=== PATIENT | male | born 1970 | race African-American/Black ===

== ENCOUNTER 2017-04-09 08:48 | Inpatient (IN) | payer OTHER ==
[2017-04-09] MEDS ORDERED: MORPHINE SULFATE 10 MG/ML SYRINGE IVP STA (09:18)
--- NOTE | 2017-04-09 09:21 | ED ---
General Adult HPI - General Chief complaint: Back Pain/Injury Stated complaint: TRICIA, COLD, LOWER BACK, RT SHOULDER PAIN Time Seen by Provider: 04/09/17 09:02 Source: patient, RN notes reviewed Mode of arrival: wheelchair Limitations: no limitations - History of Present Illness Initial comments: Patient is a 46-year-old male presents emergency room for multiple complaints. Patient states he has a history of chronic back pain. Patient states back pain has been getting worse today. Patient states he takes [place] at home. Patient states [place] was not relieving his symptoms. Patient also states he's having right shoulder pain. Patient states his right shoulder pain has been chronic for the past few months. Patient also states that he is feeling short of breath. Patient has been feeling short of breath for the past 3 days and has worsened this morning when he woke up. Patient states he feels like he can't get in a full breath. Patient states has history of pneumonia. Patient denies smoking. Patient denies chest pain. Patient states when he takes a deep breath he's having pain in his mid back area between his shoulder blades. Patient states he's had a wet cough for the past few days. Patient states he's been having on and off chills. Patient states he's feeling dizzy. Patient denies headache. Patient nausea or vomiting. Patient denies abdominal pain. Patient states he is on insulin for type 2 diabetes and blood pressure medications. - Related Data Home Medications Medication Instructions Recorded Confirmed HYDROcodone/APAP 7.5-325MG [[place] 1 tab PO TID PRN 07/19/14 04/09/17 7.5-325] Insulin Glargine [Lantus] 60 unit SQ QAM 07/22/14 04/09/17 Insulin Glulisine [Apidra] 5 units SQ [id number] 04/29/15 04/09/17 Insulin Glulisine [Apidra] 10 units SQ BID 04/29/15 04/09/17 Carvedilol [Coreg] 12.5 mg PO BID 04/09/17 04/09/17 Ergocalciferol [Vitamin D2] 50,000 unit PO MCCARTHY 04/09/17 04/09/17 Lisinopril [Zestril] 10 mg PO DAILY 04/09/17 04/09/17 prednisoLONE ACETATE 1% OPHTH 1 drops RIGHT EYE BID 04/09/17 04/09/17 [Pred Forte 1%] Previous Rx's Medication Instructions Recorded amLODIPine [Norvasc] 10 mg PO DAILY #30 tab 05/01/15 Allergies Allergy/AdvReac Type Severity Reaction Status Date / Time peanut Allergy Anaphylaxis Verified 04/09/17 09:24 Review of Systems ROS Statement: Those systems with pertinent positive or pertinent negative responses have been documented in the HPI. ROS Other: All systems not noted in ROS Statement are negative. Past Medical History Past Medical History: Diabetes Mellitus, Fibromyalgia, Hypertension, Pneumonia, Renal Disease, Sleep Apnea/CPAP/BIPAP Additional Past Medical History / Comment(s): Obesity, chronic renal failure secondary to DM, Lower back pain, carpal tunnel, herniated lumbar disk, fibromylagia, glaucoma History of Any Multi-Drug Resistant Organisms: MRSA Date of last positivie culture/infection: 2012 MDRO Source:: lower back Past Surgical History: No Surgical Hx Reported, Back Surgery Additional Past Surgical History / Comment(s): Incision and drainage r/t abcess removed, eye surgery Past Anesthesia/Blood Transfusion Reactions: Postoperative Nausea & Vomiting ( PONV) Past Psychological History: No Psychological Hx Reported Smoking Status: Never smoker Past Alcohol Use History: None Reported Past Drug Use History: None Reported - Past Family History Father Family Medical History: Diabetes Mellitus, Hypertension Additional Family Medical History / Comment(s): Bladder cancer in father, brother had colon cancer, mother had DIRECTOR PERIOPERATIVE aneurysm. Mother Additional Family Medical History / Comment(s): Mother of brain aneurysm General Exam - General Exam Comments Initial Comments: Sitting in exam room, mild distress Limitations: no limitations General appearance: alert Head exam: Present: atraumatic, normocephalic, normal inspection Eye exam: Present: normal appearance ENT exam: Present: normal exam Neck exam: Present: normal inspection Respiratory exam: Present: decreased breath sounds. Absent: respiratory distress Cardiovascular Exam: Present: regular rate, normal rhythm, normal heart sounds Extremities exam: Present: normal inspection Back exam: Present: normal inspection Neurological exam: Present: alert, oriented X3, CN II-XII intact Psychiatric exam: Present: normal affect, normal mood Skin exam: Present: warm, dry, intact, normal color. Absent: rash Course Vital Signs 04/09/17 04/09/17 04/09/17 08:52 09:03 10:27 Temperature 98.1 F Pulse Rate 98 89 Respiratory 20 24 24 Rate Blood Pressure 186/87 186/86 O2 Sat by Pulse 95 95 Oximetry 04/09/17 04/09/17 04/09/17 10:29 11:23 11:28 Temperature Pulse Rate 93 89 91 Respiratory 22 22 Rate Blood Pressure 186/86 169/79 O2 Sat by Pulse 94 L 95 Oximetry 04/09/17 04/09/17 04/09/17 11:31 12:46 14:06 Temperature 98.6 F 97.3 F L Pulse Rate 90 89 85 Respiratory 24 20 Rate Blood Pressure 210/88 151/77 O2 Sat by Pulse 99 98 Oximetry 04/09/17 14:07 Temperature 97.3 F L Pulse Rate 85 Respiratory 20 Rate Blood Pressure 151/77 O2 Sat by Pulse 98 Oximetry EKG Findings - EKG Comments: EKG Findings:: Normal sinus rhythm, ventricular rate 97 bpm, NH interval 170 ms , QRS duration 80 ms, QT/QTC 360/457 ms Medical Decision Making - Medical Decision Making Patient is a 46-year-old male presents emergency room for evaluation of back pain, shoulder pain and shortness of breath. Patient noted to have an elevated d-dimer. Due to BUN/creatinine patient was sent for a VQ scan. VQ scan negative for PE. Chest x-ray significant for atypical pneumonia. Patient be started on IV antibiotics and admitted. Case discussed with Dr. Kimble who discussed case Dr. Adler who agreed to admit patient. - Lab Data Result diagrams: 04/09/17 09:36 04/09/17 09:36 Lab Results 04/09/17 04/09/17 04/09/17 Range/Units 09:36 09:36 09:36 WBC 10.2 (3.8-10.6) k/uL RBC 4.68 (4.30-5.90) m/uL Hgb 14.0 (13.0-17.5) gm/dL Hct 42.1 (39.0-53.0) % MCV 89.9 (80.0-100.0) fL MCH 29.9 (25.0-35.0) pg MCHC 33.2 (31.0-37.0) g/dL RDW 12.8 (11.5-15.5) % Plt Count 189 (150-450) k/uL Neutrophils % 78 % Lymphocytes % 16 % Monocytes % 4 % Eosinophils % 2 % Basophils % 0 % Neutrophils # 7.9 H (1.3-7.7) k/uL Lymphocytes # 1.6 (1.0-4.8) k/uL Monocytes # 0.4 (0-1.0) k/uL Eosinophils # 0.2 (0-0.7) k/uL Basophils # 0.0 (0-0.2) k/uL PT (9.0-12.0) sec INR (<1.1) APTT (22.0-30.0) sec D-Dimer (<0.60) mg/L FEU Sodium 143 (137-145) mmol/L Potassium 4.4 (3.5-5.1) mmol/L Chloride 110 H (98-107) mmol/L Carbon Dioxide 24 (22-30) mmol/L Anion Gap 9 mmol/L BUN 46 H (9-20) mg/dL Creatinine 4.83 H (0.66-1.25) mg/dL Est GFR (MDRD) Af Amer 16 (>60 ml/min/1.73 sqM) Est GFR (MDRD) Non-Af 13 (>60 ml/min/1.73 sqM) Glucose 92 (74-99) mg/dL Calcium 8.5 (8.4-10.2) mg/dL Magnesium 1.9 (1.6-2.3) mg/dL Total Bilirubin 0.6 (0.2-1.3) mg/dL AST 18 (17-59) U/L ALT 27 (21-72) U/L Alkaline Phosphatase 73 (38-126) U/L Total Creatine Kinase 575 H (55-170) U/L CK-MB (CK-2) 4.2 H* (0.0-2.4) ng/mL CK-MB (CK-2) Rel Index 0.7 Troponin I 0.024 (0.000-0.034) ng/mL NT-Pro-B Natriuret Pep pg/mL Total Protein 6.3 (6.3-8.2) g/dL Albumin 3.4 L (3.5-5.0) g/dL 04/09/17 04/09/17 Range/Units 09:36 09:36 WBC (3.8-10.6) k/uL RBC (4.30-5.90) m/uL Hgb (13.0-17.5) gm/dL Hct (39.0-53.0) % MCV (80.0-100.0) fL MCH (25.0-35.0) pg MCHC (31.0-37.0) g/dL RDW (11.5-15.5) % Plt Count (150-450) k/uL Neutrophils % % Lymphocytes % % Monocytes % % Eosinophils % % Basophils % % Neutrophils # (1.3-7.7) k/uL Lymphocytes # (1.0-4.8) k/uL Monocytes # (0-1.0) k/uL Eosinophils # (0-0.7) k/uL Basophils # (0-0.2) k/uL PT 10.7 (9.0-12.0) sec INR 1.1 (<1.1) APTT 25.6 (22.0-30.0) sec D-Dimer 1.71 H (<0.60) mg/L FEU Sodium (137-145) mmol/L Potassium (3.5-5.1) mmol/L Chloride (98-107) mmol/L Carbon Dioxide (22-30) mmol/L Anion Gap mmol/L BUN (9-20) mg/dL Creatinine (0.66-1.25) mg/dL Est GFR (MDRD) Af Amer (>60 ml/min/1.73 sqM) Est GFR (MDRD) Non-Af (>60 ml/min/1.73 sqM) Glucose (74-99) mg/dL Calcium (8.4-10.2) mg/dL Magnesium (1.6-2.3) mg/dL Total Bilirubin (0.2-1.3) mg/dL AST (17-59) U/L ALT (21-72) U/L Alkaline Phosphatase (38-126) U/L Total Creatine Kinase (55-170) U/L CK-MB (CK-2) (0.0-2.4) ng/mL CK-MB (CK-2) Rel Index Troponin I (0.000-0.034) ng/mL NT-Pro-B Natriuret Pep 429 pg/mL Total Protein (6.3-8.2) g/dL Albumin (3.5-5.0) g/dL - Radiology Data Radiology results: report reviewed, image reviewed Disposition Clinical Impression: Pneumonia, Chronic renal failure Disposition: ADMITTED IP TO THIS [facility] Condition: Stable Referrals: Shailesh Vazquez MD [Primary Care Provider] - 1-2 days Decision Date: 04/09/17
--- NOTE | 2017-04-09 10:00 | XR ---
EXAMINATION TYPE: XR chest 2V DATE OF EXAM: 04/09/2017 9:54 AM COMPARISON: NONE TECHNIQUE: PA and lateral views submitted. HISTORY: Chest pain FINDINGS: The lungs are clear and there is no pneumothorax, pleural effusion, or focal pneumonia. Diffuse int erstitial pattern. IMPRESSION: 1. Perihilar interstitial pattern can be seen with interstitial pneumonitis or atypical pneumonia. No pleural fluid for venous congestion felt less likely. Correlate clinically. Opportunistic infection in the differential diagnosis.
[2017-04-09 10:06] LABS: Basophils % (A) 0 %; CHCM 32.4; Eosinophils # (A) 0.2 k/uL (0-0.7); Eosinophils % (A) 2 %; HCT 42.1 % (39.0-53.0); HDW 2.73; Luc # (Auto) 0.11; Luc % (Auto) 1; Lymphocytes # (A) 1.6 k/uL (1.0-4.8); Lymphocytes % (A) 16 %; MCH 29.9 pg (25.0-35.0); MCHC 33.2 g/dL (31.0-37.0); MCV 89.9 fL (80.0-100.0); Mean Platelet Volume 8.3; Monocytes # (A) 0.4 k/uL (0-1.0); Monocytes % (A) 4 %; Neutrophils # (A) 7.9 k/uL (1.3-7.7); Neutrophils % (A) 78 %; RBC 4.68 m/uL (4.30-5.90); RDW 12.8 % (11.5-15.5); WBC 10.2 k/uL (3.8-10.6); WBC (Perox) 9.62
[2017-04-09 10:17] LABS: INR 1.1 (<1.1); Partial Thromboplastin Time 25.6 sec (22.0-30.0); Prothrombin Time 10.7 sec (9.0-12.0)
[2017-04-09 10:22] LABS: Calcium 8.5 mg/dL (8.4-10.2); Magnesium 1.9 mg/dL (1.6-2.3); Potassium 4.4 mmol/L (3.5-5.1); Total Bilirubin 0.6 mg/dL (0.2-1.3); Total Protein 6.3 g/dL (6.3-8.2)
[2017-04-09 10:50] LABS: Troponin I 0.024 ng/mL (0.000-0.034)
[2017-04-09 10:51] LABS: Creatine Kinase MB 4.2 ng/mL (0.0-2.4)
[2017-04-09] MEDS ORDERED: IPRATROPIUM-ALBUTEROL 3 ML NEB INHALATION STA (11:11)
[2017-04-09] MEDS ORDERED: SODIUM CHLORIDE 0.9% 1,000 ML IV ONE (11:16)
[2017-04-09] MEDS ORDERED: HYDROmorphone 1 MG/ML 1 ML SYRINGE IVP STA (12:33)
--- NOTE | 2017-04-09 13:09 | NM ---
EXAMINATION TYPE: NM pul perfusion DATE OF EXAM: 04/09/2017 12:37 PM COMPARISON: 12/25/2015 HISTORY: elevated d-dimer, SOB, CKD Following administration of 5.5 mCi Tc 99m MAA. Images obtained post injection. FINDINGS: Perfusion images demonstrate homogeneous distribution of radiotracer throughout both lung bryant. No filling defects seen. IMPRESSION: Normal study
[2017-04-09] MEDS ORDERED: ACETAMINOPHEN TAB 325 MG TAB PO PRN (13:35)
[2017-04-09] MEDS ORDERED: NALOXONE 0.4 MG/ML 1 ML VIAL IV PRN (13:35)
[2017-04-09] MEDS ORDERED: LEVOFLOXACIN 750MG-D5W PMX 750 MG in DEXTROSE/WATER 1 150ML.BAG IVPB STA (13:37)
[2017-04-09] MEDS: SODIUM CHLORIDE 0.9% 1,000 ML IV SCH ×2 (14:02→21:54)
[2017-04-09] MEDS ORDERED: ONDANSETRON 4 MG/2 ML VIAL IVP STA (15:07)
[2017-04-09 15:34] LABS: Hemoglobin A1C 5.7 % (4.2-6.1)
[2017-04-09] MEDS: IPRATROPIUM-ALBUTEROL 3 ML NEB INHALATION SCH ×2 (15:51→20:18)
[2017-04-09] MEDS: HYDROmorphone 1 MG/ML 1 ML SYRINGE IV PRN (17:08)
[2017-04-09] MEDS: CARVEDILOL 12.5 MG TAB PO SCH (17:08)
[2017-04-09 17:24] LABS: Glucose,Whole Blood 92 mg/dL (75-99)
[2017-04-09] MEDS: INSULIN LISPRO (humaLOG) 300 UNIT/3 ML VIAL SQ SCH ×2 (17:35→21:53)
[2017-04-09] MEDS ORDERED: IPRATROPIUM-ALBUTEROL 3 ML NEB INHALATION PRN (20:41)
[2017-04-09 21:42] LABS: Glucose,Whole Blood 116 mg/dL (75-99)
[2017-04-10] MEDS ORDERED: HYDROcodone/APAP 7.5-325MG 1 EACH TAB PO PRN (00:24)
[2017-04-10] MEDS ORDERED: ALPRAZolam 0.25 MG TAB PO PRN (00:25)
[2017-04-10] MEDS ORDERED: TEMAZEPAM 15 MG CAP PO PRN (00:25)
[2017-04-10] MEDS ORDERED: HYDROmorphone 1 MG/ML 1 ML SYRINGE IVP PRN (00:25)
[2017-04-10] MEDS: methylPREDNISolone SOD SUCCI 125 MG/2 ML VIAL IV SCH ×2 (01:00→06:10)
[2017-04-10 07:19] LABS: Glucose,Whole Blood 150 mg/dL (75-99)
[2017-04-10] MEDS: HYDROmorphone 1 MG/ML 1 ML SYRINGE IV PRN (07:52)
[2017-04-10] MEDS: CARVEDILOL 12.5 MG TAB PO SCH ×2 (07:53→17:39)
[2017-04-10] MEDS: PANTOPRAZOLE 40 MG TABLET PO SCH (07:53)
[2017-04-10] MEDS: INSULIN LISPRO (humaLOG) 300 UNIT/3 ML VIAL SQ SCH ×6 (07:53→17:41)
[2017-04-10] MEDS: INSULIN GLARGINE 100 UNIT/ML 10 ML VIAL SQ SCH (07:54)
[2017-04-10] MEDS: amLODIPine 10 MG TAB PO SCH (07:54)
[2017-04-10] MEDS: IPRATROPIUM-ALBUTEROL 3 ML NEB INHALATION SCH ×3 (08:07→19:00)
[2017-04-10] MEDS ORDERED: LEVOFLOXACIN 750MG-D5W PMX 750 MG in DEXTROSE/WATER 1 150ML.BAG IVPB SCH (09:00)
[2017-04-10] MEDS ORDERED: LISINOPRIL 10 MG TAB PO SCH (09:00)
[2017-04-10] MEDS: prednisoLONE ACETATE 1% OPHTH DROPS 1 ML BTL RIGHT EYE SCH (09:22)
[2017-04-10] MEDS: SODIUM CHLORIDE 0.9% 1,000 ML IV SCH ×2 (09:31→15:25)
[2017-04-10 09:43] LABS: Basophils % (A) 0 %; CH 28.6; CHCM 30.8; Eosinophils % (A) 0 %; HCT 42.2 % (39.0-53.0); HDW 2.64; Hypochromasia Moderate; Luc # (Auto) 0.03; Luc % (Auto) 0; Lymphocytes # (A) 0.8 k/uL (1.0-4.8); Lymphocytes % (A) 8 %; MCH 28.8 pg (25.0-35.0); MCHC 30.9 g/dL (31.0-37.0); MCV 93.3 fL (80.0-100.0); Mean Platelet Volume 8.1; Monocytes # (A) 0.1 k/uL (0-1.0); Monocytes % (A) 1 %; Neutrophils # (A) 9.4 k/uL (1.3-7.7); Neutrophils % (A) 91 %; RBC 4.53 m/uL (4.30-5.90); WBC 10.3 k/uL (3.8-10.6); WBC (Perox) 10.76
[2017-04-10 09:58] LABS: Calcium 8.4 mg/dL (8.4-10.2); Potassium 5.7 mmol/L (3.5-5.1); Total Bilirubin 0.6 mg/dL (0.2-1.3); Total Protein 6.3 g/dL (6.3-8.2)
--- NOTE | 2017-04-10 10:53 | XR ---
EXAMINATION TYPE: XR chest 2V DATE OF EXAM: 04/10/2017 10:41 AM COMPARISON: 04/09/2017 HISTORY: Chest pain TECHNIQUE: Frontal and lateral views of the chest are obtained. FINDINGS: Perihilar interstitial pattern persists. No evidence for pneumothorax. No pleural effusion. The cardiac silhouette size is within normal limits. The osseous structures are grossly intact. IMPRESSION: 1. Perihilar interstitial pattern persists. Linear atelectasis right lung base. Correlate for latera l pneumonia or mycoplasma pneumonia
[2017-04-10 12:07] LABS: Glucose,Whole Blood 271 mg/dL (75-99)
--- NOTE | 2017-04-10 15:33 | HP ---
DATE OF ADMISSION: DATE OF SERVICE: 04/09/2017 The chief complaints are shoulder pain, shortness of breath and feeling cold. HISTORY OF PRESENT ILLNESS: This is a 46-year-old gentleman with a past medical history of multiple medical problems including diabetes, history of fibromyalgia, hypertension, history of renal disease, history of sleep apnea, diabetes mellitus, DKA, neuropathy bilateral feet being followed by Dr. Vazquez in the outpatient setting, was not feeling well over the past few days. The patient apparently was feeling cold, was having cough and patient was complaining of some back pain also. The patient also had some trouble about 2 days ago while brushing the teeth with toothpaste and patient had aspirated some according to him. The patient also had sleep apnea, using a CPAP at 13. There is no history or any rigors or chills. No history of headache, loss of consciousness or seizures at this time. The patient came to the emergency room at [facility] and was found to have a normal WBC and creatinine was elevated up to 4.83, the baseline was around 2.9 and the V/Q scan is negative, but; however, the chest x-ray showed perihilar interstitial pattern, atypical pneumonia is also suspected. Patient admitted for further evaluation and treatment. There is no history of any chest pain or palpitation at this time. PAST MEDICAL HISTORY: History of diabetes mellitus, history of fibromyalgia, hypertension, history of chronic kidney disease, history of diabetic ketoacidosis. Medications prior to admission include: 1. [place] 7.5 t.i.d. p.r.n. 2. Vitamin D2 fifty thousand daily. 3. Prednisone. 4. Norvasc 10 mg daily. 5. Zestril 10 mg daily. 6. Apidra 10 units subQ b.i.d. and 5 units a.c. breakfast. 7. Lantus 60 units subQ q.a.m. 8. Coreg 12.5 mg b.i.d. Allergies are PEANUTS. FAMILY HISTORY: History of diabetes, hypertension, bladder cancer in the family. SOCIAL HISTORY: No history of smoking, no history of alcohol intake. REVIEW OF SYSTEMS: ENT: No diminished hearing or diminished vision. CARDIOVASCULAR: No angina or palpitation. RESPIRATION: As mentioned earlier. GI: No nausea. : No dysuria. NERVOUS SYSTEM: As mentioned earlier. ALLERGY/IMMUNOLOGY: No asthma or hayfever. MUSCULOSKELETAL: As mentioned earlier. HEMATOLOGY/ONCOLOGY: No history of anemia. ENDOCRINE: As mentioned earlier. CONSTITUTIONAL: As mentioned earlier. DERMATOLOGY: Negative. RHEUMATOLOGY: Negative. PSYCHIATRY: As mentioned earlier. PHYSICAL EXAM: Patient is alert and oriented x3. Pulse 82, blood pressure 125/95, respirations 20, temperature is 97.1, pulse ox 98% on 3 L. HEENT: Conjunctivae normal. NECK: No jugular venous distension. CARDIOVASCULAR: S1, S2, muffled. RESPIRATORY: Breath sounds diminished at the bases, a few scattered rhonchi, expiratory wheezing and crackles also. Abdomen is soft, obese, nontender, no mass palpable. LEGS: Minimal bilateral leg edema. NERVOUS SYSTEM: Higher functions as mentioned, moves all 4 limbs, no focal deficits. LYMPHATICS: No lymph node enlargement in the neck, axillae or groin. SKIN: No ulcer, rash or bleeding. Labs are CBC within normal limits. D-dimer is 1.71 and creatinine is 4.83. Creatinine kinase is 575. Albumin is 3.4. ASSESSMENT: 1. Chronic obstructive pulmonary disease acute exacerbation with acute purulent tracheobronchitis with possible bronchopneumonia or aspiration pneumonia. 2. Acute renal failure, possibly with prerenal factors. 3. Chronic kidney disease stage IV. 4. Elevated creatinine kinase, possible acute rhabdomyolysis. 5. Elevated D-dimer with no evidence of pulmonary embolism. 6. Diabetes mellitus type 2. 7. History of fibromyalgia. 8. History of hypertension, essential. 9. History of pneumonia. 10. History of sleep apnea. 11. History of bilateral peripheral neuropathy. 12. History of glaucoma. 13. Diabetic nephropathy. 14. History of sleep apnea, on CPAP 13. 15. History of methicillin-resistant Staphylococcus aureus. 16. History of back surgery and degenerative joint disease. 17. Obesity with body mass index of 43.8. 18. FULL CODE. RECOMMENDATION: In this 46-year-old gentleman who presented with multiple complex medical issues, will monitor the patient closely, continue with the symptomatic treatment. I will initiate bronchodilators and continue with broad-spectrum IV antibiotics with anaerobic and gram-negative coverage as well. Otherwise, I would also recommend Nephrology consultation with Dr. Werner and as well as a Pulmonology consultation with Dr. Hall. Otherwise, resume the home medications. Prognosis guarded because of multiple complex medical issues. Further recommendations to follow. A copy of this will be forwarded to Dr. Vazquez who is the primary physician. Will repeated the CK also. The exact etiology of rhabdomyolysis unknown at this time. I would hold Zestril for now and continue with the Coreg and continue to monitor.
--- NOTE | 2017-04-10 15:38 | CONS ---
DATE OF CONSULTATION: April 10, 2017. REASON FOR CONSULTATION: Renal failure. HISTORY OF PRESENT ILLNESS: Patient is a 46-year-old male who was admitted to the hospital with complaints of cough not feeling well. He also had back pain. Patient was more short of breath. He denied any significant chest pain. The chest x-ray showed perihilar interstitial pattern with possible atypical pneumonia interstitial pneumonitis. Nuclear scan was also done, which showed no evidence to suggest PE. Patient denies any significant swelling in the lower extremities. He is maintained on IV fluids at about 100 mL an hour. Patient does have CKD secondary to diabetic kidney disease with baseline creatinine about 2.5 mg/dL. PAST MEDICAL HISTORY: Type 2 diabetes, hypertension, CKD stage IIIB more recently stage IV with baseline GFR at about 23 to 25 mL/min with serum creatinine recently at about 3 to 3.3 mg/dL. Past medical history is also significant for fibromyalgia, obstructive sleep apnea, osteoarthritis, glaucoma. PAST SURGICAL HISTORY: Back surgery, I&D of an abscess on the foot. SOCIAL HISTORY: Negative for smoking, drug abuse or alcohol abuse. Medications at home included: Insulin, Coreg, Zestril, vitamin D 2, Norvasc, [place]. ALLERGIES INCLUDE PEANUTS. Review of systems as per HPI. Other systems negative. On examination, the patient is comfortable, awake. She is not in any acute distress. Blood pressure is 142/73, heart rate 78 per minute. He is afebrile. Examination of the heart: S1 and S2. Examination of the lungs: Bilateral breath sounds are heard. Abdomen is soft, nontender. Examination of lower extremities shows no significant edema. Labs show sodium 138, potassium 5.7, BUN 45, serum creatinine 4.8. Hemoglobin 13.0 g/dL, calcium 8.4. ASSESSMENT: 1. Acute kidney injury on top of chronic kidney disease, possibly acute tubular necrosis, currently nonoliguric. Continue off of ERNIE inhibitors given the hyperkalemia and acute kidney injury. Currently patient is maintained on IV fluids, which I will decrease to about 50 mL an hour. 2. Possible pneumonia, atypical. Maintained on antibiotics. Chest x-ray showing interstitial pattern. 3. Chronic kidney disease, stage IV, secondary to diabetic nephropathy with baseline creatinine more recently at about 3 to 3.3 mg/dL. 4. Type 2 diabetes. PLAN: Decrease IV fluids. Continue with empiric antibiotics, maintain off of ERNIE inhibitors, maintain patient on low potassium diet and repeat labs in a.m. Check urinalysis. Thank you for this consultation. Will continue to follow the patient with you during his hospitalization.
[2017-04-10 16:40] LABS: Glucose,Whole Blood 303 mg/dL (75-99)
--- NOTE | 2017-04-10 17:11 | CONS ---
DATE OF CONSULTATION: This is a 46-year-old black male who apparently presented to the emergency room with a number of different complaints. He tells me that he actually came in with back pain. It is mostly right-sided. It had been getting worse. The patient states he took [place] at home, but it was not really relieving his pain. Also, right shoulder pain. That has been going on for quite some time. In addition, he was doing a bit short of breath. He does mention about 3 days ago that he apparently aspirated some water. He states that since that time his breathing has gotten a little worse. The patient denies any fever or chills. No nausea, vomiting, or diarrhea. No chest pain. Not producing any phlegm. He states it is just hard for him to take a deep breath. It sounds to me like he maybe has some pleurisy and/or other issues related to the shoulder into to the back area, which causes him difficulty in taking a deep breath. He looks pretty comfortable here in the room. His primary doctor is Dr. Vazquez. He apparently has seen my partner in the past maybe on a previous admission. He did have a chest x-ray which showed perihilar interstitial pattern which could be typical of interstitial pneumonitis or atypical pneumonia. No pleural fluid. No venous congestion. Again, he is not acting particularly ill or sick. His home medications include [place], insulin, Coreg, vitamin D2, lisinopril and eye drops. He has also been on amlodipine in the past. ALLERGIES: PEANUTS. Medical history includes diabetes, fibromyalgia, hypertension, pneumonia, renal disease and sleep apnea syndrome, for which he uses CPAP nightly. He also has a history of diabetic nephropathy, carpal tunnel syndrome and also has a history of herniated lumbar disc with glaucoma. Other medical problems are noted in emergency room H&P. Surgical history includes back surgery and incision and drainage of an abscess. He also has had some eye procedures. Social history is negative for tobacco use. He denies any alcohol use. Denies any illicit drug use. Family history is positive for hypertension and diabetes. There is also a family history of bladder cancer and also history of colon cancer. Aneurysm also runs in his family. The rest of his history is not too remarkable. REVIEW OF SYSTEMS: CONSTITUTIONAL: Negative. NEUROLOGICAL: Negative. HEENT: Negative. CARDIOVASCULAR: Negative. PULMONARY: Difficulty in taking a deep breath, no cough. No phlegm. GI/: Negative. RHEUMATOLOGICAL/IMMUNOLOGIC: Negative. ENDOCRINOLOGIC: Negative. DERMATOLOGIC: Negative. Again his major complaints in the history portion of the evaluation was primarily shoulder and right back pain. Current vital signs show temperature which is 97.7, heart rate 78, respiratory rate 20, blood pressure 156/94, 2 liters saturation 98%, on room air saturation 92%. Appears in no acute distress. Again does not appear to be ill in any sort of way. HEENT examination is grossly unremarkable. Mucous membranes are moist. No oral lesions. Neck is supple. Full range of motion. No adenopathy or thyromegaly. Cardiovascular examination reveals regular rhythm rate. Lungs are relatively clear no wheezes or rhonchi. No crackles. ABDOMEN: Soft but obese. EXTREMITIES: Intact. No cyanosis, clubbing or edema. Skin is without rash. NEUROLOGICAL: Nonfocal. Labs are reviewed. White count 10.3, hemoglobin 13, hematocrit 42.2, platelet count 190,000. PT, INR, PTT normal. D-dimer 1.71. Sodium and potassium normal. Chloride is 110, CO2 of 24, BUN and creatinine were 46 and 4.83. His CK was 575, CK-MB was 4.2. N-terminal proBNP 429, albumin 3.4. He had a VQ scan which was normal. His chest x-ray, which I cannot view or pull up on the PACS system, apparently shows perihilar interstitial pattern. Medications are reviewed. From the pulmonary standpoint, he is on Solu-Medrol which I am going to discontinue, Levaquin, updrafts and his usual medications. ASSESSMENT: 1. Doubt significant pneumonia as the patient does really does not have any pneumonic symptoms other than shortness of breath. I could not see the x-ray, but the x-ray could be consistent with fluid overload as well. 2. History of diabetes mellitus with diabetic and organ involvement including diabetic nephropathy. 3. Chronic kidney disease. 4. Fibromyalgia. 5. Hypertension. 6. History of sleep apnea. 7. Obesity. PLAN: I am going to discontinue the steroids. He can continue with the antibiotics and the updrafts. Will continue to follow. I do not suspect that this is a significant pneumonic process. It may just relate to fluid overload. Unfortunately, though I cannot bring up is x-ray on the PACS system to look at it myself. Again, he is not having any fever or chills. No cough. No phlegm production. Nothing to suggest an active infection at this time.
[2017-04-10 17:39] LABS: Appearance,Urine Clear (Clear); Bacteria,Urine Rare /hpf; Bilirubin,Urine Negative (Negative); Glucose,Urine (UA) 3+ (Negative); Ketones,Urine Negative (Negative); Leukocyte Esterase,Urine Negative (Negative); Mucus,Urine Rare /hpf; Nitrite,Urine Negative (Negative); Particle Count 4716; Protein,Urine 3+ (Negative); RBC,Urine 3 /hpf (0-5); Specific Gravity,Urine 1.009 (1.001-1.035); Squamous Epithelial Cell,Urine <1 /hpf (0-4); UA Billing (MACRO vs. MICRO) MICRO; Urobilinogen,Urine <2.0 mg/dL (<2.0); WBC,Urine 2 /hpf (0-5)
[2017-04-10 23:06] LABS: Glucose,Whole Blood 291 mg/dL (75-99)
[2017-04-11] MEDS ORDERED: methylPREDNISolone SOD SUCCI 125 MG/2 ML VIAL ONE
[2017-04-11] MEDS ORDERED: ERGOCALCIFEROL 50,000 UNIT CAP PO SCH (00:24)
[2017-04-11] MEDS: HYDROmorphone 1 MG/ML 1 ML SYRINGE IV PRN (03:28)
[2017-04-11 07:20] LABS: Glucose,Whole Blood 279 mg/dL (75-99)
[2017-04-11] MEDS: INSULIN LISPRO (humaLOG) 300 UNIT/3 ML VIAL SQ SCH ×8 (07:34→22:38)
[2017-04-11] MEDS: SODIUM CHLORIDE 0.9% 1,000 ML IV SCH ×4 (07:34→17:20)
[2017-04-11] MEDS: prednisoLONE ACETATE 1% OPHTH DROPS 1 ML BTL RIGHT EYE SCH ×3 (07:35→22:36)
[2017-04-11] MEDS: INSULIN GLARGINE 100 UNIT/ML 10 ML VIAL SQ SCH (07:56)
[2017-04-11] MEDS: amLODIPine 10 MG TAB PO SCH (07:56)
[2017-04-11] MEDS: PANTOPRAZOLE 40 MG TABLET PO SCH (07:56)
[2017-04-11] MEDS: CARVEDILOL 12.5 MG TAB PO SCH ×2 (07:56→17:21)
[2017-04-11] MEDS: IPRATROPIUM-ALBUTEROL 3 ML NEB INHALATION SCH ×3 (08:08→19:22)
[2017-04-11 11:47] LABS: Calcium 8.5 mg/dL (8.4-10.2); Potassium 5.9 mmol/L (3.5-5.1)
[2017-04-11 11:53] LABS: Glucose,Whole Blood 342 mg/dL (75-99)
--- NOTE | 2017-04-11 11:59 | PN ---
DATE OF SERVICE: 04/10/2017 This 46-year-old gentleman who was admitted with COPD exacerbation, also positive for pneumonia, renal failure, also. The creatinine is worse, up to 4.8. Currently the patient on broad-spectrum IV antibiotics. The patient is being closely monitored. PAST MEDICAL HISTORY: Reviewed. REVIEW OF SYSTEMS: CARDIOVASCULAR: No angina or palpitations. RESPIRATORY: As mentioned earlier. GI: As mentioned earlier. : No dysuria. NERVOUS: No numbness or weakness. Current medications are reviewed and include: 1. Tylenol 650 every 6 hours. 2. [place] 7.5. 3. DuoNeb q.i.d. and p.r.n. 4. Xanax 0.5 t.i.d. 5. Norvasc 10 mg daily. 6. Coreg 12.5 mg b.i.d. 7. Vitamin B2, 3000 Wednesday. 8. Dilaudid 1 mg q.3 p.r.n. and 4.5 mg every 6 hours as needed. 9. Lantus 16 units q.a.m. 10. Humalog. 11. Levaquin 750 every 48 hours and 12. Protonix 40 mg daily. 13. Restoril 15 mg p.o. daily. On physical exam, the patient is alert and oriented x3. Pulse 100, blood pressure 140/70, respirations 18, temperature is 97 degrees, pulse ox is 97% on 3L. HEENT: Conjunctivae normal. NECK: No jugular venous distension. CARDIOVASCULAR: S1 and S2 muffled. RESPIRATORY: Breath sounds diminished in the bases. Bilateral scattered rhonchi and crackles. ABDOMEN: Soft, obese, nontender. LEGS: No edema. NERVOUS SYSTEM: No focal deficits. Labs are creatinine 4.8 and creatine kinase 575. ASSESSMENT: 1. Chronic obstructive pulmonary disease acute exacerbation, acute purulent tracheobronchitis with possible bronchopneumonia or aspiration pneumonia. 2. Acute renal failure, possibly prerenal factors. 3. Chronic renal failure stage 4. 4. Elevated creatine kinase, possible rhabdomyolysis. 5. Elevated D-dimer with no evidence of pulmonary embolus. 6. Diabetes mellitus type 2. 7. History of fibromyalgia. 8. Hypertension, essential. 9. History of pneumonia. 10. Sleep apnea. 11. Bilateral peripheral neuropathy. 12. History of glaucoma. 13. History of diabetic nephropathy. 14. History of sleep apnea on continuous positive airway pressure. 15. History of methicillin-resistant Staphylococcus aureus. 16. History of back surgery, degenerative joint disease. 17. Obesity with body mass index of 42.9. 18. FULL CODE. RECOMMENDATIONS AND DISCUSSION: Continue with current medications. Continue with bronchodilators. Continue symptomatic treatment. Otherwise at this time, monitor renal function closely. I would also recommend continue with empiric antibiotics. Repeat labs in the morning. Increase ambulation, bronchodilators. Guarded prognosis. I have discussed the patient and family, who understand. Further recommendations to follow.
[2017-04-11 12:06] LABS: Basophils % (A) 0 %; CH 28.8; CHCM 31.3; Eosinophils % (A) 0 %; HDW 2.55; HGB 12.3 gm/dL (13.0-17.5); Hypochromasia Slight; Luc # (Auto) 0.02; Luc % (Auto) 0; Lymphocytes # (A) 0.9 k/uL (1.0-4.8); Lymphocytes % (A) 7 %; MCH 29.2 pg (25.0-35.0); MCHC 31.6 g/dL (31.0-37.0); MCV 92.6 fL (80.0-100.0); Mean Platelet Volume 8.7; Monocytes # (A) 0.2 k/uL (0-1.0); Monocytes % (A) 2 %; Neutrophils # (A) 11.3 k/uL (1.3-7.7); Neutrophils % (A) 91 %; RBC 4.21 m/uL (4.30-5.90); RDW 12.9 % (11.5-15.5); WBC 12.4 k/uL (3.8-10.6); WBC (Perox) 13.37
[2017-04-11 17:01] LABS: Glucose,Whole Blood 192 mg/dL (75-99)
[2017-04-11] MEDS ORDERED: SODIUM POLYSTYRENE SULFONATE 15 GM/60 ML BOTTLE PO STA (18:17)
--- NOTE | 2017-04-11 18:32 | PN ---
Patient is seen for followup for acute kidney injury on top of chronic kidney disease. He was admitted to the hospital with complaints of shortness of breath and he also had chest pain. Chest x-ray shows interstitial pattern. Currently, patient is maintained on IV fluids at about 50 mL an hour. He has been voiding. His creatinine was at 4.8 mg/dL on admission and today it is up to 5.2. Patient has been talked to regarding renal replacement therapy as outpatient and he has refused going for classes for dialysis or getting transplant evaluation. On examination, today blood pressure is 166/92, heart rate 86 per minute. He is afebrile. HEART: S1 and S2. LUNGS: Bilateral breath sounds are heard. No crackles are heard at this time. ABDOMEN: Soft, obese, nontender. Lower extremities show edema. No significant edema. 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 Labs show sodium 137, potassium 5.9, BUN 59, serum creatinine 5.2 mg/dL. ASSESSMENT: 1. Chronic kidney disease secondary to diabetic nephropathy, [employer] stage 4 with worsening renal failure. Serum creatinine up to 5.2 mg/dL. The labs were not available this morning when I saw the patient. Given his progressive renal failure, we need to readdress regarding renal replacement therapy he does not need emergency dialysis; however, I will discuss with him tomorrow regarding his options. I will also discontinue the IV fluids. 2. Bilateral interstitial infiltrates secondary to pneumonia versus fluid. Patient is maintained on antibiotics. I will discontinue the IV fluids. Patient is not significantly symptomatic today. I will repeat the chest x-ray tomorrow and start him on diuretics based on the x-ray finding tomorrow.
[2017-04-11 21:51] LABS: Glucose,Whole Blood 219 mg/dL (75-99)
--- NOTE | 2017-04-11 23:19 | PN ---
DATE OF SERVICE: 04/11/2017 This is a 46-year-old male who I saw for respiratory complaints. He had a very confusing clinical picture. I could not tell whether or not he has some mild fluid overload with interstitial edema versus atypical pneumonia. He is really not having much in the way of pneumonic symptoms. I did discontinue the steroids. I continued the updrafts and antibiotics. The patient had a borderline elevated N-terminal proBNP. He has a history of diabetes with diabetic end organ involvement, diabetic nephropathy, chronic kidney disease, fibromyalgia, hypertension, sleep apnea, and obesity. Today he was doing relatively well. No complaints of shortness of breath. No cough. No phlegm production. No wheezing. No fever, no chills. No nausea, vomiting, or diarrhea. Current vital signs are stable and include temperature 97, heart rate 81, respiratory rate 18, blood pressure 141/87, mean 105, room air saturation 94 to 95%. He appears in no acute distress. HEENT examination is grossly unremarkable. Mucous membranes are moist. No oral lesions. Neck is supple. Full range of motion. No adenopathy or thyromegaly. Cardiovascular examination reveals regular rhythm and rate. S1, S2 normal. No S3, S4, murmur. Lungs reveal mostly clear breath sounds. No wheezes or rhonchi. No crackles. Breath sounds are slightly diminished. Abdomen is soft. Bowel sounds are heard. Extremities are intact. No cyanosis, clubbing or edema. Skin is without rash. White count 12.4, hemoglobin 12.3, hematocrit 39, platelet count normal. Sodium 137, potassium 5.9, chloride 107, CO2 of 20. BUN and creatinine were 59 and 5.20, BUN and creatinine have gone up, at which time they were 45 and 4.80 respectively. Chest x-ray is reviewed. ASSESSMENT: 1. Shortness of breath, with confusing clinical picture, which may represent interstitial edema and fluid overload versus atypical pneumonia. 2. History of diabetes mellitus with diabetic and organ involvement including diabetic nephropathy. 3. Chronic kidney disease. 4. Fibromyalgia. 5. Hypertension. 6. Sleep apnea. 7. Obesity. PLAN: The patient's clinical picture has improved. Laboratory data is reviewed. It appears to me that he has potential fluid overload more than anything else. Microbiology is either pending or negative. Labs are reviewed. Medications are reviewed. I did discontinue the steroids. We did keep him on the antibiotics and breathing treatments. Will continue to follow. Clinically he is feeling better today.
[2017-04-12 06:48] LABS: Glucose,Whole Blood 121 mg/dL (75-99)
--- NOTE | 2017-04-12 08:06 | XR ---
EXAMINATION TYPE: XR chest 2V DATE OF EXAM: 04/12/2017 8:01 AM COMPARISON: 04/10/2017 TECHNIQUE: PA and lateral views submitted. HISTORY: CHF FINDINGS: The lungs are clear and there is no pneumothorax, pleural effusion, or focal pneumonia. Interstitia l pattern appears improved. IMPRESSION: 1. Improving interstitial pattern may represent resolving venous congestion or interstitial pneumonit is.
[2017-04-12] MEDS: PANTOPRAZOLE 40 MG TABLET PO SCH (08:11)
[2017-04-12] MEDS: amLODIPine 10 MG TAB PO SCH (08:11)
[2017-04-12] MEDS: INSULIN LISPRO (humaLOG) 300 UNIT/3 ML VIAL SQ SCH ×6 (08:11→21:41)
[2017-04-12] MEDS: CARVEDILOL 12.5 MG TAB PO SCH ×2 (08:11→17:28)
[2017-04-12] MEDS: prednisoLONE ACETATE 1% OPHTH DROPS 1 ML BTL RIGHT EYE SCH ×2 (08:12→21:40)
[2017-04-12] MEDS: INSULIN GLARGINE 100 UNIT/ML 10 ML VIAL SQ SCH (08:18)
[2017-04-12] MEDS ORDERED: LEVOFLOXACIN 750 MG TAB PO SCH (09:00)
[2017-04-12 09:28] LABS: Basophils % (A) 0 %; CH 28.7; CHCM 31.3; Eosinophils % (A) 0 %; HCT 38.5 % (39.0-53.0); HDW 2.55; HGB 11.9 gm/dL (13.0-17.5); Hypochromasia Slight; Luc # (Auto) 0.08; Luc % (Auto) 1; Lymphocytes # (A) 1.9 k/uL (1.0-4.8); Lymphocytes % (A) 18 %; MCH 28.6 pg (25.0-35.0); MCV 92.3 fL (80.0-100.0); Mean Platelet Volume 8.7; Monocytes # (A) 0.3 k/uL (0-1.0); Monocytes % (A) 3 %; Neutrophils % (A) 78 %; RBC 4.17 m/uL (4.30-5.90); WBC 10.3 k/uL (3.8-10.6); WBC (Perox) 11.13
[2017-04-12 10:04] LABS: Calcium 8.4 mg/dL (8.4-10.2); Potassium 4.5 mmol/L (3.5-5.1)
[2017-04-12] MEDS: IPRATROPIUM-ALBUTEROL 3 ML NEB INHALATION SCH ×3 (10:43→19:29)
[2017-04-12] MEDS: FUROSEMIDE 10 MG/ML 4 ML VIAL IV SCH ×2 (11:09→21:40)
[2017-04-12 11:56] LABS: Glucose,Whole Blood 70 mg/dL (75-99)
--- NOTE | 2017-04-12 12:15 | PN ---
DATE OF SERVICE: 04/11/2017 This 46-year-old gentleman was admitted with COPD acute exacerbation, also had possible pneumonia. The patient also had worsening renal failure. Nephrology is following the patient closely. The patient is on empiric antibiotics. The most recent chest x-ray is reviewed. IV fluids are being continued. On exam, alert and oriented x3. Pulse 88, blood pressure 160/92, respiratory rate 16, temperature 97 degrees, pulse 90% on otto air. HEENT: Conjunctivae normal. NECK: No jugular venous distention. CARDIOVASCULAR: S1 and S2, muffled. RESPIRATORY: Breath sounds diminished at the bases. A few scattered rhonchi and crackles. ABDOMEN: Soft, nontender. No mass palpable. LEGS: No edema, no swelling. NERVOUS SYSTEM: No focal deficits. LABS: At this time show WBC is 12.3, hemoglobin 12.3. Sodium 137, potassium 5.9, creatinine 5.2, Accu-Cheks 342. ASSESSMENT: 1. Chronic obstructive pulmonary disease exacerbation with acute purulent tracheobronchitis with possible bronchopneumonia or aspiration pneumonia. 2. Acute renal failure, acute with prerenal factors with acute on chronic kidney disease. 3. Chronic kidney disease, stage IV. 4. Elevated creatine kinase possible rhabdomyolysis. 5. Elevated d-dimer with no evidence of pulmonary embolism. 6. Diabetes mellitus type 2. 7. History of fibromyalgia. 8. History of essential hypertension. 9. History of degenerative joint disease. 10. History pneumonia. 11. History of sleep apnea. 12. Bilateral peripheral neuropathy. 13. History of glaucoma. 14. History of diabetic nephropathy. 15. History of sleep apnea on CPAP. 16. History of methicillin-resistant Staphylococcus aureus. 17. History of back surgery and degenerative joint disease. 18. Obesity with body mass index of 42.9. 19. FULL CODE. RECOMMENDATIONS AND DISCUSSION: In this 46-year-old gentleman with past medical history of multiple medical problems, admitted with COPD acute exacerbation. At this point, I recommend to continue the current medications and symptomatic treatment. Continue with bronchodilators and other medications. Otherwise, I would also recommend follow-up closely with nephrology because of the worsening creatinine. Renal replacement therapy may have to be readdressed. Further recommendations to follow.
--- NOTE | 2017-04-12 14:48 | PN ---
The patient is seen for follow-up for chronic kidney disease with progressive renal failure. Patient has been talked to regarding renal replacement therapy as outpatient and he has not been too keen; however, I had a discussion with him today and advised him that he will likely need to start in the next few weeks. He is ready to go for the education classes. I have advised him that he may not have much time and we need to get his vascular access in place as soon as possible. This morning, the patient denies any shortness of breath. No significant chest pain. He was admitted to the hospital with worsening shortness of breath. Chest x-ray shows pulmonary infiltrates bilaterally suggestive of congestive heart failure versus atypical pneumonia. Patient is maintained on antibiotics. He was on IV fluids initially which were discontinued yesterday and I will start him on Lasix today. Overall, he states that his respiratory status has improved since admission. On examination, blood pressure is 158/77, heart rate 80 per minute. He is afebrile. Examination of the heart: S1 and S2. Examination of the lungs: Decreased breath sounds in the bases. No crackles are heard. Abdomen is soft, nontender, obese. Examination of lower extremities shows edema 1+ bilaterally. 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 Patient is moving all 4 extremities. Labs show sodium 141, potassium 4.5. Hemoglobin 11.9, serum creatinine 5.28. ASSESSMENT: 1. Progressive renal failure secondary to diabetic nephropathy and nephrosclerosis. No indication for dialysis. Currently; however, patient is advised that he will most likely need to start in the next few weeks and that we need to get placement of an AV fistula as soon as possible. He is also willing to go for education classes as outpatient. 2. Volume overload, start diuresis. 3. Hypertension, partly volume sensitive. 4. Type 2 diabetes. PLAN: Start Lasix. Repeat labs in a.m. patient will need close follow-up and he will need to be set for education classes as outpatient and he will need to see Vascular Surgery for AV fistula placement.
--- NOTE | 2017-04-12 16:45 | P.PN ---
Subjective Date of service 04/12/2017. Progress note being dictated for Dr. Adler. Interval history: This a 46-year-old gentleman admitted with acute exacerbation of COPD with purulent tracheobronchitis, possible bronchopneumonia, possible aspiration pneumonia, acute renal failure, chronic kidney disease and multiple other medical issues. Maintained on empiric antibiotics and IV fluids. Renal function continues to worsen. IV fluids discontinued this morning and Lasix initiated as per nephrology. Chest x-ray reporting improvement. Dr. Medeiros discussed Hemodialysis with patient, initially refused and declined education class. Currently willing to go to education class, OP. Objective - Vital Signs Vital signs: Vital Signs Temp 98.4 F 04/12/17 15:00 Pulse 83 04/12/17 15:00 Resp 24 04/12/17 15:00 BP 140/83 04/12/17 15:00 Pulse Ox 96 04/12/17 15:00 Intake & Output 04/11/17 04/12/17 04/12/17 18:59 06:59 18:59 Intake Total 1040 Balance 1040 Intake: Oral 1040 Other: Voiding Method Toilet # Voids 3 2 - Exam PHYSICAL EXAM: VITAL SIGNS: As above GENERAL: [Sitting up at side of bed, no acute distress] HEENT: [Pupils equal conjunctiva normal. No conjunctival pallor] NECK: [Supple, no JVD] RESPIRATORY EFFORT:[ Normal] LUNGS: []Bilateral bases diminished, occasional fine scattered rhonchi. CARDIOVASCULAR[ regular S1 and S2, no murmurs rubs or gallop] GI: [Abdomen soft, nontender, obese, positive bowel sounds.] PSYCH: [Alert and oriented -3, mood and affect normal.] NEURO: [No focal deficits, moves all 4 extremities, strength and sensation grossly intact.] - Labs CBC & Chem 7: 04/12/17 09:05 04/12/17 09:05 Labs: Abnormal Lab Results - Last 24 Hours (Table) 04/11/17 04/11/17 04/12/17 Range/Units 16:59 21:30 06:47 RBC (4.30-5.90) m/uL Hgb (13.0-17.5) gm/dL Hct (39.0-53.0) % Neutrophils # (1.3-7.7) k/uL BUN (9-20) mg/dL Creatinine (0.66-1.25) mg/dL Glucose (74-99) mg/dL POC Glucose (mg/dL) 192 H 219 H 121 H (75-99) mg/dL 04/12/17 04/12/17 04/12/17 Range/Units 09:05 09:05 11:54 RBC 4.17 L (4.30-5.90) m/uL Hgb 11.9 L (13.0-17.5) gm/dL Hct 38.5 L (39.0-53.0) % Neutrophils # 8.0 H (1.3-7.7) k/uL BUN 63 H (9-20) mg/dL Creatinine 5.28 H* (0.66-1.25) mg/dL Glucose 138 H (74-99) mg/dL POC Glucose (mg/dL) 70 L (75-99) mg/dL Assessment and Plan Plan: 1. [ Acute exacerbation of COPD with purulent Tracheobronchitis, possible bronchopneumonia or aspiration pneumonia]. 2. [ Acute on chronic kidney disease, stage IV]. 3. [ Elevated CK, possible rhabdomyolysis]. 4. [ Elevated d-dimer with no evidence of PE]. 5. [ Diabetes mellitus type 2]. 6. [ Fibromyalgia]. 7. [ Essential hypertension]. 8. Degenerative joint disease 9. Sleep apnea, on CPAP 10. Diabetic neuropathy 11. Glaucoma, history of 12. History of MRSA 13. Obesity, BMI 43.8 Plan: Continue on current medication regime ,monitoring and symptomatic treatment. Diuretics as per nephrology. Per discussion with nephrology, patient currently will be worked up for dialysis outpatient as he is now willing to attend education classes. Maintain/document strict urine output, discussed with RN. Discharge planning in progress potentially tomorrow. Further recommendations to follow. The impression and plan of care has been dictated as directed. : I performed a H&P examination of this patient and discussed the same with the dictator. I agree with the dictator's note. Any additional findings/opinions/ etc. will be noted.
--- NOTE | 2017-04-12 16:58 | P.PN ---
Subjective This patient is resting comfortably in bed. The patient has no significant respiratory distress. He was hospitalized for an acute COPD exacerbation with secondary bronchitis and questionable aspiration pneumonia. However, the patient has multiple other medical positive comorbidities most significant of which is chronic renal failure and the patient declined dialysis in the past, he is diabetic and has hypertension and has obstructive sleep apnea with CPAP therapy and has diabetic neuropathy and he is obese. I'm seeing this patient in follow-up. He has no specific complaints. I reviewed the chest x-ray there is some mild interstitial prominence without any other acute abnormalities. He is free of any chest pain. Objective - Vital Signs Vital signs: Vital Signs Temp 98.4 F 04/12/17 15:00 Pulse 83 04/12/17 15:00 Resp 24 04/12/17 15:00 BP 140/83 04/12/17 15:00 Pulse Ox 96 04/12/17 15:00 Intake & Output 04/11/17 04/12/17 04/12/17 18:59 06:59 18:59 Intake Total 1040 Balance 1040 Intake: Oral 1040 Other: Voiding Method Toilet # Voids 3 2 - Exam The patient appeared well nourished and normally developed. Vital signs as documented. Head exam is unremarkable. No scleral icterus or corneal arcus noted. Neck is without jugular venous distension, thyromegaly, or carotid bruits. Carotid upstrokes are brisk bilaterally. Lungs are clear to auscultation and percussion. Cardiac exam reveals the PMI to be normally sized and situated. Rhythm is regular. First and second heart sounds normal. No murmurs, rubs or gallops. Abdominal exam reveals normal bowel sounds, no masses , no organomegaly and no aortic enlargement. Extremities are nonedematous and both femoral and pedal pulses are normal. - Labs CBC & Chem 7: 04/12/17 09:05 04/12/17 09:05 Labs: Abnormal Lab Results - Last 24 Hours (Table) 04/11/17 04/11/17 04/12/17 Range/Units 16:59 21:30 06:47 RBC (4.30-5.90) m/uL Hgb (13.0-17.5) gm/dL Hct (39.0-53.0) % Neutrophils # (1.3-7.7) k/uL BUN (9-20) mg/dL Creatinine (0.66-1.25) mg/dL Glucose (74-99) mg/dL POC Glucose (mg/dL) 192 H 219 H 121 H (75-99) mg/dL 04/12/17 04/12/17 04/12/17 Range/Units 09:05 09:05 11:54 RBC 4.17 L (4.30-5.90) m/uL Hgb 11.9 L (13.0-17.5) gm/dL Hct 38.5 L (39.0-53.0) % Neutrophils # 8.0 H (1.3-7.7) k/uL BUN 63 H (9-20) mg/dL Creatinine 5.28 H* (0.66-1.25) mg/dL Glucose 138 H (74-99) mg/dL POC Glucose (mg/dL) 70 L (75-99) mg/dL Assessment and Plan Plan: Assessment 1 shortness of breath, multifactorial. I think the patient has also a component of fluid overload with interstitial edema. Atypical pneumonia is felt to be less likely. COPD exacerbation is felt to be less likely. He is currently resting comfortably in bed 2 obesity 3 diabetes mellitus 4 diabetic peripheral neuropathy 5 diabetic nephropathy and the patient has advanced renal failure, declined dialysis 6 hypertension 7 obstructive sleep apnea. 8 fibromyalgia 9 obesity Plan Continue DuoNeb nebulized treatments around the clock, continue IV Lasix, continue oral Levaquin, aggressive the medication was reviewed. The patient's condition is stable. We'll continue to follow.
[2017-04-12 17:28] LABS: Glucose,Whole Blood 126 mg/dL (75-99)
[2017-04-12 20:48] LABS: Glucose,Whole Blood 131 mg/dL (75-99)
[2017-04-13 05:58] LABS: Glucose,Whole Blood 43 mg/dL (75-99)
[2017-04-13 06:17] LABS: Glucose,Whole Blood 52 mg/dL (75-99)
[2017-04-13 06:34] LABS: Glucose,Whole Blood 89 mg/dL (75-99)
[2017-04-13 07:44] VITALS: BP 137/74; RESP 20; TEMP 98.4
--- NOTE | 2017-04-13 07:59 | PN ---
DATE OF SERVICE: 04/12/2017 This is a 46-year-old gentleman who was admitted with multiple medical problems, also had renal failure also. The creatinine has worsened up to 5.28. Seen and evaluated the patient with the nurse practitioner. Please see the nurse practitioner's notes and impression document as ascribed for further information. Dr. Medeiors has seen the patient and also Kaden and recommended possible hemodialysis to be started in the next few weeks after appropriate education as well as monitoring and creation of an IV graft. Prognosis guarded. Further recommendations to follow.
[2017-04-13] MEDS: IPRATROPIUM-ALBUTEROL 3 ML NEB INHALATION SCH ×2 (08:01→13:07)
[2017-04-13] MEDS: prednisoLONE ACETATE 1% OPHTH DROPS 1 ML BTL RIGHT EYE SCH (08:16)
[2017-04-13] MEDS: INSULIN LISPRO (humaLOG) 300 UNIT/3 ML VIAL SQ SCH ×3 (08:17→13:27)
[2017-04-13] MEDS: PANTOPRAZOLE 40 MG TABLET PO SCH (08:17)
[2017-04-13] MEDS: FUROSEMIDE 10 MG/ML 4 ML VIAL IV SCH (08:17)
[2017-04-13] MEDS: amLODIPine 10 MG TAB PO SCH (08:17)
[2017-04-13] MEDS: CARVEDILOL 12.5 MG TAB PO SCH (08:17)
[2017-04-13] MEDS ORDERED: INSULIN GLARGINE 100 UNIT/ML 10 ML VIAL SQ ONE ×2 (09:51→10:31)
[2017-04-13] MEDS: INSULIN GLARGINE 100 UNIT/ML 10 ML VIAL SQ SCH (10:11)
[2017-04-13] MEDS: HYDROmorphone 1 MG/ML 1 ML SYRINGE IV PRN (10:13)
[2017-04-13 10:45] LABS: Basophils % (A) 0 %; CH 28.6; CHCM 31.7; Eosinophils # (A) 0.1 k/uL (0-0.7); Eosinophils % (A) 1 %; HCT 39.8 % (39.0-53.0); HDW 2.57; HGB 12.8 gm/dL (13.0-17.5); Luc # (Auto) 0.07; Luc % (Auto) 1; Lymphocytes # (A) 2.2 k/uL (1.0-4.8); Lymphocytes % (A) 31 %; MCH 29.2 pg (25.0-35.0); MCHC 32.2 g/dL (31.0-37.0); MCV 90.7 fL (80.0-100.0); Mean Platelet Volume 8.2; Monocytes # (A) 0.3 k/uL (0-1.0); Monocytes % (A) 4 %; Neutrophils # (A) 4.4 k/uL (1.3-7.7); Neutrophils % (A) 63 %; RBC 4.38 m/uL (4.30-5.90); RDW 12.8 % (11.5-15.5); WBC (Perox) 7.01
[2017-04-13 11:10] LABS: Calcium 8.3 mg/dL (8.4-10.2); Potassium 3.9 mmol/L (3.5-5.1)
--- NOTE | 2017-04-13 11:21 | P.PN ---
Subjective Patient is seen in follow-up for chronic kidney disease stage V. Etiology is diabetic kidney disease and nephrosclerosis. His dyspnea is improved. Denies chest pain. He admits to good urine output. Denies vomiting or diarrhea. Hemodynamically stable. Vital signs are stable. General: The patient appeared well nourished and normally developed. HEENT: Head exam is unremarkable. Neck is without jugular venous distension. LUNGS: Lungs are clear to auscultation and percussion. Breath sounds decreased. HEART: Rate and Rhythm are regular. First and second heart sounds normal. No murmurs, rubs or gallops. ABDOMEN: Abdominal exam reveals normal bowel sounds. Non-tender and non- distended. No evidence of peritonitis. EXTREMITITES: 1+ edema. Objective - Vital Signs Vital signs: Vital Signs Temp 98.4 F 04/13/17 07:00 Pulse 80 04/13/17 08:14 Resp 20 04/13/17 07:00 BP 137/74 04/13/17 07:00 Pulse Ox 99 04/13/17 07:00 Intake & Output 04/12/17 04/13/17 04/13/17 18:59 06:59 18:59 Intake Total 1250 Output Total 250 3850 300 Balance -250 -2600 -300 Intake: Oral 1250 Output: Urine 250 3850 300 Other: Voiding Method Toilet Urinal # Voids 5 - Labs CBC & Chem 7: 04/13/17 10:23 04/12/17 09:05 Labs: Abnormal Lab Results - Last 24 Hours (Table) 04/12/17 04/12/17 04/12/17 Range/Units 11:54 17:26 20:46 Hgb (13.0-17.5) gm/dL POC Glucose (mg/dL) 70 L 126 H 131 H (75-99) mg/dL 04/13/17 04/13/17 04/13/17 Range/Units 05:56 06:16 10:23 Hgb 12.8 L (13.0-17.5) gm/dL POC Glucose (mg/dL) 43 L 52 L (75-99) mg/dL Assessment and Plan Plan: Assessment: #1. Chronic kidney disease stage V secondary to diabetic kidney disease and nephrosclerosis. #2. Volume overload. Improving. #3. Insulin-dependent diabetes mellitus. #4. Hypertension with chronic kidney disease. Controlled. Plan: Continue Lasix 40 mg IV twice daily. Check phosphorus level. Patient was strongly advised that he will need to get educated about dialysis as an outpatient and follow-up with vascular surgery for long-term dialysis access as soon as possible upon discharge. No urgent need for hemodialysis at this time.
[2017-04-13 11:43] LABS: Glucose,Whole Blood 50 mg/dL (75-99)
[2017-04-13 12:11] LABS: Glucose,Whole Blood 75 mg/dL (75-99)
--- NOTE | 2017-04-13 12:45 | P.PN ---
Subjective Principal diagnosis: COPD exacerbation This patient is resting comfortably in bed. The patient has no significant respiratory distress. He was hospitalized for an acute COPD exacerbation with secondary bronchitis and questionable aspiration pneumonia. However, the patient has multiple other medical positive comorbidities most significant of which is chronic renal failure and the patient declined dialysis in the past, he is diabetic and has hypertension and has obstructive sleep apnea with CPAP therapy and has diabetic neuropathy and he is obese. I'm seeing this patient in follow-up. He has no specific complaints. I reviewed the chest x-ray there is some mild interstitial prominence without any other acute abnormalities. He is free of any chest pain. The patient is seen again today 04/13/2017 in follow-up on the regular medical floor. He is awake and alert in no acute distress. He denies any worsening shortness of breath, cough or congestion. He is maintaining good O2 saturations in the 90s on room air. His renal function continues to worsen current creatinine 5.53. He remains on Lasix 40 mg IV twice a day. Nephrology is recommending outpatient follow-up in the vascular surgery for long-term dialysis access. Objective - Vital Signs Vital signs: Vital Signs Temp 98.4 F 04/13/17 07:00 Pulse 80 04/13/17 08:14 Resp 20 04/13/17 07:00 BP 137/74 04/13/17 07:00 Pulse Ox 99 04/13/17 07:00 Intake & Output 04/12/17 04/13/17 04/13/17 18:59 06:59 18:59 Intake Total 1250 Output Total 250 3850 300 Balance -250 -2600 -300 Intake: Oral 1250 Output: Urine 250 3850 300 Other: Voiding Method Toilet Urinal # Voids 5 - Exam The patient appeared well nourished and normally developed. Vital signs as documented. Head exam is unremarkable. No scleral icterus or corneal arcus noted. Neck is without jugular venous distension, thyromegaly, or carotid bruits. Carotid upstrokes are brisk bilaterally. Lungs are clear to auscultation and percussion. Cardiac exam reveals the PMI to be normally sized and situated. Rhythm is regular. First and second heart sounds normal. No murmurs, rubs or gallops. Abdominal exam reveals normal bowel sounds, no masses , no organomegaly and no aortic enlargement. Extremities are nonedematous and both femoral and pedal pulses are normal. - Labs CBC & Chem 7: 04/13/17 10:23 04/13/17 10:23 Labs: Abnormal Lab Results - Last 24 Hours (Table) 04/12/17 04/12/17 04/13/17 Range/Units 17:26 20:46 05:56 Hgb (13.0-17.5) gm/dL BUN (9-20) mg/dL Creatinine (0.66-1.25) mg/dL Glucose (74-99) mg/dL POC Glucose (mg/dL) 126 H 131 H 43 L (75-99) mg/dL Calcium (8.4-10.2) mg/dL Phosphorus (2.5-4.5) mg/dL 04/13/17 04/13/17 04/13/17 Range/Units 06:16 10:23 10:23 Hgb 12.8 L (13.0-17.5) gm/dL BUN 63 H (9-20) mg/dL Creatinine 5.53 H* (0.66-1.25) mg/dL Glucose 100 H (74-99) mg/dL POC Glucose (mg/dL) 52 L (75-99) mg/dL Calcium 8.3 L (8.4-10.2) mg/dL Phosphorus (2.5-4.5) mg/dL 04/13/17 04/13/17 Range/Units 10:23 11:42 Hgb (13.0-17.5) gm/dL BUN (9-20) mg/dL Creatinine (0.66-1.25) mg/dL Glucose (74-99) mg/dL POC Glucose (mg/dL) 50 L (75-99) mg/dL Calcium (8.4-10.2) mg/dL Phosphorus 5.3 H (2.5-4.5) mg/dL Assessment and Plan Plan: Assessment 1 shortness of breath, multifactorial. I think the patient has also a component of fluid overload with interstitial edema. Atypical pneumonia is felt to be less likely. COPD exacerbation is felt to be less likely. He is currently resting comfortably in bed 2 obesity 3 diabetes mellitus 4 diabetic peripheral neuropathy 5 diabetic nephropathy and the patient has advanced renal failure, declined dialysis 6 hypertension 7 obstructive sleep apnea. 8 fibromyalgia 9 obesity Plan: The patient was seen and evaluated by Dr. Cortez. We'll continue with his current medications. Continue to diurese the patient. He has no pulmonary complaints. We'll see the patient on as-needed basis.
[2017-04-13 13:23] VITALS: PULSE 80
[2017-04-14] MEDS ORDERED: INSULIN GLARGINE 100 UNIT/ML 10 ML VIAL SQ SCH (09:00)
--- NOTE | 2017-04-14 12:16 | DS ---
DATE OF ADMISSION: 04/09/2017 DATE OF DISCHARGE: 04/13/2017 FINAL DIAGNOSES: 1. Chronic obstructive pulmonary disease acute exacerbation with acute purulent tracheobronchitis possible bronchopneumonia or aspiration pneumonia. 2. Acute on chronic kidney disease stage IV. 3. Elevated CK possible acute rhabdomyolysis. 4. Elevated d-dimer with no evidence of pulmonary embolus. 5. Diabetes mellitus type 2. 6. Fibromyalgia. 7. History of hypertension. 8. History of degenerative joint disease. 9. History of sleep apnea on CPAP. 10. Diabetic neuropathy. 11. Glaucoma history. 12. History of Methicillin-resistant Staphylococcus aureus. 13. Obesity with body mass index of 43.8. DISCHARGE DISPOSITION: The patient will be discharged in stable condition with guarded prognosis. Total time taken 35 minutes. HISTORY OF PRESENT ILLNESS: This 46-year-old gentleman with a past medical history of multiple medical problems was admitted with acute on chronic renal failure and chronic obstructive pulmonary disease, acute exacerbation. The patient was treated in conjunction with Dr. Cortez. The patient was given antibiotics, bronchodilators, and improved significantly. The creatinine stabilized around 5.53 at this time. On exam, vitals are stable. CARDIOVASCULAR: S1, S2 normal. RESPIRATORY few rhonchi, copd. DISCHARGE ADVICE: 1. Diet cardiac. 2. Activity limited until follow-up. 3. Follow-up with Dr. Vazquez in 2 to [address] Medeiros continued follow-up. Medications will be: 1. ProAir HFA 2 puffs q.i.d. p.r.n. 2. Norvasc 10 mg p.o. daily. 3. Coreg 12.5 mg p.o. b.i.d. 4. Vitamin D2 50,000 p.o. Wednesday. 5. Lasix 40 mg p.o. b.i.d. 6. Jenners 7.5 t.i.d. p.r.n. 7. Lantus 40 units subcu q.a.m. 8. Apidra 5 units subcu b.i.d. 9. Apidra 10 units a.c., hold if less than 120. 10. Levaquin 750 p.o. every 48 hours for 5 more doses. 11. Prednisone acetate eyedrops. 12. Accu-Cheks before meals and at bedtime. MTDD
== END 2017-04-13 15:32 | disposition home or self-care (01) | DRG 190 ==
LOC: EC 08:48 → OBSVTOIN 14:11 → 4MS4W 14:11
PROVIDERS: ADMIT Hospitalist; ATTEND Hospitalist
DX: J44.0 Chronic obstructive pulmonary disease with (acute) lower respiratory infection (principal); N17.0 Acute kidney failure with tubular necrosis; J69.0 Pneumonitis due to inhalation of food and vomit; J18.0 Bronchopneumonia, unspecified organism; M62.82 Rhabdomyolysis; N18.5 Chronic kidney disease, stage 5; N18.4 Chronic kidney disease, stage 4 (severe); E11.22 Type 2 diabetes mellitus with diabetic chronic kidney disease; E11.42 Type 2 diabetes mellitus with diabetic polyneuropathy; E66.9 Obesity, unspecified; E87.5 Hyperkalemia; E87.70 Fluid overload, unspecified; G47.33 Obstructive sleep apnea (adult) (pediatric); H40.9 Unspecified glaucoma; J44.1 Chronic obstructive pulmonary disease with (acute) exacerbation; M79.7 Fibromyalgia; G89.29 Other chronic pain; M51.26 Other intervertebral disc displacement, lumbar region; M54.5 Low back pain; M25.511 Pain in right shoulder; G47.30 Sleep apnea, unspecified; G56.00 Carpal tunnel syndrome, unspecified upper limb; I12.9 Hypertensive chronic kidney disease with stage 1 through stage 4 chronic kidney disease, or unspecified chronic kidney disease; Z68.41 Body mass index [BMI] 40.0-44.9, adult; Z79.4 Long term (current) use of insulin; Z79.899 Other long term (current) drug therapy; Z86.14 Personal history of Methicillin resistant Staphylococcus aureus infection; Z87.01 Personal history of pneumonia (recurrent); Z82.49 Family history of ischemic heart disease and other diseases of the circulatory system
CPT/HCPCS: 36415; 71020; 78580; 80048; 80053; 81001; 82550; 82553; 83036; 83735; 83880; 84100; 84484; 85025; 85379; 85610; 85730; 93005; 94640

== ENCOUNTER 2017-06-16 03:54 | Observation (INO) | payer OTHER ==
[2017-06-16 04:53] LABS: Basophils % (A) 0 %; CH 28.6; CHCM 32.6; Eosinophils # (A) 0.1 k/uL (0-0.7); Eosinophils % (A) 2 %; HCT 39.1 % (39.0-53.0); HDW 2.88; HGB 13.1 gm/dL (13.0-17.5); Luc # (Auto) 0.11; Luc % (Auto) 1; Lymphocytes # (A) 1.7 k/uL (1.0-4.8); Lymphocytes % (A) 19 %; MCH 29.4 pg (25.0-35.0); MCHC 33.4 g/dL (31.0-37.0); Mean Platelet Volume 7.9; Monocytes # (A) 0.4 k/uL (0-1.0); Monocytes % (A) 4 %; Neutrophils # (A) 6.6 k/uL (1.3-7.7); Neutrophils % (A) 74 %; RBC 4.44 m/uL (4.30-5.90); RDW 13.2 % (11.5-15.5); WBC 8.9 k/uL (3.8-10.6); WBC (Perox) 8.77
[2017-06-16 05:00] LABS: Calcium 8.1 mg/dL (8.4-10.2); Potassium 4.1 mmol/L (3.5-5.1); Total Bilirubin 0.5 mg/dL (0.2-1.3); Total Protein 5.9 g/dL (6.3-8.2)
[2017-06-16 05:01] LABS: INR 1.1 (<1.2)
[2017-06-16 05:02] LABS: Prothrombin Time 11.1 sec (9.0-12.0)
[2017-06-16 05:28] LABS: Creatine Kinase MB 4.3 ng/mL (0.0-2.4); Troponin I 0.053 ng/mL (0.000-0.034)
[2017-06-16 05:39] LABS: Appearance,Urine Clear (Clear); Bacteria,Urine Rare /hpf; Bilirubin,Urine Negative (Negative); Glucose,Urine (UA) Negative (Negative); Ketones,Urine Negative (Negative); Leukocyte Esterase,Urine Negative (Negative); Mucus,Urine Rare /hpf; Nitrite,Urine Negative (Negative); PH, Urine 6.5 (5.0-8.0); Particle Count 482; Protein,Urine 3+ (Negative); RBC,Urine 5 /hpf (0-5); Specific Gravity,Urine 1.006 (1.001-1.035); Squamous Epithelial Cell,Urine <1 /hpf (0-4); UA Billing (MACRO vs. MICRO) MICRO; Urobilinogen,Urine <2.0 mg/dL (<2.0); WBC,Urine 2 /hpf (0-5)
--- NOTE | 2017-06-16 05:49 | XR ---
EXAM: XR Chest, 1 View CLINICAL HISTORY: Reason: dyspnea TECHNIQUE: Frontal view of the chest. COMPARISON: 04/12/2017 FINDINGS: Lungs: Right basilar atelectasis and/or infiltrates are noted. Pleural space: Unremarkable. No pneumothorax. Heart: Unremarkable. No cardiomegaly. Mediastinum: Unremarkable. Bones/joints: Unremarkable. Vasculature: Worsening interstitial pattern is seen, which may represent pulmonary venous congestion/edema versus interstitial pneumonitis. IMPRESSION: Worsening interstitial pattern, which may represent pulmonary venous congestion/edema versus interstitial pneumonitis. Right basilar atelectasis and/or infiltrates, more conspicuous on this study than the prior, which be secondary to the above-mentioned findings.
[2017-06-16] MEDS ORDERED: NITROGLYCERIN OINT 1 INCH/GM PACKET TOPICAL STA (06:08)
--- NOTE | 2017-06-16 06:47 | ED ---
SOB HPI - General Chief Complaint: Shortness of Breath Stated Complaint: dizziness Time Seen by Provider: 06/16/17 04:05 Source: patient Mode of arrival: ambulatory Limitations: no limitations - History of Present Illness Initial Comments: 's patient is a 46-year-old man with history of some underlying COPD who presents with complaint that he is feeling more short of breath than usual. Patient states that this came on probably about 2 hours ago. Patient states he was in bed at the time. He has not been able to go to sleep because his breathing feels worse than usual. Patient denies fever or chills, productive cough, chest pain, leg pain or swelling. Patient states she is also feeling somewhat lightheaded like she may pass out. MD Complaint: shortness of breath -: hour(s) Consistency: constant Improves With: upright position Worsens With: lying flat Known History Of: COPD Associated Symptoms: denies other symptoms Treatments Prior to Arrival: none - Related Data Home Medications Medication Instructions Recorded Confirmed HYDROcodone/APAP 7.5-325MG [Bruce 1 tab PO TID PRN 07/19/14 04/09/17 7.5-325] Carvedilol [Coreg*] 12.5 mg PO BID 04/09/17 04/09/17 Ergocalciferol [Vitamin D2 50,000 unit PO MCCARTHY 04/09/17 04/09/17 (DRISDOL)] prednisoLONE ACETATE 1% OPHTH 1 drops RIGHT EYE BID 04/09/17 04/09/17 [Pred Forte 1%] Previous Rx's Medication Instructions Recorded amLODIPine [Norvasc] 10 mg PO DAILY #30 tab 05/01/15 Albuterol Sulfate [Proair Hfa] 2 puff INHALATION QID #1 inhaler 04/13/17 Furosemide [Lasix] 40 mg PO BID #20 tablet 04/13/17 Insulin Glargine [Lantus] 40 unit SQ QAM #0 04/13/17 Insulin Glulisine [Apidra] 5 units SQ AC-BRKFST #0 04/13/17 Insulin Glulisine [Apidra] 10 units SQ BID #0 04/13/17 Levofloxacin [Levaquin] 750 mg PO Q48H #5 tab 04/13/17 Allergies Allergy/AdvReac Type Severity Reaction Status Date / Time peanut Allergy Anaphylaxis Verified 06/16/17 04:06 Review of Systems ROS Statement: Those systems with pertinent positive or pertinent negative responses have been documented in the HPI. ROS Other: All systems not noted in ROS Statement are negative. Constitutional: Denies: fever, chills Respiratory: Reports: dyspnea. Denies: cough, wheezes, hemoptysis Cardiovascular: Reports: orthopnea. Denies: chest pain, palpitations, edema, syncope Gastrointestinal: Denies: abdominal pain, vomiting, diarrhea, melena, hematochezia Genitourinary: Denies: dysuria, hematuria Musculoskeletal: Denies: back pain Skin: Denies: rash Neurological: Denies: headache, weakness, numbness Psychiatric: Reports: anxiety Past Medical History Past Medical History: Diabetes Mellitus, Eye Disorder, Fibromyalgia, Hypertension, Pneumonia, Renal Disease, Sleep Apnea/CPAP/BIPAP Additional Past Medical History / Comment(s): IDDM type II, DKA, neuropathy bilateral feet, obesity, chronic renal failure stage IV secondary to DM, normocytic anemia, lower back pain, herniated lumbar disk, fibromylagia, glaucoma R eye, carpal tunnel syndrome bilaterally, bronchitis, PAULA with CPAP, folliculitis chest, abscesses to back and R groin with I&Ds. History of Any Multi-Drug Resistant Organisms: MRSA Date of last positivie culture/infection: 2012 MDRO Source:: lower back Past Surgical History: No Surgical Hx Reported, Back Surgery Additional Past Surgical History / Comment(s): Incision and drainage back and R groin r/t abcesses removed, bilateral eye surgery for retinal repair. Past Anesthesia/Blood Transfusion Reactions: Postoperative Nausea & Vomiting ( PONV) Past Psychological History: No Psychological Hx Reported Smoking Status: Never smoker Past Alcohol Use History: None Reported Past Drug Use History: None Reported - Past Family History Father Family Medical History: Diabetes Mellitus, Hypertension Additional Family Medical History / Comment(s): Bladder cancer in father. Father at the age of 78 from bladder cancer complications. Mother Additional Family Medical History / Comment(s): Mother of brain aneurysm General Exam Limitations: no limitations General appearance: alert, obese Head exam: Present: atraumatic, normocephalic Eye exam: Present: normal appearance. Absent: scleral icterus, conjunctival injection Neck exam: Present: normal inspection Respiratory exam: Present: normal lung sounds bilaterally. Absent: respiratory distress, wheezes, rales, rhonchi, stridor Cardiovascular Exam: Present: regular rate, normal rhythm, normal heart sounds. Absent: systolic murmur, diastolic murmur, rubs, gallop GI/Abdominal exam: Present: soft. Absent: distended, tenderness, guarding, rebound, mass Extremities exam: Present: normal inspection, normal capillary refill. Absent: pedal edema, calf tenderness Back exam: Present: normal inspection. Absent: CVA tenderness (R), CVA tenderness (L) Neurological exam: Present: alert Skin exam: Present: warm, dry, intact, normal color. Absent: rash Course Vital Signs 06/16/17 06/16/17 06/16/17 03:56 04:20 05:48 Temperature 100.3 F H 98.9 F 98.2 F Pulse Rate 99 83 92 Respiratory 24 20 22 Rate Blood Pressure 194/107 171/80 173/79 O2 Sat by Pulse 66 L 91 L 97 Oximetry 06/16/17 06:41 Temperature 98.8 F Pulse Rate 88 Respiratory 22 Rate Blood Pressure 161/73 O2 Sat by Pulse 96 Oximetry Medical Decision Making - Lab Data Result diagrams: 06/16/17 04:15 06/16/17 04:15 Lab Results 06/16/17 06/16/17 06/16/17 Range/Units 04:15 04:15 04:15 WBC 8.9 (3.8-10.6) k/uL RBC 4.44 (4.30-5.90) m/uL Hgb 13.1 (13.0-17.5) gm/dL Hct 39.1 (39.0-53.0) % MCV 88.0 (80.0-100.0) fL MCH 29.4 (25.0-35.0) pg MCHC 33.4 (31.0-37.0) g/dL RDW 13.2 (11.5-15.5) % Plt Count 186 (150-450) k/uL Neutrophils % 74 % Lymphocytes % 19 % Monocytes % 4 % Eosinophils % 2 % Basophils % 0 % Neutrophils # 6.6 (1.3-7.7) k/uL Lymphocytes # 1.7 (1.0-4.8) k/uL Monocytes # 0.4 (0-1.0) k/uL Eosinophils # 0.1 (0-0.7) k/uL Basophils # 0.0 (0-0.2) k/uL PT (9.0-12.0) sec INR (<1.2) APTT (22.0-30.0) sec D-Dimer (<0.60) mg/L FEU Sodium 144 (137-145) mmol/L Potassium 4.1 (3.5-5.1) mmol/L Chloride 107 (98-107) mmol/L Carbon Dioxide 28 (22-30) mmol/L Anion Gap 9 mmol/L BUN 49 H (9-20) mg/dL Creatinine 5.59 H* (0.66-1.25) mg/dL Est GFR (MDRD) Af Amer 13 (>60 ml/min/1.73 sqM) Est GFR (MDRD) Non-Af 11 (>60 ml/min/1.73 sqM) Glucose 85 (74-99) mg/dL Calcium 8.1 L (8.4-10.2) mg/dL Total Bilirubin 0.5 (0.2-1.3) mg/dL AST 20 (17-59) U/L ALT 27 (21-72) U/L Alkaline Phosphatase 93 (38-126) U/L Total Creatine Kinase 713 H (55-170) U/L CK-MB (CK-2) 4.3 H* (0.0-2.4) ng/mL CK-MB (CK-2) Rel Index 0.6 Troponin I 0.053 H* (0.000-0.034) ng/mL NT-Pro-B Natriuret Pep pg/mL Total Protein 5.9 L (6.3-8.2) g/dL Albumin 3.4 L (3.5-5.0) g/dL Urine Color Urine Appearance (Clear) Urine pH (5.0-8.0) Ur Specific Elk (1.001-1.035) Urine Protein (Negative) Urine Glucose (UA) (Negative) Urine Ketones (Negative) Urine Blood (Negative) Urine Nitrite (Negative) Urine Bilirubin (Negative) Urine Urobilinogen (<2.0) mg/dL Ur Leukocyte Esterase (Negative) Urine RBC (0-5) /hpf Urine WBC (0-5) /hpf Ur Squamous Epith Cells (0-4) /hpf Urine Bacteria (None) /hpf Urine Mucus (None) /hpf Urine Opiates Screen (NotDetected) Ur Oxycodone Screen (NotDetected) Urine Methadone Screen (NotDetected) Ur Propoxyphene Screen (NotDetected) Ur Barbiturates Screen (NotDetected) U Tricyclic Antidepress (NotDetected) Ur Phencyclidine Scrn (NotDetected) Ur Amphetamines Screen (NotDetected) U Methamphetamines Scrn (NotDetected) U Benzodiazepines Scrn (NotDetected) Urine Cocaine Screen (NotDetected) U Marijuana (THC) Screen (NotDetected) 06/16/17 06/16/17 06/16/17 Range/Units 04:15 04:15 05:17 WBC (3.8-10.6) k/uL RBC (4.30-5.90) m/uL Hgb (13.0-17.5) gm/dL Hct (39.0-53.0) % MCV (80.0-100.0) fL MCH (25.0-35.0) pg MCHC (31.0-37.0) g/dL RDW (11.5-15.5) % Plt Count (150-450) k/uL Neutrophils % % Lymphocytes % % Monocytes % % Eosinophils % % Basophils % % Neutrophils # (1.3-7.7) k/uL Lymphocytes # (1.0-4.8) k/uL Monocytes # (0-1.0) k/uL Eosinophils # (0-0.7) k/uL Basophils # (0-0.2) k/uL PT 11.1 (9.0-12.0) sec INR 1.1 (<1.2) APTT 27.0 (22.0-30.0) sec D-Dimer 3.47 H (<0.60) mg/L FEU Sodium (137-145) mmol/L Potassium (3.5-5.1) mmol/L Chloride (98-107) mmol/L Carbon Dioxide (22-30) mmol/L Anion Gap mmol/L BUN (9-20) mg/dL Creatinine (0.66-1.25) mg/dL Est GFR (MDRD) Af Amer (>60 ml/min/1.73 sqM) Est GFR (MDRD) Non-Af (>60 ml/min/1.73 sqM) Glucose (74-99) mg/dL Calcium (8.4-10.2) mg/dL Total Bilirubin (0.2-1.3) mg/dL AST (17-59) U/L ALT (21-72) U/L Alkaline Phosphatase (38-126) U/L Total Creatine Kinase (55-170) U/L CK-MB (CK-2) (0.0-2.4) ng/mL CK-MB (CK-2) Rel Index Troponin I (0.000-0.034) ng/mL NT-Pro-B Natriuret Pep 621 pg/mL Total Protein (6.3-8.2) g/dL Albumin (3.5-5.0) g/dL Urine Color Urine Appearance (Clear) Urine pH (5.0-8.0) Ur Specific Elk (1.001-1.035) Urine Protein (Negative) Urine Glucose (UA) (Negative) Urine Ketones (Negative) Urine Blood (Negative) Urine Nitrite (Negative) Urine Bilirubin (Negative) Urine Urobilinogen (<2.0) mg/dL Ur Leukocyte Esterase (Negative) Urine RBC (0-5) /hpf Urine WBC (0-5) /hpf Ur Squamous Epith Cells (0-4) /hpf Urine Bacteria (None) /hpf Urine Mucus (None) /hpf Urine Opiates Screen Not Detected (NotDetected) Ur Oxycodone Screen Not Detected (NotDetected) Urine Methadone Screen Not Detected (NotDetected) Ur Propoxyphene Screen Not Detected (NotDetected) Ur Barbiturates Screen Not Detected (NotDetected) U Tricyclic Antidepress Not Detected (NotDetected) Ur Phencyclidine Scrn Not Detected (NotDetected) Ur Amphetamines Screen Not Detected (NotDetected) U Methamphetamines Scrn Not Detected (NotDetected) U Benzodiazepines Scrn Not Detected (NotDetected) Urine Cocaine Screen Not Detected (NotDetected) U Marijuana (THC) Screen Not Detected (NotDetected) 06/16/17 Range/Units 05:17 WBC (3.8-10.6) k/uL RBC (4.30-5.90) m/uL Hgb (13.0-17.5) gm/dL Hct (39.0-53.0) % MCV (80.0-100.0) fL MCH (25.0-35.0) pg MCHC (31.0-37.0) g/dL RDW (11.5-15.5) % Plt Count (150-450) k/uL Neutrophils % % Lymphocytes % % Monocytes % % Eosinophils % % Basophils % % Neutrophils # (1.3-7.7) k/uL Lymphocytes # (1.0-4.8) k/uL Monocytes # (0-1.0) k/uL Eosinophils # (0-0.7) k/uL Basophils # (0-0.2) k/uL PT (9.0-12.0) sec INR (<1.2) APTT (22.0-30.0) sec D-Dimer (<0.60) mg/L FEU Sodium (137-145) mmol/L Potassium (3.5-5.1) mmol/L Chloride (98-107) mmol/L Carbon Dioxide (22-30) mmol/L Anion Gap mmol/L BUN (9-20) mg/dL Creatinine (0.66-1.25) mg/dL Est GFR (MDRD) Af Amer (>60 ml/min/1.73 sqM) Est GFR (MDRD) Non-Af (>60 ml/min/1.73 sqM) Glucose (74-99) mg/dL Calcium (8.4-10.2) mg/dL Total Bilirubin (0.2-1.3) mg/dL AST (17-59) U/L ALT (21-72) U/L Alkaline Phosphatase (38-126) U/L Total Creatine Kinase (55-170) U/L CK-MB (CK-2) (0.0-2.4) ng/mL CK-MB (CK-2) Rel Index Troponin I (0.000-0.034) ng/mL NT-Pro-B Natriuret Pep pg/mL Total Protein (6.3-8.2) g/dL Albumin (3.5-5.0) g/dL Urine Color Light Yellow Urine Appearance Clear (Clear) Urine pH 6.5 (5.0-8.0) Ur Specific Elk 1.006 (1.001-1.035) Urine Protein 3+ H (Negative) Urine Glucose (UA) Negative (Negative) Urine Ketones Negative (Negative) Urine Blood Moderate H (Negative) Urine Nitrite Negative (Negative) Urine Bilirubin Negative (Negative) Urine Urobilinogen <2.0 (<2.0) mg/dL Ur Leukocyte Esterase Negative (Negative) Urine RBC 5 (0-5) /hpf Urine WBC 2 (0-5) /hpf Ur Squamous Epith Cells <1 (0-4) /hpf Urine Bacteria Rare H (None) /hpf Urine Mucus Rare H (None) /hpf Urine Opiates Screen (NotDetected) Ur Oxycodone Screen (NotDetected) Urine Methadone Screen (NotDetected) Ur Propoxyphene Screen (NotDetected) Ur Barbiturates Screen (NotDetected) U Tricyclic Antidepress (NotDetected) Ur Phencyclidine Scrn (NotDetected) Ur Amphetamines Screen (NotDetected) U Methamphetamines Scrn (NotDetected) U Benzodiazepines Scrn (NotDetected) Urine Cocaine Screen (NotDetected) U Marijuana (THC) Screen (NotDetected) - EKG Data -: EKG Interpreted by Id EKG shows normal: sinus rhythm (Rate 89 bpm), axis (Normal), intervals (Normal) , QRS complexes (Normal), ST-T waves (T inversions in lateral leads 1 and aVL, as well as 6, concerning for lateral ischemia.) Rate: normal Interpretation: other (EKG similar to comparison from 04/09/17) Disposition Clinical Impression: Congestive heart failure, Elevated d-dimer, Chronic renal failure, Dyspnea Disposition: ADMITTED IP TO THIS [facility] Condition: Poor Referrals: Shailesh Vazquez MD [Primary Care Provider] - 1-2 days
[2017-06-16] MEDS ORDERED: ENOXAPARIN 150 MG/ML SYRINGE SQ STA (06:57)
[2017-06-16] MEDS ORDERED: FUROSEMIDE 10 MG/ML 4 ML VIAL IV SCH (07:00)
[2017-06-16] MEDS ORDERED: INSULIN GLARGINE 100 UNIT/ML 10 ML VIAL SQ SCH (09:00)
[2017-06-16] MEDS: ALBUTEROL NEBULIZED 2.5 MG/3 ML INHALATION SCH ×4 (09:03→20:27)
[2017-06-16] MEDS: HYDROcodone/APAP 7.5-325MG 1 EACH TAB PO PRN ×3 (09:07→22:25)
--- NOTE | 2017-06-16 09:08 | NM ---
EXAMINATION TYPE: NM pul vent and perfuse DATE OF EXAM: 06/16/2017 COMPARISON: Chest x-ray earlier today HISTORY: Dyspnea. TECHNIQUE: Utilizing inhalation of 71.2 mCi Tc 99m DTPA aerosol and intravenous injection of 5.5 mCi of Tc 99m MAA, ventilation and perfusion images are acquired post injection in multiple projections. FINDINGS: There are no VQ mismatches. IMPRESSION: This examination is low probability for pulmonary embolus.
--- NOTE | 2017-06-16 09:41 | P.NPCON ---
History of Present Illness - Reason for Consult acute renal failure, chronic renal failure - History of Present Illness Reason for consultation: Chronic kidney disease History of present illness: Patient is a 46-year-old male seen in renal consultation for chronic kidney disease. Patient has chronic kidney disease stage V. His creatinine January 2016 was near 3 and was elevated at 4.8 in March of this year. It has been persistently elevated and is 5.59 today. Last and the patient was admitted I did discuss the importance of following up as an outpatient and to prepare for hemodialysis. However he has not been seen as an outpatient. Patient is currently refusing renal replacement therapy and feels his kidneys are working fine as he has no problem urinating. Patient presented to the hospital with dyspnea that began suddenly last night while he was sitting. Patient felt he was having a panic attack. His chest x-ray was suggestive of fluid overload. He is currently maintained on IV Lasix 40 mg every 12 hours. He admits to good urine output. No hematuria or dysuria. He does have long-standing history of insulin-dependent diabetes mellitus. Denies use of NSAIDs. Denies chest pain. Vital signs are stable. General: The patient appeared well nourished and normally developed. HEENT: Head exam is unremarkable. Neck is without jugular venous distension. LUNGS: Lungs are clear to auscultation and percussion. Breath sounds decreased. HEART: Rate and Rhythm are regular. First and second heart sounds normal. No murmurs, rubs or gallops. ABDOMEN: Abdominal exam reveals normal bowel sounds. Non-tender and non- distended. No evidence of peritonitis. EXTREMITITES: 1+ edema. Past Medical History Past Medical History: Diabetes Mellitus, Eye Disorder, Fibromyalgia, Hypertension, Pneumonia, Renal Disease, Sleep Apnea/CPAP/BIPAP Additional Past Medical History / Comment(s): IDDM type II, DKA, neuropathy bilateral feet, obesity, chronic renal failure stage IV secondary to DM, normocytic anemia, lower back pain, herniated lumbar disk, fibromylagia, glaucoma R eye, carpal tunnel syndrome bilaterally, bronchitis, PAULA with CPAP, folliculitis chest, abscesses to back and R groin with I&Ds. History of Any Multi-Drug Resistant Organisms: MRSA Date of last positivie culture/infection: 2012 MDRO Source:: lower back Past Surgical History: No Surgical Hx Reported, Back Surgery Additional Past Surgical History / Comment(s): Incision and drainage back and R groin r/t abcesses removed, bilateral eye surgery for retinal repair. Past Anesthesia/Blood Transfusion Reactions: Postoperative Nausea & Vomiting ( PONV) Past Psychological History: No Psychological Hx Reported Smoking Status: Never smoker Past Alcohol Use History: None Reported Past Drug Use History: None Reported - Past Family History Father Family Medical History: Diabetes Mellitus, Hypertension Additional Family Medical History / Comment(s): Bladder cancer in father. Father at the age of 78 from bladder cancer complications. Mother Additional Family Medical History / Comment(s): Mother of brain aneurysm Medications and Allergies Home Medications Medication Instructions Recorded Confirmed Type HYDROcodone/APAP 7.5-325MG [[place] 1 tab PO TID PRN 07/19/14 06/16/17 History 7.5-325] Carvedilol [Coreg*] 12.5 mg PO BID 04/09/17 06/16/17 History Ergocalciferol [Vitamin D2 50,000 unit PO TUFR 04/09/17 06/16/17 History (DRISDOL)] Albuterol Inhaler [Ventolin Hfa 1 - 2 puff INHALATION RT-Q6H PRN 06/16/17 History Inhaler] Furosemide [Lasix] 40 mg PO DAILY 06/16/17 06/16/17 History Insulin Glargine [Lantus] 50 unit SQ DAILY 06/16/17 06/16/17 History Allergies Allergy/AdvReac Type Severity Reaction Status Date / Time peanut Allergy Anaphylaxis Verified 06/16/17 07:34 Physical Exam Vitals: Vital Signs Temp Pulse Resp BP Pulse Ox 06/16/17 09:10 98.2 F 89 18 171/89 100 06/16/17 07:10 84 18 162/78 92 L 06/16/17 06:41 98.8 F 88 22 161/73 96 06/16/17 05:48 98.2 F 92 22 173/79 97 06/16/17 04:20 98.9 F 83 20 171/80 91 L 06/16/17 03:56 100.3 F H 99 24 194/107 66 L Intake and Output 06/15/17 06/16/17 06/16/17 22:59 06:59 14:59 Other: Weight 141.521 kg Results - Lab Results Most recent lab results Calcium 8.1 mg/dL (8.4-10.2) L 06/16/17 04:15 06/16/17 04:15 06/16/17 04:15 Assessment and Plan Plan: Assessment: #1. Chronic kidney disease stage V secondary to diabetic kidney disease. Last admission it was stressed the importance of following up as an outpatient but he never did. #2. Volume overload. #3. Insulin-dependent diabetes mellitus. #4. Hypertension with chronic kidney disease. Uncontrolled. Partially volume sensitive. Plan: I will increase Lasix to 80 mg IV every 12 hours. I will put him on a 1500 mL fluid restriction. Follow-up echocardiogram results. Home antihypertensives have been resumed. I again discussed with him the need to start renal placement therapy. He is still not ready and needs time to think about it. Thank you for the consultation. I will continue to follow the patient with you during his hospital stay.
[2017-06-16] MEDS: amLODIPine 10 MG TAB PO SCH (10:02)
[2017-06-16] MEDS: CARVEDILOL 12.5 MG TAB PO SCH ×2 (10:02→18:30)
[2017-06-16] MEDS: FUROSEMIDE 10 MG/ML 4 ML VIAL IV SCH ×2 (10:02→20:39)
[2017-06-16] MEDS: INSULIN LISPRO (humaLOG) 300 UNIT/3 ML VIAL SQ SCH ×2 (10:08→17:34)
[2017-06-16 10:41] VITALS: BMI 40.0
--- NOTE | 2017-06-16 10:52 | ECHOF ---
Referral Reason:Heart Failure MEASUREMENTS -------- HEIGHT: 182.9 cm WEIGHT: 141.5 kg BP: RVIDd: 3.0 cm (< 3.3) IVSd: 1.5 cm (0.6 - 1.1) LVIDd: 4.2 cm (3.9 - 5.3) LVPWd: 1.3 cm (0.6 - 1.1) IVSs: 1.6 cm LVIDs: 3.9 cm LVPWs: 1.7 cm LAESV Index (A-L): 22.80 ml/m Ao Diam: 4.1 cm (2.0 - 3.7) AV Cusp: 1.6 cm (1.5 - 2.6) LA Diam: 4.0 cm (2.7 - 3.8) MV EXCURSION: 20.304 mm (> 18.000) MV EF SLOPE: 77 mm/s (70 - 150) EPSS: 0.3 cm MV E Umair: 0.77 m/s MV DecT: 200 ms MV A Umair: 0.78 m/s MV E/A Ratio: 0.98 RAP: 5.00 mmHg RVSP: 10.32 mmHg FINDINGS -------- Sinus rhythm. This was a technically adequate study. Morbid Obesity The left ventricular size is normal. There is moderate concentric left ventricular hypertrophy. Overall left ventricular systolic function is normal with, an EF between 55 - 60 %. The right ventricle is normal in size. Normal LA size by volume 22+/-6 ml/m2. The right atrial size is normal. The aortic valve is trileaflet, and appears structurally normal. No aortic stenosis or regurgitation. The mitral valve is normal. Mild mitral regurgitation is present. Mild tricuspid regurgitation present. There is no evidence of pulmonary hypertension. The right ventricular systolic pressure, as measured by Doppler, is 10.32mmHg. The pulmonic valve was not well visualized. There is no pulmonic regurgitation present. The aortic root size is normal. There is no pericardial effusion. CONCLUSIONS -------- 1. This was a technically adequate study. 2. There is no pulmonic regurgitation present. 3. The aortic root size is normal. 4. There is no pericardial effusion. 5. There is moderate concentric left ventricular hypertrophy. 6. Overall left ventricular systolic function is normal with, an EF between 55 - 60 %. 7. Normal LA size by volume 22+/-6 ml/m2. 8. The aortic valve is trileaflet, and appears structurally normal. No aortic stenosis or regurgitation. 9. Mild mitral regurgitation is present. 10. Mild tricuspid regurgitation present. 11. There is no evidence of pulmonary hypertension. 12. The pulmonic valve was not well visualized. [employer] ELECT[employer]ICAL ENGINEER: Tammi Pineda RDCS
[2017-06-16 11:33] LABS: Glucose,Whole Blood 61 mg/dL (75-99)
[2017-06-16 12:01] LABS: Glucose,Whole Blood 63 mg/dL (75-99)
[2017-06-16 12:19] LABS: Glucose,Whole Blood 92 mg/dL (75-99)
[2017-06-16] MEDS ORDERED: INSULIN LISPRO (humaLOG) 300 UNIT/3 ML VIAL SQ SCH (12:30)
[2017-06-16] MEDS: prednisoLONE ACETATE 1% OPHTH DROPS 1 ML BTL RIGHT EYE SCH ×2 (12:48→20:38)
[2017-06-16 15:21] LABS: Troponin I 0.044 ng/mL (0.000-0.034)
--- NOTE | 2017-06-16 16:24 | P.HPIM ---
History of Present Illness 6-year-old pleasant gentleman came in with complaints of shadows were restarted yesterday along with some orthopnea, denied any prior proximal nocturnal dyspnea. Patient is found to have pulmonary edema on the chest x-ray patient was subsequently admitted. Patient denied any fever, chills, nausea, vomiting patient does not have any pneumonia. Patient has chronic kidney disease patient 's BNP is not much elevated but patient is morbidly obese. Patient may have sleep apnea. Patient has normal ejection fraction. Patient is found to have highly elevated creatinine patient does have chronic kidney disease secondary to diabetic nephropathy. Patient now has stage V chronic kidney disease his creatinine has gone up from 4.8-5.59. Because of which nephrology is evaluating for possible hemodialysis. Patient still urinates well and patient urinated S since yesterday. With improvement in his pulmonary edema. Patient may have pulmonary edema secondary to kidney dysfunction on chronic diastolic dysfunction. Review of Systems REVIEW OF SYSTEMS: CONSTITUTIONAL: No fever, no malaise, no fatigue. HEENT: No recent visual problems or hearing problems. Denied any sore throat. CARDIOVASCULAR: No chest pain, PND, no palpitations, no syncope. PULMONARY: As mentioned in HPI GASTROINTESTINAL: No diarrhea, no nausea, no vomiting, no abdominal pain. Normoactive bowel sounds. NEUROLOGICAL: No headaches, no weakness, no numbness. HEMATOLOGICAL: Denies any bleeding or petechiae. GENITOURINARY: Denies any burning micturition, frequency, or urgency. MUSCULOSKELETAL/RHEUMATOLOGICAL: Denies any joint pain, swelling, or any muscle pain. ENDOCRINE: Denies any polyuria or polydipsia. The rest of the 14-point review of systems is negative. Past Medical History Past Medical History: Diabetes Mellitus, Eye Disorder, Fibromyalgia, Hypertension, Pneumonia, Renal Disease, Sleep Apnea/CPAP/BIPAP Additional Past Medical History / Comment(s): IDDM type II, DKA, neuropathy bilateral feet, obesity, chronic renal failure stage IV secondary to DM, normocytic anemia, chronic lower back and shoulders pain, herniated lumbar disk , glaucoma R eye, carpal tunnel syndrome bilaterally, bronchitis, PAULA with CPAP , folliculitis chest, abscesses to back and R groin with I&Ds. History of Any Multi-Drug Resistant Organisms: MRSA Date of last positivie culture/infection: 2012 MDRO Source:: lower back Past Surgical History: No Surgical Hx Reported Additional Past Surgical History / Comment(s): Incision and drainage back and R groin r/t abcesses removed, bilateral eye surgery for retinal repair, R eye surgery for glaucoma-has a drain in place. Past Anesthesia/Blood Transfusion Reactions: Postoperative Nausea & Vomiting ( PONV) Smoking Status: Never smoker - Past Family History Father Family Medical History: Diabetes Mellitus, Hypertension Additional Family Medical History / Comment(s): Bladder cancer in father. Father at the age of 78 from bladder cancer complications. Mother Additional Family Medical History / Comment(s): Mother of brain aneurysm Medications and Allergies Home Medications Medication Instructions Recorded Confirmed Type HYDROcodone/APAP 7.5-325MG [[place] 1 tab PO TID PRN 07/19/14 06/16/17 History 7.5-325] Carvedilol [Coreg*] 12.5 mg PO BID 04/09/17 06/16/17 History Ergocalciferol [Vitamin D2 50,000 unit PO TUFR 04/09/17 06/16/17 History (DRISDOL)] Albuterol Inhaler [Ventolin Hfa 1 - 2 puff INHALATION RT-Q6H PRN 06/16/17 History Inhaler] Furosemide [Lasix] 40 mg PO DAILY 06/16/17 06/16/17 History Insulin Glargine [Lantus] 50 unit SQ DAILY 06/16/17 06/16/17 History Allergies Allergy/AdvReac Type Severity Reaction Status Date / Time peanut Allergy Anaphylaxis Verified 06/16/17 07:34 Physical Exam Vitals: Vital Signs Temp Pulse Pulse Resp BP BP Pulse Ox 06/16/17 16:00 97.1 F L 81 16 169/78 96 06/16/17 12:01 68 06/16/17 12:00 98.4 F 82 16 148/70 94 L 06/16/17 11:47 70 93 L 06/16/17 09:46 98.4 F 88 22 200/96 100 06/16/17 09:10 98.2 F 89 18 171/89 100 06/16/17 07:10 84 18 162/78 92 L 06/16/17 06:41 98.8 F 88 22 161/73 96 06/16/17 05:48 98.2 F 92 22 173/79 97 06/16/17 04:20 98.9 F 83 20 171/80 91 L 06/16/17 03:56 100.3 F H 99 24 194/107 66 L Intake and Output 06/16/17 06/16/17 06/16/17 06:59 14:59 22:59 Other: Voiding Method Toilet Weight 141.521 kg 141.521 kg Patient Weight 06/17/17 06:59 Weight 141.521 kg PHYSICAL EXAMINATION: GENERAL: The patient is alert and oriented x3, not in any acute distress. Well developed, well nourished. He is obese HEENT: Pupils are round and equally reacting to light. EOMI. No scleral icterus. No conjunctival pallor. Normocephalic, atraumatic. No pharyngeal erythema. No thyromegaly. CARDIOVASCULAR: S1 and S2 present. No murmurs, rubs, or gallops. PULMONARY: Chest is clear to auscultation, no wheezing or crackles. ABDOMEN: Soft, nontender, nondistended, normoactive bowel sounds. No palpable organomegaly. MUSCULOSKELETAL: No joint swelling or deformity. EXTREMITIES: No cyanosis, clubbing, mild pedal edema NEUROLOGICAL: Gross neurological examination did not reveal any focal deficits. SKIN: No rashes. Results CBC & Chem 7: 06/16/17 04:15 06/16/17 04:15 Labs: Abnormal Lab Results - Last 24 Hours (Table) 06/16/17 06/16/17 06/16/17 Range/Units 04:15 04:15 04:15 D-Dimer 3.47 H (<0.60) mg/L FEU BUN 49 H (9-20) mg/dL Creatinine 5.59 H* (0.66-1.25) mg/dL POC Glucose (mg/dL) (75-99) mg/dL Calcium 8.1 L (8.4-10.2) mg/dL Total Creatine Kinase 713 H (55-170) U/L CK-MB (CK-2) 4.3 H* (0.0-2.4) ng/mL Troponin I 0.053 H* (0.000-0.034) ng/mL Total Protein 5.9 L (6.3-8.2) g/dL Albumin 3.4 L (3.5-5.0) g/dL Urine Protein (Negative) Urine Blood (Negative) Urine Bacteria (None) /hpf Urine Mucus (None) /hpf 06/16/17 06/16/17 06/16/17 Range/Units 05:17 11:32 11:48 D-Dimer (<0.60) mg/L FEU BUN (9-20) mg/dL Creatinine (0.66-1.25) mg/dL POC Glucose (mg/dL) 61 L 63 L (75-99) mg/dL Calcium (8.4-10.2) mg/dL Total Creatine Kinase (55-170) U/L CK-MB (CK-2) (0.0-2.4) ng/mL Troponin I (0.000-0.034) ng/mL Total Protein (6.3-8.2) g/dL Albumin (3.5-5.0) g/dL Urine Protein 3+ H (Negative) Urine Blood Moderate H (Negative) Urine Bacteria Rare H (None) /hpf Urine Mucus Rare H (None) /hpf 06/16/17 Range/Units 14:00 D-Dimer (<0.60) mg/L FEU BUN (9-20) mg/dL Creatinine (0.66-1.25) mg/dL POC Glucose (mg/dL) (75-99) mg/dL Calcium (8.4-10.2) mg/dL Total Creatine Kinase (55-170) U/L CK-MB (CK-2) 3.0 H* (0.0-2.4) ng/mL Troponin I 0.044 H* (0.000-0.034) ng/mL Total Protein (6.3-8.2) g/dL Albumin (3.5-5.0) g/dL Urine Protein (Negative) Urine Blood (Negative) Urine Bacteria (None) /hpf Urine Mucus (None) /hpf Thrombosis Risk Factor Assmnt - Choose All That Apply Any of the Below Risk Factors Present?: Yes Each Factor Represents 1 point: Abnormal pulmonary function (COPD), Age 41-60 years, Heart failure (<1month), Obesity (BMI >25) Other Risk Factors: No Other congenital or acquired thrombophilia - If yes, enter type in comment: No Thrombosis Risk Factor Assessment Total Risk Factor Score: 4 Thrombosis Risk Factor Assessment Level: Moderate Risk Assessment and Plan Plan: #1 shortness of breath: Secondary to pulmonary edema probably related to chronic diastolic dysfunction with acute exacerbation R chronic kidney disease. Patient has significant symptomatic improvement. 2 chronic kidney disease stage V secondary to diabetic nephropathy: Nephrology is evaluating for possibility of hemodialysis. We'll repeat electrolytes tomorrow possibility of discharge tomorrow depending on nephrology's decision. #3 type 2 diabetes mellitus: His blood sugars are low because of which am down titrating pre-meal insulin as well as Lantus. #4 fibromyalgia #5 sleep apnea: Uses CPAP machine. 6 hypertension.
[2017-06-16 17:06] LABS: Glucose,Whole Blood 96 mg/dL (75-99)
[2017-06-16 17:38] LABS: Creatine Kinase MB 2.7 ng/mL (0.0-2.4); Troponin I 0.044 ng/mL (0.000-0.034)
[2017-06-16] MEDS: ENOXAPARIN 150 MG/ML SYRINGE SQ SCH (18:32)
--- NOTE | 2017-06-16 19:41 | CONS ---
This is a 46-year-old morbidly obese patient with chronic renal failure who comes into the hospital with shortness of breath and has an equivocal troponin elevation. I was asked to see him in this regard. This patient has chronic renal failure and has been seen by Nephrology and also had an elevated D-dimer upon his arrival. He did have a lung perfusion study which suggested low probability for a pulmonary embolism. He is resting comfortably. He indicated to me that he thought his episode of shortness of breath with which he came in was more like a panic attack. He also had an echocardiogram performed today which revealed normal LV size and systolic function with ejection fraction in the range of 55% with concentric LVH of a moderate degree without significant pulmonary hypertension or any valvular regurgitation of significance. His main presentation on arrival in the emergency room was that of shortness and breath and some acute anxiety, which seems to have resolved. He has underling COPD, chronic renal failure; no documented evidence of CAD, CVA or myocardial infarction in the past. PAST MEDICAL HISTORY: 1. Type 2 diabetes mellitus. 2. Hypertension. 3. Hyperlipidemia. 4. Obstructive sleep apnea; uses CPAP. 5. Chronic renal failure. Medications at home include: 1. Amlodipine. 2. Lasix. 3. Insulin. 4. Levofloxacin. 5. Prednisolone. 6. Ophthalmic drops. 7. He also takes Coreg 12.5 mg b.i.d. 8. Hydrocodone for pain. ALLERGIES: NO KNOWN DRUG ALLERGIES. On examination, blood pressure is 148/80. Pulse rate is 70 per minute, regular. HEENT: Unremarkable. Fundus was not examined by me. Neck is supple. There is JVD of 1 to 2 cm. No carotid bruit. Heart exam reveals S1, S2 with somewhat distant heart sounds, short systolic murmur at the base, preserved second heart sound. Lungs reveal diminished air entry. Abdomen is soft, non-tender. Lower extremities reveal diminished pulses, trace edema. CENTRAL NERVOUS SYSTEM: Grossly no focal deficits. EKG revealed sinus mechanism, non-specific ST-T changes; possibility of LVH with repolarization changes should be considered. No acute findings. Laboratory data suggest that his initial troponin is 0.053 and creatinine is elevated at 5.59. ProBNP is not suggestive of any volume overload picture. IMPRESSION: 1. Acute onset of shortness of breath of unclear etiology. Pulmonary embolism has been ruled out. 2. Chronic renal failure. 3. Hypertension. 4. Type 2 diabetes mellitus. 5. Elevate troponin in the current setting does not suggest myocardial injury. Serial troponins have been ordered. RECOMMENDATIONS: I am recommending that he continue current medications. We will switch him from Lovenox to subcutaneous heparin, perform serial troponins. Patient can be discharged tomorrow if he remains stable. His blood pressure seems to be reasonably well controlled. 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 No intervention from a cardiac standpoint at this time. Thank you very much for the consult. NOEMI
[2017-06-16 21:15] LABS: Glucose,Whole Blood 122 mg/dL (75-99)
[2017-06-17 07:16] LABS: Glucose,Whole Blood 99 mg/dL (75-99)
[2017-06-17 07:30] VITALS: TEMP 98.7
[2017-06-17] MEDS: ALBUTEROL NEBULIZED 2.5 MG/3 ML INHALATION SCH ×2 (07:47→12:02)
[2017-06-17] MEDS ORDERED: HEPARIN SODIUM,PORCINE 5,000 UNIT/ML 1 ML VIAL SQ SCH ×2 (08:00)
[2017-06-17] MEDS: CARVEDILOL 12.5 MG TAB PO SCH (08:17)
[2017-06-17] MEDS: amLODIPine 10 MG TAB PO SCH (08:17)
[2017-06-17] MEDS: HYDROcodone/APAP 7.5-325MG 1 EACH TAB PO PRN (08:17)
[2017-06-17 08:18] LABS: Calcium 8.3 mg/dL (8.4-10.2); Potassium 3.9 mmol/L (3.5-5.1)
[2017-06-17] MEDS: INSULIN LISPRO (humaLOG) 300 UNIT/3 ML VIAL SQ SCH ×2 (08:18→13:42)
[2017-06-17] MEDS: prednisoLONE ACETATE 1% OPHTH DROPS 1 ML BTL RIGHT EYE SCH (08:21)
[2017-06-17] MEDS ORDERED: INSULIN GLARGINE 100 UNIT/ML 10 ML VIAL SQ SCH (09:00)
[2017-06-17] MEDS ORDERED: FUROSEMIDE 10 MG/ML 10 ML VIAL IV SCH (09:00)
[2017-06-17] MEDS ORDERED: ASPIRIN 325 MG TAB PO SCH (09:00)
[2017-06-17 09:53] VITALS: BP 157/73
[2017-06-17] MEDS: ENOXAPARIN 150 MG/ML SYRINGE SQ SCH (10:02)
[2017-06-17 10:33] VITALS: RESP 18
--- NOTE | 2017-06-17 10:36 | P.PN ---
Subjective Patient is seen in follow-up for chronic kidney disease stage V. Creatinines at 6.04 today. His dyspnea has resolved. He denies any nausea or vomiting. Denies chest pain. Admits to good urine output. Hemodynamically stable. Patient's known to have chronic kidney disease stage V secondary to diabetic kidney disease. Vital signs are stable. General: The patient appeared well nourished and normally developed. HEENT: Head exam is unremarkable. Neck is without jugular venous distension. LUNGS: Lungs are clear to auscultation and percussion. Breath sounds decreased. HEART: Rate and Rhythm are regular. First and second heart sounds normal. No murmurs, rubs or gallops. ABDOMEN: Abdominal exam reveals normal bowel sounds. Non-tender and non- distended. No evidence of peritonitis. EXTREMITITES: No clubbing, cyanosis, or edema. Objective - Vital Signs Vital signs: Vital Signs Temp 98.7 F 06/17/17 07:00 Pulse 76 06/17/17 07:57 Resp 20 06/17/17 07:00 BP 157/73 06/17/17 09:53 Pulse Ox 95 06/17/17 07:47 Intake & Output 06/16/17 06/17/17 06/17/17 18:59 06:59 18:59 Weight 141.521 kg Other: Voiding Method Toilet Toilet # Voids 1 # Bowel Movements 0 - Labs CBC & Chem 7: 06/16/17 04:15 06/17/17 07:31 Labs: Abnormal Lab Results - Last 24 Hours (Table) 06/16/17 06/16/17 06/16/17 Range/Units 11:32 11:48 14:00 BUN (9-20) mg/dL Creatinine (0.66-1.25) mg/dL POC Glucose (mg/dL) 61 L 63 L (75-99) mg/dL Calcium (8.4-10.2) mg/dL CK-MB (CK-2) 3.0 H* (0.0-2.4) ng/mL Troponin I 0.044 H* (0.000-0.034) ng/mL 06/16/17 06/16/17 06/17/17 Range/Units 16:20 21:02 07:31 BUN 50 H (9-20) mg/dL Creatinine 6.04 H* (0.66-1.25) mg/dL POC Glucose (mg/dL) 122 H (75-99) mg/dL Calcium 8.3 L (8.4-10.2) mg/dL CK-MB (CK-2) 2.7 H* (0.0-2.4) ng/mL Troponin I 0.044 H* (0.000-0.034) ng/mL Assessment and Plan Plan: Assessment: #1. Chronic kidney disease stage V secondary to diabetic kidney disease. Last admission it was stressed the importance of following up as an outpatient but he never did. #2. Volume overload. Improved. #3. Insulin-dependent diabetes mellitus. #4. Hypertension with chronic kidney disease. Uncontrolled. Partially volume sensitive. Plan: I will change Lasix to 80 mg orally twice daily. Add hydralazine 50 mg 3 times daily. Maintain 1500 mL fluid restriction. I again discussed with him the need to start renal placement therapy. He is still not ready and wishes follow-up as an outpatient and to discuss more then. His electrolytes are stable and there are no signs of uremia at this time. He will need to follow-up as an outpatient in the next 1 week.
[2017-06-17] MEDS ORDERED: hydrALAZINE HCL 50 MG TAB PO SCH (10:45)
[2017-06-17 12:10] VITALS: PULSE 80
[2017-06-17 12:30] LABS: Glucose,Whole Blood 169 mg/dL (75-99)
[2017-06-17] MEDS ORDERED: FUROSEMIDE 80 MG TAB PO SCH (16:00)
--- NOTE | 2017-06-18 17:23 | P.DS ---
Providers Date of admission: 06/16/17 07:03 Expected date of discharge: 06/17/17 Attending physician: Devan Mercado Final Diagnoses: #1 shortness of breath: Secondary to pulmonary edema probably related to chronic diastolic dysfunction with acute exacerbation R chronic kidney disease. Patient has significant symptomatic improvement. 2 chronic kidney disease stage V secondary to diabetic nephropathy: Nephrology is evaluating for possibility of hemodialysis. #3 type 2 diabetes mellitus: His blood sugars are low #4 fibromyalgia #5 sleep apnea: Uses CPAP machine. 6 hypertension. Hospital course:This is 46-year-old pleasant gentleman some orthopnea, denied any prior proximal nocturnal dyspnea. Patient is found to have pulmonary edema on the chest x-ray, without pneumonia. BNP is not much elevated, normal ejection fraction.Patient has chronic kidney disease secondary to diabetic nephropathy- creatinine has gone up from 4.8-6.04.Nephrology is evaluating for possible hemodialysis. Urine output. Diuresed well with Lasix IV push, pulmonary edema improved. Significant Clinical improvement. Patient may have pulmonary edema secondary to kidney dysfunction on chronic diastolic dysfunction. Patient has been cleared for discharge by nephrology. Patient is being discharged home in a stable condition with guarded prognosis. The impression and plan of care has been dictated as directed. : I performed a H&P examination of this patient and discussed the same with the dictator. I agree with the dictator's note. Any additional findings/opinions/ etc. will be noted. Consults: 06/16/17 07:00 Consult Physician Routine Consulting Provider: Alex Argueta Consult Reason/Comments: CHF Do you want consulting provider notified?: Yes Consult Physician Routine Consulting Provider: Michelle Medeiros Consult Reason/Comments: Chronic renal failure Do you want consulting provider notified?: Yes Primary care physician: George Cash Patient Condition at Discharge: Stable Plan - Discharge Summary New Discharge Prescriptions: New Furosemide [Lasix] 80 mg PO BID@0900,1600 #60 tab hydrALAZINE HCL [Apresoline] 50 mg PO TID #90 tab Continue HYDROcodone/APAP 7.5-325MG [[place] 7.5-325] 1 tab PO TID PRN PRN Reason: Pain amLODIPine [Norvasc] 10 mg PO DAILY #30 tab Ergocalciferol [Vitamin D2 (DRISDOL)] 50,000 unit PO TUFR Carvedilol [Coreg*] 12.5 mg PO BID Insulin Glulisine [Apidra] 5 units SQ AC-BRKFST #0 Albuterol Inhaler [Ventolin Hfa Inhaler] 1 - 2 puff INHALATION RT-Q6H PRN PRN Reason: Shortness Of Breath Changed Insulin Glargine [Lantus] 30 unit SQ DAILY #0 Insulin Glulisine [Apidra] 5 units SQ BID #0 Discontinued Furosemide [Lasix] 40 mg PO DAILY Discharge Medication List HYDROcodone/APAP 7.5-325MG [[place] 7.5-325] 1 tab PO TID PRN 07/19/14 [History] amLODIPine [Norvasc] 10 mg PO DAILY #30 tab 05/01/15 [Rx] Carvedilol [Coreg*] 12.5 mg PO BID 04/09/17 [History] Ergocalciferol [Vitamin D2 (DRISDOL)] 50,000 unit PO TUFR 04/09/17 [History] Insulin Glulisine [Apidra] 5 units SQ AC-BRKFST #0 04/13/17 [Rx] Albuterol Inhaler [Ventolin Hfa Inhaler] 1 - 2 puff INHALATION RT-Q6H PRN [History] Furosemide [Lasix] 80 mg PO BID@0900,1600 #60 tab 06/17/17 [Rx] Insulin Glargine [Lantus] 30 unit SQ DAILY #0 06/17/17 [Rx] Insulin Glulisine [Apidra] 5 units SQ BID #0 06/17/17 [Rx] hydrALAZINE HCL [Apresoline] 50 mg PO TID #90 tab 06/17/17 [Rx] Follow up Appointment(s)/Referral(s): Michelle Medeiros MD [STAFF PHYSICIAN] - 1 Week (Office will call you with appointment time.) Shailesh Vazquez MD [Primary Care Provider] - 3 Days (Pt wishes to make own appointment. ) Pérez Jackson MD [STAFF PHYSICIAN] - 1 Week (Pt wishes to make own appointment. ) Ambulatory/Diagnostic Orders: Basic Metabolic Panel [LAB.AMB] Time Frame: 3 Days, Location: Determined By Patient Patient Instructions/Handouts: Heart Failure (DC), Chronic Kidney Disease (DC) Activity/Diet/Wound Care/Special Instructions: Diet: Renal, consistent carb Accu-Cheks before meals and at bedtime, maintain log and take to follow-up with PCP for further recommendations Activity: Limited until follow up Discharge Disposition: HOME SELF-CARE
[2017-06-20] MEDS ORDERED: ERGOCALCIFEROL 50,000 UNIT CAP PO SCH (12:00)
== END 2017-06-17 14:08 | disposition home or self-care (01) ==
LOC: EC 03:54 → 6SEL 07:03 → INTOOBSV 07:03 → 6SEL 08:24 → 4MS4W 15:44
PROVIDERS: ADMIT Hospitalist; ATTEND Hospitalist
DX: I13.2 Hypertensive heart and chronic kidney disease with heart failure and with stage 5 chronic kidney disease, or end stage renal disease (principal); I50.33 Acute on chronic diastolic (congestive) heart failure; N18.5 Chronic kidney disease, stage 5; E11.22 Type 2 diabetes mellitus with diabetic chronic kidney disease; E11.40 Type 2 diabetes mellitus with diabetic neuropathy, unspecified; E66.01 Morbid (severe) obesity due to excess calories; E78.5 Hyperlipidemia, unspecified; H40.9 Unspecified glaucoma; J44.9 Chronic obstructive pulmonary disease, unspecified; M79.7 Fibromyalgia; G47.33 Obstructive sleep apnea (adult) (pediatric); G56.03 Carpal tunnel syndrome, bilateral upper limbs; M51.26 Other intervertebral disc displacement, lumbar region; E11.649 Type 2 diabetes mellitus with hypoglycemia without coma; F41.9 Anxiety disorder, unspecified; Z79.4 Long term (current) use of insulin; Z79.899 Other long term (current) drug therapy; Z86.14 Personal history of Methicillin resistant Staphylococcus aureus infection; Z82.49 Family history of ischemic heart disease and other diseases of the circulatory system; Z91.010 Allergy to peanuts; Z68.41 Body mass index [BMI] 40.0-44.9, adult
CPT/HCPCS: 96376 ×2; 96372 ×3; 96374; 99285; 36415; 94640 ×4; 94760 ×2; 93005; 93306; 85379; 83880; 80053; 80048; 82550; 82553; 84484; 85025; 85610; 85730; 81001; 80306; 71010; 78582; G0378 ×2; A9540; A9567; J1644; J1940 ×2; J1650

== ENCOUNTER 2017-06-21 15:37 | Emergency (ER) | payer OTHER ==
[2017-06-21 15:45] VITALS: BP 188/93; PULSE 97; RESP 24; TEMP 98.4
[2017-06-21] MEDS ORDERED: HYDROmorphone 1 MG/ML 1 ML SYRINGE IM STA (16:09)
[2017-06-21] MEDS ORDERED: ONDANSETRON 4 MG/2 ML VIAL IM STA (16:26)
--- NOTE | 2017-06-21 16:35 | ED ---
Eye Problem HPI - General Chief complaint: Eye Problems Stated complaint: eye pressure Time Seen by Provider: 06/21/17 15:51 Source: patient, RN notes reviewed Mode of arrival: ambulatory Limitations: no limitations - History of Present Illness Initial comments: 46-year-old male presents emergency Department chief complaint of right eye pain. Patient has history of glaucoma and states that he went to Dr. Mio cabrera hands office today in which somebody area evaluated him and told his pressure of his right eye was 52. Patient states that his pain started on Wednesday and he contacted his surgeon at that time who told him to follow-up with him. Patient states that today he was seen by local sketch maker given some eyedrops and states that the pain was worsening and he was advised to follow-up with his surgeon again. Patient states she's had no vision of his right eye and this has not changed since his implant that was placed on 01/20/2017. Patient states that he does have a history of diabetes. Patient denies any trauma to his eye. - Related Data Home Medications Medication Instructions Recorded Confirmed HYDROcodone/APAP 7.5-325MG [[place] 1 tab PO TID PRN 07/19/14 06/16/17 7.5-325] Carvedilol [Coreg*] 12.5 mg PO BID 04/09/17 06/16/17 Ergocalciferol [Vitamin D2 50,000 unit PO TUFR 04/09/17 06/16/17 (DRISDOL)] Albuterol Inhaler [Ventolin Hfa 1 - 2 puff INHALATION RT-Q6H PRN 06/16/17 Inhaler] Previous Rx's Medication Instructions Recorded amLODIPine [Norvasc] 10 mg PO DAILY #30 tab 05/01/15 Insulin Glulisine [Apidra] 5 units SQ AC-BRKFST #0 04/13/17 Furosemide [Lasix] 80 mg PO BID@0900,1600 #60 tab 06/17/17 Insulin Glargine [Lantus] 30 unit SQ DAILY #0 06/17/17 Insulin Glulisine [Apidra] 5 units SQ BID #0 06/17/17 hydrALAZINE HCL [Apresoline] 50 mg PO TID #90 tab 06/17/17 Allergies Allergy/AdvReac Type Severity Reaction Status Date / Time peanut Allergy Anaphylaxis Verified 06/21/17 15:45 Review of Systems ROS Statement: Those systems with pertinent positive or pertinent negative responses have been documented in the HPI. ROS Other: All systems not noted in ROS Statement are negative. Past Medical History Past Medical History: Diabetes Mellitus, Eye Disorder, Fibromyalgia, Hypertension, Pneumonia, Renal Disease, Sleep Apnea/CPAP/BIPAP Additional Past Medical History / Comment(s): IDDM type II, DKA, neuropathy bilateral feet, obesity, chronic renal failure stage IV secondary to DM, normocytic anemia, chronic lower back and shoulders pain, herniated lumbar disk , glaucoma R eye, carpal tunnel syndrome bilaterally, bronchitis, PAULA with CPAP , folliculitis chest, abscesses to back and R groin with I&Ds. History of Any Multi-Drug Resistant Organisms: MRSA Date of last positivie culture/infection: 2012 MDRO Source:: lower back Past Surgical History: No Surgical Hx Reported Additional Past Surgical History / Comment(s): Incision and drainage back and R groin r/t abcesses removed, bilateral eye surgery for retinal repair, R eye surgery for glaucoma-has a drain in place. Past Anesthesia/Blood Transfusion Reactions: Postoperative Nausea & Vomiting ( PONV) Past Psychological History: No Psychological Hx Reported Smoking Status: Never smoker - Past Family History Father Family Medical History: Diabetes Mellitus, Hypertension Additional Family Medical History / Comment(s): Bladder cancer in father. Father at the age of 78 from bladder cancer complications. Mother Additional Family Medical History / Comment(s): Mother of brain aneurysm General Exam Limitations: no limitations General appearance: alert, in no apparent distress Head exam: Present: atraumatic, normocephalic, normal inspection Eye exam: Present: PERRL, EOMI, conjunctival injection (Right). Absent: normal appearance, scleral icterus, periorbital swelling Expanded Eyelids: Normal Inspection: Bilateral Pupils: Regular, Round: Left, Mydriasis: Right (mid) Sclera/Conjunctival: Injection: Right Anterior chamber: Normal Inspection: Bilateral Visual acuity (R) = 20/: 200 (no vision) Visual acuity (L) = 20/: 40 IOP (R) in mmH IOP measured with: Tonopen ENT exam: Present: normal exam, normal oropharynx, mucous membranes moist, TM's normal bilaterally Neck exam: Present: normal inspection, full ROM. Absent: tenderness, meningismus, lymphadenopathy Respiratory exam: Present: normal lung sounds bilaterally. Absent: respiratory distress, wheezes, rales, rhonchi, stridor Cardiovascular Exam: Present: regular rate, normal rhythm, normal heart sounds. Absent: systolic murmur, diastolic murmur, rubs, gallop, clicks Neurological exam: Present: alert, oriented X3, CN II-XII intact Course Vital Signs 06/21/17 15:43 Temperature 98.4 F Pulse Rate 97 Respiratory 24 Rate Blood Pressure 188/93 O2 Sat by Pulse 97 Oximetry Medical Decision Making - Medical Decision Making I discussed the case with Dr. Cesar patient's sketch maker and surgeon in [place]. Patient is case was discussed in detail and he recommends patient to come down to [facility] for evaluation. I did inform the patient that he needs to be transferred down to [facility] and he refuses at this time. Patient states that he will call to his appointment tomorrow. Patient was given pain relief in the emergency department. Patient does have drops for treatment of glaucoma. Patient was informed that he needs to go down to the emergency department for evaluation. Patient has no vision currently in this is normal for him. He was informed that worsening of his condition and may have permanent damage if he does not put out for evaluation. Patient understands. Disposition Clinical Impression: Acute glaucoma of right eye Disposition: HOME SELF-CARE Condition: Stable Additional Instructions: Go to [facility] for evaluation with your surgeon. Please return to the Emergency Department if symptoms worsen or any other concerns. Referrals: Shailesh Vazquez MD [Primary Care Provider] - 1-2 days Time of Disposition: 16:34
== END 2017-06-21 16:51 | disposition home or self-care (01) ==
LOC: EC 15:37
DX: H40.9 Unspecified glaucoma (principal); H11.431 Conjunctival hyperemia, right eye; H57.04 Mydriasis; I10 Essential (primary) hypertension; Z79.899 Other long term (current) drug therapy; Z91.010 Allergy to peanuts; Z98.890 Other specified postprocedural states
CPT/HCPCS: 99283; 96372 ×2; J2405; J1170

== ENCOUNTER 2017-07-23 14:20 | Emergency (ER) | payer OTHER ==
[2017-07-23 14:48] VITALS: BP 174/84; PULSE 90; RESP 18; TEMP 99
[2017-07-23] MEDS ORDERED: PROPARACAINE 0.5% OPHTH DROPS 15 ML BTL RIGHT EYE STA (17:11)
[2017-07-23] MEDS ORDERED: PROPARACAINE 0.5% OPHTH DROPS 15 ML BTL ONE (17:12)
[2017-07-23] MEDS ORDERED: HYDROcodone/APAP 10-325MG 1 EACH TAB PO ONE (17:34)
--- NOTE | 2017-07-23 17:55 | ED ---
Eye Problem HPI - General Chief complaint: Eye Problems Stated complaint: cannot see out of one eye/head pain Time Seen by Provider: 07/23/17 17:07 Source: patient, RN notes reviewed Mode of arrival: wheelchair Limitations: no limitations, physical limitation - History of Present Illness Initial comments: 46-year-old male presents to the emergency Department chief complaint right eye pain. Patient states his pain started around 6 AM this morning. Patient states that he has a history of glaucoma and states he has no vision of his right eye. Patient states that he had an implant put in by Dr. Cesar at [place]. Patient states that he called him today who advised him come down to [place] to be evaluated. Patient states that he did not go down there and came here. Patient states he has been using his drops as directed. Patient was seen approximately one month ago for similar symptoms in which she states that they discontinue mom drops. Patient is requesting something for pain at this time. Patient denies any nausea vomiting no fevers no chills no trauma to his eye. - Related Data Home Medications Medication Instructions Recorded Confirmed Carvedilol [Coreg*] 12.5 mg PO BID 04/09/17 07/23/17 Ergocalciferol [Vitamin D2 50,000 unit PO TUFR 04/09/17 07/23/17 (DRISDOL)] Albuterol Inhaler [Ventolin Hfa 1 - 2 puff INHALATION RT-Q6H PRN 06/16/17 Inhaler] Insulin Glargine [Lantus] 60 unit SQ QAM 06/21/17 07/23/17 Insulin Glulisine [Apidra] 5 units SQ AC-BRKFST 06/21/17 07/23/17 Brimonidine Tartrate/Timolol 1 drop BOTH EYES TID 07/23/17 07/23/17 [Combigan 0.2%-0.5% Eye Drops] Insulin Glulisine [Apidra] 10 unit SQ BID@1200,1700 07/23/17 07/23/17 cycloSPORINE 0.05% OPHTH SOLN 1 applicator RIGHT EYE Q12H 07/23/17 07/23/17 [Restasis] prednisoLONE ACETATE 1% OPHTH 1 drops RIGHT EYE QID 07/23/17 07/23/17 [Pred Forte 1%] Previous Rx's Medication Instructions Recorded amLODIPine [Norvasc] 10 mg PO DAILY #30 tab 05/01/15 Furosemide [Lasix] 80 mg PO BID@0900,1600 #60 tab 06/17/17 hydrALAZINE HCL [Apresoline] 50 mg PO TID #90 tab 06/17/17 Allergies Allergy/AdvReac Type Severity Reaction Status Date / Time peanut Allergy Anaphylaxis Verified 07/23/17 14:48 Review of Systems ROS Statement: Those systems with pertinent positive or pertinent negative responses have been documented in the HPI. ROS Other: All systems not noted in ROS Statement are negative. Past Medical History Past Medical History: Diabetes Mellitus, Eye Disorder, Fibromyalgia, Hypertension, Pneumonia, Renal Disease, Sleep Apnea/CPAP/BIPAP Additional Past Medical History / Comment(s): IDDM type II, DKA, neuropathy bilateral feet, obesity, chronic renal failure stage IV secondary to DM, normocytic anemia, chronic lower back and shoulders pain, herniated lumbar disk , glaucoma R eye, carpal tunnel syndrome bilaterally, bronchitis, PAULA with CPAP , folliculitis chest, abscesses to back and R groin with I&Ds. History of Any Multi-Drug Resistant Organisms: MRSA Date of last positivie culture/infection: 2012 MDRO Source:: lower back Past Surgical History: No Surgical Hx Reported Additional Past Surgical History / Comment(s): Incision and drainage back and R groin r/t abcesses removed, bilateral eye surgery for retinal repair, R eye surgery for glaucoma-has a drain in place. Past Anesthesia/Blood Transfusion Reactions: Postoperative Nausea & Vomiting ( PONV) Past Psychological History: No Psychological Hx Reported Smoking Status: Never smoker Past Alcohol Use History: None Reported Past Drug Use History: None Reported - Past Family History Father Family Medical History: Diabetes Mellitus, Hypertension Additional Family Medical History / Comment(s): Bladder cancer in father. Father at the age of 78 from bladder cancer complications. Mother Additional Family Medical History / Comment(s): Mother of brain aneurysm General Exam Limitations: no limitations, physical limitation General appearance: alert, in no apparent distress Head exam: Present: atraumatic, normocephalic, normal inspection Eye exam: Present: EOMI, conjunctival injection (Right with chemosis), periorbital tenderness (Mild right). Absent: normal appearance, PERRL (Mild dilated right with nonreactive), scleral icterus, periorbital swelling Expanded Pupils: Regular, Round: Left, Reactive: Left Sclera/Conjunctival: Injection: Right IOP (R) in mmH IOP (L) in mmH IOP measured with: Tonopen ENT exam: Present: normal exam, normal oropharynx, mucous membranes moist, TM's normal bilaterally, normal external ear exam Respiratory exam: Present: normal lung sounds bilaterally. Absent: respiratory distress, wheezes, rales, rhonchi, stridor Cardiovascular Exam: Present: regular rate, normal rhythm, normal heart sounds. Absent: systolic murmur, diastolic murmur, rubs, gallop, clicks Course Vital Signs 07/23/17 14:45 Temperature 99 F Pulse Rate 90 Respiratory 18 Rate Blood Pressure 174/84 O2 Sat by Pulse 100 Oximetry Medical Decision Making - Medical Decision Making 46-year-old male present emergency department for right eye pain. Patient has ongoing chronic issue his right eye. Patient had increased pain today. Patient did call his clinical data assistant to recommends him to come down to see him at his office today. Patient does not report on this morning. Discuss with his clinical data assistant that he can go down and they will evaluate him down at [place]. I did recommend the patient to go down there for evaluation he states he does understand and will without for evaluation. Patient will be given pain medication now and discharge. Patient's pressure is 20. Patient does not have vision though this is chronic. Patient does have all the drops for acute angle glaucoma currently and is using them. Disposition Clinical Impression: Pain, eye, right, Hx of glaucoma Disposition: HOME SELF-CARE Condition: Stable Instructions: Eye Pain (ED) Additional Instructions: Go to your clinical data assistant as directed. Please return to the Emergency Department if symptoms worsen or any other concerns. Referrals: Shailesh Vazquez MD [Primary Care Provider] - 1-2 days Time of Disposition: 17:57
== END 2017-07-23 18:37 | disposition home or self-care (01) ==
LOC: EC 14:20
DX: H40.9 Unspecified glaucoma (principal); H11.421 Conjunctival edema, right eye; I10 Essential (primary) hypertension; E11.9 Type 2 diabetes mellitus without complications; Z79.4 Long term (current) use of insulin; Z79.52 Long term (current) use of systemic steroids; Z79.899 Other long term (current) drug therapy; Z91.010 Allergy to peanuts; Z98.890 Other specified postprocedural states; Z96.89 Presence of other specified functional implants
CPT/HCPCS: 99283

== ENCOUNTER → 2017-07-30 | Outpatient (CLI) | payer OTHER | END | disposition home or self-care (01) | LOC: LABWHC1 10:01 | PROVIDERS: ATTEND Urology | DX: E29.1 Testicular hypofunction (principal) | CPT/HCPCS: 36415; 84403 ==

== ENCOUNTER 2017-08-31 21:16 | Inpatient (IN) | payer MEDICARE, OTHER ==
[2017-08-31] MEDS ORDERED: SODIUM CHLORIDE 0.9% 500 ML IV STA (21:31)
[2017-08-31] MEDS ORDERED: NITROGLYCERIN OINT 1 INCH/GM PACKET TOPICAL STA (21:31)
[2017-08-31] MEDS ORDERED: SODIUM CHLORIDE 0.9% 1,000 ML IV STA (21:31)
[2017-08-31] MEDS ORDERED: LORazepam 2 MG/ML INJ IV STA (21:32)
[2017-08-31] MEDS ORDERED: PROMETHAZINE INJ 12.5 MG in SODIUM CHLORIDE 0.9% 50 ML IVPB STA (21:35)
[2017-08-31 21:47] LABS: Basophils % (A) 0 %; CH 29.5; CHCM 33.5; Eosinophils # (A) 0.2 k/uL (0-0.7); Eosinophils % (A) 1 %; Luc # (Auto) 0.09; Luc % (Auto) 1; Lymphocytes # (A) 1.7 k/uL (1.0-4.8); Lymphocytes % (A) 15 %; MCH 28.3 pg (25.0-35.0); MCV 88.5 fL (80.0-100.0); Monocytes # (A) 0.3 k/uL (0-1.0); Monocytes % (A) 3 %; Neutrophils # (A) 8.7 k/uL (1.3-7.7); Neutrophils % (A) 80 %; RBC 5.31 m/uL (4.30-5.90); RDW 13.8 % (11.5-15.5); WBC (Perox) 10.77
[2017-08-31 21:56] LABS: INR 1.1 (<1.2); Partial Thromboplastin Time 25.8 sec (22.0-30.0); Prothrombin Time 10.9 sec (9.0-12.0)
[2017-08-31 22:00] LABS: Calcium 9.6 mg/dL (8.4-10.2); Magnesium 2.1 mg/dL (1.6-2.3); Potassium 4.7 mmol/L (3.5-5.1); Total Bilirubin 0.6 mg/dL (0.2-1.3); Total Protein 8.3 g/dL (6.3-8.2)
--- NOTE | 2017-08-31 22:06 | ED ---
Chest Pain HPI - General Chief Complaint: Chest Pain Stated Complaint: Chest Pain/Low Sugar Time Seen by Provider: 08/31/17 21:25 Source: patient Mode of arrival: wheelchair Limitations: no limitations - History of Present Illness Initial Comments: This 47-year-old -British male presents with a complaint of some chest pain. He states that it was midsternal pressure which started several hours ago. He states that it is improved at this time. He is complaining of some nausea and vomiting as well. He states that the pain radiated posteriorly. He denies any other complaints or modifying factors but is difficult to get much history from him. He keeps stating that he needs to stand up and walk it off. He seems very anxious. He does tell the nurse that he was having some abdominal pain earlier. He later tells me that he was having pain throughout his entire body. No other identifiable complaints or modifying factors. - Related Data Home Medications Medication Instructions Recorded Confirmed Carvedilol [Coreg*] 12.5 mg PO BID 04/09/17 07/23/17 Ergocalciferol [Vitamin D2 50,000 unit PO TUFR 04/09/17 07/23/17 (DRISDOL)] Albuterol Inhaler [Ventolin Hfa 1 - 2 puff INHALATION RT-Q6H PRN 06/16/17 Inhaler] Insulin Glargine [Lantus] 60 unit SQ QAM 06/21/17 07/23/17 Insulin Glulisine [Apidra] 5 units SQ AC-BRKFST 06/21/17 07/23/17 Brimonidine Tartrate/Timolol 1 drop BOTH EYES TID 07/23/17 07/23/17 [Combigan 0.2%-0.5% Eye Drops] Insulin Glulisine [Apidra] 10 unit SQ BID@1200,1700 07/23/17 07/23/17 cycloSPORINE 0.05% OPHTH SOLN 1 applicator RIGHT EYE Q12H 07/23/17 07/23/17 [Restasis] prednisoLONE ACETATE 1% OPHTH 1 drops RIGHT EYE QID 07/23/17 07/23/17 [Pred Forte 1%] Previous Rx's Medication Instructions Recorded amLODIPine [Norvasc] 10 mg PO DAILY #30 tab 05/01/15 Furosemide [Lasix] 80 mg PO BID@0900,1600 #60 tab 06/17/17 hydrALAZINE HCL [Apresoline] 50 mg PO TID #90 tab 06/17/17 Allergies Allergy/AdvReac Type Severity Reaction Status Date / Time peanut Allergy Anaphylaxis Verified 08/31/17 22:31 Review of Systems ROS Statement: Those systems with pertinent positive or pertinent negative responses have been documented in the HPI. ROS Other: All systems not noted in ROS Statement are negative. Past Medical History Past Medical History: Diabetes Mellitus, Eye Disorder, Fibromyalgia, Hypertension, Pneumonia, Renal Disease, Sleep Apnea/CPAP/BIPAP Additional Past Medical History / Comment(s): IDDM type II, DKA, neuropathy bilateral feet, obesity, chronic renal failure stage IV secondary to DM, normocytic anemia, chronic lower back and shoulders pain, herniated lumbar disk , glaucoma R eye, carpal tunnel syndrome bilaterally, bronchitis, PAULA with CPAP , folliculitis chest, abscesses to back and R groin with I&Ds. History of Any Multi-Drug Resistant Organisms: MRSA Date of last positivie culture/infection: 2012 MDRO Source:: lower back Past Surgical History: No Surgical Hx Reported Additional Past Surgical History / Comment(s): Incision and drainage back and R groin r/t abcesses removed, bilateral eye surgery for retinal repair, R eye surgery for glaucoma-has a drain in place. Past Anesthesia/Blood Transfusion Reactions: Postoperative Nausea & Vomiting ( PONV) Past Psychological History: No Psychological Hx Reported Smoking Status: Never smoker Past Alcohol Use History: None Reported Past Drug Use History: None Reported - Past Family History Father Family Medical History: Diabetes Mellitus, Hypertension Additional Family Medical History / Comment(s): Bladder cancer in father. Father at the age of 78 from bladder cancer complications. Mother Additional Family Medical History / Comment(s): Mother of brain aneurysm General Exam - General Exam Comments Initial Comments: GENERAL: The patient is well nourished and well hydrated. VITAL SIGNS: Heart rate, blood pressure, respiratory rate reviewed as recorded in nurse's notes. EYES: Pupils are round and reactive. Extraocular movements are intact. No conjunctival / lid redness or swelling. ENT: No external evidence of injury, swelling, or ecchymosis. Airway is patent. Throat is clear. NECK: Nontender. No swelling or evidence of injury. No subcutaneous emphysema. Trachea is midline. No thyroid mass. HEART: Regular rate and rhythm. Good peripheral pulses. LUNGS/CHEST: Breath sounds clear and equal bilaterally. No rales, rhonchi, or wheezes. No ecchymosis, subcutaneous emphysema, or tenderness. ABDOMEN: Abdomen soft without tenderness. No palpable masses or organomegaly. No peritoneal signs. No abdominal wall swelling or ecchymosis. EXTREMITIES: No extremity tenderness. Normal muscle tone and function. No thoracolumbar tenderness. NEUROLOGIC: Sensation is grossly intact. Cranial nerve exam reveals face is symmetrical, tongue is midline, speech is clear. SKIN: No abrasions or ecchymosis is noted. No induration or masses noted. PSYCHIATRIC: Alert and oriented. Appears very anxious, poor historian. Limitations: no limitations Course Vital Signs 08/31/17 08/31/17 08/31/17 21:27 21:50 22:38 Temperature 98.6 F Pulse Rate 83 72 60 Respiratory 24 24 18 Rate Blood Pressure 200/88 178/83 134/78 O2 Sat by Pulse 100 100 95 Oximetry 08/31/17 23:06 Temperature Pulse Rate 79 Respiratory 18 Rate Blood Pressure 134/78 O2 Sat by Pulse 95 Oximetry Chest Pain MDM - MDM The patient was seen and inversions in the lateral leads which appears to be chronic as compared to old EKG. The KS interval is 162, the QRS duration is 80 , and the QTc interval is 462. An IV is started. He receives some Phenergan for his nausea as well as some Ativan for his anxiety. The laboratory is reviewed and does show severely elevated creatinine. This is slightly higher than previous. Old records indicate that he likely will need dialysis in the near future and he has a diabetic nephropathy. There is slight elevation of the CK-MB but the troponin is negative. Chest x-ray does not show any acute process. It is felt as though he would require admission to the hospital to rule out the possibility of acute coronary syndrome. He also will benefit from further evaluation with nephrology to determine if dialysis is necessary. The case is discussed with internal medicine and they're agreeable to admission. Disposition Clinical Impression: Chest pain, Hypertension, Anxiety, Chronic renal failure, Nausea and vomiting, Diabetes Disposition: ADMITTED IP TO THIS HOSP Condition: Fair Time of Disposition: 23:36 Decision Date: 08/31/17 Decision Time: 23:36
--- NOTE | 2017-08-31 22:12 | XR ---
EXAMINATION TYPE: XR chest 2V DATE OF EXAM: 08/31/2017 COMPARISON: 06/16/2017 HISTORY: Chest pain TECHNIQUE: Frontal and lateral views of the chest are obtained. FINDINGS: There is no heart failure nor confluent pneumonic infiltrate. There are chest leads. Costo phrenic angles are clear. Bony thorax is intact. IMPRESSION: No active cardiopulmonary disease. No change.
[2017-08-31 22:25] LABS: Troponin I 0.024 ng/mL (0.000-0.034)
[2017-08-31 22:31] LABS: Creatine Kinase MB 4.1 ng/mL (0.0-2.4)
[2017-08-31] MEDS ORDERED: NITROGLYCERIN SL TABS 0.4 MG TAB SUBLINGUAL PRN (23:54)
[2017-08-31] MEDS ORDERED: ALBUTEROL NEBULIZED 2.5 MG/3 ML INHALATION PRN (23:58)
[2017-09-01 01:27] VITALS: BMI 41.0
[2017-09-01] MEDS ORDERED: HYDROcodone/APAP 5-325MG 1 EACH TAB PO STA (01:44)
[2017-09-01 03:59] LABS: Cholesterol 95 mg/dL (<200); HDL Cholesterol 50 mg/dL (40-60)
[2017-09-01 04:27] LABS: Troponin I 0.026 ng/mL (0.000-0.034)
[2017-09-01 04:32] LABS: Creatine Kinase MB 2.8 ng/mL (0.0-2.4)
[2017-09-01] MEDS: cycloSPORINE 0.05% OPHTH 0.4 ML DROPERETTE RIGHT EYE SCH ×3 (05:42→21:47)
[2017-09-01] MEDS ORDERED: NITROGLYCERIN OINT 1 INCH/GM PACKET TOPICAL SCH (06:00)
[2017-09-01 06:02] LABS: Glucose,Whole Blood 58 mg/dL (75-99)
[2017-09-01 06:39] LABS: Glucose,Whole Blood 98 mg/dL (75-99)
--- NOTE | 2017-09-01 08:50 | P.CRDCN ---
History of Present Illness Consult date: 09/01/17 Requesting physician: Chapis Howard Reason for Consult (text): chest pain Chief complaint: nausea, vomiting, chest pain History of present illness: This is a 47-year-old -Malag[place] gentleman who presented to the emergency department with complaints of chest discomfort, nausea and vomiting. He has a known history of diabetes, hypertension and chronic renal failure has been recommended dialysis in the past and has declined. According to the patient he also has chronic pain due to fibromyalgia. Yesterday around 3 PM he became nauseous and vomited and following that developed some chest discomfort he describes as pinching, this was going on for several hours prior to presenting to the emergency department. EKG on admission shows sinus rhythm with T-wave inversions in the inferolateral leads, similar to previous EKGs. Patient did have an echocardiogram during previous admission in May of this year that showed an ejection fraction of 55-60% with moderate LVH, mild MR and mild TR. Labs on admission show a BUN of 78 and a creatinine of 7.67, most recent creatinine from June 17 was at 6.04. It is unclear whether or not the patient follows with nephrology as an outpatient. Components were checked and came in to be negative 2 at 0.024 and 0.026. Upon examination, patient is laying in bed, he is somewhat lethargic. His main complaint is of a headache and nausea. Past Medical History Past Medical History: Diabetes Mellitus, Eye Disorder, Fibromyalgia, Hypertension, Pneumonia, Renal Disease, Sleep Apnea/CPAP/BIPAP Additional Past Medical History / Comment(s): IDDM type II, DKA, neuropathy bilateral feet, obesity, chronic renal failure stage IV secondary to DM, normocytic anemia, chronic lower back and shoulders pain, herniated lumbar disk , glaucoma R eye, carpal tunnel syndrome bilaterally, bronchitis, PAULA with CPAP , folliculitis chest, abscesses to back and R groin with I&Ds. History of Any Multi-Drug Resistant Organisms: MRSA Date of last positivie culture/infection: 2012 MDRO Source:: lower back Past Surgical History: No Surgical Hx Reported Additional Past Surgical History / Comment(s): Incision and drainage back and R groin r/t abcesses removed, bilateral eye surgery for retinal repair, R eye surgery for glaucoma-has a drain in place. Past Anesthesia/Blood Transfusion Reactions: Postoperative Nausea & Vomiting ( PONV) Past Psychological History: No Psychological Hx Reported Additional Psychological History / Comment(s): Pt resides with another adult. He uses a cane at times. He drives. Smoking Status: Never smoker Past Alcohol Use History: None Reported Past Drug Use History: None Reported - Past Family History Father Family Medical History: Diabetes Mellitus, Hypertension Additional Family Medical History / Comment(s): Bladder cancer in father. Father at the age of 78 from bladder cancer complications. Mother Additional Family Medical History / Comment(s): Mother of brain aneurysm Medications and Allergies Home Medications Medication Instructions Recorded Confirmed Type amLODIPine [Norvasc] 10 mg PO DAILY #30 tab 05/01/15 09/01/17 Rx Carvedilol [Coreg*] 12.5 mg PO BID 04/09/17 09/01/17 History Ergocalciferol [Vitamin D2 50,000 unit PO TUFR 04/09/17 09/01/17 History (DRISDOL)] Albuterol Inhaler [Ventolin Hfa 1 - 2 puff INHALATION RT-Q6H PRN 06/16/17 History Inhaler] Furosemide [Lasix] 80 mg PO BID@0900,1600 #60 tab 06/17/17 09/01/17 Rx hydrALAZINE HCL [Apresoline] 50 mg PO TID #90 tab 06/17/17 09/01/17 Rx Insulin Glargine [Lantus] 50 unit SQ QAM 06/21/17 09/01/17 History Insulin Glulisine [Apidra] 10 unit SQ AC-TID 07/23/17 09/01/17 History cycloSPORINE 0.05% OPHTH SOLN 1 applicator RIGHT EYE Q12H 07/23/17 09/01/17 History [Restasis] prednisoLONE ACETATE 1% OPHTH 1 drops RIGHT EYE QID 07/23/17 09/01/17 History [Pred Forte 1%] Allergies Allergy/AdvReac Type Severity Reaction Status Date / Time peanut Allergy Anaphylaxis Verified 08/31/17 22:31 Physical Exam Vitals: Vital Signs Temp Pulse Pulse Resp BP BP Pulse Ox 09/01/17 04:00 97.1 F L 74 18 169/84 97 09/01/17 00:28 97.0 F L 68 18 185/86 99 09/01/17 00:22 98.4 F 60 18 120/61 97 08/31/17 23:06 79 18 134/78 95 08/31/17 22:38 60 18 134/78 95 08/31/17 21:50 72 24 178/83 100 08/31/17 21:27 98.6 F 83 24 200/88 100 Intake and Output 08/31/17 09/01/17 09/01/17 22:59 06:59 14:59 Intake Total 1500 Output Total 800 Balance 700 Intake: Amount of Fluid Infused ( 700 ml) Intake, IV Titration 800 Amount Sodium Chloride 0.9% 1, 800 000 ml @ 100 mls/hr IV . Q10H STA Rx#:[id number] Output: Urine 800 Other: Voiding Method Urinal Weight 145.15 kg 158 kg PHYSICAL EXAMINATION: HEENT: Head is atraumatic, normocephalic. Neck is supple. There is no elevated jugular venous pressure. HEART EXAMINATION: Heart sounds regular, S1 and S2 normal. No murmur or gallop heard. CHEST EXAMINATION: Lungs are clear to auscultation and precussion. No chest wall tenderness is noted on palpation or with deep breathing. ABDOMEN: Soft, obese, nontender. Bowel sounds are heard. No organomegaly noted. EXTREMITIES: Diminished peripheral pulses with evidence of trace peripheral edema and no calf tenderness noted. NEUROLOGIC patient is awake, lethargic and oriented x2. . Results 08/31/17 21:30 08/31/17 21:30 Cardiac Enzymes 08/31/17 08/31/17 09/01/17 Range/Units 21:30 21:30 03:21 AST 20 (17-59) U/L CK-MB (CK-2) 4.1 H* 2.8 H* (0.0-2.4) ng/mL Troponin I 0.024 0.026 (0.000-0.034) ng/mL Coagulation 08/31/17 Range/Units 21:30 PT 10.9 (9.0-12.0) sec APTT 25.8 (22.0-30.0) sec Lipids 09/01/17 Range/Units 03:21 Triglycerides 76 (<150) mg/dL Cholesterol 95 (<200) mg/dL HDL Cholesterol 50 (40-60) mg/dL CBC 08/31/17 Range/Units 21:30 WBC 11.0 H (3.8-10.6) k/uL RBC 5.31 (4.30-5.90) m/uL Hgb 15.0 (13.0-17.5) gm/dL Hct 47.0 (39.0-53.0) % Plt Count 207 (150-450) k/uL Comprehensive Metabolic Panel 08/31/17 Range/Units 21:30 Sodium 146 H (137-145) mmol/L Potassium 4.7 (3.5-5.1) mmol/L Chloride 101 (98-107) mmol/L Carbon Dioxide 29 (22-30) mmol/L BUN 78 H (9-20) mg/dL Creatinine 7.67 H* (0.66-1.25) mg/dL Glucose 115 H (74-99) mg/dL Calcium 9.6 (8.4-10.2) mg/dL AST 20 (17-59) U/L ALT 28 (21-72) U/L Alkaline Phosphatase 82 (38-126) U/L Total Protein 8.3 H (6.3-8.2) g/dL Albumin 4.9 (3.5-5.0) g/dL Current Medications Generic Name Dose Route Start Last Admin Trade Name Freq PRN Reason Stop Dose Admin Albuterol Sulfate 2.5 mg 08/31/17 23:58 Ventolin Nebulized INHALATION RT-Q6H PRN Shortness Of Breath Amlodipine Besylate 10 mg 09/01/17 09:00 Norvasc PO DAILY [facility] Aspirin 325 mg 09/01/17 09:00 Aspirin PO DAILY [facility] Brimonidine Tartrate 1 drops 09/01/17 09:00 Alphagan P 0.2% Ophth Soln BOTH EYES TID [facility] Carvedilol 12.5 mg 09/01/17 07:30 Coreg PO AC-BID [facility] Cyclosporine 1 drops 08/31/17 23:45 09/01/17 05:42 Restasis 0.05% Ophth Soln RIGHT EYE Not Given Q12H [facility] Enoxaparin Sodium 40 mg 09/01/17 09:00 Lovenox SQ DAILY [facility] Ergocalciferol 50,000 unit 09/03/17 09:00 Vitamin D2 PO TuFr@0900 [facility] Furosemide 80 mg 09/01/17 09:00 Lasix PO BID@0900,1600 [facility] Hydralazine HCl 50 mg 09/01/17 09:00 Apresoline PO TID LORI Insulin Glargine 60 unit 09/01/17 09:00 Lantus SQ QAM LORI Lorazepam 0.5 mg 09/01/17 00:01 Ativan IV Q6H PRN Anxiety Nitroglycerin 1 inch 09/01/17 06:00 09/01/17 05:56 Nitro-Bid Oint TOPICAL 1 inch Q6HR LORI Administration Nitroglycerin 0.4 mg 08/31/17 23:54 Nitrostat SUBLINGUAL Q5M PRN Chest Pain Ondansetron HCl 8 mg 09/01/17 00:00 Zofran IVP Q8H PRN Nausea Prednisolone Acetate 1 drops 09/01/17 09:00 Pred Forte 1% RIGHT EYE QID LORI Timolol Maleate 1 drops 09/01/17 09:00 Timoptic BOTH EYES TID LORI Intake and Output 08/31/17 09/01/17 09/01/17 22:59 06:59 14:59 Intake Total 1500 Output Total 800 Balance 700 Intake: Amount of Fluid Infused ( 700 ml) Intake, IV Titration 800 Amount Sodium Chloride 0.9% 1, 800 000 ml @ 100 mls/hr IV . Q10H STA Rx#:[id number] Output: Urine 800 Other: Voiding Method Urinal Weight 145.15 kg 158 kg 08/31/17 21:30 08/31/17 21:30 EKG Interpretations (text) Sinus rhythm with inverted T waves in the inferior lateral leads, similar to previous Assessment and Plan Plan: Assessment and plan #1 atypical chest pain #2 chronic renal failure #3 hypertension #4 diabetes mellitus From Cardiology's perspective, patient's renal failure is a more imminent problem. We will await nephrology's input. We will pursue further cardiac workup if appropriate at a later time. We'll continue to follow the patient and provide further recommendations accordingly. BLADE SHARPENER note has been reviewed, I agree with a documented findings and plan of care. Patient was seen and examined.
[2017-09-01] MEDS ORDERED: ENOXAPARIN 40 MG/0.4 ML SYRINGE SQ SCH (09:00)
[2017-09-01] MEDS ORDERED: FUROSEMIDE 80 MG TAB PO SCH (09:00)
[2017-09-01] MEDS: LORazepam 2 MG/ML INJ IV PRN (09:07)
[2017-09-01] MEDS: ONDANSETRON 4 MG/2 ML VIAL IVP PRN (09:07)
[2017-09-01] MEDS: ASPIRIN 325 MG TAB PO SCH (09:08)
[2017-09-01] MEDS: hydrALAZINE HCL 50 MG TAB PO SCH ×3 (09:08→21:47)
[2017-09-01] MEDS: amLODIPine 10 MG TAB PO SCH (09:09)
[2017-09-01] MEDS: BRIMONIDINE TARTRATE 0.2% DROPS 5 ML BTL BOTH EYES SCH ×3 (09:09→21:46)
[2017-09-01] MEDS: TIMOLOL 0.5% OPHTH DROPS 5 ML BTL BOTH EYES SCH ×3 (09:09→21:46)
[2017-09-01] MEDS: CARVEDILOL 12.5 MG TAB PO SCH ×2 (09:09→17:32)
[2017-09-01] MEDS: prednisoLONE ACETATE 1% OPHTH DROPS 5 ML BTL RIGHT EYE SCH ×4 (09:10→21:46)
--- NOTE | 2017-09-01 09:10 | P.PN ---
Progress Note - Text This is an addendum to the dictated cardiology consultation. The patient has advanced chronic kidney disease, stage V, long-standing history of hypertension and diabetes mellitus who presents with symptoms of chest discomfort, persistent and not related to physical activity. He has symptoms of nausea and vomiting yesterday and appears to be drowsy this morning. His cardiac enzymes revealed no evidence of acute changes and there is no EKG changes either. His left ventricle systolic function by echocardiography was normal during his most recent admission. His symptoms of chest discomfort appears to be atypical for ischemic heart disease. The patient is showing signs of advanced uremia and most likely would require dialysis. Reviewing the old records it appears that he has declined that option in the past. From the cardiac standpoint no further workup will be needed at this time. Depending on his progress further recommendations will be made. Thank you for this consult we will follow with you.
[2017-09-01 10:44] LABS: Troponin I 0.026 ng/mL (0.000-0.034)
[2017-09-01 12:06] LABS: Glucose,Whole Blood 114 mg/dL (75-99)
[2017-09-01] MEDS: INSULIN GLARGINE 100 UNIT/ML 10 ML VIAL SQ SCH (13:44)
[2017-09-01] MEDS ORDERED: METOCLOPRAMIDE 5 MG/ML 2 ML VIAL IVP PRN (15:24)
[2017-09-01 16:51] LABS: Glucose,Whole Blood 243 mg/dL (75-99)
--- NOTE | 2017-09-01 17:07 | HP ---
HISTORY AND PHYSICAL DATE OF SERVICE: 09/01/2017 CHIEF COMPLAINT: Chest pain and vomiting as well as headache. HISTORY OF PRESENT ILLNESS: This 47-year-old gentleman with a past medical history of multiple medical problems, including renal failure, history of diabetes mellitus, hypertension, hyperlipidemia, being followed by Dr. Vazquez in the outpatient setting, apparently was being worked up for hemodialysis. The patient apparently is noncompliant with instructions and yesterday the patient had abdominal pain. Subsequently the patient had vomiting. Patient was complaining of chest pain subsequently which was felt in the anterior part of the chest, radiating posteriorly. The patient came to [facility] and was admitted for further evaluation and treatment. The troponin was 0.026, indeterminate. CK was elevated. Creatinine was elevated at 7.67. There is no history of fever or rigors. No history of headache, loss of consciousness, seizures. PAST MEDICAL HISTORY: 1. History of renal failure, chronic. 2. History of hypertension. 3. Pneumonia. 4. Sleep apnea. 5. Diabetes mellitus, type 2. HOME MEDICATIONS: 1. Pred Forte 1% one drop b.i.d. 2. Apresoline 50 mg t.i.d. 3. Restasis 1 application b.i.d. 4. Norvasc 10 mg p.o. daily. 5. Apidra 10 units before meals t.i.d. 6. Lantus 15 units subcutaneously each morning. 7. Lasix 80 mg p.o. b.i.d. 8. Vitamin D2 (Drisdol) 50,000 Wednesday and Wednesday. 9. Coreg 12.5 mg p.o. b.i.d. 10.Ventolin HFA 1 to 2 puffs q.6 p.r.n. ALLERGIES: PEANUTS. FAMILY HISTORY: History of diabetes, hypertension and bladder cancer in the family. SOCIAL HISTORY: No history of smoking. No history of alcohol intake. REVIEW OF SYSTEMS: ENT: No diminished hearing. No diminished vision. CARDIOVASCULAR SYSTEM: As mentioned earlier. RESPIRATORY SYSTEM: As mentioned earlier. GI: As mentioned earlier. : As mentioned earlier. NERVOUS SYSTEM: No numbness, weakness. ALLERGY/IMMUNOLOGY: No asthma, hayfever. MUSCULOSKELETAL: As mentioned earlier. HEMATOLOGY/ONCOLOGY: No history of anemia. ENDOCRINE: As mentioned earlier. CONSTITUTIONAL: As mentioned earlier. DERMATOLOGY: Negative. RHEUMATOLOGY: Negative. PSYCHIATRY: As mentioned earlier. PHYSICAL EXAMINATION: Patient is alert oriented x3. Pulse is 62, blood pressure 175/80, respiration 19, temperature 98 degrees, pulse ox 97% on room air. HEENT: Conjunctivae normal. Oral mucosa moist. Facial puffiness present. NECK: No jugular venous distention. No carotid bruit. No lymph node enlargement. CARDIOVASCULAR: S1, S2 muffled. No S3. No S4. RESPIRATORY: Breath sounds diminished at the bases. A few scattered rhonchi. No crackles. ABDOMEN: Soft, obese, nontender. No mass palpable. LEGS: No edema. No swelling. NERVOUS SYSTEM: Higher functions as mentioned earlier. Moves all 4 limbs. No focal motor or sensory deficit. LYMPHATICS: No lymph node palpable in neck, axillae or groin. SKIN: No ulcer, rash, bleeding. LABS: WBC 11, hemoglobin 15. Sodium 146, creatinine 1.60. Troponin is noted. The EKG shows diffuse ST-T changes. ASSESSMENT: 1. Chest pain, possible unstable angina. Rule out coronary disease. 2. Renal failure, acute on chronic, symptomatic, secondary to uremia, worsening. 3. Vomiting; possible acute gastritis. 4. Diabetes mellitus, type 2. 5. Hypertension. 6. History of fibromyalgia. 7. History of diabetic ketoacidosis. 8. History of peripheral neuropathy secondary to diabetes. 9. History of degenerative joint disease. 10.Sleep apnea. 11.Obesity with body mass index of 44.7. RECOMMENDATIONS AND DISCUSSION: In this 47-year-old gentleman who presented with multiple complex medical issues, we will monitor the patient closely, continue the current medications, continue with symptomatic treatment. Otherwise, I recommend symptomatic treatment with Protonix. Cardiology consultation. Avoid nephrotoxic medications. Nephrology evaluation. The patient might need emergent hemodialysis because of the worsening symptoms of uremia at this time. Discussed with the patient. The patient understands and agrees. I discussed with staff as well. Further recommendations to follow. See orders for further details. Use Tylenol for pain medication currently because of the concerns of renal failure. MMODL / IJN: [id number] /
[2017-09-01 18:53] LABS: Appearance,Urine Clear (Clear); Bacteria,Urine Rare /hpf; Bilirubin,Urine Negative (Negative); Glucose,Urine (UA) Trace (Negative); Ketones,Urine Negative (Negative); Leukocyte Esterase,Urine Negative (Negative); Mucus,Urine Rare /hpf; Nitrite,Urine Negative (Negative); Particle Count 523; Protein,Urine 2+ (Negative); RBC,Urine 2 /hpf (0-5); Specific Gravity,Urine 1.008 (1.001-1.035); Squamous Epithelial Cell,Urine <1 /hpf (0-4); UA Billing (MACRO vs. MICRO) MICRO; Urobilinogen,Urine <2.0 mg/dL (<2.0); WBC,Urine <1 /hpf (0-5)
[2017-09-01 20:05] LABS: Glucose,Whole Blood 295 mg/dL (75-99)
--- NOTE | 2017-09-01 20:34 | CONS ---
CONSULTATION REASON FOR CONSULT: Renal failure DATE OF SERVICE: 09/01/2017. HISTORY OF PRESENT ILLNESS: The patient is a 47-year-old male with history of chronic kidney disease NKF stage 4-5 secondary to diabetic nephropathy. The patient has been noncompliant with followup as outpatient. He was advised to follow up as outpatient after his hospitalization in March of this year. At that time serum creatinine was at 5.2 mg/dL. The patient was last seen at our office in October of last year. He was supposed to receive education and start dialysis as an outpatient. He is admitted this time with complaints of weakness. He also had chest pain at the time of admission. He states he has been having nausea and vomiting. He denies diarrhea. He is not able to eat much. PAST MEDICAL HISTORY: Type 2 diabetes, hypertension, pneumonia, CKD stage 5, obstructive sleep apnea, neuropathy, anemia of chronic disease, chronic back pain. Obstructive sleep apnea. PAST SURGICAL HISTORY: I and D of previous abscess, eye surgery, retinal surgery. SOCIAL HISTORY: Negative for smoking, drug abuse or alcohol abuse. MEDICATIONS: Medications at home prior to admission included: 1. Vitamin D. 2. Coreg. 3. Insulin. 4. Timolol eye drops. 5. The patient previously had been on Norvasc, Lasix, and hydralazine. ALLERGIES: INCLUDE PEANUTS. REVIEW OF SYSTEMS: As per HPI. Other systems negative. EXAMINATION: Patient is comfortable, awake. He is not in any acute distress. He is uncomfortable and feels nauseated. Examination shows blood pressure 175/80 earlier, then it went down to 140/77, heart rate 63 per minute patient is afebrile. Examination of the heart S1, S2. Examination lungs bilateral breath sounds are heard. Decreased breath sounds at bases. No crackles or wheezing is heard. ABDOMEN: Soft, obese. Examination of the lower extremities shows chronic skin changes. Trace edema noted bilaterally. CAISSON WORKER exam shows patient is moving all 4 extremities. No motor deficits are noted. LAB: Show sodium 146, potassium 4.7 from yesterday, serum creatinine 7.67, BUN of 78, hemoglobin 15.0. Amylase, lipase were not elevated. Total CK was at 450. ASSESSMENT: 1. Chronic kidney disease stage V secondary to diabetic nephropathy. The patient has had been noncompliant as outpatient. He did not show up for follow up. He was supposed to start renal replacement therapy. He has been referred for transplant evaluation as well which he has not gone to. I have advised him that we will need to start dialysis this admission. He states that he prefers hemodialysis over peritoneal dialysis. He may not be a good candidate for PD as well. I have advised him that if his an renal function is not significantly improved by tomorrow, we will need to start dialysis and he is agreeable. 2. Anemia of chronic disease. 3. Chronic kidney disease bone mineral disorder. Check phosphorus levels. 4. Type 2 diabetes, maintained on insulin. 5. History of congestive heart failure and previous admission for fluid overload. Echocardiogram shows ejection fraction 55% to 60% with moderate concentric LVH. Normal left atrial size. PLAN: Repeat labs in a.m. Start dialysis this admission if no significant improvement in labs. The patient is not on any nephrotoxic medications at this time. I will check a phosphorus level. I will also hold off on the Lasix as his chest x-ray was completely clear. MMODL / IJN: [id number] /
[2017-09-01 20:56] LABS: Glucose,Whole Blood 276 mg/dL (75-99)
[2017-09-01] MEDS: ACETAMINOPHEN TAB 500 MG TAB PO PRN (21:42)
[2017-09-01] MEDS: INSULIN LISPRO (humaLOG) 300 UNIT/3 ML VIAL SQ SCH (21:44)
[2017-09-02 05:51] LABS: Glucose,Whole Blood 112 mg/dL (75-99)
[2017-09-02] MEDS: INSULIN LISPRO (humaLOG) 300 UNIT/3 ML VIAL SQ SCH ×4 (06:29→22:51)
[2017-09-02] MEDS: ACETAMINOPHEN TAB 500 MG TAB PO PRN (06:37)
[2017-09-02] MEDS: CARVEDILOL 12.5 MG TAB PO SCH ×2 (06:37→17:14)
[2017-09-02 06:44] LABS: Basophils % (A) 0 %; CHCM 30.7; Eosinophils # (A) 0.2 k/uL (0-0.7); Eosinophils % (A) 2 %; HCT 40.1 % (39.0-53.0); HDW 2.62; HGB 12.4 gm/dL (13.0-17.5); Hypochromasia Moderate; Luc # (Auto) 0.15; Luc % (Auto) 2; Lymphocytes % (A) 29 %; MCH 28.4 pg (25.0-35.0); MCV 91.7 fL (80.0-100.0); Mean Platelet Volume 8.9; Monocytes # (A) 0.3 k/uL (0-1.0); Monocytes % (A) 5 %; Neutrophils # (A) 4.2 k/uL (1.3-7.7); Neutrophils % (A) 62 %; RBC 4.38 m/uL (4.30-5.90); RDW 12.6 % (11.5-15.5); WBC 6.9 k/uL (3.8-10.6)
[2017-09-02 06:57] LABS: Calcium 8.2 mg/dL (8.4-10.2); Phosphorus 5.9 mg/dL (2.5-4.5)
[2017-09-02] MEDS ORDERED: INSULIN LISPRO (humaLOG) 300 UNIT/3 ML VIAL SQ SCH (07:30)
[2017-09-02] MEDS: BRIMONIDINE TARTRATE 0.2% DROPS 5 ML BTL BOTH EYES SCH ×3 (09:31→22:50)
[2017-09-02] MEDS: hydrALAZINE HCL 50 MG TAB PO SCH ×3 (09:31→22:51)
[2017-09-02] MEDS: prednisoLONE ACETATE 1% OPHTH DROPS 5 ML BTL RIGHT EYE SCH ×4 (09:31→22:50)
[2017-09-02] MEDS: TIMOLOL 0.5% OPHTH DROPS 5 ML BTL BOTH EYES SCH ×3 (09:31→22:50)
[2017-09-02] MEDS: amLODIPine 10 MG TAB PO SCH (09:32)
[2017-09-02] MEDS: PANTOPRAZOLE 40 MG/10 ML VIAL IVP SCH (09:34)
[2017-09-02 10:17] LABS: Glucose,Whole Blood 140 mg/dL (75-99)
[2017-09-02 12:02] LABS: Glucose,Whole Blood 160 mg/dL (75-99)
[2017-09-02] MEDS: INSULIN GLARGINE 100 UNIT/ML 10 ML VIAL SQ SCH (12:54)
[2017-09-02] MEDS: cycloSPORINE 0.05% OPHTH 0.4 ML DROPERETTE RIGHT EYE SCH ×2 (12:56→22:51)
[2017-09-02] MEDS: ONDANSETRON 4 MG/2 ML VIAL IVP PRN (14:40)
--- NOTE | 2017-09-02 14:47 | P.PN ---
Subjective Progress Note Date: 09/02/17 Principal diagnosis: Chronic Renal Failure This is a 47-year-old -[place]ym[place] gentleman who presented to the emergency department with complaints of chest discomfort, nausea and vomiting. He has a known history of diabetes, hypertension and chronic renal failure has been recommended dialysis in the past and has declined. According to the patient he also has chronic pain due to fibromyalgia. Yesterday around 3 PM he became nauseous and vomited and following that developed some chest discomfort he describes as pinching, this was going on for several hours prior to presenting to the emergency department. EKG on admission shows sinus rhythm with T-wave inversions in the inferolateral leads, similar to previous EKGs. Patient did have an echocardiogram during previous admission in May of this year that showed an ejection fraction of 55-60% with moderate LVH, mild MR and mild TR. Labs on admission show a BUN of 78 and a creatinine of 7.67, most recent creatinine from June 17 was at 6.04. The patient has been noncompliant with nephrology follow-up as an outpatient . Troponins were checked and came in to be negative 3. Repeat labs this morning show BUN of 72 and creatinine of 7.4. He is scheduled to have Perma-cath placed today and hemodialysis. Upon examination, patient is laying in bed, he is less lethargic. He has no further c /o chest discomfort. Does c/o fatigue, dizziness and intermittent nausea. Objective - Vital Signs Vital signs: Vital Signs Temp 97.1 F L 09/01/17 20:00 Pulse 62 09/02/17 12:00 Resp 18 09/02/17 12:00 BP 139/73 09/02/17 12:00 Pulse Ox 97 09/02/17 12:00 Intake & Output 09/01/17 09/02/17 09/02/17 18:59 06:59 18:59 Intake Total 600 490 Output Total 250 900 200 Balance 350 -410 -200 Weight 158 kg Intake: Intake, IV Titration 10 Amount Sodium Chloride 0.9% 1, 10 000 ml @ 100 mls/hr IV . Q10H STA Rx#:[id number] Oral 600 480 Output: Urine 250 900 200 Other: Voiding Method Urinal # Voids 1 1 - Exam PHYSICAL EXAMINATION: HEENT: Head is atraumatic, normocephalic. Neck is supple. There is no elevated jugular venous pressure. HEART EXAMINATION: Heart sounds regular, S1 and S2 normal. No murmur or gallop heard. CHEST EXAMINATION: Lungs are clear to auscultation and precussion. No chest wall tenderness is noted on palpation or with deep breathing. ABDOMEN: Soft, obese, nontender. Bowel sounds are heard. No organomegaly noted. EXTREMITIES: Diminished peripheral pulses with evidence of trace peripheral edema and no calf tenderness noted. NEUROLOGIC patient is awake, alert, less lethargic today and oriented x3. - Labs CBC & Chem 7: 09/02/17 05:43 09/02/17 05:43 Labs: Abnormal Lab Results - Last 24 Hours (Table) 09/01/17 09/01/17 09/01/17 Range/Units 16:31 18:30 20:01 Hgb (13.0-17.5) gm/dL BUN (9-20) mg/dL Creatinine (0.66-1.25) mg/dL Glucose (74-99) mg/dL POC Glucose (mg/dL) 243 H 295 H (75-99) mg/dL Calcium (8.4-10.2) mg/dL Phosphorus (2.5-4.5) mg/dL Urine Protein 2+ H (Negative) Urine Glucose (UA) Trace H (Negative) Urine Blood Trace H (Negative) Urine Bacteria Rare H (None) /hpf Urine Mucus Rare H (None) /hpf 09/01/17 09/02/17 09/02/17 Range/Units 20:55 05:43 05:43 Hgb 12.4 L (13.0-17.5) gm/dL BUN 72 H (9-20) mg/dL Creatinine 7.40 H* (0.66-1.25) mg/dL Glucose 116 H (74-99) mg/dL POC Glucose (mg/dL) 276 H (75-99) mg/dL Calcium 8.2 L (8.4-10.2) mg/dL Phosphorus 5.9 H (2.5-4.5) mg/dL Urine Protein (Negative) Urine Glucose (UA) (Negative) Urine Blood (Negative) Urine Bacteria (None) /hpf Urine Mucus (None) /hpf 09/02/17 09/02/17 09/02/17 Range/Units 05:49 10:05 11:58 Hgb (13.0-17.5) gm/dL BUN (9-20) mg/dL Creatinine (0.66-1.25) mg/dL Glucose (74-99) mg/dL POC Glucose (mg/dL) 112 H 140 H 160 H (75-99) mg/dL Calcium (8.4-10.2) mg/dL Phosphorus (2.5-4.5) mg/dL Urine Protein (Negative) Urine Glucose (UA) (Negative) Urine Blood (Negative) Urine Bacteria (None) /hpf Urine Mucus (None) /hpf Assessment and Plan Plan: Assessment and plan #1 atypical chest pain #2 chronic renal failure #3 hypertension #4 diabetes mellitus #5 noncompliance From Cardiology's perspective, patient's renal failure is a more imminent problem. We will pursue further cardiac workup if appropriate at a later time. We'll continue to follow the patient and provide further recommendations accordingly. OIL ANALYST note has been reviewed, I agree with a documented findings and plan of care. Patient was seen and examined.
[2017-09-02] MEDS ORDERED: SODIUM CHLORIDE 0.9% 250 ML IV ONE (15:15)
[2017-09-02] MEDS: fentaNYL (PF) 50 MCG/ML 2 ML AMP IV ONE ×2 (15:26→15:45)
[2017-09-02] MEDS ORDERED: LIDOCAINE 2% INJ 20 MG/ML SQ ONE ×2 (15:28→15:41)
[2017-09-02] MEDS: MIDAZOLAM 2 MG/2 ML VIAL IV ONE ×2 (15:29→15:54)
--- NOTE | 2017-09-02 15:29 | PN ---
PROGRESS NOTE DATE OF SERVICE: 09/02/2017 This is a 47-year-old gentleman admitted with nausea, vomiting, headache and chest pain. Also had significant renal failure indicating acute on chronic renal failure. Patient apparently was evaluated in the outpatient setting at multiple times. The patient was recommended hemodialysis and even possible renal transplant evaluation also but; however, the patient did not turn up for those evaluations or followup according to Dr. Medeiros's notes. Currently the patient is slightly drowsy. Cardio is also following the patient as well as Nephrology, Dr. Tellez has been consulted for an emergent hemodialysis insertion and catheter insertion and possibly emergent hemodialysis also. PAST MEDICAL HISTORY: Reviewed. REVIEW OF SYSTEMS: Could not be taken. The patient is mildly confused. CURRENT MEDICATIONS ARE REVIEWED, INCLUDE: 1. Tylenol p.r.n. 2. Norvasc 10 mg daily. 3. Aspirin and Alphagan Coreg 3 status Lovenox some temp is on Ativan Reglan Protonix the Timoptic. PHYSICAL EXAM: Patient is pulse is 64, blood pressure 159/70, respiration 18, temperature is normal. Pulse ox 99% on 2 L. HEENT: Conjunctivae normal. Oral mucosa moist. Neck is no jugular venous distention. No carotid bruit, no lymph node enlargement. Obese, CARDIOVASCULAR SYSTEM: S1, S2, muffled. LUNGS: Breath sounds diminished at the bases, a few scattered rhonchi. No crackles. ABDOMEN: Soft, obese, nontender. LEGS: Bilateral leg edema. NERVOUS SYSTEM: Diffusely weak. LABS: WBC is 6.1, hemoglobin is 12.4, creatinine 7.4. ASSESSMENT: 1. Chest pain, possible unstable angina. 2. Myocardial infarction ruled out. 3. Renal failure, acute on chronic, symptomatic secondary to uremia worsening. 4. Vomiting, possible acute gastritis and also secondary to uremia. 5. Diabetes mellitus type 2. 6. Hypertension. 7. History of fibromyalgia. 8. History of diabetic ketoacidosis. 9. History of peripheral neuropathy second to diabetes mellitus, type 2. 10.History of degenerative joint disease. 11.Sleep apnea. 12.Obesity with body mass index of 44.7. RECOMMENDATIONS: Recommend to continue with the current management and symptomatic treatment. Otherwise, will monitor closely. Dialysis, catheter insertion and urgent hemodialysis per Nephrology. Guarded prognosis because of multiple complex medical issues and further recommendations to follow. MMODL / IJN: [id number] /
[2017-09-02] MEDS ORDERED: MIDAZOLAM 2 MG/2 ML VIAL IV ONE (16:05)
--- NOTE | 2017-09-02 16:43 | XR ---
EXAMINATION TYPE: XR chest 1V portable DATE OF EXAM: 09/02/2017 COMPARISON: 08/31/2017 HISTORY: Dialysis catheter placement TECHNIQUE: Single frontal view of the chest is obtained. FINDINGS: There is a new large bore central venous catheter placed from an internal jugular approach terminating in the distal superior vena cava just proximal to the superior vena cava/right atrial ju nction. This appears appropriately placed. There is no focal air space opacity, pleural effusion, or pneumothorax seen. The cardiac silhouette size is stable. The osseous structures are intact. IMPRESSION: Appropriately placed right hemodialysis catheter with no postprocedural pneumothorax jamison ntified. No acute cardiopulmonary process.
[2017-09-02 17:11] LABS: Glucose,Whole Blood 118 mg/dL (75-99)
[2017-09-02] MEDS: ENOXAPARIN 30 MG/0.3 ML SYRINGE SQ SCH (17:14)
[2017-09-02] MEDS: ASPIRIN 325 MG TAB PO SCH (17:14)
[2017-09-02] MEDS: LORazepam 2 MG/ML INJ IV PRN ×2 (17:15→22:58)
[2017-09-02 20:44] LABS: Glucose,Whole Blood 200 mg/dL (75-99)
--- NOTE | 2017-09-02 20:44 | PCN ---
PROCEDURE NOTE PREOPERATIVE DIAGNOSIS: Acute on chronic renal failure. PROCEDURE: Placement of a dialysis catheter, 28-cm ultrasound-guided right internal jugular approach. The patient was brought to the slab off mill tender. Right neck and chest were prepped and draped in the usual sterile manner and 1% lidocaine for the neck and chest area with IV sedation. Ultrasound-guided dialysis needle was introduced in the right internal jugular vein. Micropuncture guidewire was passed. After that, 4-Luxembourgish dilator advanced on top of the guidewire, checked under fluoroscopy. Catheter was in the inferior vena cava. This was exchanged for a regular guidewire and then incision was made on the anterior wall of the chest. A tunnel was created. Through the tunnel, we brought the 28-cm dialysis catheter. Then dilator was advanced on the top of the guidewire and then a sheath was advanced. Through the sheath we introduced the dialysis catheter. Tip of the catheter was in the superior vena cava it was flushed with heparin saline and hep-locked, secured with Vicryl and nylon. Patient tolerated the procedure well. MMODL / IJN: [id number] /
[2017-09-02] MEDS: HYDROcodone/APAP 5-325MG 1 EACH TAB PO PRN (20:55)
[2017-09-02] MEDS ORDERED: HEPARIN SODIUM,PORCINE 5,000 UNIT/ML 1 ML VIAL ONE (22:00)
--- NOTE | 2017-09-02 22:01 | PN ---
PROGRESS NOTE Patient is seen for followup for CKD, stage V. He has agreed to dialysis and he is scheduled for PermCath placement this afternoon. PHYSICAL EXAMINATION: Blood pressure 157/70, heart rate 64 per minute. Patient is afebrile. EXAMINATION OF THE HEART: S1, S2. EXAMINATION OF LUNGS: Bilateral breath sounds are heard. ABDOMEN: Soft, obese. Examination of lower extremities shows no significant edema. LABS: Sodium 141, potassium 4.0, hemoglobin 12.4 g/dL, phosphorus 5.9. ASSESSMENT: 1. Chronic kidney disease, stage V, secondary to diabetic nephropathy. The patient will be dialyzed today and he will have a second treatment of hemodialysis again tomorrow. He needs to be set up as outpatient for placement for dialysis. 2. 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 3. Anemia of chronic disease. 4. Type 2 diabetes. 5. History of congestive heart failure with ejection fraction of 55% to 60% previously with moderate concentric left ventricular hypertrophy and normal left atrial size. PLAN: Hemodialysis today as well as in a.m. Patient will need placement for outpatient hemodialysis. MMODL / IJN: [id number] /
[2017-09-03 00:59] LABS: Hepatitis B Surface Antibody Non-Reactive (Non-Reactive)
[2017-09-03] MEDS: HYDROcodone/APAP 5-325MG 1 EACH TAB PO PRN ×2 (03:37→09:59)
[2017-09-03] MEDS: ONDANSETRON 4 MG/2 ML VIAL IVP PRN (05:25)
[2017-09-03 05:55] LABS: Glucose,Whole Blood 187 mg/dL (75-99)
[2017-09-03 06:32] LABS: Basophils % (A) 0 %; CH 29.4; CHCM 31.9; Eosinophils # (A) 0.1 k/uL (0-0.7); Eosinophils % (A) 2 %; HCT 42.7 % (39.0-53.0); HDW 2.63; HGB 13.1 gm/dL (13.0-17.5); Luc # (Auto) 0.07; Luc % (Auto) 1; Lymphocytes # (A) 1.4 k/uL (1.0-4.8); Lymphocytes % (A) 21 %; MCH 28.4 pg (25.0-35.0); MCHC 30.7 g/dL (31.0-37.0); MCV 92.5 fL (80.0-100.0); Mean Platelet Volume 10.2; Monocytes # (A) 0.3 k/uL (0-1.0); Monocytes % (A) 5 %; Neutrophils # (A) 4.8 k/uL (1.3-7.7); Neutrophils % (A) 71 %; RBC 4.62 m/uL (4.30-5.90); RDW 13.7 % (11.5-15.5); WBC 6.7 k/uL (3.8-10.6); WBC (Perox) 6.36
[2017-09-03 06:46] LABS: Calcium 8.4 mg/dL (8.4-10.2); Potassium 4.4 mmol/L (3.5-5.1)
[2017-09-03] MEDS: INSULIN GLARGINE 100 UNIT/ML 10 ML VIAL SQ SCH (07:57)
[2017-09-03] MEDS: ASPIRIN 325 MG TAB PO SCH (07:58)
[2017-09-03] MEDS: INSULIN LISPRO (humaLOG) 300 UNIT/3 ML VIAL SQ SCH ×4 (07:58→22:17)
[2017-09-03] MEDS: ERGOCALCIFEROL 50,000 UNIT CAP PO SCH (07:58)
[2017-09-03] MEDS: CARVEDILOL 12.5 MG TAB PO SCH ×2 (07:58→18:28)
[2017-09-03] MEDS: amLODIPine 10 MG TAB PO SCH (07:58)
[2017-09-03] MEDS: hydrALAZINE HCL 50 MG TAB PO SCH ×3 (07:58→22:18)
[2017-09-03] MEDS: BRIMONIDINE TARTRATE 0.2% DROPS 5 ML BTL BOTH EYES SCH ×3 (07:59→22:19)
[2017-09-03] MEDS: PANTOPRAZOLE 40 MG/10 ML VIAL IVP SCH (08:00)
[2017-09-03] MEDS: ENOXAPARIN 30 MG/0.3 ML SYRINGE SQ SCH (08:00)
[2017-09-03] MEDS: prednisoLONE ACETATE 1% OPHTH DROPS 5 ML BTL RIGHT EYE SCH ×4 (08:00→22:18)
[2017-09-03] MEDS: TIMOLOL 0.5% OPHTH DROPS 5 ML BTL BOTH EYES SCH ×3 (08:00→22:18)
--- NOTE | 2017-09-03 11:08 | P.PN ---
Subjective Progress Note Date: 09/03/17 Principal diagnosis: Chronic Renal Failure This is a 47-year-old -[place] gentleman who presented to the emergency department with complaints of chest discomfort, nausea and vomiting. He has a known history of diabetes, hypertension and chronic renal failure has been recommended dialysis in the past and has declined. According to the patient he also has chronic pain due to fibromyalgia. On the day of admission, around 3pm he became nauseous and vomited and following that developed some chest discomfort he describes as pinching, this was going on for several hours prior to presenting to the emergency department. EKG on admission shows sinus rhythm with T-wave inversions in the inferolateral leads, similar to previous EKGs. Patient did have an echocardiogram during previous admission in May of this year that showed an ejection fraction of 55-60% with moderate LVH, mild MR and mild TR. Labs on admission show a BUN of 78 and a creatinine of 7.67, most recent creatinine from June 17 was at 6.04. The patient has been noncompliant with nephrology follow-up as an outpatient . Troponins were checked and came in to be negative 3. Repeat labs this morning show BUN of 72 and creatinine of 7.4. He underwent Perma-cath placement and hemodialysis yesterday. Labs this morning show BUN 55 and Creatinine 6.5. He will be undergoing hemodialysis again today. Upon examination, patient is laying in bed, he is less lethargic. He has no further c/o chest discomfort. He is feeling a bit better today. He continues to c/o intermittent nausea and generalized pain. He had one asymptomatic episode of NSVT this morning. His potassium is normal at 4.4. Objective - Vital Signs Vital signs: Vital Signs Temp 97.4 F L 09/03/17 07:58 Pulse 75 09/03/17 07:58 Resp 16 09/03/17 07:58 BP 176/84 09/03/17 07:58 Pulse Ox 98 09/03/17 07:58 Intake & Output 09/02/17 09/03/17 09/03/17 18:59 06:59 18:59 Intake Total 750 500 Output Total 200 1300 Balance 550 -800 Weight 159 kg 158.757 kg Intake: IV 150 Intake, IV Titration 20 Amount Sodium Chloride 0.9% 250 20 ml As IV .[employer] ONE Rx# :[id number] Oral 600 480 Output: Urine 200 1300 Other: Voiding Method Urinal Urinal # Voids 1 - Exam PHYSICAL EXAMINATION: HEENT: Head is atraumatic, normocephalic. Neck is supple. There is no elevated jugular venous pressure. HEART EXAMINATION: Heart sounds regular, S1 and S2 normal. No murmur or gallop heard. CHEST EXAMINATION: Lungs are clear to auscultation and precussion. No chest wall tenderness is noted on palpation or with deep breathing. ABDOMEN: Soft, obese, nontender. Bowel sounds are heard. No organomegaly noted. EXTREMITIES: Diminished peripheral pulses with evidence of trace peripheral edema and no calf tenderness noted. NEUROLOGIC patient is awake, alert, less lethargic today and oriented x3. - Labs CBC & Chem 7: 09/03/17 06:13 09/03/17 06:10 Labs: Abnormal Lab Results - Last 24 Hours (Table) 09/02/17 09/02/17 09/02/17 Range/Units 11:58 17:08 20:43 MCHC (31.0-37.0) g/dL BUN (9-20) mg/dL Creatinine (0.66-1.25) mg/dL Glucose (74-99) mg/dL POC Glucose (mg/dL) 160 H 118 H 200 H (75-99) mg/dL 09/03/17 09/03/17 09/03/17 Range/Units 05:53 06:10 06:13 MCHC 30.7 L (31.0-37.0) g/dL BUN 55 H (9-20) mg/dL Creatinine 6.50 H* (0.66-1.25) mg/dL Glucose 237 H (74-99) mg/dL POC Glucose (mg/dL) 187 H (75-99) mg/dL Assessment and Plan Plan: Assessment and plan #1 atypical chest pain #2 chronic renal failure #3 hypertension #4 diabetes mellitus #5 noncompliance #6 NSVT, asymptomatic From Cardiology's perspective, patient's NSVT was asymptomatic, potassium is normal. We will follow magnesium. We will continue to follow the patient and provide further recommendations accordingly. INDUSTRIAL RELATIONS SPECIALIST note has been reviewed, I agree with a documented findings and plan of care. Patient was seen and examined.
[2017-09-03 11:39] LABS: Glucose,Whole Blood 256 mg/dL (75-99)
--- NOTE | 2017-09-03 12:16 | IR ---
EXAMINATION TYPE: IR cvc insert central tunneled DATE OF EXAM: 09/02/2017 COMPARISON: NONE HISTORY: Dialysis catheter. Fluoroscopy was provided to the referring clinician. See dictated report from vascular surgery.
[2017-09-03] MEDS: cycloSPORINE 0.05% OPHTH 0.4 ML DROPERETTE RIGHT EYE SCH ×2 (12:28→22:19)
--- NOTE | 2017-09-03 12:30 | CONS ---
CONSULTATION This patient has been admitted with acute, chronic renal failure. I was consulted for placement of dialysis catheter. MEDICAL HISTORY: 1. History of renal failure. 2. History of hypertension. 3. Pneumonia. 4. Sleep apnea. 5. Diabetes mellitus. PERSONAL HISTORY: Allergy to PEANUTS. SOCIAL HISTORY: No history of smoking. No history of alcohol intake. PHYSICAL EXAMINATION: On examination, the patient's neck is supple. No bruit appreciated. Chest is clear to auscultation. ABDOMEN: Soft, nontender. Brachial, radial, and femoral pulses are present. PLAN: Placement of the dialysis catheter. Risks and complication of bleeding, infection, thrombosis has been discussed. MMODL / IJN: [id number] /
--- NOTE | 2017-09-03 16:00 | PN ---
PROGRESS NOTE DATE OF SERVICE: 09/03/2017 INTERVAL HISTORY: This is a 47-year-old gentleman who was admitted with chest pain also had acute renal failure. The patient has acute on chronic renal failure. Patient had dialysis hemodialysis catheter inserted on the right chest. The patient is still confused. The patient is much more alert compared to yesterday. The patient was closely monitored. Cardiology has recommended outpatient followup. PAST MEDICAL HISTORY: Reviewed. REVIEW OF SYSTEMS: Cardiovascular: No angina or palpitations. Respiratory: As mentioned earlier. GI: As mentioned earlier. : As mentioned earlier. CURRENT MEDICATIONS: 1. Tylenol 500 q.6h p.r.n. 2. [place] 5 mg q6h p.r.n. 3. Ventolin 2.5 q.6 hours p.r.n. 4. Norvasc 10 mg daily. 5. Aspirin 81 mg. 6. Alphagan 0.2% both eyes b.i.d. 7. Coreg 12.5 mg p.o. b.i.d. 8. Restasis 0.05% right eye b.i.d. 9. Vitamin D2 50,000 daily. 10.Apresoline 50 mg p.o. t.i.d. 11.Lantus 60 units subcu q.a.m. 12.Humalog AC and q.h.s. 13.Ativan 0.5 mg q.6h. 14.Reglan. 15.Mycostatin. 16.Protonix. 17.Timoptic. PHYSICAL EXAM: Patient is alert, oriented times three. Pulse 67. Blood pressure 157/70. Respiration 18, temperature 97 degrees, pulse ox 94% on room air. HEENT: Conjunctivae normal. Neck is no jugular venous distention. Cardiovascular: S1, S2 muffled. Respiration: Breath sounds diminished in the bases. No rhonchi, no crackles. ABDOMEN: Soft. Obese. Nontender. No mass palpable. Legs bilateral leg edema. Nervous system: No focal deficits. LABS: CBC within normal limits. Creatinine 6.5, glucose is 237. ASSESSMENT: 1. Renal failure. Acute on chronic, symptomatic secondary to uremia worsening. 2. Chest pain, possible unstable angina. 3. Myocardial infarction, ruled out. 4. Vomiting possible acute gastritis secondary to uremia. 5. Diabetes type 2. 6. Hypertension. 7. History of fibromyalgia. 8. History of diabetic ketoacidosis. 9. History of peripheral neuropathy diabetic secondary to diabetes type 2. 10.History of degenerative joint disease. 11.History of sleep apnea. 12.Obesity with body mass index of 44.7. RECOMMENDATIONS AND DISCUSSION: Continue current medications. Continue to monitor. Symptomatic treatment. Otherwise at this time I recommend continue with current medication, continue with symptomatic treatment. Other than that, I would recommend continue the hemodialysis. Repeat labs. Increase ambulation. Otherwise closely follow with multiple consultants. Prognosis guarded because of multiple complex medical issues and further recommendations to follow. MMODL / IJN: [id number] /
[2017-09-03 16:37] LABS: Glucose,Whole Blood 252 mg/dL (75-99)
--- NOTE | 2017-09-03 17:21 | PN ---
PROGRESS NOTE Patient is seen for followup for end-stage renal disease. He started dialysis yesterday. The patient tolerated his treatment very well. We will dialyze him today and he has an outpatient chair time at the [place] unit on a Wednesday, , Wednesday schedule. The patient states he feels slightly better. He is not complaining of abdominal pain at this time. PHYSICAL EXAMINATION: Blood pressure 147/79, heart rate 69 per minute. He is afebrile. EXAMINATION OF THE HEART: S1, S2. EXAMINATION OF LUNGS: Bilateral breath sounds are heard. Decreased breath sounds at bases. ABDOMEN: Soft, morbidly obese. Examination of lower extremities shows no significant edema. LABS: Sodium 138, potassium 4.4, hemoglobin 13.1 g/dL. ASSESSMENT: 1. End-stage renal disease, started on hemodialysis this admission. Patient had his first treatment yesterday. We will dialyze him again today and tomorrow as well. He is scheduled on a TTS schedule as outpatient. It would be okay to start on as outpatient if patient is discharged on Wednesday. He has his appointment for vein mapping to be done as outpatient on Wednesday afternoon. 2. Atypical chest pain. No further intervention from cardiology standpoint. 3. Type 2 diabetes. 4. Hypertension. PLAN: Hemodialysis today and then again in a.m.. MMEZEKIELL / JUSTINN: [id number] /
[2017-09-03] MEDS ORDERED: HEPARIN SODIUM,PORCINE 5,000 UNIT/ML 1 ML VIAL ONE (17:30)
[2017-09-03 18:32] LABS: Glucose,Whole Blood 230 mg/dL (75-99)
[2017-09-03 20:43] LABS: Glucose,Whole Blood 251 mg/dL (75-99)
[2017-09-04] MEDS: HYDROcodone/APAP 5-325MG 1 EACH TAB PO PRN (04:35)
[2017-09-04 06:19] LABS: Glucose,Whole Blood 239 mg/dL (75-99)
[2017-09-04 06:39] LABS: Basophils % (A) 0 %; CHCM 31.8; Eosinophils # (A) 0.1 k/uL (0-0.7); Eosinophils % (A) 2 %; HCT 42.9 % (39.0-53.0); HDW 2.62; HGB 13.4 gm/dL (13.0-17.5); Luc % (Auto) 2; Lymphocytes # (A) 1.8 k/uL (1.0-4.8); Lymphocytes % (A) 28 %; MCH 28.7 pg (25.0-35.0); MCHC 31.2 g/dL (31.0-37.0); MCV 91.8 fL (80.0-100.0); Mean Platelet Volume 9.5; Monocytes # (A) 0.4 k/uL (0-1.0); Monocytes % (A) 6 %; Neutrophils # (A) 4.2 k/uL (1.3-7.7); Neutrophils % (A) 63 %; RBC 4.67 m/uL (4.30-5.90); RDW 13.3 % (11.5-15.5); WBC 6.7 k/uL (3.8-10.6); WBC (Perox) 6.16
[2017-09-04] MEDS: CARVEDILOL 12.5 MG TAB PO SCH ×2 (06:59→17:07)
[2017-09-04] MEDS: INSULIN LISPRO (humaLOG) 300 UNIT/3 ML VIAL SQ SCH ×4 (06:59→20:50)
[2017-09-04 07:06] LABS: Calcium 8.5 mg/dL (8.4-10.2); Potassium 4.5 mmol/L (3.5-5.1)
[2017-09-04] MEDS: BRIMONIDINE TARTRATE 0.2% DROPS 5 ML BTL BOTH EYES SCH ×3 (07:50→20:49)
[2017-09-04] MEDS: prednisoLONE ACETATE 1% OPHTH DROPS 5 ML BTL RIGHT EYE SCH ×4 (07:50→20:49)
[2017-09-04] MEDS: INSULIN GLARGINE 100 UNIT/ML 10 ML VIAL SQ SCH (07:50)
[2017-09-04] MEDS: amLODIPine 10 MG TAB PO SCH (07:50)
[2017-09-04] MEDS: TIMOLOL 0.5% OPHTH DROPS 5 ML BTL BOTH EYES SCH ×3 (07:50→20:50)
[2017-09-04] MEDS: hydrALAZINE HCL 50 MG TAB PO SCH ×3 (07:50→20:50)
[2017-09-04] MEDS: ASPIRIN 325 MG TAB PO SCH (07:50)
[2017-09-04] MEDS: ENOXAPARIN 30 MG/0.3 ML SYRINGE SQ SCH (07:50)
[2017-09-04] MEDS: PANTOPRAZOLE 40 MG/10 ML VIAL IVP SCH (07:51)
--- NOTE | 2017-09-04 10:17 | P.PN ---
Subjective Progress Note Date: 09/04/17 (Nephrology) Principal diagnosis: End-stage renal disease Newly started dialysis on . Tolerating treatment well. Denies any chest pain shortness of breath or palpitations. Objective - Vital Signs Vital signs: Vital Signs Temp 97 F L 09/04/17 07:50 Pulse 68 09/04/17 07:50 Resp 18 09/04/17 07:50 BP 165/76 09/04/17 07:50 Pulse Ox 93 L 09/04/17 07:50 Intake & Output 09/03/17 09/04/17 09/04/17 18:59 06:59 18:59 Intake Total 780 Output Total 500 1000 Balance 280 -1000 Weight 158.757 kg 147.4 kg Intake: Oral 780 Output: Urine 500 1000 Other: Voiding Method Urinal Urinal Urinal # Voids 1 - Exam Lying in bed no acute distress HEENT no pallor cyanosis jaundice Right jugular permacath Cardiovascular S1-S2 heard Lungs bilateral air entry Trace edema - Labs CBC & Chem 7: 09/04/17 06:00 09/04/17 06:00 Labs: Abnormal Lab Results - Last 24 Hours (Table) 09/03/17 09/03/17 09/03/17 Range/Units 11:35 16:32 18:29 BUN (9-20) mg/dL Creatinine (0.66-1.25) mg/dL Glucose (74-99) mg/dL POC Glucose (mg/dL) 256 H 252 H 230 H (75-99) mg/dL 09/03/17 09/04/17 09/04/17 Range/Units 20:40 06:00 06:16 BUN 45 H (9-20) mg/dL Creatinine 6.10 H* (0.66-1.25) mg/dL Glucose 295 H (74-99) mg/dL POC Glucose (mg/dL) 251 H 239 H (75-99) mg/dL Assessment and Plan (1) End stage renal disease Status: Acute (2) Diabetes Status: Acute (3) Benign hypertension with ESRD (end-stage renal disease) Status: Acute Plan: 1. Hemodialysis third treatment today. TTS scheduled as outpatient. 2. Add Renvela for hyperphosphatemia. 3. wash worker on case for outpatient permanent dialysis placement. 4. Scheduled for vein mapping as outpatient on Wednesday. Stable from nephrology point of view to be discharged once dialysis outpatient schedule has been made, to be followed up at dialysis unit.
[2017-09-04 11:34] LABS: Glucose,Whole Blood 192 mg/dL (75-99)
[2017-09-04] MEDS: cycloSPORINE 0.05% OPHTH 0.4 ML DROPERETTE RIGHT EYE SCH ×2 (12:19→20:51)
[2017-09-04] MEDS: SEVELAMER 800 MG TAB PO SCH ×2 (12:24→17:07)
--- NOTE | 2017-09-04 13:22 | PN ---
PROGRESS NOTE Mr. Louis is a 47-year-old male with history of hypertension, history of diabetes and end-stage renal disease, who presented with symptoms of chest pain and not feeling well. He has received dialysis, feeling much better at this point, more awake and alert. He denies any symptoms of chest pain. He still has some achiness although not as bad. He denies any dizziness or palpitation. He continues to be at this time on amlodipine 10 mg daily, aspirin once a day. Coreg 12.5 mg twice a day. Hydralazine 50 mg 3 times a day. PHYSICAL EXAMINATION: Blood pressure 132/80 with a heart rate in the 60s. LUNGS: Clear. HEART: Regular rhythm S1, S2. No S3. No rub. ABDOMEN: Soft, nontender. EXTREMITIES: No edema. LAB DATA: BUN and creatinine 45 and 6.1. IMPRESSION: 1. End-stage renal disease, on hemodialysis. 2. Hypertension, controlled. 3. Episode of nonsustained ventricular tachycardia, resolved. 4. History of diabetes. RECOMMENDATION: From the cardiac standpoint the patient is stable. We will continue aspirin therapy. We will see him on as needed basis. Please feel free to call us for any questions. MMODL / IJN: [id number] /
[2017-09-04] MEDS ORDERED: HEPARIN SODIUM,PORCINE 5,000 UNIT/ML 1 ML VIAL ONE (16:00)
[2017-09-04 16:54] LABS: Glucose,Whole Blood 138 mg/dL (75-99)
--- NOTE | 2017-09-04 19:27 | PN ---
PROGRESS NOTE DATE OF SERVICE: 09/04/2017 INTERVAL HISTORY: This 47-year-old gentleman who was admitted with renal failure was started on hemodialysis. Symptomatically, the patient is slightly better. No chest pain or palpitations. No fever. EXAM: Alert and oriented x3. Pulse 66, blood pressure 130/80, respirations 16, temperature 97.4, pulse ox 100% on room air. HEENT: Conjunctivae normal. Oral mucosa moist. NECK: No jugular venous distention. No carotid bruits. No lymph node enlargement. CARDIOVASCULAR SYSTEM: S1, S2 muffled. No S3. No S4. RESPIRATORY: Breath sounds diminished in the bases. A few scattered rhonchi and crackles. ABDOMEN: Soft, nontender. LEGS: No edema. No swelling. NERVOUS SYSTEM: No focal deficits. LABS: At this time show CBC within normal limits. Creatinine is 6.10. ASSESSMENT: 1. Renal failure, acute on chronic, symptomatic secondary to uremia, status post hemodialysis, newly started through right PermCath. 2. Chest pain, possible unstable angina, improved. 3. Myocardial infarction ruled out. 4. Vomiting, possible acute gastritis secondary to uremia. 5. Diabetes mellitus type 2. 6. Hypertension. 7. History of fibromyalgia. 8. History of diabetic ketosis. 9. History of peripheral neuropathy secondary to diabetes type 2. 10.History of degenerative joint disease. 11.Sleep apnea. 12.Obesity with body mass index of 44.7. RECOMMENDATIONS AND DISCUSSION: Recommend to continue with current management, continue with symptomatic treatment. Otherwise at this time, hemodialysis has been initiated. We will continue to monitor. Repeat labs. Follow closely with multiple consultants. Guarded prognosis. Further recommendations to follow. MMODL / IJN: [id number] /
[2017-09-04 20:56] LABS: Glucose,Whole Blood 223 mg/dL (75-99)
[2017-09-05] MEDS: HYDROcodone/APAP 5-325MG 1 EACH TAB PO PRN (00:11)
[2017-09-05 06:11] LABS: Glucose,Whole Blood 259 mg/dL (75-99)
[2017-09-05 06:21] LABS: Basophils % (A) 1 %; CH 28.2; CHCM 30.5; Calcium 8.6 mg/dL (8.4-10.2); Eosinophils # (A) 0.1 k/uL (0-0.7); Eosinophils % (A) 2 %; HCT 41.8 % (39.0-53.0); HDW 2.56; HGB 12.8 gm/dL (13.0-17.5); Hypochromasia Moderate; Luc # (Auto) 0.14; Luc % (Auto) 2; Lymphocytes % (A) 33 %; MCH 28.4 pg (25.0-35.0); MCHC 30.6 g/dL (31.0-37.0); Mean Platelet Volume 9.2; Monocytes # (A) 0.4 k/uL (0-1.0); Monocytes % (A) 6 %; Neutrophils # (A) 3.5 k/uL (1.3-7.7); Neutrophils % (A) 56 %; Potassium 4.5 mmol/L (3.5-5.1); RDW 12.6 % (11.5-15.5); WBC 6.2 k/uL (3.8-10.6); WBC (Perox) 5.88
[2017-09-05] MEDS: CARVEDILOL 12.5 MG TAB PO SCH ×2 (06:37→17:01)
[2017-09-05] MEDS: SEVELAMER 800 MG TAB PO SCH ×3 (06:37→17:02)
[2017-09-05] MEDS: INSULIN LISPRO (humaLOG) 300 UNIT/3 ML VIAL SQ SCH ×5 (06:38→22:11)
[2017-09-05] MEDS: FOLIC ACID-VIT B COMPLEX-VIT C 1 CAP PO SCH (08:11)
[2017-09-05] MEDS: ASPIRIN 325 MG TAB PO SCH (08:11)
[2017-09-05] MEDS: hydrALAZINE HCL 50 MG TAB PO SCH ×3 (08:11→22:12)
[2017-09-05] MEDS: PANTOPRAZOLE 40 MG/10 ML VIAL IVP SCH (08:11)
[2017-09-05] MEDS: amLODIPine 10 MG TAB PO SCH (08:11)
[2017-09-05] MEDS: ENOXAPARIN 30 MG/0.3 ML SYRINGE SQ SCH (08:12)
[2017-09-05] MEDS: TIMOLOL 0.5% OPHTH DROPS 5 ML BTL BOTH EYES SCH ×3 (08:12→22:13)
[2017-09-05] MEDS: BRIMONIDINE TARTRATE 0.2% DROPS 5 ML BTL BOTH EYES SCH ×3 (08:12→22:12)
[2017-09-05] MEDS: prednisoLONE ACETATE 1% OPHTH DROPS 5 ML BTL RIGHT EYE SCH ×4 (08:12→22:13)
[2017-09-05] MEDS: INSULIN GLARGINE 100 UNIT/ML 10 ML VIAL SQ SCH (08:17)
--- NOTE | 2017-09-05 09:31 | P.PN ---
Subjective Progress Note Date: 09/05/17 Principal diagnosis: End-stage renal disease Sleeping this morning using a BiPAP. Tolerated dialysis well yesterday. No new acute issues Objective - Vital Signs Vital signs: Vital Signs Temp 97.3 F L 09/05/17 08:12 Pulse 76 09/05/17 08:12 Resp 18 09/05/17 08:12 BP 137/66 09/05/17 08:12 Pulse Ox 97 09/05/17 08:12 Intake & Output 09/04/17 09/05/17 09/05/17 18:59 06:59 18:59 Intake Total 480 600 Output Total 1000 Balance 480 -400 Weight 146.8 kg Intake: Oral 480 600 Output: Urine 1000 Other: Voiding Method Urinal Urinal Urinal # Voids 1 - Exam No acute distress S1 and S2 heard Right jugular PermCath Trace edema - Labs CBC & Chem 7: 09/05/17 05:37 09/05/17 05:37 Labs: Abnormal Lab Results - Last 24 Hours (Table) 09/04/17 09/04/17 09/04/17 Range/Units 11:33 16:53 20:55 Hgb (13.0-17.5) gm/dL MCHC (31.0-37.0) g/dL Plt Count (150-450) k/uL BUN (9-20) mg/dL Creatinine (0.66-1.25) mg/dL Glucose (74-99) mg/dL POC Glucose (mg/dL) 192 H 138 H 223 H (75-99) mg/dL 09/05/17 09/05/17 09/05/17 Range/Units 05:37 05:37 06:09 Hgb 12.8 L (13.0-17.5) gm/dL MCHC 30.6 L (31.0-37.0) g/dL Plt Count 144 L (150-450) k/uL BUN 48 H (9-20) mg/dL Creatinine 5.80 H* (0.66-1.25) mg/dL Glucose 288 H (74-99) mg/dL POC Glucose (mg/dL) 259 H (75-99) mg/dL Assessment and Plan Plan: Impression: #1 new start hemodialysis secondary to diabetic nephropathy and progressive CKD. Last dialysis treatment was yesterday. #2 complicated diabetes #3 hypertension with ESRD. #4 anemia with Ckd #5 metabolic bone disease #6 morbid obesity with obstructive sleep apnea on CPAP Recommendations: #1 plan hemodialysis next week, Wednesday. #2 social worker palliative care on the case for outpatient dialysis placement #3 on Renvela for hyperphosphatemia. #4 check intact PTH in the morning Once outpatient dialysis chair is available, stable from nephrology point of view to be discharged.
[2017-09-05 11:32] LABS: Glucose,Whole Blood 210 mg/dL (75-99)
[2017-09-05] MEDS: cycloSPORINE 0.05% OPHTH 0.4 ML DROPERETTE RIGHT EYE SCH ×2 (12:03→22:12)
--- NOTE | 2017-09-05 16:26 | PN ---
PROGRESS NOTE DATE OF SERVICE: 09/05/2017 This 47-year-old gentleman who was admitted with acute on chronic renal failure and chest pain, also had nonsustained tachycardia. Hemodialysis initiate. No chest pain. No palpitations. No fever. PHYSICAL EXAM: Alert and oriented x3. Pulse 66, blood pressure 172/79, respiration 18, temperature 97.4, pulse ox 97% room air. HEENT: Conjunctivae normal. NECK: No jugular venous distention. CARDIOVASCULAR: S1, S2. RESPIRATORY: Breath sounds diminished in the bases. A few scattered rhonchi. No crackles. ABDOMEN: Soft, obese, nontender. No mass palpable. LEGS: No edema, no swelling. NERVOUS SYSTEM: No focal deficits. LABS: At this time WBC 6.2, hemoglobin is 12.8, creatinine is 5.8, magnesium 2.1. ASSESSMENT: 1. Renal failure acute on chronic, symptomatic secondary to uremia status post hemodialysis newly started per right PermCath. 2. Chest pain possible unstable angina, improved, myocardial infarction ruled out. 3. Nonsustained ventricular tachycardia. 4. Vomiting, possible acute gastritis secondary to uremia. 5. Diabetes mellitus type 2. 6. Hypertension. 7. History of fibromyalgia. 8. History of diabetic ketoacidosis. 9. History of peripheral neuropathy secondary diabetes mellitus, type 2. RECOMMENDATIONS AND DISCUSSION: I recommend to continue current medications, continue to monitor, symptomatic treatment. Otherwise at this time I would recommend increase the dose of Coreg. Closely follow with Cardiology. Monitor lytes. Continue with hemodialysis. Prognosis guarded because of multiple complex medical issues. Further recommendations to follow. MMODL / IJN: [id number] /
[2017-09-05] MEDS ORDERED: DOCUSATE 100 MG CAP PO PRN (16:35)
[2017-09-05 16:54] LABS: Glucose,Whole Blood 131 mg/dL (75-99)
[2017-09-05 21:01] LABS: Glucose,Whole Blood 71 mg/dL (75-99)
[2017-09-06 05:54] LABS: Glucose,Whole Blood 93 mg/dL (75-99)
[2017-09-06] MEDS: INSULIN LISPRO (humaLOG) 300 UNIT/3 ML VIAL SQ SCH ×7 (05:57→21:04)
[2017-09-06 06:27] LABS: Basophils % (A) 0 %; CH 28.4; CHCM 31.1; Eosinophils # (A) 0.2 k/uL (0-0.7); Eosinophils % (A) 2 %; HCT 41.5 % (39.0-53.0); HDW 2.55; HGB 12.9 gm/dL (13.0-17.5); Hypochromasia Slight; Luc # (Auto) 0.15; Luc % (Auto) 2; Lymphocytes # (A) 2.2 k/uL (1.0-4.8); Lymphocytes % (A) 34 %; MCH 28.6 pg (25.0-35.0); MCHC 31.2 g/dL (31.0-37.0); MCV 91.8 fL (80.0-100.0); Mean Platelet Volume 9.1; Monocytes # (A) 0.3 k/uL (0-1.0); Monocytes % (A) 5 %; Neutrophils # (A) 3.7 k/uL (1.3-7.7); Neutrophils % (A) 56 %; RBC 4.52 m/uL (4.30-5.90); RDW 12.7 % (11.5-15.5); WBC 6.5 k/uL (3.8-10.6); WBC (Perox) 6.52
[2017-09-06 06:35] LABS: Potassium 4.1 mmol/L (3.5-5.1)
[2017-09-06] MEDS: HYDROcodone/APAP 5-325MG 1 EACH TAB PO PRN (06:40)
[2017-09-06] MEDS: CARVEDILOL 12.5 MG TAB PO SCH ×2 (06:40→17:25)
[2017-09-06] MEDS: SEVELAMER 800 MG TAB PO SCH ×3 (06:40→17:25)
[2017-09-06] MEDS: amLODIPine 10 MG TAB PO SCH (09:21)
[2017-09-06] MEDS: ENOXAPARIN 30 MG/0.3 ML SYRINGE SQ SCH (09:21)
[2017-09-06] MEDS: BRIMONIDINE TARTRATE 0.2% DROPS 5 ML BTL BOTH EYES SCH ×3 (09:21→22:26)
[2017-09-06] MEDS: ASPIRIN 325 MG TAB PO SCH (09:21)
[2017-09-06] MEDS: prednisoLONE ACETATE 1% OPHTH DROPS 5 ML BTL RIGHT EYE SCH ×4 (09:22→22:26)
[2017-09-06] MEDS: PANTOPRAZOLE 40 MG/10 ML VIAL IVP SCH (09:22)
[2017-09-06] MEDS: hydrALAZINE HCL 50 MG TAB PO SCH ×3 (09:22→22:26)
[2017-09-06] MEDS: TIMOLOL 0.5% OPHTH DROPS 5 ML BTL BOTH EYES SCH ×3 (09:22→22:26)
[2017-09-06] MEDS: INSULIN GLARGINE 100 UNIT/ML 10 ML VIAL SQ SCH (09:22)
[2017-09-06] MEDS: FOLIC ACID-VIT B COMPLEX-VIT C 1 CAP PO SCH (09:22)
[2017-09-06 09:30] VITALS: RESP 16
[2017-09-06 12:12] LABS: Glucose,Whole Blood 167 mg/dL (75-99)
[2017-09-06] MEDS: cycloSPORINE 0.05% OPHTH 0.4 ML DROPERETTE RIGHT EYE SCH ×2 (12:24→22:27)
--- NOTE | 2017-09-06 14:24 | P.PN ---
Subjective Progress Note Date: 09/06/17 Principal diagnosis: Progress note being dictated for Dr. Adler. Interval history: This is a 47-year-old gentleman admitted with acute on chronic renal failure, chest pain, nonsustained V. tach. Hemodialysis initiated this visit. Scheduled for another session of hemodialysis in a.m., vein mapping on Wednesday. Telemetry sinus rhythm., No chest pain, no palpitations. Afebrile. Objective - Vital Signs Vital signs: Vital Signs Temp 97.3 F L 09/06/17 09:20 Pulse 80 09/06/17 09:20 Resp 16 09/06/17 09:20 BP 136/76 09/06/17 09:20 Pulse Ox 97 09/06/17 09:20 Intake & Output 09/05/17 09/06/17 09/06/17 18:59 06:59 18:59 Intake Total 558 10 Balance 558 10 Intake: IV 10 .9 10 Oral 558 Other: Voiding Method Urinal Urinal Urinal # Voids 2 2 - Exam PHYSICAL EXAM: VITAL SIGNS: As above GENERAL: Sitting up in bed, no acute distress HEENT: Conjunctivae normal. eyes normal. NECK: No JVD. No thyroid enlargement. No LNs CARDIOVASCULAR: S1, S2 muffled. No murmur RESPIRATION: Breath sounds diminished in the bases. Occasional scattered rhonchi, no crackles. No bronchial breathing. ABDOMEN: Soft, nontender . No guarding. no masses palpable. No ascites, No hepatosplenomegaly.Bowel sounds heard. LEGS: No edema. no swelling PSYCHIATRY: Alert and oriented -3, mood and affect normal. NERVOUS SYSTEM: Cranial N 2-12 grossly normal. Moves all 4 limbs. No focal deficits. No sensory deficit. Skin: no ulcer no rash Joints: No active swelling. No inflammation. Lymphatic system. No LN neck axilla or groin. - Labs CBC & Chem 7: 09/06/17 05:32 09/06/17 05:32 Labs: Abnormal Lab Results - Last 24 Hours (Table) 09/05/17 09/05/17 09/06/17 Range/Units 16:50 20:48 05:32 Hgb 12.9 L (13.0-17.5) gm/dL BUN (9-20) mg/dL Creatinine (0.66-1.25) mg/dL POC Glucose (mg/dL) 131 H 71 L (75-99) mg/dL 09/06/17 09/06/17 Range/Units 05:32 11:55 Hgb (13.0-17.5) gm/dL BUN 54 H (9-20) mg/dL Creatinine 5.90 H* (0.66-1.25) mg/dL POC Glucose (mg/dL) 167 H (75-99) mg/dL Assessment and Plan Plan: 1. [ Acute on chronic renal failure, symptomatic secondary to uremia]. Status post PermCath placement with initiation of hemodialysis 2. [ Chest pain, possible unstable angina, improved]. VT ruled out 3. [ Nonsustained ventricular tachycardia]. 4. [ Acute gastritis secondary to uremia, resolved]. 5. [ Diabetes mellitus type 2]. 6. [ Hypertension]. 7. [ Peripheral neuropathy secondary to diabetes mellitus type 2]. 8. Fibromyalgia Plan: Continue on current medication regime , Coreg, monitoring and symptomatic treatment. Hemodialysis scheduled for a.m. tomorrow as per nephrology. Discharge planning in progress for tomorrow after dialysis. Case management confirming vein mapping for Wednesday and outpatient dialysis. Further recommendations to follow. The impression and plan of care has been dictated as directed as a scribe. : I performed a H&P examination of this patient and discussed the same with the dictator. I agree with the dictator's note. Any additional findings/opinions/ etc. will be noted.
--- NOTE | 2017-09-06 15:15 | PN ---
PROGRESS NOTE Patient is seen for followup for end-stage renal disease. He was started on dialysis this admission. We are awaiting discharge planning. He will be dialyzed tomorrow as inpatient. He has a chair time for Wednesday, , Wednesday schedule. PHYSICAL EXAMINATION: Blood pressure is 136/76, heart rate 80 per minute. He is afebrile. Examination of the heart S1, S2. Examination lungs, bilateral breath sounds are heard. Abdomen is morbidly obese, soft, nontender. Examination of the lower extremity shows chronic skin changes. No edema is noted. LABS: Sodium 139, potassium 4.1, hemoglobin 12.9 g/dL. ASSESSMENT: 1. End-stage renal disease, on hemodialysis, newly started this admission. Patient will be dialyzed tomorrow, etiology is diabetic kidney disease. 2. Uremia, seems to have improved. 3. Nausea and vomiting, most likely associated with uremia. 4. Hypertension, controlled. 5. Chest pain on initial admission, now resolved. PLAN: Hemodialysis in a.m. MMODL / IJN: [id number] /
[2017-09-06 15:55] LABS: Glucose,Whole Blood 64 mg/dL (75-99)
[2017-09-06 16:18] LABS: Glucose,Whole Blood 68 mg/dL (75-99)
[2017-09-06 16:37] LABS: Glucose,Whole Blood 74 mg/dL (75-99)
[2017-09-06 21:00] LABS: Glucose,Whole Blood 153 mg/dL (75-99)
[2017-09-07] MEDS: HYDROcodone/APAP 5-325MG 1 EACH TAB PO PRN ×2 (01:55→11:29)
[2017-09-07 06:59] LABS: Glucose,Whole Blood 78 mg/dL (75-99)
[2017-09-07 07:30] VITALS: BP 164/72; PULSE 60; TEMP 96.8
[2017-09-07] MEDS: INSULIN LISPRO (humaLOG) 300 UNIT/3 ML VIAL SQ SCH ×4 (07:52→12:41)
[2017-09-07] MEDS: CARVEDILOL 12.5 MG TAB PO SCH (09:16)
[2017-09-07] MEDS: INSULIN GLARGINE 100 UNIT/ML 10 ML VIAL SQ SCH (09:16)
[2017-09-07] MEDS: ENOXAPARIN 30 MG/0.3 ML SYRINGE SQ SCH ×2 (09:16→09:23)
[2017-09-07] MEDS: FOLIC ACID-VIT B COMPLEX-VIT C 1 CAP PO SCH (09:17)
[2017-09-07] MEDS: hydrALAZINE HCL 50 MG TAB PO SCH (09:17)
[2017-09-07] MEDS: ERGOCALCIFEROL 50,000 UNIT CAP PO SCH (09:17)
[2017-09-07] MEDS: SEVELAMER 800 MG TAB PO SCH ×2 (09:17→12:46)
[2017-09-07] MEDS: prednisoLONE ACETATE 1% OPHTH DROPS 5 ML BTL RIGHT EYE SCH ×2 (09:18→12:46)
[2017-09-07] MEDS: amLODIPine 10 MG TAB PO SCH (09:18)
[2017-09-07] MEDS: TIMOLOL 0.5% OPHTH DROPS 5 ML BTL BOTH EYES SCH (09:18)
[2017-09-07] MEDS: ASPIRIN 325 MG TAB PO SCH (09:18)
[2017-09-07] MEDS: cycloSPORINE 0.05% OPHTH 0.4 ML DROPERETTE RIGHT EYE SCH (09:19)
[2017-09-07] MEDS: PANTOPRAZOLE 40 MG/10 ML VIAL IVP SCH (09:19)
[2017-09-07] MEDS: BRIMONIDINE TARTRATE 0.2% DROPS 5 ML BTL BOTH EYES SCH (09:19)
[2017-09-07 12:42] LABS: Glucose,Whole Blood 73 mg/dL (75-99)
--- NOTE | 2017-09-07 17:37 | P.DS ---
Providers Date of admission: 09/01/17 00:01 Expected date of discharge: 09/07/17 Attending physician: Chapis Howard Consults: 08/31/17 23:54 Consult Physician Urgent Consulting Provider: Michelle Medeiros Consult Reason/Comments: renal failure Do you want consulting provider notified?: Yes 09/01/17 15:40 Consult Physician Urgent Consulting Provider: Ramy Tellez Consult Reason/Comments: dialysis permacath placement Do you want consulting provider notified?: Yes Primary care physician: George Cash Hospital Course: Final Diagnoses: 1. [ Acute on chronic renal failure, symptomatic secondary to uremia]. Status post PermCath placement with initiation of hemodialysis 2. [ Chest pain, possible unstable angina, improved]. NE ruled out as per cardiology. 3. [ Nonsustained ventricular tachycardia]. 4. [ Acute gastritis secondary to uremia, resolved]. 5. [ Diabetes mellitus type 2]. 6. [ Hypertension]. 7. [ Peripheral neuropathy secondary to diabetes mellitus type 2]. 8. Fibromyalgia Hospital course:This is a 47-year-old gentleman admitted with acute on chronic renal failure, chest pain, nonsustained V. tach. Evaluated by cardiology, nephrology and vascular surgery. PermCath placed. Hemodialysis initiated this visit. Cleared by all consults for discharge. Scheduled for vein mapping tomorrow and outpatient dialysis on . Patient is being discharged home in a stable condition with guarded prognosis. The impression and plan of care has been dictated as directed. : I performed a history and examination of this patient, discussed the same with the dictator. I agree with the dictator's note ,documented as a scribe. Any additional findings or plans will be noted. Patient Condition at Discharge: Stable Plan - Discharge Summary New Discharge Prescriptions: No Action amLODIPine [Norvasc] 10 mg PO DAILY #30 tab Ergocalciferol [Vitamin D2 (DRISDOL)] 50,000 unit PO TUFR Carvedilol [Coreg*] 12.5 mg PO BID Albuterol Inhaler [Ventolin Hfa Inhaler] 1 - 2 puff INHALATION RT-Q6H PRN PRN Reason: Shortness Of Breath Furosemide [Lasix] 80 mg PO BID@0900,1600 #60 tab hydrALAZINE HCL [Apresoline] 50 mg PO TID #90 tab Insulin Glargine [Lantus] 50 unit SQ QAM Insulin Glulisine [Apidra] 10 unit SQ AC-TID prednisoLONE ACETATE 1% OPHTH [Pred Forte 1%] 1 drops RIGHT EYE QID cycloSPORINE 0.05% OPHTH SOLN [Restasis] 1 applicator RIGHT EYE Q12H Discharge Medication List amLODIPine [Norvasc] 10 mg PO DAILY #30 tab 05/01/15 [Rx] Carvedilol [Coreg*] 12.5 mg PO BID 04/09/17 [History] Ergocalciferol [Vitamin D2 (DRISDOL)] 50,000 unit PO TUFR 04/09/17 [History] Albuterol Inhaler [Ventolin Hfa Inhaler] 1 - 2 puff INHALATION RT-Q6H PRN [History] Furosemide [Lasix] 80 mg PO BID@0900,1600 #60 tab 06/17/17 [Rx] hydrALAZINE HCL [Apresoline] 50 mg PO TID #90 tab 06/17/17 [Rx] Insulin Glargine [Lantus] 50 unit SQ QAM 06/21/17 [History] Insulin Glulisine [Apidra] 10 unit SQ AC-TID 07/23/17 [History] cycloSPORINE 0.05% OPHTH SOLN [Restasis] 1 applicator RIGHT EYE Q12H 07/23/17 [ History] prednisoLONE ACETATE 1% OPHTH [Pred Forte 1%] 1 drops RIGHT EYE QID 07/23/17 [ History] Follow up Appointment(s)/Referral(s): Michelle Medeiros MD [STAFF PHYSICIAN] - 1 Week (dialysis wednesday, and wednesday Pt. wants to make own appointment) Shailesh Vazquez MD [Primary Care Provider] - 3 Days (pt. wants to call and make own appointment) Ramy Tellez MD [STAFF PHYSICIAN] - 1 Week (must go prior to dialysis) Ambulatory/Diagnostic Orders: Complete Blood Count w/diff [LAB.AMB] Time Frame: 3 Days, Location: Determined By Patient Patient Instructions/Handouts: Chronic Kidney Disease (DC), Dialysis Diet (DC) , Perma-cath Placement (DC), Hemodialysis (DC) Activity/Diet/Wound Care/Special Instructions: Dr. Tellez's office [address], [facility] [phone] for Vein Mapping - scheduled for WednesdaySeptember 08 at 11:45 a.m. Patient must go to this appointment prior to starting dialysis Hemodialysis at [facility] starting , Sep 09 @6 a.m. ( arrive 30 minutes early /bring insurance information) [facility] , [address] [facility], [place] #[phone] Keep right upper chest permacath clean and dry, do not get wet Discharge Disposition: HOME SELF-CARE
== END 2017-09-07 14:20 | disposition home or self-care (01) | DRG 683 ==
LOC: EC 21:16 → 6SEL 09-01 00:01 → 4MS4W 09-06 22:12
PROVIDERS: ADMIT Internal Medicine; ATTEND Internal Medicine
PROC: 5A1D70Z Performance of Urinary Filtration, Intermittent, Less than 6 Hours Per Day (ICD-10-PCS; principal; 2017-09-02 15:15)
PROC: 05HM33Z Insertion of Infusion Device into Right Internal Jugular Vein, Percutaneous Approach (ICD-10-PCS; 2017-09-02 15:15)
DX: N17.9 Acute kidney failure, unspecified (principal); I13.2 Hypertensive heart and chronic kidney disease with heart failure and with stage 5 chronic kidney disease, or end stage renal disease; I47.2 Ventricular tachycardia; I20.0 Unstable angina; E88.89 Other specified metabolic disorders; E11.42 Type 2 diabetes mellitus with diabetic polyneuropathy; E11.22 Type 2 diabetes mellitus with diabetic chronic kidney disease; Z68.41 Body mass index [BMI] 40.0-44.9, adult; D63.1 Anemia in chronic kidney disease; N18.6 End stage renal disease; E66.01 Morbid (severe) obesity due to excess calories; E78.5 Hyperlipidemia, unspecified; E83.39 Other disorders of phosphorus metabolism; F41.9 Anxiety disorder, unspecified; G47.33 Obstructive sleep apnea (adult) (pediatric); G89.29 Other chronic pain; H40.9 Unspecified glaucoma; I50.9 Heart failure, unspecified; K29.00 Acute gastritis without bleeding; M79.7 Fibromyalgia; G56.03 Carpal tunnel syndrome, bilateral upper limbs; M51.26 Other intervertebral disc displacement, lumbar region; Z79.4 Long term (current) use of insulin; Z79.899 Other long term (current) drug therapy; Z91.19 Patient's noncompliance with other medical treatment and regimen; Z91.010 Allergy to peanuts; Z82.49 Family history of ischemic heart disease and other diseases of the circulatory system
CPT/HCPCS: 36415; 36558; 71010; 71020; 76937; 77001; 80048; 80053; 80061; 80074; 81001; 82150; 82550; 82553; 83690; 83735; 83970; 84100; 84484; 85025; 85610; 85730; 86705; 86706; 87340; 90935; 93005; 96365; 96375; 99285

== ENCOUNTER 2017-09-07 23:34 | Emergency (ER) | payer MEDICARE, OTHER ==
[2017-09-07 23:39] VITALS: BP 189/97; RESP 20; TEMP 98
[2017-09-07 23:43] VITALS: PULSE 89
--- NOTE | 2017-09-08 00:38 | ED ---
Recheck HPI - General Chief Complaint: Recheck/Abnormal Lab/Rx Stated Complaint: Post Surg Complications Time Seen by Provider: 09/07/17 23:50 Source: patient Mode of arrival: ambulatory Limitations: no limitations - History of Present Illness Initial Comments: Pt presents with mild amount of bleeding from permacath site. Pt states he was discharged from hospital earlier in the day. States 30 min ago he noticed spot of blood on his shirt. Appear to leak out of dressing. Pt states bleeding appears to have stopped since arrival to hospital. Pt denies lightheadedness, syncope, chest pain, SOB. Asymptomatic at this time. Denies blood thinner use. MD Complaint: wound re-check - Related Data Home Medications Medication Instructions Recorded Confirmed Carvedilol [Coreg*] 12.5 mg PO BID 04/09/17 09/01/17 Ergocalciferol [Vitamin D2 50,000 unit PO TUFR 04/09/17 09/01/17 (DRISDOL)] Albuterol Inhaler [Ventolin Hfa 1 - 2 puff INHALATION RT-Q6H PRN 06/16/17 Inhaler] Insulin Glargine [Lantus] 50 unit SQ QAM 06/21/17 09/01/17 Insulin Glulisine [Apidra] 10 unit SQ AC-TID 07/23/17 09/01/17 cycloSPORINE 0.05% OPHTH SOLN 1 applicator RIGHT EYE Q12H 07/23/17 09/01/17 [Restasis] prednisoLONE ACETATE 1% OPHTH 1 drops RIGHT EYE QID 07/23/17 09/01/17 [Pred Forte 1%] Previous Rx's Medication Instructions Recorded amLODIPine [Norvasc] 10 mg PO DAILY #30 tab 05/01/15 Furosemide [Lasix] 80 mg PO BID@0900,1600 #60 tab 06/17/17 hydrALAZINE HCL [Apresoline] 50 mg PO TID #90 tab 06/17/17 Allergies Allergy/AdvReac Type Severity Reaction Status Date / Time peanut Allergy Anaphylaxis Verified 09/07/17 23:38 Review of Systems ROS Statement: Those systems with pertinent positive or pertinent negative responses have been documented in the HPI. Constitutional: Denies: fever, chills, weakness Eyes: Denies: vision change ENT: Denies: epistaxis Respiratory: Denies: dyspnea Cardiovascular: Denies: chest pain, palpitations, syncope Endocrine: Denies: fatigue Gastrointestinal: Denies: abdominal pain, nausea, vomiting Genitourinary: Denies: hematuria Musculoskeletal: Denies: back pain Skin: Denies: rash Neurological: Denies: headache, weakness Hematological/Lymphatic: Denies: easy bleeding Past Medical History Past Medical History: Diabetes Mellitus, Eye Disorder, Fibromyalgia, Hypertension, Pneumonia, Renal Disease, Sleep Apnea/CPAP/BIPAP Additional Past Medical History / Comment(s): IDDM type II, DKA, neuropathy bilateral feet, obesity, chronic renal failure stage IV secondary to DM, normocytic anemia, chronic lower back and shoulders pain, herniated lumbar disk , glaucoma R eye, carpal tunnel syndrome bilaterally, bronchitis, PAULA with CPAP , folliculitis chest, abscesses to back and R groin with I&Ds. History of Any Multi-Drug Resistant Organisms: MRSA Date of last positivie culture/infection: 2012 MDRO Source:: lower back Past Surgical History: No Surgical Hx Reported Additional Past Surgical History / Comment(s): Incision and drainage back and R groin r/t abcesses removed, bilateral eye surgery for retinal repair, R eye surgery for glaucoma-has a drain in place. Past Anesthesia/Blood Transfusion Reactions: Postoperative Nausea & Vomiting ( PONV) Past Psychological History: No Psychological Hx Reported Smoking Status: Never smoker Past Alcohol Use History: None Reported Past Drug Use History: None Reported - Past Family History Father Family Medical History: Diabetes Mellitus, Hypertension Additional Family Medical History / Comment(s): Bladder cancer in father. Father at the age of 78 from bladder cancer complications. Mother Additional Family Medical History / Comment(s): Mother of brain aneurysm General Exam - General Exam Comments Initial Comments: Sitting up on side of bed, no acute distress, conversing normally. Calm, pleasant. Limitations: no limitations General appearance: alert, in no apparent distress Head exam: Present: atraumatic, normocephalic Eye exam: Present: EOMI. Absent: scleral icterus ENT exam: Present: mucous membranes moist Neck exam: Present: normal inspection, full ROM. Absent: tenderness Respiratory exam: Present: normal lung sounds bilaterally. Absent: respiratory distress, wheezes, rales Cardiovascular Exam: Present: regular rate, normal rhythm GI/Abdominal exam: Present: soft. Absent: distended, tenderness, guarding, rebound Neurological exam: Present: alert, oriented X3. Absent: altered Psychiatric exam: Present: normal affect, normal mood (Small amt dried blood on shirt & below dressing. Permacath R upper chest. Dressing removed, no active bleeding, small amt dried blood clots wiped away. Suture intact. No overlying skin changes. no hematoma. ) Course Vital Signs 09/07/17 23:37 Temperature 98.0 F Pulse Rate 89 Respiratory 20 Rate Blood Pressure 189/97 O2 Sat by Pulse 96 Oximetry Medical Decision Making - Medical Decision Making Bleeding resolved on exam. Pt agrees. No signs of significant blood loss. Pt states he has appointment with his vasc surgeon at 11am. He feels comfortable being discharged home. Thinks his seatbelt may have bumped cath causing bleeding. Instruct to avoid trauma to area. Old dressing removed under steril precautions, new steril dressing applied. Bleeding resolved. Return to ED if new or worse symptoms, including bleeding, lightheadedness, syncope, SOB, CP. Pt understands and agrees. Disposition Clinical Impression: Dialysis complication Disposition: HOME SELF-CARE Condition: Good Additional Instructions: Follow-up at your vascular surgery appointment at 11 AM this morning. Return to the ER if new or worsening symptoms including increased bleeding, lightheadedness, syncope, shortness of breath, chest pains. Referrals: Shailesh Vazquez MD [Primary Care Provider] - 1-2 days
== END 2017-09-08 00:46 | disposition home or self-care (01) ==
LOC: EC 23:34
DX: T82.49XA Other complication of vascular dialysis catheter, initial encounter (principal); E11.40 Type 2 diabetes mellitus with diabetic neuropathy, unspecified; M79.7 Fibromyalgia; E11.22 Type 2 diabetes mellitus with diabetic chronic kidney disease; I12.9 Hypertensive chronic kidney disease with stage 1 through stage 4 chronic kidney disease, or unspecified chronic kidney disease; N18.4 Chronic kidney disease, stage 4 (severe); Z99.2 Dependence on renal dialysis; Z86.14 Personal history of Methicillin resistant Staphylococcus aureus infection; Z79.4 Long term (current) use of insulin; Z79.899 Other long term (current) drug therapy; Z91.010 Allergy to peanuts; Z98.890 Other specified postprocedural states
CPT/HCPCS: 99283

== ENCOUNTER 2018-03-02 12:53 | Observation (INO) | payer MEDICARE, OTHER ==
[2018-03-02 13:14] LABS: Glucose,Whole Blood 203 mg/dL (75-99)
[2018-03-02] MEDS ORDERED: SODIUM CHLORIDE 0.9% 1,000 ML IV STA (13:29)
[2018-03-02 13:55] LABS: Basophils % (A) 1 %; Eosinophils # (A) 0.1 k/uL (0-0.7); Eosinophils % (A) 2 %; HCT 36.1 % (39.0-53.0); HGB 11.8 gm/dL (13.0-17.5); Lymphocytes # (A) 2.6 k/uL (1.0-4.8); Lymphocytes % (A) 42 %; MCH 28.5 pg (25.0-35.0); MCHC 32.6 g/dL (31.0-37.0); MCV 87.5 fL (80.0-100.0); Mean Platelet Volume 7.3; Monocytes # (A) 0.2 k/uL (0-1.0); Monocytes % (A) 4 %; Neutrophils # (A) 3.1 k/uL (1.3-7.7); Neutrophils % (A) 50 %; Platelet Count 245 k/uL (150-450); RBC 4.13 m/uL (4.30-5.90); RDW 14.7 % (11.5-15.5); WBC 6.2 k/uL (3.8-10.6)
[2018-03-02 13:56] LABS: INR 1.3 (<1.2)
[2018-03-02 14:05] LABS: Albumin 3.9 g/dL (3.5-5.0); Calcium 10.2 mg/dL (8.4-10.2); Potassium 4.6 mmol/L (3.5-5.1); Total Bilirubin 0.5 mg/dL (0.2-1.3); Total Protein 7.3 g/dL (6.3-8.2)
--- NOTE | 2018-03-02 14:20 | CT ---
EXAMINATION TYPE: CT brain wo con DATE OF EXAM: 03/02/2018 COMPARISON: 07/22/2014 HISTORY: 47-year-old male dizzy and pain TECHNIQUE: Examination was done in axial plane without intravenous contrast. Coronal and sagittal r econstructions performed. CT DLP: 1153 mGycm Automated exposure control for dose reduction was used. FINDINGS: There is no evidence of acute intracranial hemorrhage, acute ischemic changes, mass, mass-effect, or extra-axial fluid collection. There is no effacement of cerebral sulci or basal subarachnoid cister ns. There is no hydrocephalus. There is no midline shift. Urrutia-white matter distinction is preserv ed. Paranasal sinuses and mastoid air cells well pneumatized. The right globe is smaller in the interval with some type of shield along the superolateral aspect of the globe. IMPRESSION: 1. No acute intracranial abnormality seen. 2. Interval postsurgical changes to the right globe.
--- NOTE | 2018-03-02 14:31 | XR ---
EXAMINATION TYPE: XR chest 1V portable DATE OF EXAM: 03/02/2018 COMPARISON: 09/02/2017 HISTORY: Shortness of breath TECHNIQUE: Single frontal view of the chest is obtained. FINDINGS: Exam limited by technique and motion. Dialysis catheter stable. Heart size stable. No obvi ous pneumothorax or pleural effusion no definite consolidation. IMPRESSION: No definite acute process.
[2018-03-02] MEDS ORDERED: cefTRIAXone 2,000 MG in SODIUM CHLORIDE 0.9% 100 ML IVPB STA (15:12)
[2018-03-02] MEDS ORDERED: cefTRIAXone IN SWFI 2,000 MG/20 ML SYRINGE IVP STA (15:15)
[2018-03-02] MEDS ORDERED: NALOXONE 0.4 MG/ML 1 ML VIAL IV PRN (15:23)
[2018-03-02] MEDS ORDERED: ACETAMINOPHEN TAB 325 MG TAB PO PRN (15:23)
--- NOTE | 2018-03-02 15:23 | ED ---
Dizziness HPI - General Chief Complaint: Dizziness Stated Complaint: Dizzy Time Seen by Provider: 03/02/18 13:16 Source: patient Mode of arrival: wheelchair Limitations: no limitations - History of Present Illness Initial Comments: 7 years old male with history of acute renal failure presents with the dizziness shortness of breath and generalized weakness he said he was told dizzy to walk he was also very short-winded he said he was walking in the parking lot made him short winded and he stated that he felt he was confused as well as a history of diabetes sleep apnea hypertension. Denies any headaches no chest pain is short-winded when he walks no abdominal pain no frequency urgency dysuria he does have a injury to the left knee but he denies any new trauma to the left knee - Related Data Home Medications Medication Instructions Recorded Confirmed Ergocalciferol [Vitamin D2 50,000 unit PO TUFR 04/09/17 03/02/18 (DRISDOL)] Insulin Glargine [Lantus] 50 unit SQ QAM 06/21/17 03/02/18 Insulin Glulisine [Apidra] 10 unit SQ AC-TID 07/23/17 03/02/18 prednisoLONE ACETATE 1% OPHTH 1 drops RIGHT EYE QID 07/23/17 03/02/18 [Pred Forte 1%] Carvedilol [Coreg] 25 mg PO BID 03/02/18 03/02/18 HYDROcodone/APAP 10-325MG [[place] 1 tab PO Q6H PRN 03/02/18 03/02/18 10-325] Sevelamer [Renvela] 800 mg PO AC-TID 03/02/18 03/02/18 Zolpidem [Ambien] 10 mg PO HS PRN 03/02/18 03/02/18 Previous Rx's Medication Instructions Recorded amLODIPine [Norvasc] 10 mg PO DAILY #30 tab 05/01/15 hydrALAZINE HCL [Apresoline] 50 mg PO TID #90 tab 06/17/17 Allergies Allergy/AdvReac Type Severity Reaction Status Date / Time peanut Allergy Anaphylaxis Verified 03/02/18 13:57 Review of Systems ROS Statement: Those systems with pertinent positive or pertinent negative responses have been documented in the HPI. ROS Other: All systems not noted in ROS Statement are negative. Past Medical History Past Medical History: Diabetes Mellitus, Eye Disorder, Fibromyalgia, Hypertension, Pneumonia, Pulmonary Embolus (PE), Renal Disease, Sleep Apnea/CPAP /BIPAP Additional Past Medical History / Comment(s): IDDM type II, DKA, neuropathy bilateral feet, obesity, chronic renal failure stage IV secondary to DM, normocytic anemia, chronic lower back and shoulders pain, herniated lumbar disk , glaucoma R eye, carpal tunnel syndrome bilaterally, bronchitis, PAULA with CPAP , folliculitis chest, abscesses to back and R groin with I&Ds. History of Any Multi-Drug Resistant Organisms: MRSA Date of last positivie culture/infection: 2012 MDRO Source:: lower back Past Surgical History: No Surgical Hx Reported, Orthopedic Surgery Additional Past Surgical History / Comment(s): Incision and drainage back and R groin r/t abcesses removed, bilateral eye surgery for retinal repair, R eye surgery for glaucoma-has a drain in place. Past Anesthesia/Blood Transfusion Reactions: Postoperative Nausea & Vomiting ( PONV) Past Psychological History: No Psychological Hx Reported Smoking Status: Never smoker Past Alcohol Use History: None Reported Past Drug Use History: None Reported - Past Family History Father Family Medical History: Diabetes Mellitus, Hypertension Additional Family Medical History / Comment(s): Bladder cancer in father. Father at the age of 78 from bladder cancer complications. Mother Additional Family Medical History / Comment(s): Mother of brain aneurysm General Exam - General Exam Comments Initial Comments: General: The patient is awake but he falls asleep while talking to you his heart time keeping his eyes open, answers questions appropriately GCS is 15 Skin: Skin is warm and dry and no rashes or lesions are noted. Eye: Pupils are equal, round and reactive to light and the left side Ears, nose, mouth and throat: There are moist mucous membranes and no oral lesions. Neck: The neck is supple, there is no tenderness , no signs of meningitis Cardiovascular: There is a regular rate and rhythm. No murmur, rub or gallop is appreciated. Respiratory: To auscultation bilateral, no wheezing no rhonchi no distress respiratory murillo noticed Gastrointestinal: Soft, non-distended, non-tender abdomen without masses or organomegaly noted. There is no rebound or guarding present. Bowel sounds are unremarkable. Back: There is no tenderness to palpation in the midline. There is no obvious deformity. Musculoskeletal: Normal ROM, no tenderness, R leg is in a brace, no neurovascular compromise noticed Neurological: CN II-XII intact, Cranial nerves III through XII are intact. There are no obvious motor or sensory deficits. Coordination appears grossly intact. Speech is normal. Psychiatric: Cooperative, appropriate mood & affect, normal judgment. 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 Centering him being very dizzy the head CT is normal his blood pressure isn't very low side and considering him dizzy and hypotension but these can aggravate his fall chances and he also has recent injury to his left knee considering that and will put him and has a UNDER Dr. Adler service I have cultured urine and blood from some empiric antibiotics considering he is a renal failure we'll DC antibiotics his cultures come back because initially his temp was 99.9 when he came in and he be admitted to Dr. Adler service EKG Findings - EKG Comments: EKG Findings:: EKG is normal sinus rhythm ventricular rate is 81 MI interval is 170 QRS duration is 86 QT/QTc is 400/473 review of this EKG does not reveal any ST elevation or ST depression there is a slight hint of ST elevation in V2 and V3, there was compared with the old EKG and it's very similar Medical Decision Making - Lab Data Result diagrams: 03/02/18 13:20 03/02/18 13:20 Lab Results 03/02/18 03/02/1803/02/18 Range/Units 13:10 13:20 13:20 WBC 6.2 (3.8-10.6) k/uL RBC 4.13 L (4.30-5.90) m/uL Hgb 11.8 L (13.0-17.5) gm/dL Hct 36.1 L (39.0-53.0) % MCV 87.5 (80.0-100.0) fL MCH 28.5 (25.0-35.0) pg MCHC 32.6 (31.0-37.0) g/dL RDW 14.7 (11.5-15.5) % Plt Count 245 (150-450) k/uL Neutrophils % 50 % Lymphocytes % 42 % Monocytes % 4 % Eosinophils % 2 % Basophils % 1 % Neutrophils # 3.1 (1.3-7.7) k/uL Lymphocytes # 2.6 (1.0-4.8) k/uL Monocytes # 0.2 (0-1.0) k/uL Eosinophils # 0.1 (0-0.7) k/uL Basophils # 0.0 (0-0.2) k/uL PT (9.0-12.0) sec INR (<1.2) Sodium 142 (137-145) mmol/L Potassium 4.6 (3.5-5.1) mmol/L Chloride 99 (98-107) mmol/L Carbon Dioxide 27 (22-30) mmol/L Anion Gap 16 mmol/L BUN 28 H (9-20) mg/dL Creatinine 5.70 H* (0.66-1.25) mg/dL Est GFR (CKD-EPI)AfAm 13 (>60 ml/min/1.73 sqM) Est GFR (CKD-EPI)NonAf 11 (>60 ml/min/1.73 sqM) Glucose 212 H (74-99) mg/dL POC Glucose (mg/dL) 203 H (75-99) mg/dL POC Glu Crm Campaign Manager ID Darlene Wells Plasma Lactic Acid Saman (0.7-2.0) mmol/L Calcium 10.2 (8.4-10.2) mg/dL Total Bilirubin 0.5 (0.2-1.3) mg/dL AST 20 (17-59) U/L ALT 21 (21-72) U/L Alkaline Phosphatase 81 (38-126) U/L Troponin I (0.000-0.034) ng/mL Total Protein 7.3 (6.3-8.2) g/dL Albumin 3.9 (3.5-5.0) g/dL 03/02/18 03/02/18 03/02/18 Range/Units 13:20 13:20 13:20 WBC (3.8-10.6) k/uL RBC (4.30-5.90) m/uL Hgb (13.0-17.5) gm/dL Hct (39.0-53.0) % MCV (80.0-100.0) fL MCH (25.0-35.0) pg MCHC (31.0-37.0) g/dL RDW (11.5-15.5) % Plt Count (150-450) k/uL Neutrophils % % Lymphocytes % % Monocytes % % Eosinophils % % Basophils % % Neutrophils # (1.3-7.7) k/uL Lymphocytes # (1.0-4.8) k/uL Monocytes # (0-1.0) k/uL Eosinophils # (0-0.7) k/uL Basophils # (0-0.2) k/uL PT 12.0 (9.0-12.0) sec INR 1.3 H (<1.2) Sodium (137-145) mmol/L Potassium (3.5-5.1) mmol/L Chloride (98-107) mmol/L Carbon Dioxide (22-30) mmol/L Anion Gap mmol/L BUN (9-20) mg/dL Creatinine (0.66-1.25) mg/dL Est GFR (CKD-EPI)AfAm (>60 ml/min/1.73 sqM) Est GFR (CKD-EPI)NonAf (>60 ml/min/1.73 sqM) Glucose (74-99) mg/dL POC Glucose (mg/dL) (75-99) mg/dL POC Glu Crm Campaign Manager ID Plasma Lactic Acid Saman 1.5 (0.7-2.0) mmol/L Calcium (8.4-10.2) mg/dL Total Bilirubin (0.2-1.3) mg/dL AST (17-59) U/L ALT (21-72) U/L Alkaline Phosphatase (38-126) U/L Troponin I <0.012 (0.000-0.034) ng/mL Total Protein (6.3-8.2) g/dL Albumin (3.5-5.0) g/dL Disposition Clinical Impression: Dizziness, SOB (shortness of breath), Hypotension Disposition: ADMITTED IP TO THIS [facility] Condition: Good Referrals: Shailesh Vazquez MD [Primary Care Provider] - 1-2 days
[2018-03-02] MEDS ORDERED: ONDANSETRON 4 MG/2 ML VIAL IVP PRN (15:30)
[2018-03-02] MEDS ORDERED: ZOLPIDEM 10 MG TAB PO PRN (15:31)
[2018-03-02] MEDS ORDERED: HYDROcodone/APAP 10-325MG 1 EACH TAB PO PRN (15:31)
[2018-03-02 15:36] LABS: Amphetamine Screen,Urine Not Detected (NotDetected); Barbiturate Screen,Urine Not Detected (NotDetected); Benzodiazepines Screen,Urine Not Detected (NotDetected); Cocaine Screen,Urine Not Detected (NotDetected); Methadone Screen, Urine Not Detected (NotDetected); Opiate Screen,Urine Detected (NotDetected); Oxycodone Screen, Urine Not Detected (NotDetected); Phencyclidine Screen,Urine Not Detected (NotDetected); Tricyclic Antidepressant,Urine Not Detected (NotDetected); Urn Cannabinoid Scrn Not Detected (NotDetected)
[2018-03-02] MEDS ORDERED: hydrALAZINE HCL 50 MG TAB PO SCH (16:00)
[2018-03-02] MEDS ORDERED: HYDROcodone/APAP 7.5-325MG 1 EACH TAB PO PRN (16:42)
--- NOTE | 2018-03-02 16:57 | P.HPIM ---
History of Present Illness 47-year-old the male came in with the complaints of dizziness generalized weakness has not been eating well lately patient was recently diagnosed with bilateral pulmonary embolism although not on any anti-correlation anti- correlation apparently was discontinued when he was discharged from subacute rehabitation patient was discharged from subacute intimidation recently patient denied any fever chills patient is complaining of pain in the left leg where he has a cast and postoperative now and is requesting Dr. Callejas to see him. Patient denied any dysuria any cough and no chest x-ray did not show any significant abnormality. Review of Systems REVIEW OF SYSTEMS: CONSTITUTIONAL: As mentioned in HPI HEENT: No recent visual problems or hearing problems. Denied any sore throat. CARDIOVASCULAR: No chest pain, orthopnea, PND, no palpitations, no syncope. PULMONARY: No shortness of breath, no cough, no hemoptysis. GASTROINTESTINAL: No diarrhea, no nausea, no vomiting, no abdominal pain. Normoactive bowel sounds. NEUROLOGICAL: No headaches, no weakness, no numbness. HEMATOLOGICAL: Denies any bleeding or petechiae. GENITOURINARY: Denies any burning micturition, frequency, or urgency. MUSCULOSKELETAL/RHEUMATOLOGICAL: Denies any joint pain, swelling, or any muscle pain. ENDOCRINE: Denies any polyuria or polydipsia. The rest of the 14-point review of systems is negative. Past Medical History Past Medical History: Diabetes Mellitus, Eye Disorder, Fibromyalgia, Hypertension, Pneumonia, Pulmonary Embolus (PE), Renal Disease, Sleep Apnea/CPAP /BIPAP Additional Past Medical History / Comment(s): IDDM type II, DKA, neuropathy bilateral feet, obesity, chronic renal failure stage IV secondary to DM, normocytic anemia, chronic lower back and shoulders pain, herniated lumbar disk , glaucoma R eye, carpal tunnel syndrome bilaterally, bronchitis, PAULA with CPAP , folliculitis chest, abscesses to back and R groin with I&Ds. History of Any Multi-Drug Resistant Organisms: MRSA Date of last positivie culture/infection: 2012 MDRO Source:: lower back Past Surgical History: No Surgical Hx Reported, Orthopedic Surgery Additional Past Surgical History / Comment(s): Incision and drainage back and R groin r/t abcesses removed, bilateral eye surgery for retinal repair, R eye surgery for glaucoma-has a drain in place. Past Anesthesia/Blood Transfusion Reactions: Postoperative Nausea & Vomiting ( PONV) Past Psychological History: No Psychological Hx Reported Smoking Status: Never smoker Past Alcohol Use History: None Reported Past Drug Use History: None Reported - Past Family History Father Family Medical History: Diabetes Mellitus, Hypertension Additional Family Medical History / Comment(s): Bladder cancer in father. Father at the age of 78 from bladder cancer complications. Mother Additional Family Medical History / Comment(s): Mother of brain aneurysm Medications and Allergies Home Medications Medication Instructions Recorded Confirmed Type amLODIPine [Norvasc] 10 mg PO DAILY #30 tab 05/01/15 03/02/18 Rx Ergocalciferol [Vitamin D2 50,000 unit PO TUFR 04/09/17 03/02/18 History (DRISDOL)] hydrALAZINE HCL [Apresoline] 50 mg PO TID #90 tab 06/17/17 03/02/18 Rx Insulin Glargine [Lantus] 50 unit SQ QAM 06/21/17 03/02/18 History Insulin Glulisine [Apidra] 10 unit SQ AC-TID 07/23/17 03/02/18 History prednisoLONE ACETATE 1% OPHTH 1 drops RIGHT EYE QID 07/23/17 03/02/18 History [Pred Forte 1%] Carvedilol [Coreg] 25 mg PO BID 03/02/18 03/02/18 History HYDROcodone/APAP 10-325MG [[place] 1 tab PO Q6H PRN 03/02/18 03/02/18 History 10-325] Sevelamer [Renvela] 800 mg PO AC-TID 03/02/18 03/02/18 History Zolpidem [Ambien] 10 mg PO HS PRN 03/02/18 03/02/18 History Allergies Allergy/AdvReac Type Severity Reaction Status Date / Time peanut Allergy Anaphylaxis Verified 03/02/18 13:57 Physical Exam Vitals: Vital Signs Temp Pulse Pulse Resp BP BP Pulse Ox 03/02/18 15:14 98.1 F 03/02/18 14:58 92 115/59 03/02/18 14:57 64 103/59 03/02/18 14:30 87 20 113/64 99 03/02/18 13:25 78 20 120/60 100 03/02/18 12:58 99.6 F 20 129/64 100 Intake and Output 03/02/18 03/02/18 03/02/18 06:59 14:59 22:59 Other: Weight 132.903 kg PHYSICAL EXAMINATION: GENERAL: The patient is alert and oriented x3, not in any acute distress. Well developed, well nourished. Morbidly obese HEENT: Pupils are round and equally reacting to light. EOMI. No scleral icterus. No conjunctival pallor. Normocephalic, atraumatic. No pharyngeal erythema. No thyromegaly. CARDIOVASCULAR: S1 and S2 present. No murmurs, rubs, or gallops. PULMONARY: Chest is clear to auscultation, no wheezing or crackles. ABDOMEN: Soft, nontender, nondistended, normoactive bowel sounds. No palpable organomegaly. MUSCULOSKELETAL: No joint swelling or deformity. EXTREMITIES: No cyanosis, clubbing, or pedal edema. She does have a cast to the left leg NEUROLOGICAL: Gross neurological examination did not reveal any focal deficits. SKIN: No rashes. Results CBC & Chem 7: 03/02/18 13:20 03/02/18 13:20 Labs: Abnormal Lab Results - Last 24 Hours (Table) 03/02/18 03/02/18 03/02/18 Range/Units 13:10 13:20 13:20 RBC 4.13 L (4.30-5.90) m/uL Hgb 11.8 L (13.0-17.5) gm/dL Hct 36.1 L (39.0-53.0) % INR (<1.2) BUN 28 H (9-20) mg/dL Creatinine 5.70 H* (0.66-1.25) mg/dL Glucose 212 H (74-99) mg/dL POC Glucose (mg/dL) 203 H (75-99) mg/dL Urine Opiates Screen (NotDetected) 03/02/18 03/02/18 Range/Units 13:20 14:09 RBC (4.30-5.90) m/uL Hgb (13.0-17.5) gm/dL Hct (39.0-53.0) % INR 1.3 H (<1.2) BUN (9-20) mg/dL Creatinine (0.66-1.25) mg/dL Glucose (74-99) mg/dL POC Glucose (mg/dL) (75-99) mg/dL Urine Opiates Screen Detected H (NotDetected) Assessment and Plan Plan: -Dizziness and lightheadedness: Probably due to intravascular depletion due to peripheral intake patient is hypotensive and he came in hydralazine will be discontinued amlodipine will be discontinued patient is receiving gentle hydration due to his end-stage lung disease. -End-stage renal disease: hemodialysis dependent and patient's scheduled hemodialysis is tomorrow -Diabetes nephropathy Type 2 diabetes mellitus: Patient will be resumed on his insulin regimen will titrate insulin according to his blood sugars here. Metabolic bone disease: Continue with sevelamer -Patient has recent the pulmonary embolism patient is off anti-coagulation will check from [facility] if there is a reason for discontinue additional for anticoagulation. -Sleep apnea: Continue with CPAP machine
[2018-03-02 17:07] LABS: Glucose,Whole Blood 157 mg/dL (75-99)
[2018-03-02] MEDS ORDERED: CARVEDILOL 12.5 MG TAB PO SCH (17:30)
[2018-03-02] MEDS: INSULIN ASPART 100 UNIT/ML 1 ML 10 ML VIAL SQ SCH ×3 (17:39→20:38)
[2018-03-02] MEDS: SEVELAMER 800 MG TAB PO SCH (17:47)
[2018-03-02] MEDS: prednisoLONE ACETATE 1% OPHTH DROPS 5 ML BTL RIGHT EYE SCH ×2 (17:48→20:39)
[2018-03-02] MEDS: CARVEDILOL 12.5 MG TAB PO SCH (19:25)
[2018-03-02 20:35] LABS: Glucose,Whole Blood 210 mg/dL (75-99)
[2018-03-03 03:19] LABS: Hemoglobin A1C 5.6 % (4.0-6.0)
[2018-03-03 07:13] LABS: Glucose,Whole Blood 196 mg/dL (75-99)
[2018-03-03 07:31] VITALS: RESP 18; TEMP 98.5
[2018-03-03] MEDS: INSULIN ASPART 100 UNIT/ML 1 ML 10 ML VIAL SQ SCH ×6 (09:32→17:59)
[2018-03-03] MEDS: SEVELAMER 800 MG TAB PO SCH ×3 (09:33→18:01)
[2018-03-03] MEDS: prednisoLONE ACETATE 1% OPHTH DROPS 5 ML BTL RIGHT EYE SCH ×3 (09:34→18:01)
[2018-03-03] MEDS: CARVEDILOL 12.5 MG TAB PO SCH (09:34)
--- NOTE | 2018-03-03 09:54 | P.NPCON ---
History of Present Illness - Reason for Consult end stage renal disease - History of Present Illness Reason for consultation: End-stage renal disease History of present illness: Patient is a 47-year-old male seen in consultation for end-stage renal disease. He is maintained on hemodialysis on a Wednesday schedule via right chest permacath. He has a maturing left upper extremity AV fistula. Patient presented to the hospital with dizziness and lightheadedness that he experienced at a physician's office. His CT of the brain was noted to be benign. Chest x-ray was also benign. Patient was admitted at [facility] last month and was noted to have bilateral pulmonary embolus and was receiving anticoagulation. According to the patient the anticoagulation was discontinued when he left [facility] last Wednesday. His blood pressure was noted to be a little bit on the lower side at 103/59 on admission and is up to 130s now. He denies any further lightheadedness or dizziness. Denies chest pain or shortness of breath. No vomiting or diarrhea. Appetite is fair. Vital signs are stable. General: The patient appeared well nourished and normally developed. HEENT: Head exam is unremarkable. Neck is without jugular venous distension. LUNGS: Lungs are clear to auscultation and percussion. Breath sounds decreased. HEART: Rate and Rhythm are regular. First and second heart sounds normal. No murmurs, rubs or gallops. ABDOMEN: Abdominal exam reveals normal bowel sounds. Non-tender and non- distended. No evidence of peritonitis. EXTREMITITES: No clubbing, cyanosis, or edema. Past Medical History Past Medical History: Diabetes Mellitus, Eye Disorder, Fibromyalgia, Hypertension, Pneumonia, Pulmonary Embolus (PE), Renal Disease, Sleep Apnea/CPAP /BIPAP Additional Past Medical History / Comment(s): IDDM type II, DKA, neuropathy bilateral feet, obesity, chronic renal failure stage IV secondary to DM, normocytic anemia, chronic lower back and shoulders pain, herniated lumbar disk , glaucoma R eye, carpal tunnel syndrome bilaterally, bronchitis, PAULA with CPAP , folliculitis chest, abscesses to back and R groin with I&Ds. History of Any Multi-Drug Resistant Organisms: MRSA Date of last positivie culture/infection: 2012 MDRO Source:: lower back Past Surgical History: No Surgical Hx Reported, Orthopedic Surgery Additional Past Surgical History / Comment(s): Incision and drainage back and R groin r/t abcesses removed, bilateral eye surgery for retinal repair, R eye surgery for glaucoma-has a drain in place. Past Anesthesia/Blood Transfusion Reactions: Postoperative Nausea & Vomiting ( PONV) Additional Past Anesthesia/Blood Transfusion Reaction / Comment(s): pt stated has recieved blood transfusions-no known reaction. Smoking Status: Never smoker - Past Family History Father Family Medical History: Diabetes Mellitus, Hypertension Additional Family Medical History / Comment(s): Bladder cancer in father. Father at the age of 78 from bladder cancer complications. Mother Additional Family Medical History / Comment(s): Mother of brain aneurysm Medications and Allergies Home Medications Medication Instructions Recorded Confirmed Type RX: amLODIPine [Norvasc] 10 mg PO DAILY #30 tab 05/01/15 03/02/18 Rx RX: Ergocalciferol [Vitamin D2 50,000 unit PO TUFR 04/09/17 03/02/18 History (DRISDOL)] RX: hydrALAZINE HCL [Apresoline] 50 mg PO TID #90 tab 06/17/17 03/02/18 Rx RX: Insulin Glargine [Lantus] 50 unit SQ QAM 06/21/17 03/02/18 History Insulin Glulisine [Apidra] 10 unit SQ AC-TID 07/23/17 03/02/18 History prednisoLONE ACETATE 1% OPHTH 1 drops RIGHT EYE QID 07/23/17 03/02/18 History [Pred Forte 1%] Carvedilol [Coreg] 25 mg PO BID 03/02/18 03/02/18 History HYDROcodone/APAP 10-325MG [[place] 1 tab PO Q6H PRN 03/02/18 03/02/18 History 10-325] Sevelamer [Renvela] 800 mg PO AC-TID 03/02/18 03/02/18 History Zolpidem [Ambien] 10 mg PO HS PRN 03/02/18 03/02/18 History Allergies Allergy/AdvReac Type Severity Reaction Status Date / Time peanut Allergy Anaphylaxis Verified 03/02/18 13:57 Physical Exam Vitals: Vital Signs Temp Pulse Pulse Pulse Resp BP BP 03/03/18 09:30 81 141/69 03/03/18 08:23 03/03/18 07:00 98.5 F 72 18 133/63 03/02/18 23:00 98.4 F 77 16 135/73 03/02/18 19:20 79 135/64 03/02/18 17:17 98.2 F 79 16 130/75 03/02/18 15:14 98.1 F 03/02/18 14:58 92 115/59 03/02/18 14:57 64 103/59 03/02/18 14:30 87 20 113/64 03/02/18 13:25 78 20 120/60 03/02/18 12:58 99.6 F 20 129/64 Pulse Ox 03/03/18 09:30 03/03/18 08:23 96 03/03/18 07:00 96 03/02/18 23:00 99 03/02/18 19:20 03/02/18 17:17 97 03/02/18 15:14 03/02/18 14:58 03/02/18 14:57 03/02/18 14:30 99 03/02/18 13:25 100 03/02/18 12:58 100 Intake and Output 03/02/18 03/03/18 03/03/18 22:59 06:59 14:59 Intake Total 225 600 Balance 225 600 Intake: Intake, IV Titration 225 600 Amount Sodium Chloride 0.9% 1, 225 600 000 ml @ 75 mls/hr IV . [id number] STA Rx#:[id number] Other: Voiding Method Toilet # Voids 1 2 Results - Lab Results Most recent lab results Calcium 10.2 mg/dL (8.4-10.2) 03/02/18 13:20 03/02/18 13:20 03/02/18 13:20 Assessment and Plan Plan: Assessment: #1. End-stage renal disease maintained on hemodialysis on a Wednesday schedule via right chest permacath. He has a maturing left upper extremity AV fistula. #2. Dizziness and lightheadedness possibly related to hypotension. Improved. #3. History of pulmonary embolus. According to the patient the anticoagulation was discontinued this last Wednesday when he left the extended care facility. #4. Chronic kidney disease mineral bone disease maintained on Renvela. #5. Hypertension with chronic kidney disease. Controlled. #6. Insulin-dependent diabetes mellitus. Plan: Hemodialysis today with goal 1 L ultrafiltration. Check phosphorus level. Continue to hold hydralazine for systolic blood pressure less than 120. Thank you for the consultation. I will continue to follow the patient with you during his hospital stay.
[2018-03-03 09:58] LABS: Basophils % (A) 0 %; Eosinophils # (A) 0.1 k/uL (0-0.7); Eosinophils % (A) 2 %; HCT 34.2 % (39.0-53.0); HGB 10.7 gm/dL (13.0-17.5); Hypochromasia Slight; Lymphocytes # (A) 2.4 k/uL (1.0-4.8); Lymphocytes % (A) 47 %; MCHC 31.4 g/dL (31.0-37.0); MCV 89.1 fL (80.0-100.0); Mean Platelet Volume 7.1; Monocytes # (A) 0.2 k/uL (0-1.0); Monocytes % (A) 4 %; Neutrophils # (A) 2.2 k/uL (1.3-7.7); Neutrophils % (A) 44 %; Platelet Count 219 k/uL (150-450); RBC 3.84 m/uL (4.30-5.90); RDW 14.6 % (11.5-15.5)
[2018-03-03 10:17] LABS: Albumin 3.3 g/dL (3.5-5.0); Calcium 9.5 mg/dL (8.4-10.2); Phosphorus 4.4 mg/dL (2.5-4.5); Potassium 4.3 mmol/L (3.5-5.1); Total Bilirubin 0.2 mg/dL (0.2-1.3); Total Protein 6.2 g/dL (6.3-8.2)
[2018-03-03 11:16] LABS: Glucose,Whole Blood 155 mg/dL (75-99)
[2018-03-03 16:53] VITALS: BP 170/88; PULSE 78
[2018-03-03 17:14] LABS: Glucose,Whole Blood 89 mg/dL (75-99)
[2018-03-03] MEDS ORDERED: APIXABAN 5 MG TAB PO SCH (18:00)
--- NOTE | 2018-03-03 18:04 | P.DS ---
Providers Date of admission: 03/02/18 15:23 Expected date of discharge: 03/03/18 Attending physician: Devan Baumann Consults: 03/02/18 16:50 Consult Physician Routine Consulting Provider: Michelle Medeiros Consult Reason/Comments: ESRD Do you want consulting provider notified?: Yes 03/02/18 17:14 Consult Physician Routine Consulting Provider: Greg Callejas Consult Reason/Comments: LLE pain, recent surgery Do you want consulting provider notified?: Yes Primary care physician: George Cash [facility] Course: Final Diagnoses: -Dizziness and lightheadedness: Probably due to intravascular depletion due to peripheral intake patient is hypotensive and he came in hydralazine will be discontinued amlodipine will be discontinued patient is receiving gentle hydration due to his end-stage lung disease. -End-stage renal disease: hemodialysis dependent -Diabetes nephropathy Type 2 diabetes mellitus. Metabolic bone disease: Continue with sevelamer -Patient has recent pulmonary embolism patient is off anti-coagulation; anticoagulation resumed. -Sleep apnea: Continue with CPAP machine Hospital course:47-year-old the male came in with the complaints of dizziness generalized weakness has not been eating well lately patient was recently diagnosed with bilateral pulmonary embolism although not on any anticoagulation. Anticoagulation apparently was discontinued when he was discharged from subacute rehabitation recently. patient denied any fever chills patient is complaining of pain in the left leg where he has a cast and postoperative now. Evaluated by nephrology, received hemodialysis. Significant clinical improvement. Patient has been cleared by nephrology for discharge. Patient needs to follow-up with his orthopedic surgeon Shireen Guerrier as he is now experiencing footdrop of the surgical extremity.evaluated by physical therapy and cleared for discharge home. Patient is being discharged home in a stable condition with guarded prognosis. Eliquis resumed. GENERAL: The patient is alert and oriented x3, not in any acute distress. Well developed, well nourished. Morbidly obese HEENT: Pupils are round and equally reacting to light. EOMI. No scleral icterus. No conjunctival pallor. Normocephalic, atraumatic. No pharyngeal erythema. No thyromegaly. CARDIOVASCULAR: S1 and S2 present. No murmurs, rubs, or gallops. PULMONARY: Chest is clear to auscultation, no wheezing or crackles. ABDOMEN: Soft, nontender, nondistended, normoactive bowel sounds. No palpable organomegaly. MUSCULOSKELETAL: No joint swelling or deformity. EXTREMITIES: No cyanosis, clubbing, or pedal edema. She does have a cast to the left leg NEUROLOGICAL: Gross neurological examination did not reveal any focal deficits. Patient reports footdrop of surgical extremity. The impression and plan of care has been dictated as directed. : I performed a history and examination of this patient, discussed the same with the dictator. I agree with the dictator's note ,documented as a scribe. Any additional findings or plans will be noted. Time taken: 35 minutes Patient Condition at Discharge: Stable Plan - Discharge Summary Discharge Rx Participant: Yes New Discharge Prescriptions: New Apixaban [Eliquis] 5 mg PO BID #60 tab Continue Ergocalciferol [Vitamin D2 (DRISDOL)] 50,000 unit PO TUFR Insulin Glargine [Lantus] 50 unit SQ QAM Insulin Glulisine [Apidra] 10 unit SQ AC-TID prednisoLONE ACETATE 1% OPHTH [Pred Forte 1%] 1 drops RIGHT EYE QID Zolpidem [Ambien] 10 mg PO HS PRN PRN Reason: Insomnia Sevelamer [Renvela] 800 mg PO AC-TID HYDROcodone/APAP 10-325MG [[place] 10-325] 1 tab PO Q6H PRN PRN Reason: Pain Carvedilol [Coreg] 25 mg PO BID Discontinued amLODIPine [Norvasc] 10 mg PO DAILY #30 tab hydrALAZINE HCL [Apresoline] 50 mg PO TID #90 tab Discharge Medication List Ergocalciferol [Vitamin D2 (DRISDOL)] 50,000 unit PO TUFR 04/09/17 [History] Insulin Glargine [Lantus] 50 unit SQ QAM 06/21/17 [History] Insulin Glulisine [Apidra] 10 unit SQ AC-TID 07/23/17 [History] prednisoLONE ACETATE 1% OPHTH [Pred Forte 1%] 1 drops RIGHT EYE QID 07/23/17 [ History] Carvedilol [Coreg] 25 mg PO BID 03/02/18 [History] HYDROcodone/APAP 10-325MG [[place] 10-325] 1 tab PO Q6H PRN 03/02/18 [History] Sevelamer [Renvela] 800 mg PO AC-TID 03/02/18 [History] Zolpidem [Ambien] 10 mg PO HS PRN 03/02/18 [History] Apixaban [Eliquis] 5 mg PO BID #60 tab 03/03/18 [Rx] Follow up Appointment(s)/Referral(s): Justino Godoy MD [REFERRING] - 1 Week Shailesh Vazquez MD [Primary Care Provider] - 3 Days Lewis Werner DO [STAFF PHYSICIAN] - 1 Week Activity/Diet/Wound Care/Special Instructions: Hemodialysis as per nephrology Diet: Renal, consistent carb Accu-Cheks before meals and at bedtime Activity: Limited until follow up
[2018-03-04] MEDS ORDERED: ERGOCALCIFEROL 50,000 UNIT CAP PO SCH (09:00)
== END 2018-03-03 18:35 | disposition home or self-care (01) ==
LOC: EC 12:53 → 5MS5E 15:23 → INTOOBSV 15:23
PROVIDERS: ADMIT Hospitalist; ATTEND Hospitalist
DX: R42 Dizziness and giddiness (principal); I95.9 Hypotension, unspecified; N18.6 End stage renal disease; E11.22 Type 2 diabetes mellitus with diabetic chronic kidney disease; E11.21 Type 2 diabetes mellitus with diabetic nephropathy; E11.40 Type 2 diabetes mellitus with diabetic neuropathy, unspecified; I26.99 Other pulmonary embolism without acute cor pulmonale; M79.7 Fibromyalgia; G47.33 Obstructive sleep apnea (adult) (pediatric); I12.0 Hypertensive chronic kidney disease with stage 5 chronic kidney disease or end stage renal disease; N17.9 Acute kidney failure, unspecified; D64.9 Anemia, unspecified; G89.29 Other chronic pain; M25.512 Pain in left shoulder; M25.511 Pain in right shoulder; M79.605 Pain in left leg; M21.379 Foot drop, unspecified foot; E88.89 Other specified metabolic disorders; M51.26 Other intervertebral disc displacement, lumbar region; H40.9 Unspecified glaucoma; G56.03 Carpal tunnel syndrome, bilateral upper limbs; E66.01 Morbid (severe) obesity due to excess calories; Z68.38 Body mass index [BMI] 38.0-38.9, adult; Z99.2 Dependence on renal dialysis; Z99.89 Dependence on other enabling machines and devices; Z95.828 Presence of other vascular implants and grafts; Z87.01 Personal history of pneumonia (recurrent); Z86.14 Personal history of Methicillin resistant Staphylococcus aureus infection; Z87.09 Personal history of other diseases of the respiratory system; Z79.899 Other long term (current) drug therapy; Z79.4 Long term (current) use of insulin; Z91.010 Allergy to peanuts; Z80.52 Family history of malignant neoplasm of bladder; Z82.49 Family history of ischemic heart disease and other diseases of the circulatory system
CPT/HCPCS: 96374 ×2; 96375 ×2; 99285 ×2; 96361 ×5; 36415; 94760; 93005; 97535; 97165; 80053 ×2; 83605; 84100; 84484; 85025 ×2; 85610; 87340; 87040; 80306; 87086; 83036; 71045; 70450; G0378 ×3; J1644; J2405; J0696; 90935

== ENCOUNTER 2018-07-19 11:11 | Emergency (ER) | payer MEDICARE, OTHER ==
[2018-07-19 11:49] VITALS: RESP 18
--- NOTE | 2018-07-19 12:39 | ED ---
Back Pain [facility] - General Chief Complaint: Back Pain/Injury Stated Complaint: back pain Time Seen by Provider: 07/19/18 12:13 Source: patient Limitations: no limitations - History of Present Illness Initial Comments: 47-year-old male past medical history of renal disease and chronic low back pain 3 years presents today for chief complaint of worsening low back pain 2 weeks. Patient states that he is a chronic low back for the past 3 years . However for the past 2 weeks and has been increasing in the same spot localized lumbar spine as his chronic however it has been worse than normal. Patient denies any trauma, repetitive exercises or movements, fever, chills, IV drug use , recent weight loss, loss of bowel or bladder control, muscle weakness, loss sensation of lower extremities or any other symptoms. Patient denies any radiation to the lower legs. Patient is scheduled to see a pain specialist in August, he says that that was early sputum that they were able to get him. He has previously seen Dr. Steward and Dr. Conte for his low back pain. With a previous MRI in January. Patient denies any recent shortness of breath, chest pain , back pain, abdominal pain, nausea or vomiting, numbness or tingling, dysuria or hematuria, constipation or diarrhea, headaches or visual changes, or any other complaints. - Related Data Home Medications Medication Instructions Recorded Confirmed Ergocalciferol [Vitamin D2 50,000 unit PO TUFR 04/09/17 03/02/18 (DRISDOL)] Insulin Glargine [Lantus] 50 unit SQ QAM 06/21/17 03/02/18 Insulin Glulisine [Apidra] 10 unit SQ AC-TID 07/23/17 03/02/18 prednisoLONE ACETATE 1% OPHTH 1 drops RIGHT EYE QID 07/23/17 03/02/18 [Pred Forte 1%] Carvedilol [Coreg] 25 mg PO BID 03/02/18 03/02/18 HYDROcodone/APAP 10-325MG [[place] 1 tab PO Q6H PRN 03/02/18 03/02/18 10-325] Sevelamer [Renvela] 800 mg PO AC-TID 03/02/18 03/02/18 Zolpidem [Ambien] 10 mg PO HS PRN 03/02/18 03/02/18 Previous Rx's Medication Instructions Recorded Apixaban [Eliquis] 5 mg PO BID #60 tab 03/03/18 Allergies Allergy/AdvReac Type Severity Reaction Status Date / Time peanut Allergy Anaphylaxis Verified 07/19/18 11:48 Review of Systems ROS Statement: Those systems with pertinent positive or pertinent negative responses have been documented in the HPI. ROS Other: All systems not noted in ROS Statement are negative. Constitutional: Denies: fever, chills, weight change, night sweats ENT: Denies: hearing loss Respiratory: Denies: cough, dyspnea Cardiovascular: Denies: chest pain, palpitations Gastrointestinal: Denies: abdominal pain, nausea, vomiting Genitourinary: Denies: urgency, dysuria, frequency, hematuria Musculoskeletal: Reports: as per HPI, back pain Skin: Denies: rash, lesions Neurological: Denies: headache, weakness, numbness, paresthesias, confusion, abnormal gait, vertigo Past Medical History Past Medical History: Diabetes Mellitus, Eye Disorder, Fibromyalgia, Hypertension, Pneumonia, Pulmonary Embolus (PE), Renal Disease, Sleep Apnea/CPAP /BIPAP Additional Past Medical History / Comment(s): IDDM type II, DKA, neuropathy bilateral feet, obesity, chronic renal failure stage IV secondary to DM, normocytic anemia, chronic lower back and shoulders pain, herniated lumbar disk , glaucoma R eye, carpal tunnel syndrome bilaterally, bronchitis, PAULA with CPAP , folliculitis chest, abscesses to back and R groin with I&Ds. History of Any Multi-Drug Resistant Organisms: MRSA Date of last positivie culture/infection: 2012 MDRO Source:: lower back Past Surgical History: No Surgical Hx Reported, Orthopedic Surgery Additional Past Surgical History / Comment(s): Incision and drainage back and R groin r/t abcesses removed, bilateral eye surgery for retinal repair, R eye surgery for glaucoma-has a drain in place. Past Anesthesia/Blood Transfusion Reactions: Postoperative Nausea & Vomiting ( PONV) Additional Past Anesthesia/Blood Transfusion Reaction / Comment(s): pt stated has recieved blood transfusions-no known reaction. Past Psychological History: No Psychological Hx Reported Smoking Status: Never smoker Past Alcohol Use History: None Reported Past Drug Use History: None Reported - Past Family History Father Family Medical History: Diabetes Mellitus, Hypertension Additional Family Medical History / Comment(s): Bladder cancer in father. Father at the age of 78 from bladder cancer complications. Mother Additional Family Medical History / Comment(s): Mother of brain aneurysm General Exam - General Exam Comments Initial Comments: General: The patient is awake and alert, in no distress, and does not appear acutely ill. Eye: Pupils are equal, round and reactive to light, extra-ocular movements are intact. No nystagmus. There is normal conjunctiva bilaterally. No signs of icterus. Ears, nose, mouth and throat: There are moist mucous membranes and no oral lesions. Neck: The neck is supple, there is no tenderness or JVD. Cardiovascular: There is a regular rate and rhythm. No murmur, rub or gallop is appreciated. Respiratory: Lungs are clear to auscultation, respirations are non-labored, breath sounds are equal. No wheezes, stridor, rales, or rhonchi. Gastrointestinal: Soft, non-distended, non-tender abdomen without masses or organomegaly noted. There is no rebound or guarding present. No CVA tenderness. Musculoskeletal: Pt has decreased forward flexion and hyperextension of the lumbar spine secondary to pain, there is midline and paravertebral tenderness to the lumbar spine bilaterally. Patient has a residual left-sided lower extremity footdrop. However the upper left lower extremity, right lower extremity had full strength 5 out of 5. Sensation intact of the lower extremities b/l. DP and radial pulses equal bilaterally 2+. +2/5 deep tendon reflexes of the patellar and Achilles of the right LE. Straight leg raise bilaterally. Neurological: A&O x 3. CN II-XII intact, There are no obvious motor or sensory deficits. Coordination appears grossly intact. Speech is normal. Skin: Skin is warm and dry and no rashes or lesions are noted. Psychiatric: Cooperative, appropriate mood & affect, normal judgment. Limitations: no limitations Course Vital Signs 07/19/18 07/19/18 11:46 13:26 Temperature 98.3 F 98 F Pulse Rate 83 82 Respiratory 18 18 Rate Blood Pressure 128/72 117/69 O2 Sat by Pulse 100 99 Oximetry Medical Decision Making - Medical Decision Making She brought his own MRI however it was unable to be loaded into our system. Given patient's history of renal disease patient was given [place] for pain management. Physical examination was remarkable for midline paravertebral tenderness in the lumbar spine. Positive straight leg raise bilaterally. Neurological examination was unremarkable, no signs of cauda equina including saddle paresthesias/anesthesia, muscle weakness of the lower extremities or loss of sensation. X-rays lumbar spine were taken revealing degenerative disc disease L5 through S1 and L2-L3 with faucet arthropathy involving the lumbar spine. A spondylolysis at L5 is not excluded. MRI was recommended, patient shows no signs of symptoms of cauda equina or acute neurovascular compromise. Case is discussed with Dr. Kimble, at this time feel patient will benefit from outpatient orthopedic surgery follow-up for further evaluation and treatment including possible MRI. Patient agreed plan as discharge in stable condition. Prior to discharge was educated on signs of cauda equina or neurovascular compromise as told to return if the symptoms arise. Pt agreed. Disposition Clinical Impression: Chronic low back pain, Acute low back pain Disposition: HOME SELF-CARE Condition: Good Instructions: Acute Low Back Pain (ED) Additional Instructions: Please follow-up with orthopedic surgery in 1-2 days for further evaluation and treatment. Please return to emergency room if the symptoms increase or worsen or for any other concerns as discussed. Is patient prescribed a controlled substance at d/c from ED?: No Referrals: Shailesh Vazquez MD [Primary Care Provider] - 1-2 days Mikey Barajas DO [Doctor of Osteopathic Medicine] - 1-2 days Time of Disposition: 13:16
[2018-07-19] MEDS ORDERED: HYDROcodone/APAP 5-325MG 1 EACH TAB PO STA (12:51)
--- NOTE | 2018-07-19 13:11 | XR ---
EXAM TYPE: LUMBAR SPINE X RAY SERIES COMPARISON: NONE HISTORY: Pain TECHNIQUE: 4 views are submitted. FINDINGS: Alignment is anatomic. The pedicles are intact. The transverse processes are intact. There is no s pondylolisthesis. Hypertrophic spurring and degenerative disc disease L2-L3. There is facet arthropa thy at L4-5 and L5-S1. Question a spondylolysis which could be confirmed with oblique views, CT or MR I. Degenerative disc disease at L5-S1 also noted. IMPRESSION: 1. Degenerative disc disease L5-S1 and L2-L3 with facet arthropathy involving the lower lumbar spine. A spondylolysis at L5 is not excluded. Follow-up MRI recommended.
[2018-07-19 13:27] VITALS: BP 117/69; PULSE 82; TEMP 98
== END 2018-07-19 13:27 | disposition home or self-care (01) ==
LOC: EC 11:11
DX: M54.5 Low back pain (principal); G89.29 Other chronic pain; M51.37 Other intervertebral disc degeneration, lumbosacral region; M79.7 Fibromyalgia; G47.33 Obstructive sleep apnea (adult) (pediatric); Z99.89 Dependence on other enabling machines and devices; E11.40 Type 2 diabetes mellitus with diabetic neuropathy, unspecified; E11.22 Type 2 diabetes mellitus with diabetic chronic kidney disease; I12.9 Hypertensive chronic kidney disease with stage 1 through stage 4 chronic kidney disease, or unspecified chronic kidney disease; N18.4 Chronic kidney disease, stage 4 (severe); E66.9 Obesity, unspecified; Z68.38 Body mass index [BMI] 38.0-38.9, adult; H40.9 Unspecified glaucoma; Z79.4 Long term (current) use of insulin; Z86.711 Personal history of pulmonary embolism; Z79.899 Other long term (current) drug therapy; Z91.010 Allergy to peanuts
CPT/HCPCS: 72100; 99283

== ENCOUNTER → 2018-09-05 | Outpatient (CLI) | payer MEDICARE | LOC: RADMRIMAIN 09:39 | PROVIDERS: ATTEND Physical Medicine & Rehabilitation | DX: Z53.9 Procedure and treatment not carried out, unspecified reason (principal) ==

== ENCOUNTER 2018-11-13 04:21 | Inpatient (IN) | payer MEDICARE ==
[2018-11-13] MEDS ORDERED: PIPERACILLIN-TAZOBACTAM 3.375 GM in SODIUM CHLORIDE 0.9% 100 ML IVPB STA (05:21)
[2018-11-13] MEDS ORDERED: ACETAMINOPHEN TAB 500 MG TAB PO STA (05:21)
[2018-11-13] MEDS ORDERED: VANCOMYCIN IV PER PHARMACY 1 EACH MISC MISCELLANE PRN (05:21)
[2018-11-13] MEDS ORDERED: MORPHINE SULFATE 4 MG/ML SYRINGE IVP STA (05:27)
[2018-11-13] MEDS: SODIUM CHLORIDE 0.9% 500 ML 500 ML IV SCH ×3 (05:39→13:17)
[2018-11-13 05:40] LABS: Basophils % (A) 0 %; Eosinophils # (A) 0.1 k/uL (0-0.7); Eosinophils % (A) 1 %; HCT 36.6 % (39.0-53.0); HGB 12.1 gm/dL (13.0-17.5); Lymphocytes # (A) 1.5 k/uL (1.0-4.8); Lymphocytes % (A) 10 %; MCH 30.5 pg (25.0-35.0); MCHC 33.1 g/dL (31.0-37.0); MCV 92.1 fL (80.0-100.0); Mean Platelet Volume 9.3; Monocytes # (A) 0.4 k/uL (0-1.0); Monocytes % (A) 3 %; Neutrophils # (A) 12.6 k/uL (1.3-7.7); Neutrophils % (A) 85 %; Platelet Count 152 k/uL (150-450); RBC 3.97 m/uL (4.30-5.90); RDW 13.2 % (11.5-15.5); WBC 14.8 k/uL (3.8-10.6)
[2018-11-13 05:50] LABS: INR 0.9 (<1.2); Partial Thromboplastin Time 23.8 sec (22.0-30.0); Prothrombin Time 10.2 sec (9.0-12.0)
[2018-11-13 05:53] LABS: Albumin 4.2 g/dL (3.5-5.0); Calcium 8.6 mg/dL (8.4-10.2); Potassium 5.1 mmol/L (3.5-5.1); Total Bilirubin 1.2 mg/dL (0.2-1.3); Total Protein 7.3 g/dL (6.3-8.2)
[2018-11-13] MEDS ORDERED: VANCOMYCIN 2,000 MG in SODIUM CHLORIDE 0.9% 500 ML 500 ML IVPB ONE (06:00)
--- NOTE | 2018-11-13 06:01 | XR ---
EXAMINATION TYPE: XR chest 2V DATE OF EXAM: 11/13/2018 HISTORY: Fever. REFERENCE: Previous study dated 03/02/2018. FINDINGS: There is a large-bore, double-lumen catheter in place via a right internal jugular approach . Its tip is at the cavoatrial junction. The lungs remain clear. Pleural space are clear. The heart is not enlarged. IMPRESSION: NO ACUTE INTRATHORACIC ABNORMALITY.
[2018-11-13 06:21] LABS: Creatine Kinase MB 1.5 ng/mL (0.0-2.4); Troponin I 0.015 ng/mL (0.000-0.034)
[2018-11-13] MEDS ORDERED: NALOXONE 0.4 MG/ML 1 ML VIAL IV PRN (06:28)
--- NOTE | 2018-11-13 06:38 | ED ---
General Adult HPI - General Chief complaint: Abdominal Pain Stated complaint: body aches,dizziness Time Seen by Provider: 11/13/18 05:21 Source: patient Mode of arrival: wheelchair Limitations: no limitations - History of Present Illness Initial comments: Gomez is a 48-year-old -Spanish male with past medical history significant for end-stage renal disease on hemodialysis, currently his dialysis graft is clotted and he has a port in place. Patient also has a history of hypertension. Patient reports he has had bilateral flank pain since yesterday, he reports generalized malaise and feeling unwell. She reports subjective fever , chills he denies any nausea, vomiting, change in bowel or bladder habits, he still does make urine but has not noticed any dysuria or hematuria. Denies any headache, visual changes or URI symptoms. Denies any chest pain or but reports his heart is racing. - Related Data Home Medications Medication Instructions Recorded Confirmed Ergocalciferol [Vitamin D2 50,000 unit PO TUFR 04/09/17 11/13/18 (DRISDOL)] Insulin Glargine [Lantus] 50 unit SQ QAM 06/21/17 11/13/18 Insulin Glulisine [Apidra] 10 unit SQ AC-TID 07/23/17 11/13/18 Carvedilol [Coreg] 25 mg PO BID 03/02/18 11/13/18 Sevelamer [Renvela] 800 mg PO AC-TID 03/02/18 11/13/18 Cinacalcet [Sensipar] 30 mg PO DAILY 11/13/18 11/13/18 Previous Rx's Medication Instructions Recorded Apixaban [Eliquis] 5 mg PO BID #60 tab 03/03/18 Allergies Allergy/AdvReac Type Severity Reaction Status Date / Time peanut Allergy Anaphylaxis Verified 07/19/18 11:48 Review of Systems ROS Statement: Those systems with pertinent positive or pertinent negative responses have been documented in the HPI. ROS Other: All systems not noted in ROS Statement are negative. Past Medical History Past Medical History: Diabetes Mellitus, Eye Disorder, Fibromyalgia, Hypertension, Pneumonia, Pulmonary Embolus (PE), Renal Disease, Sleep Apnea/CPAP /BIPAP Additional Past Medical History / Comment(s): IDDM type II, DKA, neuropathy bilateral feet, obesity, chronic renal failure stage IV secondary to DM, normocytic anemia, chronic lower back and shoulders pain, herniated lumbar disk , glaucoma R eye, carpal tunnel syndrome bilaterally, bronchitis, PAULA with CPAP , folliculitis chest, abscesses to back and R groin with I&Ds. Left drop foot History of Any Multi-Drug Resistant Organisms: MRSA Date of last positivie culture/infection: 2012 MDRO Source:: lower back Past Surgical History: No Surgical Hx Reported, Orthopedic Surgery Additional Past Surgical History / Comment(s): Incision and drainage back and R groin r/t abcesses removed, bilateral eye surgery for retinal repair, R eye surgery for glaucoma-has a drain in place. Past Anesthesia/Blood Transfusion Reactions: Postoperative Nausea & Vomiting ( PONV) Additional Past Anesthesia/Blood Transfusion Reaction / Comment(s): pt stated has recieved blood transfusions-no known reaction. Past Psychological History: No Psychological Hx Reported Smoking Status: Never smoker Past Alcohol Use History: None Reported Past Drug Use History: None Reported - Past Family History Father Family Medical History: Diabetes Mellitus, Hypertension Additional Family Medical History / Comment(s): Bladder cancer in father. Father at the age of 78 from bladder cancer complications. Mother Additional Family Medical History / Comment(s): Mother of brain aneurysm General Exam - General Exam Comments Initial Comments: Physical Exam GENERAL: Likely ill-appearing, appears older stated age, appears uncomfortable HENT: Normocephalic, Atraumatic. EYES: PERRL, EOMI PULMONARY: Unlabored respirations. No audible rales rhonchi or wheezing was noted. CARDIOVASCULAR: Tachycardic, regular ABDOMEN: Soft and nontender with normal bowel sounds. SKIN: Skin is clear with no lesions or rashes and otherwise unremarkable. The cath in place and right upper chest : Deferred NEUROLOGIC: Patient is alert and oriented x3. Moving all extremities spontaneously MUSCULOSKELETAL: Normal extremities with adequate strength and full range of motion. No lower extremity swelling or edema. No calf tenderness. PSYCHIATRIC: Normal psychiatric evaluation. Limitations: no limitations Limitations: no limitations Course Vital Signs 11/13/18 11/13/18 04:34 06:47 Temperature 100.1 F H Pulse Rate 110 H 116 H Respiratory 24 21 Rate Blood Pressure 130/82 117/58 O2 Sat by Pulse 98 99 Oximetry EKG Findings - EKG Comments: EKG Findings:: EKG obtained at 5:05 AM, rate is 113, rhythm is sinus tachycardia , normal axis, normal intervals no acute ST elevations or depressions no significant T-wave abnormalities indicative of hyperkalemia. No evidence of acute ischemia or infarction Medical Decision Making - Medical Decision Making Patient was seen and evaluated, nursing notes reviewed, vital signs reviewed Patient febrile, tachycardic, patient has a permacath in place Sepsis workup and influenza swab were ordered Labs with leukocytosis, chronic anemia, consistent with chronic any disease, no hyperkalemia Given the patient has a permacath in place and is febrile tachycardic appears to be septic Will treat with broad-spectrum antibiotics and admit for further evaluation. Patient care was discussed with the admitting team they recommend consult to nephrology to manage dialysis as well as infectious disease. Admission orders were placed, patient was updated. - Lab Data Result diagrams: 11/13/18 05:04 11/13/18 05:04 Lab Results 11/13/18 11/13/18 11/13/18 Range/Units 05:04 05:04 05:04 WBC 14.8 H (3.8-10.6) k/uL RBC 3.97 L (4.30-5.90) m/uL Hgb 12.1 L (13.0-17.5) gm/dL Hct 36.6 L (39.0-53.0) % MCV 92.1 (80.0-100.0) fL MCH 30.5 (25.0-35.0) pg MCHC 33.1 (31.0-37.0) g/dL RDW 13.2 (11.5-15.5) % Plt Count 152 (150-450) k/uL Neutrophils % 85 % Lymphocytes % 10 % Monocytes % 3 % Eosinophils % 1 % Basophils % 0 % Neutrophils # 12.6 H (1.3-7.7) k/uL Lymphocytes # 1.5 (1.0-4.8) k/uL Monocytes # 0.4 (0-1.0) k/uL Eosinophils # 0.1 (0-0.7) k/uL Basophils # 0.0 (0-0.2) k/uL PT (9.0-12.0) sec INR (<1.2) APTT (22.0-30.0) sec Sodium 136 L (137-145) mmol/L Potassium 5.1 (3.5-5.1) mmol/L Chloride 95 L (98-107) mmol/L Carbon Dioxide 28 (22-30) mmol/L Anion Gap 13 mmol/L BUN 57 H (9-20) mg/dL Creatinine 6.84 H (0.66-1.25) mg/dL Est GFR (CKD-EPI)AfAm 10 (>60 ml/min/1.73 sqM) Est GFR (CKD-EPI)NonAf 9 (>60 ml/min/1.73 sqM) Glucose 371 H (74-99) mg/dL Plasma Lactic Acid Saman 1.2 (0.7-2.0) mmol/L Calcium 8.6 (8.4-10.2) mg/dL Total Bilirubin 1.2 (0.2-1.3) mg/dL AST 20 (17-59) U/L ALT 20 L (21-72) U/L Alkaline Phosphatase 182 H (38-126) U/L Total Creatine Kinase (55-170) U/L CK-MB (CK-2) (0.0-2.4) ng/mL CK-MB (CK-2) Rel Index Troponin I (0.000-0.034) ng/mL Total Protein 7.3 (6.3-8.2) g/dL Albumin 4.2 (3.5-5.0) g/dL Influenza Type A RNA (Not Detectd) Influenza Type B (PCR) (Not Detectd) 11/13/18 11/13/18 11/13/18 Range/Units 05:04 05:04 06:06 WBC (3.8-10.6) k/uL RBC (4.30-5.90) m/uL Hgb (13.0-17.5) gm/dL Hct (39.0-53.0) % MCV (80.0-100.0) fL MCH (25.0-35.0) pg MCHC (31.0-37.0) g/dL RDW (11.5-15.5) % Plt Count (150-450) k/uL Neutrophils % % Lymphocytes % % Monocytes % % Eosinophils % % Basophils % % Neutrophils # (1.3-7.7) k/uL Lymphocytes # (1.0-4.8) k/uL Monocytes # (0-1.0) k/uL Eosinophils # (0-0.7) k/uL Basophils # (0-0.2) k/uL PT 10.2 (9.0-12.0) sec INR 0.9 (<1.2) APTT 23.8 (22.0-30.0) sec Sodium (137-145) mmol/L Potassium (3.5-5.1) mmol/L Chloride (98-107) mmol/L Carbon Dioxide (22-30) mmol/L Anion Gap mmol/L BUN (9-20) mg/dL Creatinine (0.66-1.25) mg/dL Est GFR (CKD-EPI)AfAm (>60 ml/min/1.73 sqM) Est GFR (CKD-EPI)NonAf (>60 ml/min/1.73 sqM) Glucose (74-99) mg/dL Plasma Lactic Acid Saman (0.7-2.0) mmol/L Calcium (8.4-10.2) mg/dL Total Bilirubin (0.2-1.3) mg/dL AST (17-59) U/L ALT (21-72) U/L Alkaline Phosphatase (38-126) U/L Total Creatine Kinase 109 (55-170) U/L CK-MB (CK-2) 1.5 (0.0-2.4) ng/mL CK-MB (CK-2) Rel Index 1.4 Troponin I 0.015 (0.000-0.034) ng/mL Total Protein (6.3-8.2) g/dL Albumin (3.5-5.0) g/dL Influenza Type A RNA Not Detected (Not Detectd) Influenza Type B (PCR) Not Detected (Not Detectd) Disposition Clinical Impression: Sepsis, ESRD (end stage renal disease) Disposition: ADMITTED IP TO THIS HOSP Condition: Stable Referrals: Shailesh Vazquez MD [Primary Care Provider] - 1-2 days
[2018-11-13] MEDS ORDERED: INSULIN REGULAR 100 UNIT/ML VIAL SQ ONE (06:50)
[2018-11-13] MEDS ORDERED: HYDROmorphone 1 MG/ML 1 ML SYRINGE IVP STA (07:23)
[2018-11-13 07:28] LABS: Amorphous Sediment,Urine Rare /hpf; Appearance,Urine Clear (Clear); Bilirubin,Urine Negative (Negative); Blood,Urine Trace (Negative); Color,Urine Light Yellow; Glucose,Urine (UA) 4+ (Negative); Ketones,Urine Negative (Negative); Leukocyte Esterase,Urine Negative (Negative); Nitrite,Urine Negative (Negative); Protein,Urine 1+ (Negative); RBC,Urine 1 /hpf (0-5); Specific Gravity,Urine 1.008 (1.001-1.035); Squamous Epithelial Cell,Urine <1 /hpf (0-4); Urobilinogen,Urine <2.0 mg/dL (<2.0)
[2018-11-13 08:41] LABS: Glucose,Whole Blood 306 mg/dL (75-99)
[2018-11-13 09:31] LABS: Glucose,Whole Blood 304 mg/dL (75-99)
--- NOTE | 2018-11-13 10:01 | P.NPCON ---
History of Present Illness - Reason for Consult Consult date: 11/13/18 end stage renal disease - Chief Complaint Generalized malaise. - History of Present Illness TTS dialysis patient for 1 year at [facility] follows for Dr. Medeiros as outpatient. He came into the hospital with generalized malaise not feeling well. No nausea vomiting or diarrhea. Did not miss his dialysis treatments. He has a right jugular permacath secondary to his clotted graft. He went to dialysis on Wednesday was not feeling well. And he also had a temperature at the dialysis unit. Dialysis unit was instructed to obtain blood cultures and give a dose of vancomycin. Review of Systems Constitutional: Reports as per HPI Past Medical History Past Medical History: Diabetes Mellitus, Eye Disorder, Fibromyalgia, Hypertension, Pneumonia, Pulmonary Embolus (PE), Renal Disease, Sleep Apnea/CPAP /BIPAP Additional Past Medical History / Comment(s): IDDM type II, DKA, neuropathy bilateral feet, obesity, chronic renal failure stage IV secondary to DM, normocytic anemia, chronic lower back and shoulders pain, herniated lumbar disk , glaucoma R eye, carpal tunnel syndrome bilaterally, bronchitis, PAULA with CPAP , folliculitis chest, abscesses to back and R groin with I&Ds. Left drop foot History of Any Multi-Drug Resistant Organisms: MRSA Date of last positivie culture/infection: 2012 MDRO Source:: lower back Past Surgical History: No Surgical Hx Reported, Orthopedic Surgery Additional Past Surgical History / Comment(s): Incision and drainage back and R groin r/t abcesses removed, bilateral eye surgery for retinal repair, R eye surgery for glaucoma-has a drain in place. Past Anesthesia/Blood Transfusion Reactions: Postoperative Nausea & Vomiting ( PONV) Additional Past Anesthesia/Blood Transfusion Reaction / Comment(s): pt stated has recieved blood transfusions-no known reaction. Past Psychological History: No Psychological Hx Reported Smoking Status: Never smoker Past Alcohol Use History: None Reported Past Drug Use History: None Reported - Past Family History Father Family Medical History: Diabetes Mellitus, Hypertension Additional Family Medical History / Comment(s): Bladder cancer in father. Father at the age of 78 from bladder cancer complications. Mother Additional Family Medical History / Comment(s): Mother of brain aneurysm Medications and Allergies Home Medications Medication Instructions Recorded Confirmed Type Insulin Glargine [Lantus] 50 unit SQ QAM 06/21/17 11/13/18 History Insulin Glulisine [Apidra] 10 unit SQ AC-TID 07/23/17 11/13/18 History Carvedilol [Coreg] 25 mg PO BID 03/02/18 11/13/18 History Sevelamer [Renvela] 2,400 mg PO AC-TID 03/02/18 11/13/18 History Apixaban [Eliquis] 5 mg PO BID #60 tab 03/03/18 11/13/18 Rx Cinacalcet [Sensipar] 30 mg PO DAILY 11/13/18 11/13/18 History Furosemide [Lasix] 60 mg PO BID 11/13/18 11/13/18 History Losartan Potassium 50 mg PO DAILY 11/13/18 11/13/18 History Allergies Allergy/AdvReac Type Severity Reaction Status Date / Time peanut Allergy Anaphylaxis Verified 11/13/18 08:02 Physical Exam Vitals: Vital Signs Temp Pulse Resp BP Pulse Ox 11/13/18 08:46 100 F H 106 H 20 112/58 97 11/13/18 06:47 116 H 21 117/58 99 11/13/18 04:34 100.1 F H 110 H 24 130/82 98 Intake and Output 11/12/18 11/13/18 11/13/18 22:59 06:59 14:59 Other: Weight 131.542 kg No acute distress S1-S2 heard Lungs clear Right jugular permacath No edema Results - Lab Results Most recent lab results Calcium 8.6 mg/dL (8.4-10.2) 11/13/18 05:04 11/13/18 05:04 11/13/18 05:04 Assessment and Plan Assessment: #1 generalized mellitus with temperature at the dialysis unit to rule out sepsis related to permacath infection. #2 ESRD on hemodialysis at [facility] suspect diabetes and hypertensive nephrosclerosis #3 hypertension with ESRD #4 diabetes #5 CKD with metabolic bone disease #6 anemia with end-stage renal disease Plan: #1 currently on antibiotics with vancomycin and Zosyn. #2 follow-up on the blood culture results from the dialysis unit #3 plan hemodialysis on Wednesday as per outpatient schedule. #4 ESRD medications
[2018-11-13] MEDS ORDERED: INSULIN DETEMIR 100 UNIT/ML 10 ML VIAL SQ SCH (11:00)
[2018-11-13] MEDS: APIXABAN 5 MG TAB PO SCH ×2 (11:27→21:08)
[2018-11-13] MEDS: SODIUM CHLORIDE 0.9% 1,000 ML IV SCH ×3 (11:33→22:30)
[2018-11-13 12:17] LABS: Glucose,Whole Blood 198 mg/dL (75-99)
[2018-11-13] MEDS: INSULIN ASPART 100 UNIT/ML 1 ML 10 ML VIAL SQ SCH ×6 (12:41→22:02)
[2018-11-13] MEDS: CINACALCET 30 MG TAB PO SCH (12:56)
[2018-11-13] MEDS: HYDROcodone/APAP 5-325MG 1 EACH TAB PO PRN (13:44)
[2018-11-13] MEDS: HYDROmorphone 1 MG/ML 1 ML SYRINGE IVP PRN (14:21)
[2018-11-13] MEDS: SEVELAMER 800 MG TAB PO SCH ×2 (15:57→18:00)
[2018-11-13] MEDS ORDERED: INSULIN GLULISINE 10 UNIT SQ SCH (17:30)
[2018-11-13 17:41] LABS: Glucose,Whole Blood 103 mg/dL (75-99)
[2018-11-13] MEDS: CARVEDILOL 12.5 MG TAB PO SCH (18:00)
--- NOTE | 2018-11-13 19:26 | HP ---
HISTORY AND PHYSICAL DATE OF SERVICE: 11/13/2018 CHIEF COMPLAINT: Abdominal pain, body aches, dizziness. HISTORY OF PRESENT ILLNESS: This 48-year-old gentleman with a past medical history of multiple medical problems including history of diabetes, history of fibromyalgia, hypertension, history of pneumonia, pulmonary embolus, sleep apnea, history of diabetic neuropathy, history of chronic kidney disease stage 4, secondary to diabetes mellitus type 2, being followed by Dr. Vazquez in the outpatient setting was on hemodialysis. Currently the dialysis graft is clotted and he has got a port in place. The patient has also had history of hypertension. The patient also complaining of bilateral flank pain since yesterday. The patient also had been complaining of back pain over the back and also neck also, which is rather chronic with some acute exacerbation. The patient also has subjective fevers and chills and some nausea, vomiting, and the patient came to [facility] and admitted for further evaluation and treatment. Initial labs showed elevated white count is 14.8. Empiric antibiotics were given. The patient is on IV vancomycin. The cultures are being obtained. Nephrology has been consulted. We will monitor the patient closely. Closely monitored in ICU and infectious disease also being consulted at this time. PAST MEDICAL HISTORY: Diabetes type 2, fibromyalgia, hypertension, pneumonia, pulmonary embolism, renal disease, sleep apnea. MEDICATIONS ARE: Home medications are reviewed and include: 1. Renvela 2.4 g p.o. a.c. t.i.d. 2. Losartan 50 mg t.i.d. 3. Lasix 60 mg p.o. daily. 4. Apidra 10 units subcu a.c. t.i.d. 5. Lantus 50 units subcu q.a.m. 6. Sensipar 30 mg p.o. daily. 7. Coreg 25 mg p.o. daily. 8. Celexa 5 mg p.o. b.i.d. ALLERGIES: PEANUTS. FAMILY HISTORY: History of diabetes, hypertension, bladder cancer in the family. SOCIAL HISTORY: No history of smoking. No history of alcohol intake. REVIEW OF SYSTEMS: ENT: No diminished vision or hearing. CARDIOVASCULAR: No angina or palpitations. RESPIRATION: No cough. GI: As mentioned earlier. : As mentioned earlier. CENTRAL NERVOUS SYSTEM: As mentioned earlier. ALLERGY/IMMUNOLOGY: No asthma or hayfever. MUSCULOSKELETAL: As mentioned earlier. HEMATOLOGY/ONCOLOGY: No history of anemia. ENDOCRINE: History of diabetes. CONSTITUTIONAL: As mentioned earlier. Dermatology: Negative. Rheumatology: Negative. Psychiatry: As mentioned earlier. PHYSICAL EXAMINATION: GENERAL: The patient is alert and oriented times three. VITAL SIGNS: Pulse is 105, blood pressure 140/82, respiration 12, temperature 99.4, pulse ox 99% on room air. HEENT: Oral mucosa moist. NECK is no jugular venous distention. No carotid bruit. No thyroid enlargement. CARDIOVASCULAR SYSTEM: S1, S2 muffled. RESPIRATION: Breath sounds diminished in the bases. A few scattered rhonchi and crackles. ABDOMEN is soft, nontender. No mass palpable. LEGS: No edema. No swelling. NERVOUS SYSTEM: Higher functions as mentioned earlier. Moves all four extremities. No focal deficits. LYMPHATICS: No lymph nodes palpable in the neck, axillae or groin. SKIN: No ulcer, rash or bleeding. LABS: WBC 14.3, hemoglobin 12.1, sodium 136, creatinine 6.84. Other labs, UA noted. Influenza negative. Chest x-ray which was personally reviewed by me showed no acute abnormality. ASSESSMENT: 1. Fever, back pain, possible sepsis. 2. Diabetes type 2. 3. Chronic renal failure stage 4 on hemodialysis fibromyalgia. 4. Hypertension. 5. History of chronic pain syndrome. 6. Pneumonia. 7. History of pulmonary embolus. 8. History of renal disease. 9. Sleep apnea. 10.History of neuropathy. 11.History of degenerative joint disease. 12.History of glaucoma. 14.History of MRSA. RECOMMENDATIONS AND DISCUSSION: In this 48-year-old gentleman who presented with multiple complex medical issues , we will monitor the patient closely, continue the current medications, continue symptomatic treatment. We will initiate broad-spectrum IV antibiotics. Infectious Disease, cultures, continue the rest of medications and I would also recommend sed rate and CRP also. We will provide symptomatic treatment for now. The white count is slightly elevated. Repeat labs have been ordered. I would also recommend MRI of the cervical and thoracic spine and lumbosacral spine also. Guarded prognosis because of multiple complex medical problems. Further recommendations to follow. See orders for further details. Monitor blood sugars closely. MMODL / IJN: [id number] / [facility]
[2018-11-13] MEDS: FUROSEMIDE 20 MG TAB PO SCH (21:08)
[2018-11-13 21:19] LABS: Glucose,Whole Blood 166 mg/dL (75-99)
[2018-11-14 02:16] LABS: Glucose,Whole Blood 101 mg/dL (75-99)
[2018-11-14] MEDS: INSULIN ASPART 100 UNIT/ML 1 ML 10 ML VIAL SQ SCH ×8 (04:25→22:38)
[2018-11-14] MEDS: HYDROmorphone 1 MG/ML 1 ML SYRINGE IVP PRN (05:27)
[2018-11-14 05:55] LABS: Basophils % (A) 0 %; Eosinophils % (A) 0 %; HCT 31.1 % (39.0-53.0); Lymphocytes # (A) 1.9 k/uL (1.0-4.8); Lymphocytes % (A) 13 %; MCHC 32.2 g/dL (31.0-37.0); MCV 93.1 fL (80.0-100.0); Mean Platelet Volume 8.8; Monocytes # (A) 0.6 k/uL (0-1.0); Monocytes % (A) 4 %; Neutrophils # (A) 11.6 k/uL (1.3-7.7); Neutrophils % (A) 81 %; Platelet Count 120 k/uL (150-450); RBC 3.34 m/uL (4.30-5.90); RDW 13.3 % (11.5-15.5); WBC 14.3 k/uL (3.8-10.6)
[2018-11-14 06:22] LABS: Calcium 7.9 mg/dL (8.4-10.2); Potassium 4.5 mmol/L (3.5-5.1)
[2018-11-14] MEDS: SODIUM CHLORIDE 0.9% 1,000 ML IV SCH (06:22)
[2018-11-14 07:08] LABS: Glucose,Whole Blood 101 mg/dL (75-99)
[2018-11-14] MEDS: CARVEDILOL 12.5 MG TAB PO SCH ×2 (07:13→17:41)
[2018-11-14] MEDS: SEVELAMER 800 MG TAB PO SCH ×3 (07:14→17:41)
[2018-11-14] MEDS: SODIUM CHLORIDE 0.9% 500 ML 500 ML IV SCH ×2 (08:34→22:38)
[2018-11-14 08:40] LABS: Erythrocyte Sedimentation Rate 53 mm/hr (0-15)
--- NOTE | 2018-11-14 09:01 | P.PN ---
Subjective Patient is seen in follow-up for end-stage renal disease. He is maintained on hemodialysis on a Wednesday schedule. Right chest permacath. He has a clotted left upper extremity AV graft. Patient states that dialysis catheter has been in place since August 2017. His blood culture positive for group B strep. Denies chest pain or shortness of breath. No cough. No vomiting or diarrhea. Vital signs are stable. General: The patient appeared well nourished and normally developed. HEENT: Head exam is unremarkable. Neck is without jugular venous distension. LUNGS: Lungs are clear to auscultation and percussion. Breath sounds decreased. HEART: Rate and Rhythm are regular. First and second heart sounds normal. No murmurs, rubs or gallops. ABDOMEN: Abdominal exam reveals normal bowel sounds. Non-tender and non- distended. No evidence of peritonitis. EXTREMITITES: No clubbing, cyanosis, or edema. Objective - Vital Signs Vital signs: Vital Signs Temp 99.2 F 11/14/18 06:00 Pulse 93 11/14/18 07:00 Resp 6 L 11/14/18 07:00 BP 133/84 11/14/18 07:00 Pulse Ox 98 11/14/18 07:00 Intake & Output 11/13/18 11/14/18 11/14/18 18:59 06:59 18:59 Intake Total 1345 1600 100 Output Total 475 800 Balance 870 800 100 Weight 131.542 kg 136 kg Intake: IV 1500 100 Sodium Chloride 0.9% 1, 1500 100 000 ml @ 125 mls/hr IV . Q8H LORI Rx#:[id number] Intake, IV Titration 1125 100 Amount Sodium Chloride 0.9% 1, 625 000 ml @ 125 mls/hr IV . Q8H LORI Rx#:[id number] Vancomycin 2,000 mg In 500 Sodium Chloride 0.9% 500 ml 500 ml @ 167 mls/hr IVPB ONCE ONE Rx#: [id number] cefTRIAXone 1,000 mg In 100 Sodium Chloride 0.9% 50 ml @ 100 mls/hr IVPB Q24H LORI Rx#:[id number] Oral 220 Output: Urine 475 800 Other: Voiding Method Urinal Urinal - Labs CBC & Chem 7: 11/14/18 04:50 11/14/18 04:50 Labs: Abnormal Lab Results - Last 24 Hours (Table) 11/13/18 11/13/18 11/13/18 Range/Units 09:20 12:05 17:29 WBC (3.8-10.6) k/uL RBC (4.30-5.90) m/uL Hgb (13.0-17.5) gm/dL Hct (39.0-53.0) % Plt Count (150-450) k/uL Neutrophils # (1.3-7.7) k/uL ESR (0-15) mm/hr BUN (9-20) mg/dL Creatinine (0.66-1.25) mg/dL Glucose (74-99) mg/dL POC Glucose (mg/dL) 304 H 198 H 103 H (75-99) mg/dL Calcium (8.4-10.2) mg/dL 11/13/18 11/14/18 11/14/18 Range/Units 21:07 02:11 04:50 WBC 14.3 H (3.8-10.6) k/uL RBC 3.34 L (4.30-5.90) m/uL Hgb 10.0 L D (13.0-17.5) gm/dL Hct 31.1 L (39.0-53.0) % Plt Count 120 L (150-450) k/uL Neutrophils # 11.6 H (1.3-7.7) k/uL ESR 53 H (0-15) mm/hr BUN (9-20) mg/dL Creatinine (0.66-1.25) mg/dL Glucose (74-99) mg/dL POC Glucose (mg/dL) 166 H 101 H (75-99) mg/dL Calcium (8.4-10.2) mg/dL 11/14/18 11/14/18 Range/Units 04:50 06:57 WBC (3.8-10.6) k/uL RBC (4.30-5.90) m/uL Hgb (13.0-17.5) gm/dL Hct (39.0-53.0) % Plt Count (150-450) k/uL Neutrophils # (1.3-7.7) k/uL ESR (0-15) mm/hr BUN 67 H (9-20) mg/dL Creatinine 7.39 H* (0.66-1.25) mg/dL Glucose 102 H (74-99) mg/dL POC Glucose (mg/dL) 101 H (75-99) mg/dL Calcium 7.9 L (8.4-10.2) mg/dL Microbiology - Last 24 Hours (Table) 11/13/18 05:04 Blood Culture Gram Stain - Preliminary Blood Blood Culture - Preliminary Strep agalactiae - (group b) 11/13/18 05:04 Blood Culture - Final Blood 11/13/18 06:47 Urine Culture - Preliminary Urine,Voided Assessment and Plan Plan: Assessment: 1. End-stage renal disease maintained on hemodialysis on a Wednesday schedule via right chest permacath. He has a clotted left upper extremity AV graft. 2. Group B strep bacteremia. Catheter is a potential and concerning source for infection. 3. Hypertension with chronic kidney disease. Controlled. 4. Anemia of chronic disease. Hemoglobin at goal. 5. Insulin-dependent diabetes mellitus. 6. Chronic kidney disease mineral bone disease maintained on Sensipar and Renvela. Plan: Hemodialysis tomorrow. Check cultures from dialysis catheter. Await infectious disease recommendations. If catheter is the source of infection, then it will be removed after his next dialysis treatment and a new catheter will need to be placed in 2-3 days as the infection clears. Monitor vancomycin levels. Target level 15.
[2018-11-14] MEDS: FOLIC ACID-VIT B COMPLEX-VIT C 1 CAP PO SCH (09:16)
[2018-11-14] MEDS: CINACALCET 30 MG TAB PO SCH (09:16)
[2018-11-14] MEDS: FUROSEMIDE 20 MG TAB PO SCH ×2 (09:16→22:36)
[2018-11-14] MEDS: INSULIN DETEMIR 100 UNIT/ML 10 ML VIAL SQ SCH (09:17)
[2018-11-14] MEDS: LOSARTAN 50 MG TAB PO SCH (09:17)
[2018-11-14 09:26] LABS: Phosphorus 4.1 mg/dL (2.5-4.5)
[2018-11-14] MEDS: APIXABAN 5 MG TAB PO SCH ×2 (11:45→22:36)
[2018-11-14 12:00] LABS: Glucose,Whole Blood 108 mg/dL (75-99)
[2018-11-14 13:10] LABS: Hemoglobin A1C 13.2 % (4.0-6.0)
[2018-11-14] MEDS ORDERED: VANCOMYCIN 2,000 MG in SODIUM CHLORIDE 0.9% 500 ML 500 ML IVPB ONE (14:00)
[2018-11-14 14:52] VITALS: BMI 39.5
[2018-11-14 17:50] LABS: Glucose,Whole Blood 93 mg/dL (75-99)
[2018-11-14 21:01] LABS: Glucose,Whole Blood 135 mg/dL (75-99)
[2018-11-14] MEDS: cefTRIAXone 2,000 MG in SODIUM CHLORIDE 0.9% 100 ML IVPB SCH (22:37)
--- NOTE | 2018-11-14 23:40 | CONS ---
CONSULTATION DATE OF SERVICE: 11/14/2018 REASON FOR CONSULTATION: Fever and bacteremia. HISTORY OF PRESENT ILLNESS: The patient is a 48-year-old -[place] male with a past medical history significant for end-stage renal disease, on hemodialysis Wednesday, , Wednesday through a right IJ Permacath. The patient apparently presented to the dialysis unit on Wednesday, where he complained of not feeding well. Apparently the patient did have a fever during the dialysis, at which time blood cultures were obtained and the patient was directed to go to the [facility] ER. The patient had been complaining of feeling not well for the last few days. The patient denies having any headache or URI symptoms. No chest pain. No shortness of breath. Very minimal cough. Denies any abdominal pain. No diarrhea or burning or frequency of urine. No pain at the right IJ catheter site. On arrival in the ER the patient did have a fever of 100.1. He had elevated white count of 14.3. The patient had a chest x-ray that was reported negative for any acute infiltrate. Urine was negative. The patient's influenza serology was negative. The patient was started on vancomycin, Pharmacy to dose. He did have blood cultures drawn, which are coming back positive with Streptococcus agalactiae. Infectious Disease was consulted for further recommendations regarding antibiotic therapy. REVIEW OF SYSTEMS: Positive points have been mentioned in the HPI. Rest of systems has been negative. PAST MEDICAL HISTORY: 1. Diabetes mellitus. 2. Fibromyalgia. 3. Hypertension. 4. Pneumonia. 5. Pulmonary embolism. 6. End-stage renal disease. 7. Sleep apnea. 8. Previous history of MRSA. 9. Lower back infection. PAST SURGICAL HISTORY: 1. Incision and drainage of the back and right groin abscess. 2. Bilateral eye surgery. 3. Retinal repair. SOCIAL HISTORY: Denies smoking, drinking or drug use. FAMILY HISTORY: Father has diabetes and hypertension. He at the age of 78 from bladder cancer complication. Mother from brain aneurysm. ALLERGIES: PEANUTS. MEDICATION: Current medications include: 1. Rocephin 1 gram daily. 2. Eliquis. 3. Coreg. 4. Vancomycin, Pharmacy to dose. 5. Lasix. 6. Dilaudid. 7. NovoLog. 8. Levemir. 9. Cozaar. 10.Nephrocaps. PHYSICAL EXAMINATION: Blood pressure is 120/66 with a pulse of 84, temperature 98.9, T-max 100. He is 97% on room air. General description is a middle-aged male up in the chair in no distress with no tachypnea or accessory muscle of respiration use. HEENT examination shows pallor. No scleral icterus. Oral mucosa membrane is dry. No pharyngeal erythema or thrush. NECK: Trachea is central. No thyromegaly. LUNGS: Unlabored breathing. Clear to auscultation anteriorly. No wheeze or crackle. HEART: S1, S2. Regular rate and rhythm. No added sound. ABDOMEN: Soft. No tenderness. No guarding or rigidity. EXTREMITIES: No edema of feet. SKIN EXAMINATION: No rash or mass palpable. Neurologically the patient is awake, alert, oriented x3. Mood and affect normal. LABS: Hemoglobin is 10, white count 14.3, BUN of 67, creatinine 7.39. Electrolytes have been normal. Urine has been negative. Influenza serology was negative. Blood culture with Streptococcus agalactiae. DIAGNOSTIC IMPRESSION AND PLAN: Patient presented to hospital with a fever, not feeling well and this patient did have evidence of bacteremia with Streptococcus agalactiae, which could be either of skin or respiratory tract origin in this patient currently with mild respiratory symptoms. However, chest x-ray was negative for any acute infiltrate. Urine has been negative. No evidence of any cellulitis or joint swelling. Source could be the PermCath, which has been there for about a year, as one more clinical focus of infection. PLAN: 1. We will keep the patient on Rocephin increase the dose to 2 grams daily and discontinue the vancomycin. 2. Blood culture will be repeated from the PermCath dialysis. If there is no evidence of any persistent bacteremia, there is no need to remove PermCath at this point, as this can be easily treated with antibiotic therapy in the outpatient setting. Thank you for this consultation. Will follow this patient along with you. MMODL / IJN: [id number] /
[2018-11-15 02:32] LABS: Glucose,Whole Blood 107 mg/dL (75-99)
[2018-11-15] MEDS: HYDROcodone/APAP 5-325MG 1 EACH TAB PO PRN (02:53)
[2018-11-15 05:32] LABS: Basophils % (A) 0 %; Eosinophils # (A) 0.1 k/uL (0-0.7); Eosinophils % (A) 1 %; HCT 30.9 % (39.0-53.0); HGB 9.8 gm/dL (13.0-17.5); Hypochromasia Slight; Lymphocytes # (A) 2.3 k/uL (1.0-4.8); Lymphocytes % (A) 27 %; MCHC 31.7 g/dL (31.0-37.0); MCV 94.8 fL (80.0-100.0); Mean Platelet Volume 8.8; Monocytes # (A) 0.4 k/uL (0-1.0); Monocytes % (A) 5 %; Neutrophils # (A) 5.4 k/uL (1.3-7.7); Neutrophils % (A) 64 %; Platelet Count 133 k/uL (150-450); RBC 3.26 m/uL (4.30-5.90); RDW 13.4 % (11.5-15.5); WBC 8.5 k/uL (3.8-10.6)
[2018-11-15] MEDS: INSULIN ASPART 100 UNIT/ML 1 ML 10 ML VIAL SQ SCH ×8 (05:32→21:34)
[2018-11-15 05:34] LABS: Calcium 8.3 mg/dL (8.4-10.2); Potassium 4.6 mmol/L (3.5-5.1)
[2018-11-15] MEDS: SEVELAMER 800 MG TAB PO SCH ×3 (06:49→17:07)
[2018-11-15] MEDS: CARVEDILOL 12.5 MG TAB PO SCH ×2 (06:49→17:06)
[2018-11-15 07:02] LABS: Glucose,Whole Blood 96 mg/dL (75-99)
[2018-11-15] MEDS: INSULIN DETEMIR 100 UNIT/ML 10 ML VIAL SQ SCH (09:54)
[2018-11-15] MEDS: CINACALCET 30 MG TAB PO SCH (09:54)
[2018-11-15] MEDS: APIXABAN 5 MG TAB PO SCH ×2 (09:54→21:35)
[2018-11-15] MEDS: FOLIC ACID-VIT B COMPLEX-VIT C 1 CAP PO SCH (09:54)
[2018-11-15] MEDS: SODIUM CHLORIDE 0.9% 500 ML 500 ML IV SCH ×2 (09:55→16:59)
--- NOTE | 2018-11-15 10:22 | P.PN ---
Subjective Patient is seen in follow-up for end-stage renal disease. He is maintained on hemodialysis on a Wednesday schedule via right chest permacath. He has a clotted left upper extremity AV graft. Patient states that dialysis catheter has been in place since August 2017. His blood culture positive for group B strep. Denies chest pain or shortness of breath. No cough. No vomiting or diarrhea. Vital signs are stable. General: The patient appeared well nourished and normally developed. HEENT: Head exam is unremarkable. Neck is without jugular venous distension. LUNGS: Lungs are clear to auscultation and percussion. Breath sounds decreased. HEART: Rate and Rhythm are regular. First and second heart sounds normal. No murmurs, rubs or gallops. ABDOMEN: Abdominal exam reveals normal bowel sounds. Non-tender and non- distended. No evidence of peritonitis. EXTREMITITES: No clubbing, cyanosis, or edema. Objective - Vital Signs Vital signs: Vital Signs Temp 98.6 F 11/15/18 04:00 Pulse 80 11/15/18 04:00 Resp 21 11/15/18 04:00 BP 108/59 11/15/18 04:00 Pulse Ox 97 11/15/18 04:00 Intake & Output 11/14/18 11/15/18 11/15/18 18:59 06:59 18:59 Intake Total 1282 700 Output Total 700 790 Balance 582 -90 Weight 136 kg 136 kg Intake: IV 175 Sodium Chloride 0.9% 1, 175 000 ml @ 125 mls/hr IV . Q8H [facility] Rx#:[id number] Intake, IV Titration 507 580 Amount Sodium Chloride 0.9% 500 340 480 ml 500 ml @ 40 mls/hr IV .[id number] [facility]I Rx#: [id number] Vancomycin 2,000 mg In 167 Sodium Chloride 0.9% 500 ml 500 ml @ 167 mls/hr IVPB ONCE ONE Rx#: [id number] cefTRIAXone 1,000 mg In 100 Sodium Chloride 0.9% 50 ml @ 100 mls/hr IVPB Q24H [facility] Rx#:[id number] Oral 600 120 Output: Urine 700 790 Other: Voiding Method Toilet Urinal # Voids 1 - Labs CBC & Chem 7: 11/15/18 04:43 11/15/18 04:43 Labs: Abnormal Lab Results - Last 24 Hours (Table) 11/13/18 11/14/18 11/14/18 Range/Units 05:04 11:57 20:50 RBC (4.30-5.90) m/uL Hgb (13.0-17.5) gm/dL Hct (39.0-53.0) % Plt Count (150-450) k/uL BUN (9-20) mg/dL Creatinine (0.66-1.25) mg/dL Glucose (74-99) mg/dL POC Glucose (mg/dL) 108 H 135 H (75-99) mg/dL Hemoglobin A1c 13.2 H (4.0-6.0) % Calcium (8.4-10.2) mg/dL 11/15/18 11/15/18 11/15/18 Range/Units 02:20 04:43 04:43 RBC 3.26 L (4.30-5.90) m/uL Hgb 9.8 L (13.0-17.5) gm/dL Hct 30.9 L (39.0-53.0) % Plt Count 133 L (150-450) k/uL BUN 71 H (9-20) mg/dL Creatinine 7.83 H* (0.66-1.25) mg/dL Glucose 107 H (74-99) mg/dL POC Glucose (mg/dL) 107 H (75-99) mg/dL Hemoglobin A1c (4.0-6.0) % Calcium 8.3 L (8.4-10.2) mg/dL Microbiology - Last 24 Hours (Table) 11/13/18 05:04 Blood Culture Gram Stain - Final Blood Blood Culture - Final Strep agalactiae - (group b) 11/13/18 06:47 Urine Culture - Final Urine,Voided Assessment and Plan Plan: Assessment: 1. End-stage renal disease maintained on hemodialysis on a Wednesday schedule via right chest permacath. He has a clotted left upper extremity AV graft. 2. Group B strep bacteremia. Catheter is a potential and concerning source for infection. 3. Hypertension with chronic kidney disease. Controlled. 4. Anemia of chronic disease. Hemoglobin at goal. 5. Insulin-dependent diabetes mellitus. 6. Chronic kidney disease mineral bone disease maintained on Sensipar and Renvela. Phos 4.1 - at goal. Plan: Currently seen while undergoing hemodialysis. Next treatment on . Follow-up cultures. Antibiotics per infectious disease.
[2018-11-15 10:23] LABS: Magnesium 2.1 mg/dL (1.6-2.3); Phosphorus 5.3 mg/dL (2.5-4.5)
[2018-11-15] MEDS: FUROSEMIDE 20 MG TAB PO SCH ×2 (11:16→21:35)
[2018-11-15] MEDS: LOSARTAN 50 MG TAB PO SCH (11:16)
[2018-11-15 12:21] LABS: Glucose,Whole Blood 110 mg/dL (75-99)
[2018-11-15 17:00] LABS: Glucose,Whole Blood 148 mg/dL (75-99)
[2018-11-15 21:21] LABS: Glucose,Whole Blood 118 mg/dL (75-99)
[2018-11-15] MEDS: cefTRIAXone 2,000 MG in SODIUM CHLORIDE 0.9% 100 ML IVPB SCH (21:37)
--- NOTE | 2018-11-15 23:50 | PN ---
PROGRESS NOTE DATE OF SERVICE: 11/15/2018. REASON FOR FOLLOWUP: Streptococcal agalactiae bacteremia. INTERVAL HISTORY: The patient is afebrile. Has been breathing comfortably. The patient denies having any chest pain, shortness of breath, or cough. No nausea, vomiting, or any diarrhea. PHYSICAL EXAMINATION: Blood pressure is 109/71, pulse of 79, temperature 98.5. He is 96% on room air. GENERAL DESCRIPTION: A middle-aged male up in the chair in no distress. RESPIRATORY SYSTEM: Unlabored breathing. Clear to auscultation anteriorly. HEART: S1, S2. Regular rate and rhythm. ABDOMEN: Soft, no tenderness. LABS: Hemoglobin 9.1, white count of 8.5, BUN of 71, creatinine 7.83. DIAGNOSTIC IMPRESSION AND PLAN: 1. Patient with group B strep bacteremia, source questionably Perma-Cath. 2. Respiratory distress. Patient's blood culture have been negative so far. Could be from dialysis catheter. The patient is currently on ceftriaxone, to continue for now. No need for removal of the PermCath at this point. Continue supportive care. MMODL / IJN: [id number] /
[2018-11-16 01:55] LABS: Glucose,Whole Blood 124 mg/dL (75-99)
[2018-11-16] MEDS: INSULIN ASPART 100 UNIT/ML 1 ML 10 ML VIAL SQ SCH ×8 (03:49→21:12)
[2018-11-16] MEDS: HYDROmorphone 0.5 MG/0.5 ML SYRINGE IVP PRN (04:14)
[2018-11-16 07:24] LABS: Glucose,Whole Blood 115 mg/dL (75-99)
[2018-11-16] MEDS: FOLIC ACID-VIT B COMPLEX-VIT C 1 CAP PO SCH (09:37)
[2018-11-16] MEDS: CINACALCET 30 MG TAB PO SCH (09:37)
[2018-11-16] MEDS: CARVEDILOL 12.5 MG TAB PO SCH ×2 (09:37→17:43)
[2018-11-16] MEDS: LOSARTAN 50 MG TAB PO SCH (09:37)
[2018-11-16] MEDS: APIXABAN 5 MG TAB PO SCH ×2 (09:37→21:08)
[2018-11-16] MEDS: FUROSEMIDE 20 MG TAB PO SCH ×2 (09:37→21:08)
[2018-11-16] MEDS: INSULIN DETEMIR 100 UNIT/ML 10 ML VIAL SQ SCH (09:37)
[2018-11-16 09:54] LABS: Basophils % (A) 0 %; Eosinophils # (A) 0.1 k/uL (0-0.7); Eosinophils % (A) 2 %; HCT 27.6 % (39.0-53.0); Hypochromasia Slight; Lymphocytes # (A) 2.3 k/uL (1.0-4.8); Lymphocytes % (A) 38 %; MCH 30.6 pg (25.0-35.0); MCHC 32.6 g/dL (31.0-37.0); MCV 93.7 fL (80.0-100.0); Mean Platelet Volume 8.3; Monocytes # (A) 0.3 k/uL (0-1.0); Monocytes % (A) 5 %; Neutrophils # (A) 3.2 k/uL (1.3-7.7); Neutrophils % (A) 53 %; Platelet Count 151 k/uL (150-450); RBC 2.95 m/uL (4.30-5.90); RDW 13.4 % (11.5-15.5)
--- NOTE | 2018-11-16 10:03 | P.PN ---
Subjective Patient is seen in follow-up for end-stage renal disease. He is maintained on hemodialysis on a Wednesday schedule via right chest permacath. He has a clotted left upper extremity AV graft. Patient states that dialysis catheter has been in place since August 2017. His blood culture positive for group B strep. Denies chest pain or shortness of breath. No cough. No vomiting or diarrhea. Feels tired as didn't sleep well last night. Vital signs are stable. General: The patient appeared well nourished and normally developed. HEENT: Head exam is unremarkable. Neck is without jugular venous distension. LUNGS: Lungs are clear to auscultation and percussion. Breath sounds decreased. HEART: Rate and Rhythm are regular. First and second heart sounds normal. No murmurs, rubs or gallops. ABDOMEN: Abdominal exam reveals normal bowel sounds. Non-tender and non- distended. No evidence of peritonitis. EXTREMITITES: No clubbing, cyanosis, or edema. Objective - Vital Signs Vital signs: Vital Signs Temp 98.5 F 11/16/18 08:07 Pulse 84 11/16/18 08:07 Resp 16 11/16/18 08:07 BP 126/73 11/16/18 08:07 Pulse Ox 98 11/16/18 08:07 Intake & Output 11/15/18 11/16/18 11/16/18 18:59 06:59 18:59 Intake Total 1280 260 Output Total 300 250 Balance 980 10 Intake: IV 120 0.9 120 Intake, IV Titration 480 140 Amount Sodium Chloride 0.9% 500 480 40 ml 500 ml @ 40 mls/hr IV .[id number] [facility] Rx#: [id number] cefTRIAXone 2,000 mg In 100 Sodium Chloride 0.9% 100 ml @ 100 mls/hr IVPB Q24H [facility] Rx#:[id number] Oral 800 Output: Urine 300 250 Other: Voiding Method Urinal # Voids 1 300 # Bowel Movements 1 - Labs CBC & Chem 7: 11/15/18 04:43 11/15/18 04:43 Labs: Abnormal Lab Results - Last 24 Hours (Table) 11/15/18 11/15/18 11/15/18 Range/Units 04:43 12:09 16:50 POC Glucose (mg/dL) 110 H 148 H (75-99) mg/dL Phosphorus 5.3 H (2.5-4.5) mg/dL 11/15/18 11/16/18 11/16/18 Range/Units 21:09 01:52 07:15 POC Glucose (mg/dL) 118 H 124 H 115 H (75-99) mg/dL Phosphorus (2.5-4.5) mg/dL Microbiology - Last 24 Hours (Table) 11/14/18 18:50 Blood Culture - Preliminary Blood No Growth after 24 hours 11/13/18 05:04 Blood Culture Gram Stain - Final Blood Blood Culture - Final Strep agalactiae - (group b) Assessment and Plan Plan: Assessment: 1. End-stage renal disease maintained on hemodialysis on a Wednesday schedule via right chest permacath. He has a clotted left upper extremity AV graft. 2. Group B strep bacteremia. Catheter is a potential and concerning source for infection. 3. Hypertension with chronic kidney disease. Controlled. 4. Anemia of chronic disease. Hemoglobin at goal. 5. Insulin-dependent diabetes mellitus. 6. Chronic kidney disease mineral bone disease maintained on Sensipar and Renvela. Phos 4.1 - at goal. Plan: Hemodialysis tomorrow. Follow-up cultures. Antibiotics per infectious disease.
[2018-11-16 10:06] LABS: Calcium 8.4 mg/dL (8.4-10.2); Potassium 4.7 mmol/L (3.5-5.1)
[2018-11-16] MEDS: SODIUM CHLORIDE 0.9% 500 ML 500 ML IV SCH (10:34)
[2018-11-16] MEDS: SEVELAMER 800 MG TAB PO SCH ×3 (10:43→17:43)
[2018-11-16 12:09] LABS: Glucose,Whole Blood 183 mg/dL (75-99)
[2018-11-16 17:05] LABS: Glucose,Whole Blood 147 mg/dL (75-99)
[2018-11-16 21:05] LABS: Glucose,Whole Blood 128 mg/dL (75-99)
--- NOTE | 2018-11-16 21:48 | PN ---
PROGRESS NOTE DATE OF SERVICE: 11/16/2018. REASON FOR FOLLOWUP: Streptococcus agalactiae bacteremia, source possible Perma-Cath. INTERVAL HISTORY: The patient is currently afebrile. He is breathing comfortably. Denies having any chest pain or shortness of breath or abdominal pain. No nausea, vomiting and no diarrhea. PHYSICAL EXAMINATION: Blood pressure 109/70 with a pulse of 79, temperature 98.3, he is 97% on room air. GENERAL DESCRIPTION: A middle-aged male up in the room in no distress. RESPIRATORY SYSTEM: Unlabored breathing. Clear to auscultation anteriorly. HEART: S1, S2. Regular rate and rhythm. ABDOMEN: Soft, no tenderness. LABS: Hemoglobin 9 with white count 6.0, BUN of 57, creatinine 6.21. Blood cultures repeat 10/2017 has been negative. DIAGNOSTIC IMPRESSION AND PLAN: Patient with Streptococcus agalactiae bacteremia, source could have been the Perma- cath, however, the patient has cleared his bacteremia very quickly and no need for removal of his Perma-Cath. We will keep the patient on the Rocephin currently and possibly transition to vancomycin through the dialysis for another 10 days following discharge. Continue supportive care. MMODL / IJN: [id number] /
[2018-11-16] MEDS: cefTRIAXone 2,000 MG in SODIUM CHLORIDE 0.9% 100 ML IVPB SCH (21:55)
[2018-11-17] MEDS: SODIUM CHLORIDE 0.9% 500 ML 500 ML IV SCH ×2 (00:09→12:20)
--- NOTE | 2018-11-17 00:35 | P.PN ---
Subjective Progress Note Date: 11/14/18 Progress note being dictated for Dr. Adler. Interval history: This a 48-year-old gentleman admitted with fever, back pain, possible sepsis in a patient with clotted left upper extremity AV graft, chronic renal failure and multiple other medical issues. Blood cultures positive for group B strep. Maintained on broad-spectrum IV antibiotics of vancomycin and Rocephin. Infectious disease consult in place with recommendations pending MRI of cervical,thoracic and lumbosacral spine declined by patient. States back pain improving. CRP 9. Hemodialysis yesterday. Telemetry sinus rhythm. WBC 14.3, T-max 99. Tested negative for influenza. Review of systems: CONSTITUTIONAL: No fever, positive fatigue. HEENT: No recent visual problems or hearing problems. Denied any sore throat. CARDIOVASCULAR: No chest pain, orthopnea, PND, no palpitations, no syncope. PULMONARY: No shortness of breath, no cough, no hemoptysis. GASTROINTESTINAL: No diarrhea, no nausea, no vomiting, no abdominal pain. Normoactive bowel sounds. NEUROLOGICAL: No headaches, generally weakness, no numbness. HEMATOLOGICAL: Denies any bleeding or petechiae. GENITOURINARY: Denies any burning micturition, frequency, or urgency. MUSCULOSKELETAL/RHEUMATOLOGICAL: Chronic back pain, improving ENDOCRINE: Denies any polyuria or polydipsia. PSYCHIATRIC: No anxiety, no depression The rest of the 14 point review of systems is negative. Active Medications Hydrocodone Bitart/Acetaminophen ([place] 5-325) 1 each PO Q6HR PRN PRN Reason: MODERATE Pain Last Admin: 11/13/18 13:44 Dose: 1 each Apixaban (Eliquis) 5 mg PO BID [facility] Last Admin: 11/14/18 11:45 Dose: 5 mg Carvedilol (Coreg) 25 mg PO BID-W/MEALS [facility] Last Admin: 11/14/18 07:13 Dose: 25 mg Cinacalcet (Sensipar) 30 mg PO DAILY [facility] Last Admin: 11/14/18 09:16 Dose: 30 mg Furosemide (Lasix) 60 mg PO BID [facility] Last Admin: 11/14/18 09:16 Dose: 60 mg Hydromorphone HCl (Dilaudid) 0.5 mg IVP Q6HR PRN PRN Reason: SEVERE Pain Vancomycin HCl 2,000 mg/ (Sodium Chloride) 500 mls @ 167 mls/hr IVPB ONCE ONE Stop: 11/14/18 16:59 Ceftriaxone Sodium 1,000 mg/ (Sodium Chloride) 50 mls @ 100 mls/hr IVPB Q24H [facility] Last Admin: 11/14/18 03:40 Dose: 100 mls/hr Sodium Chloride (Saline 0.9%) 500 mls @ 40 mls/hr IV .[id number] [facility] Last Admin: 11/14/18 08:34 Dose: 40 mls/hr Insulin Aspart (Novolog) 10 unit SQ AC-TID [facility] Last Admin: 11/14/18 12:24 Dose: 10 unit Insulin Aspart (Novolog) 0 unit SQ [id number] [facility]; Protocol Last Admin: 11/14/18 07:22 Dose: Not Given Insulin Detemir (Levemir) 50 unit SQ QAM [facility] Last Admin: 11/14/18 09:17 Dose: 50 unit Losartan Potassium (Cozaar) 50 mg PO DAILY [facility] Last Admin: 11/14/18 09:17 Dose: 50 mg Miscellaneous Information (Pharmacy To Dose Iv Vancomycin) 1 each MISCELLANE DIRECTED PRN PRN Reason: Per Protocol Multivit/Ca Carb/B Cmplx/FA/Prenat (Nephrocaps) 1 each PO DAILY [facility] Last Admin: 11/14/18 09:16 Dose: 1 each Naloxone HCl (Narcan) 0.2 mg IV Q2M PRN PRN Reason: Opioid Reversal Sevelamer Carbonate (Renvela) 1,600 mg PO TID-W/MEALS [facility] Last Admin: 11/14/18 12:24 Dose: 1,600 mg Objective - Vital Signs Vital signs: Vital Signs Temp 98.9 F 11/14/18 12:00 Pulse 82 11/14/18 12:00 Resp 23 11/14/18 12:00 BP 103/62 11/14/18 12:00 Pulse Ox 96 11/14/18 12:00 Intake & Output 11/13/18 11/14/1818 18:59 06:59 18:59 Intake Total 1345 1600 475 Output Total 475 800 Balance 870 800 475 Weight 131.542 kg 136 kg 136 kg Intake: IV 1500 175 Sodium Chloride 0.9% 1, 1500 175 000 ml @ 125 mls/hr IV . Q8H [facility] Rx#:[id number] Intake, IV Titration 1125 100 100 Amount Sodium Chloride 0.9% 1, 625 000 ml @ 125 mls/hr IV . Q8H [facility] Rx#:[id number] Sodium Chloride 0.9% 500 100 ml 500 ml @ 40 mls/hr IV .[id number] [facility] Rx#: [id number] Vancomycin 2,000 mg In 500 Sodium Chloride 0.9% 500 ml 500 ml @ 167 mls/hr IVPB ONCE ONE Rx#: [id number] cefTRIAXone 1,000 mg In 100 Sodium Chloride 0.9% 50 ml @ 100 mls/hr IVPB Q24H [facility] Rx#:[id number] Oral 220 200 Output: Urine 475 800 Other: Voiding Method Urinal Urinal Toilet - Exam PHYSICAL EXAM: VITAL SIGNS: As above GENERAL: Sitting up in bed, no acute distress HEENT: Conjunctivae normal. eyes normal. Oral mucosa moist NECK: No JVD. No thyroid enlargement. No LNs CARDIOVASCULAR: S1, S2 muffled. Regular, No murmur RESPIRATION: Breath sounds diminished in the bases. Occasional scattered rhonchi. No crackles. No bronchial breathing. ABDOMEN: Soft, nontender . No guarding. no masses palpable. Bowel sounds heard. LEGS: No edema. no swelling PSYCHIATRY: Alert and oriented -3, mood and affect normal. NERVOUS SYSTEM: Cranial N 2-12 grossly normal. Moves all 4 limbs. Diffuse weakness No focal deficits. Skin: no ulcer no rash - Labs CBC & Chem 7: 11/16/18 08:45 11/16/18 08:45 Labs: Abnormal Lab Results - Last 24 Hours (Table) 11/13/18 11/13/18 11/13/18 Range/Units 05:04 17:29 21:07 WBC (3.8-10.6) k/uL RBC (4.30-5.90) m/uL Hgb (13.0-17.5) gm/dL Hct (39.0-53.0) % Plt Count (150-450) k/uL Neutrophils # (1.3-7.7) k/uL ESR (0-15) mm/hr BUN (9-20) mg/dL Creatinine (0.66-1.25) mg/dL Glucose (74-99) mg/dL POC Glucose (mg/dL) 103 H 166 H (75-99) mg/dL Hemoglobin A1c 13.2 H (4.0-6.0) % Calcium (8.4-10.2) mg/dL 11/14/18 11/14/18 11/14/18 Range/Units 02:11 04:50 04:50 WBC 14.3 H (3.8-10.6) k/uL RBC 3.34 L (4.30-5.90) m/uL Hgb 10.0 L D (13.0-17.5) gm/dL Hct 31.1 L (39.0-53.0) % Plt Count 120 L (150-450) k/uL Neutrophils # 11.6 H (1.3-7.7) k/uL ESR 53 H (0-15) mm/hr BUN 67 H (9-20) mg/dL Creatinine 7.39 H* (0.66-1.25) mg/dL Glucose 102 H (74-99) mg/dL POC Glucose (mg/dL) 101 H (75-99) mg/dL Hemoglobin A1c (4.0-6.0) % Calcium 7.9 L (8.4-10.2) mg/dL 11/14/18 11/14/18 Range/Units 06:57 11:57 WBC (3.8-10.6) k/uL RBC (4.30-5.90) m/uL Hgb (13.0-17.5) gm/dL Hct (39.0-53.0) % Plt Count (150-450) k/uL Neutrophils # (1.3-7.7) k/uL ESR (0-15) mm/hr BUN (9-20) mg/dL Creatinine (0.66-1.25) mg/dL Glucose (74-99) mg/dL POC Glucose (mg/dL) 101 H 108 H (75-99) mg/dL Hemoglobin A1c (4.0-6.0) % Calcium (8.4-10.2) mg/dL Microbiology - Last 24 Hours (Table) 11/13/18 06:47 Urine Culture - Final Urine,Voided 11/13/18 05:04 Blood Culture Gram Stain - Preliminary Blood Blood Culture - Preliminary Strep agalactiae - (group b) 11/13/18 05:04 Blood Culture - Final Blood Assessment and Plan Assessment: -Fever, back pain, possible sepsis. Group B strep bacteremia, possibly from permcath. -Diabetes type 2 -Chronic renal failure, stage IV on hemodialysis -Anemia of chronic disease -Fibromyalgia -Hypertension, controlled -Chronic pain syndrome -Possible Pneumonia -Sleep apnea -Degenerative joint disease Plan: Continue on current medication regime ,monitoring and symptomatic treatment. Repeat Dialysis catheter cultures pending, potential for removal of PermCath. Maintain IV antibiotics as per infectious disease. Hemodialysis as per nephrology. Prognosis guarded given multiple complex medical issues. The impression and plan of care has been dictated as directed. : I performed a history and examination of this patient, discussed the same with the dictator. I agree with the dictator's note ,documented as a scribe. Any additional findings or plans will be noted.
--- NOTE | 2018-11-17 01:03 | P.PN ---
Subjective Progress Note Date: 11/15/18 Progress note being dictated for Dr. Adler. Interval history: This a 48-year-old gentleman admitted with fever, back pain, possible sepsis in a patient with clotted left upper extremity AV graft, chronic renal failure and multiple other medical issues. Blood cultures positive for group B strep. Maintained on broad-spectrum IV antibiotics of vancomycin and Rocephin. Infectious disease consult in place with recommendations pending MRI of cervical,thoracic and lumbosacral spine declined by patient. States back pain improving. CRP 9. Hemodialysis yesterday. Telemetry sinus rhythm. WBC 14.3, T-max 99. Tested negative for influenza. 11/15/18 MedSurg overflow. Feels better today with back pain controlled. Hemodialysis completed this morning, tolerated well. Denies diarrhea. Evaluated by infectious disease, antibiotics adjusted with vancomycin discontinued, maintained on Rocephin. Preliminary Repeat blood cultures negative. Afebrile.WBC wnl.Denies chest pain, palpitations or increased shortness of breath. Hemodialysis today. Active Medications Hydrocodone Bitart/Acetaminophen ([place] 5-325) 1 each PO Q6HR PRN PRN Reason: MODERATE Pain Last Admin: 11/15/18 02:53 Dose: 1 each Apixaban (Eliquis) 5 mg PO BID [facility] Last Admin: 11/15/18 09:54 Dose: 5 mg Carvedilol (Coreg) 25 mg PO BID-W/MEALS [facility] Last Admin: 11/15/18 17:06 Dose: 25 mg Cinacalcet (Sensipar) 30 mg PO DAILY [facility] Last Admin: 11/15/18 09:54 Dose: 30 mg Furosemide (Lasix) 60 mg PO BID [facility] Last Admin: 11/15/18 11:16 Dose: 60 mg Hydromorphone HCl (Dilaudid) 0.5 mg IVP Q6HR PRN PRN Reason: SEVERE Pain Sodium Chloride (Saline 0.9%) 500 mls @ 40 mls/hr IV .[id number] [facility] Last Admin: 11/15/18 16:59 Dose: 40 mls/hr Ceftriaxone Sodium 2,000 mg/ (Sodium Chloride) 100 mls @ 100 mls/hr IVPB Q24H [facility] Last Admin: 11/14/18 22:37 Dose: 100 mls/hr Insulin Aspart (Novolog) 10 unit SQ AC-TID [facility] Last Admin: 11/15/18 17:08 Dose: 10 unit Insulin Aspart (Novolog) 0 unit SQ [id number] [facility]; Protocol Last Admin: 11/15/18 17:08 Dose: 1 unit Insulin Detemir (Levemir) 50 unit SQ QAM [facility] Last Admin: 11/15/18 09:54 Dose: 50 unit Losartan Potassium (Cozaar) 50 mg PO DAILY [facility] Last Admin: 11/15/18 11:16 Dose: 50 mg Multivit/Ca Carb/B Cmplx/FA/Prenat (Nephrocaps) 1 each PO DAILY [facility] Last Admin: 11/15/18 09:54 Dose: 1 each Naloxone HCl (Narcan) 0.2 mg IV Q2M PRN PRN Reason: Opioid Reversal Sevelamer Carbonate (Renvela) 1,600 mg PO TID-W/MEALS [facility] Last Admin: 11/15/18 17:07 Dose: 1,600 mg Objective - Vital Signs Vital signs: Vital Signs Temp 98.6 F 11/15/18 04:00 Pulse 80 11/15/18 04:00 Resp 21 11/15/18 04:00 BP 108/59 11/15/18 04:00 Pulse Ox 97 11/15/18 04:00 Intake & Output 11/14/18 11/15/18 11/15/18 18:59 06:59 18:59 Intake Total 1282 700 360 Output Total 700 790 Balance 582 -90 360 Weight 136 kg 136 kg Intake: IV 175 Sodium Chloride 0.9% 1, 175 000 ml @ 125 mls/hr IV . Q8H [facility] Rx#:[id number] Intake, IV Titration 507 580 160 Amount Sodium Chloride 0.9% 500 340 480 160 ml 500 ml @ 40 mls/hr IV .[id number] [facility] Rx#: [id number] Vancomycin 2,000 mg In 167 Sodium Chloride 0.9% 500 ml 500 ml @ 167 mls/hr IVPB ONCE ONE Rx#: [id number] cefTRIAXone 1,000 mg In 100 Sodium Chloride 0.9% 50 ml @ 100 mls/hr IVPB Q24H [facility] Rx#:[id number] Oral 600 120 200 Output: Urine 700 790 Other: Voiding Method Toilet Urinal # Voids 1 - Exam PHYSICAL EXAM: VITAL SIGNS: As above GENERAL: Sitting up in chair, no acute distress HEENT: Conjunctivae normal. eyes normal. Oral mucosa moist NECK: No JVD. No thyroid enlargement. No LNs CARDIOVASCULAR: S1, S2 muffled. Regular, No murmur RESPIRATION: Respiratory effort normal, bilateral bases diminished. No rhonchi , No crackles. No wheezing. ABDOMEN: Soft, nontender . No guarding. no masses palpable. Bowel sounds heard. LEGS: No edema. no swelling PSYCHIATRY: Alert and oriented -3, mood and affect normal. NERVOUS SYSTEM: Cranial N 2-12 grossly normal. Moves all 4 limbs. Diffuse weakness No focal deficits. - Labs CBC & Chem 7: 11/16/18 08:45 11/16/18 08:45 Labs: Abnormal Lab Results - Last 24 Hours (Table) 11/14/18 11/15/18 11/15/18 Range/Units 20:50 02:20 04:43 RBC 3.26 L (4.30-5.90) m/uL Hgb 9.8 L (13.0-17.5) gm/dL Hct 30.9 L (39.0-53.0) % Plt Count 133 L (150-450) k/uL BUN (9-20) mg/dL Creatinine (0.66-1.25) mg/dL Glucose (74-99) mg/dL POC Glucose (mg/dL) 135 H 107 H (75-99) mg/dL Calcium (8.4-10.2) mg/dL Phosphorus (2.5-4.5) mg/dL 11/15/18 11/15/18 11/15/18 Range/Units 04:43 04:43 12:09 RBC (4.30-5.90) m/uL Hgb (13.0-17.5) gm/dL Hct (39.0-53.0) % Plt Count (150-450) k/uL BUN 71 H (9-20) mg/dL Creatinine 7.83 H* (0.66-1.25) mg/dL Glucose 107 H (74-99) mg/dL POC Glucose (mg/dL) 110 H (75-99) mg/dL Calcium 8.3 L (8.4-10.2) mg/dL Phosphorus 5.3 H (2.5-4.5) mg/dL 11/15/18 Range/Units 16:50 RBC (4.30-5.90) m/uL Hgb (13.0-17.5) gm/dL Hct (39.0-53.0) % Plt Count (150-450) k/uL BUN (9-20) mg/dL Creatinine (0.66-1.25) mg/dL Glucose (74-99) mg/dL POC Glucose (mg/dL) 148 H (75-99) mg/dL Calcium (8.4-10.2) mg/dL Phosphorus (2.5-4.5) mg/dL Microbiology - Last 24 Hours (Table) 11/13/18 05:04 Blood Culture Gram Stain - Final Blood Blood Culture - Final Strep agalactiae - (group b) Assessment and Plan Assessment: -Group B strep bacteremia, possibly from permcath. -Diabetes type 2 -Chronic renal failure, stage IV on hemodialysis -Anemia of chronic disease -Fibromyalgia -Hypertension, controlled -Chronic pain syndrome, chronic back pain improved. -Possible Pneumonia -Sleep apnea -Degenerative joint disease Plan: Continue on current medication regime ,monitoring and symptomatic treatment. Maintain IV antibiotics as per infectious disease. Follow repeat cultures,closely. Hemodialysis in progress. Prognosis guarded given multiple complex medical issues. The impression and plan of care has been dictated as directed. : I performed a history and examination of this patient, discussed the same with the dictator. I agree with the dictator's note ,documented as a scribe. Any additional findings or plans will be noted.
--- NOTE | 2018-11-17 01:14 | P.PN ---
Subjective Progress Note Date: 11/16/18 Progress note being dictated for Dr. Adler. Interval history: This a 48-year-old gentleman admitted with fever, back pain, possible sepsis in a patient with clotted left upper extremity AV graft, chronic renal failure and multiple other medical issues. Blood cultures positive for group B strep. Maintained on broad-spectrum IV antibiotics of vancomycin and Rocephin. Infectious disease consult in place with recommendations pending MRI of cervical,thoracic and lumbosacral spine declined by patient. States back pain improving. CRP 9. Hemodialysis yesterday. Telemetry sinus rhythm. WBC 14.3, T-max 99. Tested negative for influenza. 11/15/18 MedSurg overflow. Feels better today with back pain controlled. Hemodialysis completed this morning, tolerated well. Denies diarrhea. Evaluated by infectious disease, antibiotics adjusted with vancomycin discontinued, maintained on Rocephin. Preliminary Repeat blood cultures negative. Afebrile.WBC wnl.Denies chest pain, palpitations or increased shortness of breath. Hemodialysis today. 11/16/18 tired today, reports did not sleep well last night. Hemodialysis scheduled for tomorrow. Maintained on IV antibiotics of Rocephin as per ID. Afebrile, normal WBC. Repeat blood cultures negative. No need for removal of PermCath as per ID. Good diet intake with no nausea vomiting or diarrhea. Denies abdominal pain. Denies chest pain, palpitations or shortness of breath. Objective - Vital Signs Vital signs: Vital Signs Temp 98.3 F 11/16/18 20:00 Pulse 83 11/16/18 20:00 Resp 16 11/16/18 20:00 BP 109/69 11/16/18 20:00 Pulse Ox 100 11/16/18 20:00 Intake & Output 11/16/18 11/16/18 11/17/18 06:59 18:59 06:59 Intake Total 260 Output Total 250 450 Balance 10 -450 Intake: IV 120 0.9 120 Intake, IV Titration 140 Amount Sodium Chloride 0.9% 500 40 ml 500 ml @ 40 mls/hr IV .[id number] [facility] Rx#: [id number] cefTRIAXone 2,000 mg In 100 Sodium Chloride 0.9% 100 ml @ 100 mls/hr IVPB Q24H [facility] Rx#:[id number] Output: Urine 250 450 Other: Voiding Method Urinal Urinal # Voids 300 2 # Bowel Movements 1 - Exam PHYSICAL EXAM: VITAL SIGNS: As above GENERAL: Sitting up in chair, no acute distress HEENT: Conjunctivae normal. eyes normal. Oral mucosa moist NECK: No JVD. No thyroid enlargement. No LNs CARDIOVASCULAR: S1, S2 muffled. Regular, No murmur, rubs or gallops. RESPIRATION: Respiratory effort normal, bilateral bases diminished. No rhonchi , No crackles. No wheezing. ABDOMEN: Soft, nontender . No guarding. no masses palpable. Bowel sounds heard. LEGS: No edema. no swelling PSYCHIATRY: Alert and oriented -3, mood and affect normal. NERVOUS SYSTEM: Cranial N 2-12 grossly normal. Moves all 4 limbs. Diffuse weakness No focal deficits. Microbiology 11/14/18 18:50 Blood Blood Culture - Preliminary No Growth after 48 hours 11/13/18 05:04 Blood Blood Culture Gram Stain - Final 11/13/18 05:04 Blood Blood Culture - Final Strep agalactiae - (group b) 11/13/18 06:47 Urine,Voided Urine Culture - Final 11/13/18 05:04 Blood Blood Culture - Final - Labs CBC & Chem 7: 11/16/18 08:45 11/16/18 08:45 Labs: Abnormal Lab Results - Last 24 Hours (Table) 11/16/18 11/16/18 11/16/18 Range/Units 01:52 07:15 08:45 RBC 2.95 L (4.30-5.90) m/uL Hgb 9.0 L (13.0-17.5) gm/dL Hct 27.6 L (39.0-53.0) % BUN (9-20) mg/dL Creatinine (0.66-1.25) mg/dL Glucose (74-99) mg/dL POC Glucose (mg/dL) 124 H 115 H (75-99) mg/dL 11/16/18 11/16/18 11/16/18 Range/Units 08:45 12:06 17:03 RBC (4.30-5.90) m/uL Hgb (13.0-17.5) gm/dL Hct (39.0-53.0) % BUN 57 H (9-20) mg/dL Creatinine 6.21 H (0.66-1.25) mg/dL Glucose 123 H (74-99) mg/dL POC Glucose (mg/dL) 183 H 147 H (75-99) mg/dL 11/16/18 Range/Units 21:02 RBC (4.30-5.90) m/uL Hgb (13.0-17.5) gm/dL Hct (39.0-53.0) % BUN (9-20) mg/dL Creatinine (0.66-1.25) mg/dL Glucose (74-99) mg/dL POC Glucose (mg/dL) 128 H (75-99) mg/dL Microbiology - Last 24 Hours (Table) 11/14/18 18:50 Blood Culture - Preliminary Blood No Growth after 48 hours Assessment and Plan Assessment: -Streptococcus agalactiae bacteremia, possibly from permcath. Repeat blood cultures negative with no removal of PermCath recommended per ID. -Diabetes type 2, controlled -Chronic renal failure, stage IV on hemodialysis -Anemia of chronic disease, stable -Hypertension, controlled -Chronic pain syndrome, chronic back pain improved. -Possible Pneumonia -Sleep apnea -Degenerative joint disease Plan: Continue on current medication regime ,monitoring and symptomatic treatment. Maintain IV antibiotics as per infectious disease. Follow repeat cultures,closely. Discharge planning in progress for tomorrow after hemodialysis pending clearance from both infectious disease and nephrology. The impression and plan of care has been dictated as directed. : I performed a history and examination of this patient, discussed the same with the dictator. I agree with the dictator's note ,documented as a scribe. Any additional findings or plans will be noted.
[2018-11-17 02:00] LABS: Glucose,Whole Blood 89 mg/dL (75-99)
[2018-11-17] MEDS: HYDROmorphone 0.5 MG/0.5 ML SYRINGE IVP PRN (02:15)
[2018-11-17] MEDS: INSULIN ASPART 100 UNIT/ML 1 ML 10 ML VIAL SQ SCH ×8 (02:50→21:51)
[2018-11-17 06:55] LABS: Glucose,Whole Blood 167 mg/dL (75-99)
[2018-11-17 07:34] LABS: Basophils % (A) 1 %; Eosinophils # (A) 0.2 k/uL (0-0.7); Eosinophils % (A) 3 %; HCT 28.8 % (39.0-53.0); HGB 9.1 gm/dL (13.0-17.5); Hypochromasia Slight; Lymphocytes # (A) 2.3 k/uL (1.0-4.8); Lymphocytes % (A) 36 %; MCH 29.8 pg (25.0-35.0); MCHC 31.7 g/dL (31.0-37.0); MCV 94.2 fL (80.0-100.0); Mean Platelet Volume 7.8; Monocytes # (A) 0.3 k/uL (0-1.0); Monocytes % (A) 5 %; Neutrophils # (A) 3.3 k/uL (1.3-7.7); Neutrophils % (A) 53 %; Platelet Count 187 k/uL (150-450); RBC 3.06 m/uL (4.30-5.90); RDW 13.6 % (11.5-15.5); WBC 6.3 k/uL (3.8-10.6)
[2018-11-17 07:55] LABS: Calcium 8.6 mg/dL (8.4-10.2)
[2018-11-17] MEDS: CARVEDILOL 12.5 MG TAB PO SCH ×2 (07:58→17:39)
[2018-11-17] MEDS: SEVELAMER 800 MG TAB PO SCH ×3 (07:58→17:40)
[2018-11-17] MEDS: CINACALCET 30 MG TAB PO SCH (08:44)
[2018-11-17] MEDS: APIXABAN 5 MG TAB PO SCH ×2 (08:44→21:50)
[2018-11-17] MEDS: INSULIN DETEMIR 100 UNIT/ML 10 ML VIAL SQ SCH (08:44)
[2018-11-17] MEDS: FOLIC ACID-VIT B COMPLEX-VIT C 1 CAP PO SCH (08:44)
[2018-11-17] MEDS: LOSARTAN 50 MG TAB PO SCH (08:44)
[2018-11-17] MEDS: FUROSEMIDE 20 MG TAB PO SCH ×2 (08:46→21:57)
[2018-11-17 11:27] LABS: Glucose,Whole Blood 115 mg/dL (75-99)
[2018-11-17 16:50] LABS: Glucose,Whole Blood 84 mg/dL (75-99)
--- NOTE | 2018-11-17 17:19 | P.DS ---
Providers Date of admission: 11/13/18 06:28 Expected date of discharge: 11/17/18 Attending physician: Devan Howard Uses for my discharge summary or progress note for date of 11/17/2018 Final Diagnoses: -Streptococcus agalactiae bacteremia, possibly from permcath. Repeat blood cultures negative with no removal of PermCath recommended per ID. -Diabetes type 2, controlled -Chronic renal failure, stage IV on hemodialysis -Anemia of chronic disease, stable -Hypertension, controlled -Chronic pain syndrome, chronic back pain improved. -Possible Pneumonia -Sleep apnea -Degenerative joint disease Hospital course: This a 48-year-old gentleman admitted with fever, back pain, possible sepsis in a patient with clotted left upper extremity AV graft, chronic renal failure and multiple other medical issues. Blood cultures positive for group B strep. Maintained on broad-spectrum IV antibiotics of vancomycin and Rocephin. Infectious disease consult in place with recommendations pending MRI of cervical,thoracic and lumbosacral spine declined by patient. States back pain improving. CRP 9. Hemodialysis yesterday. Telemetry sinus rhythm. WBC 14.3, T-max 99. Tested negative for influenza. Evaluated by infectious disease, antibiotics adjusted with vancomycin discontinued, maintained on Rocephin. Repeat blood cultures negative. No need for removal of PermCath as per ID. Good diet intake with no nausea vomiting or diarrhea. Denies abdominal pain. Denies chest pain, palpitations or shortness of breath. Cleared by nephrology and infectious disease for discharge. Patient is being discharged home in a stable condition with guarded prognosis. EXAM: VITAL SIGNS: As above GENERAL: Sitting up in bed, no acute distress HEENT: Conjunctivae normal. eyes normal. Oral mucosa moist NECK: No JVD. No thyroid enlargement. No LNs CARDIOVASCULAR: S1, S2 muffled. Regular, No murmur, rubs or gallops. RESPIRATION: Respiratory effort normal, bilateral bases diminished. No rhonchi , No crackles. No wheezing. ABDOMEN: Soft, nontender . No guarding. no masses palpable. Bowel sounds heard. LEGS: No edema. no swelling PSYCHIATRY: Alert and oriented -3, mood and affect normal. NERVOUS SYSTEM: Cranial N 2-12 grossly normal. Moves all 4 limbs. No focal deficits. Microbiology 11/14/18 18:50 Blood Blood Culture - Preliminary No Growth after 48 hours 11/13/18 05:04 Blood Blood Culture Gram Stain - Final 11/13/18 05:04 Blood Blood Culture - Final Strep agalactiae - (group b) 11/13/18 06:47 Urine,Voided Urine Culture - Final 11/13/18 05:04 Blood Blood Culture - Final The impression and plan of care has been dictated as directed. : I performed a history and examination of this patient, discussed the same with the dictator. I agree with the dictator's note ,documented as a scribe. Any additional findings or plans will be noted. Time taken: 35 minutes Consults: 11/13/18 06:28 Consult Physician Urgent Consulting Provider: Michelle eMdeiros Consult Reason/Comments: established dialysis pt Do you want consulting provider notified?: Yes 11/14/18 03:01 Consult Physician Urgent Consulting Provider: Cristian Garcia Consult Reason/Comments: dialysis patient/septic/+ blood cultures group B strep Do you want consulting provider notified?: Already Contacted Primary care physician: George Cash Patient Condition at Discharge: Stable Plan - Discharge Summary Discharge Rx Participant: No New Discharge Prescriptions: No Action Insulin Glargine [Lantus] 50 unit SQ QAM Insulin Glulisine [Apidra] 10 unit SQ AC-TID Sevelamer [Renvela] 2,400 mg PO AC-TID Carvedilol [Coreg] 25 mg PO BID Apixaban [Eliquis] 5 mg PO BID #60 tab Cinacalcet [Sensipar] 30 mg PO DAILY Losartan Potassium 50 mg PO DAILY Furosemide [Lasix] 60 mg PO BID Discharge Medication List Insulin Glargine [Lantus] 50 unit SQ QAM 06/21/17 [History] Insulin Glulisine [Apidra] 10 unit SQ AC-TID 07/23/17 [History] Carvedilol [Coreg] 25 mg PO BID 03/02/18 [History] Sevelamer [Renvela] 2,400 mg PO AC-TID 03/02/18 [History] Apixaban [Eliquis] 5 mg PO BID #60 tab 03/03/18 [Rx] Cinacalcet [Sensipar] 30 mg PO DAILY 11/13/18 [History] Furosemide [Lasix] 60 mg PO BID 11/13/18 [History] Losartan Potassium 50 mg PO DAILY 11/13/18 [History] Follow up Appointment(s)/Referral(s): Shailesh Vazquez MD [Primary Care Provider] - 3 Days Lewis Werner DO [STAFF PHYSICIAN] - 1 Week Cristian Garcia MD [STAFF PHYSICIAN] - 1 Week Ambulatory/Diagnostic Orders: Complete Blood Count w/diff [LAB.AMB] Time Frame: 3 Days, Location: None Selected Activity/Diet/Wound Care/Special Instructions: Antibiotics as per ID; vancomycin through the dialysis for another 10 days, pharmacy to dose. HD as per nephrology
[2018-11-17 17:22] LABS: Glucose,Whole Blood 97 mg/dL (75-99)
[2018-11-17 21:55] LABS: Glucose,Whole Blood 183 mg/dL (75-99)
[2018-11-17] MEDS: cefTRIAXone 2,000 MG in SODIUM CHLORIDE 0.9% 100 ML IVPB SCH (22:06)
--- NOTE | 2018-11-17 22:19 | PN ---
PROGRESS NOTE DATE OF SERVICE: 11/17/2018 REASON FOR FOLLOWUP: Streptococcus agalactiae bacteremia. INTERVAL HISTORY: The patient is afebrile. He has been breathing comfortably. Patient denies having any chest pain or shortness of breath or cough. No abdominal pain. Slight pain in the right shoulder area. No nausea, vomiting or any diarrhea. PHYSICAL EXAMINATION: Blood pressure is 137/72 with a pulse of 79, temperature 97.9. He is 100% on room air. General description is a middle-aged male lying in bed in no distress. RESPIRATORY SYSTEM: Unlabored breathing. Clear to auscultation anteriorly. HEART: S1, S2. Regular rate and rhythm. ABDOMEN: Soft. No tenderness. LABS: Hemoglobin 9.1, white count 6.3 with a BUN of 69 and creatinine 6.88. Blood culture repeat from 11/14 has been negative. DIAGNOSTIC IMPRESSION AND PLAN: Patient with Streptococcus agalactiae bacteremia. Source could have been the PermCath. The patient did clear his bacteremia very quickly; hence we do not need to removed the PermCath. The patient is currently on ceftriaxone; however, in order to avoid placing a midline or a PICC line for outpatient IV antibiotic therapy, the patient will be given vancomycin, Pharmacy to dose, through the dialysis. Continue with supportive care. MMODL / IJN: [id number] /
[2018-11-18 03:00] LABS: Glucose,Whole Blood 117 mg/dL (75-99)
[2018-11-18] MEDS: SODIUM CHLORIDE 0.9% 500 ML 500 ML IV SCH (03:10)
[2018-11-18] MEDS: INSULIN ASPART 100 UNIT/ML 1 ML 10 ML VIAL SQ SCH ×5 (03:10→12:19)
[2018-11-18 07:15] LABS: Basophils % (A) 0 %; Eosinophils # (A) 0.2 k/uL (0-0.7); Eosinophils % (A) 2 %; HCT 27.3 % (39.0-53.0); HGB 8.7 gm/dL (13.0-17.5); Hypochromasia Slight; Lymphocytes # (A) 2.4 k/uL (1.0-4.8); Lymphocytes % (A) 38 %; MCH 29.6 pg (25.0-35.0); MCHC 31.7 g/dL (31.0-37.0); MCV 93.3 fL (80.0-100.0); Mean Platelet Volume 7.8; Monocytes # (A) 0.3 k/uL (0-1.0); Monocytes % (A) 4 %; Neutrophils # (A) 3.4 k/uL (1.3-7.7); Neutrophils % (A) 53 %; Platelet Count 200 k/uL (150-450); RBC 2.93 m/uL (4.30-5.90); RDW 14.2 % (11.5-15.5); WBC 6.3 k/uL (3.8-10.6)
[2018-11-18 07:23] LABS: Calcium 8.4 mg/dL (8.4-10.2); Potassium 4.9 mmol/L (3.5-5.1)
[2018-11-18 07:33] LABS: Glucose,Whole Blood 115 mg/dL (75-99)
[2018-11-18] MEDS: CARVEDILOL 12.5 MG TAB PO SCH (07:33)
[2018-11-18] MEDS: SEVELAMER 800 MG TAB PO SCH ×2 (07:33→12:19)
[2018-11-18 07:37] VITALS: BP 133/72; PULSE 87; RESP 14; TEMP 98.7
[2018-11-18] MEDS: LOSARTAN 50 MG TAB PO SCH (08:03)
[2018-11-18] MEDS: APIXABAN 5 MG TAB PO SCH (08:03)
[2018-11-18] MEDS: FUROSEMIDE 20 MG TAB PO SCH (08:03)
[2018-11-18] MEDS: CINACALCET 30 MG TAB PO SCH (08:03)
[2018-11-18] MEDS: FOLIC ACID-VIT B COMPLEX-VIT C 1 CAP PO SCH (08:03)
[2018-11-18] MEDS: INSULIN DETEMIR 100 UNIT/ML 10 ML VIAL SQ SCH (08:03)
--- NOTE | 2018-11-18 10:24 | P.DS ---
Providers Date of admission: 11/13/18 06:28 Attending physician: Devan Adler Consults: 11/13/18 06:28 Consult Physician Urgent Consulting Provider: Michelle Medeiros Consult Reason/Comments: established dialysis pt Do you want consulting provider notified?: Yes 11/14/18 03:01 Consult Physician Urgent Consulting Provider: Cristian Garcia Consult Reason/Comments: dialysis patient/septic/+ blood cultures group B strep Do you want consulting provider notified?: Already Contacted Primary care physician: George Sin [facility] Course: Please refer to the discharge summary from yesterday for further details and patient was seen and examined today as the patient was not discharged yesterday. Antibiotics prescriptions will be provided by infectious disease. Patient will receive antibiotics during dialysis. PHYSICAL EXAMINATION: GENERAL: The patient is alert and oriented x3, not in any acute distress. Well developed, well nourished. HEENT: Pupils are round and equally reacting to light. EOMI. No scleral icterus. No conjunctival pallor. Normocephalic, atraumatic. No pharyngeal erythema. No thyromegaly. CARDIOVASCULAR: S1 and S2 present. No murmurs, rubs, or gallops. PULMONARY: Chest is clear to auscultation, no wheezing or crackles. ABDOMEN: Soft, nontender, nondistended, normoactive bowel sounds. No palpable organomegaly. MUSCULOSKELETAL: No joint swelling or deformity. EXTREMITIES: No cyanosis, clubbing, or pedal edema. NEUROLOGICAL: Gross neurological examination did not reveal any focal deficits. SKIN: No rashes. Patient Condition at Discharge: Stable Plan - Discharge Summary Discharge Rx Participant: No New Discharge Prescriptions: New HYDROcodone/APAP 5-325MG [[place] 5-325] 1 tab PO Q4HR PRN 3 Days #18 tab PRN Reason: Pain No Action Insulin Glargine [Lantus] 50 unit SQ QAM Insulin Glulisine [Apidra] 10 unit SQ AC-TID Sevelamer [Renvela] 2,400 mg PO AC-TID Carvedilol [Coreg] 25 mg PO BID Apixaban [Eliquis] 5 mg PO BID #60 tab Cinacalcet [Sensipar] 30 mg PO DAILY Losartan Potassium 50 mg PO DAILY Furosemide [Lasix] 60 mg PO BID Discharge Medication List Insulin Glargine [Lantus] 50 unit SQ QAM 06/21/17 [History] Insulin Glulisine [Apidra] 10 unit SQ AC-TID 07/23/17 [History] Carvedilol [Coreg] 25 mg PO BID 03/02/18 [History] Sevelamer [Renvela] 2,400 mg PO AC-TID 03/02/18 [History] Apixaban [Eliquis] 5 mg PO BID #60 tab 03/03/18 [Rx] Cinacalcet [Sensipar] 30 mg PO DAILY 11/13/18 [History] Furosemide [Lasix] 60 mg PO BID 11/13/18 [History] Losartan Potassium 50 mg PO DAILY 11/13/18 [History] HYDROcodone/APAP 5-325MG [[place] 5-325] 1 tab PO Q4HR PRN 3 Days #18 tab [Rx] Follow up Appointment(s)/Referral(s): Shailesh Vazquez MD [Primary Care Provider] - 3 Days Lewis Werner DO [STAFF PHYSICIAN] - 1 Week Cristian Garcia MD [STAFF PHYSICIAN] - 1 Week Ambulatory/Diagnostic Orders: Complete Blood Count w/diff [LAB.AMB] Time Frame: 3 Days, Location: None Selected Activity/Diet/Wound Care/Special Instructions: Antibiotics as per ID; vancomycin through the dialysis for another 10 days, pharmacy to dose. HD as per nephrology
[2018-11-18 11:18] LABS: Glucose,Whole Blood 111 mg/dL (75-99)
[2018-11-18] MEDS: HYDROcodone/APAP 5-325MG 1 EACH TAB PO PRN (12:21)
[2018-11-18 12:27] LABS: Hepatitis B Surface AB- Quant 78.9 mIU/mL
--- NOTE | 2018-11-18 14:50 | PN ---
PROGRESS NOTE DATE OF SERVICE: 11/18/2018. REASON FOR FOLLOWUP: Streptococcus agalactiae bacteremia, source likely PermCath infection. INTERVAL HISTORY: The patient is currently afebrile. He is breathing comfortably. Denies having any chest pain. No shortness of breath or cough. No abdominal pain or diarrhea. PHYSICAL EXAMINATION: On examination, blood pressure 133/72 with a pulse of 87, temperature 98.7. He is 98% on room air. General description is a middle age male up in the bed in no distress. RESPIRATORY SYSTEM: Unlabored breathing, clear to auscultation anteriorly. HEART: S1, S2. Regular rate and rhythm. ABDOMEN: Soft, no tenderness. LABS: Hemoglobin 8.7, white count 6.3, BUN of 53, creatinine 5.69. Blood culture repeat 11/14 has been negative. DIAGNOSTIC IMPRESSION AND PLAN: Patient with Streptococcus agalactiae bacteremia. Source more likely the PermCath. However, the patient cleared his bacteremia very quickly. Hence, no need for any removal of the PermCath. Plan at this time is to finish therapy with vancomycin that could be done through the dialysis so we will not have to place the IV. Continue with supportive care. MMODL / IJN: [id number] /
--- NOTE | 2018-11-18 18:52 | PN ---
PROGRESS NOTE Patient is seen for followup for end-stage renal disease. This morning, he stated he felt well and patient is being discharged. PHYSICAL EXAMINATION: This morning, blood pressure was 133/72, heart rate 87 per minute. He is afebrile. Examination of the heart S1, S2. Examination of the lungs bilateral breath sounds are heard. Abdomen is soft, nontender. Exam of lower extremities shows no significant edema. LABS: Show sodium 141, potassium 4.9, hemoglobin 8.7 g/dL. ASSESSMENT: 1. End-stage renal disease, on hemodialysis on a Wednesday, , Wednesday schedule. Patient is scheduled for hemodialysis in a.m. However, if he is discharged, he will follow up for dialysis as an outpatient. 2. Anemia of chronic disease maintained on Aranesp. 3. Chronic kidney disease, mineral bone disorder, currently on Sensipar and Renvela. 4. Hypertension, now controlled. 5. Bacteremia with blood culture initially growing strep agalactiae. However, repeat blood cultures were negative. The patient will be discharged on vancomycin. PLAN: Patient is stable for discharge. Follow up as outpatient on hemodialysis tomorrow. MMODL / IJN: [id number] /
== END 2018-11-18 13:05 | disposition home or self-care (01) | DRG 314 ==
LOC: EC 04:21 → 2SICU 06:28 → 4SSUR 11-16 01:53
PROVIDERS: ADMIT Hospitalist; ATTEND Hospitalist
DX: T80.211A Bloodstream infection due to central venous catheter, initial encounter (principal); J18.9 Pneumonia, unspecified organism; A40.0 Sepsis due to streptococcus, group A; N18.6 End stage renal disease; I12.0 Hypertensive chronic kidney disease with stage 5 chronic kidney disease or end stage renal disease; E11.22 Type 2 diabetes mellitus with diabetic chronic kidney disease; E11.40 Type 2 diabetes mellitus with diabetic neuropathy, unspecified; E66.9 Obesity, unspecified; M51.26 Other intervertebral disc displacement, lumbar region; D63.1 Anemia in chronic kidney disease; Z99.2 Dependence on renal dialysis; M19.90 Unspecified osteoarthritis, unspecified site; G47.33 Obstructive sleep apnea (adult) (pediatric); E88.9 Metabolic disorder, unspecified; Z86.14 Personal history of Methicillin resistant Staphylococcus aureus infection; Z99.89 Dependence on other enabling machines and devices; Z79.01 Long term (current) use of anticoagulants; Z79.4 Long term (current) use of insulin; Z79.899 Other long term (current) drug therapy; Z91.010 Allergy to peanuts; M79.7 Fibromyalgia; Z80.52 Family history of malignant neoplasm of bladder; Z82.49 Family history of ischemic heart disease and other diseases of the circulatory system; Z83.3 Family history of diabetes mellitus; Z86.711 Personal history of pulmonary embolism; Z87.01 Personal history of pneumonia (recurrent)
CPT/HCPCS: 36415; 71046; 80048; 80053; 81001; 82550; 82553; 83036; 83605; 83735; 84100; 84484; 85025; 85610; 85652; 85730; 86140; 86704; 86706; 87040; 87077; 87086; 87150; 87186; 87340; 87502; 90935; 93005; 94660; 94760; 96365; 96366; 96375; 99285

== ENCOUNTER 2018-12-27 06:11 | Emergency (ER) | payer MEDICARE ==
[2018-12-27 06:21] VITALS: BP 148/98; TEMP 98.2
--- NOTE | 2018-12-27 06:53 | ED ---
Chest Pain HPI - General Chief Complaint: Chest Pain Stated Complaint: CHEST PAIN Time Seen by Provider: 12/27/18 06:48 Source: patient, EMS Mode of arrival: EMS Limitations: no limitations - History of Present Illness Initial Comments: Gomez is a 48-year-old obese -[place] gentleman with a history of end- stage renal disease on dialysis. He also reports he has a history of chronic pain. He reports that yesterday he was shoveling snow after the snowstorm. He states that throughout the night he developed progressively worsening pain throughout his entire body with some stabbing pains in his left chest. Patient reports the pains are so bad he was unable to sleep throughout the entire night. When he got to dialysis this morning he advised them of the discomfort he was having and they contacted EMS for transport to the hospital for further evaluation. The patient reports that his pain is all over his body he does have stabbing pain in his left chest, pain seems to feel better when he pushes on his ribs. He does have point tenderness in the left pectoris muscle. - Related Data Home Medications Medication Instructions Recorded Confirmed Insulin Glargine [Lantus] 50 unit SQ QAM 06/21/17 11/13/18 Insulin Glulisine [Apidra] 10 unit SQ AC-TID 07/23/17 11/13/18 Carvedilol [Coreg] 25 mg PO BID 03/02/18 11/13/18 Sevelamer [Renvela] 2,400 mg PO AC-TID 03/02/18 11/13/18 Cinacalcet [Sensipar] 30 mg PO DAILY 11/13/18 11/13/18 Furosemide [Lasix] 60 mg PO BID 11/13/18 11/13/18 Losartan Potassium 50 mg PO DAILY 11/13/18 11/13/18 Previous Rx's Medication Instructions Recorded Apixaban [Eliquis] 5 mg PO BID #60 tab 03/03/18 HYDROcodone/APAP 5-325MG [[place] 1 tab PO Q4HR PRN 3 Days #18 tab 11/18/18 5-325] Allergies Allergy/AdvReac Type Severity Reaction Status Date / Time peanut Allergy Anaphylaxis Verified 11/13/18 08:02 Review of Systems ROS Statement: Those systems with pertinent positive or pertinent negative responses have been documented in the HPI. ROS Other: All systems not noted in ROS Statement are negative. EKG Findings - EKG Comments: EKG Findings:: EKG was obtained at 6:47 AM, rate 71 rhythm is sinus is normal axis, normal intervals, PA 174, QRS 80, QTC 456. There is no peaking of the T waves or T-wave abnormalities. There is no ST elevations or depressions no evidence of acute ischemia or infarction Past Medical History Past Medical History: Diabetes Mellitus, Eye Disorder, Fibromyalgia, Hypertension, Pneumonia, Pulmonary Embolus (PE), Renal Disease, Sleep Apnea/CPAP /BIPAP Additional Past Medical History / Comment(s): IDDM type II, DKA, neuropathy bilateral feet, obesity, chronic renal failure stage IV secondary to DM, normocytic anemia, chronic lower back and shoulders pain, herniated lumbar disk , glaucoma R eye, carpal tunnel syndrome bilaterally, bronchitis, PAULA with CPAP , folliculitis chest, abscesses to back and R groin with I&Ds. Left drop foot History of Any Multi-Drug Resistant Organisms: MRSA Date of last positivie culture/infection: 11/21/12 MDRO Source:: lower back Past Surgical History: No Surgical Hx Reported, Orthopedic Surgery Additional Past Surgical History / Comment(s): Incision and drainage back and R groin r/t abcesses removed, bilateral eye surgery for retinal repair, R eye surgery for glaucoma-has a drain in place. Past Anesthesia/Blood Transfusion Reactions: Postoperative Nausea & Vomiting ( PONV) Additional Past Anesthesia/Blood Transfusion Reaction / Comment(s): pt stated has recieved blood transfusions-no known reaction. Past Psychological History: No Psychological Hx Reported Smoking Status: Never smoker Past Alcohol Use History: None Reported Past Drug Use History: None Reported - Past Family History Father Family Medical History: Diabetes Mellitus, Hypertension Additional Family Medical History / Comment(s): Bladder cancer in father. Father at the age of 78 from bladder cancer complications. Mother Additional Family Medical History / Comment(s): Mother of brain aneurysm General Exam Limitations: no limitations Course Vital Signs 12/27/18 06:16 Temperature 98.2 F Pulse Rate 72 Respiratory 16 Rate Blood Pressure 148/98 O2 Sat by Pulse 98 Oximetry Chest Pain MDM - [facility] Patient was seen and evaluated history is obtained from the patient excited patient with musculoskeletal pain throughout his body including stabbing pain in his left chest wall after shoveling snow yesterday dialysis Center recommended evaluation rather than proceeding with dialysis this morning Labs and imaging ordered EKG nonischemic Chest x-ray unremarkable Patient was treated with IV Valium, upon reevaluation the patient was resting comfortably reported his pain was much better. Patient reports he has a few [place] at home but he seems improved when his pain is really that he didn't take any today. We'll give of by mouth [place]. CBC unremarkable troponin is negative At this time I feel the patient's discomfort is secondary to muscle strain due to shoveling snow, patient is in agreement with this. I will plan to discharge patient home I advised the patient he needs to contact his dialysis Center to establish dialysis since he missed his session today. Patient states that he was planning going back tomorrow for dialysis since he came to the hospital today. All questions pertaining care were answered return parameters were discussed patient was discharged home in stable condition Disposition Clinical Impression: Atypical chest pain, Musculoskeletal pain Disposition: HOME SELF-CARE Instructions (If sedation given, give patient instructions): Musculoskeletal Pain (ED) Is patient prescribed a controlled substance at d/c from ED?: No Referrals: Shailesh Vazquez MD [Primary Care Provider] - 1-2 days
[2018-12-27 07:33] LABS: Basophils % (A) 1 %; Eosinophils # (A) 0.1 k/uL (0-0.7); Eosinophils % (A) 2 %; HCT 36.6 % (39.0-53.0); Lymphocytes # (A) 2.4 k/uL (1.0-4.8); Lymphocytes % (A) 38 %; MCH 31.1 pg (25.0-35.0); MCHC 33.1 g/dL (31.0-37.0); MCV 94.1 fL (80.0-100.0); Mean Platelet Volume 8.4; Monocytes # (A) 0.3 k/uL (0-1.0); Monocytes % (A) 4 %; Neutrophils # (A) 3.4 k/uL (1.3-7.7); Neutrophils % (A) 53 %; Platelet Count 160 k/uL (150-450); RBC 3.89 m/uL (4.30-5.90); RDW 13.6 % (11.5-15.5); WBC 6.3 k/uL (3.8-10.6)
--- NOTE | 2018-12-27 07:34 | XR ---
EXAMINATION TYPE: XR chest 2V DATE OF EXAM: 12/27/2018 COMPARISON: Prior chest x-ray November 13, 2018 HISTORY: Chest pain into upper back after shoveling snow. TECHNIQUE: Frontal and lateral views of the chest are obtained. FINDINGS: There is stable appearing right internal jugular dual-lumen dialysis catheter. Slightly yudi vated left hemidiaphragm is redemonstrated. There is no focal air space opacity, pleural effusion, o r pneumothorax seen. The cardiac silhouette size remains within normal limits. The osseous structu res are intact. IMPRESSION: No acute cardiopulmonary process. No significant change from prior.
[2018-12-27 07:40] LABS: HGB 12.1 gm/dL (13.0-17.5)
[2018-12-27 07:43] LABS: Prothrombin Time 10.7 sec (9.0-12.0)
[2018-12-27] MEDS ORDERED: DIAZEPAM 5 MG/ML 2 ML INJ IVP STA (07:43)
[2018-12-27 07:47] LABS: Albumin 3.7 g/dL (3.5-5.0); Calcium 9.2 mg/dL (8.4-10.2); Magnesium 2.4 mg/dL (1.6-2.3); Potassium 4.9 mmol/L (3.5-5.1); Total Bilirubin 0.4 mg/dL (0.2-1.3); Total Protein 6.6 g/dL (6.3-8.2)
[2018-12-27 07:59] LABS: Creatine Kinase 215 U/L (55-170)
[2018-12-27 08:12] LABS: Creatine Kinase MB 1.8 ng/mL (0.0-2.4); Troponin I <0.012 ng/mL (0.000-0.034)
[2018-12-27] MEDS ORDERED: HYDROcodone/APAP 7.5-325MG 1 EACH TAB PO ONE (08:16)
[2018-12-27 09:07] VITALS: PULSE 78; RESP 18
--- NOTE | 2018-12-28 03:19 | CDI ---
Documentation Clarification OP Dear Zora NASH, DO Please do addendum to ED report for missing Physical examination. Thank you, Oneyda Betancourt Jelly Filter Tender If you have any questions, please contact Learning Strategist at [phone] [facility]
== END 2018-12-27 09:24 | disposition home or self-care (01) ==
LOC: EC 06:11
DX: R07.89 Other chest pain (principal); I12.9 Hypertensive chronic kidney disease with stage 1 through stage 4 chronic kidney disease, or unspecified chronic kidney disease; E11.22 Type 2 diabetes mellitus with diabetic chronic kidney disease; N18.4 Chronic kidney disease, stage 4 (severe); E11.40 Type 2 diabetes mellitus with diabetic neuropathy, unspecified; G47.33 Obstructive sleep apnea (adult) (pediatric); Z99.89 Dependence on other enabling machines and devices; E66.9 Obesity, unspecified; Z68.39 Body mass index [BMI] 39.0-39.9, adult; Z86.14 Personal history of Methicillin resistant Staphylococcus aureus infection; Z87.01 Personal history of pneumonia (recurrent); Z99.2 Dependence on renal dialysis; Z79.4 Long term (current) use of insulin; Z79.899 Other long term (current) drug therapy; Z91.010 Allergy to peanuts; X58.XXXA Exposure to other specified factors, initial encounter; Y93.H1 Activity, digging, shoveling and raking
CPT/HCPCS: 99284; 96374; 36415; 93005; 83880; 80053; 82550; 82553; 83735; 84484; 85025; 85610; 85730; 71046; J3360; 99285

== ENCOUNTER 2019-01-07 20:02 | Emergency (ER) | payer MEDICARE ==
[2019-01-07 20:11] VITALS: TEMP 97.2
--- NOTE | 2019-01-07 20:43 | ED ---
General Adult HPI - General Chief complaint: Extremity Injury, Upper Stated complaint: Shoulder injury Time Seen by Provider: 01/07/19 20:32 Source: patient Mode of arrival: ambulatory Limitations: no limitations - History of Present Illness Initial comments: Patient is a 48-year-old male presenting for injuries sustained from a fall. Patient states that he was walking when he tripped on concrete falling forward and hitting his head on the ground as well as his left shoulder. He denies any back pain, chest pain abdominal pain or headache. He also denies any loss of consciousness or changes in vision. His primary complaint is left shoulder pain and inability to move the arm. He denies any numbness and tingling in the arms well. - Related Data Home Medications Medication Instructions Recorded Confirmed Insulin Glargine [Lantus] 50 unit SQ QAM 06/21/17 11/13/18 Insulin Glulisine [Apidra] 10 unit SQ AC-TID 07/23/17 11/13/18 Carvedilol [Coreg] 25 mg PO BID 03/02/18 11/13/18 Sevelamer [Renvela] 2,400 mg PO AC-TID 03/02/18 11/13/18 Cinacalcet [Sensipar] 30 mg PO DAILY 11/13/18 11/13/18 Furosemide [Lasix] 60 mg PO BID 11/13/18 11/13/18 Losartan Potassium 50 mg PO DAILY 11/13/18 11/13/18 Previous Rx's Medication Instructions Recorded Apixaban [Eliquis] 5 mg PO BID #60 tab 03/03/18 HYDROcodone/APAP 5-325MG [[place] 1 tab PO Q4HR PRN 3 Days #18 tab 11/18/18 5-325] Allergies Allergy/AdvReac Type Severity Reaction Status Date / Time peanut Allergy Anaphylaxis Verified 01/07/19 20:10 Review of Systems ROS Statement: Those systems with pertinent positive or pertinent negative responses have been documented in the HPI. Constitutional: Negative for chills, fatigue and fever. HENT: Negative for congestion. Respiratory: Negative for chest tightness, shortness of breath and wheezing. Negative for cough Cardiovascular: Negative for chest pain and palpitations. Gastrointestinal: Negative for abdominal pain. Negative for abdominal distention , diarrhea, nausea and vomiting. Genitourinary: Negative for dysuria. Musculoskeletal: Negative for back pain, neck pain and neck stiffness. Positive for left shoulder pain and decreased range of motion of left arm Skin: Negative for color change. Neurological: Negative for dizziness, speech difficulty, weakness and light- headedness. Psychiatric/Behavioral: Negative for agitation and confusion. Negative for anxiety ROS Other: All systems not noted in ROS Statement are negative. Past Medical History Past Medical History: Diabetes Mellitus, Eye Disorder, Fibromyalgia, Hypertension, Pneumonia, Pulmonary Embolus (PE), Renal Disease, Sleep Apnea/CPAP /BIPAP Additional Past Medical History / Comment(s): IDDM type II, DKA, neuropathy bilateral feet, obesity, chronic renal failure stage IV secondary to DM, normocytic anemia, chronic lower back and shoulders pain, herniated lumbar disk , glaucoma R eye, carpal tunnel syndrome bilaterally, bronchitis, PAULA with CPAP , folliculitis chest, abscesses to back and R groin with I&Ds. Left drop foot History of Any Multi-Drug Resistant Organisms: MRSA Date of last positivie culture/infection: 11/21/12 MDRO Source:: lower back Past Surgical History: No Surgical Hx Reported, Orthopedic Surgery Additional Past Surgical History / Comment(s): Incision and drainage back and R groin r/t abcesses removed, bilateral eye surgery for retinal repair, R eye surgery for glaucoma-has a drain in place. Past Anesthesia/Blood Transfusion Reactions: Postoperative Nausea & Vomiting ( PONV) Additional Past Anesthesia/Blood Transfusion Reaction / Comment(s): pt stated has recieved blood transfusions-no known reaction. Past Psychological History: No Psychological Hx Reported Smoking Status: Never smoker Past Alcohol Use History: None Reported Past Drug Use History: None Reported - Past Family History Father Family Medical History: Diabetes Mellitus, Hypertension Additional Family Medical History / Comment(s): Bladder cancer in father. Father at the age of 78 from bladder cancer complications. Mother Additional Family Medical History / Comment(s): Mother of brain aneurysm General Exam - General Exam Comments Initial Comments: Constitutional: Pt appears well-developed and well-nourished. No distress. Head: Normocephalic and atraumatic. Eyes: EOM are normal. Neck: Normal range of motion. Neck supple. Cardiovascular: Normal rate, regular rhythm, S1 normal, S2 normal and normal heart sounds. Exam reveals no gallop and no friction rub. No murmur heard. Pulmonary/Chest: Effort normal and breath sounds normal. No tachypnea and no bradypnea. No respiratory distress. No wheezes or rales noted. Abdominal: Soft. Bowel sounds are normal. Pt exhibits no shifting dullness, no distension, no pulsatile liver, no fluid wave, no abdominal bruit and no ascites. There is no rigidity, no rebound, no guarding, no tenderness at McBurney's point and negative Callejas's sign. There is no tenderness. Musculoskeletal: No tenderness to palpation of C-spine, T-spine, L-spine. There is no tenderness to bilateral hips with good range of motion. There is no point tenderness of the left shoulder but there is decreased range of motion. Left arm is neurovascularly intact with 2+ radial pulses noted Neurological: Pt is alert and oriented to person, place, and time. No cranial nerve deficit. Skin: Skin is warm and dry. No rash noted. Pt is not diaphoretic. No erythema. No pallor. Psychiatric: Pt has a normal mood and affect. Pt behavior is normal. Thought content normal. Limitations: no limitations Course Vital Signs 01/07/19 01/07/19 01/08/19 20:08 22:31 00:00 Temperature 97.2 F L Pulse Rate 79 78 67 Respiratory 18 15 18 Rate Blood Pressure 121/78 128/77 121/64 O2 Sat by Pulse 98 97 99 Oximetry Medical Decision Making - Medical Decision Making X-ray of the shoulder and humerus showed no evidence of acute pathology. Because of the patient's decreased range of motion, CT of the shoulder was performed and also showed no evidence of fracture. Additionally, CT of the head and neck was performed as patient was on Cymbalta and this showed no evidence of emergent pathology. It was thought that the patient could be safely discharged as he had family members that could observe him at home. Patient was advised follow-up with PCP in next 1-2 days and that the patient's symptoms could be secondary to ligamentous injury which is not detectable on CT or x-ray. Patient was agreeable to plan Disposition Clinical Impression: Left shoulder pain Disposition: HOME SELF-CARE Condition: Good Is patient prescribed a controlled substance at d/c from ED?: No Referrals: Shailesh Vazquez MD [Primary Care Provider] - 1-2 days Sourav Hollingsworth MD [STAFF PHYSICIAN] - 1-2 days Time of Disposition: 00:15
[2019-01-07] MEDS ORDERED: HYDROcodone/APAP 7.5-325MG 1 EACH TAB PO ONE (21:14)
--- NOTE | 2019-01-07 21:22 | CT ---
EXAMINATION TYPE: CT brain abbeyine wo con DATE OF EXAM: 01/07/2019 COMPARISON: 03/02/2018 HISTORY: Fall, unsteady gait. Subsequent head and neck pain. CT DLP: 1751.5 mGycm. Automated Exposure Control for Dose Reduction was Utilized. TECHNIQUE: CT scan of the head and cervical spine are performed without contrast. FINDINGS: There is no acute intracranial hemorrhage, mass effect, or midline shift identified. The ventricles and sulci are within normal limits in size. The globes are intact and the visualized sin uses are clear. Cerebellar tonsils are noted to be low-lying without brian herniation. Scleral bandin g is noted around the right lobe. Cervical spine is visualized in its entirety from C1 through upper thoracic levels and demonstrates s atisfactory alignment without evidence of acute fracture or dislocation. Prevertebral soft tissue ap pears within normal limits. The C1-C2 articulation is unremarkable. Right internal jugular central venous catheter is partially visualized. IMPRESSION: 1. There is no acute fracture or dislocation evident in the cervical spine. 2. No acute intracranial hemorrhage, mass effect, or midline shift is seen.
--- NOTE | 2019-01-07 21:46 | XR ---
EXAMINATION TYPE: XR humerus LT, XR shoulder complete LT DATE OF EXAM: 01/07/2019 CLINICAL HISTORY: Left arm pain and limited range of motion after fall TECHNIQUE: Two views of the left humerus are obtained. 3 views of the left shoulder were obtained. COMPARISON: None. FINDINGS: There is no acute fracture or dislocation seen in the left humerus. The left shoulder and elbow joints appear aligned. Mild acromioclavicular arthropathy is seen with small osseous cysts of the greater tuberosity. Surgical clips are seen at the elbow joint. IMPRESSION: No acute fracture or dislocation is evident in the left humerus. No acute fracture or di slocation of the left shoulder.
[2019-01-08 00:09] VITALS: BP 121/64; PULSE 67; RESP 18
--- NOTE | 2019-01-08 00:09 | CT ---
EXAM: CT Left Upper Extremity Without Intravenous Contrast, Shoulder CLINICAL HISTORY: Pain with fall TECHNIQUE: Axial computed tomography images of the left shoulder without intravenous contrast. CTDI is 30.2 mGy and DLP is 666.7 mGy-cm. This CT exam was performed using one or more of the following dose reduction techniques: automated exposure control, adjustment of the mA and/or kV according to patient size, and/or use of iterative reconstruction technique. COMPARISON: No relevant prior studies available. FINDINGS: Bones/joints: No acute or healing fracture or malalignment. Moderate hypertrophic degenerative changes at the acromioclavicular joint. No other bony, articular or soft tissue abnormalities. Soft tissues: No soft tissue hematoma. IMPRESSION: No acute or healing fracture or malalignment.
== END 2019-01-08 00:23 | disposition home or self-care (01) ==
LOC: EC 20:02
DX: M25.512 Pain in left shoulder (principal); E11.22 Type 2 diabetes mellitus with diabetic chronic kidney disease; I12.9 Hypertensive chronic kidney disease with stage 1 through stage 4 chronic kidney disease, or unspecified chronic kidney disease; N18.4 Chronic kidney disease, stage 4 (severe); E11.40 Type 2 diabetes mellitus with diabetic neuropathy, unspecified; G47.33 Obstructive sleep apnea (adult) (pediatric); Z99.89 Dependence on other enabling machines and devices; E66.9 Obesity, unspecified; Z68.39 Body mass index [BMI] 39.0-39.9, adult; Z86.711 Personal history of pulmonary embolism; Z86.14 Personal history of Methicillin resistant Staphylococcus aureus infection; Z79.4 Long term (current) use of insulin; Z79.899 Other long term (current) drug therapy; Z91.010 Allergy to peanuts
CPT/HCPCS: 70450; 72125; 99284

== ENCOUNTER 2019-04-26 10:24 | Inpatient (IN) | payer MEDICARE, OTHER ==
--- NOTE | 2019-04-26 11:11 | XR ---
EXAMINATION TYPE: XR chest 2V DATE OF EXAM: 04/26/2019 COMPARISON: 12/27/2018 INDICATION: Weakness dizziness history of asthma TECHNIQUE: Frontal and lateral views of the chest are obtained. FINDINGS: The heart size is normal. The pulmonary vasculature is normal. The lungs are clear. Double-lumen port is present on the right with the tips in the superior vena ca va region. IMPRESSION: 1. No acute pulmonary process.
[2019-04-26 11:12] LABS: Basophils % (A) 0 %; Eosinophils # (A) 0.1 k/uL (0-0.7); Eosinophils % (A) 2 %; HCT 39.2 % (39.0-53.0); HGB 12.9 gm/dL (13.0-17.5); Lymphocytes # (A) 2.2 k/uL (1.0-4.8); Lymphocytes % (A) 40 %; MCH 29.6 pg (25.0-35.0); MCHC 32.8 g/dL (31.0-37.0); MCV 90.1 fL (80.0-100.0); Monocytes # (A) 0.2 k/uL (0-1.0); Monocytes % (A) 4 %; Neutrophils # (A) 2.8 k/uL (1.3-7.7); Neutrophils % (A) 51 %; Platelet Count 135 k/uL (150-450); RBC 4.35 m/uL (4.30-5.90); RDW 13.8 % (11.5-15.5); WBC 5.5 k/uL (3.8-10.6)
[2019-04-26 11:20] LABS: Albumin 3.6 g/dL (3.5-5.0); Partial Thromboplastin Time 24.7 sec (22.0-30.0); Potassium 5.5 mmol/L (3.5-5.1); Prothrombin Time 10.4 sec (9.0-12.0); Total Bilirubin 0.6 mg/dL (0.2-1.3); Total Protein 6.3 g/dL (6.3-8.2)
--- NOTE | 2019-04-26 11:27 | ED ---
General Adult HPI - General Chief complaint: Weakness Stated complaint: chest and rib tightness, dizziness, pain all over Time Seen by Provider: 04/26/19 10:40 Source: patient Mode of arrival: wheelchair Limitations: no limitations - History of Present Illness Initial comments: Dictation was produced using [employer] dictation software. please excuse any grammatical, word or spelling errors. Chief Complaint: 48-year-old male past medical history of ESRD, diabetes, blindness in the right eye, pulmonary embolus presents with generalized weakness fatigue and chest pain. History of Present Illness: A 48-year-old male he has multiple comorbidities including end-stage renal disease, diabetes, pulmonary embolus presents with generalized pain, fatigue, dizziness. Patient is noncompliant with his medications. He states his assessment L was however started after he had left knee surgery. He says 2 bottles left that he hasn't used. Patient also has history of diabetes. They ran out of his insulin medications 4 months ago due to poor financial status. Patient did get dialyzed yesterday and had a full treatment with no significant issues. She denies any constitutional symptoms. Patient reports that his symptoms have been ongoing progressive over the last 3- 4 days. States his pain to the shoulders back lower back and legs. She denies any shortness of breath. He does report some tightness in his chest that is persistent. No exacerbating or mitigating factors. Patient states that was his visit there is a Wednesday. His compliance representative dealer is Dr. Medeiros. He should also reports blurred vision to his left eye. Since that his vision appears cloudy. He does report blindness to his right eye. Denies any eye pain. The ROS documented in this emergency department record has been reviewed and confirmed by me. Those systems with pertinent positive or negative responses have been documented in the HPI. All other systems are other negative and/or noncontributory. PHYSICAL EXAM: General Impression: Alert and oriented x3, not in acute distress HEENT: Normocephalic atraumatic, extra-ocular movements intact, pupils equal and reactive to light bilaterally, mucous membranes moist. Cardiovascular: Heart regular rate and rhythm, S1&S2 audible, no murmurs, rubs or gallops Chest: Lungs clear to auscultation bilaterally, no rhonchi, no wheeze, no rales, tinnitus catheter to the right chest Abdomen: Bowel sounds present, abdomen soft, non-tender, non-distended, no organomegaly Musculoskeletal: Pulses present and equal in all extremities, no peripheral edema Motor: no focal deficits noted Neurological: CN II-XII grossly intact, no focal motor or sensory deficits noted Skin: Intact with no visualized rashes Psych: Normal affect and mood ED course: 48-year-old male multiple comorbidities and medication noncompliance presents with generalized pain, fatigue, left eye vision loss as upon arrival are within acceptable limits. Patient is end-stage renal disease. He did get dialysis yesterday no Return evaluation obtained. CBC unremarkable. Metabolic panel is negative. Patient said 133 and potassium 5.5. He does report having had dialysis yesterday. Patient's renal markers are elevated however he has a history of end-stage renal disease. Glucose 608. Lactic acid is 2.2. Patient given 10 units of IV insulin. Urinalysis shows 4+ glucose. Given his social situation patient to be admitted inpatient. He does not have money Fons or resources obtained glucose controlling medications. There is concern that patient is sent home he will fall into hyperosmolar coma or other life-threatening condition. Patient be admitted is given 10 units of IV insulin. Patient to be admitted with continued insulin therapy social work. EKG interpretation: Ventricular rate 86, normal sinus rhythm, KY interval 158, care 74, QTC 454. No KY prolongation, no QTC prolongation, no ST or T-wave changes noted. EKG compared to [place] 08/18/2019 showing no changes. Overall, this EKG is unremarkable - Related Data Home Medications Medication Instructions Recorded Confirmed Insulin Glargine [Lantus] 50 unit SQ QAM 06/21/17 04/26/19 Insulin Glulisine [Apidra] 10 unit SQ AC-TID 07/23/17 04/26/19 Carvedilol [Coreg] 12.5 mg PO BID 03/02/18 04/26/19 Sevelamer [Renvela] 2,400 mg PO AC-TID 03/02/18 04/26/19 Cinacalcet [Sensipar] 30 mg PO MOTUWETHFR 11/13/18 04/26/19 Furosemide [Lasix] 60 mg PO BID 11/13/18 04/26/19 Losartan Potassium 50 mg PO HS 11/13/18 04/26/19 Apixaban [Eliquis] 2.5 mg PO BID 04/26/19 04/26/19 Calcium Acetate [Phoslo] 1,334 mg PO TID 04/26/19 04/26/19 Folic Acid-Vit B Complex-Vit C 1 mg PO DAILY 04/26/19 04/26/19 [Nephrocaps] HYDROcodone/APAP 7.5-325MG [[place] 1 tab PO Q8H PRN 04/26/19 04/26/19 7.5-325] Allergies Allergy/AdvReac Type Severity Reaction Status Date / Time peanut Allergy Anaphylaxis Verified 04/26/19 10:30 Review of Systems ROS Statement: Those systems with pertinent positive or pertinent negative responses have been documented in the HPI. ROS Other: All systems not noted in ROS Statement are negative. Past Medical History Past Medical History: Diabetes Mellitus, Eye Disorder, Fibromyalgia, Hypertension, Pneumonia, Pulmonary Embolus (PE), Renal Disease, Sleep Apnea/CPAP/BIPAP Additional Past Medical History / Comment(s): IDDM type II, DKA, neuropathy bilateral feet, obesity, chronic renal failure stage IV secondary to DM, normocytic anemia, chronic lower back and shoulders pain, herniated lumbar disk, glaucoma R eye, carpal tunnel syndrome bilaterally, bronchitis, PAULA with CPAP, folliculitis chest, abscesses to back and R groin with I&Ds. Left drop foot History of Any Multi-Drug Resistant Organisms: MRSA Date of last positivie culture/infection: 11/21/12 MDRO Source:: lower back Past Surgical History: Orthopedic Surgery Additional Past Surgical History / Comment(s): Incision and drainage back and R groin r/t abcesses removed, bilateral eye surgery for retinal repair, R eye surgery for glaucoma-has a drain in place. Past Anesthesia/Blood Transfusion Reactions: Postoperative Nausea & Vomiting (PONV) Additional Past Anesthesia/Blood Transfusion Reaction / Comment(s): pt stated has recieved blood transfusions-no known reaction. Past Psychological History: No Psychological Hx Reported Smoking Status: Never smoker Past Alcohol Use History: None Reported Past Drug Use History: None Reported - Past Family History Father Family Medical History: Diabetes Mellitus, Hypertension Additional Family Medical History / Comment(s): Bladder cancer in father. Father at the age of 78 from bladder cancer complications. Mother Additional Family Medical History / Comment(s): Mother of brain aneurysm General Exam Limitations: no limitations Course Vital Signs 04/26/19 04/26/19 04/26/19 10:25 12:08 13:00 Temperature 97.9 F Pulse Rate 95 83 87 Respiratory 22 20 18 Rate Blood Pressure 154/83 168/100 161/87 O2 Sat by Pulse 100 99 100 Oximetry Medical Decision Making - Lab Data Result diagrams: 04/26/19 10:55 04/26/19 10:55 Lab Results 04/26/19 04/26/19 04/26/19 Range/Units 10:55 10:55 10:55 WBC 5.5 (3.8-10.6) k/uL RBC 4.35 (4.30-5.90) m/uL Hgb 12.9 L (13.0-17.5) gm/dL Hct 39.2 (39.0-53.0) % MCV 90.1 (80.0-100.0) fL MCH 29.6 (25.0-35.0) pg MCHC 32.8 (31.0-37.0) g/dL RDW 13.8 (11.5-15.5) % Plt Count 135 L (150-450) k/uL Neutrophils % 51 % Lymphocytes % 40 % Monocytes % 4 % Eosinophils % 2 % Basophils % 0 % Neutrophils # 2.8 (1.3-7.7) k/uL Lymphocytes # 2.2 (1.0-4.8) k/uL Monocytes # 0.2 (0-1.0) k/uL Eosinophils # 0.1 (0-0.7) k/uL Basophils # 0.0 (0-0.2) k/uL PT (9.0-12.0) sec INR (<1.2) APTT (22.0-30.0) sec Sodium 133 L (137-145) mmol/L Potassium 5.5 H (3.5-5.1) mmol/L Chloride 97 L (98-107) mmol/L Carbon Dioxide 26 (22-30) mmol/L Anion Gap 10 mmol/L BUN 53 H (9-20) mg/dL Creatinine 6.01 H (0.66-1.25) mg/dL Est GFR (CKD-EPI)AfAm 12 (>60 ml/min/1.73 sqM) Est GFR (CKD-EPI)NonAf 10 (>60 ml/min/1.73 sqM) Glucose 608 H* (74-99) mg/dL POC Glucose (mg/dL) (75-99) mg/dL POC Glu Coke Loader ID Plasma Lactic Acid Saman 2.2 H* (0.7-2.0) mmol/L Calcium 8.0 L (8.4-10.2) mg/dL Magnesium 2.0 (1.6-2.3) mg/dL Total Bilirubin 0.6 (0.2-1.3) mg/dL AST 18 (17-59) U/L ALT 16 L (21-72) U/L Alkaline Phosphatase 204 H (38-126) U/L Creatine Kinase 114 (55-170) U/L Troponin I (0.000-0.034) ng/mL Total Protein 6.3 (6.3-8.2) g/dL Albumin 3.6 (3.5-5.0) g/dL Urine Color Urine Appearance (Clear) Urine pH (5.0-8.0) Ur Specific Blanket (1.001-1.035) Urine Protein (Negative) Urine Glucose (UA) (Negative) Urine Ketones (Negative) Urine Blood (Negative) Urine Nitrite (Negative) Urine Bilirubin (Negative) Urine Urobilinogen (<2.0) mg/dL Ur Leukocyte Esterase (Negative) Urine RBC (0-5) /hpf Urine WBC (0-5) /hpf Ur Squamous Epith Cells (0-4) /hpf 04/26/19 04/26/19 04/26/19 Range/Units 10:55 10:55 11:45 WBC (3.8-10.6) k/uL RBC (4.30-5.90) m/uL Hgb (13.0-17.5) gm/dL Hct (39.0-53.0) % MCV (80.0-100.0) fL MCH (25.0-35.0) pg MCHC (31.0-37.0) g/dL RDW (11.5-15.5) % Plt Count (150-450) k/uL Neutrophils % % Lymphocytes % % Monocytes % % Eosinophils % % Basophils % % Neutrophils # (1.3-7.7) k/uL Lymphocytes # (1.0-4.8) k/uL Monocytes # (0-1.0) k/uL Eosinophils # (0-0.7) k/uL Basophils # (0-0.2) k/uL PT 10.4 (9.0-12.0) sec INR 1.0 (<1.2) APTT 24.7 (22.0-30.0) sec Sodium (137-145) mmol/L Potassium (3.5-5.1) mmol/L Chloride (98-107) mmol/L Carbon Dioxide (22-30) mmol/L Anion Gap mmol/L BUN (9-20) mg/dL Creatinine (0.66-1.25) mg/dL Est GFR (CKD-EPI)AfAm (>60 ml/min/1.73 sqM) Est GFR (CKD-EPI)NonAf (>60 ml/min/1.73 sqM) Glucose (74-99) mg/dL POC Glucose (mg/dL) (75-99) mg/dL POC Glu Coke Loader ID Plasma Lactic Acid Saman (0.7-2.0) mmol/L Calcium (8.4-10.2) mg/dL Magnesium (1.6-2.3) mg/dL Total Bilirubin (0.2-1.3) mg/dL AST (17-59) U/L ALT (21-72) U/L Alkaline Phosphatase (38-126) U/L Creatine Kinase (55-170) U/L Troponin I 0.015 (0.000-0.034) ng/mL Total Protein (6.3-8.2) g/dL Albumin (3.5-5.0) g/dL Urine Color Light Yellow Urine Appearance Clear (Clear) Urine pH 7.5 (5.0-8.0) Ur Specific Blanket 1.015 (1.001-1.035) Urine Protein 1+ H (Negative) Urine Glucose (UA) 4+ H (Negative) Urine Ketones Negative (Negative) Urine Blood Trace H (Negative) Urine Nitrite Negative (Negative) Urine Bilirubin Negative (Negative) Urine Urobilinogen <2.0 (<2.0) mg/dL Ur Leukocyte Esterase Negative (Negative) Urine RBC <1 (0-5) /hpf Urine WBC <1 (0-5) /hpf Ur Squamous Epith Cells <1 (0-4) /hpf 04/26/19 Range/Units 12:59 WBC (3.8-10.6) k/uL RBC (4.30-5.90) m/uL Hgb (13.0-17.5) gm/dL Hct (39.0-53.0) % MCV (80.0-100.0) fL MCH (25.0-35.0) pg MCHC (31.0-37.0) g/dL RDW (11.5-15.5) % Plt Count (150-450) k/uL Neutrophils % % Lymphocytes % % Monocytes % % Eosinophils % % Basophils % % Neutrophils # (1.3-7.7) k/uL Lymphocytes # (1.0-4.8) k/uL Monocytes # (0-1.0) k/uL Eosinophils # (0-0.7) k/uL Basophils # (0-0.2) k/uL PT (9.0-12.0) sec INR (<1.2) APTT (22.0-30.0) sec Sodium (137-145) mmol/L Potassium (3.5-5.1) mmol/L Chloride (98-107) mmol/L Carbon Dioxide (22-30) mmol/L Anion Gap mmol/L BUN (9-20) mg/dL Creatinine (0.66-1.25) mg/dL Est GFR (CKD-EPI)AfAm (>60 ml/min/1.73 sqM) Est GFR (CKD-EPI)NonAf (>60 ml/min/1.73 sqM) Glucose (74-99) mg/dL POC Glucose (mg/dL) 593 H (75-99) mg/dL POC Glu Coke Loader ID Liset Yin Plasma Lactic Acid Saman (0.7-2.0) mmol/L Calcium (8.4-10.2) mg/dL Magnesium (1.6-2.3) mg/dL Total Bilirubin (0.2-1.3) mg/dL AST (17-59) U/L ALT (21-72) U/L Alkaline Phosphatase (38-126) U/L Creatine Kinase (55-170) U/L Troponin I (0.000-0.034) ng/mL Total Protein (6.3-8.2) g/dL Albumin (3.5-5.0) g/dL Urine Color Urine Appearance (Clear) Urine pH (5.0-8.0) Ur Specific Blanket (1.001-1.035) Urine Protein (Negative) Urine Glucose (UA) (Negative) Urine Ketones (Negative) Urine Blood (Negative) Urine Nitrite (Negative) Urine Bilirubin (Negative) Urine Urobilinogen (<2.0) mg/dL Ur Leukocyte Esterase (Negative) Urine RBC (0-5) /hpf Urine WBC (0-5) /hpf Ur Squamous Epith Cells (0-4) /hpf Disposition Clinical Impression: Hyperglycemia, Social problem Disposition: ADMITTED IP TO THIS [facility] Condition: Fair Referrals: Shailesh Vazquez MD [Primary Care Provider] - 1-2 days Decision Time: 13:18
[2019-04-26 12:28] LABS: Appearance,Urine Clear (Clear); Bilirubin,Urine Negative (Negative); Blood,Urine Trace (Negative); Color,Urine Light Yellow; Glucose,Urine (UA) 4+ (Negative); Ketones,Urine Negative (Negative); Leukocyte Esterase,Urine Negative (Negative); Nitrite,Urine Negative (Negative); PH, Urine 7.5 (5.0-8.0); Protein,Urine 1+ (Negative); RBC,Urine <1 /hpf (0-5); Specific Gravity,Urine 1.015 (1.001-1.035); Squamous Epithelial Cell,Urine <1 /hpf (0-4); Urobilinogen,Urine <2.0 mg/dL (<2.0); WBC,Urine <1 /hpf (0-5)
[2019-04-26] MEDS ORDERED: INSULIN REGULAR 100 UNIT/ML VIAL IV ONE ×2 (12:31→17:43)
[2019-04-26 13:01] LABS: Glucose,Whole Blood 593 mg/dL (75-99)
[2019-04-26] MEDS ORDERED: SODIUM POLYSTYRENE SULFONATE 15 GM/60 ML BOTTLE PO STA (13:18)
[2019-04-26] MEDS ORDERED: NALOXONE 0.4 MG/ML 1 ML VIAL IV PRN (13:19)
[2019-04-26 14:36] LABS: Glucose,Whole Blood 427 mg/dL (75-99)
[2019-04-26 16:08] LABS: Glucose,Whole Blood 532 mg/dL (75-99)
[2019-04-26] MEDS: HYDROcodone/APAP 7.5-325MG 1 EACH TAB PO PRN (16:36)
--- NOTE | 2019-04-26 16:36 | P.HPIM ---
History of Present Illness 48-year-old male with a multiple medical problems including end-stage renal disease with diabetic nephropathy diabetic retinopathy came in with blurry vision found to have elevated blood sugars of 600. Blood vision is secondary to hyperglycemia. Patient was also coming of lightheadedness polyuria and polydipsia. Patient has not been using his insulin at home on regular basis patient ran out of insulin about 4 months ago and he cannot afford the co-pay to see the primary doctor because of which she stopped using insulin. Patient denied any fever chills nausea vomiting. Patient the is incisional disease, dialysis dependent.'s also coming of generalized fatigue and dizziness Review of Systems REVIEW OF SYSTEMS: CONSTITUTIONAL: As mentioned in HPI HEENT: No hearing problems. Denied any sore throat. CARDIOVASCULAR: No chest pain, orthopnea, PND, no palpitations, no syncope. PULMONARY: No shortness of breath, no cough, no hemoptysis. GASTROINTESTINAL: No diarrhea, no nausea, no vomiting, no abdominal pain. NEUROLOGICAL: No headaches, no weakness, no numbness. HEMATOLOGICAL: Denies any bleeding or petechiae. GENITOURINARY: Denies any burning micturition, frequency, or urgency. MUSCULOSKELETAL/RHEUMATOLOGICAL: Denies any joint pain, swelling, or any muscle pain. ENDOCRINE: Denies any polyuria or polydipsia. The rest of the 14-point review of systems is negative. Past Medical History Past Medical History: Diabetes Mellitus, Eye Disorder, Fibromyalgia, Hypertension, Pneumonia, Pulmonary Embolus (PE), Renal Disease, Sleep Apnea/CPA P/BIPAP Additional Past Medical History / Comment(s): IDDM type II, DKA, neuropathy bilateral feet, obesity, chronic renal failure stage IV secondary to DM, normocytic anemia, chronic lower back and shoulders pain, herniated lumbar disk, glaucoma R eye, carpal tunnel syndrome bilaterally, bronchitis, PAULA with CPAP, folliculitis chest, abscesses to back and R groin with I&Ds. Left drop foot History of Any Multi-Drug Resistant Organisms: MRSA Date of last positivie culture/infection: 11/21/12 MDRO Source:: lower back Past Surgical History: Orthopedic Surgery Additional Past Surgical History / Comment(s): Incision and drainage back and R groin r/t abcesses removed, bilateral eye surgery for retinal repair, R eye surgery for glaucoma-has a drain in place. Past Anesthesia/Blood Transfusion Reactions: Postoperative Nausea & Vomiting (PONV) Additional Past Anesthesia/Blood Transfusion Reaction / Comment(s): pt stated has recieved blood transfusions-no known reaction. Past Psychological History: No Psychological Hx Reported Smoking Status: Never smoker Past Alcohol Use History: None Reported Past Drug Use History: None Reported - Past Family History Father Family Medical History: Diabetes Mellitus, Hypertension Additional Family Medical History / Comment(s): Bladder cancer in father. Father at the age of 78 from bladder cancer complications. Mother Additional Family Medical History / Comment(s): Mother of brain aneurysm Medications and Allergies Home Medications Medication Instructions Recorded Confirmed Type Insulin Glargine [Lantus] 50 unit SQ QAM 06/21/17 04/26/19 History Insulin Glulisine [Apidra] 10 unit SQ AC-TID 07/23/17 04/26/19 History Carvedilol [Coreg] 12.5 mg PO BID 03/02/18 04/26/19 History Sevelamer [Renvela] 2,400 mg PO AC-TID 03/02/18 04/26/19 History Cinacalcet [Sensipar] 30 mg PO MOTUWETHFR 11/13/18 04/26/19 History Furosemide [Lasix] 60 mg PO BID 11/13/18 04/26/19 History Losartan Potassium 50 mg PO HS 11/13/18 04/26/19 History Apixaban [Eliquis] 2.5 mg PO BID 04/26/19 04/26/19 History Calcium Acetate [Phoslo] 1,334 mg PO TID 04/26/19 04/26/19 History Folic Acid-Vit B Complex-Vit C 1 mg PO DAILY 04/26/19 04/26/19 History [Nephrocaps] HYDROcodone/APAP 7.5-325MG [[place] 1 tab PO Q8H PRN 04/26/19 04/26/19 History 7.5-325] Allergies Allergy/AdvReac Type Severity Reaction Status Date / Time peanut Allergy Anaphylaxis Verified 04/26/19 10:30 Physical Exam Vitals: Vital Signs Temp Pulse Resp BP Pulse Ox 04/26/19 14:30 92 18 167/90 98 04/26/19 13:00 87 18 161/87 100 04/26/19 12:08 83 20 168/100 99 04/26/19 10:25 97.9 F 95 22 154/83 100 Intake and Output 04/26/19 04/26/19 04/26/19 06:59 14:59 22:59 Other: Weight 133.81 kg PHYSICAL EXAMINATION: GENERAL: The patient is alert and oriented x3, not in any acute distress. Obese HEENT: Pupils are round and equally reacting to light. EOMI. No scleral icterus. No conjunctival pallor. Normocephalic, atraumatic. No pharyngeal erythema. No thyromegaly. CARDIOVASCULAR: S1 and S2 present. No murmurs, rubs, or gallops. PULMONARY: Chest is clear to auscultation, no wheezing or crackles. ABDOMEN: Soft, nontender, nondistended, normoactive bowel sounds. No palpable organomegaly. MUSCULOSKELETAL: No joint swelling or deformity. EXTREMITIES: No cyanosis, clubbing, or pedal edema. NEUROLOGICAL: Gross neurological examination did not reveal any focal deficits. SKIN: No rashes. Results CBC & Chem 7: 04/26/19 10:55 04/26/19 10:55 Labs: Abnormal Lab Results - Last 24 Hours (Table) 04/26/19 04/26/19 04/26/19 Range/Units 10:48 10:55 10:55 Hgb 12.9 L (13.0-17.5) gm/dL Plt Count 135 L (150-450) k/uL Sodium 133 L (137-145) mmol/L Potassium 5.5 H (3.5-5.1) mmol/L Chloride 97 L (98-107) mmol/L BUN 53 H (9-20) mg/dL Creatinine 6.01 H (0.66-1.25) mg/dL Glucose 608 H* (74-99) mg/dL POC Glucose (mg/dL) 532 H (75-99) mg/dL Plasma Lactic Acid Saman (0.7-2.0) mmol/L Calcium 8.0 L (8.4-10.2) mg/dL ALT 16 L (21-72) U/L Alkaline Phosphatase 204 H (38-126) U/L Urine Protein (Negative) Urine Glucose (UA) (Negative) Urine Blood (Negative) 04/26/19 04/26/19 04/26/19 Range/Units 10:55 11:45 12:59 Hgb (13.0-17.5) gm/dL Plt Count (150-450) k/uL Sodium (137-145) mmol/L Potassium (3.5-5.1) mmol/L Chloride (98-107) mmol/L BUN (9-20) mg/dL Creatinine (0.66-1.25) mg/dL Glucose (74-99) mg/dL POC Glucose (mg/dL) 593 H (75-99) mg/dL Plasma Lactic Acid Saman 2.2 H* (0.7-2.0) mmol/L Calcium (8.4-10.2) mg/dL ALT (21-72) U/L Alkaline Phosphatase (38-126) U/L Urine Protein 1+ H (Negative) Urine Glucose (UA) 4+ H (Negative) Urine Blood Trace H (Negative) 04/26/19 Range/Units 14:26 Hgb (13.0-17.5) gm/dL Plt Count (150-450) k/uL Sodium (137-145) mmol/L Potassium (3.5-5.1) mmol/L Chloride (98-107) mmol/L BUN (9-20) mg/dL Creatinine (0.66-1.25) mg/dL Glucose (74-99) mg/dL POC Glucose (mg/dL) 427 H (75-99) mg/dL Plasma Lactic Acid Saman (0.7-2.0) mmol/L Calcium (8.4-10.2) mg/dL ALT (21-72) U/L Alkaline Phosphatase (38-126) U/L Urine Protein (Negative) Urine Glucose (UA) (Negative) Urine Blood (Negative) Assessment and Plan Plan: -Lightheadedness blurry vision: Secondary to hyperglycemia patient will be resumed on his home regimen along with sliding scale insulin and titrate insulin depending on his blood sugars here. Counseling was provided regarding importance of using insulin on regular basis. Glycemia due to noncompliance with medications. -Hyponatremia hypovolemic hyponatremia patient will undergo regular hemodialysis nephrology was consulted -Hyperkalemia end-stage renal disease is contributing to his hyper kalemia along with hyperglycemia which is contributing to his hyperglycemia patient does not have any anion gap metabolic acidosis or hyperosmolar state at this time. 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
[2019-04-26] MEDS ORDERED: INSULIN ASPART (NovoLOG) 100 UNIT/ML VIAL SQ SCH (17:30)
[2019-04-26 17:46] LABS: Glucose,Whole Blood 323 mg/dL (75-99)
[2019-04-26] MEDS: CALCIUM ACETATE 667 MG CAP PO SCH (18:39)
[2019-04-26] MEDS: SEVELAMER 800 MG TAB PO SCH (18:39)
[2019-04-26] MEDS: CARVEDILOL 12.5 MG TAB PO SCH (18:39)
[2019-04-26] MEDS: INSULIN ASPART (NovoLOG) 100 UNIT/ML VIAL SQ SCH ×2 (18:40→21:45)
[2019-04-26 20:40] LABS: Glucose,Whole Blood 246 mg/dL (75-99)
[2019-04-26] MEDS ORDERED: HYDROcodone/APAP 7.5-325MG 1 EACH TAB PO ONE (20:51)
[2019-04-26] MEDS ORDERED: LOSARTAN 50 MG TAB PO SCH (21:00)
[2019-04-26] MEDS: APIXABAN 2.5 MG TABLET PO SCH (21:44)
[2019-04-27 07:08] LABS: Glucose,Whole Blood 172 mg/dL (75-99)
[2019-04-27] MEDS: INSULIN ASPART (NovoLOG) 100 UNIT/ML VIAL SQ SCH ×6 (08:18→18:18)
[2019-04-27] MEDS: CALCIUM ACETATE 667 MG CAP PO SCH ×3 (08:19→17:10)
[2019-04-27] MEDS: SEVELAMER 800 MG TAB PO SCH ×3 (08:19→17:10)
[2019-04-27] MEDS: CARVEDILOL 12.5 MG TAB PO SCH ×2 (08:19→17:26)
[2019-04-27] MEDS ORDERED: CINACALCET 30 MG TAB PO SCH (09:00)
[2019-04-27] MEDS ORDERED: INSULIN DETEMIR (LEVEMIR) 100 UNIT/ML SYR SQ SCH (09:00)
[2019-04-27] MEDS: APIXABAN 2.5 MG TABLET PO SCH (09:09)
--- NOTE | 2019-04-27 09:41 | P.NPCON ---
History of Present Illness - Reason for Consult end stage renal disease - History of Present Illness Reason for consultation: End-stage renal disease History of present illness: Patient is a 48-year-old male seen in consultation for end-stage renal disease. He is maintained on hemodialysis on a Wednesday schedule via permacath. Patient states due to financial strains, he was unable to afford insulin and has not taken his regular dose for several months. Patient felt dizzy and fatigued and presented to the hospital. Patient's blood sugar was elevated at 608 on admission. It was 172 this morning. Last hemodialysis was on Wednesday. He denies chest pain or shortness of breath. Hemodynamically stable. No fever or chills. No abdominal pain. No vomiting or diarrhea. Vital signs are stable. General: The patient appeared well nourished and normally developed. HEENT: Head exam is unremarkable. Neck is without jugular venous distension. LUNGS: Lungs are clear to auscultation and percussion. Breath sounds decreased. HEART: Rate and Rhythm are regular. First and second heart sounds normal. No murmurs, rubs or gallops. ABDOMEN: Abdominal exam reveals normal bowel sounds. Non-tender and non- distended. No evidence of peritonitis. EXTREMITITES: No clubbing, cyanosis, or edema. Past Medical History Past Medical History: Diabetes Mellitus, Eye Disorder, Fibromyalgia, Hypertension, Pneumonia, Pulmonary Embolus (PE), Renal Disease, Sleep Apnea/CPAP/BIPAP Additional Past Medical History / Comment(s): IDDM type II, DKA, neuropathy bilateral feet, obesity, chronic renal failure stage IV secondary to DM, normo cytic anemia, chronic lower back and shoulders pain, herniated lumbar disk, glaucoma R eye, carpal tunnel syndrome bilaterally, bronchitis, PAULA with CPAP, folliculitis chest, abscesses to back and R groin with I&Ds. Left drop foot History of Any Multi-Drug Resistant Organisms: MRSA Date of last positivie culture/infection: 11/21/12 MDRO Source:: lower back Past Surgical History: Orthopedic Surgery Additional Past Surgical History / Comment(s): Incision and drainage back and R groin r/t abcesses removed, bilateral eye surgery for retinal repair, R eye surgery for glaucoma-has a drain in place. Past Anesthesia/Blood Transfusion Reactions: Postoperative Nausea & Vomiting (PONV) Additional Past Anesthesia/Blood Transfusion Reaction / Comment(s): pt stated has recieved blood transfusions-no known reaction. Past Psychological History: No Psychological Hx Reported Smoking Status: Never smoker Past Alcohol Use History: None Reported Past Drug Use History: None Reported - Past Family History Father Family Medical History: Diabetes Mellitus, Hypertension Additional Family Medical History / Comment(s): Bladder cancer in father. Father at the age of 78 from bladder cancer complications. Mother Additional Family Medical History / Comment(s): Mother of brain aneurysm Medications and Allergies Home Medications Medication Instructions Recorded Confirmed Type Insulin Glargine [Lantus] 50 unit SQ QAM 06/21/17 04/26/19 History Insulin Glulisine [Apidra] 10 unit SQ AC-TID 07/23/17 04/26/19 History Carvedilol [Coreg] 12.5 mg PO BID 03/02/18 04/26/19 History Sevelamer [Renvela] 2,400 mg PO AC-TID 03/02/18 04/26/19 History Cinacalcet [Sensipar] 30 mg PO MOTUWETHFR 11/13/18 04/26/19 History Furosemide [Lasix] 60 mg PO BID 11/13/18 04/26/19 History Losartan Potassium 50 mg PO HS 11/13/18 04/26/19 History Apixaban [Eliquis] 2.5 mg PO BID 04/26/19 04/26/19 History Calcium Acetate [Phoslo] 1,334 mg PO TID 04/26/19 04/26/19 History Folic Acid-Vit B Complex-Vit C 1 mg PO DAILY 04/26/19 04/26/19 History [Nephrocaps] HYDROcodone/APAP 7.5-325MG [[place] 1 tab PO Q8H PRN 04/26/19 04/26/19 History 7.5-325] Allergies Allergy/AdvReac Type Severity Reaction Status Date / Time peanut Allergy Anaphylaxis Verified 04/26/19 10:30 Physical Exam Vitals: Vital Signs Temp Pulse Pulse Resp BP BP Pulse Ox 04/27/19 05:55 97.0 F L 73 20 125/66 98 04/26/19 20:39 96.8 F L 82 22 125/64 96 04/26/19 17:40 97.8 F 80 20 147/89 96 04/26/19 16:30 97.8 F 80 18 121/81 100 04/26/19 14:30 92 18 167/90 98 04/26/19 13:00 87 18 161/87 100 04/26/19 12:08 83 20 168/100 99 04/26/19 10:25 97.9 F 95 22 154/83 100 Intake and Output 04/26/19 04/27/19 04/27/19 22:59 06:59 14:59 Output Total 250 Balance -250 Output: Urine 250 Other: Voiding Method Urinal # Voids 2 Weight 137.3 kg Results - Lab Results Most recent lab results Calcium 8.0 mg/dL (8.4-10.2) L 04/26/19 10:55 Magnesium 2.0 mg/dL (1.6-2.3) 04/26/19 10:55 04/26/19 10:55 04/26/19 10:55 Assessment and Plan Plan: Assessment: 1. End-stage renal disease maintained on hemodialysis on a Wednesday schedule via permacath. Patient has a left upper extremity AV graft which is currently not functioning. 2. Hyperglycemia secondary to noncompliance with insulin. Better. Patient has long-standing history of diabetes mellitus. 3. Hyperkalemia secondary to hyperglycemia. 4. Hyponatremia. This is hypertonic in nature due to hyperglycemia. Corrected sodium is in normal range. 5. Chronic kidney disease mineral bone disease maintained on phosphate binders and Sensipar. 6. Hypertension with chronic kidney disease. 7. History of DVT and PE maintained on anticoagulation. Plan: Hemodialysis today. Thank you for the consultation. I will continue to follow the patient with you during his hospital stay.
[2019-04-27 11:28] LABS: Calcium 8.2 mg/dL (8.4-10.2); Potassium 4.2 mmol/L (3.5-5.1)
[2019-04-27 11:43] VITALS: BMI 39.9
[2019-04-27 13:02] LABS: Glucose,Whole Blood 163 mg/dL (75-99)
--- NOTE | 2019-04-27 15:37 | P.DS ---
Providers Date of admission: 04/26/19 13:19 Attending physician: Chapis Howard Consults: 04/26/19 13:19 Consult Physician Routine Consulting Provider: Michelle Medeiros Consult Reason/Comments: hyperkalemia, ESRD Do you want consulting provider notified?: Yes Primary care physician: George Sin [facility] Course: 48-year-old male with a multiple medical problems including end-stage renal disease with diabetic nephropathy diabetic retinopathy came in with blurry vision found to have elevated blood sugars of 600. Blood vision is secondary to hyperglycemia. Patient was also coming of lightheadedness polyuria and polydipsia. Patient has not been using his insulin at home on regular basis patient ran out of insulin about 4 months ago and he cannot afford the co-pay to see the primary doctor because of which she stopped using insulin. Patient denied any fever chills nausea vomiting. Patient the is incisional disease, dialysis dependent.'s also coming of generalized fatigue and dizziness 04/27/2019 patient blood sugars are well controlled today patient is clinically doing well symptoms of blurry vision completely resolved lightheadedness improved. Patient is undergoing hemodialysis after that patient will be discharged today. Prescriptions for his glucometer and test which was provided. PHYSICAL EXAMINATION: GENERAL: The patient is alert and oriented x3, not in any acute distress. Obese HEENT: Pupils are round and equally reacting to light. EOMI. No scleral icterus. No conjunctival pallor. Normocephalic, atraumatic. No pharyngeal erythema. No thyromegaly. CARDIOVASCULAR: S1 and S2 present. No murmurs, rubs, or gallops. PULMONARY: Chest is clear to auscultation, no wheezing or crackles. ABDOMEN: Soft, nontender, nondistended, normoactive bowel sounds. No palpable organomegaly. MUSCULOSKELETAL: No joint swelling or deformity. EXTREMITIES: No cyanosis, clubbing, or pedal edema. NEUROLOGICAL: Gross neurological examination did not reveal any focal deficits. SKIN: No rashes. Assessment and Plan Plan: -Lightheadedness, blurry vision: Secondary to hyperglycemia hyperglycemia is due to noncompliance improved now after resume his home regimen with the minimal changes. Patient was extensively counseled regarding importance of compliance with his medications. Patient will be discharged today to follow Dr. Vazquez as an outpatient -Hyponatremia hypovolemic hyponatremia patient will undergo regular hemodialysis nephrology was consulted -Hyperkalemia end-stage renal disease is contributing to his hyper kalemia along with hyperglycemia which is contributing to his hyperglycemia patient does not have any anion gap metabolic acidosis or hyperosmolar state at this time. -Diabetic nephropathy and end-stage renal disease patient will be resumed on his regular dialysis session and nephrology was consulted -Metabolic bone disease secondary to end-stage renal disease continue with PhosLo and sinacalcet -History of DVT and PE in the past for which patient is on Eliquis which will be resumed and continued next and-fibromyalgia -Sleep apnea patient will continue using his CPAP machine -Hypertension Patient Condition at Discharge: Fair Plan - Discharge Summary New Discharge Prescriptions: New INSULIN ASPART (NovoLOG) [NovoLOG (formulary)] 15 unit SQ AC-TID #3 vial Continue Sevelamer [Renvela] 2,400 mg PO AC-TID Carvedilol [Coreg] 12.5 mg PO BID Cinacalcet [Sensipar] 30 mg PO MOTUWETHFR Losartan Potassium 50 mg PO HS Furosemide [Lasix] 60 mg PO BID Apixaban [Eliquis] 2.5 mg PO BID Calcium Acetate [PhosLo] 1,334 mg PO TID Folic Acid-Vit B Complex-Vit C [Nephrocaps] 1 mg PO DAILY HYDROcodone/APAP 7.5-325MG [[place] 7.5-325] 1 tab PO Q8H PRN PRN Reason: Pain Insulin Glargine [Lantus] 50 unit SQ QAM #3 vial Discontinued Insulin Glulisine [Apidra] 10 unit SQ AC-TID Discharge Medication List Carvedilol [Coreg] 12.5 mg PO BID 03/02/18 [History] Sevelamer [Renvela] 2,400 mg PO AC-TID 03/02/18 [History] Cinacalcet [Sensipar] 30 mg PO MOTUWETHFR 11/13/18 [History] Furosemide [Lasix] 60 mg PO BID 11/13/18 [History] Losartan Potassium 50 mg PO HS 11/13/18 [History] Apixaban [Eliquis] 2.5 mg PO BID 04/26/19 [History] Calcium Acetate [PhosLo] 1,334 mg PO TID 04/26/19 [History] Folic Acid-Vit B Complex-Vit C [Nephrocaps] 1 mg PO DAILY 04/26/19 [History] HYDROcodone/APAP 7.5-325MG [[place] 7.5-325] 1 tab PO Q8H PRN 04/26/19 [History] INSULIN ASPART (NovoLOG) [NovoLOG (formulary)] 15 unit SQ AC-TID #3 vial 04/27/19 [Rx] Insulin Glargine [Lantus] 50 unit SQ QAM #3 vial 04/27/19 [Rx] Follow up Appointment(s)/Referral(s): Shailesh Vazquez MD [Primary Care Provider] - 05/03/19 1:30 pm (Please call to set up follow up appt.) Discharge Disposition: HOME SELF-CARE
[2019-04-27 17:14] LABS: Glucose,Whole Blood 123 mg/dL (75-99)
[2019-04-27] MEDS: HYDROcodone/APAP 7.5-325MG 1 EACH TAB PO PRN (17:16)
[2019-04-27 17:30] VITALS: BP 133/76; PULSE 74; RESP 16; TEMP 98
== END 2019-04-27 19:48 | disposition home or self-care (01) | DRG 637 ==
LOC: EC 10:24 → 4MS4W 13:19
PROVIDERS: ADMIT Internal Medicine; ATTEND Internal Medicine
PROC: 5A1D70Z Performance of Urinary Filtration, Intermittent, Less than 6 Hours Per Day (ICD-10-PCS; principal; 2019-04-27)
DX: E11.65 Type 2 diabetes mellitus with hyperglycemia (principal); N18.6 End stage renal disease; I12.0 Hypertensive chronic kidney disease with stage 5 chronic kidney disease or end stage renal disease; E87.1 Hypo-osmolality and hyponatremia; Z99.2 Dependence on renal dialysis; Z79.4 Long term (current) use of insulin; E11.22 Type 2 diabetes mellitus with diabetic chronic kidney disease; E11.319 Type 2 diabetes mellitus with unspecified diabetic retinopathy without macular edema; E11.40 Type 2 diabetes mellitus with diabetic neuropathy, unspecified; E86.1 Hypovolemia; E87.5 Hyperkalemia; E88.89 Other specified metabolic disorders; G47.33 Obstructive sleep apnea (adult) (pediatric); Z99.89 Dependence on other enabling machines and devices; H40.9 Unspecified glaucoma; H54.61 Unqualified visual loss, right eye, normal vision left eye; Z86.718 Personal history of other venous thrombosis and embolism; Z86.711 Personal history of pulmonary embolism; Z79.01 Long term (current) use of anticoagulants; M79.7 Fibromyalgia; M89.8X9 Other specified disorders of bone, unspecified site; Z79.899 Other long term (current) drug therapy; Z80.52 Family history of malignant neoplasm of bladder; Z82.49 Family history of ischemic heart disease and other diseases of the circulatory system; Z83.3 Family history of diabetes mellitus; T38.3X6A Underdosing of insulin and oral hypoglycemic [antidiabetic] drugs, initial encounter; Z91.120 Patient's intentional underdosing of medication regimen due to financial hardship; Z91.19 Patient's noncompliance with other medical treatment and regimen; Z71.89 Other specified counseling; M21.372 Foot drop, left foot; Z86.14 Personal history of Methicillin resistant Staphylococcus aureus infection; H53.8 Other visual disturbances; Z91.010 Allergy to peanuts
CPT/HCPCS: 36415; 71046; 80048; 80053; 81001; 82550; 83605; 83735; 84484; 85025; 85610; 85730; 90935; 93005; 99285

== ENCOUNTER 2019-05-15 06:58 | Emergency (ER) | payer MEDICARE, OTHER ==
[2019-05-15 07:16] VITALS: RESP 18; TEMP 98.7
[2019-05-15] MEDS ORDERED: DIAZEPAM 5 MG/ML 2 ML INJ IM ONE (07:38)
[2019-05-15] MEDS ORDERED: methylPREDNISolone SOD SUCCI 125 MG/2 ML VIAL IM ONE (07:38)
--- NOTE | 2019-05-15 07:41 | ED ---
Back Pain HPI - General Chief Complaint: Back Pain/Injury Stated Complaint: Back pain Time Seen by Provider: 05/15/19 07:22 Source: patient, RN notes reviewed, old records reviewed Limitations: no limitations - History of Present Illness Initial Comments: Patient is a 48-year-old male with history of diabetes, fibroMyalgia, hypertension, renal disease, recently was discharged from [facility] after receiving hemodialysis shunt. Patient reports that approximately 2 weeks ago he tripped, injuring his lower back. He reports that since that time with certain movements he is felt something clicking and popping within his back. Patient states that he has worsening pain over the left lumbar paraspinal muscles. Patient denies any associated abdominal pain, fevers or chills. Denies any saddle anesthesias. He reports pain is worse with standing and bending down. - Related Data Home Medications Medication Instructions Recorded Confirmed Carvedilol [Coreg] 12.5 mg PO BID 03/02/18 05/15/19 Sevelamer [Renvela] 2,400 mg PO AC-TID 03/02/18 05/15/19 Cinacalcet [Sensipar] 30 mg PO MOTUWETHFR 11/13/18 05/15/19 Furosemide [Lasix] 60 mg PO BID 11/13/18 05/15/19 Losartan Potassium 50 mg PO HS 11/13/18 05/15/19 Apixaban [Eliquis] 2.5 mg PO BID 04/26/19 05/15/19 Calcium Acetate [PhosLo] 1,334 mg PO TID 04/26/19 05/15/19 Folic Acid-Vit B Complex-Vit C 1 mg PO DAILY 04/26/19 05/15/19 [Nephrocaps] HYDROcodone/APAP 7.5-325MG [[place] 1 tab PO Q8H PRN 04/26/19 05/15/19 7.5-325] methylPREDNISolone [Medrol Dose See Taper PO DIRECTED 05/15/19 05/15/19 Pack] Previous Rx's Medication Instructions Recorded INSULIN ASPART (NovoLOG) [NovoLOG 15 unit SQ AC-TID #3 vial 04/27/19 (formulary)] Insulin Glargine [Lantus] 50 unit SQ QAM #3 vial 04/27/19 Methocarbamol [Robaxin] 750 mg PO QID #15 tab 05/15/19 Allergies Allergy/AdvReac Type Severity Reaction Status Date / Time peanut Allergy Anaphylaxis Verified 05/15/19 08:25 Review of Systems ROS Statement: Those systems with pertinent positive or pertinent negative responses have been documented in the HPI. ROS Other: All systems not noted in ROS Statement are negative. Past Medical History Past Medical History: Diabetes Mellitus, Eye Disorder, Fibromyalgia, Hypertension, Pneumonia, Pulmonary Embolus (PE), Renal Disease, Sleep Apnea/CPAP/BIPAP Additional Past Medical History / Comment(s): IDDM type II, DKA, neuropathy bilateral feet, obesity, chronic renal failure stage IV secondary to DM, normocytic anemia, chronic lower back and shoulders pain, herniated lumbar disk, glaucoma R eye, carpal tunnel syndrome bilaterally, bronchitis, PAULA with CPAP, folliculitis chest, abscesses to back and R groin with I&Ds. Left drop foot History of Any Multi-Drug Resistant Organisms: MRSA Date of last positivie culture/infection: 11/21/12 MDRO Source:: lower back Past Surgical History: Orthopedic Surgery Additional Past Surgical History / Comment(s): Incision and drainage back and R groin r/t abcesses removed, bilateral eye surgery for retinal repair, R eye surgery for glaucoma-has a drain in place. Past Anesthesia/Blood Transfusion Reactions: Postoperative Nausea & Vomiting (PONV) Additional Past Anesthesia/Blood Transfusion Reaction / Comment(s): pt stated has recieved blood transfusions-no known reaction. Past Psychological History: No Psychological Hx Reported Smoking Status: Never smoker Past Alcohol Use History: None Reported Past Drug Use History: None Reported - Past Family History Father Family Medical History: Diabetes Mellitus, Hypertension Additional Family Medical History / Comment(s): Bladder cancer in father. Father at the age of 78 from bladder cancer complications. Mother Additional Family Medical History / Comment(s): Mother of brain aneurysm General Exam - General Exam Comments Initial Comments: 48-year-old male. No distress. Limitations: no limitations General appearance: alert, in no apparent distress Head exam: Present: atraumatic, normocephalic, normal inspection Eye exam: Present: normal appearance, PERRL, EOMI. Absent: scleral icterus, conjunctival injection, periorbital swelling ENT exam: Present: normal exam, mucous membranes moist Neck exam: Present: normal inspection. Absent: tenderness, meningismus, lymphadenopathy Respiratory exam: Present: normal lung sounds bilaterally. Absent: respiratory distress, wheezes, rales, rhonchi, stridor Cardiovascular Exam: Present: regular rate, normal rhythm, normal heart sounds. Absent: systolic murmur, diastolic murmur, rubs, gallop, clicks GI/Abdominal exam: Present: soft, normal bowel sounds. Absent: distended, tenderness, guarding, rebound, rigid Extremities exam: Present: normal inspection, full ROM, normal capillary refill. Absent: tenderness, pedal edema, joint swelling, calf tenderness Back exam: Present: normal inspection, tenderness (Patient some lumbar spinal tenderness. Paraspinal left-sided tenderness, muscle spasm.) Neurological exam: Present: alert, oriented X3, CN II-XII intact Psychiatric exam: Present: normal affect, normal mood Skin exam: Present: warm, dry, intact, normal color. Absent: rash Course Vital Signs 05/15/19 07:11 Temperature 98.7 F Pulse Rate 86 Respiratory 18 Rate Blood Pressure 149/85 O2 Sat by Pulse 96 Oximetry Medical Decision Making - Medical Decision Making 48-year-old male present with lower back pain over the lumbar spine and left paraspinal muscles. Symptoms started 2 weeks ago after a fall. The same patient's lumbar spine x-ray was negative for any acute process. There is evidence of degenerative disc disease. Patient's pain is worse with movement. Patient at this time reports he is able to bear weight and stand but is painful. He states that his large motion of his legs. He has normal sensation distally. At this time Patient was given IM Valium and Solu-Medrol. He is a dialysis Patient and scheduled for dialysis tomorrow. Patient is taking his at home [place]. He discussed this time with a pinched nerve and he needs follow-up with back specialist. His pain seems to be muscle skeletal nature worse with movement. Denies abdominal pain fevers or chills. Patient advised close follow-up with primary care doctor. Discussed case with Dr. Streeter. - Radiology Data Radiology results: report reviewed No acute fracture subluxation. Degenerative disc disease and facet arthropathy. Correlate with plain film prior to any intervention. Disposition Clinical Impression: Mechanical back pain, Lumbar paraspinal muscle spasm Disposition: HOME SELF-CARE Condition: Good Instructions (If sedation given, give patient instructions): Acute Low Back Pain (ED) Additional Instructions: Patient was close follow-up with primary care doctor and ortho it technical support specialist. Return to the emergency department if any alarming signs or symptoms occur. Prescriptions: Methocarbamol [Robaxin] 750 mg PO QID #15 tab Is patient prescribed a controlled substance at d/c from ED?: No Referrals: Shailesh Vazquez MD [Primary Care Provider] - 1-2 days Eleazar Rai DO [Doctor of Osteopathic Medicine] - 1-2 days Time of Disposition: 08:36
--- NOTE | 2019-05-15 08:05 | XR ---
Lumbar spine HISTORY: Low back pain, trauma 2 weeks prior 3 views of the lumbar spine Correlation to prior exam 07/19/2018 6 nonrib-bearing lumbar segments are again seen, there is a mild spinal curvature present. Loss of di sc height present greatest at the lumbosacral junction. Lumbar vertebral bodies show preserved height , alignment, bone mineralization. There is multilevel spondylosis. Sclerosis present in the posterior elements just facet arthropathy. IMPRESSION: No acute fracture or subluxation. Degenerative disc disease and facet arthropathy. Correl ate with plain film prior to any intervention.
[2019-05-15 08:48] VITALS: BP 131/79; PULSE 80
== END 2019-05-15 08:52 | disposition home or self-care (01) ==
LOC: EC 06:58
DX: M62.830 Muscle spasm of back (principal); M51.36 Other intervertebral disc degeneration, lumbar region; G47.33 Obstructive sleep apnea (adult) (pediatric); E11.22 Type 2 diabetes mellitus with diabetic chronic kidney disease; E11.40 Type 2 diabetes mellitus with diabetic neuropathy, unspecified; I12.9 Hypertensive chronic kidney disease with stage 1 through stage 4 chronic kidney disease, or unspecified chronic kidney disease; N18.4 Chronic kidney disease, stage 4 (severe); H40.9 Unspecified glaucoma; G89.29 Other chronic pain; E66.9 Obesity, unspecified; Z68.39 Body mass index [BMI] 39.0-39.9, adult; Z79.899 Other long term (current) drug therapy; Z79.01 Long term (current) use of anticoagulants; Z79.52 Long term (current) use of systemic steroids; Z91.010 Allergy to peanuts; Z86.14 Personal history of Methicillin resistant Staphylococcus aureus infection; Z86.711 Personal history of pulmonary embolism; Z86.2 Personal history of diseases of the blood and blood-forming organs and certain disorders involving the immune mechanism; Z99.89 Dependence on other enabling machines and devices; Z99.2 Dependence on renal dialysis
CPT/HCPCS: 72100; 99284; 96372 ×2; J2930; J3360

== ENCOUNTER 2019-12-22 07:40 | Inpatient (IN) | payer MEDICARE, OTHER ==
[2019-12-22] MEDS ORDERED: SODIUM CHLORIDE 0.9% 1,000 ML IV STA (08:01)
[2019-12-22] MEDS ORDERED: ASPIRIN 81 MG PO STA (08:01)
--- NOTE | 2019-12-22 08:04 | ED ---
Chest Pain HPI - General Chief Complaint: Chest Pain Stated Complaint: chest pain Time Seen by Provider: 12/22/19 07:52 Source: patient, RN notes reviewed, old records reviewed Mode of arrival: ambulatory Limitations: no limitations - History of Present Illness Initial Comments: Patient is a 49-year-old male, with history of end-stage renal disease on d ialysis. He received dialysis yesterday evening. He presents today with onset of chest pain around 4:00 this morning. Also had some episodes of diarrhea, and complains of a headache. He reports that he is feeling dizzy and lightheaded as well. Patient states that he has had no fevers associated with this. Patinet reports left sided chest and abdominal pain. Patient denies history of cardiac stents. Patient states he is not on blood thinners. Patient denies dyspnea. - Related Data Home Medications Medication Instructions Recorded Confirmed Carvedilol [Coreg] 12.5 mg PO BID 03/02/18 05/15/19 Sevelamer [Renvela] 2,400 mg PO AC-TID 03/02/18 05/15/19 Furosemide [Lasix] 60 mg PO BID 11/13/18 05/15/19 Losartan Potassium 50 mg PO HS 11/13/18 05/15/19 Calcium Acetate [PhosLo] 1,334 mg PO TID 04/26/19 05/15/19 Folic Acid-Vit B Complex-Vit C 1 mg PO DAILY 04/26/19 05/15/19 [Nephrocaps] HYDROcodone/APAP 7.5-325MG [[place] 1 tab PO Q8H PRN 04/26/19 05/15/19 7.5-325] INSULIN LISPRO (humaLOG) [humaLOG] 10 units SQ AC-TID 12/22/19 12/22/19 Insulin Detemir (Levemir) [Levemir] 60 unit SQ DAILY 12/22/19 12/22/19 [place]-Lori 1 tab PO DAILY 12/22/19 12/22/19 Allergies Allergy/AdvReac Type Severity Reaction Status Date / Time peanut Allergy Anaphylaxis Verified 12/22/19 09:42 Review of Systems ROS Statement: Those systems with pertinent positive or pertinent negative responses have been documented in the HPI. ROS Other: All systems not noted in ROS Statement are negative. EKG Findings - EKG Comments: EKG Findings:: EKG shows normal sinus rhythm normal ECG. Ventricular rate of 92 bpm. Intervals 178 ms. QRS duration is 80 ms. QT QTc is 376/[address] elevation. Past Medical History Past Medical History: Diabetes Mellitus, Eye Disorder, Fibromyalgia, Hypertension, Pneumonia, Pulmonary Embolus (PE), Renal Disease, Sleep Apnea/CPAP/BIPAP Additional Past Medical History / Comment(s): IDDM type II, DKA, neuropathy bilateral feet, obesity, chronic renal failure stage IV secondary to DM, normocytic anemia, chronic lower back and shoulders pain, herniated lumbar disk, glaucoma R eye, carpal tunnel syndrome bilaterally, bronchitis, PAULA with CPAP, folliculitis chest, abscesses to back and R groin with I&Ds. Left drop foot History of Any Multi-Drug Resistant Organisms: MRSA Date of last positivie culture/infection: 11/21/12 MDRO Source:: lower back Past Surgical History: Orthopedic Surgery Additional Past Surgical History / Comment(s): Incision and drainage back and R groin r/t abcesses removed, bilateral eye surgery for retinal repair, R eye surgery for glaucoma-has a drain in place. Past Anesthesia/Blood Transfusion Reactions: Postoperative Nausea & Vomiting (PONV) Additional Past Anesthesia/Blood Transfusion Reaction / Comment(s): pt stated has recieved blood transfusions-no known reaction. Past Psychological History: No Psychological Hx Reported Smoking Status: Never smoker Past Alcohol Use History: None Reported Past Drug Use History: None Reported - Past Family History Father Family Medical History: Diabetes Mellitus, Hypertension Additional Family Medical History / Comment(s): Bladder cancer in father. Father at the age of 78 from bladder cancer complications. Mother Additional Family Medical History / Comment(s): Mother of brain aneurysm General Exam - General Exam Comments Initial Comments: 49-year-old -[place] male. Limitations: no limitations General appearance: alert, in no apparent distress Head exam: Present: atraumatic, normocephalic, normal inspection Eye exam: Present: normal appearance, PERRL, EOMI. Absent: scleral icterus, conjunctival injection, periorbital swelling ENT exam: Present: normal exam, mucous membranes moist Neck exam: Present: normal inspection. Absent: tenderness, meningismus, lymphadenopathy Respiratory exam: Present: normal lung sounds bilaterally. Absent: respiratory distress, wheezes, rales, rhonchi, stridor Cardiovascular Exam: Present: regular rate, normal rhythm, normal heart sounds. Absent: systolic murmur, diastolic murmur, rubs, gallop, clicks GI/Abdominal exam: Present: soft, tenderness (left chest and abdominal tenderness), normal bowel sounds. Absent: distended, guarding, rebound, rigid Extremities exam: Present: normal inspection, full ROM, normal capillary refill. Absent: tenderness, pedal edema, joint swelling, calf tenderness Back exam: Present: normal inspection Neurological exam: Present: alert, oriented X3, CN II-XII intact Psychiatric exam: Present: normal affect, normal mood Course Vital Signs 12/22/19 12/22/19 12/22/19 07:46 07:51 08:51 Temperature 98.4 F Pulse Rate 92 88 Respiratory 18 20 20 Rate Blood Pressure 150/87 146/95 O2 Sat by Pulse 97 95 Oximetry 12/22/19 09:00 Temperature Pulse Rate 89 Respiratory 20 Rate Blood Pressure 149/84 O2 Sat by Pulse 95 Oximetry Chest Pain MDM - MDM 49-year-old male presents emergency Department today with diarrhea, left-sided chest pain and abdominal pain. Lab work was reviewed and EKG was reviewed. EKG is negative for any acute changes. Troponin was 0.02. He denies any dyspnea. Chest x-ray is negative for any acute process. Patient was found to have elevated lipase of greater than 1000. Patient was informed of these results concerned that his diarrhea and nausea complaints are probably related to pancreatitis. He also had elevated blood glucose of 500. Patient is given IV insulin. Due to being on dialysis a shot received maintenance rates of fluids at this time, no significant bolus. Patient's case was discussed with Dr. Burns who is agreeable for admission. Case was discussed with [facility] hospitalist. Disposition Clinical Impression: Pancreatitis, Chest pain, End stage renal disease, Dialysis patient, Diarrhea Disposition: ADMITTED IP TO THIS HOSP Condition: Stable Is patient prescribed a controlled substance at d/c from ED?: No Referrals: Shailesh Vazquez MD [Primary Care Provider] - 1-2 days Time of Disposition: 09:58
[2019-12-22] MEDS ORDERED: MORPHINE SULFATE 4 MG/ML SYRINGE IVP STA (08:21)
[2019-12-22 08:32] LABS: Basophils # (A) 0.1 k/uL (0-0.2); Basophils % (A) 2 %; Eosinophils # (A) 0.1 k/uL (0-0.7); Eosinophils % (A) 2 %; HCT 38.8 % (39.0-53.0); HGB 12.6 gm/dL (13.0-17.5); Lymphocytes # (A) 1.6 k/uL (1.0-4.8); Lymphocytes % (A) 29 %; MCH 29.1 pg (25.0-35.0); MCHC 32.4 g/dL (31.0-37.0); MCV 89.8 fL (80.0-100.0); Monocytes # (A) 0.3 k/uL (0-1.0); Monocytes % (A) 5 %; Neutrophils # (A) 3.4 k/uL (1.3-7.7); Neutrophils % (A) 61 %; Platelet Count 152 k/uL (150-450); RBC 4.32 m/uL (4.30-5.90); RDW 12.8 % (11.5-15.5); WBC 5.6 k/uL (3.8-10.6)
[2019-12-22 08:44] LABS: Albumin 4.1 g/dL (3.5-5.0); Calcium 9.2 mg/dL (8.4-10.2); Total Bilirubin 1.2 mg/dL (0.2-1.3); Total Protein 7.3 g/dL (6.3-8.2)
[2019-12-22 08:49] LABS: Partial Thromboplastin Time 23.3 sec (22.0-30.0)
[2019-12-22 08:51] LABS: Potassium 5.1 mmol/L (3.5-5.1)
--- NOTE | 2019-12-22 08:52 | XR ---
EXAMINATION TYPE: XR chest 2V DATE OF EXAM: 12/22/2019 COMPARISON: 04/26/2019 TECHNIQUE: PA and lateral views submitted. HISTORY: Chest pain FINDINGS: The lungs are clear and there is no pneumothorax, pleural effusion, or focal pneumonia. No overt fa ilure. Heart size normal. IMPRESSION: 1. No acute process.
[2019-12-22] MEDS ORDERED: ONDANSETRON 4 MG/2 ML VIAL IVP STA (09:18)
[2019-12-22] MEDS ORDERED: INSULIN REGULAR 100 UNIT/ML VIAL IV ONE (09:52)
[2019-12-22] MEDS ORDERED: NALOXONE 0.4 MG/ML 1 ML VIAL IV PRN (09:59)
[2019-12-22] MEDS ORDERED: ACETAMINOPHEN TAB 325 MG TAB PO PRN (09:59)
[2019-12-22] MEDS ORDERED: HYDROmorphone 0.5 MG/0.5 ML SYRINGE IVP PRN (09:59)
[2019-12-22] MEDS ORDERED: MORPHINE SULFATE 4 MG/ML SYRINGE IV PRN (09:59)
[2019-12-22] MEDS ORDERED: ONDANSETRON 4 MG/2 ML VIAL IVP PRN (09:59)
[2019-12-22] MEDS ORDERED: NITROGLYCERIN SL TABS 0.4 MG TAB SUBLINGUAL PRN (10:02)
[2019-12-22 12:16] LABS: Glucose,Whole Blood 360 mg/dL (75-99)
[2019-12-22] MEDS: INSULIN DETEMIR (LEVEMIR) 100 UNIT/ML SYR SQ SCH (14:35)
--- NOTE | 2019-12-22 15:51 | US ---
EXAMINATION TYPE: US gallbladder DATE OF EXAM: 12/22/2019 COMPARISON: CT & US CLINICAL HISTORY: pancreatitis, r/o stones. Pt states epigastric pain EXAM MEASUREMENTS: Liver Length: 18.4 cm Gallbladder Wall: 0.3 cm CBD: 0.5 cm Right Kidney: 9.1 x 4.4 x 4.6 cm Large pt body habitus, very gassy, difficult exam Pancreas: Obscured by bowel gas Liver: Enlarged, difficult to penetrate, left lobe essentially gassed out Gallbladder: Lumen clear, slightly contracted, pt states he is NPO, wall thickness upper limits of n ormal Evidence for sonographic Callejas's sign: No CBD: wnl Right Kidney: wnl, lower pole gassed out IMPRESSION: 1. Hepatomegaly with coarsened liver which be seen with hepatic steatosis, hepatitis or diffuse hepat ocellular disease. 2. No evidence of gallstones.
[2019-12-22 17:47] LABS: Glucose,Whole Blood 315 mg/dL (75-99)
[2019-12-22 18:55] LABS: Glucose,Whole Blood 231 mg/dL (75-99)
[2019-12-22] MEDS: SEVELAMER 800 MG TAB PO SCH (18:57)
[2019-12-22] MEDS: INSULIN ASPART (NovoLOG) 100 UNIT/ML VIAL SQ SCH (19:38)
[2019-12-22 20:53] LABS: Glucose,Whole Blood 227 mg/dL (75-99)
--- NOTE | 2019-12-22 22:08 | P.CONS ---
History of Present Illness - Reason for Consult Consult date: 12/22/19 Pancreatitis Requesting physician: Devan Adler - Chief Complaint Chest pain - History of Present Illness 49-year-old male with multiple medical comorbidities including diabetes mellitus, end-stage renal disease on hemodialysis therapy, neuropathy, hypertension, fibromyalgia, glaucoma and PAULA presented to the hospital with complaints of chest pain. 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 On further questioning he reports pain was in the lower chest in upper abdomen/epigastric region of his abdomen. He describes the pain as sharp and burning in sensation. Pain wraps around into his back. No prior episodes of similar pain. Cardiac workup had been negative to date. He denied any vomiting today have some associated nausea. He also reports multiple episodes of nonbloody loose bowel movements. On presentation to the hospital he was found to have significant elevations in lipase at 1328, amylase 131, WBC 5.6, hemoglobin 12.6, platelet count 152,000, total bilirubin 1.2, alkaline phosphatase 239, AST 30 and ALT 16. Patient denies any alcohol use or history of cholelithiasis or gallbladder pathology. Currently he is seen lying in bed reporting abdominal pain is somewhat improved. Review of Systems REVIEW OF SYSTEMS: CONSTITUTIONAL: Denies any fevers, chills, weight change or fatigue. CARDIOVASCULAR: Denies any chest pain, palpitations high or low blood pressures RESPIRATORY: Denies any shortness of breath, hemoptysis or cough. GENITOURINARY: No dysuria or hematuria, patient has a history of end-stage renal disease on hemodialysis. MUSCULOSKELETAL: No weakness reported. SKIN: Denies any new rashes or lesions, jaundice or pallor. PSYCHIATRIC: Denies any depression or anxiety. NEUROLOGY: Denies headache, denies any new focal deficits. EARS/NOSE/THROAT: No recent hearing change, congestion, nasal discharge or sore throat. EYES: No pain in eyes, discharge or change in vision, known history of glaucoma affecting the vision in his right eye. GASTROINTESTINAL: As per HPI. Past Medical History Past Medical History: Diabetes Mellitus, Eye Disorder, Fibromyalgia, Hypertension, Pneumonia, Pulmonary Embolus (PE), Renal Disease, Sleep Apnea/CPAP/BIPAP Additional Past Medical History / Comment(s): IDDM type II, DKA, neuropathy bilateral feet, obesity, chronic renal failure stage IV secondary to DM, normocytic anemia, chronic lower back and shoulders pain, herniated lumbar disk, glaucoma R eye, carpal tunnel syndrome bilaterally, bronchitis, PAULA with CPAP, folliculitis chest, abscesses to back and R groin with I&Ds. Left drop foot History of Any Multi-Drug Resistant Organisms: MRSA Year Discovered:: 11/21/12 MDRO Source:: lower back Past Surgical History: Orthopedic Surgery Additional Past Surgical History / Comment(s): Incision and drainage back and R groin r/t abcesses removed, bilateral eye surgery for retinal repair, R eye surgery for glaucoma-has a drain in place. Past Anesthesia/Blood Transfusion Reactions: Postoperative Nausea & Vomiting (PONV) Additional Past Anesthesia/Blood Transfusion Reaction / Comm: pt stated has recieved blood transfusions-no known reaction. Past Psychological History: No Psychological Hx Reported Smoking Status: Never smoker Past Alcohol Use History: None Reported Past Drug Use History: None Reported - Past Family History Father Family Medical History: Diabetes Mellitus, Hypertension Additional Family Medical History / Comment(s): Bladder cancer in father. F ather at the age of 78 from bladder cancer complications. Mother Additional Family Medical History / Comment(s): Mother of brain aneurysm Medications and Allergies Home Medications Medication Instructions Recorded Confirmed Type Carvedilol [Coreg] 25 mg PO DIRECTED 03/02/18 12/22/19 History Sevelamer [Renvela] 3,200 mg PO AC-TID 03/02/18 12/22/19 History Furosemide [Lasix] 60 mg PO BID 11/13/18 12/22/19 History Losartan Potassium 50 mg PO HS 11/13/18 12/22/19 History Calcium Acetate [PhosLo] 667 mg PO DAILY 04/26/19 12/22/19 History Folic Acid-Vit B Complex-Vit C 1 mg PO DAILY 04/26/19 12/22/19 History [Nephrocaps] HYDROcodone/APAP 7.5-325MG [[place] 1 tab PO Q8H PRN 04/26/19 12/22/19 History 7.5-325] INSULIN LISPRO (humaLOG) [humaLOG] 10 units SQ AC-TID 12/22/19 12/22/19 History Insulin Detemir (Levemir) [Levemir] 60 unit SQ DAILY 12/22/19 12/22/19 History Lidocaine-Prilocaine Cream [[place] 1 applic TOPICAL DIRECTED PRN 12/22/19 12/22/19 History Cream 2.5%/2.5%] Midodrine [ProAmatine] 5 mg PO MOWEFR 12/22/19 12/22/19 History [place]-Lori 1 tab PO DAILY 12/22/19 12/22/19 History Allergies Allergy/AdvReac Type Severity Reaction Status Date / Time peanut Allergy Anaphylaxis Verified 12/22/19 09:42 Physical Exam Vitals: Vital Signs Temp Pulse Resp BP Pulse Ox 12/22/19 13:30 16 121/77 97 12/22/19 12:00 80 16 119/77 97 12/22/19 11:00 93 20 149/84 95 12/22/19 10:00 89 20 140/78 95 12/22/19 09:00 83 20 146/95 97 12/22/19 08:51 88 20 146/95 95 12/22/19 08:30 91 19 99 12/22/19 07:51 20 12/22/19 07:46 98.4 F 92 18 150/87 97 Intake and Output 12/21/19 12/22/19 12/22/19 22:59 06:59 14:59 Other: Weight 138.346 kg On physical examination, patient appears comfortable in no apparent distress. HEAD: Normocephalic, atraumatic. EYES: No scleral icterus. No conjunctival injection. Ptosis noted in the right eye. MOUTH: No lesions, tongue midline. NECK: Trachea midline, no gross abnormalities. CHEST: Clear to auscultation with no wheezing or rhonchi appreciated. HEART: Regular rate and rhythm. ABDOMEN: Soft, obese and mildly tender to palpation. Bowel sounds are positive. No organomegaly. No guarding or rigidity. EXTREMITIES: No pedal edema. SKIN: No rashes, no jaundice. NEUROLOGIC: Alert and oriented x3. Results CBC & Chem 7: 12/22/19 08:01 12/22/19 08:01 Labs: Abnormal Lab Results - Last 24 Hours (Table) 12/22/19 12/22/19 12/22/19 Range/Units 08:01 08:01 12:14 Hgb 12.6 L (13.0-17.5) gm/dL Hct 38.8 L (39.0-53.0) % Sodium 136 L (137-145) mmol/L BUN 44 H (9-20) mg/dL Creatinine 4.81 H (0.66-1.25) mg/dL Glucose 508 H* (74-99) mg/dL POC Glucose (mg/dL) 360 H (75-99) mg/dL Alkaline Phosphatase 239 H (38-126) U/L Amylase 131 H (30-110) U/L Lipase 1320 H (23-300) U/L US - abdomen: report reviewed (Ultrasound of the abdomen with finding of coarsened liver echotexture without evidence of cholelithiasis or CBD dilation.) Assessment and Plan (1) Pancreatitis Narrative/Plan: 49-year-old male with multiple medical comorbidities presenting to the hospital with chest and epigastric abdominal pain described as sharp and burning in sensation wrapping to his back found to have associated elevation in his lipase at 1320 currently admitted for treatment of acute uncomplicated pancreatitis. Ultrasound of the abdomen performed with no finding of gallbladder pathology. No elevation in liver enzymes suggests choledocholithiasis and CBD within normal limits on ultrasound of the abdomen. Denies any recent exposures. Denies any regular alcohol use. No prior episodes of pancreatitis. Current Visit: Yes Status: Acute Code(s): K85.90 - ACUTE PANCREATITIS WITHOUT NECROSIS OR INFECTION, UNSP SNOMED Code(s): 98357724 (2) Diarrhea Current Visit: Yes Status: Acute Code(s): R19.7 - DIARRHEA, UNSPECIFIED SNOMED Code(s): 38299986 Plan: Supportive care Gentle fluid hydration in the setting of end-stage renal disease Okay for clear liquid diet Ultrasound of the abdomen ordered Triglyceride level ordered Pain management Encourage ambulation No plans for endoscopic evaluation at this time If patient has persistent diarrhea further stool studies will be ordered Thank you for allowing us to participate in the care of the patient, we will continue to follow
--- NOTE | 2019-12-22 22:44 | P.HPIM ---
History of Present Illness H&P Date: 12/22/19 Chief Complaint: Abdominal pain Patient is a 49-year-old male with a known history of ESRD on hemodialysis TTS, diabetes type 2 insulin-dependent, hypertension, fibromyalgia, history of PE, obstructive sleep apnea, diabetic peripheral neuropathy and other multiple medical problems came to ER with complaints of chest pain and epigastric abdominal pain and also pain below the left breast margin. Patient started around 4:30 AM. Associated with nausea. Patient did have some radiation of the pain is related to the back. Patient did have diarrhea and headache as well. D enied any fever or chills. No commerce of radiation of the pain. Denied any history of prior pancreatitis. Lipase level elevated to 1328, amylase 131, WBC 5.6, hemoglobin 0.6 and platelets 152, bilirubin 1.2 alk phos 238 AST 30 and ALT 16 Chest x-ray showed no acute cardiopulmonary process EKG showed normal sinus rhythm. Ultrasound of ABDOMEN WAS ORDERED. Review of Systems Constitutional: Patient denies any fever or chills . No generalized weakness or weight loss. Abdomen: Patient denied nausea vomiting and diarrhea . Patient does have epig astric and left upper quadrant abdominal pain. Cardiovascular: Patient denies any chest pain or short of breath no palpitations. Respiratory: patient denied any cough is from production. No shortness of breath Neurologic: Patient denied any numbness or tingling headache. Musculoskeletal: Patient denies any complaints of joint swelling or deformity. Skin: Negative Psychiatric: Negative Endocrine: No heat or cold intolerance. No recent weight gain. Genitourinary: No dysuria or hematuria. All other 14 point ROS negative except the above Past Medical History Past Medical History: Diabetes Mellitus, Eye Disorder, Fibromyalgia, Hypertension, Pneumonia, Pulmonary Embolus (PE), Renal Disease, Sleep Apnea/CPAP/BIPAP Additional Past Medical History / Comment(s): IDDM type II, DKA, neuropathy bilateral feet, obesity, chronic renal failure stage IV secondary to DM, normocytic anemia, chronic lower back and shoulders pain, herniated lumbar disk, glaucoma R eye, carpal tunnel syndrome bilaterally, bronchitis, PAULA with CPAP, folliculitis chest, abscesses to back and R groin with I&Ds. Left drop foot History of Any Multi-Drug Resistant Organisms: MRSA Date of last positivie culture/infection: 11/21/12 MDRO Source:: lower back Past Surgical History: Orthopedic Surgery Additional Past Surgical History / Comment(s): Incision and drainage back and R groin r/t abcesses removed, bilateral eye surgery for retinal repair, R eye surgery for glaucoma-has a drain in place. Past Anesthesia/Blood Transfusion Reactions: Postoperative Nausea & Vomiting (PONV) Additional Past Anesthesia/Blood Transfusion Reaction / Comment(s): pt stated has recieved blood transfusions-no known reaction. Past Psychological History: No Psychological Hx Reported Smoking Status: Never smoker Past Alcohol Use History: None Reported Past Drug Use History: None Reported - Past Family History Father Family Medical History: Diabetes Mellitus, Hypertension Additional Family Medical History / Comment(s): Bladder cancer in father. Father at the age of 78 from bladder cancer complications. Mother Additional Family Medical History / Comment(s): Mother of brain aneurysm Medications and Allergies Home Medications Medication Instructions Recorded Confirmed Type Carvedilol [Coreg] 25 mg PO DIRECTED 03/02/18 12/22/19 History Sevelamer [Renvela] 3,200 mg PO AC-TID 03/02/18 12/22/19 History Furosemide [Lasix] 60 mg PO BID 11/13/18 12/22/19 History Losartan Potassium 50 mg PO HS 11/13/18 12/22/19 History Calcium Acetate [PhosLo] 667 mg PO DAILY 04/26/19 12/22/19 History Folic Acid-Vit B Complex-Vit C 1 mg PO DAILY 04/26/19 12/22/19 History [Nephrocaps] HYDROcodone/APAP 7.5-325MG [[place] 1 tab PO Q8H PRN 04/26/19 12/22/19 History 7.5-325] INSULIN LISPRO (humaLOG) [humaLOG] 10 units SQ AC-TID 12/22/19 12/22/19 History Insulin Detemir (Levemir) [Levemir] 60 unit SQ DAILY 12/22/19 12/22/19 History Lidocaine-Prilocaine Cream [Emla 1 applic TOPICAL DIRECTED PRN 12/22/19 12/22/19 History Cream 2.5%/2.5%] Midodrine [ProAmatine] 5 mg PO MOWEFR 12/22/19 12/22/19 History [place]-Lori 1 tab PO DAILY 12/22/19 12/22/19 History Allergies Allergy/AdvReac Type Severity Reaction Status Date / Time peanut Allergy Anaphylaxis Verified 12/22/19 09:42 Physical Exam Vitals: Vital Signs Temp Pulse Resp BP Pulse Ox 12/22/19 12:00 80 16 119/77 97 12/22/19 11:00 93 20 149/84 95 12/22/19 10:00 89 20 140/78 95 12/22/19 09:00 83 20 146/95 97 12/22/19 08:51 88 20 146/95 95 12/22/19 08:30 91 19 99 12/22/19 07:51 20 12/22/19 07:46 98.4 F 92 18 150/87 97 Intake and Output 12/21/19 12/22/19 12/22/19 22:59 06:59 14:59 Other: Weight 138.346 kg PHYSICAL EXAMINATION: Patient is lying in the bed comfortably, no acute distress, awake alert and oriented.. HEENT: Normocephalic. Neck is supple. Pupils reactive. Nostrils clear. Oral cavity is moist. Ears reveal no drainage. Neck reveals no JVD, carotid bruits, or thyromegaly. CHEST EXAMINATION: Trachea is central. Symmetrical expansion. Bibasilar diminished air entry. Lung bryant clear to auscultation and percussion. CARDIAC: Normal S1, S2 with no gallops. No murmurs ABDOMEN: Soft. Epigastric tenderness. Bowel sounds normal. No organomegaly. No abdominal bruits. Extremities: reveal no edema. No clubbing or cyanosis Neurologically awake, alert, oriented x3 with well-coordinated movements. No focal deficits noted Skin: No rash or skin lesions. Psychiatric: Coperative. Nonsuicidal Musculoskeletal: No joint swelling or deformity. Normal range of motion. Results CBC & Chem 7: 12/22/19 08:01 12/22/19 08:01 Labs: Abnormal Lab Results - Last 24 Hours (Table) 12/22/19 12/22/19 12/22/19 Range/Units 08:01 08:01 12:14 Hgb 12.6 L (13.0-17.5) gm/dL Hct 38.8 L (39.0-53.0) % Sodium 136 L (137-145) mmol/L BUN 44 H (9-20) mg/dL Creatinine 4.81 H (0.66-1.25) mg/dL Glucose 508 H* (74-99) mg/dL POC Glucose (mg/dL) 360 H (75-99) mg/dL Alkaline Phosphatase 239 H (38-126) U/L Amylase 131 H (30-110) U/L Lipase 1320 H (23-300) U/L Thrombosis Risk Factor Assmnt - DVT/VTE Prophylaxis DVT/VTE Prophylaxis: Pharmacologic Prophylaxis ordered Assessment and Plan Assessment: Acute pancreatitis. No history of recent alcohol use or gallstones history. ESRD on hemodialysis TTS. Last hemodialysis yesterday. Diabetes type 2 insulin-dependent Fibromyalgia Hypertension History of pulmonary embolism Obstructive sleep apnea on CPAP Diabetic peripheral neuropathy Chronic lower back pain and shoulder pain No history of prior smoking DVT prophylaxis with heparin subcu Morbid obesity with BMI 40.2 Plan: Patient will be kept nothing by mouth and gentle hydration due to ESRD on hemodialysis. Continue pain management with morphine. Ultrasound ABDOMEN WAS ORDERED AND TRIGLYCERIDES LEVELS WAS ORDERED. Nephrology and GI was consulted. further recommendations based on the clinical course. Continue the home medications and insulin sliding scale. Time with Patient: Greater than 30
[2019-12-23 06:19] LABS: Glucose,Whole Blood 91 mg/dL (75-99)
[2019-12-23] MEDS: SEVELAMER 800 MG TAB PO SCH ×3 (06:29→17:48)
[2019-12-23] MEDS: INSULIN ASPART (NovoLOG) 100 UNIT/ML VIAL SQ SCH ×4 (06:29→20:36)
[2019-12-23 06:55] LABS: Basophils % (A) 0 %; Eosinophils # (A) 0.1 k/uL (0-0.7); Eosinophils % (A) 3 %; HCT 35.9 % (39.0-53.0); HGB 11.7 gm/dL (13.0-17.5); Lymphocytes # (A) 1.7 k/uL (1.0-4.8); Lymphocytes % (A) 34 %; MCH 29.2 pg (25.0-35.0); MCHC 32.6 g/dL (31.0-37.0); MCV 89.5 fL (80.0-100.0); Mean Platelet Volume 9.4; Monocytes # (A) 0.3 k/uL (0-1.0); Monocytes % (A) 5 %; Neutrophils # (A) 2.9 k/uL (1.3-7.7); Neutrophils % (A) 56 %; Platelet Count 173 k/uL (150-450); RBC 4.01 m/uL (4.30-5.90); RDW 12.7 % (11.5-15.5); WBC 5.1 k/uL (3.8-10.6)
[2019-12-23 07:29] LABS: Glucose,Whole Blood 93 mg/dL (75-99)
[2019-12-23 07:30] LABS: Albumin 3.4 g/dL (3.5-5.0); Calcium 8.8 mg/dL (8.4-10.2); Potassium 3.9 mmol/L (3.5-5.1); Total Bilirubin 0.9 mg/dL (0.2-1.3); Total Protein 6.4 g/dL (6.3-8.2)
[2019-12-23] MEDS: PANTOPRAZOLE 40 MG/10 ML VIAL IV SCH (08:20)
[2019-12-23] MEDS: INSULIN DETEMIR (LEVEMIR) 100 UNIT/ML SYR SQ SCH (08:20)
[2019-12-23] MEDS: [UNRECOGNIZED DRUG - OTHER] PO SCH (08:20)
--- NOTE | 2019-12-23 09:45 | P.PN ---
Subjective Progress Note Date: 12/23/19 Principal diagnosis: Acute uncomplicated pancreatitis Patient seen lying in bed. Overall reports abdominal pain is improved. He did however feel somewhat distended and bloated after liquids yesterday. Patient is passing gas. Objective - Vital Signs Vital signs: Vital Signs Temp 98.1 F 12/23/19 04:00 Pulse 83 12/23/19 04:00 Resp 18 12/23/19 04:00 BP 153/79 12/23/19 04:00 Pulse Ox 99 12/23/19 04:00 Intake & Output 12/22/19 12/23/19 12/23/19 18:59 06:59 18:59 Intake Total 75 Output Total 1200 Balance 75 -1200 Weight 138.346 kg 141.7 kg Intake: Intake, IV Titration 75 Amount Sodium Chloride 0.9% 1, 75 000 ml @ 75 mls/hr IV . [id number] STA Rx#:[id number] Output: Urine 1200 Other: Voiding Method Urinal # Voids 3 - Exam On physical examination, patient appears comfortable in no apparent distress. HEAD: Normocephalic, atraumatic. EYES: No scleral icterus. No conjunctival injection. MOUTH: No lesions, tongue midline. NECK: Trachea midline, no gross abnormalities. ABDOMEN: Soft, obese and mildly tender to palpation. Bowel sounds are positive. No organomegaly. No guarding or rigidity. EXTREMITIES: No pedal edema. SKIN: No rashes, no jaundice. NEUROLOGIC: Alert and oriented x3. No focal deficits. - Labs CBC & Chem 7: 12/23/19 06:10 12/23/19 06:10 Labs: Abnormal Lab Results - Last 24 Hours (Table) 12/22/19 12/22/19 12/22/19 Range/Units 08:01 12:14 17:46 RBC (4.30-5.90) m/uL Hgb (13.0-17.5) gm/dL Hct (39.0-53.0) % Sodium 136 L (137-145) mmol/L BUN 44 H (9-20) mg/dL Creatinine 4.81 H (0.66-1.25) mg/dL Glucose 508 H* (74-99) mg/dL POC Glucose (mg/dL) 360 H 315 H (75-99) mg/dL Alkaline Phosphatase 239 H (38-126) U/L Albumin (3.5-5.0) g/dL Amylase 131 H (30-110) U/L Lipase 1320 H (23-300) U/L 12/22/19 12/22/19 12/23/19 Range/Units 18:54 20:52 06:10 RBC (4.30-5.90) m/uL Hgb (13.0-17.5) gm/dL Hct (39.0-53.0) % Sodium (137-145) mmol/L BUN 42 H (9-20) mg/dL Creatinine 5.65 H (0.66-1.25) mg/dL Glucose 100 H (74-99) mg/dL POC Glucose (mg/dL) 231 H 227 H (75-99) mg/dL Alkaline Phosphatase (38-126) U/L Albumin 3.4 L (3.5-5.0) g/dL Amylase (30-110) U/L Lipase 462 H (23-300) U/L 12/23/19 Range/Units 06:10 RBC 4.01 L (4.30-5.90) m/uL Hgb 11.7 L (13.0-17.5) gm/dL Hct 35.9 L (39.0-53.0) % Sodium (137-145) mmol/L BUN (9-20) mg/dL Creatinine (0.66-1.25) mg/dL Glucose (74-99) mg/dL POC Glucose (mg/dL) (75-99) mg/dL Alkaline Phosphatase (38-126) U/L Albumin (3.5-5.0) g/dL Amylase (30-110) U/L Lipase (23-300) U/L Assessment and Plan (1) Pancreatitis Narrative/Plan: 49-year-old male with multiple medical comorbidities presenting to the hospital with chest and epigastric abdominal pain described as sharp and burning in sensation wrapping to his back found to have associated elevation in his lipase at 1320 currently admitted for treatment of acute uncomplicated pancreatitis. Ultrasound of the abdomen performed with no finding of gallbladder pathology. No elevation in liver enzymes suggests choledocholithiasis and CBD within normal limits on ultrasound of the abdomen. Denies any recent exposures. Denies any regular alcohol use. No prior episodes of pancreatitis. Current Visit: Yes Status: Acute Code(s): K85.90 - ACUTE PANCREATITIS WITHOUT NECROSIS OR INFECTION, UNSP SNOMED Code(s): 56224127 (2) Diarrhea Current Visit: Yes Status: Acute Code(s): R19.7 - DIARRHEA, UNSPECIFIED SNOMED Code(s): 65211935 Plan: Supportive care Gentle fluid hydration in the setting of end-stage renal disease Okay for clear liquid diet, advance as tolerated Ultrasound of the abdomen negative for any biliary pathology or cholelithiasis Triglyceride level normal Pain management Encourage ambulation No plans for endoscopic evaluation at this time If patient has persistent diarrhea further stool studies will be ordered Thank you for allowing us to participate in the care of the patient
[2019-12-23 11:51] LABS: Glucose,Whole Blood 115 mg/dL (75-99)
--- NOTE | 2019-12-23 12:10 | P.NPCON ---
History of Present Illness - Reason for Consult Consult date: 12/23/19 end stage renal disease - Chief Complaint Chest pain - History of Present Illness 49-year-old gentleman ESRD secondary to hypertension diabetes well left upper arm AV fistula at [facility], TTS schedule. He went to [employer] around 4:00 in the morning yesterday developed chest pain and presented to the hospital. He also had dizziness lightheadedness. Did not miss any dialysis treatment. Currently chest pain-free no nausea vomiting diarrhea. Review of Systems Constitutional: Reports as per HPI Past Medical History Past Medical History: Diabetes Mellitus, Eye Disorder, Fibromyalgia, Hyperte nsion, Pneumonia, Pulmonary Embolus (PE), Renal Disease, Sleep Apnea/CPAP/BIPAP Additional Past Medical History / Comment(s): IDDM type II, DKA, neuropathy bilateral feet, obesity, chronic renal failure stage IV secondary to DM, normocytic anemia, chronic lower back and shoulders pain, herniated lumbar disk, glaucoma R eye, carpal tunnel syndrome bilaterally, bronchitis, PAULA with CPAP, folliculitis chest, abscesses to back and R groin with I&Ds. Left drop foot History of Any Multi-Drug Resistant Organisms: MRSA Date of last positivie culture/infection: 11/21/12 MDRO Source:: lower back Past Surgical History: Orthopedic Surgery Additional Past Surgical History / Comment(s): Incision and drainage back and R groin r/t abcesses removed, bilateral eye surgery for retinal repair, R eye surgery for glaucoma-has a drain in place. Past Anesthesia/Blood Transfusion Reactions: Postoperative Nausea & Vomiting (PONV) Additional Past Anesthesia/Blood Transfusion Reaction / Comment(s): pt stated has recieved blood transfusions-no known reaction. Past Psychological History: No Psychological Hx Reported Smoking Status: Never smoker Past Alcohol Use History: None Reported Past Drug Use History: None Reported - Past Family History Father Family Medical History: Diabetes Mellitus, Hypertension Additional Family Medical History / Comment(s): Bladder cancer in father. Father at the age of 78 from bladder cancer complications. Mother Additional Family Medical History / Comment(s): Mother of brain aneurysm Medications and Allergies Home Medications Medication Instructions Recorded Confirmed Type Carvedilol [Coreg] 25 mg PO DIRECTED 03/02/18 12/22/19 History Sevelamer [Renvela] 3,200 mg PO AC-TID 03/02/18 12/22/19 History Furosemide [Lasix] 60 mg PO BID 11/13/18 12/22/19 History Losartan Potassium 50 mg PO HS 11/13/18 12/22/19 History Calcium Acetate [PhosLo] 667 mg PO DAILY 04/26/19 12/22/19 History Folic Acid-Vit B Complex-Vit C 1 mg PO DAILY 04/26/19 12/22/19 History [Nephrocaps] HYDROcodone/APAP 7.5-325MG [[place] 1 tab PO Q8H PRN 04/26/19 12/22/19 History 7.5-325] INSULIN LISPRO (humaLOG) [humaLOG] 10 units SQ AC-TID 12/22/19 12/22/19 History Insulin Detemir (Levemir) [Levemir] 60 unit SQ DAILY 12/22/19 12/22/19 History Lidocaine-Prilocaine Cream [Emla 1 applic TOPICAL DIRECTED PRN 12/22/19 12/22/19 History Cream 2.5%/2.5%] Midodrine [ProAmatine] 5 mg PO MOWEFR 12/22/19 12/22/19 History [place]-Lori 1 tab PO DAILY 12/22/19 12/22/19 History Allergies Allergy/AdvReac Type Severity Reaction Status Date / Time peanut Allergy Anaphylaxis Verified 12/22/19 09:42 Physical Exam Vitals: Vital Signs Temp Pulse Pulse Resp BP BP Pulse Ox 12/23/19 08:05 98.0 F 80 18 149/72 97 12/23/19 04:00 98.1 F 83 18 153/79 99 12/23/19 00:00 97.9 F 74 18 160/85 99 12/22/19 20:15 98.0 F 74 18 127/75 100 12/22/19 18:51 77 17 152/71 97 12/22/19 17:30 22 L 16 130/71 96 12/22/19 17:00 21 L 13 123/83 96 12/22/19 16:00 25 L 12 153/84 97 12/22/19 14:30 16 129/78 93 L 12/22/19 14:00 16 109/63 93 L 12/22/19 13:30 16 121/77 97 Intake and Output 12/22/19 12/23/19 12/23/19 22:59 06:59 14:59 Intake Total 75 1680 Output Total 400 800 250 Balance -325 -800 1430 Intake: Intake, IV Titration 75 600 Amount Sodium Chloride 0.9% 1, 75 600 000 ml @ 75 mls/hr IV . [id number] STA Rx#:[id number] Oral 1080 Output: Urine 400 800 250 Other: Voiding Method Urinal Urinal Urinal # Voids 3 Weight 138.346 kg 141.7 kg No acute distress S1-S2 heard Lungs clear No edema Left upper arm aVF. Results - Lab Results Most recent lab results Calcium 8.8 mg/dL (8.4-10.2) 12/23/19 06:10 Magnesium 2.0 mg/dL (1.6-2.3) 12/22/19 08:01 12/23/19 06:10 12/23/19 06:10 Assessment and Plan Assessment: #1 chest pain cardiac enzymes negative currently chest pain-free. #2 ESRD on hemodialysis, TTS. Last dialysis on . #3 hypertension with ESRD #4 complicated diabetes #5 metabolic bone disease with ESRD #6 anemia with ESRD Plan: #1 he doesn't want to do dialysis today. Will plan dialysis on Wednesday and follow up labs tomorrow. #2 ESRD medications #3 rule out ACS as per cardiology #4 supportive care
--- NOTE | 2019-12-23 15:36 | P.CRDCN ---
History of Present Illness History of present illness: This is Madelaine Hsieh PA-C dictating a consult on this patient The patient was interviewed and examined by me as well as by Dr. Leo Case discussed with Dr. Leo and he agrees with the plan of care HPI Patient is a 49-year-old male with a past medical history significant for h ypertension, diabetes, and ESRD who presented with complaints of chest and abdominal pain. He states he experiences son onset of chest pain in the lower left side of his chest and upper left quadrant abdominal pain that radiated around back. He describes it as feeling like someone punched him. He had associated nausea and diarrhea. No vomiting. No shortness of breath. EKG shows sinus mechanism with ST changes anteriorly which were present on prior EKGs. Troponins are negative 3. His lipase was found to be elevated and he was diagnosed and is being treated for pancreatitis. Patient seen and examined resting in bed. States he feels much better. Denies any chest pain or shortness of breath. Denies drug or alcohol use Nonsmoker ROS: No fevers, chills or rigors, no cough, phlegm or expectoration, Positive for nausea and diarrhea no hematuria, dysuria, no musculoskeletal complaints, no strokes or seizures, no skin lesions. EXAMINATION: Patient is afebrile, pulse in the 70s, respirations 18, blood pressure in the 140s over 70s, oxygen saturation 96% on room air Patient seen and examined resting in bed , In no acute distress Heart is regular, normal S1-S2, no murmurs noted lungs clear to auscultation bilaterally No lower extremity edema REVIEW OF LABS, ECG & MEDICAL DATA WBC 5.1, hemoglobin 11.7, platelets 173, potassium 3.9, BUN 42, creatinine 4.51 LDL 42 IMPRESSION / ASSESSMENT: Symptoms of chest and abdominal pain radiating to the back, likely secondary to acute pancreatitis, troponins negative, no new changes on EKG Diabetes Hypertension ESRD on dialysis PLAN: No further cardiac workup is indicated at this time, we will sign off now and see the patient on an as-needed basis only Outpatient follow-up with cardiology for further workup Past Medical History Past Medical History: Diabetes Mellitus, Eye Disorder, Fibromyalgia, Hypertension, Pneumonia, Pulmonary Embolus (PE), Renal Disease, Sleep Apnea/CPAP/BIPAP Additional Past Medical History / Comment(s): IDDM type II, DKA, neuropathy bilateral feet, obesity, chronic renal failure stage IV secondary to DM, normocytic anemia, chronic lower back and shoulders pain, herniated lumbar disk, glaucoma R eye, carpal tunnel syndrome bilaterally, bronchitis, PAULA with CPAP, folliculitis chest, abscesses to back and R groin with I&Ds. Left drop foot History of Any Multi-Drug Resistant Organisms: MRSA Date of last positivie culture/infection: 11/21/12 MDRO Source:: lower back Past Surgical History: Orthopedic Surgery Additional Past Surgical History / Comment(s): Incision and drainage back and R groin r/t abcesses removed, bilateral eye surgery for retinal repair, R eye surgery for glaucoma-has a drain in place. Past Anesthesia/Blood Transfusion Reactions: Postoperative Nausea & Vomiting (PONV) Additional Past Anesthesia/Blood Transfusion Reaction / Comment(s): pt stated has recieved blood transfusions-no known reaction. Past Psychological History: No Psychological Hx Reported Smoking Status: Never smoker Past Alcohol Use History: None Reported Past Drug Use History: None Reported - Past Family History Father Family Medical History: Diabetes Mellitus, Hypertension Additional Family Medical History / Comment(s): Bladder cancer in father. Father at the age of 78 from bladder cancer complications. Mother Additional Family Medical History / Comment(s): Mother of brain aneurysm Medications and Allergies Home Medications Medication Instructions Recorded Confirmed Type Carvedilol [Coreg] 25 mg PO DIRECTED 03/02/18 12/22/19 History Sevelamer [Renvela] 3,200 mg PO AC-TID 03/02/18 12/22/19 History Furosemide [Lasix] 60 mg PO BID 11/13/18 12/22/19 History Losartan Potassium 50 mg PO HS 11/13/18 12/22/19 History Calcium Acetate [PhosLo] 667 mg PO DAILY 04/26/19 12/22/19 History Folic Acid-Vit B Complex-Vit C 1 mg PO DAILY 04/26/19 12/22/19 History [Nephrocaps] HYDROcodone/APAP 7.5-325MG [[place] 1 tab PO Q8H PRN 04/26/19 12/22/19 History 7.5-325] INSULIN LISPRO (humaLOG) [humaLOG] 10 units SQ AC-TID 12/22/19 12/22/19 History Insulin Detemir (Levemir) [Levemir] 60 unit SQ DAILY 12/22/19 12/22/19 History Lidocaine-Prilocaine Cream [Emla 1 applic TOPICAL DIRECTED PRN 12/22/19 12/22/19 History Cream 2.5%/2.5%] Midodrine [ProAmatine] 5 mg PO MOWEFR 12/22/19 12/22/19 History [place]-Lori 1 tab PO DAILY 12/22/19 12/22/19 History Allergies Allergy/AdvReac Type Severity Reaction Status Date / Time peanut Allergy Anaphylaxis Verified 12/22/19 09:42 Physical Exam Vitals: Vital Signs Temp Pulse Pulse Resp BP BP Pulse Ox 12/23/19 11:10 98.3 F 79 18 142/77 96 12/23/19 08:05 98.0 F 80 18 149/72 97 12/23/19 04:00 98.1 F 83 18 153/79 99 12/23/19 00:00 97.9 F 74 18 160/85 99 12/22/19 20:15 98.0 F 74 18 127/75 100 12/22/19 18:51 77 17 152/71 97 12/22/19 17:30 22 L 16 130/71 96 12/22/19 17:00 21 L 13 123/83 96 12/22/19 16:00 25 L 12 153/84 97 Intake and Output 12/23/19 12/23/19 12/23/19 06:59 14:59 22:59 Intake Total 2040 Output Total 800 250 Balance -800 1790 Intake: Intake, IV Titration 600 Amount Sodium Chloride 0.9% 1, 600 000 ml @ 75 mls/hr IV . [id number] STA Rx#:[id number] Oral 1440 Output: Urine 800 250 Other: Voiding Method Urinal Urinal # Voids 3 Weight 141.7 kg Results 12/23/19 06:10 12/23/19 06:10 Cardiac Enzymes 12/22/19 12/23/19 Range/Units 20:14 06:10 AST 18 (17-59) U/L Troponin I 0.018 (0.000-0.034) ng/mL Lipids 12/23/19 Range/Units 06:10 Triglycerides 103 (<150) mg/dL Cholesterol 116 (<200) mg/dL HDL Cholesterol 53 (40-60) mg/dL CBC 12/23/19 Range/Units 06:10 WBC 5.1 (3.8-10.6) k/uL RBC 4.01 L (4.30-5.90) m/uL Hgb 11.7 L (13.0-17.5) gm/dL Hct 35.9 L (39.0-53.0) % Plt Count 173 (150-450) k/uL Comprehensive Metabolic Panel 12/23/19 Range/Units 06:10 Sodium 141 (137-145) mmol/L Potassium 3.9 (3.5-5.1) mmol/L Chloride 105 (98-107) mmol/L Carbon Dioxide 27 (22-30) mmol/L BUN 42 H (9-20) mg/dL Creatinine 5.65 H (0.66-1.25) mg/dL Glucose 100 H (74-99) mg/dL Calcium 8.8 (8.4-10.2) mg/dL AST 18 (17-59) U/L ALT 13 (4-49) U/L Alkaline Phosphatase 92 (38-126) U/L Total Protein 6.4 (6.3-8.2) g/dL Albumin 3.4 L (3.5-5.0) g/dL Current Medications Generic Name Dose Route Start Last Admin Trade Name Freq PRN Reason Stop Dose Admin Acetaminophen 650 mg 12/22/19 09:59 Tylenol Tab PO Q6HR PRN Mild Pain or Fever > 100.5 Hydromorphone HCl 0.5 mg 12/22/19 09:59 Dilaudid IVP Q3HR PRN Moderate Pain Insulin Aspart 10 unit 12/22/19 17:30 12/23/19 12:16 Novolog SQ Not Given AC-TID LORI Insulin Detemir 60 unit 12/22/19 13:30 12/23/19 08:20 Levemir SQ 60 unit DAILY LORI Administration Midodrine 5 mg 12/25/19 09:00 Proamatine PO MOWEFR LORI Morphine Sulfate 4 mg 12/22/19 09:59 Morphine Sulfate (Inj) IV Q4HR PRN Severe Pain Naloxone HCl 0.2 mg 12/22/19 09:59 Narcan IV Q2M PRN Opioid Reversal Nitroglycerin 0.4 mg 12/22/19 10:02 Nitrostat SUBLINGUAL Q5M PRN Chest Pain Non-Formulary Medication 1 tab 12/23/19 09:00 12/23/19 08:20 [place]-Lori PO Not Given DAILY LORI Ondansetron HCl 4 mg 12/22/19 09:59 Zofran IVP Q8HR PRN Nausea And Vomiting Pantoprazole Sodium 40 mg 12/23/19 09:00 12/23/19 08:20 Protonix IV 40 mg DAILY LORI Administration Sevelamer Carbonate 3,200 mg 12/22/19 17:30 12/23/19 12:48 Renvela PO 3,200 mg AC-TID LORI Administration Intake and Output 12/23/19 12/23/19 12/23/19 06:59 14:59 22:59 Intake Total 2040 Output Total 800 250 Balance -800 1790 Intake: Intake, IV Titration 600 Amount Sodium Chloride 0.9% 1, 600 000 ml @ 75 mls/hr IV . [id number] STA Rx#:[id number] Oral 1440 Output: Urine 800 250 Other: Voiding Method Urinal Urinal # Voids 3 Weight 141.7 kg 12/23/19 06:10 12/23/19 06:10
[2019-12-23 16:46] LABS: Glucose,Whole Blood 95 mg/dL (75-99)
[2019-12-23 20:32] LABS: Glucose,Whole Blood 266 mg/dL (75-99)
--- NOTE | 2019-12-23 23:08 | P.PN ---
Subjective Progress Note Date: 12/23/19 Principal diagnosis: Acute pancreatitis ESRD on hemodialysis Patient is a 49-year-old male with a known history of ESRD on hemodialysis TTS, diabetes type 2 insulin-dependent, hypertension, fibromyalgia, history of PE, obstructive sleep apnea, diabetic peripheral neuropathy and other multiple medical problems came to ER with complaints of chest pain and epigastric abdominal pain and also pain below the left breast margin. Patient started around 4:30 AM. Associated with nausea. Patient did have some radiation of the pain is related to the back. Patient did have diarrhea and headache as well. Denied any fever or chills. No commerce of radiation of the pain. Denied any history of prior pancreatitis. Lipase level elevated to 1328, amylase 131, WBC 5.6, hemoglobin 0.6 and platelets 152, bilirubin 1.2 alk phos 238 AST 30 and ALT 16 Chest x-ray showed no acute cardiopulmonary process EKG showed normal sinus rhythm. Ultrasound of ABDOMEN WAS ORDERED. 12/23/2019 Patient is currently lying in the bed comfortably. Abdominal pain is much improved. Patient was started on liquid diet and will be advanced as tolerated. Gastroenterology is following. Ultrasound ABDOMEN SHOWED NO GALLSTONES. Lipase level is trending down. Otherwise patient refused hemodialysis today. No chest pain or shortness breath. Nephrology is following. Current medications reviewed. Objective - Vital Signs Vital signs: Vital Signs Temp 98.3 F 12/23/19 11:10 Pulse 79 12/23/19 11:10 Resp 18 12/23/19 11:10 BP 142/77 12/23/19 11:10 Pulse Ox 96 12/23/19 11:10 Intake & Output 12/22/19 12/23/19 12/23/19 18:59 06:59 18:59 Intake Total 75 2040 Output Total 1200 250 Balance 75 -1200 1790 Weight 138.346 kg 141.7 kg Intake: Intake, IV Titration 75 600 Amount Sodium Chloride 0.9% 1, 75 600 000 ml @ 75 mls/hr IV . [id number] STA Rx#:[id number] Oral 1440 Output: Urine 1200 250 Other: Voiding Method Urinal Urinal # Voids 3 - Exam PHYSICAL EXAMINATION: Patient is lying in the bed comfortably, no acute distress, awake alert and oriented.. HEENT: Normocephalic. Neck is supple. Pupils reactive. Nostrils clear. Oral cavity is moist. Ears reveal no drainage. Neck reveals no JVD, carotid bruits, or thyromegaly. CHEST EXAMINATION: Trachea is central. Symmetrical expansion. Lung bryant clear to auscultation and percussion. CARDIAC: Normal S1, S2 with no gallops. No murmurs ABDOMEN: Soft. Bowel sounds normal. No organomegaly. No abdominal bruits. Extremities: reveal no edema. No clubbing or cyanosis Neurologically awake, alert, oriented x3 with well-coordinated movements. No focal deficits noted Skin: No rash or skin lesions. Psychiatric: Coperative. Nonsuicidal Musculoskeletal: No joint swelling or deformity. Normal range of motion. - Labs CBC & Chem 7: 12/23/19 06:10 12/23/19 06:10 Labs: Abnormal Lab Results - Last 24 Hours (Table) 12/22/19 12/22/19 12/22/19 Range/Units 17:46 18:54 20:52 RBC (4.30-5.90) m/uL Hgb (13.0-17.5) gm/dL Hct (39.0-53.0) % BUN (9-20) mg/dL Creatinine (0.66-1.25) mg/dL Glucose (74-99) mg/dL POC Glucose (mg/dL) 315 H 231 H 227 H (75-99) mg/dL Albumin (3.5-5.0) g/dL Lipase (23-300) U/L 12/23/19 12/23/19 12/23/19 Range/Units 06:10 06:10 11:49 RBC 4.01 L (4.30-5.90) m/uL Hgb 11.7 L (13.0-17.5) gm/dL Hct 35.9 L (39.0-53.0) % BUN 42 H (9-20) mg/dL Creatinine 5.65 H (0.66-1.25) mg/dL Glucose 100 H (74-99) mg/dL POC Glucose (mg/dL) 115 H (75-99) mg/dL Albumin 3.4 L (3.5-5.0) g/dL Lipase 462 H (23-300) U/L Assessment and Plan Assessment: Acute pancreatitis. No history of recent alcohol use or gallstones history. TG not elevated. Ultrasound abdomen showed no evidence of gallstones. Hepatic steatosis ESRD on hemodialysis TTS. Last hemodialysis .. Diabetes type 2 insulin-dependent Fibromyalgia Hypertension History of pulmonary embolism Obstructive sleep apnea on CPAP Diabetic peripheral neuropathy Chronic lower back pain and shoulder pain No history of prior smoking DVT prophylaxis with heparin subcu Morbid obesity with BMI 40.2 Plan: Patient was kept nothing by mouth and gentle hydration due to ESRD on hemodialysis. Started on liquid diet and advance as tolerated. Continue pain management with morphine. Ultrasound ABDOMEN WAS ORDERED AND TRIGLYCERIDES LEVELS WAS ORDERED. Nephrology and GI is following. Patient did improve symptomatically. further recommendations based on the clinical course. Continue the home medications and insulin sliding scale. Time with Patient: Greater than 30
[2019-12-24 06:30] LABS: Glucose,Whole Blood 287 mg/dL (75-99)
[2019-12-24 06:39] LABS: Basophils % (A) 0 %; Eosinophils # (A) 0.1 k/uL (0-0.7); Eosinophils % (A) 2 %; HCT 34.5 % (39.0-53.0); Lymphocytes # (A) 1.4 k/uL (1.0-4.8); Lymphocytes % (A) 28 %; MCH 28.8 pg (25.0-35.0); MCHC 31.9 g/dL (31.0-37.0); MCV 90.5 fL (80.0-100.0); Mean Platelet Volume 9.3; Monocytes # (A) 0.2 k/uL (0-1.0); Monocytes % (A) 4 %; Neutrophils # (A) 3.3 k/uL (1.3-7.7); Neutrophils % (A) 64 %; Platelet Count 127 k/uL (150-450); RBC 3.81 m/uL (4.30-5.90); RDW 12.9 % (11.5-15.5); WBC 5.2 k/uL (3.8-10.6)
[2019-12-24] MEDS: INSULIN ASPART (NovoLOG) 100 UNIT/ML VIAL SQ SCH ×3 (06:58→17:36)
[2019-12-24] MEDS: SEVELAMER 800 MG TAB PO SCH ×3 (06:58→17:39)
[2019-12-24 07:02] LABS: Calcium 8.4 mg/dL (8.4-10.2); Potassium 4.4 mmol/L (3.5-5.1)
[2019-12-24] MEDS: [UNRECOGNIZED DRUG - OTHER] PO SCH (08:06)
[2019-12-24] MEDS: INSULIN DETEMIR (LEVEMIR) 100 UNIT/ML SYR SQ SCH (08:12)
[2019-12-24] MEDS: PANTOPRAZOLE 40 MG/10 ML VIAL IV SCH (08:12)
[2019-12-24] MEDS: HEPARIN SODIUM,PORCINE 5,000 UNIT/ML 1 ML VIAL SQ SCH ×2 (11:15→21:13)
--- NOTE | 2019-12-24 11:50 | P.PN ---
Subjective Progress Note Date: 12/24/19 Follow-up for ESRD. Objective - Vital Signs Vital signs: Vital Signs Temp 98.3 F 12/24/19 08:05 Pulse 96 12/24/19 08:05 Resp 18 12/24/19 08:05 BP 155/72 12/24/19 08:05 Pulse Ox 94 L 12/24/19 08:05 Intake & Output 12/23/19 12/24/19 12/24/19 18:59 06:59 18:59 Intake Total 2400 240 Output Total 550 1600 Balance 1850 -1600 240 Weight 144.5 kg Intake: Intake, IV Titration 600 Amount Sodium Chloride 0.9% 1, 600 000 ml @ 75 mls/hr IV . [id number] STA Rx#:[id number] Oral 1800 240 Output: Urine 550 1600 Other: Voiding Method Urinal Urinal Urinal # Voids 1 4 - Exam No acute distress S1-S2 heard Lungs clear Abdomen soft Trace edema - Labs CBC & Chem 7: 12/24/19 06:01 12/24/19 06:01 Labs: Abnormal Lab Results - Last 24 Hours (Table) 12/23/19 12/23/19 12/24/19 Range/Units 11:49 20:29 06:01 RBC (4.30-5.90) m/uL Hgb (13.0-17.5) gm/dL Hct (39.0-53.0) % Plt Count (150-450) k/uL BUN 46 H (9-20) mg/dL Creatinine 6.06 H (0.66-1.25) mg/dL Glucose 259 H (74-99) mg/dL POC Glucose (mg/dL) 115 H 266 H (75-99) mg/dL 12/24/19 12/24/19 Range/Units 06:01 06:27 RBC 3.81 L (4.30-5.90) m/uL Hgb 11.0 L (13.0-17.5) gm/dL Hct 34.5 L (39.0-53.0) % Plt Count 127 L (150-450) k/uL BUN (9-20) mg/dL Creatinine (0.66-1.25) mg/dL Glucose (74-99) mg/dL POC Glucose (mg/dL) 287 H (75-99) mg/dL Assessment and Plan Assessment: #1 chest pain cardiac enzymes negative currently chest pain-free. #2 ESRD on hemodialysis, TTS. Last dialysis on . #3 hypertension with ESRD #4 complicated diabetes #5 metabolic bone disease with ESRD #6 anemia with ESRD Plan: #1 dialysis on Wednesday #2 ESRD medications #3 rule out ACS as per cardiology #4 supportive care
[2019-12-24 12:16] LABS: Glucose,Whole Blood 175 mg/dL (75-99)
--- NOTE | 2019-12-24 13:00 | US ---
EXAMINATION TYPE: US venous doppler duplex LE DATE OF EXAM: 12/24/2019 12:40 PM COMPARISON: Previous study dated 04/28/2015. CLINICAL HISTORY: Pain in right calf. right calf pain SIDE PERFORMED: Bilateral TECHNIQUE: The lower extremity deep venous system is examined utilizing real time linear array sonog bouchra with graded compression, doppler sonography and color-flow sonography. VESSELS IMAGED: External Iliac Vein (EIV) Common Femoral Vein Deep Femoral Vein Greater Saphenous Vein * Femoral Vein Popliteal Vein Small Saphenous Vein * Proximal Calf Veins (* superficial vessels) large habitus made imaging difficult Right Leg: Appears negative for DVT Left Leg: Appears negative for DVT, unable to obtain compression images of left groin due to habitus No popliteal lesion was seen. IMPRESSION: THIS EXAMINATION IS NEGATIVE FOR DVT IN BOTH LEGS.
--- NOTE | 2019-12-24 15:45 | P.PN ---
Subjective Progress Note Date: 12/24/19 Principal diagnosis: Acute uncomplicated pancreatitis Patient seen lying in bed, abdominal pain is improved. He is tolerating his diet. No nausea or vomiting. Objective - Vital Signs Vital signs: Vital Signs Temp 98.3 F 12/24/19 08:05 Pulse 96 12/24/19 08:05 Resp 18 12/24/19 08:05 BP 155/72 12/24/19 08:05 Pulse Ox 94 L 12/24/19 08:05 Intake & Output 12/23/19 12/24/19 12/24/19 18:59 06:59 18:59 Intake Total 2400 Output Total 550 1600 Balance 1850 -1600 Weight 144.5 kg Intake: Intake, IV Titration 600 Amount Sodium Chloride 0.9% 1, 600 000 ml @ 75 mls/hr IV . [id number] STA Rx#:[id number] Oral 1800 Output: Urine 550 1600 Other: Voiding Method Urinal Urinal Urinal # Voids 1 4 - Exam On physical examination, patient appears comfortable in no apparent distress. HEAD: Normocephalic, atraumatic. EYES: No scleral icterus. No conjunctival injection. MOUTH: No lesions, tongue midline. NECK: Trachea midline, no gross abnormalities. ABDOMEN: Soft, obese and mildly tender to palpation. Bowel sounds are positive. No organomegaly. No guarding or rigidity. EXTREMITIES: No pedal edema. SKIN: No rashes, no jaundice. NEUROLOGIC: Alert and oriented x3. No focal deficits. - Labs CBC & Chem 7: 12/24/19 06:01 12/24/19 06:01 Labs: Abnormal Lab Results - Last 24 Hours (Table) 12/23/19 12/23/19 12/24/19 Range/Units 11:49 20:29 06:01 RBC (4.30-5.90) m/uL Hgb (13.0-17.5) gm/dL Hct (39.0-53.0) % Plt Count (150-450) k/uL BUN 46 H (9-20) mg/dL Creatinine 6.06 H (0.66-1.25) mg/dL Glucose 259 H (74-99) mg/dL POC Glucose (mg/dL) 115 H 266 H (75-99) mg/dL 12/24/19 12/24/19 Range/Units 06:01 06:27 RBC 3.81 L (4.30-5.90) m/uL Hgb 11.0 L (13.0-17.5) gm/dL Hct 34.5 L (39.0-53.0) % Plt Count 127 L (150-450) k/uL BUN (9-20) mg/dL Creatinine (0.66-1.25) mg/dL Glucose (74-99) mg/dL POC Glucose (mg/dL) 287 H (75-99) mg/dL Assessment and Plan (1) Pancreatitis Narrative/Plan: 49-year-old male with multiple medical comorbidities presenting to the hospital with chest and epigastric abdominal pain described as sharp and burning in sensation wrapping to his back found to have associated elevation in his lipase at 1320 currently admitted for treatment of acute uncomplicated pancreatitis. Ultrasound of the abdomen performed with no finding of gallbladder pathology. No elevation in liver enzymes suggests choledocholithiasis and CBD within normal limits on ultrasound of the abdomen. Denies any recent exposures. Denies any regular alcohol use. No prior episodes of pancreatitis. Current Visit: Yes Status: Acute Code(s): K85.90 - ACUTE PANCREATITIS WITHOUT NECROSIS OR INFECTION, UNSP SNOMED Code(s): 10010678 (2) Diarrhea Current Visit: Yes Status: Acute Code(s): R19.7 - DIARRHEA, UNSPECIFIED SNOMED Code(s): 75487595 Plan: Supportive care Okay for diet as tolerated Ultrasound of the abdomen negative for any biliary pathology or cholelithiasis Triglyceride level normal Pain management Encourage ambulation No plans for endoscopic evaluation at this time Thank you for allowing us to participate in the care of the patient, the GI service will stand by, please call us back with any questions or concerns
[2019-12-24 16:59] LABS: Glucose,Whole Blood 75 mg/dL (75-99)
[2019-12-24 20:00] LABS: Glucose,Whole Blood 203 mg/dL (75-99)
--- NOTE | 2019-12-24 23:22 | P.PN ---
Subjective Progress Note Date: 12/24/19 Principal diagnosis: Acute pancreatitis ESRD on hemodialysis Patient is a 49-year-old male with a known history of ESRD on hemodialysis TTS, diabetes type 2 insulin-dependent, hypertension, fibromyalgia, history of PE, obstructive sleep apnea, diabetic peripheral neuropathy and other multiple medical problems came to ER with complaints of chest pain and epigastric abdominal pain and also pain below the left breast margin. Patient started around 4:30 AM. Associated with nausea. Patient did have some radiation of the pain is related to the back. Patient did have diarrhea and headache as well. Denied any fever or chills. No commerce of radiation of the pain. Denied any history of prior pancreatitis. Lipase level elevated to 1328, amylase 131, WBC 5.6, hemoglobin 0.6 and platelets 152, bilirubin 1.2 alk phos 238 AST 30 and ALT 16 Chest x-ray showed no acute cardiopulmonary process EKG showed normal sinus rhythm. Ultrasound of ABDOMEN WAS ORDERED. 12/23/2019 Patient is currently lying in the bed comfortably. Abdominal pain is much improved. Patient was started on liquid diet and will be advanced as tolerated. Gastroenterology is following. Ultrasound ABDOMEN SHOWED NO GALLSTONES. Lipase level is trending down. Otherwise patient refused hemodialysis today. No chest pain or shortness breath. Nephrology is following. 12/24/2019 Patient is lying in the bed comfortably. Awaiting soft diet and is being advanced. Abdominal pain is much improved. Patient did complain of leg pain today. Does have history of PE several years ago. Ordered Ultrasound duplex scan is negative for DVT. Planning for hemodialysis tomorrow. Possible discharge in the next 24 hours Current medications reviewed. Objective - Vital Signs Vital signs: Vital Signs Temp 98.0 F 12/24/19 11:10 Pulse 85 12/24/19 11:10 Resp 18 12/24/19 11:10 BP 146/94 12/24/19 11:10 Pulse Ox 97 12/24/19 11:10 Intake & Output 12/23/19 12/24/19 12/24/19 18:59 06:59 18:59 Intake Total 2400 600 Output Total 550 1600 250 Balance 1850 -1600 350 Weight 144.5 kg Intake: Intake, IV Titration 600 Amount Sodium Chloride 0.9% 1, 600 000 ml @ 75 mls/hr IV . [id number] STA Rx#:[id number] Oral 1800 600 Output: Urine 550 1600 250 Other: Voiding Method Urinal Urinal Urinal # Voids 1 4 1 - Exam PHYSICAL EXAMINATION: Patient is lying in the bed comfortably, no acute distress, awake alert and o riented.. HEENT: Normocephalic. Neck is supple. Pupils reactive. Nostrils clear. Oral cavity is moist. Ears reveal no drainage. Neck reveals no JVD, carotid bruits, or thyromegaly. CHEST EXAMINATION: Trachea is central. Symmetrical expansion. Lung bryant clear to auscultation and percussion. CARDIAC: Normal S1, S2 with no gallops. No murmurs ABDOMEN: Soft. Bowel sounds normal. No organomegaly. No abdominal bruits. Extremities: reveal no edema. No clubbing or cyanosis Neurologically awake, alert, oriented x3 with well-coordinated movements. No focal deficits noted Skin: No rash or skin lesions. Psychiatric: Coperative. Nonsuicidal Musculoskeletal: No joint swelling or deformity. Normal range of motion. - Labs CBC & Chem 7: 12/24/19 06:01 12/24/19 06:01 Labs: Abnormal Lab Results - Last 24 Hours (Table) 12/23/19 12/24/19 12/24/19 Range/Units 20:29 06:01 06:01 RBC 3.81 L (4.30-5.90) m/uL Hgb 11.0 L (13.0-17.5) gm/dL Hct 34.5 L (39.0-53.0) % Plt Count 127 L (150-450) k/uL BUN 46 H (9-20) mg/dL Creatinine 6.06 H (0.66-1.25) mg/dL Glucose 259 H (74-99) mg/dL POC Glucose (mg/dL) 266 H (75-99) mg/dL 12/24/19 12/24/19 Range/Units 06:27 12:03 RBC (4.30-5.90) m/uL Hgb (13.0-17.5) gm/dL Hct (39.0-53.0) % Plt Count (150-450) k/uL BUN (9-20) mg/dL Creatinine (0.66-1.25) mg/dL Glucose (74-99) mg/dL POC Glucose (mg/dL) 287 H 175 H (75-99) mg/dL Assessment and Plan Assessment: Acute pancreatitis. No history of recent alcohol use or gallstones history. TG not elevated. Ultrasound abdomen showed no evidence of gallstones. Hepatic steatosis ESRD on hemodialysis TTS. Last hemodialysis .. Diabetes type 2 insulin-dependent Fibromyalgia Hypertension History of pulmonary embolism Obstructive sleep apnea on CPAP Diabetic peripheral neuropathy Chronic lower back pain and shoulder pain No history of prior smoking DVT prophylaxis with heparin subcu Morbid obesity with BMI 40.2 Plan: Patient was kept nothing by mouth and gentle hydration due to ESRD on hemodialysis. Started on liquid diet and advance as tolerated. Continue pain m anagement with morphine. Ultrasound ABDOMEN WAS ORDERED AND TRIGLYCERIDES LEVELS WAS ORDERED. Nephrology and GI is following. Patient did improve symptomatically. further recommendations based on the clinical course. Continue the home medications and insulin sliding scale. Time with Patient: Greater than 30
[2019-12-25 01:00] VITALS: RESP 18
[2019-12-25] MEDS ORDERED: HYDROcodone/APAP 7.5-325MG 1 EACH TAB PO PRN (02:37)
[2019-12-25 06:27] LABS: Glucose,Whole Blood 358 mg/dL (75-99)
[2019-12-25] MEDS: SEVELAMER 800 MG TAB PO SCH ×2 (06:40→12:55)
[2019-12-25] MEDS: INSULIN ASPART (NovoLOG) 100 UNIT/ML VIAL SQ SCH ×2 (06:40→12:55)
[2019-12-25 07:11] LABS: Basophils # (A) 0.1 k/uL (0-0.2); Basophils % (A) 2 %; Eosinophils # (A) 0.1 k/uL (0-0.7); Eosinophils % (A) 2 %; HCT 35.8 % (39.0-53.0); HGB 11.4 gm/dL (13.0-17.5); Lymphocytes # (A) 1.5 k/uL (1.0-4.8); Lymphocytes % (A) 26 %; MCH 28.9 pg (25.0-35.0); MCHC 31.8 g/dL (31.0-37.0); Mean Platelet Volume 8.9; Monocytes # (A) 0.3 k/uL (0-1.0); Monocytes % (A) 4 %; Neutrophils # (A) 3.8 k/uL (1.3-7.7); Neutrophils % (A) 65 %; Platelet Count 162 k/uL (150-450); RBC 3.93 m/uL (4.30-5.90); RDW 12.8 % (11.5-15.5); WBC 5.9 k/uL (3.8-10.6)
[2019-12-25 07:30] LABS: Calcium 8.6 mg/dL (8.4-10.2); Potassium 4.9 mmol/L (3.5-5.1)
[2019-12-25] MEDS: PANTOPRAZOLE 40 MG/10 ML VIAL IV SCH (08:05)
[2019-12-25] MEDS: INSULIN DETEMIR (LEVEMIR) 100 UNIT/ML SYR SQ SCH (08:05)
[2019-12-25] MEDS: HEPARIN SODIUM,PORCINE 5,000 UNIT/ML 1 ML VIAL SQ SCH (08:05)
[2019-12-25] MEDS: [UNRECOGNIZED DRUG - OTHER] PO SCH (08:06)
[2019-12-25] MEDS ORDERED: MIDODRINE 5 MG TAB PO SCH (09:00)
[2019-12-25 12:03] LABS: Glucose,Whole Blood 180 mg/dL (75-99)
--- NOTE | 2019-12-25 13:37 | P.DS ---
Providers Date of admission: 12/22/19 09:50 Attending physician: Mirza Yancey MD Consults: 12/22/19 09:59 Consult Physician Stat Consulting Provider: Elke Quijano Consult Reason/Comments: Chest pain Do you want consulting provider notified?: Yes 12/22/19 13:27 Consult Physician Routine Consulting Provider: Lewis Werner Consult Reason/Comments: ESRD on HD Do you want consulting provider notified?: Yes Primary care physician: George Sin [facility] Course: 49-year-old male with a known history of ESRD on hemodialysis TTS, diabetes type 2 insulin-dependent, hypertension, fibromyalgia, history of PE, obstructive sleep apnea, diabetic peripheral neuropathy and other multiple medical problems came to ER with complaints of chest pain and epigastric abdominal pain and also pain below the left breast margin. Patient started around 4:30 AM. Associated with nausea. Patient did have some radiation of the pain is related to the back. Patient did have diarrhea and headache as well. Denied any fever or chills. No commerce of radiation of the pain. Denied any history of prior pancreatitis. Lipase level elevated to 1328, amylase 131, WBC 5.6, hemoglobin 0.6 and platelets 152, bilirubin 1.2 alk phos 238 AST 30 and ALT 16 Chest x-ray showed no acute cardiopulmonary process EKG showed normal sinus rhythm. Ultrasound of ABDOMEN WAS ORDERED. 12/23/2019 Patient is currently lying in the bed comfortably. Abdominal pain is much improved. Patient was started on liquid diet and will be advanced as tolerated. Gastroenterology is following. Ultrasound ABDOMEN SHOWED NO GALLSTONES. Lipase level is trending down. Otherwise patient refused hemodialysis today. No chest pain or shortness breath. Nephrology is following. 12/24/2019 Patient is lying in the bed comfortably. Awaiting soft diet and is being advanced. Abdominal pain is much improved. Patient did complain of leg pain today. Does have history of PE several years ago. Ordered Ultrasound duplex scan is negative for DVT. Planning for hemodialysis tomorrow. Possible discharge in the next 24 hours 12/25/2019 Patient is clinically doing well at this time still has pain in the right leg but well controlled on his home pain medications. The pain appears to be musculoskeletal without any fracture. DVT was ruled out. Patient takes antidepressant medications at home on nondialysis days as his blood pressure leilani ps on days of dialysis, on dose days of dialysis patient only takes Midrin. Patient's and his medications are on hold blood pressure is elevated. Patient will be resumed on his losartan his admission serum potassium is 5.1 and he need a basic metabolic profile again in 2-3 days as this losartan is being resumed. Patient is also not getting his Coreg in spite of which his heart rate is in 70s and 80s because of which I'll start him on a low-dose of Coreg on nondialysis days. Patient will be discharged today after hemodialysis. Patient is feeling well PHYSICAL EXAMINATION: GENERAL: The patient is alert and oriented x3, not in any acute distress. Obese HEENT: Pupils are round and equally reacting to light. EOMI. No scleral icterus. No conjunctival pallor. Normocephalic, atraumatic. No pharyngeal erythema. No thyromegaly. CARDIOVASCULAR: S1 and S2 present. No murmurs, rubs, or gallops. PULMONARY: Chest is clear to auscultation, no wheezing or crackles. ABDOMEN: Soft, nontender, nondistended, normoactive bowel sounds. No palpable organomegaly. MUSCULOSKELETAL: No joint swelling or deformity. EXTREMITIES: No cyanosis, clubbing, or pedal edema. NEUROLOGICAL: Gross neurological examination did not reveal any focal deficits. SKIN: No rashes. Assessment and Plan Assessment: Acute pancreatitis. No history of recent alcohol use or gallstones history. TG not elevated. Ultrasound abdomen showed no evidence of gallstones. Hepatic steatosis ESRD on hemodialysis TTS. Last hemodialysis today, Wednesday Diabetes type 2 insulin-dependent Fibromyalgia Hypertension History of pulmonary embolism Obstructive sleep apnea on CPAP Diabetic peripheral neuropathy Chronic lower back pain and shoulder pain No history of prior smoking Morbid obesity with BMI 40.2 Patient Condition at Discharge: Stable Plan - Discharge Summary Discharge Rx Participant: No New Discharge Prescriptions: New Losartan [Cozaar] 50 mg PO DAILY #30 tab Carvedilol [Coreg] 6.25 mg PO BID #30 tablet Continue Sevelamer [Renvela] 3,200 mg PO AC-TID Furosemide [Lasix] 60 mg PO BID Calcium Acetate [PhosLo] 667 mg PO DAILY Folic Acid-Vit B Complex-Vit C [Nephrocaps] 1 mg PO DAILY HYDROcodone/APAP 7.5-325MG [[place] 7.5-325] 1 tab PO Q8H PRN PRN Reason: Pain Insulin Detemir (Levemir) [Levemir] 60 unit SQ DAILY INSULIN LISPRO (humaLOG) [humaLOG] 10 units SQ AC-TID Lasalle-Lori 1 tab PO DAILY Lidocaine-Prilocaine Cream [Emla Cream 2.5%/2.5%] 1 applic TOPICAL DIRECTED PRN PRN Reason: PORT ACCESS Midodrine [ProAmatine] 5 mg PO MOWEFR Discontinued Carvedilol [Coreg] 25 mg PO DIRECTED Losartan Potassium 50 mg PO HS Discharge Medication List Sevelamer [Renvela] 3,200 mg PO AC-TID 03/02/18 [History] Furosemide [Lasix] 60 mg PO BID 11/13/18 [History] Calcium Acetate [PhosLo] 667 mg PO DAILY 04/26/19 [History] Folic Acid-Vit B Complex-Vit C [Nephrocaps] 1 mg PO DAILY 04/26/19 [History] HYDROcodone/APAP 7.5-325MG [[place] 7.5-325] 1 tab PO Q8H PRN 04/26/19 [History] INSULIN LISPRO (humaLOG) [humaLOG] 10 units SQ AC-TID 12/22/19 [History] Insulin Detemir (Levemir) [Levemir] 60 unit SQ DAILY 12/22/19 [History] Lidocaine-Prilocaine Cream [Emla Cream 2.5%/2.5%] 1 applic TOPICAL DIRECTED PRN 12/22/19 [History] Midodrine [ProAmatine] 5 mg PO MOWEFR 12/22/19 [History] Lasalle-Lori 1 tab PO DAILY 12/22/19 [History] Carvedilol [Coreg] 6.25 mg PO BID #30 tablet 12/25/19 [Rx] Losartan [Cozaar] 50 mg PO DAILY #30 tab 12/25/19 [Rx] Follow up Appointment(s)/Referral(s): Elke Quijano MD [STAFF PHYSICIAN] - 01/16/20 9:45 am (Wednesday) Shailesh Vazquez MD [Primary Care Provider] - 12/28/19 1:40 pm () Discharge Disposition: HOME SELF-CARE
[2019-12-25 15:18] VITALS: BP 166/86; PULSE 88; TEMP 98.6
--- NOTE | 2019-12-25 22:35 | PN ---
PROGRESS NOTE Patient is seen for followup for end-stage renal disease. The patient will be dialyzed today as he had missed his treatment on Wednesday. He is currently comfortable. Blood pressure this morning 160/89, heart rate 88 per minute. He is afebrile. Examination of the heart S1, S2. Examination of the lungs, decreased breath sounds at the bases. Abdomen is soft, nontender. Examination of lower extremities shows edema 1+ mainly in the right lower extremity. LABS: Show potassium of 4.9, sodium 138. ASSESSMENT: End-stage renal disease, on hemodialysis on a Wednesday, , Wednesday schedule. The patient missed his treatment on Wednesday. Therefore, he will be dialyzed today and then he will follow up as outpatient again tomorrow for his regular treatment schedule. PLAN: Hemodialysis today prior to discharge. Follow up tomorrow as outpatient for hemodialysis. MMODL / JUSTINN: [id number] /
== END 2019-12-25 15:07 | disposition home or self-care (01) | DRG 438 ==
LOC: EC 07:40 → 3SCARD 09:50
PROVIDERS: ADMIT Internal Medicine; ATTEND Internal Medicine
PROC: 5A09357 Assistance with Respiratory Ventilation, Less than 24 Consecutive Hours, Continuous Positive Airway Pressure (ICD-10-PCS; principal; 2019-12-22)
PROC: 5A1D70Z Performance of Urinary Filtration, Intermittent, Less than 6 Hours Per Day (ICD-10-PCS; principal; 2019-12-22)
DX: K85.90 Acute pancreatitis without necrosis or infection, unspecified (principal); N18.6 End stage renal disease; I12.0 Hypertensive chronic kidney disease with stage 5 chronic kidney disease or end stage renal disease; Z68.41 Body mass index [BMI] 40.0-44.9, adult; G47.33 Obstructive sleep apnea (adult) (pediatric); E11.22 Type 2 diabetes mellitus with diabetic chronic kidney disease; E11.42 Type 2 diabetes mellitus with diabetic polyneuropathy; E88.89 Other specified metabolic disorders; E66.01 Morbid (severe) obesity due to excess calories; D63.1 Anemia in chronic kidney disease; M79.7 Fibromyalgia; Z99.2 Dependence on renal dialysis; K76.0 Fatty (change of) liver, not elsewhere classified; M51.26 Other intervertebral disc displacement, lumbar region; H40.9 Unspecified glaucoma; G56.03 Carpal tunnel syndrome, bilateral upper limbs; G89.29 Other chronic pain; M25.519 Pain in unspecified shoulder; Z91.010 Allergy to peanuts; Z79.891 Long term (current) use of opiate analgesic; Z79.899 Other long term (current) drug therapy; Z79.4 Long term (current) use of insulin; Z86.711 Personal history of pulmonary embolism; Z87.01 Personal history of pneumonia (recurrent); Z98.890 Other specified postprocedural states; Z53.29 Procedure and treatment not carried out because of patient's decision for other reasons; Z86.14 Personal history of Methicillin resistant Staphylococcus aureus infection; Z82.49 Family history of ischemic heart disease and other diseases of the circulatory system; Z83.3 Family history of diabetes mellitus; Z80.52 Family history of malignant neoplasm of bladder
CPT/HCPCS: 36415; 71046; 76705; 80048; 80053; 80061; 82150; 83690; 83735; 83880; 84484; 85025; 85610; 85730; 90935; 93005; 93970; 96361; 96374; 96375; 99285

== ENCOUNTER 2020-02-22 09:51 | Emergency (ER) | payer MEDICARE, OTHER ==
[2020-02-22 10:10] VITALS: TEMP 98.7
--- NOTE | 2020-02-22 10:25 | ED ---
General Adult HPI - General Chief complaint: Abdominal Pain Stated complaint: Flank pain Time Seen by Provider: 02/22/20 09:53 Source: patient, EMS, RN notes reviewed Mode of arrival: EMS Limitations: no limitations - History of Present Illness Initial comments: 49-year-old male with a complicated past medical history currently on dialysis secondary to chronic renal failure presents to the emergency department for epigastric and left upper quadrant pain. Patient states this pain started last night but then worsened this morning while he was at dialysis. Patient states he is having diarrhea as well. States the symptoms of pain along with the geovanni rrhea are exactly consistent to previous symptoms of pancreatitis. Patient denies nausea or vomiting. Patient denies chest pain shortness of breath. Denies fevers or chills. Patient has no other complaints at this time including shortness of breath, chest pain, nausea or vomiting, headache, or visual changes. - Related Data Home Medications Medication Instructions Recorded Confirmed Sevelamer [Renvela] 3,200 mg PO AC-TID 03/02/18 12/22/19 Furosemide [Lasix] 60 mg PO BID 11/13/18 12/22/19 Calcium Acetate [PhosLo] 667 mg PO DAILY 04/26/19 12/22/19 Folic Acid-Vit B Complex-Vit C 1 mg PO DAILY 04/26/19 12/22/19 [Nephrocaps] HYDROcodone/APAP 7.5-325MG [[place] 1 tab PO Q8H PRN 04/26/19 12/22/19 7.5-325] INSULIN LISPRO (humaLOG) [humaLOG] 10 units SQ AC-TID 12/22/19 12/22/19 Insulin Detemir (Levemir) [Levemir] 60 unit SQ DAILY 12/22/19 12/22/19 Lidocaine-Prilocaine Cream [Emla 1 applic TOPICAL DIRECTED PRN 12/22/19 12/22/19 Cream 2.5%/2.5%] Midodrine [ProAmatine] 5 mg PO MOWEFR 12/22/19 12/22/19 [place] 1 tab PO DAILY 12/22/19 12/22/19 Previous Rx's Medication Instructions Recorded Carvedilol [Coreg] 6.25 mg PO BID #30 tablet 12/25/19 Losartan [Cozaar] 50 mg PO DAILY #30 tab 12/25/19 Azithromycin [Zithromax Z-pack] 250 mg PO DIRECTED #6 tab 02/22/20 Allergies Allergy/AdvReac Type Severity Reaction Status Date / Time peanut Allergy Anaphylaxis Verified 12/22/19 09:42 Review of Systems ROS Statement: Those systems with pertinent positive or pertinent negative responses have been documented in the HPI. ROS Other: All systems not noted in ROS Statement are negative. Past Medical History Past Medical History: Diabetes Mellitus, Eye Disorder, Fibromyalgia, Hypertension, Pneumonia, Pulmonary Embolus (PE), Renal Disease, Sleep Apnea/CPAP/BIPAP Additional Past Medical History / Comment(s): IDDM type II, DKA, neuropathy bilateral feet, obesity, chronic renal failure stage IV secondary to DM, norm ocytic anemia, chronic lower back and shoulders pain, herniated lumbar disk, glaucoma R eye, carpal tunnel syndrome bilaterally, bronchitis, PAULA with CPAP, folliculitis chest, abscesses to back and R groin with I&Ds. Left drop foot History of Any Multi-Drug Resistant Organisms: MRSA Date of last positivie culture/infection: 11/21/12 MDRO Source:: lower back Past Surgical History: Orthopedic Surgery Additional Past Surgical History / Comment(s): Incision and drainage back and R groin r/t abcesses removed, bilateral eye surgery for retinal repair, R eye surgery for glaucoma-has a drain in place. Past Anesthesia/Blood Transfusion Reactions: Postoperative Nausea & Vomiting (PONV) Additional Past Anesthesia/Blood Transfusion Reaction / Comment(s): pt stated has recieved blood transfusions-no known reaction. Past Psychological History: No Psychological Hx Reported Smoking Status: Never smoker Past Alcohol Use History: None Reported Past Drug Use History: None Reported - Past Family History Father Family Medical History: Diabetes Mellitus, Hypertension Additional Family Medical History / Comment(s): Bladder cancer in father. Father at the age of 78 from bladder cancer complications. Mother Additional Family Medical History / Comment(s): Mother of brain aneurysm General Exam Limitations: no limitations General appearance: alert, in no apparent distress Head exam: Present: atraumatic, normocephalic, normal inspection Eye exam: Present: normal appearance, PERRL, EOMI. Absent: scleral icterus, conjunctival injection, periorbital swelling ENT exam: Present: normal exam, mucous membranes moist Neck exam: Present: normal inspection. Absent: tenderness, meningismus, lymphadenopathy Respiratory exam: Present: normal lung sounds bilaterally. Absent: respiratory distress, wheezes, rales, rhonchi, stridor Cardiovascular Exam: Present: regular rate, normal rhythm, normal heart sounds. Absent: systolic murmur, diastolic murmur, rubs, gallop, clicks GI/Abdominal exam: Present: soft, tenderness (epigastric tenderness, LUQ tenderness, no lower abdominal tenderness), normal bowel sounds. Absent: distended, guarding, rebound, rigid Course Vital Signs 02/22/20 02/22/20 02/22/20 09:59 11:30 11:48 Temperature 98.7 F Pulse Rate 88 88 Respiratory 20 16 20 Rate Blood Pressure 149/92 126/77 O2 Sat by Pulse 98 97 Oximetry EKG Findings - EKG Comments: EKG Findings:: Normal sinus rhythm, ventricular rate 86, DE interval 166, QTc 466, there is some ST elevation noted in leads V1 and V2 that are consistent wi th previous EKG from 12/23/2019. Medical Decision Making - Medical Decision Making Patient had a gallbladder ultrasound on 12/22/2019 that showed no evidence of gallstones. There was hepatomegaly with coarsened liver which could be seen with hepatic steatosis, hepatitis, or diffuse hepatocellular disease. Vitals are stable. Patient is well appearing. Patient has epigastric and left upper quadrant tenderness. No right upper quadrant tenderness. Patient had an ultrasound of the gallbladder about 2 months ago which did not show any davie lithiasis or other abnormal gallbladder findings. CBC is unremarkable. CMP unremarkable. Patient is on dialysis for end-stage renal disease. He did receive this today. Lipase is 318 which is improved compared to last exam. Urinalysis is negative. Patient was given Dilaudid and had significant improvement in pain. Repeat abdominal exam revealed no tenderness. Chest x-ray was obtained which showed a possible right middle lobe pneumonia. Patient will be treated with azithromycin. At this time I discussed following up with primary care. She will return here if he has worsening pain or fevers. Patient is in agreement with this. I discussed this case with attending Dr. Streeter who agrees with this assessment and treatment plan. - Lab Data Result diagrams: 02/22/20 10:28 02/22/20 10:28 Lab Results 02/22/20 02/22/20 02/22/20 Range/Units 10:28 10:28 11:05 WBC 6.8 (3.8-10.6) k/uL RBC 4.52 (4.30-5.90) m/uL Hgb 13.7 (13.0-17.5) gm/dL Hct 40.0 (39.0-53.0) % MCV 88.7 (80.0-100.0) fL MCH 30.3 (25.0-35.0) pg MCHC 34.2 (31.0-37.0) g/dL RDW 12.6 (11.5-15.5) % Plt Count 164 (150-450) k/uL Neutrophils % 58 % Lymphocytes % 34 % Monocytes % 4 % Eosinophils % 3 % Basophils % 0 % Neutrophils # 3.9 (1.3-7.7) k/uL Lymphocytes # 2.3 (1.0-4.8) k/uL Monocytes # 0.3 (0-1.0) k/uL Eosinophils # 0.2 (0-0.7) k/uL Basophils # 0.0 (0-0.2) k/uL Sodium 137 (137-145) mmol/L Potassium 4.5 (3.5-5.1) mmol/L Chloride 101 (98-107) mmol/L Carbon Dioxide 25 (22-30) mmol/L Anion Gap 11 mmol/L BUN 73 H (9-20) mg/dL Creatinine 6.55 H (0.66-1.25) mg/dL Est GFR (CKD-EPI)AfAm 11 (>60 ml/min/1.73 sqM) Est GFR (CKD-EPI)NonAf 9 (>60 ml/min/1.73 sqM) Glucose 185 H (74-99) mg/dL Calcium 9.1 (8.4-10.2) mg/dL Total Bilirubin 0.5 (0.2-1.3) mg/dL AST 20 (17-59) U/L ALT 16 (4-49) U/L Alkaline Phosphatase 140 H (38-126) U/L Total Protein 7.3 (6.3-8.2) g/dL Albumin 4.1 (3.5-5.0) g/dL Amylase 76 (30-110) U/L Lipase 318 H (23-300) U/L Urine Color Yellow Urine Appearance Clear (Clear) Urine pH 6.5 (5.0-8.0) Ur Specific [place] 1.013 (1.001-1.035) Urine Protein 2+ H (Negative) Urine Glucose (UA) Negative (Negative) Urine Ketones Negative (Negative) Urine Blood Small H (Negative) Urine Nitrite Negative (Negative) Urine Bilirubin Negative (Negative) Urine Urobilinogen <2.0 (<2.0) mg/dL Ur Leukocyte Esterase Negative (Negative) Urine RBC 1 (0-5) /hpf Urine WBC 1 (0-5) /hpf Urine Mucus Rare H (None) /hpf Disposition Clinical Impression: Abdominal pain, Pneumonia Disposition: HOME SELF-CARE Condition: Good Instructions (If sedation given, give patient instructions): Abdominal Pain (ED), Pneumonia (ED) Additional Instructions: Please take antibiotic as directed. Please follow-up with primary care in 1-2 days. Return to the emergency department for any worsening symptoms. Prescriptions: Azithromycin [Zithromax Z-pack] 250 mg PO DIRECTED #6 tab Is patient prescribed a controlled substance at d/c from ED?: No Referrals: Shailesh Vazquez MD [Primary Care Provider] - 1-2 days Time of Disposition: 12:07
[2020-02-22 10:40] LABS: Basophils % (A) 0 %; Eosinophils # (A) 0.2 k/uL (0-0.7); Eosinophils % (A) 3 %; HGB 13.7 gm/dL (13.0-17.5); Lymphocytes # (A) 2.3 k/uL (1.0-4.8); Lymphocytes % (A) 34 %; MCH 30.3 pg (25.0-35.0); MCHC 34.2 g/dL (31.0-37.0); MCV 88.7 fL (80.0-100.0); Mean Platelet Volume 9.1; Monocytes # (A) 0.3 k/uL (0-1.0); Monocytes % (A) 4 %; Neutrophils # (A) 3.9 k/uL (1.3-7.7); Neutrophils % (A) 58 %; Platelet Count 164 k/uL (150-450); RBC 4.52 m/uL (4.30-5.90); RDW 12.6 % (11.5-15.5); WBC 6.8 k/uL (3.8-10.6)
[2020-02-22] MEDS ORDERED: HYDROmorphone 0.5 MG/0.5 ML SYRINGE IVP STA (10:51)
[2020-02-22 10:54] LABS: Albumin 4.1 g/dL (3.5-5.0); Calcium 9.1 mg/dL (8.4-10.2); Potassium 4.5 mmol/L (3.5-5.1); Total Bilirubin 0.5 mg/dL (0.2-1.3); Total Protein 7.3 g/dL (6.3-8.2)
[2020-02-22 11:23] LABS: Appearance,Urine Clear (Clear); Bilirubin,Urine Negative (Negative); Blood,Urine Small (Negative); Color,Urine Yellow; Glucose,Urine (UA) Negative (Negative); Ketones,Urine Negative (Negative); Leukocyte Esterase,Urine Negative (Negative); Mucus,Urine Rare /hpf; Nitrite,Urine Negative (Negative); PH, Urine 6.5 (5.0-8.0); Protein,Urine 2+ (Negative); RBC,Urine 1 /hpf (0-5); Specific Gravity,Urine 1.013 (1.001-1.035); Urobilinogen,Urine <2.0 mg/dL (<2.0); WBC,Urine 1 /hpf (0-5)
--- NOTE | 2020-02-22 11:26 | XR ---
EXAMINATION TYPE: XR chest 1V portable DATE OF EXAM: 02/22/2020 COMPARISON: 12/22/2019 INDICATION: Left upper quadrant pain TECHNIQUE: Single frontal view of the chest is obtained. FINDINGS: The heart size is normal. The pulmonary vasculature is normal. There is a mild infiltrate in the RIGHT lower lobe which is a change from comparison. Correlate for a telectasis or pneumonia. IMPRESSION: 1. Mild right lower lobe infiltrate. Correlate for atelectasis or pneumonia.
[2020-02-22 12:59] VITALS: BP 139/76; PULSE 80; RESP 16
== END 2020-02-22 13:38 | disposition home or self-care (01) ==
LOC: EC 09:51
DX: J18.9 Pneumonia, unspecified organism (principal); R16.0 Hepatomegaly, not elsewhere classified; R10.12 Left upper quadrant pain; R10.13 Epigastric pain; N18.6 End stage renal disease; E11.22 Type 2 diabetes mellitus with diabetic chronic kidney disease; E11.42 Type 2 diabetes mellitus with diabetic polyneuropathy; E11.10 Type 2 diabetes mellitus with ketoacidosis without coma; M79.7 Fibromyalgia; I13.11 Hypertensive heart and chronic kidney disease without heart failure, with stage 5 chronic kidney disease, or end stage renal disease; G47.33 Obstructive sleep apnea (adult) (pediatric); D63.1 Anemia in chronic kidney disease; Z91.010 Allergy to peanuts; Z79.4 Long term (current) use of insulin; Z79.899 Other long term (current) drug therapy; Z86.14 Personal history of Methicillin resistant Staphylococcus aureus infection; Z99.2 Dependence on renal dialysis; Z99.89 Dependence on other enabling machines and devices
CPT/HCPCS: 36415; 71045; 80053; 81001; 82150; 83690; 85025; 93005; 96374; 99284

== ENCOUNTER 2020-07-03 09:59 | Day surgery (SDC) | payer MEDICARE, OTHER ==
[2020-06-27 11:19] VITALS: BMI 41.3
[~2020-07-03 09:59] MED LIST: DEXAMETHASONE SOD PHOSPHATE 10 MG/ML 1 ML VIAL IV ONE; HYDROmorphone 0.5 MG/0.5 ML SYRINGE IVP PRN; LACTATED RINGERS 1,000 ML IV SCH; ONDANSETRON 4 MG/2 ML VIAL IVP ONE
[2020-07-03] MEDS ORDERED: SODIUM CHLORIDE 0.9% 1,000 ML IV ONE (10:42)
[2020-07-03 10:49] VITALS: RESP 16; TEMP 98.3
[2020-07-03] MEDS ORDERED: INSULIN ASPART (NovoLOG) 100 UNIT/ML VIAL SQ ONE (10:53)
[2020-07-03 10:54] LABS: Glucose,Whole Blood 375 mg/dL (75-99)
[2020-07-03 11:07] LABS: Basophils # (A) 0.1 k/uL (0-0.2); Basophils % (A) 1 %; Eosinophils # (A) 0.1 k/uL (0-0.7); Eosinophils % (A) 2 %; HCT 39.9 % (39.0-53.0); HGB 12.7 gm/dL (13.0-17.5); Lymphocytes # (A) 1.7 k/uL (1.0-4.8); Lymphocytes % (A) 35 %; MCH 29.2 pg (25.0-35.0); MCHC 31.7 g/dL (31.0-37.0); Mean Platelet Volume 9.7; Monocytes # (A) 0.2 k/uL (0-1.0); Monocytes % (A) 5 %; Neutrophils # (A) 2.8 k/uL (1.3-7.7); Neutrophils % (A) 56 %; Platelet Count 158 k/uL (150-450); RBC 4.34 m/uL (4.30-5.90); RDW 13.1 % (11.5-15.5)
[2020-07-03 11:17] LABS: Calcium 8.3 mg/dL (8.4-10.2)
[2020-07-03] MEDS ORDERED: fentaNYL (PF) 50 MCG/ML 2 ML AMP IVP ONE ×2 (14:24→14:36)
[2020-07-03] MEDS ORDERED: MIDAZOLAM 2 MG/2 ML VIAL IVP ONE (14:24)
[2020-07-03] MEDS ORDERED: LIDOCAINE 1% INJ 10MG/ML (20 ML MDV) SQ ONE (14:24)
[2020-07-03] MEDS ORDERED: HYDROmorphone 1 MG/ML 1 ML SYRINGE IVP ONE (14:47)
[2020-07-03] MEDS ORDERED: IOPAMIDOL-250 100ML BTL INTRAARTER ONE (15:19)
--- NOTE | 2020-07-03 15:22 | P.OP ---
Date of Procedure: 07/03/20 Description of Procedure: Preoperative diagnosis: End-stage renal disease, malfunctioning left upper extremity av fistula Postoperative diagnosis: Same Procedure: [#1 ultrasound guided left fistula access #2 fish that M #3 percutaneous transluminal balloon angioplasty 5 x 60, 6 x 60, arterial anastomosis, fistula stenosis #4 percutaneous transluminal balloon and a positive drug-coated balloon 6 x 80 #5 moderate conscious sedation with Versed, fentanyl and Dilaudid 42 minutes] Surgeon: Farnaz Rome D.O. EBL: [Less than 5 mL] IV fluids: [See records] Urine output: [Not measured] Drains: [None] Complications: [None immediately apparent] Condition: [Stable to recovery] Operative indication and findings: [Patient is a 41-year-old male with end-stage renal disease who has been having decreased clearance at dialysis and decreased flows through this fistula. He is on High velocities proximally with some evidence of narrowing on ultrasound. He is brought in today for fistulogram possible angioplasty. During the procedure he was found to have stenosis of greater than 80% at the arterial anastomosis as well as just beyond the anastomosis. The remainder the outflow looked good without any significant obvious flow-limiting stenoses. At the conclusion of the procedure there did remain approximately 50% stenosis] Procedure in detail: [The patient taken to the special suite and placed in supine position. The left upper extremity was prepped and draped in usual sterile fashion. A preprocedure timeout was performed, all parties are in agreement. The ultrasound was utilized and the AV fistula was identified the skin overlying was anesthetized and a micro-access needle was used to place in the direction towards the arterial anastomosis. It was upsized to a 6-[place] sheath was Seldinger technique. A fistulogram was performed revealing high- grade stenosis of the arterial anastomosis and proximal fistula. There was no significant obvious stenosis of the outflow A Glidewire was used to cross and balloon angioplasty was performed with first a 5 x 60 balloon followed by 6 x 60 balloon. There was no significant waste. Therefore a 6 x 80 drug-coated balloon was then placed and held up in place for 3 minutes. Guidewires and catheters removed. Repeat fistulogram did reveal significant improvement of the areas of stenosis. There is a good palpable thrill throughout the fistula. A 3-0 Prolene was utilized and a [id number]-[id number] suture was placed at the puncture site. A Band-Aid dressing was placed. The patient was then transported back to recovery in stable condition and tolerated the procedure well.] Plan - Discharge Summary Discharge Rx Participant: No New Discharge Prescriptions: No Action Sevelamer [Renvela] 3,200 mg PO AC-TID Furosemide [Lasix] 80 mg PO BID Calcium Acetate [PhosLo] 667 mg PO DAILY Folic Acid-Vit B Complex-Vit C [Nephrocaps] 1 mg PO DAILY HYDROcodone/APAP 7.5-325MG [[place] 7.5-325] 1 tab PO Q8H PRN PRN Reason: Pain Insulin Detemir (Levemir) [Levemir] 60 unit SQ DAILY INSULIN LISPRO (humaLOG) [humaLOG] 10 units SQ AC-TID [place]-Lori 1 tab PO DAILY Lidocaine-Prilocaine Cream [Emla Cream 2.5%/2.5%] 1 applic TOPICAL DIRECTED PRN PRN Reason: PORT ACCESS Midodrine [ProAmatine] 5 mg PO MOWEFR Losartan [Cozaar] 50 mg PO DAILY #30 tab carvediloL [Coreg] 6.25 mg PO BID #30 tablet Carvedilol [Coreg] 25 mg PO BID Discharge Medication List Sevelamer [Renvela] 3,200 mg PO AC-TID 03/02/18 [History] Furosemide [Lasix] 80 mg PO BID 11/13/18 [History] Calcium Acetate [PhosLo] 667 mg PO DAILY 04/26/19 [History] Folic Acid-Vit B Complex-Vit C [Nephrocaps] 1 mg PO DAILY 04/26/19 [History] HYDROcodone/APAP 7.5-325MG [[place] 7.5-325] 1 tab PO Q8H PRN 04/26/19 [History] INSULIN LISPRO (humaLOG) [humaLOG] 10 units SQ AC-TID 12/22/19 [History] Insulin Detemir (Levemir) [Levemir] 60 unit SQ DAILY 12/22/19 [History] Lidocaine-Prilocaine Cream [Emla Cream 2.5%/2.5%] 1 applic TOPICAL DIRECTED PRN 12/22/19 [History] Midodrine [ProAmatine] 5 mg PO MOWEFR 12/22/19 [History] [place]-Lori 1 tab PO DAILY 12/22/19 [History] Losartan [Cozaar] 50 mg PO DAILY #30 tab 12/25/19 [Rx] carvediloL [Coreg] 6.25 mg PO BID #30 tablet 12/25/19 [Rx] Carvedilol [Coreg] 25 mg PO BID 06/27/20 [History]
--- NOTE | 2020-07-03 17:16 | IR ---
EXAMINATION TYPE: IR fistula/abscess/sinus tract DATE OF EXAM: 07/03/2020 CLINICAL HISTORY: Stenosis of AV fistula TECHNIQUE: Fluoroscopy. COMPARISON: None. FINDINGS: Fluoroscopic guidance was provided during procedure for performing physician. A total of 7.2 minutes of fluoroscopic time was utilized during the procedure and 351 images was acquired. Ramón e see operative report for additional details. IMPRESSION: As Above.
[2020-07-03 18:23] VITALS: BP 139/73; PULSE 71
== END 2020-07-03 15:12 | disposition home or self-care (01) ==
LOC: CATHCVL 09:59
PROVIDERS: ATTEND Surgery
DX: T82.858A Stenosis of other vascular prosthetic devices, implants and grafts, initial encounter (principal); I12.0 Hypertensive chronic kidney disease with stage 5 chronic kidney disease or end stage renal disease; E11.22 Type 2 diabetes mellitus with diabetic chronic kidney disease; N18.6 End stage renal disease; Z99.2 Dependence on renal dialysis; Z80.52 Family history of malignant neoplasm of bladder; Z80.8 Family history of malignant neoplasm of other organs or systems; M79.7 Fibromyalgia; G25.81 Restless legs syndrome; Z79.4 Long term (current) use of insulin; Z79.899 Other long term (current) drug therapy; Z98.890 Other specified postprocedural states
CPT/HCPCS: 36902; 80048; 85025; C1769 ×2; C1725; C2623; J2250; J2001; J3010; J1170; Q9966

== ENCOUNTER 2020-10-08 08:11 | Observation (INO) | payer MEDICARE, OTHER ==
[2020-10-08] MEDS ORDERED: NITROGLYCERIN SL TABS 0.4 MG TAB SUBLINGUAL STA ×3 (08:24)
[2020-10-08] MEDS ORDERED: ASPIRIN 81 MG PO STA (08:24)
--- NOTE | 2020-10-08 08:31 | ED ---
General Adult HPI - General Stated complaint: chest pain Time Seen by Provider: 10/08/20 08:13 Source: patient, EMS, RN notes reviewed Mode of arrival: EMS Limitations: no limitations - History of Present Illness Initial comments: Patient is a pleasant 50-year-old male presenting to the emergency Department with chest discomfort. Onset of symptoms was a couple of days ago. Symptoms have been progressively worsening since that time. Discomfort is hard to describe. Discomfort is lower sternal region with radiation towards the back however no back discomfort. No dyspnea. No abdominal pain. No history of similar symptoms previously. No nausea vomiting. Symptoms do somewhat worsened with position changes or deep breaths. Patient did not have his dialysis done at this morning. - Related Data Home Medications Medication Instructions Recorded Confirmed Sevelamer [Renvela] 3,200 mg PO AC-TID 03/02/18 07/03/20 Furosemide [Lasix] 80 mg PO BID 11/13/18 07/03/20 Calcium Acetate [PhosLo] 667 mg PO DAILY 04/26/19 07/03/20 Folic Acid-Vit B Complex-Vit C 1 mg PO DAILY 04/26/19 07/03/20 [Nephrocaps] HYDROcodone/APAP 7.5-325MG [[place] 1 tab PO Q8H PRN 04/26/19 07/03/20 7.5-325] INSULIN LISPRO (humaLOG) [humaLOG] 10 units SQ AC-TID 12/22/19 07/03/20 Insulin Detemir (Levemir) [Levemir] 60 unit SQ DAILY 12/22/19 07/03/20 Lidocaine-Prilocaine Cream [Emla 1 applic TOPICAL DIRECTED PRN 12/22/19 07/03/20 Cream 2.5%/2.5%] Midodrine [ProAmatine] 5 mg PO MOWEFR 12/22/19 07/03/20 [place]-Lori 1 tab PO DAILY 12/22/19 07/03/20 Carvedilol [Coreg] 25 mg PO BID 06/27/20 07/03/20 Previous Rx's Medication Instructions Recorded Losartan [Cozaar] 50 mg PO DAILY #30 tab 12/25/19 carvediloL [Coreg] 6.25 mg PO BID #30 tablet 12/25/19 Allergies Allergy/AdvReac Type Severity Reaction Status Date / Time peanut Allergy Anaphylaxis Verified 10/08/20 08:26 Review of Systems ROS Statement: Those systems with pertinent positive or pertinent negative responses have been documented in the HPI. ROS Other: All systems not noted in ROS Statement are negative. Constitutional: Denies: fever Eyes: Denies: eye pain ENT: Denies: ear pain Respiratory: Denies: cough, dyspnea Cardiovascular: Reports: as per HPI, chest pain Endocrine: Denies: fatigue Gastrointestinal: Denies: abdominal pain Genitourinary: Denies: dysuria Musculoskeletal: Denies: back pain Skin: Denies: rash Neurological: Denies: weakness Past Medical History Past Medical History: Diabetes Mellitus, Eye Disorder, Fibromyalgia, Hypertension, Pneumonia, Pulmonary Embolus (PE), Renal Disease, Sleep A pnea/CPAP/BIPAP Additional Past Medical History / Comment(s): IDDM type II, DKA, neuropathy bilateral feet, obesity, chronic renal failure stage IV secondary to DM, normocytic anemia, chronic lower back and shoulders pain, herniated lumbar disk, glaucoma R eye, carpal tunnel syndrome bilaterally, bronchitis, PAULA with CPAP. Left drop foot,fistula leeft upper arm,hemodialysis ,, History of Any Multi-Drug Resistant Organisms: MRSA Date of last positivie culture/infection: 11/21/12 MDRO Source:: lower back Past Surgical History: Orthopedic Surgery Additional Past Surgical History / Comment(s): Incision and drainage back and R groin r/t abcesses removed, bilateral eye surgery for retinal repair, R eye surgery for glaucoma-. fistula Past Anesthesia/Blood Transfusion Reactions: Postoperative Nausea & Vomiting (PONV) Additional Past Anesthesia/Blood Transfusion Reaction / Comment(s): pt stated has recieved blood transfusions-no known reaction. Smoking Status: Never smoker - Past Family History Father Family Medical History: Diabetes Mellitus, Hypertension Additional Family Medical History / Comment(s): Bladder cancer in father. Father at the age of 78 from bladder cancer complications. Mother Additional Family Medical History / Comment(s): Mother of brain aneurysm General Exam Limitations: no limitations General appearance: alert, in no apparent distress Head exam: Present: normocephalic Eye exam: Present: normal appearance Neck exam: Present: normal inspection Respiratory exam: Present: normal lung sounds bilaterally. Absent: chest wall tenderness Cardiovascular Exam: Present: regular rate, normal rhythm Expanded Peripheral pulses: 2+: Posterior Tibialis (R), Posterior Tibialis (L) GI/Abdominal exam: Present: soft. Absent: distended, tenderness Extremities exam: Present: normal inspection. Absent: pedal edema, calf tenderness Back exam: Present: normal inspection. Absent: tenderness Neurological exam: Present: alert Psychiatric exam: Present: normal affect, normal mood Skin exam: Present: normal color Course Vital Signs 10/08/20 08:14 Temperature 98.4 F Pulse Rate 82 Respiratory 20 Rate Blood Pressure 153/79 O2 Sat by Pulse 100 Oximetry EKG Findings - EKG Comments: EKG Findings:: Normal sinus rhythm 89. CO 172. QRS 80. QT 404. QTC 491. Left axis. Full described here for LVH. Inferior T wave inversion. Medical Decision Making - Medical Decision Making Patient reevaluated and symptoms have improved however not resolved. Patient updated on results and plan. Case was discussed with Dr. Garcia with [facility], who will admit covering for hospital call. - Lab Data Result diagrams: 10/08/20 09:30 10/08/20 09:30 Lab Results 10/08/20 10/08/20 10/08/20 Range/Units 09:30 09:30 09:30 WBC 7.3 (3.8-10.6) k/uL RBC 4.32 (4.30-5.90) m/uL Hgb 13.0 (13.0-17.5) gm/dL Hct 38.8 L (39.0-53.0) % MCV 90.0 (80.0-100.0) fL MCH 30.1 (25.0-35.0) pg MCHC 33.5 (31.0-37.0) g/dL RDW 12.7 (11.5-15.5) % Plt Count 162 (150-450) k/uL MPV 8.6 Neutrophils % 67 % Lymphocytes % 25 % Monocytes % 5 % Eosinophils % 2 % Basophils % 1 % Neutrophils # 4.9 (1.3-7.7) k/uL Lymphocytes # 1.8 (1.0-4.8) k/uL Monocytes # 0.4 (0-1.0) k/uL Eosinophils # 0.1 (0-0.7) k/uL Basophils # 0.0 (0-0.2) k/uL PT 10.3 (9.0-12.0) sec INR 1.0 (<1.2) APTT 27.4 (22.0-30.0) sec D-Dimer 0.51 (<0.60) mg/L FEU Sodium 138 (137-145) mmol/L Potassium 4.5 (3.5-5.1) mmol/L Chloride 100 (98-107) mmol/L Carbon Dioxide 27 (22-30) mmol/L Anion Gap 11 mmol/L BUN 76 H (9-20) mg/dL Creatinine 9.61 H* (0.66-1.25) mg/dL Est GFR (CKD-EPI)AfAm 7 (>60 ml/min/1.73 sqM) Est GFR (CKD-EPI)NonAf 6 (>60 ml/min/1.73 sqM) Glucose 268 H (74-99) mg/dL Calcium 8.1 L (8.4-10.2) mg/dL Magnesium 2.0 (1.6-2.3) mg/dL Total Bilirubin 0.7 (0.2-1.3) mg/dL AST 15 L (17-59) U/L ALT 13 (4-49) U/L Alkaline Phosphatase 80 (38-126) U/L Troponin I (0.000-0.034) ng/mL Total Protein 6.5 (6.3-8.2) g/dL Albumin 3.7 (3.5-5.0) g/dL Amylase 61 (30-110) U/L Lipase 252 (23-300) U/L 10/08/20 Range/Units 09:30 WBC (3.8-10.6) k/uL RBC (4.30-5.90) m/uL Hgb (13.0-17.5) gm/dL Hct (39.0-53.0) % MCV (80.0-100.0) fL MCH (25.0-35.0) pg MCHC (31.0-37.0) g/dL RDW (11.5-15.5) % Plt Count (150-450) k/uL MPV Neutrophils % % Lymphocytes % % Monocytes % % Eosinophils % % Basophils % % Neutrophils # (1.3-7.7) k/uL Lymphocytes # (1.0-4.8) k/uL Monocytes # (0-1.0) k/uL Eosinophils # (0-0.7) k/uL Basophils # (0-0.2) k/uL PT (9.0-12.0) sec INR (<1.2) APTT (22.0-30.0) sec D-Dimer (<0.60) mg/L FEU Sodium (137-145) mmol/L Potassium (3.5-5.1) mmol/L Chloride (98-107) mmol/L Carbon Dioxide (22-30) mmol/L Anion Gap mmol/L BUN (9-20) mg/dL Creatinine (0.66-1.25) mg/dL Est GFR (CKD-EPI)AfAm (>60 ml/min/1.73 sqM) Est GFR (CKD-EPI)NonAf (>60 ml/min/1.73 sqM) Glucose (74-99) mg/dL Calcium (8.4-10.2) mg/dL Magnesium (1.6-2.3) mg/dL Total Bilirubin (0.2-1.3) mg/dL AST (17-59) U/L ALT (4-49) U/L Alkaline Phosphatase (38-126) U/L Troponin I <0.012 (0.000-0.034) ng/mL Total Protein (6.3-8.2) g/dL Albumin (3.5-5.0) g/dL Amylase (30-110) U/L Lipase (23-300) U/L - Radiology Data Radiology results: image reviewed (Chest x-ray shows possible atelectasis favored over pneumonia.) Disposition Clinical Impression: Chest pain Disposition: ADMITTED IP TO THIS [facility] Is patient prescribed a controlled substance at d/c from ED?: No Referrals: None,Stated [Primary Care Provider] - 1-2 days Decision Time: 11:26
[2020-10-08] MEDS ORDERED: HYDROmorphone 1 MG/ML 1 ML SYRINGE IVP STA (09:41)
[2020-10-08 10:08] LABS: Basophils % (A) 1 %; Eosinophils # (A) 0.1 k/uL (0-0.7); Eosinophils % (A) 2 %; HCT 38.8 % (39.0-53.0); Lymphocytes # (A) 1.8 k/uL (1.0-4.8); Lymphocytes % (A) 25 %; MCH 30.1 pg (25.0-35.0); MCHC 33.5 g/dL (31.0-37.0); Mean Platelet Volume 8.6; Monocytes # (A) 0.4 k/uL (0-1.0); Monocytes % (A) 5 %; Neutrophils # (A) 4.9 k/uL (1.3-7.7); Neutrophils % (A) 67 %; Platelet Count 162 k/uL (150-450); RBC 4.32 m/uL (4.30-5.90); RDW 12.7 % (11.5-15.5); WBC 7.3 k/uL (3.8-10.6)
--- NOTE | 2020-10-08 10:13 | XR ---
EXAMINATION TYPE: XR chest 2V DATE OF EXAM: 10/08/2020 COMPARISON: 02/22/2020 TECHNIQUE: PA and lateral views submitted. HISTORY: Pain FINDINGS: The lungs are clear and there is no pneumothorax, pleural effusion, or focal pneumonia. Subsegmenta l changes at both lung bases. Arthropathy of the shoulders. Heart size normal. No overt failure. No p neumothorax. IMPRESSION: 1. Basilar atelectasis favored over pneumonia..
[2020-10-08 10:18] LABS: Albumin 3.7 g/dL (3.5-5.0); Calcium 8.1 mg/dL (8.4-10.2); Potassium 4.5 mmol/L (3.5-5.1); Total Bilirubin 0.7 mg/dL (0.2-1.3); Total Protein 6.5 g/dL (6.3-8.2)
[2020-10-08 10:22] LABS: D-Dimer 0.51 mg/L FEU (<0.60); Partial Thromboplastin Time 27.4 sec (22.0-30.0); Prothrombin Time 10.3 sec (9.0-12.0)
[2020-10-08] MEDS ORDERED: NITROGLYCERIN SL TABS 0.4 MG TAB SUBLINGUAL PRN (11:26)
[2020-10-08] MEDS ORDERED: MORPHINE SULFATE 4 MG/ML SYRINGE IV PRN (11:26)
[2020-10-08] MEDS: NITROGLYCERIN OINT 1 INCH/GM PACKET TOPICAL SCH (12:25)
--- NOTE | 2020-10-08 17:51 | P.HPIM ---
History of Present Illness H&P Date: 10/08/20 Chief Complaint: Chest pain The patient is a 50-year-old male with history of end-stage renal disease on dialysis with his dialysis today and presented with an episode of chest pain. The patient states he feels like he has a pain 6 out of 10 on his spine. He denies any nausea or vomiting. The patient states that his pain has been ongoing for a number of days he denies it radiating to his back." Feels that he gets on his spine. He feels the pain is worse with movement he denies any fevers or chills he ambulates with a cane he was brought to the emergency room and hospitalized for further workup and management. Review of Systems Complete review of systems done negative other than stated above Past Medical History Past Medical History: Diabetes Mellitus, Eye Disorder, Fibromyalgia, Hypertension, Pneumonia, Pulmonary Embolus (PE), Renal Disease, Sleep Apnea/CPAP/BIPAP Additional Past Medical History / Comment(s): IDDM type II, DKA, neuropathy bilateral feet, obesity, chronic renal failure stage IV secondary to DM, normocytic anemia, chronic lower back and shoulders pain, herniated lumbar disk, glaucoma R eye, carpal tunnel syndrome bilaterally, bronchitis, PAULA with CPAP. Left drop foot,fistula leeft upper arm,hemodialysis History of Any Multi-Drug Resistant Organisms: MRSA Date of last positivie culture/infection: 11/21/12 MDRO Source:: lower back Past Surgical History: Orthopedic Surgery Additional Past Surgical History / Comment(s): Incision and drainage back and R groin r/t abcesses removed, bilateral eye surgery for retinal repair, R eye surgery for glaucoma-. fistula Past Anesthesia/Blood Transfusion Reactions: Postoperative Nausea & Vomiting (PONV) Additional Past Anesthesia/Blood Transfusion Reaction / Comment(s): pt stated has recieved blood transfusions-no known reaction. Smoking Status: Never smoker - Past Family History Father Family Medical History: Diabetes Mellitus, Hypertension Additional Family Medical History / Comment(s): Bladder cancer in father. Father at the age of 78 from bladder cancer complications. Mother Additional Family Medical History / Comment(s): Mother of brain aneurysm Medications and Allergies Home Medications Medication Instructions Recorded Confirmed Type Sevelamer [Renvela] 2,400 mg PO AC-TID 03/02/18 10/08/20 History Folic Acid-Vit B Complex-Vit C 1 cap PO DAILY 04/26/19 10/08/20 History [Nephrocaps] HYDROcodone/APAP 7.5-325MG [[place] 1 tab PO TID PRN 04/26/19 10/08/20 History 7.5-325] Insulin Detemir (Levemir) [Levemir] 60 unit SQ DAILY 12/22/19 10/08/20 History Lidocaine-Prilocaine Cream [Emla 1 applic TOPICAL TUTHSA PRN 12/22/19 10/08/20 History Cream 2.5%/2.5%] [place]-Lori 1 tab PO DAILY 12/22/19 10/08/20 History Carvedilol [Coreg] 25 mg PO SUMOWEFR@799,199906/27/20 10/08/20 History Furosemide [Lasix] 80 mg PO BID 10/08/20 10/08/20 History INSULIN ASPART (NovoLOG) [NovoLOG 10 unit SQ TID 10/08/20 10/08/20 History (formulary)] Ketoconazole 2% Cream [Nizoral 2%] 1 applic TOPICAL DAILY 10/08/20 10/08/20 History Losartan [Cozaar] 25 mg PO DAILY PRN 10/08/20 10/08/20 History Pantoprazole [Protonix] 40 mg PO DAILY 10/08/20 10/08/20 History carvediloL [Coreg] 6.25 mg PO TUTHSA@199910/08/20 10/08/20 History Allergies Allergy/AdvReac Type Severity Reaction Status Date / Time peanut Allergy Anaphylaxis Verified 10/08/20 12:25 Physical Exam Vitals: Vital Signs Temp Pulse Resp BP Pulse Ox 10/08/20 14:35 85 18 142/98 97 10/08/20 13:00 97.6 F 82 20 128/85 97 10/08/20 11:30 80 18 114/77 95 10/08/20 10:30 82 19 110/71 95 10/08/20 08:14 98.4 F 82 20 153/79 100 Intake and Output 10/08/20 10/08/20 10/08/20 06:59 14:59 22:59 Other: Weight 142.882 kg - Constitutional General appearance: mild distress, obese - EENT Eyes: PERRLA - Neck Neck: normal ROM - Respiratory Respiratory: bilateral: CTA - Cardiovascular Rhythm: regular - Gastrointestinal General gastrointestinal: normal bowel sounds - Integumentary Integumentary: normal - Neurologic Neurologic: CNII-XII intact - Musculoskeletal Musculoskeletal: strength equal bilaterally - Psychiatric Psychiatric: A&O x's 3, appropriate affect Results CBC & Chem 7: 10/08/20 09:30 10/08/20 09:30 Labs: Abnormal Lab Results - Last 24 Hours (Table) 10/08/20 10/08/20 Range/Units 09:30 09:30 Hct 38.8 L (39.0-53.0) % BUN 76 H (9-20) mg/dL Creatinine 9.61 H* (0.66-1.25) mg/dL Glucose 268 H (74-99) mg/dL Calcium 8.1 L (8.4-10.2) mg/dL AST 15 L (17-59) U/L Assessment and Plan (1) Chest pain Narrative/Plan: Serial cardiac enzymes, morphine and oxygen nitro aspirin, Current Visit: Yes Status: Acute Code(s): R07.9 - CHEST PAIN, UNSPECIFIED SNOMED Code(s): 59625116 (2) Benign hypertension with ESRD (end-stage renal disease) Narrative/Plan: Nephrology consult for dialysis Current Visit: No Status: Acute Code(s): I12.0 - HYP CHR KIDNEY DISEASE W STAGE 5 CHR KIDNEY DISEASE OR ESRD; N18.6 - END STAGE RENAL DISEASE SNOMED Code(s): 17188580 (3) Congestive heart failure Narrative/Plan: Chronic congestive heart failure managed fluid status with dialysis, no vitamin Melly noted on chest x-ray Current Visit: No Status: Acute Code(s): I50.9 - HEART FAILURE, UNSPECIFIED SNOMED Code(s): 03711817 (4) Anxiety Narrative/Plan: Continue outpatient regiment and titrate as needed Current Visit: No Status: Acute Code(s): F41.9 - ANXIETY DISORDER, UNSPECIFIED SNOMED Code(s): 01539521 (5) Diabetes Current Visit: No Status: Acute Code(s): E11.9 - TYPE 2 DIABETES MELLITUS WITHOUT COMPLICATIONS SNOMED Code(s): 91234608 (6) Pneumonia Narrative/Plan: Patient afebrile no leukocytosis no clear infiltrate noted on chest x-ray we'll monitor Current Visit: No Status: Acute Code(s): J18.9 - PNEUMONIA, UNSPECIFIED ORGANISM SNOMED Code(s): 663032964
[2020-10-08] MEDS ORDERED: HYDROcodone/APAP 7.5-325MG 1 EACH TAB PO PRN (17:53)
[2020-10-08] MEDS ORDERED: LOSARTAN 25 MG TAB PO PRN (17:53)
[2020-10-08] MEDS ORDERED: LIDOCAINE-PRILOCAINE 2.5-2.5% CREAM 5 GM TUBE TOPICAL PRN (17:53)
[2020-10-08] MEDS: [UNRECOGNIZED DRUG - OTHER] PO SCH (18:55)
[2020-10-08] MEDS: INSULIN DETEMIR (LEVEMIR) 100 UNIT/ML SYR SQ SCH (19:00)
[2020-10-08] MEDS ORDERED: carvediloL 6.25 MG TAB PO SCH (20:00)
[2020-10-08 23:23] LABS: Glucose,Whole Blood 277 mg/dL (75-99)
[2020-10-08] MEDS: INSULIN ASPART (NovoLOG) 100 UNIT/ML VIAL SQ SCH (23:59)
[2020-10-09] MEDS: NITROGLYCERIN OINT 1 INCH/GM PACKET TOPICAL SCH ×3 (00:01→06:46)
[2020-10-09 06:13] LABS: Glucose,Whole Blood 134 mg/dL (75-99)
[2020-10-09] MEDS: INSULIN ASPART (NovoLOG) 100 UNIT/ML VIAL SQ SCH ×2 (06:36→15:36)
[2020-10-09] MEDS ORDERED: PANTOPRAZOLE 40 MG TABLET PO SCH (07:30)
[2020-10-09] MEDS ORDERED: FUROSEMIDE 40 MG TAB PO SCH (08:00)
[2020-10-09] MEDS ORDERED: carvediloL 12.5 MG TAB PO SCH (08:00)
[2020-10-09 08:05] LABS: Cholesterol 119 mg/dL (<200); HDL Cholesterol 46 mg/dL (40-60); LDL Cholesterol,Calculated 53 mg/dL (0-99); Triglycerides 98 mg/dL (<150)
[2020-10-09 08:19] VITALS: RESP 16
[2020-10-09] MEDS ORDERED: DOBUTamine DRIP for NUC MED 500 MG in DEXTROSE/WATER 1 250ML.BAG IV ONE (08:33)
[2020-10-09] MEDS ORDERED: FOLIC ACID-VIT B COMPLEX-VIT C 1 CAP PO SCH (09:00)
[2020-10-09] MEDS ORDERED: CLOTRIMAZOLE 1% CREAM 15 GM TUBE TOPICAL SCH (09:00)
[2020-10-09] MEDS ORDERED: ASPIRIN 325 MG TAB PO SCH (09:00)
[2020-10-09] MEDS ORDERED: ASPIRIN 81 MG PO SCH (09:00)
--- NOTE | 2020-10-09 10:02 | P.CRDCN ---
History of Present Illness History of present illness: HISTORY OF PRESENTING ILLNESS This is a pleasant 50-year-old -Filipino male past medical history significant for end-stage renal disease on dialysis, diabetes mellitus, hypertension, fibromyalgia, chronic back pain and chronic anemia. He has followed in the office with Dr. Quijano in 2018. We have been asked to see in consultation for chest pain. He complains of a full sensation like a bubble in the mid-sternal region that has been there since the weekend. He is also having intense back pain that is acute on chronic. The chest pain has been ongoing and constant with no worsening with activity or exertion. He presented to dialysis yesterday and was sent to the emergency department before receiving his treatment for further evaluation of chest pain. On arrival to the emergency department he was given morphine and his chest pain has subsided. He continues to have ongoing back discomfort that is musculoskeletal in nature. He denies associated shortness of breath, dizziness or palpitations. DIAGNOSTICS EKG reveals sinus mechanism heart rate of 89 with first-degree AV block. Chest xray reveals basilar atelectasis. Laboratory reviewed, CBC unremarkable, d-dimer 0.51, cardiac enzymes negative 3, LDL 53, HDL 46, sodium 138, potassium 4.5, creatinine 9.6. Current cardiac medications include losartan 25 mg daily when necessary for hypertension before dialysis, Corag 6.25 mg by mouth daily on Wednesday, 25 mg twice a day on Wednesday and Wednesday and Lasix 80 mg twice a day. Most recent echocardiogram obtained in 2017 reveals preserved LV systolic function with ejection fraction 55-60%, mild MR and mild TR noted. REVIEW OF SYSTEMS At the time of my exam: CONSTITUTIONAL: Denies fever or chills. CARDIOVASCULAR: Denies chest pain, shortness of breath, orthopnea, PND or palpitations. RESPIRATORY: Denies cough. GASTROINTESTINAL: Denies abdominal pain, diarrhea, constipation, nausea or vomiting. MUSCULOSKELETAL: Complains of back pain NEUROLOGIC: Denies numbness, tingling or weakness. ENDOCRINE: Denies fatigue, weight change, polydipsia or polyurina. GENITOURINARY: Denies burning, hematuria or urgency with micturation. HEMATOLOGIC: Denies history of anemia or bleeding. PHYSICAL EXAMINATION Blood pressure 133/73 heart rate 80 afebrile and maintaining oxygen saturation on room air. CONSTITUTIONAL: No apparent distress. Morbidly obese. HEENT: Head is normocephalic. Pupils are equal, round. Sclerae anicteric. Mucous membranes of the mouth are moist. No JVD. No carotid bruit. CHEST EXAMINATION: Lungs are clear to auscultation. No chest wall tenderness is noted on palpation or with deep breathing. HEART EXAMINATION: Regular rate and rhythm. S1, S2 heard. No murmurs, gallops or rub. ABDOMEN: Soft, nontender. Positive bowel sounds. EXTREMITIES: 2+ peripheral pulses, no lower extremity edema and no calf tenderne ss. NEUROLOGIC EXAMINATION: Patient is awake, alert and oriented x3. ASSESSMENT Chest pain, atypical for angina End-stage renal disease on hemodialysis Chronic back pain Diabetes mellitus Hypertension Fibromyalgia PLAN Pain is atypical to be related to angina and an acute coronary event has been ruled out. Recommend proceeding with dobutamine stress echocardiogram to assess for stress- induced ischemia. Obtain 2-D echocardiogram and Doppler study to assess cardiac structure and function. If stress test is negative he may be discharged from a cardiac perspective. Follow-up with Dr. Quijano in the office. Thank you kindly for this consultation. Nurse Practitioner note has been reviewed, I agree with a documented findings and plan of care. Patient was seen and examined. Past Medical History Past Medical History: Diabetes Mellitus, Eye Disorder, Fibromyalgia, Hypertension, Pneumonia, Pulmonary Embolus (PE), Renal Disease, Sleep Apnea/CPAP/BIPAP Additional Past Medical History / Comment(s): IDDM type II, DKA, neuropathy bilateral feet, obesity, chronic renal failure stage IV secondary to DM, normocytic anemia, chronic lower back and shoulders pain, herniated lumbar disk, glaucoma R eye, carpal tunnel syndrome bilaterally, bronchitis, PAULA with CPAP. Left drop foot,fistula leeft upper arm,hemodialysis ,, History of Any Multi-Drug Resistant Organisms: MRSA Date of last positivie culture/infection: 11/21/12 MDRO Source:: lower back Past Surgical History: Orthopedic Surgery Additional Past Surgical History / Comment(s): Incision and drainage back and R groin r/t abcesses removed, bilateral eye surgery for retinal repair, R eye surgery for glaucoma-. fistula Past Anesthesia/Blood Transfusion Reactions: Postoperative Nausea & Vomiting (PONV) Additional Past Anesthesia/Blood Transfusion Reaction / Comment(s): pt stated has recieved blood transfusions-no known reaction. Smoking Status: Never smoker - Past Family History Father Family Medical History: Diabetes Mellitus, Hypertension Additional Family Medical History / Comment(s): Bladder cancer in father. Father at the age of 78 from bladder cancer complications. Mother Additional Family Medical History / Comment(s): Mother of brain aneurysm Medications and Allergies Home Medications Medication Instructions Recorded Confirmed Type Sevelamer [Renvela] 2,400 mg PO AC-TID 03/02/18 10/08/20 History Folic Acid-Vit B Complex-Vit C 1 cap PO DAILY 04/26/19 10/08/20 History [Nephrocaps] HYDROcodone/APAP 7.5-325MG [[place] 1 tab PO TID PRN 04/26/19 10/08/20 History 7.5-325] Insulin Detemir (Levemir) [Levemir] 60 unit SQ DAILY 12/22/19 10/08/20 History Lidocaine-Prilocaine Cream [Emla 1 applic TOPICAL TUTHSA PRN 12/22/19 10/08/20 History Cream 2.5%/2.5%] [place]-Lori 1 tab PO DAILY 12/22/19 10/08/20 History Carvedilol [Coreg] 25 mg PO SUMOWEFR@08,199906/27/20 10/08/20 History Furosemide [Lasix] 80 mg PO BID 10/08/20 10/08/20 History INSULIN ASPART (NovoLOG) [NovoLOG 10 unit SQ TID 10/08/20 10/08/20 History (formulary)] Ketoconazole 2% Cream [Nizoral 2%] 1 applic TOPICAL DAILY 10/08/20 10/08/20 History Losartan [Cozaar] 25 mg PO DAILY PRN 10/08/20 10/08/20 History Pantoprazole [Protonix] 40 mg PO DAILY 10/08/20 10/08/20 History carvediloL [Coreg] 6.25 mg PO TUTHSA@199910/08/20 10/08/20 History Allergies Allergy/AdvReac Type Severity Reaction Status Date / Time peanut Allergy Anaphylaxis Verified 10/08/20 12:25 Physical Exam Vitals: Vital Signs Temp Pulse Pulse Resp BP BP Pulse Ox 10/09/20 03:30 98.2 F 86 18 145/84 97 10/08/20 20:09 98.4 F 78 20 151/93 100 10/08/20 18:15 76 20 126/75 99 10/08/20 17:45 80 20 146/87 98 10/08/20 14:35 85 18 142/98 97 10/08/20 13:00 97.6 F 82 20 128/85 97 10/08/20 12:22 97.9 F 79 18 164/91 10/08/20 11:30 80 18 114/77 95 10/08/20 10:30 82 19 110/71 95 10/08/20 08:14 98.4 F 82 20 153/79 100 Intake and Output 10/08/20 10/09/20 10/09/20 22:59 06:59 14:59 Other: # Voids 2 Weight 153.18 kg Results 10/08/20 09:30 10/08/20 09:30 Cardiac Enzymes 10/08/20 10/08/20 10/08/20 Range/Units 09:30 09:30 12:48 AST 15 L (17-59) U/L Troponin I <0.012 <0.012 (0.000-0.034) ng/mL 10/08/20 Range/Units 15:51 AST (17-59) U/L Troponin I <0.012 (0.000-0.034) ng/mL Coagulation 10/08/20 Range/Units 09:30 PT 10.3 (9.0-12.0) sec APTT 27.4 (22.0-30.0) sec CBC 10/08/20 Range/Units 09:30 WBC 7.3 (3.8-10.6) k/uL RBC 4.32 (4.30-5.90) m/uL Hgb 13.0 (13.0-17.5) gm/dL Hct 38.8 L (39.0-53.0) % Plt Count 162 (150-450) k/uL Comprehensive Metabolic Panel 10/08/20 Range/Units 09:30 Sodium 138 (137-145) mmol/L Potassium 4.5 (3.5-5.1) mmol/L Chloride 100 (98-107) mmol/L Carbon Dioxide 27 (22-30) mmol/L BUN 76 H (9-20) mg/dL Creatinine 9.61 H* (0.66-1.25) mg/dL Glucose 268 H (74-99) mg/dL Calcium 8.1 L (8.4-10.2) mg/dL AST 15 L (17-59) U/L ALT 13 (4-49) U/L Alkaline Phosphatase 80 (38-126) U/L Total Protein 6.5 (6.3-8.2) g/dL Albumin 3.7 (3.5-5.0) g/dL Current Medications Generic Name Dose Route Start Last Admin Trade Name Freq PRN Reason Stop Dose Admin Hydrocodone Bitart/Acetaminophen 1 each 10/08/20 17:53 Hydrocodone/Apap 7.5-325mg 1 Each Tab PO TID PRN Pain Aspirin 325 mg 10/09/20 09:00 Aspirin 325 Mg Tab PO DAILY [facility] Carvedilol 6.25 mg 10/08/20 20:00 10/09/20 00:04 Carvedilol 6.25 Mg Tab PO 6.25 mg TUTHSA@1999 [facility] Administration Carvedilol 25 mg 10/09/20 08:00 Carvedilol 12.5 Mg Tab PO SUMOWEFR@ [facility] Clotrimazole 1 applic 10/09/20 09:00 Clotrimazole 1% Cream 15 Gm Tube TOPICAL DAILY [facility] Furosemide 80 mg 10/09/20 08:00 Furosemide 40 Mg Tab PO BID@0800,1600 [facility] Insulin Aspart 0 unit 10/08/20 21:00 10/09/20 06:36 Insulin Aspart (Novolog) 100 Unit/Ml Vial SQ Not Given ACHS [facility] Protocol Insulin Detemir 60 unit 10/08/20 18:30 10/08/20 19:00 Insulin Detemir (Levemir) 100 Unit/Ml Syr SQ 60 unit DAILY [facility] Administration Lidocaine/Prilocaine 1 applic 10/08/20 17:53 Lidocaine-Prilocaine 2.5-2.5% Cream 5 Gm Tube TOPICAL TUTHSA PRN PORT ACCESS FOR DIALYSIS Losartan Potassium 25 mg 10/08/20 17:53 Losartan 25 Mg Tab PO DAILY PRN HIGH BLOOD PRESSURE Morphine Sulfate 4 mg 10/08/20 11:26 10/08/20 12:25 Morphine Sulfate 4 Mg/Ml Syringe IV 4 mg Q5M PRN Administration Chest Pain Multivit/Ca Carb/B Cmplx/FA/Prenat 1 each 10/09/20 09:00 Folic Acid-Vit B Complex-Vit C 1 Cap PO DAILY [facility] Nitroglycerin 0.4 mg 10/08/20 11:26 Nitroglycerin Sl Tabs 0.4 Mg Tab SUBLINGUAL Q5M PRN Chest Pain Nitroglycerin 1 inch 10/08/20 12:00 10/09/20 06:46 Nitroglycerin Oint 1 Inch/Gm Packet TOPICAL Not Given Q6HR [facility] Non-Formulary Medication 1 tab 10/08/20 18:00 10/08/20 18:55 Jayesh-Lori PO Not Given DAILY [facility] Pantoprazole Sodium 40 mg 10/09/20 07:30 10/09/20 06:47 Pantoprazole 40 Mg Tablet PO 40 mg DAILY@0730 [facility] Administration Sevelamer Carbonate 2,400 mg 10/09/20 07:30 Sevelamer 800 Mg Tab PO AC-TID [facility] Sodium Chloride 10 ml 10/08/20 21:00 10/09/20 00:05 Sodium Chloride 0.9% Flush 10 Ml Syringe IV 10 ml BID [facility] Administration Intake and Output 10/08/20 10/09/20 10/09/20 22:59 06:59 14:59 Other: # Voids 2 Weight 153.18 kg 10/08/20 09:30 10/08/20 09:30
[2020-10-09 11:05] LABS: Glucose,Whole Blood 105 mg/dL (75-99)
[2020-10-09] MEDS: SEVELAMER 800 MG TAB PO SCH ×2 (11:19→15:37)
[2020-10-09] MEDS: [UNRECOGNIZED DRUG - OTHER] PO SCH (11:20)
--- NOTE | 2020-10-09 12:22 | P.STRESS ---
- Stress Test Note Stress Test Results/Findings: Exam Performed: dobutamine stress echo with con Exam Date: 10/09/20 Reason for Exam: CHEST PAIN Height: 6 ft 2 in Weight: 153.18 kg Protocol: DSE Stage: 4 Duration of Exercise: 12:00 Resting Heart Rate: 79 Resting Blood Pressure: 142/64 Maximum Achieved Heart Rate: 146 Maximum Achieved Blood Pressure: 220/94 85% PMHR: 145 100% PMHR: 171 METS: NA Technologist Comment: Stress Test Results/Findings: Baseline heart rate 79 beats a minute, Baseline blood pressure 142/64 mmHg baseline 12-lead ECG ECG shows sinus mechanism with nonspecific ST-T abnormalities Patient received dobutamine infusion per protocol Peak heart rate 146 beats a minute. Hypertensive response noted Blood pressure 220/94 mmHg Pacing 2-D echo showed normal LV size and systolic function without segmental wall motion amenities With dobutamine infusion there was a stepwise increment in overall LV contractility without wall pulmonary wall motion abnormalities After completion Carranza systolic function remain normal Please note is a technically difficult images and therefore contrast had to be used Impression No evidence for ischemia based on ECG or echocardiographic criteria Hypertensive response noted
--- NOTE | 2020-10-09 14:21 | P.DS ---
Providers Date of admission: 10/08/20 11:26 Expected date of discharge: 10/09/20 Attending physician: Deborah Garcia MD Consults: 10/08/20 11:26 Consult Physician Urgent Consulting Provider: Urbano Mendez Consult Reason/Comments: cp Do you want consulting provider notified?: Yes Consult Physician Urgent Consulting Provider: Michelle Medeiros Consult Reason/Comments: crf, missed dialysis today Do you want consulting provider notified?: Yes Primary care physician: Stated None Hospital Course: Discharge Diagnosis: Chest pain, acute coronary syndrome ruled out ESRD on HD M/W/F DM 2 HTN Fibromyalgia PAULA Chronic low back pain Hospital Course: Patient is a 50 yo CM with a hx of ESRD on HD, as well as type II on insulin, fibromyalgia, chronic pain on [place] who presented to the hospital with complaints of her chest and back pain. In the ER he underwent an extensive evaluation. His initial troponin ECG didn't show any evidence of ischemia. He was placed in chest pain observation. The remainder troponins were negative. He was seen by cardiology. He underwent an echocardiogram which showed a preserved ejection fraction. He underwent a dobutamine stress echo was negative for any signs of ischemia. His determined stable for discharge. He came to light that he had been seeing Dr. Ramos, and was awaiting for referral to Dr. Alaniz for chronic pain management. He has been on [place] since 2014 he was unable to get in with Dr. Alaniz and ran out of his [place]. He'll be given a prescription for 7 days of [place] therapy. He will follow-up with Dr. Alaniz. He was determined stable for discharge home. Of note patient initially had told the emergency department that he did not have a PCP which is why he was admitted to our service. We did not discover he was seeing Dr. Ramos until time of discharge. Patient seen and examined at bedside. No additional chest pain, no shortness of breath, pain controlled with medications. Frustrated that referral did not go through to Dr. Alaniz from Dr. Ramos office. Vital signs reviewed and stable. General: non toxic, no distress, appears at stated age Derm: warm, dry Head: atraumatic, normocephalic, symmetric Eyes: EOMI, no lid lag, anicteric sclera Mouth: no lip lesion, mucus membranes moist Cardiovascular: S1S2 reg, no murmur, positive posterior tibial pulse bilateral, Lungs: CTA bilateral, no rhonchi, no rales , no accessory muscle use Abdominal: soft, nontender to palpation, no guarding, no appreciable organomegaly Ext: no gross muscle atrophy, no edema, no contractures Neuro: CN II-XI grossly intact, no focal neuro deficits Psych: Alert, oriented, appropriate affect A total of 20 1minutes of time were spent preparing this complex discharge summary . Patient Condition at Discharge: Stable Plan - Discharge Summary Discharge Rx Participant: No New Discharge Prescriptions: New Aspirin 81 mg PO DAILY chew Continue Sevelamer [Renvela] 2,400 mg PO AC-TID Folic Acid-Vit B Complex-Vit C [Nephrocaps] 1 cap PO DAILY Insulin Detemir (Levemir) [Levemir] 60 unit SQ DAILY [place]-Lori 1 tab PO DAILY Lidocaine-Prilocaine Cream [Emla Cream 2.5%/2.5%] 1 applic TOPICAL TUTHSA PRN PRN Reason: PORT ACCESS FOR DIALYSIS Carvedilol [Coreg] 25 mg PO SUMOWEFR@0800,1999 Ketoconazole 2% Cream [Nizoral 2%] 1 applic TOPICAL DAILY Pantoprazole [Protonix] 40 mg PO DAILY Furosemide [Lasix] 80 mg PO BID carvediloL [Coreg] 6.25 mg PO TUTHSA@1999 INSULIN ASPART (NovoLOG) [NovoLOG (formulary)] 10 unit SQ TID Losartan [Cozaar] 25 mg PO DAILY PRN PRN Reason: HIGH BLOOD PRESSURE HYDROcodone/APAP 7.5-325MG [[place] 7.5-325] 1 tab PO TID PRN #21 tab PRN Reason: Pain Discharge Medication List Sevelamer [Renvela] 2,400 mg PO AC-TID 03/02/18 [History] Folic Acid-Vit B Complex-Vit C [Nephrocaps] 1 cap PO DAILY 04/26/19 [History] Insulin Detemir (Levemir) [Levemir] 60 unit SQ DAILY 12/22/19 [History] Lidocaine-Prilocaine Cream [Emla Cream 2.5%/2.5%] 1 applic TOPICAL TUTHSA PRN 12/22/19 [History] Jayesh-Lori 1 tab PO DAILY 12/22/19 [History] Carvedilol [Coreg] 25 mg PO SUMOWEFR@06/27/20 [History] Furosemide [Lasix] 80 mg PO BID 10/08/20 [History] INSULIN ASPART (NovoLOG) [NovoLOG (formulary)] 10 unit SQ TID 10/08/20 [History] Ketoconazole 2% Cream [Nizoral 2%] 1 applic TOPICAL DAILY 10/08/20 [History] Losartan [Cozaar] 25 mg PO DAILY PRN 10/08/20 [History] Pantoprazole [Protonix] 40 mg PO DAILY 10/08/20 [History] carvediloL [Coreg] 6.25 mg PO TUTHSA@199910/08/20 [History] Aspirin 81 mg PO DAILY chew 10/09/20 [Rx] HYDROcodone/APAP 7.5-325MG [[place] 7.5-325] 1 tab PO TID PRN #21 tab 10/09/20 [Rx] Follow up Appointment(s)/Referral(s): Elke Quijano MD [STAFF PHYSICIAN] - 2 Weeks None,Stated [Primary Care Provider] - 1-2 days Amado Alaniz MD [STAFF PHYSICIAN] - 1 Week Activity/Diet/Wound Care/Special Instructions: Activity: As tolerated Diet: heart healthy, carb consistent Discharge Disposition: HOME SELF-CARE
[2020-10-09 15:34] VITALS: BP 137/84; PULSE 84; TEMP 97.8
[2020-10-09] MEDS: INSULIN DETEMIR (LEVEMIR) 100 UNIT/ML SYR SQ SCH (15:37)
--- NOTE | 2020-10-10 10:00 | ECHOF ---
Referral Reason:chest pain MEASUREMENTS -------- HEIGHT: 182.9 cm WEIGHT: 152.4 kg BP: IVSd: 1.4 cm (0.6 - 1.1) LVIDd: 4.9 cm (3.9 - 5.3) LVPWd: 1.4 cm (0.6 - 1.1) IVSs: 1.9 cm LVIDs: 3.3 cm LVPWs: 1.9 cm LA Diam: 4.0 cm (2.7 - 3.8) RVIDd: 3.1 cm (< 3.3) EPSS: 0.3 cm MV E Umair: 0.55 m/s MV DecT: 235 ms MV A Umair: 0.52 m/s MV E/A Ratio: 1.05 MV EF SLOPE: 79.65 mm/s (70 - 150) MV EXCURSION: 25.34 mm (> 18.000) FINDINGS -------- Sinus rhythm. Morbid Obesity This was a techncally difficult study with suboptimal views, , Definity utilized for enhancement of images. The left ventricular size is normal. There is moderate concentric left ventricular hypertrophy. O verall left ventricular systolic function is low-normal with, an EF between 50 - 55 %. The right ventricle is normal in size. The left atrial size is normal. The right atrial size is normal. 1.5mg of Definity was utilized for enhancement of images The aortic valve was not well visualized. Mild mitral regurgitation is present. Mild tricuspid regurgitation present. Right ventricular systolic pressure is normal at < 35 mmHg. The pulmonic valve was not well visualized. The aortic root size is normal. There is no pericardial effusion. CONCLUSIONS -------- 1. Morbid Obesity 2. This was a techncally difficult study with suboptimal views, , Definity utilized for enhancement o f images. 3. The left ventricular size is normal. 4. There is moderate concentric left ventricular hypertrophy. 5. Overall left ventricular systolic function is low-normal with, an EF between 50 - 55 %. 6. The right ventricle is normal in size. 7. The left atrial size is normal. 8. The right atrial size is normal. 9. 1.5mg of Definity was utilized for enhancement of images 10. The aortic valve was not well visualized. 11. Mild mitral regurgitation is present. 12. Mild tricuspid regurgitation present. 13. The pulmonic valve was not well visualized. 14. The aortic root size is normal. 15. There is no pericardial effusion. APPRENTICE STYLIST: Tammi Pineda RDCS
== END 2020-10-09 16:24 | disposition home or self-care (01) ==
LOC: EC 08:11 → 3NCARDOBS 11:26 → 3SCARD 11:57 → 3NCARDOBS 22:11
PROVIDERS: ADMIT Internal Medicine; ATTEND Internal Medicine
DX: R07.89 Other chest pain (principal); I13.2 Hypertensive heart and chronic kidney disease with heart failure and with stage 5 chronic kidney disease, or end stage renal disease; I50.9 Heart failure, unspecified; E11.22 Type 2 diabetes mellitus with diabetic chronic kidney disease; E11.10 Type 2 diabetes mellitus with ketoacidosis without coma; N18.6 End stage renal disease; Z99.2 Dependence on renal dialysis; D63.1 Anemia in chronic kidney disease; E11.40 Type 2 diabetes mellitus with diabetic neuropathy, unspecified; E66.9 Obesity, unspecified; Z68.41 Body mass index [BMI] 40.0-44.9, adult; G56.03 Carpal tunnel syndrome, bilateral upper limbs; M79.7 Fibromyalgia; G47.33 Obstructive sleep apnea (adult) (pediatric); F41.9 Anxiety disorder, unspecified; Z99.89 Dependence on other enabling machines and devices; G89.29 Other chronic pain; M54.5 Low back pain; Z87.01 Personal history of pneumonia (recurrent); Z86.711 Personal history of pulmonary embolism; M21.372 Foot drop, left foot; Z86.14 Personal history of Methicillin resistant Staphylococcus aureus infection; Z83.3 Family history of diabetes mellitus; Z82.49 Family history of ischemic heart disease and other diseases of the circulatory system; Z80.52 Family history of malignant neoplasm of bladder; Z79.4 Long term (current) use of insulin; Z79.891 Long term (current) use of opiate analgesic; Z79.899 Other long term (current) drug therapy; Z91.010 Allergy to peanuts
CPT/HCPCS: 93005 ×2; 96374; 96375; 99285; 36415; 85379; 80061; 80053; 82150; 83690; 83735; 84484; 85025; 85610; 85730; 71046; G0378 ×3; G0257; C8929; C8930; J1250; J2270; J1170; Q9950; 90935; 93306; 93351

== ENCOUNTER 2020-12-25 01:35 | Observation (INO) | payer MEDICARE, OTHER ==
[2020-12-25] MEDS ORDERED: methylPREDNISolone SOD SUCCI 125 MG/2 ML VIAL IV STA (01:48)
[2020-12-25] MEDS ORDERED: FAMOTIDINE 20 MG/2 ML VIAL IV STA (01:49)
[2020-12-25] MEDS ORDERED: diphenhydrAMINE 50 MG/ML 1 ML VIAL IVP STA (01:49)
[2020-12-25 02:15] LABS: Basophils % (A) 0 %; Eosinophils # (A) 0.2 k/uL (0-0.7); Eosinophils % (A) 2 %; HCT 46.4 % (39.0-53.0); HGB 14.8 gm/dL (13.0-17.5); Lymphocytes # (A) 2.3 k/uL (1.0-4.8); Lymphocytes % (A) 31 %; MCH 29.2 pg (25.0-35.0); MCHC 31.9 g/dL (31.0-37.0); MCV 91.6 fL (80.0-100.0); Mean Platelet Volume 8.7; Monocytes # (A) 0.3 k/uL (0-1.0); Monocytes % (A) 4 %; Neutrophils # (A) 4.4 k/uL (1.3-7.7); Neutrophils % (A) 60 %; Platelet Count 197 k/uL (150-450); RBC 5.07 m/uL (4.30-5.90); RDW 13.9 % (11.5-15.5); WBC 7.4 k/uL (3.8-10.6)
--- NOTE | 2020-12-25 02:25 | XR ---
EXAM: XR Chest, 2 Views CLINICAL HISTORY: ITS.REASON XR Reason: throat lump TECHNIQUE: Frontal and lateral views of the chest. COMPARISON: X-ray dated 10/08/2020 FINDINGS: Lungs: Unremarkable. Pleural space: Unremarkable. Heart: Unremarkable. Mediastinum: Unremarkable. Bones/joints: Unremarkable. IMPRESSION: Normal chest x-rays.
[2020-12-25 02:26] LABS: Albumin 4.5 g/dL (3.5-5.0); Potassium 4.6 mmol/L (3.5-5.1); Total Bilirubin 0.6 mg/dL (0.2-1.3)
--- NOTE | 2020-12-25 02:26 | XR ---
EXAM: XR Soft Tissue Neck CLINICAL HISTORY: ITS.REASON XR Reason: foreign body sensation TECHNIQUE: Frontal and lateral views of the soft tissues of the neck. COMPARISON: No relevant prior studies available. FINDINGS: Airway: Unremarkable. No abnormal narrowing. Bones/joints: Unremarkable. Soft tissues: Unremarkable. No abnormal soft tissue prominence. Normal epiglottis. IMPRESSION: Normal neck x-rays.
--- NOTE | 2020-12-25 02:33 | CT ---
EXAM: CT Head Without Intravenous Contrast CLINICAL HISTORY: ITS.REASON CT Reason: headache TECHNIQUE: Axial computed tomography images of the head/brain without intravenous contrast. CTDI is 49.27 mGy and DLP is 1060.4 mGy-cm. This CT exam was performed using one or more of the following dose reduction techniques: automated exposure control, adjustment of the mA and/or kV according to patient size, and/or use of iterative reconstruction technique. COMPARISON: 01/07/2019 FINDINGS: Brain: No acute infarct, hemorrhage, mass or edema. Ventricles: Unremarkable. No ventriculomegaly. Bones/joints: Unremarkable. No acute calvarial fracture. Soft tissues: Unremarkable. Sinuses: Mild mucosal thickening of the paranasal sinuses. Mastoid air cells: Unremarkable as visualized. Orbits: Postural changes within the right globe. IMPRESSION: No acute findings in the head/brain.
[2020-12-25] MEDS ORDERED: INSULIN REGULAR 100 UNIT/ML VIAL SQ ONE (02:36)
--- NOTE | 2020-12-25 02:44 | ED ---
ENT HPI - General Chief complaint: ENT Stated complaint: Throat pain, headache Time Seen by Provider: 12/25/20 01:43 Source: patient Mode of arrival: ambulatory Limitations: no limitations - History of Present Illness Initial comments: 50yo male presenting for sore throat, upper chest discomfort/esophageal and headache beginning just prior to arrival. pt states that he was sitting in bed just prior to arrival and took one bite of a little eliud then felt like his food didnt go down all the way or his throat was swelling he has difficulty explaining the sensation states it was a lower neck/upper chest discfort/fullness sensation. he wasnt sure if he was having an allergic reaction, or if food wasnt going down or of this was somwthing else. Patient states he developed a headache shortly after too, dull ache. Gradually appearing after eating the little eliud. Pt states he does get headaches from time to time, denies this being the worst headache of his life. He states he wasnt worried about the headache just the throat sensation/neck discomfort. patient denies wheezing of abdominal pain nausea vomiting diarrhea chest pressure jaw or arm pain, shortness of breath fevers denies cough weakness/sensation deficits of extremities, vision loss or changes, speech changes, facial asymmetry, neck stiffness or photophobia. He states he did go to dialysis today. Patient states he didnt feel really well after dialysis stating that he felt tired which is not unusual. Patient denies additional complaints and upon arrival he is in no distress, does not appear toxic. Afebrile. - Related Data Home Medications Medication Instructions Recorded Confirmed Sevelamer [Renvela] 2,400 mg PO AC-TID 03/02/18 10/08/20 Folic Acid-Vit B Complex-Vit C 1 cap PO DAILY 04/26/19 10/08/20 [Nephrocaps] Insulin Detemir (Levemir) [Levemir] 60 unit SQ DAILY 12/22/19 10/08/20 Lidocaine-Prilocaine Cream [Emla 1 applic TOPICAL TUTHSA PRN 12/22/19 10/08/20 Cream 2.5%/2.5%] Jayesh-Lori 1 tab PO DAILY 12/22/19 10/08/20 Carvedilol [Coreg] 25 mg PO SUMOWEFR@08,199906/27/20 10/08/20 Furosemide [Lasix] 80 mg PO BID 10/08/20 10/08/20 INSULIN ASPART (NovoLOG) [NovoLOG 10 unit SQ TID 10/08/20 10/08/20 (formulary)] Ketoconazole 2% Cream [Nizoral 2%] 1 applic TOPICAL DAILY 10/08/20 10/08/20 Losartan [Cozaar] 25 mg PO DAILY PRN 10/08/20 10/08/20 Pantoprazole [Protonix] 40 mg PO DAILY 10/08/20 10/08/20 carvediloL [Coreg] 6.25 mg PO TUTHSA@199910/08/20 10/08/20 Previous Rx's Medication Instructions Recorded Aspirin 81 mg PO DAILY chew 10/09/20 HYDROcodone/APAP 7.5-325MG [Converse 1 tab PO TID PRN #21 tab 10/09/20 7.5-325] Allergies Allergy/AdvReac Type Severity Reaction Status Date / Time peanut Allergy Anaphylaxis Verified 12/25/20 01:42 Review of Systems ROS Statement: Those systems with pertinent positive or pertinent negative responses have been documented in the HPI. ROS Other: All systems not noted in ROS Statement are negative. Past Medical History Past Medical History: Diabetes Mellitus, Dialysis, Eye Disorder, Fibromyalgia, Hypertension, Pneumonia, Pulmonary Embolus (PE), Renal Disease, Sleep Apnea/CPAP/BIPAP Additional Past Medical History / Comment(s): IDDM type II, DKA, neuropathy bilateral feet, obesity, chronic renal failure stage IV secondary to DM, normoc ytic anemia, chronic lower back and shoulders pain, herniated lumbar disk, glaucoma R eye, carpal tunnel syndrome bilaterally, bronchitis, PAULA with CPAP. Left drop foot,fistula leeft upper arm,hemodialysis , History of Any Multi-Drug Resistant Organisms: MRSA Date of last positivie culture/infection: 11/21/12 MDRO Source:: lower back Past Surgical History: Orthopedic Surgery Additional Past Surgical History / Comment(s): Incision and drainage back and R groin r/t abcesses removed, bilateral eye surgery for retinal repair, R eye surgery for glaucoma-. fistula Past Anesthesia/Blood Transfusion Reactions: Postoperative Nausea & Vomiting (PONV) Additional Past Anesthesia/Blood Transfusion Reaction / Comment(s): pt stated has recieved blood transfusions-no known reaction. Past Psychological History: Anxiety Smoking Status: Never smoker Past Alcohol Use History: None Reported Past Drug Use History: None Reported - Past Family History Father Family Medical History: Diabetes Mellitus, Hypertension Additional Family Medical History / Comment(s): Bladder cancer in father. Father at the age of 78 from bladder cancer complications. Mother Additional Family Medical History / Comment(s): Mother of brain aneurysm General Exam - General Exam Comments Initial Comments: General: The patient is awake and alert, in no distress Eye: +3 mm pupils are equal, round and reactive to light, extra-ocular movements are intact. No nystagmus. There is normal conjunctiva bilaterally. No signs of icterus. Ears, nose, mouth and throat: There are moist mucous membranes and no oral lesions. No lip or tongue swelling. no tonsillar or oropharynx fullness, uvula midline, no redness. Neck: The neck is supple, there is no tenderness or JVD. Cardiovascular: There is a regular rate and rhythm. No murmur, rub or gallop is appreciated. Respiratory: Lungs are clear to auscultation, respirations are non-labored, breath sounds are equal. No wheezes, stridor, rales, or rhonchi. Gastrointestinal: Soft, non-distended, non-tender abdomen without masses or organomegaly noted. There is no rebound or guarding present. Musculoskeletal: Normal ROM, no tenderness. Strength 5/5. Sensation intact. Pulses equal bilaterally 2+. Neurological: A&O x 3. CN II-XII intact, memory intact to immediately, intermediate and skilled nursing recall. Able to follow simple verbal. Able to name a common object (cup). High quality, labial (pa) and lingual (la) speech. Low quality posterior pharynx/larynx (ga) voice sounds. Able to express general knowledge (days in a week). No hemineglect or inattention noted. Finger agnosia (-) and spatially oriented (identified L index finger touched R shoulder with L index finger). Light touch sensation present over the face, chest, abdomen, back, UE bilaterally, and LE bilaterally. Able to localize point during point localization b/l and extinction. No visible bulk atrophy, hypertrophy, fasciculations, or myoclonus of the UE or LE b/l. Full PROM in UE and LE b/l. Bilateral muscle strength 5/5 for the following muscles: deltoid, biceps, triceps, brachioradialis, wrist extensors/flexor, hip flexor, hip abductors/adductors, hamstrings, quadriceps, feet dorsiflexors/plantar flexorsGait is coordinated and even. (-) pronator drift. No nuchal rigidity. Skin: Skin is warm and dry and no rashes or lesions are noted. Psychiatric: Cooperative, appropriate mood & affect, normal judgment. Limitations: no limitations Course Vital Signs 12/25/20 12/25/20 12/25/20 01:39 02:41 03:30 Temperature 99.3 F Pulse Rate 112 H 98 89 Respiratory 20 20 20 Rate Blood Pressure 165/106 137/83 119/67 O2 Sat by Pulse 99 99 99 Oximetry 12/25/20 12/25/20 04:30 05:05 Temperature 98.8 F Pulse Rate 90 89 Respiratory 20 20 Rate Blood Pressure 115/69 117/69 O2 Sat by Pulse 98 98 Oximetry Medical Decision Making - Medical Decision Making Glucose elevated as well as creatinine, consistent with hx provided and PMH. Patient give SQ insulin/IV fluids. Patient passed PO challenge but still feels like throat is swollen and full. Pt was given allergy cocktail. No lip or tongue swelling, no wheezing, abdominal pain, hypotension, n/v/d. Patient state she has a discomfort in the anterior chest with swallowing. he states it feels "weird". Patient passed PO challenge, no regurgitation, coughing. Given post prandial chest/throat pain, pt risk factors. pt will be admitted to ensure no cardiac source of chest discomfort, although this if felt to be esophageal in nature. GI and cardiology on consultation. Dr Sandoval spoke with Anjelica Marsh who accepted admission. - Lab Data Result diagrams: 12/25/20 02:04 12/25/20 02:04 Lab Results 12/25/20 12/25/20 12/25/20 Range/Units 02:04 02:04 02:04 WBC 7.4 (3.8-10.6) k/uL RBC 5.07 (4.30-5.90) m/uL Hgb 14.8 (13.0-17.5) gm/dL Hct 46.4 (39.0-53.0) % MCV 91.6 (80.0-100.0) fL MCH 29.2 (25.0-35.0) pg MCHC 31.9 (31.0-37.0) g/dL RDW 13.9 (11.5-15.5) % Plt Count 197 (150-450) k/uL MPV 8.7 Neutrophils % 60 % Lymphocytes % 31 % Monocytes % 4 % Eosinophils % 2 % Basophils % 0 % Neutrophils # 4.4 (1.3-7.7) k/uL Lymphocytes # 2.3 (1.0-4.8) k/uL Monocytes # 0.3 (0-1.0) k/uL Eosinophils # 0.2 (0-0.7) k/uL Basophils # 0.0 (0-0.2) k/uL Sodium 135 L (137-145) mmol/L Potassium 4.6 (3.5-5.1) mmol/L Chloride 90 L (98-107) mmol/L Carbon Dioxide 31 H (22-30) mmol/L Anion Gap 14 mmol/L BUN 52 H (9-20) mg/dL Creatinine 8.09 H* (0.66-1.25) mg/dL Est GFR (CKD-EPI)AfAm 8 (>60 ml/min/1.73 sqM) Est GFR (CKD-EPI)NonAf 7 (>60 ml/min/1.73 sqM) Glucose 350 H (74-99) mg/dL Calcium 9.0 (8.4-10.2) mg/dL Total Bilirubin 0.6 (0.2-1.3) mg/dL AST 20 (17-59) U/L ALT 18 (4-49) U/L Alkaline Phosphatase 170 H (38-126) U/L Troponin I 0.014 (0.000-0.034) ng/mL Total Protein 8.0 (6.3-8.2) g/dL Albumin 4.5 (3.5-5.0) g/dL Acetone, Qual (Negative) 12/25/20 Range/Units 02:04 WBC (3.8-10.6) k/uL RBC (4.30-5.90) m/uL Hgb (13.0-17.5) gm/dL Hct (39.0-53.0) % MCV (80.0-100.0) fL MCH (25.0-35.0) pg MCHC (31.0-37.0) g/dL RDW (11.5-15.5) % Plt Count (150-450) k/uL MPV Neutrophils % % Lymphocytes % % Monocytes % % Eosinophils % % Basophils % % Neutrophils # (1.3-7.7) k/uL Lymphocytes # (1.0-4.8) k/uL Monocytes # (0-1.0) k/uL Eosinophils # (0-0.7) k/uL Basophils # (0-0.2) k/uL Sodium (137-145) mmol/L Potassium (3.5-5.1) mmol/L Chloride (98-107) mmol/L Carbon Dioxide (22-30) mmol/L Anion Gap mmol/L BUN (9-20) mg/dL Creatinine (0.66-1.25) mg/dL Est GFR (CKD-EPI)AfAm (>60 ml/min/1.73 sqM) Est GFR (CKD-EPI)NonAf (>60 ml/min/1.73 sqM) Glucose (74-99) mg/dL Calcium (8.4-10.2) mg/dL Total Bilirubin (0.2-1.3) mg/dL AST (17-59) U/L ALT (4-49) U/L Alkaline Phosphatase (38-126) U/L Troponin I (0.000-0.034) ng/mL Total Protein (6.3-8.2) g/dL Albumin (3.5-5.0) g/dL Acetone, Qual Negative (Negative) Disposition Clinical Impression: Sensation of foreign body in esophagus, Chest discomfort, Hx of headache Disposition: ADMITTED IP TO THIS [facility] Condition: Stable Is patient prescribed a controlled substance at d/c from ED?: No Time of Disposition: 03:51 Decision to Admit Reason: Admit from EC Decision Date: 12/25/20 Decision Time: 03:51
[2020-12-25] MEDS ORDERED: SODIUM CHLORIDE 0.9% 1,000 ML IV SCH (02:45)
[2020-12-25] MEDS ORDERED: MORPHINE SULFATE 2 MG/ML SYRINGE IVP STA (03:29)
[2020-12-25] MEDS ORDERED: ASPIRIN 81 MG PO STA (03:29)
[2020-12-25] MEDS ORDERED: NALOXONE 0.4 MG/ML 1 ML VIAL IV PRN (03:49)
[2020-12-25 05:30] LABS: Appearance,Urine Cloudy (Clear); Bacteria,Urine Rare /hpf; Bilirubin,Urine Negative (Negative); Blood,Urine Trace (Negative); Color,Urine Yellow; Glucose,Urine (UA) 3+ (Negative); Hyaline Casts,Urine 1 /lpf (0-2); Ketones,Urine Negative (Negative); Leukocyte Esterase,Urine Negative (Negative); Mucus,Urine Rare /hpf; Nitrite,Urine Negative (Negative); Protein,Urine 1+ (Negative); RBC,Urine 2 /hpf (0-5); Specific Gravity,Urine 1.014 (1.001-1.035); Squamous Epithelial Cell,Urine 2 /hpf (0-4); Urobilinogen,Urine <2.0 mg/dL (<2.0); WBC,Urine 3 /hpf (0-5)
[2020-12-25] MEDS ORDERED: LIDOCAINE-PRILOCAINE 2.5-2.5% CREAM 5 GM TUBE TOPICAL PRN (06:30)
[2020-12-25] MEDS ORDERED: HYDROcodone/APAP 7.5-325MG 1 EACH TAB PO PRN (06:30)
[2020-12-25] MEDS ORDERED: LOSARTAN 25 MG TAB PO PRN (06:30)
[2020-12-25 06:54] LABS: Glucose,Whole Blood 283 mg/dL (75-99)
[2020-12-25] MEDS ORDERED: PANTOPRAZOLE 40 MG TABLET PO SCH (07:30)
[2020-12-25] MEDS ORDERED: SEVELAMER 800 MG TAB PO SCH ×2 (07:30→09:30)
[2020-12-25] MEDS ORDERED: carvediloL 12.5 MG TAB PO SCH ×2 (08:00→09:30)
[2020-12-25] MEDS ORDERED: FOLIC ACID-VIT B COMPLEX-VIT C 1 CAP PO SCH ×2 (09:00)
[2020-12-25] MEDS ORDERED: INSULIN DETEMIR (LEVEMIR) 100 UNIT/ML SYR SQ SCH (09:00)
[2020-12-25] MEDS ORDERED: INSULIN ASPART (NovoLOG) 100 UNIT/ML VIAL SQ SCH (09:00)
[2020-12-25] MEDS ORDERED: CLOTRIMAZOLE 1% CREAM 15 GM TUBE TOPICAL SCH (09:00)
--- NOTE | 2020-12-25 09:36 | P.CRDCN ---
History of Present Illness Consult date: 12/25/20 History of present illness: CHIEF COMPLAINT: Chest pain HISTORY OF PRESENT ILLNESS: This is a 50-year-old male with a past medical history significant for diabetes mellitus, hypertension, and end-stage kidney disease on hemodialysis. Patient follows in the office with Dr. Quijano. We have been asked to see the patient in consultation for chest pain. And examined this morning at the bedside. Patient states yesterday he went to hemodialysis and completed his session without incident. He states he was at home and was eating a Little Jennifer cake and began to have a feeling like this throat was closing up. He states he was not short of breath at during this time. He drinks some liquids to see if he could get the sensation to pass. He reports that felt like the liquids were going down his throat slowly. He reports feeling a tightness in his throat but denies having any chest pain. Patient reports he had an outpatient appointment today to see Dr. Morse for some GI related issues. Patient was hospitalized in September 2020 for chest pain. He underwent a dobutamine stress test at that time which was negative for ischemia. Echocardiogram completed revealed ejection fraction 50-55%. DIAGNOSTICS: EKG reveals sinus mechanism. No acute changes when compared to old EKG. Chest xray negative for acute process Laboratory data: WBC 7.4. Hemoglobin 14.8. Platelet count 197. Sodium 135. Potassium 4.6. BUN 52. Creatinine 8.09. Current home cardiac medications include Coreg 25 mg twice a day, Lasix 80 mg Wednesday, and Cozaar 25 mg daily as needed REVIEW OF SYSTEMS: At the time of my exam: CONSTITUTIONAL: Denies fever or chills. HEENT: Denies blurred vision, vision changes, or eye pain. Denies hemoptysis CARDIOVASCULAR: Denies chest pain, orthopnea, PND or palpitations RESPIRATORY: No shortness of breath. GASTROINTESTINAL: Denies abdominal pain. Denies nausea or vomiting. HEMATOLOGIC: Denies bleeding disorders. GENITOURINARY: Denies any blood in urine. SKIN: Denies pruitis. Denies rash. PHYSICAL EXAM: VITAL SIGNS: Reviewed. GENERAL: Well-developed in no acute distress. HEENT: Head is normocephalic. Pupils are equal, round. Sclerae anicteric. Mucous membranes of the mouth are moist. Neck supple. No JVD or thyromegaly LUNGS: Respirations even and unlabored. Lungs essentially clear to auscultation bilaterally. HEART: Regular rate and rhythm. S1 and S2 heard. ABDOMEN: Soft. Nondistended. Nontender. EXTREMITIES: Normal range of motion. No clubbing or cyanosis. Peripheral pulses intact. No lower extremity edema NEUROLOGIC: Awake and alert. Oriented x 3. ASSESSMENT: Esophageal discomfort with reports feeling of "throat swelling" End stage renal disease on hemodialysis Hypertension Diabetes mellitus, type II Morbid obesity: BMI 40.4 PLAN: Patient denies any chest pain or cardiac complaints He recently underwent dobutamine stress test and echocardiogram in September 2020 Await GI evaluation No further workup from a cardiac perspective He may be discharged home today from a cardiac standpoint. Patient to follow up outpatient with Dr. Quijano Nurse practitioner note has been reviewed by physician. Signing provider agrees with the documented findings, assessment, and plan of care. Past Medical History Past Medical History: Diabetes Mellitus, Dialysis, Eye Disorder, Fibromyalgia, Hypertension, Pneumonia, Pulmonary Embolus (PE), Renal Disease, Sleep Apnea/CPAP/BIPAP Additional Past Medical History / Comment(s): IDDM type II, DKA, neuropathy bilateral feet, obesity, chronic renal failure stage IV secondary to DM, normocytic anemia, chronic lower back and shoulders pain, herniated lumbar disk, glaucoma R eye, carpal tunnel syndrome bilaterally, bronchitis, PAULA with CPAP. Left drop foot,fistula leeft upper arm,hemodialysis ,, History of Any Multi-Drug Resistant Organisms: MRSA Date of last positivie culture/infection: 11/21/12 MDRO Source:: lower back Past Surgical History: Orthopedic Surgery Additional Past Surgical History / Comment(s): Incision and drainage back and R groin r/t abcesses removed, bilateral eye surgery for retinal repair, R eye surgery for glaucoma-. fistula Past Anesthesia/Blood Transfusion Reactions: Postoperative Nausea & Vomiting (PONV) Additional Past Anesthesia/Blood Transfusion Reaction / Comment(s): pt stated has recieved blood transfusions-no known reaction. Past Psychological History: Anxiety Smoking Status: Never smoker Past Alcohol Use History: None Reported Past Drug Use History: None Reported - Past Family History Father Family Medical History: Diabetes Mellitus, Hypertension Additional Family Medical History / Comment(s): Bladder cancer in father. Father at the age of 78 from bladder cancer complications. Mother Additional Family Medical History / Comment(s): Mother of brain aneurysm Medications and Allergies Home Medications Medication Instructions Recorded Confirmed Type Sevelamer [Renvela] 3,200 mg PO AC-BID 03/02/18 12/25/20 History Folic Acid-Vit B Complex-Vit C 1 cap PO DAILY 04/26/19 12/25/20 History [Nephrocaps] Insulin Detemir (Levemir) [Levemir] 60 unit SQ DAILY 12/22/19 12/25/20 History Lidocaine-Prilocaine Cream [Emla 1 applic TOPICAL TUTHSA PRN 12/22/19 12/25/20 History Cream 2.5%/2.5%] Lincoln-Lori 1 tab PO DAILY 12/22/19 12/25/20 History Carvedilol [Coreg] 25 mg PO BID 06/27/20 12/25/20 History Furosemide [Lasix] 80 mg PO SUMOWEFR 10/08/20 12/25/20 History INSULIN ASPART (NovoLOG) [NovoLOG 10 unit SQ AC-TID 10/08/20 12/25/20 History (formulary)] Losartan [Cozaar] 25 mg PO DAILY PRN 10/08/20 12/25/20 History Pantoprazole [Protonix] 40 mg PO DAILY 10/08/20 12/25/20 History INSULIN ASPART (NovoLOG) [NovoLOG See Protocol SQ AC-TID 12/25/20 12/25/20 History (formulary)] Allergies Allergy/AdvReac Type Severity Reaction Status Date / Time peanut Allergy Anaphylaxis Verified 12/25/20 09:20 Physical Exam Vitals: Vital Signs Temp Pulse Pulse Resp BP BP Pulse Ox 12/25/20 07:39 97.8 F 88 20 147/90 95 12/25/20 05:34 98.0 F 91 134/85 94 L 12/25/20 05:05 98.8 F 89 20 117/69 98 12/25/20 04:30 90 20 115/69 98 12/25/20 03:30 89 20 119/67 99 12/25/20 02:41 98 20 137/83 99 12/25/20 01:39 99.3 F 112 H 20 165/106 99 Intake and Output 12/24/20 12/25/20 12/25/20 22:59 06:59 14:59 Other: # Voids 0 Weight 142.882 kg Results 12/25/20 02:04 12/25/20 02:04 Cardiac Enzymes 12/25/20 12/25/20 12/25/20 Range/Units 02:04 02:04 05:34 AST 20 (17-59) U/L Troponin I 0.014 0.012 (0.000-0.034) ng/mL CBC 12/25/20 Range/Units 02:04 WBC 7.4 (3.8-10.6) k/uL RBC 5.07 (4.30-5.90) m/uL Hgb 14.8 (13.0-17.5) gm/dL Hct 46.4 (39.0-53.0) % Plt Count 197 (150-450) k/uL Comprehensive Metabolic Panel 12/25/20 Range/Units 02:04 Sodium 135 L (137-145) mmol/L Potassium 4.6 (3.5-5.1) mmol/L Chloride 90 L (98-107) mmol/L Carbon Dioxide 31 H (22-30) mmol/L BUN 52 H (9-20) mg/dL Creatinine 8.09 H* (0.66-1.25) mg/dL Glucose 350 H (74-99) mg/dL Calcium 9.0 (8.4-10.2) mg/dL AST 20 (17-59) U/L ALT 18 (4-49) U/L Alkaline Phosphatase 170 H (38-126) U/L Total Protein 8.0 (6.3-8.2) g/dL Albumin 4.5 (3.5-5.0) g/dL Current Medications Generic Name Dose Route Start Last Admin Trade Name Freq PRN Reason Stop Dose Admin Hydrocodone Bitart/Acetaminophen 1 each 12/25/20 06:30 12/25/20 07:45 Hydrocodone/Apap 7.5-325mg 1 Each Tab PO 1 each TID PRN Administration Pain Aspirin 81 mg 12/26/20 09:00 Aspirin 81 Mg PO DAILY LORI Carvedilol 6.25 mg 12/26/20 20:00 Carvedilol 6.25 Mg Tab PO TUTHSA@2000 LORI Carvedilol 25 mg 12/25/20 08:00 Carvedilol 12.5 Mg Tab PO SUMOWEFR@0800,2000 LORI Clotrimazole 1 applic 12/25/20 09:00 12/25/20 08:37 Clotrimazole 1% Cream 15 Gm Tube TOPICAL Not Given DAILY LORI Furosemide 80 mg 12/25/20 09:00 Furosemide 80 Mg Tab PO BID@0900,1600 [facility] Sodium Chloride 1,000 mls @ 75 mls/hr 12/25/20 02:45 12/25/20 03:35 Saline 0.9% IV 75 mls/hr .[id number] LORI Administration Insulin Aspart 10 unit 12/25/20 09:00 Insulin Aspart (Novolog) 100 Unit/Ml Vial SQ TID LORI Insulin Detemir 60 unit 12/25/20 09:00 12/25/20 08:38 Insulin Detemir (Levemir) 100 Unit/Ml Syr SQ 60 unit DAILY LORI Administration Lidocaine/Prilocaine 1 applic 12/25/20 06:30 Lidocaine-Prilocaine 2.5-2.5% Cream 5 Gm Tube TOPICAL TUTHSA PRN PORT ACCESS FOR DIALYSIS Losartan Potassium 25 mg 12/25/20 06:30 Losartan 25 Mg Tab PO DAILY PRN HIGH BLOOD PRESSURE Multivit/Ca Carb/B Cmplx/FA/Prenat 1 each 12/25/20 09:00 Folic Acid-Vit B Complex-Vit C 1 Cap PO DAILY LORI Naloxone HCl 0.2 mg 12/25/20 03:49 Naloxone 0.4 Mg/Ml 1 Ml Vial IV Q2M PRN Opioid Reversal Pantoprazole Sodium 40 mg 12/25/20 07:30 Pantoprazole 40 Mg Tablet PO DAILY@0730 [facility] Sevelamer Carbonate 2,400 mg 12/25/20 07:30 Sevelamer 800 Mg Tab PO AC-TID LORI Intake and Output 12/24/20 12/25/20 12/25/20 22:59 06:59 14:59 Other: # Voids 0 Weight 142.882 kg 12/25/20 02:04 12/25/20 02:04
[2020-12-25] MEDS: FUROSEMIDE 80 MG TAB PO SCH ×2 (10:17→17:34)
[2020-12-25 11:39] LABS: Glucose,Whole Blood 361 mg/dL (75-99)
[2020-12-25] MEDS: INSULIN ASPART (NovoLOG) 100 UNIT/ML VIAL SQ SCH ×2 (11:57→17:42)
[2020-12-25] MEDS ORDERED: INSULIN ASPART (NovoLOG) 100 UNIT/ML VIAL SQ ONE (13:30)
[2020-12-25 13:46] VITALS: BMI 40.4
--- NOTE | 2020-12-25 14:03 | P.HPIM ---
History of Present Illness H&P Date: 12/25/20 Chief Complaint: Chest pain History and Physical and Discharge Summary This is a pleasant 50-year-old gentleman with past medical history of end-stage renal disease on dialysis, diabetes mellitus, hypertension, fibromyalgia, chronic back pain and chronic anemia, presented to the ER with complaints of esophageal/neck-throat /upper chest/ discomfort after consuming a " little eliud". Later discovered of ingredients contain nuts and patient is ALLERGIC to peanuts. Denies coughing or regurgitation. Reports sensation of "food stuck in throat"/swollen accompanied by a dull headache. Headache, resolved. Denies nausea vomiting or diarrhea. Denies abdominal pain. Denies lightheadedness, dizziness or focal deficits. Denies fevers, congestion. Event occurred after patient completed hemodialysis on Wednesday. BUN 52, creatinine 8.09. Afebrile, normal WBC. Hematology unremarkable. Sodium 135, potassium 4.6, blood sugars in the 300s. Acetone negative. UA negative .T bili LFTs within normal limits with the exception of alk phos 170. Received subcu insulin, IV fluids, anaphylaxis cocktail. ER reports patient passed po challenge with no coughing, choking. Patient also complaining of chronic shoulder and back pain. Cardiology and GI consulted. Vital signs stable, maintaining O2 sats in the 90s on room air, respiratory rate normal. Review of Systems ROS Statement: Those systems with pertinent positive or pertinent negative responses have been documented in the HPI. ROS Other: All systems not noted in ROS Statement are negative. Past Medical History Past Medical History: Diabetes Mellitus, Dialysis, Eye Disorder, Fibromyalgia, Hypertension, Pneumonia, Pulmonary Embolus (PE), Renal Disease, Sleep Apnea/CPAP/BIPAP Additional Past Medical History / Comment(s): IDDM type II, DKA, neuropathy bilateral feet, obesity, chronic renal failure stage IV secondary to DM, normocytic anemia, chronic lower back and shoulders pain, herniated lumbar disk, glaucoma R eye, carpal tunnel syndrome bilaterally, bronchitis, PAULA with CPAP. Left drop foot,fistula leeft upper arm,hemodialysis ,, History of Any Multi-Drug Resistant Organisms: MRSA Date of last positivie culture/infection: 11/21/12 MDRO Source:: lower back Past Surgical History: Orthopedic Surgery Additional Past Surgical History / Comment(s): Incision and drainage back and R groin r/t abcesses removed, bilateral eye surgery for retinal repair, R eye surgery for glaucoma-. fistula Past Anesthesia/Blood Transfusion Reactions: Postoperative Nausea & Vomiting (PONV) Additional Past Anesthesia/Blood Transfusion Reaction / Comment(s): pt stated has recieved blood transfusions-no known reaction. Past Psychological History: Anxiety Smoking Status: Never smoker Past Alcohol Use History: None Reported Past Drug Use History: None Reported - Past Family History Father Family Medical History: Diabetes Mellitus, Hypertension Additional Family Medical History / Comment(s): Bladder cancer in father. Father at the age of 78 from bladder cancer complications. Mother Additional Family Medical History / Comment(s): Mother of brain aneurysm Medications and Allergies Home Medications Medication Instructions Recorded Confirmed Type Sevelamer [Renvela] 3,200 mg PO AC-BID 03/02/18 12/25/20 History Folic Acid-Vit B Complex-Vit C 1 cap PO DAILY 04/26/19 12/25/20 History [Nephrocaps] Insulin Detemir (Levemir) [Levemir] 60 unit SQ DAILY 12/22/19 12/25/20 History Lidocaine-Prilocaine Cream [Emla 1 applic TOPICAL TUTHSA PRN 12/22/19 12/25/20 History Cream 2.5%/2.5%] [place]-Lori 1 tab PO DAILY 12/22/19 12/25/20 History Carvedilol [Coreg] 25 mg PO BID 06/27/20 12/25/20 History Furosemide [Lasix] 80 mg PO SUMOWEFR 10/08/20 12/25/20 History INSULIN ASPART (NovoLOG) [NovoLOG 10 unit SQ AC-TID 10/08/20 12/25/20 History (formulary)] Losartan [Cozaar] 25 mg PO DAILY PRN 10/08/20 12/25/20 History Pantoprazole [Protonix] 40 mg PO DAILY 10/08/20 12/25/20 History Clotrimazole Cream [Lotrimin Cream] 1 applic TOPICAL DAILY applic 12/25/20 Rx INSULIN ASPART (NovoLOG) [NovoLOG See Protocol SQ AC-TID 12/25/20 12/25/20 History (formulary)] Allergies Allergy/AdvReac Type Severity Reaction Status Date / Time peanut Allergy Anaphylaxis Verified 12/25/20 09:20 Physical Exam Vitals: Vital Signs Temp Pulse Pulse Resp BP BP Pulse Ox 12/25/20 07:39 97.8 F 88 20 147/90 95 12/25/20 05:34 98.0 F 91 134/85 94 L 12/25/20 05:05 98.8 F 89 20 117/69 98 12/25/20 04:30 90 20 115/69 98 12/25/20 03:30 89 20 119/67 99 12/25/20 02:41 98 20 137/83 99 12/25/20 01:39 99.3 F 112 H 20 165/106 99 Intake and Output 12/24/20 12/25/20 12/25/20 22:59 06:59 14:59 Other: # Voids 0 Weight 142.882 kg PHYSICAL EXAM: VITAL SIGNS: As above GENERAL: Sitting up in bed, no acute distress HEENT: No scleral icterus.Conjunctivae normal. Trachea midline, no lip or tongue edema. NECK: No JVD. No thyroid enlargement. No LNs CARDIOVASCULAR: S1, S2 regular.. No murmur RESPIRATION: Unlabored respiratory effort .Breath sounds diminished in the bases. No rhonchi or crackles. No bronchial breathing. No wheezing. ABDOMEN: Soft, nontender . No guarding. no masses palpable. No ascites, No hepatosplenomegaly.Bowel sounds heard. LEGS: No edema. no swelling. No calf Tenderness PSYCHIATRY: Alert and oriented X3, mood and affect normal. NERVOUS SYSTEM: Cranial N 2-12 grossly normal. No focal deficits. Strength and sensation grossly intact. Skin: Warm and dry, no rash Results CBC & Chem 7: 12/25/20 02:04 12/25/20 02:04 Labs: Abnormal Lab Results - Last 24 Hours (Table) 12/25/20 12/25/20 12/25/20 Range/Units 02:04 05:19 06:53 Sodium 135 L (137-145) mmol/L Chloride 90 L (98-107) mmol/L Carbon Dioxide 31 H (22-30) mmol/L BUN 52 H (9-20) mg/dL Creatinine 8.09 H* (0.66-1.25) mg/dL Glucose 350 H (74-99) mg/dL POC Glucose (mg/dL) 283 H (75-99) mg/dL Alkaline Phosphatase 170 H (38-126) U/L Urine Protein 1+ H (Negative) Urine Glucose (UA) 3+ H (Negative) Urine Blood Trace H (Negative) Urine Bacteria Rare H (None) /hpf Urine Mucus Rare H (None) /hpf Thrombosis Risk Factor Assmnt - Choose All That Apply Each Factor Represents 1 point: Age 41-60 years, Obesity (BMI >25) Thrombosis Risk Factor Assessment Total Risk Factor Score: 2 Thrombosis Risk Factor Assessment Level: Low Risk Assessment and Plan Assessment: Esophageal discomfort, possibly food bolus induced, possible anaphylaxis End-stage renal disease on hemodialysis. Last hemodialysis Wednesday. Gastroesophageal reflux disease, further follow-up outpatient with GI Chronic lower back and shoulder pain Diabetes mellitus Type II, hyperglycemic on admission, acetone negative. Diabetic peripheral neuropathy Hypertension Fibromyalgia Obstructive sleep apnea on CPAP Morbid obesity, BMI 40.4 Plan: Continue on current medication regime ,monitoring and symptomatic treatment. GI and cardiology consult in place, recommendations pending. Home meds have been reviewed and resumed accordingly. Cleared by cardiology for discharge. Diet has been advanced to full liquids, and if patient tolerates, will be cleared by GI with further follow-up recommended outpatient. Consistent carb diet reinforced .Patient will be discharged home later today in a stable condition with guarded prognosis. The impression and plan of care has been dictated as directed. : I performed a history and examination of this patient, discussed the same with the dictator. I agree with the dictator's note ,documented as a scribe. Any additional findings or plans will be noted.
[2020-12-25 14:09] VITALS: BP 125/76; PULSE 83; RESP 16; TEMP 97.7
--- NOTE | 2020-12-25 16:11 | CONS ---
CONSULTATION REASON FOR CONSULT: End-stage renal disease. HISTORY OF PRESENT ILLNESS: Patient is a 50-year-old male with history of end-stage renal disease, on hemodialysis on a Wednesday, , Wednesday schedule. Patient was admitted to the hospital with complaints of chest discomfort and choking sensation after eating a piece of store bought cake. The patient states that he has had it previously but did not have such a reaction before. He did receive Benadryl and Solu-Medrol. Overall he states he is feeling better. The patient is scheduled for a barium swallow later on today. Soft tissue x-ray did not reveal any foreign body. Patient denies fever, chills, nausea, vomiting, or abdominal pain. PAST MEDICAL HISTORY: End-stage renal disease, anemia of chronic disease, CKD mineral bone disorder, type 2 diabetes, fibromyalgia, obstructive sleep apnea, neuropathy, chronic back pain, glaucoma, carpal tunnel syndrome bilaterally. PAST SURGICAL HISTORY: Left upper arm AV fistula, surgery for glaucoma and retinal repair surgery. SOCIAL HISTORY: Negative for smoking, drug abuse or alcohol abuse. REVIEW OF SYSTEMS: As per HPI. Other systems negative. MEDICATION: Medications included Renvela, Nephrocaps, insulin, Coreg, Lasix, Cozaar, Protonix. ALLERGIES: Allergies to PEANUTS, which cause anaphylaxis. PHYSICAL EXAMINATION: Patient is comfortable, awake, not in any distress, alert, oriented x3. Blood pressure is 147/90, heart rate of 88 per minute. He is afebrile. EXAMINATION OF THE HEART: S1, S2. EXAMINATION OF THE LUNGS: Bilateral breath sounds are heard. Abdomen is soft, nontender. Examination of lower extremities shows no evidence of edema. ENGINE MECHANIC exam grossly intact. LABS: Labs show sodium 135, potassium 4.6, CO2 is 31, creatinine 8.0, hemoglobin 14.8. ASSESSMENT: 1. End-stage renal disease, on hemodialysis on a Wednesday, , Wednesday schedule. 2. Chest discomfort, choking sensation most likely related to allergic reaction to what patient has eaten currently improved with steroids and Benadryl. 3. Chronic kidney disease mineral bone disorder. 4. Hypertension, controlled. PLAN: Hemodialysis in a.m. if the patient is not discharged. Continue phosphate binders. Thank you for this consultation. MMODL / IJN: [id number] /
[2020-12-25 16:56] LABS: Glucose,Whole Blood 283 mg/dL (75-99)
--- NOTE | 2020-12-25 17:01 | P.DS ---
Providers Date of admission: 12/25/20 04:26 Expected date of discharge: 12/25/20 Attending physician: Neo Alexandre Consults: 12/25/20 03:49 Consult Physician Routine Consulting Provider: Urbano Mendez Consult Reason/Comments: chest pain r/o Do you want consulting provider notified?: Yes Consult Physician Routine Consulting Provider: Param Cruz Consult Reason/Comments: esophageal spasms/sensation food stuck- tolerating oral intake. Do you want consulting provider notified?: Yes 12/25/20 08:13 Consult Physician Routine Consulting Provider: Michelle Medeiros Consult Reason/Comments: HD, renal failure Do you want consulting provider notified?: Yes Primary care physician: Blas Ramos Patient Condition at Discharge: Stable Plan - Discharge Summary Discharge Rx Participant: No New Discharge Prescriptions: New Clotrimazole Cream [Lotrimin Cream] 1 applic TOPICAL DAILY applic Continue Sevelamer [Renvela] 3,200 mg PO AC-BID Folic Acid-Vit B Complex-Vit C [Nephrocaps] 1 cap PO DAILY Insulin Detemir (Levemir) [Levemir] 60 unit SQ DAILY [place]-Lori 1 tab PO DAILY Lidocaine-Prilocaine Cream [Emla Cream 2.5%/2.5%] 1 applic TOPICAL TUTHSA PRN PRN Reason: PORT ACCESS FOR DIALYSIS Carvedilol [Coreg] 25 mg PO BID Pantoprazole [Protonix] 40 mg PO DAILY Furosemide [Lasix] 80 mg PO SUMOWEFR INSULIN ASPART (NovoLOG) [NovoLOG (formulary)] 10 unit SQ AC-TID Losartan [Cozaar] 25 mg PO DAILY PRN PRN Reason: HIGH BLOOD PRESSURE INSULIN ASPART (NovoLOG) [NovoLOG (formulary)] See Protocol SQ AC-TID Discharge Medication List Sevelamer [Renvela] 3,200 mg PO AC-BID 03/02/18 [History] Folic Acid-Vit B Complex-Vit C [Nephrocaps] 1 cap PO DAILY 04/26/19 [History] Insulin Detemir (Levemir) [Levemir] 60 unit SQ DAILY 12/22/19 [History] Lidocaine-Prilocaine Cream [Emla Cream 2.5%/2.5%] 1 applic TOPICAL TUTHSA PRN [History] [place]-Lori 1 tab PO DAILY 12/22/19 [History] Carvedilol [Coreg] 25 mg PO BID 06/27/20 [History] Furosemide [Lasix] 80 mg PO SUMOWEFR 10/08/20 [History] INSULIN ASPART (NovoLOG) [NovoLOG (formulary)] 10 unit SQ AC-TID 10/08/20 [History] Losartan [Cozaar] 25 mg PO DAILY PRN 10/08/20 [History] Pantoprazole [Protonix] 40 mg PO DAILY 10/08/20 [History] Clotrimazole Cream [Lotrimin Cream] 1 applic TOPICAL DAILY applic 12/25/20 [Rx] INSULIN ASPART (NovoLOG) [NovoLOG (formulary)] See Protocol SQ AC-TID 12/25/20 [History] Follow up Appointment(s)/Referral(s): Elke Quijano MD [STAFF PHYSICIAN] - 01/01/21 10:45 am (Crystal MILLING MACHINE 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 Alexandre evaluation/clearance.Hemodialysis as per nephrology. Confirm follow-up with GI prior to discharge. Consistent carb diet
--- NOTE | 2020-12-25 17:04 | P.DS ---
Providers Date of admission: 12/25/20 04:26 Expected date of discharge: 12/25/20 Attending physician: Neo Alexandre Consults: 12/25/20 03:49 Consult Physician Routine Consulting Provider: Urbano Mendez Consult Reason/Comments: chest pain r/o Do you want consulting provider notified?: Yes Consult Physician Routine Consulting Provider: Param Cruz Consult Reason/Comments: esophageal spasms/sensation food stuck- tolerating oral intake. Do you want consulting provider notified?: Yes 12/25/20 08:13 Consult Physician Routine Consulting Provider: Michelle Medeiros Consult Reason/Comments: HD, renal failure Do you want consulting provider notified?: Yes Primary care physician: Blas Ramos - Rafael Diagnosis(es) (1) Chest discomfort Current Visit: Yes Status: Acute (2) Sensation of foreign body in esophagus Current Visit: Yes Status: Acute (3) Acute renal failure Current Visit: No Status: Acute (4) Chest pain Current Visit: No Status: Acute (5) Cough Current Visit: No Status: Acute (6) Diabetes Current Visit: No Status: Acute (7) Dialysis patient Current Visit: No Status: Acute (8) End stage renal disease Current Visit: No Status: Acute (9) Hyperglycemia Current Visit: No Status: Acute (10) Hypertension Current Visit: No Status: Acute Patient Condition at Discharge: Stable Plan - Discharge Summary Discharge Rx Participant: No New Discharge Prescriptions: New Clotrimazole Cream [Lotrimin Cream] 1 applic TOPICAL DAILY applic Continue Sevelamer [Renvela] 3,200 mg PO AC-BID Folic Acid-Vit B Complex-Vit C [Nephrocaps] 1 cap PO DAILY Insulin Detemir (Levemir) [Levemir] 60 unit SQ DAILY [place]-Lori 1 tab PO DAILY Lidocaine-Prilocaine Cream [Emla Cream 2.5%/2.5%] 1 applic TOPICAL TUTHSA PRN PRN Reason: PORT ACCESS FOR DIALYSIS Carvedilol [Coreg] 25 mg PO BID Pantoprazole [Protonix] 40 mg PO DAILY Furosemide [Lasix] 80 mg PO SUMOWEFR INSULIN ASPART (NovoLOG) [NovoLOG (formulary)] 10 unit SQ AC-TID Losartan [Cozaar] 25 mg PO DAILY PRN PRN Reason: HIGH BLOOD PRESSURE INSULIN ASPART (NovoLOG) [NovoLOG (formulary)] See Protocol SQ AC-TID Discharge Medication List Sevelamer [Renvela] 3,200 mg PO AC-BID 03/02/18 [History] Folic Acid-Vit B Complex-Vit C [Nephrocaps] 1 cap PO DAILY 04/26/19 [History] Insulin Detemir (Levemir) [Levemir] 60 unit SQ DAILY 12/22/19 [History] Lidocaine-Prilocaine Cream [Emla Cream 2.5%/2.5%] 1 applic TOPICAL TUTHSA PRN 12/22/19 [History] [place]-Lori 1 tab PO DAILY 12/22/19 [History] Carvedilol [Coreg] 25 mg PO BID 06/27/20 [History] Furosemide [Lasix] 80 mg PO SUMOWEFR 10/08/20 [History] INSULIN ASPART (NovoLOG) [NovoLOG (formulary)] 10 unit SQ AC-TID 10/08/20 [History] Losartan [Cozaar] 25 mg PO DAILY PRN 10/08/20 [History] Pantoprazole [Protonix] 40 mg PO DAILY 10/08/20 [History] Clotrimazole Cream [Lotrimin Cream] 1 applic TOPICAL DAILY applic 12/25/20 [Rx] INSULIN ASPART (NovoLOG) [NovoLOG (formulary)] See Protocol SQ AC-TID 12/25/20 [History] Follow up Appointment(s)/Referral(s): Elke Quijano MD [STAFF PHYSICIAN] - 01/01/21 10:45 am (Crystal SONOGRAPHER) Brissa Morse MD [STAFF PHYSICIAN] - 01/08/21 10:00 am Blas Ramos MD [Primary Care Provider] - 12/27/20 9:00 am Patient Instructions/Handouts: Chest Pain (DC), Basic Carbohydrate Counting (DC) Activity/Diet/Wound Care/Special Instructions: Pending Dr. Alexandre evaluation/clearance.Hemodialysis as per nephrology. Confirm follow-up with GI prior to discharge. Consistent carb diet Discharge Disposition: HOME SELF-CARE
--- NOTE | 2020-12-25 22:55 | P.CONS ---
History of Present Illness - Reason for Consult Consult date: 12/25/20 Dysphagia Requesting physician: Neo Alexandre Jr - Chief Complaint Sore throat, headache, upper chest discomfort, difficulty swallowing - History of Present Illness 50-year-old male with multiple medical comorbidities including diabetes mellitus, chronic kidney disease/end stage renal disease on hemodialysis, PAULA, hypertension and GERD who presented to the hospital for a constellation of symptoms including sore throat, headache, upper chest discomfort and difficulty swallowing. Patient reports taking a bite of a little Jenniefr after which she felt like his throat was swollen and "weird". Subsequently he developed a headache and had a lot of pain in the shoulders, hip and back and presented for further evaluation. The patient underwent x-ray soft tissue of the back which was normal. Laboratory evaluation significant for WBC 7.4, hemoglobin 14.8, platelet count 297,000, total bilirubin 0.6, alkaline phosphatase 170, AST 20 and ALT 18. He is a known history of reflux and is on omeprazole therapy. He still reports some breakthrough symptoms even on the medication. He is scheduled to follow up with GI in the outpatient setting. Review of Systems REVIEW OF SYSTEMS: CONSTITUTIONAL: Denies any fevers, chills, weight change or fatigue. CARDIOVASCULAR: Denies any chest pain, palpitations high or low blood pressures RESPIRATORY: Denies any shortness of breath, hemoptysis or cough. GENITOURINARY: No history of end-stage renal disease on hemodialysis. MUSCULOSKELETAL: No weakness reported. SKIN: Denies any new rashes or lesions, jaundice or pallor. PSYCHIATRIC: Denies any depression or anxiety. NEUROLOGY: Denies any new focal deficits, headache on presentation is resolved. EARS/NOSE/THROAT: No recent hearing change, congestion, nasal discharge or sore throat. EYES: No pain in eyes, discharge or change in vision. GASTROINTESTINAL: As per HPI. Past Medical History Past Medical History: Diabetes Mellitus, Dialysis, Eye Disorder, Fibromyalgia, Hypertension, Pneumonia, Pulmonary Embolus (PE), Renal Disease, Sleep Apnea/CPAP/BIPAP Additional Past Medical History / Comment(s): IDDM type II, DKA, neuropathy bilateral feet, obesity, chronic renal failure stage IV secondary to DM, normocytic anemia, chronic lower back and shoulders pain, herniated lumbar disk, glaucoma R eye, carpal tunnel syndrome bilaterally, bronchitis, PAULA with CPAP. Left drop foot,fistula leeft upper arm,hemodialysis ,, SA History of Any Multi-Drug Resistant Organisms: MRSA Year Discovered:: 11/21/12 MDRO Source:: lower back Past Surgical History: Orthopedic Surgery Additional Past Surgical History / Comment(s): Incision and drainage back and R groin r/t abcesses removed, bilateral eye surgery for retinal repair, R eye surgery for glaucoma-. fistula Past Anesthesia/Blood Transfusion Reactions: Postoperative Nausea & Vomiting (PONV) Additional Past Anesthesia/Blood Transfusion Reaction / Comm: pt stated has recieved blood transfusions-no known reaction. Past Psychological History: Anxiety Smoking Status: Never smoker Past Alcohol Use History: None Reported Past Drug Use History: None Reported - Past Family History Father Family Medical History: Diabetes Mellitus, Hypertension Additional Family Medical History / Comment(s): Bladder cancer in father. Father at the age of 78 from bladder cancer complications. Mother Additional Family Medical History / Comment(s): Mother of brain aneurysm Medications and Allergies Home Medications Medication Instructions Recorded Confirmed Type Sevelamer [Renvela] 3,200 mg PO AC-BID 03/02/18 12/25/20 History Folic Acid-Vit B Complex-Vit C 1 cap PO DAILY 04/26/19 12/25/20 History [Nephrocaps] Insulin Detemir (Levemir) [Levemir] 60 unit SQ DAILY 12/22/19 12/25/20 History Lidocaine-Prilocaine Cream [Emla 1 applic TOPICAL TUTHSA PRN 12/22/19 12/25/20 History Cream 2.5%/2.5%] [place]-Lori 1 tab PO DAILY 12/22/19 12/25/20 History Carvedilol [Coreg] 25 mg PO BID 06/27/20 12/25/20 History Furosemide [Lasix] 80 mg PO SUMOWEFR 10/08/20 12/25/20 History INSULIN ASPART (NovoLOG) [NovoLOG 10 unit SQ AC-TID 10/08/20 12/25/20 History (formulary)] Losartan [Cozaar] 25 mg PO DAILY PRN 10/08/20 12/25/20 History Pantoprazole [Protonix] 40 mg PO DAILY 10/08/20 12/25/20 History Clotrimazole Cream [Lotrimin Cream] 1 applic TOPICAL DAILY applic 12/25/20 Rx INSULIN ASPART (NovoLOG) [NovoLOG See Protocol SQ AC-TID 12/25/20 12/25/20 History (formulary)] Allergies Allergy/AdvReac Type Severity Reaction Status Date / Time peanut Allergy Anaphylaxis Verified 12/25/20 09:20 Physical Exam Vitals: Vital Signs Temp Pulse Pulse Resp BP BP Pulse Ox 12/25/20 08:00 20 12/25/20 07:39 97.8 F 88 20 147/90 95 12/25/20 05:34 98.0 F 91 134/85 94 L 12/25/20 05:05 98.8 F 89 20 117/69 98 12/25/20 04:30 90 20 115/69 98 12/25/20 03:30 89 20 119/67 99 12/25/20 02:41 98 20 137/83 99 12/25/20 01:39 99.3 F 112 H 20 165/106 99 Intake and Output 12/24/20 12/25/20 12/25/20 22:59 06:59 14:59 Output Total 100 Balance -100 Output: Urine 100 Other: # Voids 0 Weight 142.882 kg On physical examination, patient appears comfortable in no apparent distress. HEAD: Normocephalic, atraumatic. EYES: No scleral icterus. No conjunctival injection. MOUTH: No lesions, tongue midline. NECK: Trachea midline, no gross abnormalities. CHEST: Clear to auscultation with no wheezing or rhonchi appreciated. HEART: Regular rate and rhythm. ABDOMEN: Soft, obese and nontender to palpation. Bowel sounds are positive. No organomegaly. No guarding or rigidity. EXTREMITIES: No pedal edema. SKIN: No rashes, no jaundice. NEUROLOGIC: Alert and oriented x3. Results CBC & Chem 7: 12/25/20 02:04 12/25/20 02:04 Labs: Abnormal Lab Results - Last 24 Hours (Table) 12/25/20 12/25/20 12/25/20 Range/Units 02:04 05:19 06:53 Sodium 135 L (137-145) mmol/L Chloride 90 L (98-107) mmol/L Carbon Dioxide 31 H (22-30) mmol/L BUN 52 H (9-20) mg/dL Creatinine 8.09 H* (0.66-1.25) mg/dL Glucose 350 H (74-99) mg/dL POC Glucose (mg/dL) 283 H (75-99) mg/dL Alkaline Phosphatase 170 H (38-126) U/L Urine Protein 1+ H (Negative) Urine Glucose (UA) 3+ H (Negative) Urine Blood Trace H (Negative) Urine Bacteria Rare H (None) /hpf Urine Mucus Rare H (None) /hpf 12/25/20 Range/Units 11:37 Sodium (137-145) mmol/L Chloride (98-107) mmol/L Carbon Dioxide (22-30) mmol/L BUN (9-20) mg/dL Creatinine (0.66-1.25) mg/dL Glucose (74-99) mg/dL POC Glucose (mg/dL) 361 H (75-99) mg/dL Alkaline Phosphatase (38-126) U/L Urine Protein (Negative) Urine Glucose (UA) (Negative) Urine Blood (Negative) Urine Bacteria (None) /hpf Urine Mucus (None) /hpf Comments: X-ray soft tissue neck: Negative. Assessment and Plan (1) Esophageal dysphagia Narrative/Plan: 50-year-old woman medical comorbidities reported some difficulty swallowing as well as headache and chest discomfort. Known history of GERD on omeprazole therapy. Currently patient is tolerating diet with no further complaints. He reports breakthrough reflux even on omeprazole therapy. Suspicion is for possible esophagitis and uncontrolled reflux, differential also includes motility disorder, Schatzki's ring or other etiology. Status: Acute Code(s): R13.10 - DYSPHAGIA, UNSPECIFIED SNOMED Code(s): 83675509 (2) GERD (gastroesophageal reflux disease) Status: Acute Code(s): K21.9 - GASTRO-ESOPHAGEAL REFLUX DISEASE WITHOUT ESOPHAGITIS SNOMED Code(s): 986509698 Plan: Supportive care Okay for diet as tolerated Continue omeprazole therapy Continue other medical management for team Recommend follow-up with GI after discharge or as previously scheduled Thank you for allowing us to participate in the care of the patient we will continue to follow
[2020-12-26] MEDS ORDERED: ASPIRIN 81 MG PO SCH (09:00)
[2020-12-26] MEDS ORDERED: carvediloL 6.25 MG TAB PO SCH (20:00)
== END 2020-12-25 18:07 | disposition home or self-care (01) ==
LOC: EC 01:35 → 6NMEDSUR 04:26
PROVIDERS: ADMIT Family Medicine; ATTEND Family Medicine
DX: R13.14 Dysphagia, pharyngoesophageal phase (principal); K21.00 Gastro-esophageal reflux disease with esophagitis, without bleeding; R51.9 Headache, unspecified; D63.1 Anemia in chronic kidney disease; E11.22 Type 2 diabetes mellitus with diabetic chronic kidney disease; E11.42 Type 2 diabetes mellitus with diabetic polyneuropathy; E11.65 Type 2 diabetes mellitus with hyperglycemia; E66.01 Morbid (severe) obesity due to excess calories; F41.9 Anxiety disorder, unspecified; G47.33 Obstructive sleep apnea (adult) (pediatric); G89.29 Other chronic pain; I12.0 Hypertensive chronic kidney disease with stage 5 chronic kidney disease or end stage renal disease; K22.4 Dyskinesia of esophagus; M79.7 Fibromyalgia; M89.9 Disorder of bone, unspecified; N17.9 Acute kidney failure, unspecified; N18.6 End stage renal disease; Z68.41 Body mass index [BMI] 40.0-44.9, adult; Z79.4 Long term (current) use of insulin; Z79.82 Long term (current) use of aspirin; Z79.899 Other long term (current) drug therapy; Z80.52 Family history of malignant neoplasm of bladder; Z82.49 Family history of ischemic heart disease and other diseases of the circulatory system; Z83.3 Family history of diabetes mellitus; Z86.711 Personal history of pulmonary embolism; Z91.010 Allergy to peanuts; Z99.2 Dependence on renal dialysis
CPT/HCPCS: 96361; 96374; 96375; 99285; 36415; 93005; 80053; 82009; 84484; 85025; 81001; 70360; 71046; 70450; G0378; J1200; J2930; J2270

== ENCOUNTER → 2021-01-27 | Outpatient (CLI) | payer MEDICARE, OTHER ==
--- NOTE | 2021-01-27 15:51 | US ---
EXAMINATION TYPE: US kidneys/renal and bladder DATE OF EXAM: 01/27/2021 COMPARISON: NONE CLINICAL HISTORY: 50-year-old male End stage renal disease N18.6. Renal failure, dialysis TECHNIQUE: Multiple sonographic images of the kidneys and bladder are obtained. FINDINGS: EXAM MEASUREMENTS: Right Kidney: 8.7 x 4.3 x 4.3 cm Left Kidney: 8.9 x 4.4 x 4.5 cm [employer] Specialist notes:*Technical limitations due to patient's body habitus and large amount of overlying bowel content Right Kidney: no evidence of hydronephrosis Left Kidney: no evidence of hydronephrosis Bladder: appears wnl Bilateral Jets seen: no IMPRESSION: Technical exam limitations as above. No hydronephrosis seen on either side.
== END ==
LOC: RADUSWWP 11:58
PROVIDERS: ATTEND Family Medicine
DX: N18.6 End stage renal disease (principal); Z99.2 Dependence on renal dialysis
CPT/HCPCS: 76770

== ENCOUNTER 2021-02-25 08:24 | Emergency (ER) | payer MEDICARE, OTHER ==
[2021-02-25 08:31] VITALS: TEMP 98.8
[2021-02-25] MEDS ORDERED: HYDROmorphone 1 MG/ML 1 ML SYRINGE IM STA (09:05)
[2021-02-25] MEDS ORDERED: HYDROcodone/APAP 7.5-325MG 1 EACH TAB PO ONE (09:06)
--- NOTE | 2021-02-25 09:33 | ED ---
Back Pain HPI - General Chief Complaint: Back Pain/Injury Stated Complaint: pain all over Time Seen by Provider: 02/25/21 08:33 Source: patient, EMS - History of Present Illness Initial Comments: 50-year-old dialysis patient who produces urine, with extensive past medical history including fibromyalgia and chronic back pain, peripheral neuropathy presents emergency department today for chief complaint of pain all over. Patient states that his chronic pain seems to be worse today he states is in the low back near his spine radiating towards the tailbone and down the right leg towards the right great toe. He denies any weakness or sensation deficits of the lower extremities. He denies any upper back pain chest pain shortness of breath he denies any loss of sensation coolness or pallor of the extremities. Patient denies abdominal pain ripping tearing back pain he states it is a sharp pain that increases with any movement of the lowest back. He states he went to dialysis but could not even start it. Patient denies IVDU, hx of cancer, recent falls, fever. Patient denies weakness of the legs, sensation deficits, he denies loss of bowel bladder control or urinary retention. Patient appears nontoxic on arrival - Related Data Home Medications Medication Instructions Recorded Confirmed Sevelamer [Renvela] 3,200 mg PO AC-BID 03/02/18 12/25/20 Folic Acid-Vit B Complex-Vit C 1 cap PO DAILY 04/26/19 12/25/20 [Nephrocaps] Insulin Detemir (Levemir) [Levemir] 60 unit SQ DAILY 12/22/19 12/25/20 Lidocaine-Prilocaine Cream [Emla 1 applic TOPICAL TUTHSA PRN 12/22/19 12/25/20 Cream 2.5%/2.5%] [place]-Lori 1 tab PO DAILY 12/22/19 12/25/20 Carvedilol [Coreg] 25 mg PO BID 06/27/20 12/25/20 Furosemide [Lasix] 80 mg PO SUMOWEFR 10/08/20 12/25/20 INSULIN ASPART (NovoLOG) [NovoLOG 10 unit SQ AC-TID 10/08/20 12/25/20 (formulary)] Losartan [Cozaar] 25 mg PO DAILY PRN 10/08/20 12/25/20 Pantoprazole [Protonix] 40 mg PO DAILY 10/08/20 12/25/20 INSULIN ASPART (NovoLOG) [NovoLOG See Protocol SQ AC-TID 12/25/20 12/25/20 (formulary)] Previous Rx's Medication Instructions Recorded Clotrimazole Cream [Lotrimin Cream] 1 applic TOPICAL DAILY applic 12/25/20 Allergies Allergy/AdvReac Type Severity Reaction Status Date / Time peanut Allergy Anaphylaxis Verified 12/25/20 09:20 Review of Systems ROS Statement: Those systems with pertinent positive or pertinent negative responses have been documented in the HPI. ROS Other: All systems not noted in ROS Statement are negative. Past Medical History Past Medical History: Diabetes Mellitus, Dialysis, Eye Disorder, Fibromyalgia, Hypertension, Pneumonia, Pulmonary Embolus (PE), Renal Disease, Sleep Apnea/CPAP/BIPAP Additional Past Medical History / Comment(s): IDDM type II, DKA, neuropathy bilateral feet, obesity, chronic renal failure stage IV secondary to DM, normocytic anemia, chronic lower back and shoulders pain, herniated lumbar disk, glaucoma R eye, carpal tunnel syndrome bilaterally, bronchitis, PAULA with CPAP. Left drop foot,fistula leeft upper arm,hemodialysis ,, History of Any Multi-Drug Resistant Organisms: MRSA Date of last positivie culture/infection: 11/21/12 MDRO Source:: lower back Past Surgical History: Orthopedic Surgery Additional Past Surgical History / Comment(s): Incision and drainage back and R groin r/t abcesses removed, bilateral eye surgery for retinal repair, R eye surgery for glaucoma-. fistula Past Anesthesia/Blood Transfusion Reactions: Postoperative Nausea & Vomiting (PONV) Additional Past Anesthesia/Blood Transfusion Reaction / Comment(s): pt stated has recieved blood transfusions-no known reaction. Past Psychological History: Anxiety Smoking Status: Never smoker Past Alcohol Use History: None Reported Past Drug Use History: None Reported - Past Family History Father Family Medical History: Diabetes Mellitus, Hypertension Additional Family Medical History / Comment(s): Bladder cancer in father. Father at the age of 78 from bladder cancer complications. Mother Additional Family Medical History / Comment(s): Mother of brain aneurysm General Exam - General Exam Comments Initial Comments: General: The patient is awake and alert, in no distress Eye: +3 mm pupils are equal, round and reactive to light, extra-ocular movements are intact. No nystagmus. There is normal conjunctiva bilaterally. No signs of icterus. Ears, nose, mouth and throat: There are moist mucous membranes and no oral lesions. Neck: The neck is supple, there is no tenderness or JVD. Cardiovascular: There is a regular rate and rhythm. No murmur, rub or gallop is appreciated. Respiratory: Lungs are clear to auscultation, respirations are non-labored, breath sounds are equal. No wheezes, stridor, rales, or rhonchi. Gastrointestinal: Soft, non-distended, non-tender abdomen without masses or organomegaly noted. There is no rebound or guarding present. No CVA tenderness. Musculoskeletal: Normal ROM, no tenderness. Strength 5/5 of the LE b/l. Sensation intact of the LE b/l including the saddle region. Radial, DP and PT pulses equal bilaterally 2+. Neurological: A&O x 3. CN II-XII intact grossly, There are no obvious motor or sensory deficits. Coordination appears grossly intact. Speech is normal. Skin: Skin is warm and dry and no rashes or lesions are noted. Psychiatric: Cooperative, appropriate mood & affect, normal judgment. Course Vital Signs 02/25/21 02/25/21 08:27 11:00 Temperature 98.8 F Pulse Rate 90 89 Respiratory 20 18 Rate Blood Pressure 142/79 121/91 O2 Sat by Pulse 98 96 Oximetry Medical Decision Making - Medical Decision Making 50yo male presenting for cc of low back pain. chronic pain. denies falls. no alarming features on exam/history. patient treated symptomatically. patient on reevaluation pain free. called dialysis clinic who states they will see him within next 30 minutes and perform his dialysis. [facility] was called for patient. patient discharged agreeable to this care plan. [facility] agreeable. Disposition Clinical Impression: Chronic pain, Chronic low back pain Disposition: HOME SELF-CARE Condition: Good Instructions (If sedation given, give patient instructions): Acute Low Back Pain (ED) Additional Instructions: Please use medication as discussed. Please go directly to dialysis. Please return to emergency room if the symptoms increase or worsen or for any other concerns. Is patient prescribed a controlled substance at d/c from ED?: No Referrals: Blas Ramos MD [Primary Care Provider] - 1-2 days Time of Disposition: 09:27
[2021-02-25 11:01] VITALS: BP 121/91; PULSE 89; RESP 18
== END 2021-02-25 11:01 | disposition home or self-care (01) ==
LOC: EC 08:24
DX: M54.5 Low back pain (principal); G89.29 Other chronic pain; F41.9 Anxiety disorder, unspecified; E11.22 Type 2 diabetes mellitus with diabetic chronic kidney disease; N18.4 Chronic kidney disease, stage 4 (severe); I12.9 Hypertensive chronic kidney disease with stage 1 through stage 4 chronic kidney disease, or unspecified chronic kidney disease; G47.33 Obstructive sleep apnea (adult) (pediatric); E11.40 Type 2 diabetes mellitus with diabetic neuropathy, unspecified; Z99.89 Dependence on other enabling machines and devices; Z79.4 Long term (current) use of insulin; Z79.899 Other long term (current) drug therapy; Z91.010 Allergy to peanuts; Z99.2 Dependence on renal dialysis; Z86.14 Personal history of Methicillin resistant Staphylococcus aureus infection
CPT/HCPCS: 99283; 96372; J1170

== ENCOUNTER 2021-03-01 08:30 | Observation (INO) | payer MEDICARE, OTHER ==
[2021-03-01] MEDS ORDERED: ACETAMINOPHEN TAB 325 MG TAB PO STA (08:37)
--- NOTE | 2021-03-01 08:59 | ED ---
General Adult HPI - General Chief complaint: Weakness Stated complaint: headache,vomiting Time Seen by Provider: 03/01/21 08:31 Source: patient, EMS, RN notes reviewed Mode of arrival: EMS Limitations: no limitations - History of Present Illness Initial comments: This is a 50-year-old male presents emergency Department chief complaint of fever cough congestion bodyaches, jaundice weakness. Patient states he was seen here a few days ago for increasing pain he does have chronic pain he has a known renal failure patient on dialysis secondary to hypertension and diabetes. Patient went to dialysis today but was refused secondary to fever. Patient did have his normal treatments on Wednesday and . Patient denies any nausea vomiting no increasing shortness of breath. No significant leg swelling. - Related Data Home Medications Medication Instructions Recorded Confirmed Sevelamer [Renvela] 3,200 mg PO AC-BID 03/02/18 12/25/20 Folic Acid-Vit B Complex-Vit C 1 cap PO DAILY 04/26/19 12/25/20 [Nephrocaps] Insulin Detemir (Levemir) [Levemir] 60 unit SQ DAILY 12/22/19 12/25/20 Lidocaine-Prilocaine Cream [Emla 1 applic TOPICAL TUTHSA PRN 12/22/19 12/25/20 Cream 2.5%/2.5%] [place]-Lori 1 tab PO DAILY 12/22/19 12/25/20 Carvedilol [Coreg] 25 mg PO BID 06/27/20 12/25/20 Furosemide [Lasix] 80 mg PO SUMOWEFR 10/08/20 12/25/20 INSULIN ASPART (NovoLOG) [NovoLOG 10 unit SQ AC-TID 10/08/20 12/25/20 (formulary)] Losartan [Cozaar] 25 mg PO DAILY PRN 10/08/20 12/25/20 Pantoprazole [Protonix] 40 mg PO DAILY 10/08/20 12/25/20 INSULIN ASPART (NovoLOG) [NovoLOG See Protocol SQ AC-TID 12/25/20 12/25/20 (formulary)] Previous Rx's Medication Instructions Recorded Clotrimazole Cream [Lotrimin Cream] 1 applic TOPICAL DAILY applic 12/25/20 Allergies Allergy/AdvReac Type Severity Reaction Status Date / Time peanut Allergy Anaphylaxis Verified 12/25/20 09:20 Review of Systems ROS Statement: Those systems with pertinent positive or pertinent negative responses have been documented in the HPI. ROS Other: All systems not noted in ROS Statement are negative. Past Medical History Past Medical History: Diabetes Mellitus, Dialysis, Eye Disorder, Fibromyalgia, Hypertension, Pneumonia, Pulmonary Embolus (PE), Renal Disease, Sleep Apnea/CPAP/BIPAP Additional Past Medical History / Comment(s): IDDM type II, DKA, neuropathy bilateral feet, obesity, chronic renal failure stage IV secondary to DM, normocytic anemia, chronic lower back and shoulders pain, herniated lumbar disk, glaucoma R eye, carpal tunnel syndrome bilaterally, bronchitis, PAULA with CPAP. Left drop foot,fistula leeft upper arm,hemodialysis ,, History of Any Multi-Drug Resistant Organisms: MRSA Date of last positivie culture/infection: 11/21/12 MDRO Source:: lower back Past Surgical History: Orthopedic Surgery Additional Past Surgical History / Comment(s): Incision and drainage back and R groin r/t abcesses removed, bilateral eye surgery for retinal repair, R eye surgery for glaucoma-. fistula Past Anesthesia/Blood Transfusion Reactions: Postoperative Nausea & Vomiting (PONV) Additional Past Anesthesia/Blood Transfusion Reaction / Comment(s): pt stated has recieved blood transfusions-no known reaction. Past Psychological History: Anxiety Smoking Status: Never smoker Past Alcohol Use History: None Reported Past Drug Use History: None Reported - Past Family History Father Family Medical History: Diabetes Mellitus, Hypertension Additional Family Medical History / Comment(s): Bladder cancer in father. Father at the age of 78 from bladder cancer complications. Mother Additional Family Medical History / Comment(s): Mother of brain aneurysm General Exam Limitations: no limitations General appearance: alert, in no apparent distress Head exam: Present: atraumatic, normocephalic, normal inspection Eye exam: Present: normal appearance, PERRL, EOMI. Absent: scleral icterus, conjunctival injection, periorbital swelling ENT exam: Present: normal exam, mucous membranes moist Neck exam: Present: normal inspection, full ROM. Absent: tenderness, meningismus, lymphadenopathy Respiratory exam: Present: normal lung sounds bilaterally. Absent: respiratory distress, wheezes, rales, rhonchi, stridor Cardiovascular Exam: Present: regular rate, normal rhythm, normal heart sounds. Absent: systolic murmur, diastolic murmur, rubs, gallop, clicks Course Vital Signs 03/01/21 08:37 Temperature 99.7 F H Pulse Rate 98 Respiratory 18 Rate Blood Pressure 125/72 O2 Sat by Pulse 99 Oximetry Medical Decision Making - Medical Decision Making 50-year-old presented for fever cough congestion. Patient is positive for covid. Patient unable to have dialysis today did contact clinic in which they are unable to do so dialysis until next week. Patient will be admitted for dialysis and discharged - Lab Data Lab Results 03/01/21 Range/Units 08:54 Coronavirus (PCR) Detected A (Not Detectd) Disposition Clinical Impression: COVID-19, ESRD needing dialysis Disposition: ADMITTED IP TO THIS HOSP Condition: Fair Referrals: Blas Ramos MD [Primary Care Provider] - 1-2 days
--- NOTE | 2021-03-01 09:57 | XR ---
EXAMINATION TYPE: XR chest 2V DATE OF EXAM: 03/01/2021 COMPARISON: 12/25/2020 HISTORY: Lump in the throat TECHNIQUE: Frontal and lateral views of the chest are obtained. FINDINGS: The exam is limited by the portable technique. The lungs are clear consolidative, interstitial masslike [place]. There is no pleural effusion or pneumothorax. The heart, pulmonary vasculature, mediastinum and hilum are normal. The osseous structures are grossl y intact. IMPRESSION: No acute cardiopulmonary process.
[2021-03-01] MEDS ORDERED: BAMLANIVIMAB (EUA) 700 MG, ETESEVIMAB (EUA) 1,400 MG in SODIUM CHLORIDE 0.9% 50 ML IVPB ONE (10:45)
[2021-03-01] MEDS ORDERED: ACETAMINOPHEN TAB 325 MG TAB PO PRN (11:08)
[2021-03-01] MEDS ORDERED: NALOXONE 0.4 MG/ML 1 ML VIAL IV PRN (11:08)
[2021-03-01] MEDS ORDERED: LOSARTAN 25 MG TAB PO PRN (11:10)
[2021-03-01 12:03] LABS: Basophils # (A) 0.1 k/uL (0-0.2); Basophils % (A) 2 %; Eosinophils % (A) 1 %; HGB 13.9 gm/dL (13.0-17.5); Lymphocytes # (A) 0.8 k/uL (1.0-4.8); Lymphocytes % (A) 24 %; MCH 30.9 pg (25.0-35.0); MCHC 34.7 g/dL (31.0-37.0); MCV 88.8 fL (80.0-100.0); Monocytes # (A) 0.2 k/uL (0-1.0); Monocytes % (A) 8 %; Neutrophils % (A) 64 %; Platelet Count 108 k/uL (150-450); RDW 13.1 % (11.5-15.5); WBC 3.1 k/uL (3.8-10.6)
[2021-03-01 12:17] LABS: Albumin 3.9 g/dL (3.5-5.0); Calcium 8.3 mg/dL (8.4-10.2); Phosphorus 5.8 mg/dL (2.5-4.5); Potassium 4.1 mmol/L (3.5-5.1); Total Bilirubin 1.1 mg/dL (0.2-1.3)
[2021-03-01] MEDS: INSULIN ASPART (NovoLOG) 100 UNIT/ML VIAL SQ SCH ×4 (12:30→17:30)
--- NOTE | 2021-03-01 17:24 | P.NPCON ---
History of Present Illness - Reason for Consult Consult date: 03/01/21 end stage renal disease - Chief Complaint Fevers. - History of Present Illness ESR[facility] He went to dialysis today he had fevers and he was referred to the ER for dialysis treatment. Denies any nausea vomiting diarrhea. No chest pain shortness of breath. Chest x-ray no acute cardiopulmonary process. Review of Systems Constitutional: Reports as per HPI Past Medical History Past Medical History: Diabetes Mellitus, Dialysis, Eye Disorder, Fibromyalgia, Hypertension, Pneumonia, Pulmonary Embolus (PE), Renal Disease, Sleep Apnea/ CPAP/BIPAP Additional Past Medical History / Comment(s): IDDM type II, DKA, neuropathy bilateral feet, obesity, chronic renal failure stage IV secondary to DM, normocytic anemia, chronic lower back and shoulders pain, herniated lumbar disk, glaucoma R eye, carpal tunnel syndrome bilaterally, bronchitis, PAULA with CPAP. Left drop foot,fistula leeft upper arm,hemodialysis , History of Any Multi-Drug Resistant Organisms: MRSA Date of last positivie culture/infection: 11/21/12 MDRO Source:: lower back Past Surgical History: Orthopedic Surgery Additional Past Surgical History / Comment(s): Incision and drainage back and R groin r/t abcesses removed, bilateral eye surgery for retinal repair, R eye surgery for glaucoma-. fistula Past Anesthesia/Blood Transfusion Reactions: Postoperative Nausea & Vomiting (PONV) Additional Past Anesthesia/Blood Transfusion Reaction / Comment(s): pt stated has recieved blood transfusions-no known reaction. Past Psychological History: Anxiety Smoking Status: Never smoker Past Alcohol Use History: None Reported Past Drug Use History: None Reported - Past Family History Father Family Medical History: Diabetes Mellitus, Hypertension Additional Family Medical History / Comment(s): Bladder cancer in father. Father at the age of 78 from bladder cancer complications. Mother Additional Family Medical History / Comment(s): Mother of brain aneurysm Medications and Allergies Home Medications Medication Instructions Recorded Confirmed Type Sevelamer [Renvela] 3,200 mg PO AC-BID 03/02/18 03/01/21 History Folic Acid-Vit B Complex-Vit C 1 cap PO DAILY 04/26/19 03/01/21 History [Nephrocaps] Insulin Detemir (Levemir) [Levemir] 60 unit SQ DAILY 12/22/19 03/01/21 History Lidocaine-Prilocaine Cream [Emla 1 applic TOPICAL TUTHSA PRN 12/22/19 03/01/21 History Cream 2.5%/2.5%] [place]-Lori 1 tab PO DAILY 12/22/19 03/01/21 History Carvedilol [Coreg] 25 mg PO BID 06/27/20 03/01/21 History Furosemide [Lasix] 80 mg PO SUMOWEFR 10/08/20 03/01/21 History INSULIN ASPART (NovoLOG) [NovoLOG 10 unit SQ AC-TID 10/08/20 03/01/21 History (formulary)] Losartan [Cozaar] 25 mg PO DAILY PRN 10/08/20 03/01/21 History Pantoprazole [Protonix] 40 mg PO DAILY 10/08/20 03/01/21 History INSULIN ASPART (NovoLOG) [NovoLOG See Protocol SQ AC-TID 12/25/20 03/01/21 History (formulary)] Baclofen 10 mg PO BID PRN 03/01/21 03/01/21 History Calcium Acetate [Phoslo] 667 mg PO DAILY 03/01/21 03/01/21 History HYDROcodone/APAP 5-325MG [[place] 1 tab PO BID PRN 03/01/21 03/01/21 History 5-325] Allergies Allergy/AdvReac Type Severity Reaction Status Date / Time peanut Allergy Anaphylaxis Verified 03/01/21 11:21 Physical Exam Vitals: Vital Signs Temp Pulse Pulse Resp BP BP Pulse Ox 03/01/21 17:08 99.4 F 94 22 142/61 03/01/21 14:00 81 20 148/75 96 03/01/21 13:00 81 20 141/68 99 03/01/21 11:54 72 20 124/85 99 03/01/21 11:00 100 18 98 03/01/21 10:41 18 115/82 96 03/01/21 09:41 18 03/01/21 08:37 99.7 F H 98 18 125/72 99 Intake and Output 03/01/21 03/01/21 03/01/21 06:59 14:59 22:59 Output Total 1999 Balance -1999 Output: Hemodialysis 1999 Other: Weight 142.882 kg Exam limited secondary to Covid 19 pandemic to limit PPE. Results - Lab Results Most recent lab results Calcium 8.3 mg/dL (8.4-10.2) L 03/01/21 11:54 Phosphorus 5.8 mg/dL (2.5-4.5) H 03/01/21 11:54 03/01/21 11:54 03/01/21 11:54 Assessment and Plan Assessment: #1 Covid 19 Infection #2 ESRD TTS schedule #3 anemia with ESRD #4 metabolic bone disease with ESRD #5 hypertension with ESRD Plan: #1 hemodialysis today as per outpatient schedule. #2 Covid 19 dialysis unit starting next week for 2 weeks, if he goes home today.
[2021-03-01] MEDS: carvediloL 12.5 MG TAB PO SCH (19:08)
[2021-03-02 03:22] VITALS: PULSE 94; RESP 16
[2021-03-02] MEDS ORDERED: HYDROcodone/APAP 5-325MG 1 EACH TAB PO PRN (03:37)
[2021-03-02] MEDS ORDERED: LOPERAMIDE 2 MG CAP PO PRN (03:50)
[2021-03-02] MEDS: BENZONATATE 100 MG CAP PO SCH ×2 (04:36→10:10)
[2021-03-02] MEDS: SODIUM CHLORIDE 0.9% 1,000 ML IV SCH ×2 (04:36→12:04)
[2021-03-02] MEDS ORDERED: INSULIN DETEMIR (LEVEMIR) 100 UNIT/ML SYR SQ SCH (07:00)
[2021-03-02 07:52] LABS: Glucose,Whole Blood 261 mg/dL (75-99)
[2021-03-02] MEDS ORDERED: CHOLECALCIFEROL 25 MCG (1000 IU) TABLET PO SCH (09:00)
[2021-03-02] MEDS ORDERED: ZINC SULFATE 220 MG CAP PO SCH (09:00)
[2021-03-02] MEDS ORDERED: FOLIC ACID 1 MG TAB PO SCH (09:00)
[2021-03-02] MEDS ORDERED: COLCHICINE 0.6 MG EACH PO SCH (09:00)
[2021-03-02] MEDS ORDERED: ASCORBIC ACID 500 MG TAB PO SCH (09:00)
[2021-03-02] MEDS ORDERED: dexAMETHasone 4 MG TAB PO SCH (09:00)
[2021-03-02] MEDS ORDERED: FUROSEMIDE 80 MG TAB PO SCH (09:00)
[2021-03-02] MEDS: carvediloL 12.5 MG TAB PO SCH (10:08)
[2021-03-02] MEDS: INSULIN ASPART (NovoLOG) 100 UNIT/ML VIAL SQ SCH ×4 (10:09→12:04)
[2021-03-02 12:00] LABS: Glucose,Whole Blood 239 mg/dL (75-99)
--- NOTE | 2021-03-02 14:00 | P.HPIM ---
History of Present Illness H&P Date: 03/02/21 Chief Complaint: Weakness, headache, vomiting, fever and body aches 41-year-old male patient presented emergency room via EMS. He is undergoing symptoms of fever cough congestion, body aches and weakness. He he went to the dialysis center for his routine dialysis and was turned away due to the fact that his symptoms and he had a fever. Patient did have normal treatments on Wednesday and and did deny shortness of breath at that time. He has an extensive past medical history of diabetes myelitis, end-stage renal disease secondary to diabetes, obesity, chronic lower back and shoulder pain, herniated lumbar disc, glaucoma right eye, carpal tunnel syndrome bilaterally, bronchitis, obstructive sleep apnea with CPAP, left foot drop fistula in the upper left arm, and his hemodialysis is normally scheduled for Wednesday. Patient in the hospital for dialysis and "BAM therapy" with plans to be discharged home afterwards. Review of Systems Constitutional: Reports chills, Reports chronic pain, Reports fatigue, Reports fever, Reports poor appetite, Reports weakness Ears, nose, mouth and throat: Reports headache, Reports nasal congestion Respiratory: Reports cough, Reports sleep apnea Gastrointestinal: Reports diarrhea, Reports nausea Genitourinary: Reports as per HPI Musculoskeletal: Reports as per HPI, Reports myalgias Integumentary: Reports as per HPI Psychiatric: Reports as per HPI Endocrine: Reports as per HPI, Reports high blood sugars Hematologic/Lymphatic: Reports as per HPI Allergic/Immunologic: Reports as per HPI Past Medical History Past Medical History: Diabetes Mellitus, Dialysis, Eye Disorder, Fibromyalgia, Hypertension, Pneumonia, Pulmonary Embolus (PE), Renal Disease, Sleep Apnea/CPAP/BIPAP Additional Past Medical History / Comment(s): IDDM type II, DKA, neuropathy bilateral feet, obesity, chronic renal failure stage IV secondary to DM, normocytic anemia, chronic lower back and shoulders pain, herniated lumbar disk, glaucoma R eye, carpal tunnel syndrome bilaterally, bronchitis, PAULA with CPAP. Left drop foot,fistula leeft upper arm,hemodialysis History of Any Multi-Drug Resistant Organisms: MRSA Date of last positivie culture/infection: 11/21/12 MDRO Source:: lower back Past Surgical History: Orthopedic Surgery Additional Past Surgical History / Comment(s): Incision and drainage back and R groin r/t abcesses removed, bilateral eye surgery for retinal repair, R eye surgery for glaucoma-. fistula Past Anesthesia/Blood Transfusion Reactions: Postoperative Nausea & Vomiting (PONV) Additional Past Anesthesia/Blood Transfusion Reaction / Comment(s): pt stated has recieved blood transfusions-no known reaction. Past Psychological History: Anxiety Additional Psychological History / Comment(s): He uses a cane. has cpap machine, glucometer. Smoking Status: Never smoker Past Alcohol Use History: None Reported Past Drug Use History: None Reported - Past Family History Father Family Medical History: Diabetes Mellitus, Hypertension Additional Family Medical History / Comment(s): Bladder cancer in father. Father at the age of 78 from bladder cancer complications. Mother Additional Family Medical History / Comment(s): Mother of brain aneurysm Medications and Allergies Home Medications Medication Instructions Recorded Confirmed Type Sevelamer [Renvela] 3,200 mg PO AC-BID 03/02/18 03/01/21 History Folic Acid-Vit B Complex-Vit C 1 cap PO DAILY 04/26/19 03/01/21 History [Nephrocaps] Insulin Detemir (Levemir) [Levemir] 60 unit SQ DAILY 12/22/19 03/01/21 History Lidocaine-Prilocaine Cream [Emla 1 applic TOPICAL TUTHSA PRN 12/22/19 03/01/21 History Cream 2.5%/2.5%] [place]-Lori 1 tab PO DAILY 12/22/19 03/01/21 History Carvedilol [Coreg] 25 mg PO BID 06/27/20 03/01/21 History Furosemide [Lasix] 80 mg PO SUMOWEFR 10/08/20 03/01/21 History INSULIN ASPART (NovoLOG) [NovoLOG 10 unit SQ AC-TID 10/08/20 03/01/21 History (formulary)] Losartan [Cozaar] 25 mg PO DAILY PRN 10/08/20 03/01/21 History Pantoprazole [Protonix] 40 mg PO DAILY 10/08/20 03/01/21 History INSULIN ASPART (NovoLOG) [NovoLOG See Protocol SQ AC-TID 12/25/20 03/01/21 History (formulary)] Baclofen 10 mg PO BID PRN 03/01/21 03/01/21 History Calcium Acetate [Phoslo] 667 mg PO DAILY 03/01/21 03/01/21 History HYDROcodone/APAP 5-325MG [[place] 1 tab PO BID PRN 03/01/21 03/01/21 History 5-325] Allergies Allergy/AdvReac Type Severity Reaction Status Date / Time peanut Allergy Anaphylaxis Verified 03/01/21 11:21 Physical Exam Vitals: Vital Signs Temp Pulse Pulse Pulse Resp BP BP 03/02/21 08:00 94 94 16 03/02/21 07:00 99.8 F H 79 20 112/67 03/02/21 02:30 100.2 F H 94 16 107/79 03/02/21 00:45 16 03/01/21 23:30 101.6 F H 96 22 122/55 03/01/21 20:00 98.3 F 82 22 122/75 03/01/21 19:00 98.2 F 100 22 134/73 03/01/21 17:08 99.4 F 94 22 142/61 03/01/21 14:00 81 20 148/75 Pulse Ox 03/02/21 08:00 03/02/21 07:00 94 L 03/02/21 02:30 93 L 03/02/21 00:45 03/01/21 23:30 93 L 03/01/21 20:00 94 L 03/01/21 19:00 97 03/01/21 17:08 03/01/21 14:00 96 Intake and Output 03/01/21 03/02/21 03/02/21 22:59 06:59 14:59 Output Total 1999 Balance -1999 Output: Hemodialysis 1999 Other: Weight 142.882 kg GENERAL: ill-appearing, well-nourished and in no acute distress. HEAD: Atraumatic, normocephalic. EYES: Pupils equal round and reactive to light, extraocular movements intact, sclera anicteric, conjunctiva are normal. ENT:nares patent, oropharynx clear without exudates. Moist mucous membranes. NECK: Normal range of motion, supple without lymphadenopathy or JVD, no thyromegaly LUNGS: Breath sounds clear to auscultation bilaterally and equal. No wheezes rales or rhonchi. HEART: Regular rate and rhythm without murmurs, rubs or gallops.S1S2 Normal ABDOMEN: Soft, nontender, normoactive bowel sounds. No guarding, no rebound. No masses appreciated. EXTREMITIES: Normal range of motion, no pitting or edema. No clubbing or cyanosis, fistula left upper extremity NEUROLOGICAL: Cranial nerves II through XII grossly intact. Normal speech, normal gait. PSYCH: Normal mood, normal affect. SKIN: Warm, Dry, normal turgor, no rashes or lesions noted. : Normal male genitalia Results CBC & Chem 7: 03/01/21 11:54 03/01/21 11:54 Labs: Abnormal Lab Results - Last 24 Hours (Table) 03/02/21 03/02/21 Range/Units 07:51 11:52 POC Glucose (mg/dL) 261 H 239 H (75-99) mg/dL Assessment and Plan (1) COVID-19 Current Visit: Yes Status: Acute Code(s): U07.1 - COVID-19 SNOMED Code(s): 517809112 (2) ESRD needing dialysis Current Visit: Yes Status: Acute Code(s): N18.6 - END STAGE RENAL DISEASE; Z99.2 - DEPENDENCE ON RENAL DIALYSIS SNOMED Code(s): 15038000 (3) Anxiety Current Visit: No Status: Acute Code(s): F41.9 - ANXIETY DISORDER, UNSPECIFIED SNOMED Code(s): 51800235 (4) Benign hypertension with ESRD (end-stage renal disease) Current Visit: No Status: Acute Code(s): I12.0 - HYP CHR KIDNEY DISEASE W STAGE 5 CHR KIDNEY DISEASE OR ESRD; N18.6 - END STAGE RENAL DISEASE SNOMED Code(s): 31644408 (5) Chronic low back pain Current Visit: No Status: Acute Code(s): M54.5 - LOW BACK PAIN; G89.29 - O THER CHRONIC PAIN SNOMED Code(s): 014688690 (6) Chronic renal failure Current Visit: No Status: Acute Code(s): N18.9 - CHRONIC KIDNEY DISEASE, UNSPECIFIED SNOMED Code(s): 09162355 (7) Cough Current Visit: No Status: Acute Code(s): R05 - COUGH SNOMED Code(s): 93485687 (8) Diabetes Current Visit: No Status: Acute Code(s): E11.9 - TYPE 2 DIABETES MELLITUS WITHOUT COMPLICATIONS SNOMED Code(s): 41087230 (9) Dialysis patient Current Visit: No Status: Acute Code(s): Z99.2 - DEPENDENCE ON RENAL DIALYSIS SNOMED Code(s): 398531385 (10) Diarrhea Current Visit: No Status: Acute Code(s): R19.7 - DIARRHEA, UNSPECIFIED SNOMED Code(s): 18597535 (11) Hyperglycemia Current Visit: No Status: Acute Code(s): R73.9 - HYPERGLYCEMIA, UNSPECIFIED SNOMED Code(s): 64483213 (12) Hypertension Current Visit: No Status: Acute Code(s): I10 - ESSENTIAL (PRIMARY) HYPERTENSION SNOMED Code(s): 39969135 (13) Nausea and vomiting Current Visit: No Status: Acute Code(s): R11.2 - NAUSEA WITH VOMITING, UNSPECIFIED SNOMED Code(s): 17404690 Plan: Consult nephrology for dialysis orders Renal diet We'll discharge home today Patient will continue with dialysis at [address] We'll follow up with our office with telemetry visit with 1-2 days Time with Patient: Greater than 30
--- NOTE | 2021-03-02 14:18 | P.DS ---
Providers Date of admission: 03/01/21 11:19 Expected date of discharge: 03/02/21 Attending physician: Blas Ramos Consults: 03/01/21 11:10 Consult Physician Urgent Consulting Provider: Kavitha Wang Consult Reason/Comments: needs dialysis Do you want consulting provider notified?: Yes Primary care physician: Blas Ramos - Discharge Diagnosis(es) (1) COVID-19 Current Visit: Yes Status: Acute (2) ESRD needing dialysis Current Visit: Yes Status: Acute (3) Anxiety Current Visit: No Status: Acute (4) Benign hypertension with ESRD (end-stage renal disease) Current Visit: No Status: Acute (5) Chronic low back pain Current Visit: No Status: Acute (6) Chronic renal failure Current Visit: No Status: Acute (7) Cough Current Visit: No Status: Acute (8) Diabetes Current Visit: No Status: Acute (9) Dialysis patient Current Visit: No Status: Acute (10) Diarrhea Current Visit: No Status: Acute (11) Hyperglycemia Current Visit: No Status: Acute (12) Hypertension Current Visit: No Status: Acute (13) Nausea and vomiting Current Visit: No Status: Acute Hospital Course: See H&P Assessment: Covid 19 popsitive Chronic renal failure with scheduled dialysis on Wednesday Myalgias, fever, diarrhea, and nausea Patient Condition at Discharge: Fair Plan - Discharge Summary Discharge Rx Participant: No New Discharge Prescriptions: New Cholecalciferol (Vitamin D3) [Vitamin D3 (5000 Iu)] 125 mcg PO DAILY 30 Days #30 cap Zinc 50 mg PO AC-BRKFST #30 tablet Colchicine 0.6 mg PO AC-BRKFST 30 Days #30 capsule Dexamethasone [Decadron] 10 mg PO AC-BRKFST #7 tablet No Action Sevelamer [Renvela] 3,200 mg PO AC-BID Folic Acid-Vit B Complex-Vit C [Nephrocaps] 1 cap PO DAILY Insulin Detemir (Levemir) [Levemir] 60 unit SQ DAILY [place]-Lori 1 tab PO DAILY Lidocaine-Prilocaine Cream [Emla Cream 2.5%/2.5%] 1 applic TOPICAL TUTHSA PRN PRN Reason: PORT ACCESS FOR DIALYSIS Carvedilol [Coreg] 25 mg PO BID Pantoprazole [Protonix] 40 mg PO DAILY Furosemide [Lasix] 80 mg PO SUMOWEFR INSULIN ASPART (NovoLOG) [NovoLOG (formulary)] 10 unit SQ AC-TID Losartan [Cozaar] 25 mg PO DAILY PRN PRN Reason: HIGH BLOOD PRESSURE INSULIN ASPART (NovoLOG) [NovoLOG (formulary)] See Protocol SQ AC-TID Calcium Acetate [Phoslo] 667 mg PO DAILY HYDROcodone/APAP 5-325MG [[place] 5-325] 1 tab PO BID PRN PRN Reason: Pain Baclofen 10 mg PO BID PRN PRN Reason: Muscle Pain Discharge Medication List Sevelamer [Renvela] 3,200 mg PO AC-BID 03/02/18 [History] Folic Acid-Vit B Complex-Vit C [Nephrocaps] 1 cap PO DAILY 04/26/19 [History] Insulin Detemir (Levemir) [Levemir] 60 unit SQ DAILY 12/22/19 [History] Lidocaine-Prilocaine Cream [Emla Cream 2.5%/2.5%] 1 applic TOPICAL TUTHSA PRN 12/22/19 [History] [place]-Lori 1 tab PO DAILY 12/22/19 [History] Carvedilol [Coreg] 25 mg PO BID 06/27/20 [History] Furosemide [Lasix] 80 mg PO SUMOWEFR 10/08/20 [History] INSULIN ASPART (NovoLOG) [NovoLOG (formulary)] 10 unit SQ AC-TID 10/08/20 [History] Losartan [Cozaar] 25 mg PO DAILY PRN 10/08/20 [History] Pantoprazole [Protonix] 40 mg PO DAILY 10/08/20 [History] INSULIN ASPART (NovoLOG) [NovoLOG (formulary)] See Protocol SQ AC-TID 12/25/20 [History] Baclofen 10 mg PO BID PRN 03/01/21 [History] Calcium Acetate [Phoslo] 667 mg PO DAILY 03/01/21 [History] HYDROcodone/APAP 5-325MG [[place] 5-325] 1 tab PO BID PRN 03/01/21 [History] Cholecalciferol (Vitamin D3) [Vitamin D3 (5000 Iu)] 125 mcg PO DAILY 30 Days #30 cap 03/02/21 [Rx] Colchicine 0.6 mg PO AC-BRKFST 30 Days #30 capsule 03/02/21 [Rx] Dexamethasone [Decadron] 10 mg PO AC-BRKFST #7 tablet 03/02/21 [Rx] Zinc 50 mg PO AC-BRKFST #30 tablet 03/02/21 [Rx] Follow up Appointment(s)/Referral(s): Blas Ramos MD [Primary Care Provider] - 1-2 days
--- NOTE | 2021-03-02 14:28 | P.PN ---
Subjective Progress Note Date: 03/02/21 Follow-up for ESRD. Objective - Vital Signs Vital signs: Vital Signs Temp 99.8 F H 03/02/21 07:00 Pulse 94 03/02/21 08:00 Resp 16 03/02/21 08:00 BP 112/67 03/02/21 07:00 Pulse Ox 94 L 03/02/21 07:00 Intake & Output 03/01/21 03/02/21 03/02/21 18:59 06:59 18:59 Intake Total 400 Output Total 1999 Balance -1999 400 Weight 142.882 kg 142.882 kg Intake: Oral 400 Output: Hemodialysis 1999 - Exam Exam limited secondary to Covid 19 pandemic to limit PPE - Labs CBC & Chem 7: 03/01/21 11:54 03/01/21 11:54 Labs: Abnormal Lab Results - Last 24 Hours (Table) 03/02/21 03/02/21 Range/Units 07:51 11:52 POC Glucose (mg/dL) 261 H 239 H (75-99) mg/dL Assessment and Plan Assessment: #1 Covid 19 Infection #2 ESRD TTS schedule #3 anemia with ESRD #4 metabolic bone disease with ESRD #5 hypertension with ESRD Plan: #1 hemodialysis yesterday in the ER, next treatment on Wednesday. #2 Covid 19 dialysis unit starting next week for 2 weeks, if he goes home today.
[2021-03-02 15:14] VITALS: BP 119/68; TEMP 98.5
== END 2021-03-02 16:04 | disposition home or self-care (01) ==
LOC: EC 08:30 → 6NMEDSUR 11:19
PROVIDERS: ADMIT Family Medicine; ATTEND Family Medicine
DX: U07.1 COVID-19 (principal); I12.0 Hypertensive chronic kidney disease with stage 5 chronic kidney disease or end stage renal disease; N18.6 End stage renal disease; Z99.2 Dependence on renal dialysis; E11.22 Type 2 diabetes mellitus with diabetic chronic kidney disease; E11.40 Type 2 diabetes mellitus with diabetic neuropathy, unspecified; E11.65 Type 2 diabetes mellitus with hyperglycemia; D63.1 Anemia in chronic kidney disease; M51.26 Other intervertebral disc displacement, lumbar region; F41.9 Anxiety disorder, unspecified; M79.7 Fibromyalgia; G47.33 Obstructive sleep apnea (adult) (pediatric); Z99.89 Dependence on other enabling machines and devices; G89.29 Other chronic pain; M25.519 Pain in unspecified shoulder; E66.9 Obesity, unspecified; Z68.41 Body mass index [BMI] 40.0-44.9, adult; G56.03 Carpal tunnel syndrome, bilateral upper limbs; H40.9 Unspecified glaucoma; E88.89 Other specified metabolic disorders; M21.372 Foot drop, left foot; Z79.4 Long term (current) use of insulin; Z79.899 Other long term (current) drug therapy; Z91.010 Allergy to peanuts; Z86.14 Personal history of Methicillin resistant Staphylococcus aureus infection; Z86.711 Personal history of pulmonary embolism; Z87.01 Personal history of pneumonia (recurrent); Z82.49 Family history of ischemic heart disease and other diseases of the circulatory system; Z83.3 Family history of diabetes mellitus; Z80.52 Family history of malignant neoplasm of bladder
CPT/HCPCS: 96365; 99285; 80053; 84100; 85025; 87635; 71046; G0378 ×2; G0257; J8540; Q0245; 90935

== ENCOUNTER 2021-05-30 09:00 | Emergency (ER) | payer MEDICARE, OTHER ==
[2021-05-30 09:06] VITALS: BP 165/90; PULSE 100; RESP 16; TEMP 98.5
--- NOTE | 2021-05-30 09:35 | ED ---
General Adult HPI - General Chief complaint: Chest Pain Stated complaint: lump on chest & pain Time Seen by Provider: 05/30/21 09:15 Source: patient Mode of arrival: wheelchair Limitations: no limitations - History of Present Illness Initial comments: 50-year-old male with a past medical history of diabetes mellitus, hemodialysis Wednesday presents to the emergency room for a chief complaint of breast pain. Patient reports that he has had breast pain in the bilateral breasts for over a month now. States they are tender to press on. Patient states he now found a lump in his right nipple. Patient denies any drainage or increased size of breath. Patient reports he thinks he needs a mammogram.Patient has no other complaints at this time including shortness of breath, chest pain, abdominal pain, nausea or vomiting, headache, or visual changes. - Related Data Home Medications Medication Instructions Recorded Confirmed Sevelamer [Renvela] 3,200 mg PO AC-BID 03/02/18 03/01/21 Folic Acid-Vit B Complex-Vit C 1 cap PO DAILY 04/26/19 03/01/21 [Nephrocaps] Insulin Detemir (Levemir) [Levemir] 60 unit SQ DAILY 12/22/19 03/01/21 Lidocaine-Prilocaine Cream [Emla 1 applic TOPICAL TUTHSA PRN 12/22/19 03/01/21 Cream 2.5%/2.5%] [place]-Lori 1 tab PO DAILY 12/22/19 03/01/21 Carvedilol [Coreg] 25 mg PO BID 06/27/20 03/01/21 Furosemide [Lasix] 80 mg PO SUMOWEFR 10/08/20 03/01/21 INSULIN ASPART (NovoLOG) [NovoLOG 10 unit SQ AC-TID 10/08/20 03/01/21 (formulary)] Losartan [Cozaar] 25 mg PO DAILY PRN 10/08/20 03/01/21 Pantoprazole [Protonix] 40 mg PO DAILY 10/08/20 03/01/21 INSULIN ASPART (NovoLOG) [NovoLOG See Protocol SQ AC-TID 12/25/20 03/01/21 (formulary)] Baclofen 10 mg PO BID PRN 03/01/21 03/01/21 Calcium Acetate [Phoslo] 667 mg PO DAILY 03/01/21 03/01/21 HYDROcodone/APAP 5-325MG [[place] 1 tab PO BID PRN 03/01/21 03/01/21 5-325] Previous Rx's Medication Instructions Recorded Cholecalciferol (Vitamin D3) 125 mcg PO DAILY 30 Days #30 cap 03/02/21 [Vitamin D3 (5000 Iu)] Colchicine 0.6 mg PO AC-BRKFST 30 Days #30 03/02/21 capsule Dexamethasone [Decadron] 10 mg PO AC-BRKFST #7 tablet 03/02/21 Zinc 50 mg PO AC-BRKFST #30 tablet 03/02/21 Allergies Allergy/AdvReac Type Severity Reaction Status Date / Time peanut Allergy Anaphylaxis Verified 05/30/21 09:02 Review of Systems ROS Statement: Those systems with pertinent positive or pertinent negative responses have been documented in the HPI. ROS Other: All systems not noted in ROS Statement are negative. Past Medical History Past Medical History: Diabetes Mellitus, Dialysis, Eye Disorder, Fibromyalgia, Hypertension, Pneumonia, Pulmonary Embolus (PE), Renal Disease, Sleep Apnea/CPAP/BIPAP Additional Past Medical History / Comment(s): IDDM type II, DKA, neuropathy bilateral feet, obesity, chronic renal failure stage IV secondary to DM, normocytic anemia, chronic lower back and shoulders pain, herniated lumbar disk, glaucoma R eye, carpal tunnel syndrome bilaterally, bronchitis, PAUAL with CPAP. Left drop foot,fistula leeft upper arm,hemodialysis ,, SA History of Any Multi-Drug Resistant Organisms: MRSA Date of last positivie culture/infection: 11/21/12 MDRO Source:: lower back Past Surgical History: Orthopedic Surgery Additional Past Surgical History / Comment(s): Incision and drainage back and R groin r/t abcesses removed, bilateral eye surgery for retinal repair, R eye surgery for glaucoma-. fistula Past Anesthesia/Blood Transfusion Reactions: Postoperative Nausea & Vomiting (PONV) Additional Past Anesthesia/Blood Transfusion Reaction / Comment(s): pt stated has recieved blood transfusions-no known reaction. Past Psychological History: Anxiety Smoking Status: Never smoker Past Alcohol Use History: None Reported Past Drug Use History: None Reported - Past Family History Father Family Medical History: Diabetes Mellitus, Hypertension Additional Family Medical History / Comment(s): Bladder cancer in father. Father at the age of 78 from bladder cancer complications. Mother Additional Family Medical History / Comment(s): Mother of brain aneurysm General Exam Limitations: no limitations General appearance: alert, in no apparent distress Head exam: Present: atraumatic, normocephalic, normal inspection Eye exam: Present: normal appearance, PERRL, EOMI. Absent: scleral icterus, conjunctival injection, periorbital swelling ENT exam: Present: normal exam, mucous membranes moist Neck exam: Present: normal inspection, full ROM. Absent: tenderness, meningismus, lymphadenopathy Respiratory exam: Present: normal lung sounds bilaterally, chest wall tenderness (Patient has tenderness to the bilateral breasts. Breasts are soft, non- erythematous. No evidence of infection. Right nipple does have indurated mass noted at 12:00). Absent: respiratory distress, wheezes, rales, rhonchi, stridor Cardiovascular Exam: Present: regular rate, normal rhythm, normal heart sounds. Absent: systolic murmur, diastolic murmur, rubs, gallop, clicks GI/Abdominal exam: Present: soft, normal bowel sounds. Absent: distended, tenderness, guarding, rebound, rigid Course Vital Signs 05/30/21 09:02 Temperature 98.5 F Pulse Rate 100 Respiratory 16 Rate Blood Pressure 165/90 O2 Sat by Pulse 99 Oximetry Medical Decision Making - Medical Decision Making HPI physical exam as documented. Vitals are stable. At this time patient needs to see his primary care doctor for either an ultrasound or mammogram. Patient declines any pain medication. Patient will return here for any worsening symptoms. I discussed this case with attending Dr. Tsai who agrees with this assessment and treatment plan. Disposition Clinical Impression: Breast tenderness in male, Breast lump Disposition: HOME SELF-CARE Condition: Good Instructions (If sedation given, give patient instructions): Breast Mass (ED) Additional Instructions: Please follow-up with your doctor by calling today for the earliest appointment. You will likely need an ultrasound or mammogram. Return to the emergency room for any worsening symptoms. Is patient prescribed a controlled substance at d/c from ED?: No Referrals: Sharri Mckeon MD [Primary Care Provider] - 1-2 days Time of Disposition: 09:33
== END 2021-05-30 09:45 | disposition home or self-care (01) ==
LOC: EC 09:00
DX: N63.10 Unspecified lump in the right breast, unspecified quadrant (principal); I12.9 Hypertensive chronic kidney disease with stage 1 through stage 4 chronic kidney disease, or unspecified chronic kidney disease; E11.22 Type 2 diabetes mellitus with diabetic chronic kidney disease; N18.4 Chronic kidney disease, stage 4 (severe); E11.40 Type 2 diabetes mellitus with diabetic neuropathy, unspecified; E66.9 Obesity, unspecified; M79.7 Fibromyalgia; G47.33 Obstructive sleep apnea (adult) (pediatric); F41.9 Anxiety disorder, unspecified; Z86.711 Personal history of pulmonary embolism; Z79.4 Long term (current) use of insulin; Z68.41 Body mass index [BMI] 40.0-44.9, adult; Z99.2 Dependence on renal dialysis
CPT/HCPCS: 99283

== ENCOUNTER → 2021-07-16 | Outpatient (CLI) | payer MEDICARE, OTHER ==
--- NOTE | 2021-07-16 08:58 | P.PAINCN ---
History of Present Illness - Reason for Consult Consult date: 07/16/21 - History of Present Illness This is a 50-year-old patient referred by Dr. Harrell (PCP) with a chief complaint of chronic pain in the lower back and his left leg. 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 States his pain is located mostly in the left back and left hip. Also has occasional anterior thigh pain with radiation the big toe. In regards to the low back pain is described as a constant dull ache with no alleviating factors. His leg pain is located in the anterior thigh with radiation into the big toe described as shooting and stabbing. His pain is exacerbated by laying down, walking, sitti ng. No alleviating factors. Currently 8 out of 10, at its worst a 10 out of 10, at its best a 5 out of 10. Used to go to a pain clinic but was discharged from there, unclear why. Patient has been taking medications from primary care physician including Anderson 5 and Anderson 7.5 with some relief. Last did PT In 2019. Does home exercises. Notes some steroid injections 2018 which were helpful for 30 minutes total. Patient denies adverse drug effects from medications. Patient also denies new-onset weakness, bowel/bladder incontinence, or any other signs or symptoms of cauda equina syndrome. There are no signs of acute intoxication, and no indications of medication diversion or overuse. In addition to above, 13-point review of systems is also negative for chest pain, shortness of breath, changes in vision, changes in hearing, new onset weakness, abdominal pain, diarrhea, extreme fatigue, malaise, fever, skin changes, homicidal or suicidal ideation, or bowel or bladder incontinence. Physical exam: Vital Signs: Reviewed in EMR GENERAL: obese, in no acute distress PSYCH: Mood and affect is appropriate. Awake, alert, and oriented SKIN: Skin color, texture, turgor normal, no rashes or lesions HEENT: Normocephalic, atraumatic. EOM intact CV: No pedal edema RESP: Respirations are slightly labored on exertion, no audible wheezing GI: Abdomen non-distended MUSCULOSKELETAL: L Leg dorsiflexion 3/5. Global strength 4/5. No atrophy or tone abnormalities are noted. Lumbar spine: Straight leg raising in the sitting position is positive for radicular pain on the left side. No pain to palpation over the lumbar spine and paraspinous muscles. Positive for pain with facet loading and back extension/rotation. Minimal to no extension due to pain, in a persistently flexed position Buttocks: pain to palpation over the PSIS, Gerry test is positive Extremities: Peripheral joint ROM is limited and painful. No edema or skin discolorations noted. Gait: Gait is very slow and labored, walks with cane NEUR: Bilateral upper and lower extremity coordination and muscle stretch reflexes are physiologic and symmetric. Negative clonus. No loss of sensation is noted. Cranial nerves are grossly intact. Imaging: Lumbar spine x-ray There is 6 [id number] lumbar segments. Loss of disc height. Lumbar vertebral bodies have preserved height and alignment and bone mineralization. Multilevel spondylosis. Assessment: 1. Lumbar spondylosis 2. Left foot drop Plan: 1. Explanation: Diagnoses, prognoses, and multiple treatment options including but not limited to physical therapy, interventional therapies, medication management and surgery were discussed with the patient and all questions were answered to the patient's satisfaction. 2. Investigations: He had MRI at [facility] 10 days ago. We'll attempt to acquire those records to determine what type of injection would be most helpful 3. Counseling: The patient was counseled for 3 minutes on BODY MASS INDEX, EXERCISE. Specifically, the patient was instructed regarding the importance of weight control, and exercise in the context of both chronic pain and overall health. 4. Procedures: Will determine based on his MRI results. Likely sometimes medial branch workup on the left side transforaminal epidural steroid injection the left side. 5. Consultations: None 6. Medications: As needed from PCP 7. Disposition: We will determine course of action after obtaining MRI results. I spent 47 minutes on patient care today. The time was used to review medical records including relevant urine studies and prescription history (MAPs), review of the available imaging, evaluation and examination the patient, coordination of care at the medical staff and if applicable referring physicians, as well as creation of the medical record. Past Medical History Past Medical History: Diabetes Mellitus, Dialysis, Eye Disorder, Fibromyalgia, Hypertension, Pneumonia, Pulmonary Embolus (PE), Renal Disease, Sleep Apnea/CPAP/BIPAP Additional Past Medical History / Comment(s): IDDM type II, DKA, neuropathy bilateral feet, obesity, chronic renal failure stage IV secondary to DM, normocytic anemia, chronic lower back and shoulders pain, herniated lumbar disk, glaucoma R eye, carpal tunnel syndrome bilaterally, bronchitis, PAULA with CPAP. Left drop foot,fistula leeft upper arm,hemodialysis ,, SA History of Any Multi-Drug Resistant Organisms: MRSA Year Discovered:: 11/21/12 MDRO Source:: lower back Past Surgical History: Orthopedic Surgery Additional Past Surgical History / Comment(s): Incision and drainage back and R groin r/t abcesses removed, bilateral eye surgery for retinal repair, R eye surgery for glaucoma-. fistula,cystoscopy with biopsy Past Anesthesia/Blood Transfusion Reactions: Postoperative Nausea & Vomiting (PONV) Additional Past Anesthesia/Blood Transfusion Reaction / Comm: pt stated has recieved blood transfusions-no known reaction. Smoking Status: Never smoker - Past Family History Father Family Medical History: Diabetes Mellitus, Hypertension Additional Family Medical History / Comment(s): Bladder cancer in father. Father at the age of 78 from bladder cancer complications. Mother Additional Family Medical History / Comment(s): Mother of brain aneurysm Medications and Allergies Home Medications Medication Instructions Recorded Confirmed Type Sevelamer [Renvela] 3,200 mg PO AC-BID 03/02/18 07/14/21 History Folic Acid-Vit B Complex-Vit C 1 cap PO DAILY 04/26/19 07/14/21 History [Nephrocaps] Insulin Detemir (Levemir) [Levemir] 60 unit SQ DAILY 12/22/19 07/14/21 History Lidocaine-Prilocaine Cream [Emla 1 applic TOPICAL TUTHSA PRN 12/22/19 07/14/21 History Cream 2.5%/2.5%] Jayesh-Lori 1 tab PO DAILY 12/22/19 07/14/21 History Carvedilol [Coreg] 25 mg PO BID 06/27/20 07/14/21 History Furosemide [Lasix] 80 mg PO SUMOWEFR 10/08/20 07/14/21 History INSULIN ASPART (NovoLOG) [NovoLOG 10 unit SQ AC-TID 10/08/20 07/14/21 History (formulary)] Pantoprazole [Protonix] 40 mg PO DAILY 10/08/20 07/14/21 History INSULIN ASPART (NovoLOG) [NovoLOG See Protocol SQ AC-TID 12/25/20 07/14/21 Hist ory (formulary)] Baclofen 10 mg PO BID PRN 03/01/21 07/14/21 History Calcium Acetate [Phoslo] 667 mg PO DAILY 03/01/21 07/14/21 History Aspirin [Adult Low Dose Aspirin EC] 81 mg PO DAILY 07/14/21 07/14/21 History Cholecalciferol (Vitamin D3) 125 mcg PO TUTHSA 07/14/21 07/14/21 History [Vitamin D3 (5000 Iu)] Allergies Allergy/AdvReac Type Severity Reaction Status Date / Time peanut Allergy Anaphylaxis Verified 07/14/21 14:18 PQRS Measure Charge Sheet PQRS Narrative: Smoking Status Never smoker Pain Intensity [Lower Back] 7 Scale Used Numeric (1 - 10) Home Medications: Ambulatory Orders Sevelamer [Renvela] 3,200 mg PO AC-BID 03/02/18 Folic Acid-Vit B Complex-Vit C [Nephrocaps] 1 cap PO DAILY 04/26/19 Insulin Detemir (Levemir) [Levemir] 60 unit SQ DAILY 12/22/19 Lidocaine-Prilocaine Cream [Emla Cream 2.5%/2.5%] 1 applic TOPICAL TUTHSA PRN 12/22/19 Wilcox-Lori 1 tab PO DAILY 12/22/19 Carvedilol [Coreg] 25 mg PO BID 06/27/20 Furosemide [Lasix] 80 mg PO SUMOWEFR 10/08/20 INSULIN ASPART (NovoLOG) [NovoLOG (formulary)] 10 unit SQ AC-TID 10/08/20 Pantoprazole [Protonix] 40 mg PO DAILY 10/08/20 INSULIN ASPART (NovoLOG) [NovoLOG (formulary)] See Protocol SQ AC-TID 12/25/20 Baclofen 10 mg PO BID PRN 03/01/21 Calcium Acetate [Phoslo] 667 mg PO DAILY 03/01/21 Aspirin [Adult Low Dose Aspirin EC] 81 mg PO DAILY 07/14/21 Cholecalciferol (Vitamin D3) [Vitamin D3 (5000 Iu)] 125 mcg PO TUTHSA 07/14/21
[2021-07-16 09:16] VITALS: BP 115/77; PULSE 94; RESP 20; TEMP 98.2
== END ==
LOC: PNWHC3 08:29
PROVIDERS: ATTEND Anesthesiology
DX: M47.816 Spondylosis without myelopathy or radiculopathy, lumbar region (principal); M21.372 Foot drop, left foot; I12.9 Hypertensive chronic kidney disease with stage 1 through stage 4 chronic kidney disease, or unspecified chronic kidney disease; E11.22 Type 2 diabetes mellitus with diabetic chronic kidney disease; N18.4 Chronic kidney disease, stage 4 (severe); E11.40 Type 2 diabetes mellitus with diabetic neuropathy, unspecified; Z99.2 Dependence on renal dialysis; Z87.39 Personal history of other diseases of the musculoskeletal system and connective tissue; Z79.4 Long term (current) use of insulin; Z91.010 Allergy to peanuts
CPT/HCPCS: 99211

== ENCOUNTER → 2021-09-05 | Outpatient (CLI) | payer MEDICARE, OTHER ==
[2021-09-05 10:05] VITALS: BP 105/64; PULSE 74; RESP 12; TEMP 98.7
--- NOTE | 2021-09-05 10:42 | P.GSHP ---
History of Present Illness H&P Date: 09/05/21 Chief Complaint: bilateral breast masses/ pain bilateral Gomez is a 51 year old male with a complaint of bilateral breast enlargement. He is experiencing bilateral breast pain with this. He underwent a bilateral mammogram on 7820 and findings were consistent with most likely gynecomastia. There is no change since the mammogram. He has had no changes in medication in the past year. He does not use marijuana. HE has not had any breast biopsies. He has gained 10 pounds in the last 6 months. No masses noted in testicles. Caffiene: none nicotine: none chocolate: none Family History: borther: colon cancer in 30's father: bladder cancer maternal aunt: 2 with breast cancer maternal cousin: breast cancer Surgical history: eye glaucoma knee AC repair back abscess Medical History: dialysis/ 3 years kidney failure HTN/ and DM HTN DM herniated disc fibromyalgia Social History: Nicotine: Negative Alcohol: Negative Drugs: Negative - Constitutional Constitutional: Denies chills, Denies fever - EENT Eyes: bilateral as per HPI Ears: bilateral: tinnitus, deny: decreased hearing Ears, nose, mouth and throat: Reports headache - Breasts Breasts: bilateral: as per HPI - Cardiovascular Cardiovascular: Denies chest pain, Denies shortness of breath - Respiratory Comment: pulmonary embolism Respiratory: Denies cough, Denies 7 - Gastrointestinal Gastrointestinal: Reports constipation, Denies abdominal pain, Denies diarrhea, Denies nausea, Denies vomiting - Genitourinary (Male) Genitourinary: Denies dysuria, Denies hematuria - Musculoskeletal Comment: back pain uses a cane to walk Musculoskeletal: Reports as per HPI - Integumentary Integumentary: Reports pruritus, Denies rash - Neurological Neurological: Reports numbness, Denies weakness - Psychiatric Psychiatric: Reports anxiety - Endocrine Comment: diabetes Endocrine: Reports weight change, Denies fatigue - Hematologic/Lymphatic Comment: none - Allergic/Immunologic Allergic/Immunologic: Reports as per HPI Past Medical History Past Medical History: Diabetes Mellitus, Dialysis, Eye Disorder, Fibromyalgia, Hypertension, Pneumonia, Pulmonary Embolus (PE), Renal Disease, Sleep Apnea/CPAP/BIPAP Additional Past Medical History / Comment(s): IDDM type II, DKA, neuropathy bilateral feet, obesity, chronic renal failure stage IV secondary to DM, normoc ytic anemia, chronic lower back and shoulders pain, herniated lumbar disk, glaucoma R eye, carpal tunnel syndrome bilaterally, bronchitis, PAULA with CPAP. Left drop foot,fistula leeft upper arm,hemodialysis ,, History of Any Multi-Drug Resistant Organisms: MRSA Date of last positivie culture/infection: 11/21/12 MDRO Source:: lower back Past Surgical History: Orthopedic Surgery Additional Past Surgical History / Comment(s): Incision and drainage back and R groin r/t abscesses removed, bilateral eye surgery for retinal repair, R eye surgery for glaucoma-. fistula,cystoscopy with biopsy Past Anesthesia/Blood Transfusion Reactions: Postoperative Nausea & Vomiting (PONV) Additional Past Anesthesia/Blood Transfusion Reaction / Comment(s): pt stated has recieved blood transfusions-no known reaction. Past Psychological History: Anxiety Additional Psychological History / Comment(s): He uses a cane. has cpap machine, glucometer. Smoking Status: Never smoker Past Alcohol Use History: None Reported Past Drug Use History: None Reported - Past Family History Father Family Medical History: Diabetes Mellitus, Hypertension Additional Family Medical History / Comment(s): Bladder cancer in father. Father at the age of 78 from bladder cancer complications. Mother Additional Family Medical History / Comment(s): Mother of brain aneurysm Medications and Allergies Home Medications Medication Instructions Recorded Confirmed Type Folic Acid-Vit B Complex-Vit C 1 cap PO DAILY 04/26/19 09/05/21 History [Nephrocaps] Insulin Detemir (Levemir) [Levemir] 60 unit SQ DAILY 12/22/19 09/05/21 History Lidocaine-Prilocaine Cream [Emla 1 applic TOPICAL TUTHSA PRN 12/22/19 09/05/21 History Cream 2.5%/2.5%] Burke-Lori 1 tab PO DAILY 12/22/19 09/05/21 History Carvedilol [Coreg] 25 mg PO BID 06/27/20 09/05/21 History Furosemide [Lasix] 80 mg PO SUMOWEFR 10/08/20 09/05/21 History INSULIN ASPART (NovoLOG) [NovoLOG 10 unit SQ AC-TID 10/08/20 09/05/21 History (formulary)] Pantoprazole [Protonix] 40 mg PO DAILY 10/08/20 09/05/21 History INSULIN ASPART (NovoLOG) [NovoLOG See Protocol SQ AC-TID 12/25/20 09/05/21 History (formulary)] Baclofen 10 mg PO BID PRN 03/01/21 09/05/21 History Calcium Acetate [Phoslo] 667 mg PO DAILY 03/01/21 09/05/21 History Cholecalciferol (Vitamin D3) 125 mcg PO TUTHSA 07/14/21 09/05/21 History [Vitamin D3 (5000 Iu)] Sevelamer [Renvela] 800 mg PO BID 09/05/21 09/05/21 History Allergies Allergy/AdvReac Type Severity Reaction Status Date / Time peanut Allergy Anaphylaxis Verified 09/05/21 09:45 Surgical - Exam Vital Signs Temp Pulse Resp BP Pulse Ox 98.7 F 74 12 105/64 96 09/05/21 10:01 09/05/21 10:01 09/05/21 10:01 09/05/21 10:01 09/05/21 10:01 BMI 43 - General no distress - ENT normal nares - Neck no masses, trachea midline - Respiratory normal respiratory effort, clear to auscultation - Cardiovascular Rhythm: regular Heart Sounds: normal: S1, S2 - Abdomen Abdomen: soft - Genitourinary no testicular masses, small testicles present - Integumentary AV fistula - Neurologic no disoriented, no combative - Musculoskeletal uses a cane - Psychiatric oriented to time, oriented to person, oriented to place, speech is normal, memory intact Breast examination: Enlargement of the male pressed bilaterally Right breast: Probable gynecomastia mass immediately behind the nipple areolar complex, tender no other dominant masses or nodules of concern Right axilla: No adenopathy of concern Left breast: Probable gynecomastia mass immediately behind the nipple areolar complex, tender to palpation no other dominant masses or nodules of concern Left axilla: No adenopathy of concern Results Mammogram results reviewed from 06-05-21 Assessment and Plan Assessment: Impression: dialysis/ 3 years kidney failure HTN/ and DM HTN DM herniated disc fibromyalgia History of pulmonary embolism Probable bilateral painful gynecomastia; suspect this is related to an endocrine imbalance related to his chronic dialysis Plan: 1. Patient is concerned that he wants to be sure this is not a cancer the only way to definitively rule that out as a core biopsy of both breast; this will be scheduled via ultrasound guidance 2. Testosterone and estrogen levels 3. Follow-up after above done CC: Dr. Sharri Lee
== END ==
LOC: WWCWWP 09:42
PROVIDERS: ATTEND Surgery
DX: N64.4 Mastodynia (principal); M79.7 Fibromyalgia; E11.22 Type 2 diabetes mellitus with diabetic chronic kidney disease; I12.9 Hypertensive chronic kidney disease with stage 1 through stage 4 chronic kidney disease, or unspecified chronic kidney disease; N18.9 Chronic kidney disease, unspecified; M51.26 Other intervertebral disc displacement, lumbar region; F41.9 Anxiety disorder, unspecified; E11.40 Type 2 diabetes mellitus with diabetic neuropathy, unspecified; Z79.4 Long term (current) use of insulin; Z86.711 Personal history of pulmonary embolism; Z99.2 Dependence on renal dialysis; E66.9 Obesity, unspecified; Z68.41 Body mass index [BMI] 40.0-44.9, adult; Z91.010 Allergy to peanuts

== ENCOUNTER → 2021-09-26 | Day surgery (SDC) | payer MEDICARE, OTHER ==
[2021-09-26 09:49] VITALS: RESP 18
[2021-09-26 11:04] VITALS: BP 126/70; PULSE 92; TEMP 98.6
--- NOTE | 2021-09-26 13:46 | USB ---
EXAMINATION TYPE: US biopsy breast VAD RT DATE OF EXAM: 09/26/2021 CLINICAL HISTORY: R92..8 ABN MAMMO,N63 BREAST LUMP. TECHNIQUE: Ultrasound guided vaccuum assisted core biopsy of right breast. COMPARISON: 06/05/2021 FINDINGS: The ultrasound guided core biopsy procedure was explained to the patient. The risks, benef its, alternatives were discussed. An informed consent was then obtained. Timeout was performed. The patient was placed in supine positioning for imaging and for the procedure. The overlying skin w as prepped with betadine and sterilely draped in usual sterile fashion. Lidocaine 1% was used as ane sthetic into the skin and deeper breast tissue up to area of concern in the breast. A small skin lala k was made with surgical scalpel. Under ultrasound guidance, a 12-gauge vacuum assisted biopsy device was used to obtain 3 core samples . No biopsy clip was left. Patient experienced severe right shoulder pain during the examination despite a high level of coopera tion. No significant pain of the biopsy procedure or post biopsy pain is present. Symptoms slowly res olved following completion of the procedure with in a neutral position. Good hemostasis was obtained with direct pressure. Discharge instructions were discussed with the katia garcia. The patient will follow up with the referring physician for results. Left breast have normal ultrasound findings. No left-sided biopsy was performed. Postprocedure mammogram: No post procedure mammogram performed. The patient was discharged to home in stable condition. IMPRESSION: 1. Successful ultrasound guided biopsy right breast. Recommendations: 1. Recommendations are pending right-sided pathology results.
== END ==
LOC: RADUSWWP 09:22
PROVIDERS: ATTEND Surgery
DX: N62 Hypertrophy of breast (principal); N60.11 Diffuse cystic mastopathy of right breast; M25.511 Pain in right shoulder
CPT/HCPCS: 88305; 19083; A4648; J2001

== ENCOUNTER 2021-10-02 04:46 | Emergency (ER) | payer MEDICARE, OTHER ==
[2021-10-02 04:51] VITALS: RESP 18; TEMP 98.4
[2021-10-02] MEDS ORDERED: HYDROmorphone 1 MG/ML 1 ML SYRINGE IM STA ×2 (05:02→06:14)
[2021-10-02] MEDS ORDERED: ONDANSETRON ODT 4 MG TAB PO STA (05:02)
[2021-10-02] MEDS ORDERED: diphenhydrAMINE 50 MG CAP PO STA (05:02)
--- NOTE | 2021-10-02 05:03 | ED ---
Male Urogenital HPI - General Chief complaint: Urogenital Stated complaint: Male Time Seen by Provider: 10/02/21 04:47 Source: patient, RN notes reviewed, old records reviewed Mode of arrival: wheelchair Limitations: no limitations - History of Present Illness Initial comments: This is a 51-year-old male to the ER for evaluation. Patient is a dialysis patient. Patient presents today for evaluation of severe dysuria burning with urination. Denies fevers no bowel pain with does have flank pain and groin pain. Patient states he has a history of chronic pain severe chronic pain is untreated with pain medication. MD Complaint: testicle pain, dysuria -: hour(s) Location: penis Severity: severe Severity scale (1-10): 10 Quality: burning, sharp Consistency: constant Improves with: urination Worsens with: urination new medication Reports: denies other symptoms - Related Data Home Medications Medication Instructions Recorded Confirmed Folic Acid-Vit B Complex-Vit C 1 cap PO DAILY 04/26/19 09/26/21 [Nephrocaps] Lidocaine-Prilocaine Cream [Emla 1 applic TOPICAL TUTHSA PRN 12/22/19 09/26/21 Cream 2.5%/2.5%] Jayesh-Lori 1 tab PO DAILY 12/22/19 09/26/21 Carvedilol [Coreg] 25 mg PO BID 06/27/20 09/26/21 Furosemide [Lasix] 80 mg PO SUMOWEFR 10/08/20 09/26/21 INSULIN ASPART (NovoLOG) [NovoLOG 10 unit SQ AC-TID 10/08/20 09/26/21 (formulary)] Pantoprazole [Protonix] 40 mg PO DAILY 10/08/20 09/26/21 INSULIN ASPART (NovoLOG) [NovoLOG See Protocol SQ AC-TID 12/25/20 09/26/21 (formulary)] Baclofen 10 mg PO BID PRN 03/01/21 09/26/21 Calcium Acetate [Phoslo] 667 mg PO DAILY 03/01/21 09/26/21 Cholecalciferol (Vitamin D3) 125 mcg PO TUTHSA 07/14/21 09/26/21 [Vitamin D3 (5000 Iu)] Sevelamer [Renvela] 800 mg PO BID 10/08/21 10/29/21 Previous Rx's Medication Instructions Recorded Amoxic-Pot Clav 875-125Mg 1 tab PO Q12HR #10 tablet 10/02/21 [Augmentin 875-125] Allergies Allergy/AdvReac Type Severity Reaction Status Date / Time peanut Allergy Anaphylaxis Verified 10/02/21 04:50 Review of Systems ROS Statement: Those systems with pertinent positive or pertinent negative responses have been documented in the HPI. ROS Other: All systems not noted in ROS Statement are negative. Past Medical History Past Medical History: Diabetes Mellitus, Dialysis, Eye Disorder, Fibromyalgia, Hypertension, Pneumonia, Pulmonary Embolus (PE), Renal Disease, Sleep Apnea/CPAP/BIPAP Additional Past Medical History / Comment(s): IDDM type II, DKA, neuropathy bilateral feet, obesity, chronic renal failure stage IV secondary to DM, normocytic anemia, chronic lower back and shoulders pain, herniated lumbar disk, glaucoma R eye, carpal tunnel syndrome bilaterally, bronchitis, PAULA with CPAP. Left drop foot,fistula leeft upper arm,hemodialysis ,, History of Any Multi-Drug Resistant Organisms: MRSA Date of last positivie culture/infection: 11/21/12 MDRO Source:: lower back Past Surgical History: Orthopedic Surgery Additional Past Surgical History / Comment(s): Incision and drainage back and R groin r/t abscesses removed, bilateral eye surgery for retinal repair, R eye surgery for glaucoma-. fistula,cystoscopy with biopsy Past Anesthesia/Blood Transfusion Reactions: Postoperative Nausea & Vomiting (PONV) Additional Past Anesthesia/Blood Transfusion Reaction / Comment(s): pt stated has recieved blood transfusions-no known reaction. Past Psychological History: Anxiety Smoking Status: Never smoker Past Alcohol Use History: None Reported Past Drug Use History: None Reported - Past Family History Father Family Medical History: Diabetes Mellitus, Hypertension Additional Family Medical History / Comment(s): Bladder cancer in father. Father at the age of 78 from bladder cancer complications. Mother Additional Family Medical History / Comment(s): Mother of brain aneurysm General Exam - General Exam Comments Initial Comments: Patient did continually ask for pain management here in the ER General appearance: alert, in no apparent distress, anxious, obese Head exam: Present: atraumatic, normocephalic, normal inspection Eye exam: Present: normal appearance, PERRL, EOMI. Absent: scleral icterus, conjunctival injection, periorbital swelling ENT exam: Present: normal exam, mucous membranes moist Neck exam: Present: normal inspection. Absent: tenderness, meningismus, lymphadenopathy Respiratory exam: Present: normal lung sounds bilaterally. Absent: respiratory distress, wheezes, rales, rhonchi, stridor Cardiovascular Exam: Present: regular rate, normal rhythm, normal heart sounds. Absent: systolic murmur, diastolic murmur, rubs, gallop, clicks GI/Abdominal exam: Present: soft, normal bowel sounds. Absent: distended, tenderness, guarding, rebound, rigid Extremities exam: Present: normal inspection, full ROM, normal capillary refill. Absent: tenderness, pedal edema, joint swelling, calf tenderness Back exam: Present: normal inspection Neurological exam: Present: alert, oriented X3, CN II-XII intact Psychiatric exam: Present: normal affect, normal mood Skin exam: Present: warm, dry, intact, normal color. Absent: rash Course Vital Signs 10/02/21 10/02/21 10/02/21 04:47 08:00 08:40 Temperature 98.4 F 98.4 F Pulse Rate 55 L 61 Respiratory 18 18 18 Rate Blood Pressure 133/81 128/77 O2 Sat by Pulse 99 99 Oximetry - Reevaluation(s) Reevaluation #1: Medical record is reviewed Patient symptoms are improved Patient informed results and questions answered Medical Decision Making - Medical Decision Making 51-year-old male to the emergency department with symptomatic urinary tract infection, this is a dialysis patient with minimal urine output patient will be placed on antibiotics for UTI - Lab Data Lab Results 10/02/21 Range/Units 06:24 Urine Color Yellow Urine Appearance Cloudy (Clear) Urine pH 5.5 (5.0-8.0) Ur Specific [place] 1.016 (1.001-1.035) Urine Protein 2+ H (Negative) Urine Glucose (UA) Negative (Negative) Urine Ketones Negative (Negative) Urine Blood Moderate H (Negative) Urine Nitrite Negative (Negative) Urine Bilirubin Negative (Negative) Urine Urobilinogen <2.0 (<2.0) mg/dL Ur Leukocyte Esterase Large H (Negative) Urine RBC 32 H (0-5) /hpf Urine WBC >182 H (0-5) /hpf Urine WBC Clumps Many H (None) /hpf Ur Squamous Epith Cells 1 (0-4) /hpf Urine Bacteria Moderate H (None) /hpf - Radiology Data Radiology results: report reviewed (CT abdomen and pelvis is negative for kidney stones or acute disease), image reviewed Disposition Clinical Impression: Benign hypertension with ESRD (end-stage renal disease), Back pain, UTI (urinary tract infection) Disposition: HOME SELF-CARE Condition: Good Instructions (If sedation given, give patient instructions): Urinary Tract Infection in Men (ED) Prescriptions: Amoxic-Pot Clav 875-125Mg [Augmentin 875-125] 1 tab PO Q12HR #10 tablet Is patient prescribed a controlled substance at d/c from ED?: No Referrals: Sharri Mckeon MD [Primary Care Provider] - 1-2 days
--- NOTE | 2021-10-02 05:46 | CT ---
EXAMINATION TYPE: CT abdomen pelvis wo con DATE OF EXAM: 10/02/2021 COMPARISON: 11/25/2013 HISTORY: bilateral flank pain. CT DLP: 2236 mGycm Automated exposure control for dose reduction was used. The lung bases are clear. There is no pleural effusion. Heart size is normal. There is no pericardial effusion. Liver spleen stomach pancreas gallbladder appear intact. The bile ducts are not dilated. There is no adrenal mass. Kidneys have normal size and contour. There is no hydronephrosis. Ureters a re not dilated. There is no retroperitoneal adenopathy. Appendix appears normal. There is no evidence of pelvic mass. Bladder distends smoothly. There is no inguinal hernia. There is no free fluid in the pelvis. There are a few bilateral inguinal lymph nodes similar to old exam. There is no mesenteric edema. There is no ascites or free air. There is no bowel obstruction. The lum bar vertebra have normal alignment. There is L2-3 disc space narrowing with spur formation. There is no lumbar compression fracture. Posterior elements are intact. Bony pelvis is intact. The hip joints are intact. IMPRESSION: Negative CT scan of the abdomen pelvis. Normal appendix. No evidence of renal stone or obstruction.
[2021-10-02] MEDS ORDERED: diazePAM 5 MG TAB PO STA (06:14)
[2021-10-02 07:15] LABS: Appearance,Urine Cloudy (Clear); Bacteria,Urine Moderate /hpf; Bilirubin,Urine Negative (Negative); Blood,Urine Moderate (Negative); Color,Urine Yellow; Glucose,Urine (UA) Negative (Negative); Ketones,Urine Negative (Negative); Leukocyte Esterase,Urine Large (Negative); Nitrite,Urine Negative (Negative); PH, Urine 5.5 (5.0-8.0); Protein,Urine 2+ (Negative); RBC,Urine 32 /hpf (0-5); Specific Gravity,Urine 1.016 (1.001-1.035); Squamous Epithelial Cell,Urine 1 /hpf (0-4); Urobilinogen,Urine <2.0 mg/dL (<2.0); WBC,Urine >182 /hpf (0-5)
[2021-10-02] MEDS ORDERED: AMOXIC-POT CLAV 875MG STARTER PACK 2 TAB BTL PO STA (07:18)
[2021-10-02] MEDS ORDERED: PHENAZOPYRIDINE 200 MG TAB PO STA (07:18)
[2021-10-02 08:55] VITALS: BP 128/77; PULSE 61
== END 2021-10-02 08:45 | disposition home or self-care (01) ==
LOC: EC 04:46
DX: N39.0 Urinary tract infection, site not specified (principal); M54.9 Dorsalgia, unspecified; I12.0 Hypertensive chronic kidney disease with stage 5 chronic kidney disease or end stage renal disease; E11.22 Type 2 diabetes mellitus with diabetic chronic kidney disease; N18.6 End stage renal disease; M79.7 Fibromyalgia; E11.40 Type 2 diabetes mellitus with diabetic neuropathy, unspecified; F41.9 Anxiety disorder, unspecified; Z86.711 Personal history of pulmonary embolism; Z79.4 Long term (current) use of insulin; Z99.2 Dependence on renal dialysis
CPT/HCPCS: 99284; 96372 ×2; 81001; 87086; 87077; 87186; 74176; J1170

== ENCOUNTER 2021-10-30 12:28 | Day surgery (SDC) | payer MEDICARE, OTHER ==
[2021-10-28 15:20] VITALS: BMI 42.7
[2021-10-30 13:32] LABS: Glucose,Whole Blood 80 mg/dL (75-99)
[2021-10-30 13:40] VITALS: TEMP 97.8
[2021-10-30] MEDS ORDERED: SODIUM CHLORIDE 0.9% 1,000 ML IV ONE (13:40)
[2021-10-30 13:56] LABS: Basophils % (A) 1 %; Eosinophils # (A) 0.2 k/uL (0-0.7); Eosinophils % (A) 3 %; HCT 37.3 % (39.0-53.0); HGB 12.6 gm/dL (13.0-17.5); Lymphocytes # (A) 2.5 k/uL (1.0-4.8); Lymphocytes % (A) 39 %; MCH 29.2 pg (25.0-35.0); MCHC 33.7 g/dL (31.0-37.0); MCV 86.6 fL (80.0-100.0); Mean Platelet Volume 8.2; Monocytes # (A) 0.4 k/uL (0-1.0); Monocytes % (A) 6 %; Neutrophils # (A) 3.1 k/uL (1.3-7.7); Neutrophils % (A) 50 %; Platelet Count 194 k/uL (150-450); RDW 13.5 % (11.5-15.5); WBC 6.2 k/uL (3.8-10.6)
[2021-10-30] MEDS ORDERED: MIDAZOLAM 2 MG/2 ML VIAL ONE (14:09)
[2021-10-30] MEDS ORDERED: IOPAMIDOL M200 10 ML VIAL ONE (14:09)
[2021-10-30] MEDS ORDERED: .fentaNYL (PF) 50 MCG/ML AMP ONE (14:09)
[2021-10-30] MEDS ORDERED: methylPREDNISolone ACETATE 40 MG/ML 1 ML VIAL ONE (14:09)
--- NOTE | 2021-10-30 14:22 | P.PCN ---
Date of Procedure: 10/30/21 Description of Procedure: Procedure: 1. L5-S1 Epidural steroid injection under fluoroscopic guidance # 1/ , 2. Lumbar epidurogram PREOPERATIVE DIAGNOSIS: Lumbar degenerative disc disease, and Lumbar radiculopathy. POSTOPERATIVE DIAGNOSIS: Lumbar degenerative disc disease, and Lumbar radiculopathy. SURGEON: Patricia Castro ANESTHESIA: Local with 1% lidocaine, and IV sedation as per anesthesia record EBL: None. Specimen removed: None Fluoroscopic image: saved to electronic medical records PROCEDURE INDICATION: The patient had history of Lumbar degenerative disc disease and Lumbar radiculopathy. Failed to conservative therapy. Presented for epidural steroid injection. PROCEDURE DESCRIPTION: The patient was seen and identified in the preoperative area. Risks, benefits, complications, and alternatives were discussed with the patient. The patient agreed to proceed with the procedure and signed the consent. IV was started, and vital signs were stable. Patient was taken to the procedure area, and time out was completed. The patient was placed in the prone position on procedure table and a pillow was placed under the abdomen to reduce lumbar lordosis. The lumbosacral area was prepped and draped in the usual sterile fashion. Critical pause was taken. Vital signs were closely monitored during the procedure. Using anterior-posterior fluoroscopy, the L5-S1 interlaminar space was identified, and skin and deeper tissues were localized with 1% lidocaine. Using anterior-posterior fluoroscopy, lateral fluoroscopy, and [id number] technique, a 18 gauge 6 Tuohy epidural needle entered the epidural space. After negative aspiration of CSF and blood with no paresthesias, 1 ml of [id number] contrast dye was injected and an excellent epidurogram was seen. Again after negative aspiration of CSF and blood with no paresthesias, 10 mL of block solution was injected into the epidural space. Block solution contained 40 mg of Depo-Medrol, and 9 mL of preservative-free normal saline. Needle was withdrawn intact, skin was cleansed, and bandages were applied. COMPLICATIONS: None. DISPOSITION / PLANS: The patient was placed in a supine position and transferred to the recovery area in a stable condition for observation. Patient was discharged from the recovery room after meeting discharge criteria. Home discharge instructions given to the patient by the staff. The patient was reexamined prior to discharge. The patient will schedule a follow up in the [facility] in 4 weeks.
[2021-10-30] MEDS ORDERED: IV FLUID CONTINUATION 1,000 ML IV ONE (14:25)
[2021-10-30] MEDS ORDERED: LACTATED RINGERS 1,000 ML IV SCH (14:30)
--- NOTE | 2021-10-30 14:32 | FL ---
EXAMINATION TYPE: FL guided pain mgmt statistic DATE OF EXAM: 10/30/2021 HISTORY: Fluoroscopy time 5 seconds of fluoroscopy provided. IMPRESSION: 1. Fluoroscopy time.
[2021-10-30 14:45] VITALS: BP 104/71; PULSE 96; RESP 15
== END 2021-10-30 14:59 | disposition home or self-care (01) ==
LOC: ORPAIN 12:28
DX: M51.16 Intervertebral disc disorders with radiculopathy, lumbar region (principal); Z91.010 Allergy to peanuts; E11.22 Type 2 diabetes mellitus with diabetic chronic kidney disease; I12.0 Hypertensive chronic kidney disease with stage 5 chronic kidney disease or end stage renal disease; N18.6 End stage renal disease; H40.9 Unspecified glaucoma
CPT/HCPCS: 85025; 62323; J2250; J1030; J3010; Q9966; 99152

== ENCOUNTER → 2021-12-10 | Outpatient (CLI) | payer MEDICARE, OTHER ==
[2021-12-10 07:58] VITALS: BP 138/77; PULSE 96; RESP 18
--- NOTE | 2021-12-10 08:17 | P.PN ---
Subjective Progress Note Date: 12/10/21 Principal diagnosis: A 51 yr old male with a history of severe and chronic low back pain secondary to lumbar degenerative disc diseases, disc bulge with R nerve impingement & facet arthropathy presents today for evaluation of his latest L5-S1 LESI completed on 10/30/21. Pt states his pain initially was 15 /10 but reduced to 8 /10 s/p procedure but only for 3 days and now the pain has returned. Pt uses a walking cane for ambulation. Currently, pain level is 8 /10, of which it is dull/ achy in the small of his back but sharp/ shooting towards the bilateral hips and the lower extremities. Pain is provoked by palpation, movement, laying supine for periods of 1 hr or more. Pain is alleviated with medications, heat, home based stretching, physical therapy in the past. Interventional pain procedures completed include 1st L5-S1 LESI on Jun, 2021. 2nd L5-S1 LESI on Oct, 2021. Patient is currently on Tylenol OTC. Patient denies any side effects of the medication(s), denies excessive drowsiness or sleepiness, denies suicidal ideation and reports that the current pain medication is helping to control the pain and improve activities of daily living. Patient denies any motor or sensory deficits. Patient denies any fever or night sweats, denies any change in the bowel movements or urination. Physical Examination: -Constitutional: Cooperative. Not in acute distress . -HEENT: Neck is supple. No lymphadenopathy. No thyromegaly. Normal thyroid size. Eyes: No ptosis , no icterus, no photophobia. ENT: No auditory deficits. Normal oropharynx. No Thrush. - Respiratory: Chest clear to auscultations bilaterally. No wheezing. No rhonchi. - Cardiovascular: Regular rate and rhythm. S1 / S2 , no S3 , no S4. - Gastrointestinal: Abdomen soft no tenderness. Bowel sounds positive in all four quadrants. No organomegaly. - Genitourinary: Deferred. - Neurologic: Cranial nerve II to XII intact. No focal neurological deficits. - Psychatric: Alert & oriented x 3. Matching mood & appropriate affect. Judgment and insight intact. - Lymphatic: No Lymphadenopathy. - Musculoskeletal: Cervical spine: Muscle bulk/ tone/ strength in the bilateral upper extremities normal. Facet loading test cervical area positive. Lumbar spine: Motor bulk/ tone/ strength lower extremities , thigh and legs : 5/5 Deep tendon reflexes : Normal Knee Jerk. Normal Ankle Jerk . Lumbar Facet Loading Test positive Straight Leg Raise: positive at 30 degree right side/ left side Gerry test: positive right side > left side Range of motion: Flexion of the lumbar spine <60 degrees Range of motion: Extension of the lumbar spine <20 degrees Straight leg raise test positive at 35 degrees on the right / <45 degrees on the left Severe tenderness over the Sacroiliac joint: right side / left side Assessment and plan: Chronic low back pain secondary to lumbar degenerative disc disease , disc protrusion with right sided impingment and facet arthropathy without myelopathy Recommendation of 3rd L5-S1 LESI Discussed compounding effect of injections and that since the initial one was >3 months from the 2nd one in October, that the effects waned off and pain returned to baseline before the 2nd injection was completed All patient questions answered MAPS reviewed and it was appropriate. I have spent 31 minutes on patient care today. Dr Garduno was available by phone for the evaluation of this patient. The time was used to review the medical records including relevant urine studies and Prescription history (MAPs), review of the available imaging, evaluation and examination of the patient, coordination of care with the medical staff and if applicable referring physicians, as well as creation of the medical record Objective - Vital Signs Vital signs: Vital Signs Temp Pulse 96 12/10/21 07:41 Resp 18 12/10/21 07:41 BP 138/77 12/10/21 07:41 Pulse Ox 96 12/10/21 07:41 PQRS Measure Charge Sheet Mode of Arrival: Ambulatory - Pain Location Lower Back Non-Pharmacological Interventions: Heat, Inactivity, Physical Therapy, Position/Reposition, Relaxation Technique, Sitting, Stretching Pharmacological Interventions: PRN Medication PQRS Narrative: Smoking Status Never smoker Blood Pressure 138/77 Pain Intensity [Lower Back] 10 Scale Used Numeric (1 - 10) Hx Alcohol Use (MH) No Home Medications: Ambulatory Orders Folic Acid-Vit B Complex-Vit C [Nephrocaps] 1 cap PO DAILY 04/26/19 Lidocaine-Prilocaine Cream [Emla Cream 2.5%/2.5%] 1 applic TOPICAL TUTHSA PRN 12/22/19 [place]-Lori 1 tab PO DAILY 12/22/19 Carvedilol [Coreg] 25 mg PO BID 06/27/20 Furosemide [Lasix] 80 mg PO SUMOWEFR 10/08/20 INSULIN ASPART (NovoLOG) [NovoLOG (formulary)] 10 unit SQ AC-TID 10/08/20 Pantoprazole [Protonix] 40 mg PO DAILY 10/08/20 INSULIN ASPART (NovoLOG) [NovoLOG (formulary)] See Protocol SQ AC-TID 12/25/20 Baclofen 10 mg PO BID PRN 03/01/21 Calcium Acetate [Phoslo] 667 mg PO DAILY 03/01/21 Cholecalciferol (Vitamin D3) [Vitamin D3 (5000 Iu)] 125 mcg PO TUTHSA 07/14/21 Sevelamer [Renvela] 800 mg PO BID 09/05/21 Insulin Degludec [Tresiba] 40 units SQ QAM 10/28/21 Insulin Glargine,Hum.rec.anlog [Basaglar Kwikpen U-100] 40 unit SQ QAM 10/28/21
== END ==
LOC: PNWHC3 07:34
PROVIDERS: ATTEND Physician Assistant Medical
DX: M51.36 Other intervertebral disc degeneration, lumbar region (principal); M51.26 Other intervertebral disc displacement, lumbar region; M25.80 Other specified joint disorders, unspecified joint; M47.816 Spondylosis without myelopathy or radiculopathy, lumbar region; G89.29 Other chronic pain; Z91.010 Allergy to peanuts
CPT/HCPCS: 99211

== ENCOUNTER 2022-01-13 09:25 | Inpatient (IN) | payer MEDICARE, OTHER ==
[2022-01-13 09:44] LABS: Glucose,Whole Blood 116 mg/dL (75-99)
[2022-01-13] MEDS ORDERED: MECLIZINE 12.5 MG TAB PO STA (09:57)
--- NOTE | 2022-01-13 10:07 | ED ---
Weakness HPI - General Chief complaint: Weakness Stated complaint: Dizziness/Chest pain Source: patient, EMS Mode of arrival: EMS Limitations: physical limitation - History of Present Illness Initial comments: 9-year-old male past medical history of diabetes, end-stage renal disease on hemodialysis Wednesday, and Wednesday, pulmonary embolism, chronic back pain who presents emergency department from dialysis. He states that for the past 4 days he's had dizziness which he describes as room spinning, headache, cough. He did receive his treatment on Wednesday and completed the whole treatment. Today he attended dialysis with those symptoms. He reports that his glucose and vitals were all normal. They began his treatment. He only got 3 one hour before he had vomiting. Patient was transferred to our facility. No medications administered. He continues to have the access in his left arm. He admits to history of similar episode in the past however reports that it was several years ago. He does admit to a headache. Patient blind in the right eye however denies any other visual changes. No neck stiffness. Denies fevers. No chest pain or abdominal pain. Patient does still make urine. No other alleviating, precipitating or modifying factors - Related Data Home Medications Medication Instructions Recorded Confirmed Folic Acid-Vit B Complex-Vit C 1 cap PO DAILY 04/26/19 01/13/22 [Nephrocaps] Lidocaine-Prilocaine Cream [Emla 1 applic TOPICAL TUTHSA PRN 12/22/19 01/13/22 Cream 2.5%/2.5%] [place]-Lori 1 tab PO DAILY 12/22/19 01/13/22 Carvedilol [Coreg] 25 mg PO BID 06/27/20 01/13/22 Furosemide [Lasix] 80 mg PO SUMOWEFR 10/08/20 01/13/22 INSULIN ASPART (NovoLOG) [NovoLOG 10 unit SQ AC-TID 10/08/20 01/13/22 (formulary)] Pantoprazole [Protonix] 40 mg PO DAILY 10/08/20 01/13/22 INSULIN ASPART (NovoLOG) [NovoLOG See Protocol SQ AC-TID 12/25/20 01/13/22 (formulary)] Baclofen 10 mg PO BID PRN 03/01/21 01/13/22 Calcium Acetate [Phoslo] 667 mg PO DAILY 03/01/21 01/13/22 Cholecalciferol (Vitamin D3) 125 mcg PO TUTHSA 07/14/21 01/13/22 [Vitamin D3 (5000 Iu)] Sevelamer [Renvela] 800 mg PO BID 09/05/21 01/13/22 Insulin Degludec [Tresiba] 40 units SQ DAILY 10/28/21 01/13/22 Insulin Glargine,Hum.rec.anlog 40 unit SQ DAILY 10/28/21 01/13/22 [Basaglar Kwikpen U-100] Prednisolone Acetate/Pf 1 drop RIGHT EYE DAILY PRN 01/13/22 01/13/22 [Prednisolone Acet 1% Eye Drop] Allergies Allergy/AdvReac Type Severity Reaction Status Date / Time peanut Allergy Anaphylaxis Verified 01/13/22 10:02 Review of Systems ROS Statement: Those systems with pertinent positive or pertinent negative responses have been documented in the HPI. ROS Other: All systems not noted in ROS Statement are negative. Past Medical History Past Medical History: Diabetes Mellitus, Dialysis, Eye Disorder, Fibromyalgia, Hypertension, Pneumonia, Pulmonary Embolus (PE), Renal Disease, Sleep Apnea/CPAP/BIPAP Additional Past Medical History / Comment(s): IDDM type II, neuropathy bilateral feet, chronic renal failure, anemia, chronic lower back and shoulders pain, herniated lumbar disk, glaucoma R eye, carpal tunnel syndrome bilaterally, bronchitis, PAULA with CPAP. Left drop foot,fistula left upper arm,hemodialysis ,, , History of Any Multi-Drug Resistant Organisms: MRSA Date of last positivie culture/infection: 11/21/12 MDRO Source:: lower back Past Surgical History: Orthopedic Surgery Additional Past Surgical History / Comment(s): Incision and drainage back and R groin r/t abscesses removed, bilateral eye surgery for retinal repair, R eye surgery for glaucoma-. fistula-left upper arm,cystoscopy with biopsy Past Anesthesia/Blood Transfusion Reactions: Postoperative Nausea & Vomiting (PONV) Additional Past Anesthesia/Blood Transfusion Reaction / Comment(s): pt stated has recieved blood transfusions-no known reaction. Past Psychological History: Anxiety Smoking Status: Never smoker Past Alcohol Use History: None Reported Past Drug Use History: None Reported - Past Family History Brother(s) Family Medical History: Cancer, Deep Vein Thrombosis (DVT) Additional Family Medical History / Comment(s): colon Father Family Medical History: Cancer Additional Family Medical History / Comment(s): Bladder cancer in father. Mother Additional Family Medical History / Comment(s): Mother of brain aneurysm General Exam Limitations: physical limitation Course Vital Signs 01/13/22 01/13/22 09:29 10:10 Temperature 98.0 F Pulse Rate 71 80 Respiratory 18 18 Rate Blood Pressure 141/76 137/79 O2 Sat by Pulse 100 100 Oximetry EKG Findings - EKG Comments: EKG Findings:: EKG demonstrates sinus rhythm with a ventricular rate of 70. AL interval 171. QRS 92. QTC of 446. No acute ST segment elevations or depressions Medical Decision Making - Medical Decision Making Review the patient's labs demonstrates a creatinine of 7.2. Lactic acid 3.4. Covid is detected. Chest x-ray demonstrates chronic interstitial lung disease. A CT of the brain demonstrates no acute ischemia hemorrhage. Spoke with Dr. Adler. Patient will be given antibody infusion. Recommend admission order to complete his dialysis. Patient agreed to this and is currently awaiting a bed on the floor - Lab Data Result diagrams: 01/13/22 10:10 01/13/22 10:10 Lab Results 01/13/22 01/13/22 01/13/22 Range/Units 09:41 10:10 10:10 WBC 5.0 (3.8-10.6) k/uL RBC 4.55 (4.30-5.90) m/uL Hgb 13.4 (13.0-17.5) gm/dL Hct 40.6 (39.0-53.0) % MCV 89.0 (80.0-100.0) fL MCH 29.4 (25.0-35.0) pg MCHC 33.1 (31.0-37.0) g/dL RDW 13.6 (11.5-15.5) % Plt Count 164 (150-450) k/uL MPV 8.8 Neutrophils % 47 % Lymphocytes % 42 % Monocytes % 4 % Eosinophils % 2 % Basophils % 1 % Neutrophils # 2.3 (1.3-7.7) k/uL Lymphocytes # 2.1 (1.0-4.8) k/uL Monocytes # 0.2 (0-1.0) k/uL Eosinophils # 0.1 (0-0.7) k/uL Basophils # 0.1 (0-0.2) k/uL PT 10.9 (9.0-12.0) sec INR 1.0 (<1.2) APTT 46.9 H (22.0-30.0) sec Sodium (137-145) mmol/L Potassium (3.5-5.1) mmol/L Chloride (98-107) mmol/L Carbon Dioxide (22-30) mmol/L Anion Gap mmol/L BUN (9-20) mg/dL Creatinine (0.66-1.25) mg/dL Est GFR (CKD-EPI)AfAm (>60 ml/min/1.73 sqM) Est GFR (CKD-EPI)NonAf (>60 ml/min/1.73 sqM) Glucose (74-99) mg/dL POC Glucose (mg/dL) 116 H (75-99) mg/dL POC Glu [employer] ID Benny Lemata Plasma Lactic Acid Saman (0.7-2.0) mmol/L Calcium (8.4-10.2) mg/dL Magnesium (1.6-2.3) mg/dL Total Bilirubin (0.2-1.3) mg/dL AST (17-59) U/L ALT (4-49) U/L Alkaline Phosphatase (38-126) U/L Troponin I (0.000-0.034) ng/mL NT-Pro-B Natriuret Pep pg/mL Total Protein (6.3-8.2) g/dL Albumin (3.5-5.0) g/dL Coronavirus (PCR) (Not Detectd) 01/13/22 01/13/22 01/13/22 Range/Units 10:10 10:10 10:10 WBC (3.8-10.6) k/uL RBC (4.30-5.90) m/uL Hgb (13.0-17.5) gm/dL Hct (39.0-53.0) % MCV (80.0-100.0) fL MCH (25.0-35.0) pg MCHC (31.0-37.0) g/dL RDW (11.5-15.5) % Plt Count (150-450) k/uL MPV Neutrophils % % Lymphocytes % % Monocytes % % Eosinophils % % Basophils % % Neutrophils # (1.3-7.7) k/uL Lymphocytes # (1.0-4.8) k/uL Monocytes # (0-1.0) k/uL Eosinophils # (0-0.7) k/uL Basophils # (0-0.2) k/uL PT (9.0-12.0) sec INR (<1.2) APTT (22.0-30.0) sec Sodium 139 (137-145) mmol/L Potassium 3.6 (3.5-5.1) mmol/L Chloride 96 L (98-107) mmol/L Carbon Dioxide 31 H (22-30) mmol/L Anion Gap 12 mmol/L BUN 54 H (9-20) mg/dL Creatinine 7.27 H* (0.66-1.25) mg/dL Est GFR (CKD-EPI)AfAm 9 (>60 ml/min/1.73 sqM) Est GFR (CKD-EPI)NonAf 8 (>60 ml/min/1.73 sqM) Glucose 121 H (74-99) mg/dL POC Glucose (mg/dL) (75-99) mg/dL POC Glu [employer] Super[employer] ID Plasma Lactic Acid Saman 3.4 H* (0.7-2.0) mmol/L Calcium 8.5 (8.4-10.2) mg/dL Magnesium 2.0 (1.6-2.3) mg/dL Total Bilirubin 0.9 (0.2-1.3) mg/dL AST 22 (17-59) U/L ALT 17 (4-49) U/L Alkaline Phosphatase 70 (38-126) U/L Troponin I 0.023 (0.000-0.034) ng/mL NT-Pro-B Natriuret Pep pg/mL Total Protein 7.3 (6.3-8.2) g/dL Albumin 3.8 (3.5-5.0) g/dL Coronavirus (PCR) (Not Detectd) 01/13/22 01/13/22 Range/Units 10:10 10:10 WBC (3.8-10.6) k/uL RBC (4.30-5.90) m/uL Hgb (13.0-17.5) gm/dL Hct (39.0-53.0) % MCV (80.0-100.0) fL MCH (25.0-35.0) pg MCHC (31.0-37.0) g/dL RDW (11.5-15.5) % Plt Count (150-450) k/uL MPV Neutrophils % % Lymphocytes % % Monocytes % % Eosinophils % % Basophils % % Neutrophils # (1.3-7.7) k/uL Lymphocytes # (1.0-4.8) k/uL Monocytes # (0-1.0) k/uL Eosinophils # (0-0.7) k/uL Basophils # (0-0.2) k/uL PT (9.0-12.0) sec INR (<1.2) APTT (22.0-30.0) sec Sodium (137-145) mmol/L Potassium (3.5-5.1) mmol/L Chloride (98-107) mmol/L Carbon Dioxide (22-30) mmol/L Anion Gap mmol/L BUN (9-20) mg/dL Creatinine (0.66-1.25) mg/dL Est GFR (CKD-EPI)AfAm (>60 ml/min/1.73 sqM) Est GFR (CKD-EPI)NonAf (>60 ml/min/1.73 sqM) Glucose (74-99) mg/dL POC Glucose (mg/dL) (75-99) mg/dL POC Glu [employer] Super[employer] ID Plasma Lactic Acid Saman (0.7-2.0) mmol/L Calcium (8.4-10.2) mg/dL Magnesium (1.6-2.3) mg/dL Total Bilirubin (0.2-1.3) mg/dL AST (17-59) U/L ALT (4-49) U/L Alkaline Phosphatase (38-126) U/L Troponin I (0.000-0.034) ng/mL NT-Pro-B Natriuret Pep 197 pg/mL Total Protein (6.3-8.2) g/dL Albumin (3.5-5.0) g/dL Coronavirus (PCR) Detected A (Not Detectd) Disposition Clinical Impression: Vertigo, Nausea and vomiting, ESRD (end stage renal disease), COVID-19, Dialysis patient Disposition: ADMITTED IP TO THIS HOSP Condition: Stable Is patient prescribed a controlled substance at d/c from ED?: No Referrals: Sharri Mckeon MD [Primary Care Provider] - 1-2 days Decision to Admit Reason: Admit from EC Decision Date: 01/13/22 Decision Time: 12:17
[2022-01-13] MEDS ORDERED: MORPHINE SULFATE 4 MG/ML SYRINGE IVP STA (10:14)
[2022-01-13] MEDS ORDERED: ONDANSETRON 4 MG/2 ML VIAL IVP STA (10:14)
[2022-01-13 10:26] LABS: Basophils # (A) 0.1 k/uL (0-0.2); Basophils % (A) 1 %; Eosinophils # (A) 0.1 k/uL (0-0.7); Eosinophils % (A) 2 %; HCT 40.6 % (39.0-53.0); HGB 13.4 gm/dL (13.0-17.5); Lymphocytes # (A) 2.1 k/uL (1.0-4.8); Lymphocytes % (A) 42 %; MCH 29.4 pg (25.0-35.0); MCHC 33.1 g/dL (31.0-37.0); Mean Platelet Volume 8.8; Monocytes # (A) 0.2 k/uL (0-1.0); Monocytes % (A) 4 %; Neutrophils # (A) 2.3 k/uL (1.3-7.7); Neutrophils % (A) 47 %; Platelet Count 164 k/uL (150-450); RBC 4.55 m/uL (4.30-5.90); RDW 13.6 % (11.5-15.5)
[2022-01-13 10:37] LABS: Partial Thromboplastin Time 46.9 sec (22.0-30.0); Prothrombin Time 10.9 sec (9.0-12.0)
[2022-01-13 11:01] LABS: Albumin 3.8 g/dL (3.5-5.0); Calcium 8.5 mg/dL (8.4-10.2); Potassium 3.6 mmol/L (3.5-5.1); Total Bilirubin 0.9 mg/dL (0.2-1.3); Total Protein 7.3 g/dL (6.3-8.2)
--- NOTE | 2022-01-13 11:26 | XR ---
EXAMINATION TYPE: XR chest 2V DATE OF EXAM: 01/13/2022 COMPARISON: 03/01/2000 TECHNIQUE: PA and lateral views submitted. HISTORY: Weakness FINDINGS: The lungs are clear and there is no pneumothorax, pleural effusion, or focal pneumonia. Patchy inte rstitial pattern. Arthropathy shoulders. Heart size stable. Mild hypertrophic change of the spine. IMPRESSION: 1. Correlate for chronic interstitial lung disease or interstitial pneumonitis..
--- NOTE | 2022-01-13 11:27 | CT ---
EXAMINATION TYPE: CT brain wo con DATE OF EXAM: 01/13/2022 HISTORY: Headache, dizziness, dialysis patient CT DLP: 1072.4 mGycm. Automated Exposure Control for Dose Reduction was Utilized. TECHNIQUE: CT scan of the head is performed without contrast. COMPARISON: CT brain December 25, 2020. FINDINGS: There is no acute intracranial hemorrhage or midline shift identified. There is diffuse v entricular and sulcal prominence consistent with diffuse age-related cerebral atrophy. There is low- attenuation in the periventricular white matter consistent with chronic small vessel ischemic change. Small right globe with calcifications redemonstrated. Visualized sinuses remain clear. IMPRESSION: No acute intracranial hemorrhage or midline shift. No significant change from prior.
[2022-01-13] MEDS ORDERED: HYDROmorphone 1 MG/ML 1 ML SYRINGE IVP STA (12:05)
[2022-01-13] MEDS ORDERED: HYDROmorphone 1 MG/ML 1 ML SYRINGE IVP PRN (12:17)
[2022-01-13] MEDS ORDERED: ACETAMINOPHEN TAB 325 MG TAB PO PRN (12:17)
[2022-01-13] MEDS ORDERED: ONDANSETRON 4 MG/2 ML VIAL IVP PRN (12:17)
[2022-01-13] MEDS ORDERED: NALOXONE 0.4 MG/ML 1 ML VIAL IV PRN (12:17)
[2022-01-13] MEDS ORDERED: BACLOFEN 10 MG TAB PO PRN (12:32)
[2022-01-13] MEDS ORDERED: prednisoLONE ACETATE 1% OPHTH DROPS 5 ML BTL RIGHT EYE PRN (12:32)
[2022-01-13] MEDS: CHOLECALCIFEROL 125 MCG (5000 IU) TABLET PO SCH (13:08)
[2022-01-13] MEDS ORDERED: SOTROVIMAB (EUA) 500 MG in SODIUM CHLORIDE 0.9% 100 ML IVPB ONE (13:30)
[2022-01-13] MEDS ORDERED: SODIUM CHLORIDE 0.9% 50 ML IVPB ONE (14:00)
--- NOTE | 2022-01-13 14:58 | HP ---
HISTORY AND PHYSICAL DATE OF SERVICE: 01/13/2022 CHIEF COMPLAINTS: Weakness, dizziness, chest pain and vomiting. HISTORY OF PRESENT ILLNESS: This 51-year-old gentleman with a past medical history of end-stage renal disease, on hemodialysis, history of diabetes mellitus, fibromyalgia, being followed by Dr. Sharri Mckeon in the outpatient setting, had a previous COVID infection and received monoclonal antibodies. Currently the patient went to hemodialysis, which could not be completed. Patient was complaining of multiple symptomatology, as mentioned earlier. Patient came to [facility]. COVID-19 was positive. Patient was admitted for further evaluation and treatment. There is no history of any fever, rigors or chills. Patient is unvaccinated. PAST MEDICAL HISTORY: Diabetes mellitus, type 2, end-stage renal disease and hypertension. HOME MEDICATIONS: Reviewed. They include Renvela, Protonix and insulins. Doses are reviewed. ALLERGIES: PEANUTS. FAMILY HISTORY: History of bladder cancer in father. SOCIAL HISTORY: No history of smoking. No history of alcohol. REVIEW OF SYSTEMS: Fourteen-point review of systems negative except as mentioned earlier. PHYSICAL EXAMINATION: Pulse is 80, blood pressure 137/77, respiration 18. HEENT: Conjunctivae normal. Oral mucosa moist. NECK: No jugular venous distention. CARDIOVASCULAR: S1, S2 muffled. RESPIRATION: Breath sounds diminished at the bases. A few scattered rhonchi and crackles. ABDOMEN: Soft, obese, non-tender. LEGS: No edema. No swelling. NERVOUS SYSTEM: No focal deficit. SKIN: No ulcer, rash, bleeding. JOINTS: No active deforming arthropathy. LABS: Creatinine is 1.27 and lactic acid is 3.4. COVID-19 is positive. Chest x-ray which was reviewed personally by me showed chronic interstitial changes. Other labs reviewed. ASSESSMENT: 1. Acute COVID-19 infection with dizziness, chest pain, cough and vomiting. 2. End-stage renal disease, on hemodialysis. 3. Diabetes mellitus, type 2. 4. Hypertension. 5. History of pulmonary embolism. RECOMMENDATIONS AND DISCUSSION: In this 51-year-old gentleman who presented with multiple complex medical issues, at this time I recommend to continue current medications. Because of the high risk, I would recommend SOTROVIMAB the monoclonal antibody against COVID-19 at this time. Otherwise, symptomatic treatment. We will monitor the patient closely. Continue the hemodialysis. Ensure oxygenation. Infectious disease evaluation. Guarded prognosis because of multiple complex medical issues. Further recommendations to follow. The patient might be a candidate for remdesivir as well. Repeat labs are ordered. See orders for further details. MMODL / IJN: [id number] / MTDD
[2022-01-13] MEDS: carvediloL 12.5 MG TAB PO SCH (18:22)
[2022-01-13] MEDS: SEVELAMER 800 MG TAB PO SCH ×2 (18:22→18:24)
[2022-01-13] MEDS: INSULIN ASPART (NovoLOG) 100 UNIT/ML VIAL SQ SCH (18:23)
[2022-01-13 21:09] LABS: Glucose,Whole Blood 114 mg/dL (75-99)
[2022-01-14 06:02] LABS: Appearance,Urine Clear (Clear); Bilirubin,Urine Negative (Negative); Blood,Urine Negative (Negative); Color,Urine Yellow; Glucose,Urine (UA) Negative (Negative); Ketones,Urine Negative (Negative); Leukocyte Esterase,Urine Negative (Negative); Mucus,Urine Rare /hpf; Nitrite,Urine Negative (Negative); PH, Urine 6.5 (5.0-8.0); Protein,Urine 1+ (Negative); RBC,Urine 2 /hpf (0-5); Specific Gravity,Urine 1.011 (1.001-1.035); Squamous Epithelial Cell,Urine <1 /hpf (0-4); Urobilinogen,Urine <2.0 mg/dL (<2.0); WBC,Urine 2 /hpf (0-5)
[2022-01-14 07:33] LABS: Glucose,Whole Blood 131 mg/dL (75-99)
--- NOTE | 2022-01-14 08:28 | P.NPCON ---
History of Present Illness - Reason for Consult end stage renal disease - History of Present Illness Reason for consultation: End-stage renal disease History of present illness: Patient is a 51-year-old male seen in renal consultation for end-stage renal disease. He is maintained on hemodialysis on Wednesday schedule. She presented to the hospital due to dizziness. Patient states dizz iness has been going on for the last 3-4 days. Dizziness got worse while he was receiving hemodialysis yesterday and he was subsequently sent to the hospital. Blood pressure is fairly stable. Patient does admit to severe pain in his lower back due to herniated disc and was scheduled to get steroid injection this week. Denies syncopal episode. No falls. No vomiting or diarrhea. Oral intake has been poor the last few days. CT of the brain showed no acute changes. Patient tested positive for covid-19. Vital signs are stable. General: The patient appeared well nourished and normally developed. HEENT: Head exam is unremarkable. LUNGS: Breath sounds decreased. HEART: Rate and Rhythm are regular. ABDOMEN: Soft, obese. EXTREMITITES: No edema. Past Medical History Past Medical History: Diabetes Mellitus, Dialysis, Eye Disorder, Fibromyalgia, Hypertension, Pneumonia, Pulmonary Embolus (PE), Renal Disease, Sleep Apnea/CPAP/BIPAP Additional Past Medical History / Comment(s): IDDM type II, neuropathy bilateral feet, chronic renal failure, anemia, chronic lower back and shoulders pain, herniated lumbar disk, glaucoma R eye, carpal tunnel syndrome bilaterally, bronchitis, PAULA with CPAP. Left drop foot,fistula left upper arm,hemodialysis , History of Any Multi-Drug Resistant Organisms: MRSA Date of last positivie culture/infection: 11/21/12 MDRO Source:: lower back Past Surgical History: Orthopedic Surgery Additional Past Surgical History / Comment(s): Incision and drainage back and R groin r/t abscesses removed, bilateral eye surgery for retinal repair, R eye surgery for glaucoma-. fistula-left upper arm,cystoscopy with biopsy Past Anesthesia/Blood Transfusion Reactions: Postoperative Nausea & Vomiting (PONV) Additional Past Anesthesia/Blood Transfusion Reaction / Comment(s): pt stated has recieved blood transfusions-no known reaction. Past Psychological History: Anxiety Smoking Status: Never smoker Past Alcohol Use History: None Reported Past Drug Use History: None Reported - Past Family History Brother(s) Family Medical History: Cancer, Deep Vein Thrombosis (DVT) Additional Family Medical History / Comment(s): colon Father Family Medical History: Cancer Additional Family Medical History / Comment(s): Bladder cancer in father. Mother Additional Family Medical History / Comment(s): Mother of brain aneurysm Medications and Allergies Home Medications Medication Instructions Recorded Confirmed Type Folic Acid-Vit B Complex-Vit C 1 cap PO DAILY 04/26/19 01/13/22 History [Nephrocaps] Lidocaine-Prilocaine Cream [Emla 1 applic TOPICAL TUTHSA PRN 12/22/19 01/13/22 History Cream 2.5%/2.5%] [place]-Lori 1 tab PO DAILY 12/22/19 01/13/22 History Carvedilol [Coreg] 25 mg PO BID 06/27/20 01/13/22 History Furosemide [Lasix] 80 mg PO SUMOWEFR 10/08/20 01/13/22 History INSULIN ASPART (NovoLOG) [NovoLOG 10 unit SQ AC-TID 10/08/20 01/13/22 History (formulary)] Pantoprazole [Protonix] 40 mg PO DAILY 10/08/20 01/13/22 History INSULIN ASPART (NovoLOG) [NovoLOG See Protocol SQ AC-TID 12/25/20 01/13/22 History (formulary)] Baclofen 10 mg PO BID PRN 03/01/21 01/13/22 History Calcium Acetate [Phoslo] 667 mg PO DAILY 03/01/21 01/13/22 History Cholecalciferol (Vitamin D3) 125 mcg PO TUTHSA 07/14/21 01/13/22 History [Vitamin D3 (5000 Iu)] Sevelamer [Renvela] 800 mg PO BID 09/05/21 01/13/22 History Insulin Glargine,Hum.rec.anlog 40 unit SQ DAILY 10/28/21 01/13/22 History [Basaglar Kwikpen U-100] Prednisolone Acetate/Pf 1 drop RIGHT EYE DAILY PRN 01/13/22 01/13/22 History [Prednisolone Acet 1% Eye Drop] Allergies Allergy/AdvReac Type Severity Reaction Status Date / Time peanut Allergy Anaphylaxis Verified 01/13/22 10:02 Physical Exam Vitals: Vital Signs Temp Pulse Pulse Pulse Resp BP BP 01/14/22 07:00 98 F 81 18 130/74 01/14/22 01:53 97.6 F 70 14 113/67 01/13/22 19:19 98.1 F 54 L 14 110/75 01/13/22 15:00 98 F 92 18 117/70 01/13/22 14:49 92 18 117/70 01/13/22 14:36 98.0 F 20 138/80 01/13/22 14:00 18 01/13/22 13:12 92 18 135/82 01/13/22 12:17 80 18 131/75 01/13/22 10:10 80 18 137/79 01/13/22 09:29 98.0 F 71 18 141/76 Pulse Ox 01/14/22 07:00 99 01/14/22 01:53 95 01/13/22 19:19 98 01/13/22 15:00 94 L 01/13/22 14:49 94 L 01/13/22 14:36 01/13/22 14:00 01/13/22 13:12 96 01/13/22 12:17 99 01/13/22 10:10 100 01/13/22 09:29 100 Intake and Output 01/13/22 01/14/22 01/14/22 22:59 06:59 14:59 Intake Total 240 Balance 240 Intake: Oral 240 Other: # Voids 1 Weight 147 kg Results - Lab Results Most recent lab results Calcium 8.5 mg/dL (8.4-10.2) 01/13/22 10:10 Magnesium 2.0 mg/dL (1.6-2.3) 01/13/22 10:10 01/13/22 10:10 01/13/22 10:10 Assessment and Plan Plan: Assessment: 1. End-stage renal disease maintained on hemodialysis on Wednesday schedule. 2. Dizziness. Blood pressure stable. Possibly due to pain. CT of the brain negative. 3. COVID-19 infection. Infectious disease consulted. 4. Chronic kidney disease mineral bone disease maintained on phosphate binders. 5. Diabetes mellitus. Plan: Patient completed hemodialysis in the hospital yesterday. Next treatment tomorrow. Pain control. Thank you for the consultation. I will continue to follow the patient with you during his hospital stay.
[2022-01-14] MEDS ORDERED: FUROSEMIDE 80 MG TAB PO SCH (09:00)
[2022-01-14] MEDS ORDERED: [UNRECOGNIZED DRUG - OTHER] PO SCH (09:00)
[2022-01-14] MEDS ORDERED: NON FORMULARY DRUG (Insulin Degludec [Tresiba] 100 UNIT/ML Ml) SQ SCH (09:00)
[2022-01-14 09:28] LABS: Basophils # (A) 0.01 X 10*3/uL (0.00-0.10); Basophils % (A) 0.3 %; Eosinophils # (A) 0.08 X 10*3/uL (0.04-0.35); Eosinophils % (A) 2.2 %; HCT 39.5 % (39.6-50.0); HGB 12.8 g/dL (13.0-17.0); Immature Grans, Automated 0.3 %; Lymphocytes # (A) 1.95 X 10*3/uL (0.90-5.00); Lymphocytes % (A) 53.1 %; MCH 28.6 pg (27.0-32.0); MCHC 32.4 g/dL (32.0-37.0); MCV 88.2 fL (80.0-97.0); Mean Platelet Volume 11.1 fL (9.5-12.2); Monocytes # (A) 0.28 X 10*3/uL (0.20-1.00); Monocytes % (A) 7.6 %; NRBC Per 100 WBC 0 /100 WBCS (0.0-0.0); Neutrophils # (A) 1.34 X 10*3/uL (1.80-7.70); Neutrophils % (A) 36.5 %; Platelet Count 129 X 10*3/uL (140-440); RBC 4.48 X 10*6/uL (4.40-5.60); RDW 12.6 % (11.5-14.5); WBC 3.67 X 10*3/uL (4.50-10.00)
[2022-01-14 09:49] LABS: African American GFR (CKD) 9.3 (60.0-200.0); Anion Gap 14.6 mmol/L (10.00-18.00); BUN/Creat Ratio 6.1 Ratio (12.00-20.00); Blood Urea Nitrogen 43.9 mg/dL (9.0-27.0); Calcium 8.3 mg/dL (8.7-10.3); Carbon Dioxide 25.4 mmol/L (20.0-27.5); Potassium 3.8 mmol/L (3.5-5.5)
[2022-01-14] MEDS: carvediloL 12.5 MG TAB PO SCH ×2 (10:19→17:50)
[2022-01-14] MEDS: INSULIN ASPART (NovoLOG) 100 UNIT/ML VIAL SQ SCH ×5 (10:19→23:21)
[2022-01-14] MEDS: INSULIN DETEMIR (LEVEMIR) 100 UNIT/ML SYR SQ SCH (10:19)
[2022-01-14] MEDS: FOLIC ACID-VIT B COMPLEX-VIT C 1 CAP PO SCH (10:20)
[2022-01-14] MEDS ORDERED: HYDROcodone/APAP 5-325MG 1 EACH TAB PO PRN (10:42)
--- NOTE | 2022-01-14 11:57 | P.CONS ---
History of Present Illness - Reason for Consult Consult date: 01/13/22 covid 19 infection Requesting physician: Devan Adler - Chief Complaint Dizziness x few days - History of Present Illness Patient is a 51-year-old -Cypriot male with a past medical history significant for end-stage renal disease on hemodialysis Wednesday and Wednesday, this patient presented to hospital with dizziness that has been going on for 3 to 4 days before presentation to the hospital patient complaining of severe lower back pain due to herniated disc for the patient is scheduled to undergo steroid injection this week however have because of feeling dizzy and worsening pain the patient presented to the hospital for further evaluation on arrival to the ER the patient was afebrile and no fever has been recorded subsequently the patient is not hypoxic or need for supplemental oxygen patient did have normal white count with no lymphopenia did have elevated BUN and creatinine from his renal failure liver enzymes has been normal urine is negativ e patient did have positive Covid test that has prompted this infectious disease consultation patient did have a chest x-ray chronic incisional disease or pneumonitis no evidence of any acute infiltrates patient has been admitted to hospital infectious disease was consulted for further management Review of Systems CONSTITUTIONAL: Positive for weakness. Denies high-grade Fever EYES: No complaint. ENT:No complaint. RESPIRATORY: As per history of present illness. CARDIOVASCULAR: No complaint. GENITOURINARY: No complaint. GASTROINTESTINAL: No complaint. MUSCULOSKELETAL: No complaint. INTEGUMENTARY: No complaint. PSYCHOLOGICAL: No complaint. ENDOCRINE: No complaint. NEUROLOGIC: As per history of present illness Past Medical History Past Medical History: Diabetes Mellitus, Dialysis, Eye Disorder, Fibromyalgia, Hypertension, Pneumonia, Pulmonary Embolus (PE), Renal Disease, Sleep Apnea/CPAP/BIPAP Additional Past Medical History / Comment(s): IDDM type II, neuropathy bilateral feet, chronic renal failure, anemia, chronic lower back and shoulders pain, herniated lumbar disk, glaucoma R eye, carpal tunnel syndrome bilaterally, bronchitis, PAULA with CPAP. Left drop foot,fistula left upper arm,hemodialysis , History of Any Multi-Drug Resistant Organisms: MRSA Year Discovered:: 11/21/12 MDRO Source:: lower back Past Surgical History: Orthopedic Surgery Additional Past Surgical History / Comment(s): Incision and drainage back and R groin r/t abscesses removed, bilateral eye surgery for retinal repair, R eye surgery for glaucoma-. fistula-left upper arm,cystoscopy with biopsy Past Anesthesia/Blood Transfusion Reactions: Postoperative Nausea & Vomiting (PONV) Additional Past Anesthesia/Blood Transfusion Reaction / Comm: pt stated has recieved blood transfusions-no known reaction. Past Psychological History: Anxiety Smoking Status: Never smoker Past Alcohol Use History: None Reported Past Drug Use History: None Reported - Past Family History Brother(s) Family Medical History: Cancer, Deep Vein Thrombosis (DVT) Additional Family Medical History / Comment(s): colon Father Family Medical History: Cancer Additional Family Medical History / Comment(s): Bladder cancer in father. Mother Additional Family Medical History / Comment(s): Mother of brain aneurysm Medications and Allergies Home Medications Medication Instructions Recorded Confirmed Type Folic Acid-Vit B Complex-Vit C 1 cap PO DAILY 04/26/19 01/13/22 History [Nephrocaps] Lidocaine-Prilocaine Cream [Emla 1 applic TOPICAL TUTHSA PRN 12/22/19 01/13/22 History Cream 2.5%/2.5%] [place]-Lori 1 tab PO DAILY 12/22/19 01/13/22 History Carvedilol [Coreg] 25 mg PO BID 06/27/20 01/13/22 History Furosemide [Lasix] 80 mg PO SUMOWEFR 10/08/20 01/13/22 History INSULIN ASPART (NovoLOG) [NovoLOG 10 unit SQ AC-TID 10/08/20 01/13/22 History (formulary)] Pantoprazole [Protonix] 40 mg PO DAILY 10/08/20 01/13/22 History INSULIN ASPART (NovoLOG) [NovoLOG See Protocol SQ AC-TID 12/25/20 01/13/22 History (formulary)] Baclofen 10 mg PO BID PRN 03/01/21 01/13/22 History Calcium Acetate [Phoslo] 667 mg PO DAILY 03/01/21 01/13/22 History Cholecalciferol (Vitamin D3) 125 mcg PO TUTHSA 07/14/21 01/13/22 History [Vitamin D3 (5000 Iu)] Sevelamer [Renvela] 800 mg PO BID 09/05/21 01/13/22 History Insulin Glargine,Hum.rec.anlog 40 unit SQ DAILY 10/28/21 01/13/22 History [Jassonaglrobert Salazarpen U-100] Prednisolone Acetate/Pf 1 drop RIGHT EYE DAILY PRN 01/13/22 01/13/22 History [Prednisolone Acet 1% Eye Drop] Allergies Allergy/AdvReac Type Severity Reaction Status Date / Time peanut Allergy Anaphylaxis Verified 01/13/22 10:02 Physical Exam Vitals: Vital Signs Temp Pulse Resp BP Pulse Ox 01/13/22 12:17 80 18 131/75 99 01/13/22 10:10 80 18 137/79 100 01/13/22 09:29 98.0 F 71 18 141/76 100 Intake and Output 01/12/22 01/13/22 01/13/22 22:59 06:59 14:59 Other: Weight 147 kg GENERAL DESCRIPTION: Middle-aged male lying in bed, no distress. No tachypnea or accessory muscle of respiration use. HEENT: Shows Pallor , no scleral icterus. Oral mucous membrane is dry. No pharyngeal erythema or thrush NECK: Trachea central, no thyromegaly. LUNGS: Unlabored breathing. Decreased breath sounds at the base. No wheeze or crackle. HEART: S1, S2, regular rate and rhythm. No loud murmur ABDOMEN: Soft, no tenderness , guarding or rigidity, no organomegaly EXTREMITIES: No edema of feet. SKIN: No rash, no masses palpable. NEUROLOGICAL: The patient is awake, alert, oriented x3, mood and affect normal. Results CBC & Chem 7: 01/14/22 06:10 01/14/22 06:10 Labs: Abnormal Lab Results - Last 24 Hours (Table) 01/13/22 01/13/22 01/13/22 Range/Units 09:41 10:10 10:10 APTT 46.9 H (22.0-30.0) sec Chloride 96 L (98-107) mmol/L Carbon Dioxide 31 H (22-30) mmol/L BUN 54 H (9-20) mg/dL Creatinine 7.27 H* (0.66-1.25) mg/dL Glucose 121 H (74-99) mg/dL POC Glucose (mg/dL) 116 H (75-99) mg/dL Plasma Lactic Acid Saman (0.7-2.0) mmol/L Coronavirus (PCR) (Not Detectd) 01/13/22 01/13/22 Range/Units 10:10 10:10 APTT (22.0-30.0) sec Chloride (98-107) mmol/L Carbon Dioxide (22-30) mmol/L BUN (9-20) mg/dL Creatinine (0.66-1.25) mg/dL Glucose (74-99) mg/dL POC Glucose (mg/dL) (75-99) mg/dL Plasma Lactic Acid Saman 3.4 H* (0.7-2.0) mmol/L Coronavirus (PCR) Detected A (Not Detectd) Assessment and Plan (1) COVID-19 Current Visit: Yes Status: Acute Code(s): U07.1 - COVID-19 SNOMED Code(s): 186309008 Plan: 1-Patient with a positive Covid test in this patient currently do not have any fever patient did have a mild cough but no other respiratory symptoms and is not hypoxic or need for supplemental oxygen chest x-ray was negative for any peripheral groundglass opacities parapneumonic for Covid pneumonia, and this patient symptom has been mostly dizziness questionably related to his severe low back pain from his herniated disc 2-treatment for positive COVID test to be mostly supportive patient did not qualify for steroids or remdesivir 3-zinc ascorbic acid and droplet isolation We will follow on clinical condition and cultures to further adjust medication if needed Thank you for this consultation will follow this patient along with you Time with Patient: Greater than 30
[2022-01-14 12:05] LABS: Glucose,Whole Blood 127 mg/dL (75-99)
[2022-01-14] MEDS: SEVELAMER 800 MG TAB PO SCH ×2 (13:30→17:50)
[2022-01-14 17:16] LABS: Glucose,Whole Blood 121 mg/dL (75-99)
[2022-01-14] MEDS: CALCIUM ACETATE 667 MG TAB PO SCH (17:50)
[2022-01-14 21:04] LABS: Glucose,Whole Blood 159 mg/dL (75-99)
--- NOTE | 2022-01-14 22:36 | P.PN ---
Subjective Progress Note Date: 01/14/22 Principal diagnosis: Positive covid 19 Patient is a 51-year-old -[place] male with a past medical history significant for end-stage renal disease on hemodialysis patient also have intractable lower back pain from his underlying herniated disc admitted to the hospital with dizziness did have mild cough and positive covid test. On today's evaluation that is 01/14/2022 the patient denies having any fever or any chills, the patient is a breathing comfortably on her home patient had a mild cough or sputum production, the patient denies having any further nausea vomiting or dizziness no abdominal pain or diarrhea Objective - Vital Signs Vital signs: Vital Signs Temp 98 F 01/14/22 14:59 Pulse 78 01/14/22 14:59 Resp 18 01/14/22 14:59 BP 104/61 01/14/22 14:59 Pulse Ox 98 01/14/22 14:59 Intake & Output 01/13/22 01/14/22 01/14/22 18:59 06:59 18:59 Intake Total 1260 240 Output Total 500 Balance 760 240 Weight 147 kg 147 kg Intake: Oral 960 240 Hemodialysis 300 Output: Hemodialysis 500 Other: Voiding Method Urinal # Voids 3 1 2 - Exam GENERAL DESCRIPTION: Middle-aged male lying in bed in no distress RESPIRATORY SYSTEM: Unlabored breathing , decreased breath sounds at bases HEART: S1 S2 regular rate and rhythm , ABDOMEN: Soft , no tenderness EXTREMITIES: No edema feet - Labs CBC & Chem 7: 01/14/22 06:10 01/14/22 06:10 Labs: Abnormal Lab Results - Last 24 Hours (Table) 01/13/22 01/14/22 01/14/22 Range/Units 21:07 02:30 06:10 WBC 3.67 L (4.50-10.00) X 10*3/uL Hgb 12.8 L (13.0-17.0) g/dL Hct 39.5 L (39.6-50.0) % Plt Count 129 L (140-440) X 10*3/uL Neutrophils # 1.34 L (1.80-7.70) X 10*3/uL BUN (9.0-27.0) mg/dL Creatinine (0.6-1.5) mg/dL Est GFR (CKD-EPI)AfAm (60.0-200.0) Est GFR (CKD-EPI)NonAf (60.0-200.0) BUN/Creatinine Ratio (12.00-20.00) Ratio Glucose (70-110) mg/dL POC Glucose (mg/dL) 114 H (75-99) mg/dL Calcium (8.7-10.3) mg/dL Urine Protein 1+ H (Negative) Urine Mucus Rare H (None) /hpf 01/14/22 01/14/22 01/14/22 Range/Units 06:10 07:18 12:03 WBC (4.50-10.00) X 10*3/uL Hgb (13.0-17.0) g/dL Hct (39.6-50.0) % Plt Count (140-440) X 10*3/uL Neutrophils # (1.80-7.70) X 10*3/uL BUN 43.9 H (9.0-27.0) mg/dL Creatinine 7.2 H* (0.6-1.5) mg/dL Est GFR (CKD-EPI)AfAm 9.3 L (60.0-200.0) Est GFR (CKD-EPI)NonAf 8.0 L (60.0-200.0) BUN/Creatinine Ratio 6.10 L (12.00-20.00) Ratio Glucose 128 H (70-110) mg/dL POC Glucose (mg/dL) 131 H 127 H (75-99) mg/dL Calcium 8.3 L (8.7-10.3) mg/dL Urine Protein (Negative) Urine Mucus (None) /hpf Assessment and Plan (1) COVID-19 Current Visit: Yes Status: Acute Code(s): U07.1 - COVID-19 SNOMED Code(s): 446681028 Plan: 1-Patient with a positive Covid test in this patient currently do not have any fever patient did have a mild cough but no other respiratory symptoms and is not hypoxic or need for supplemental oxygen chest x-ray was negative for any p eripheral groundglass opacities pathognomonic for Covid pneumonia, and this patient symptom has been mostly dizziness questionably related to his severe low back pain from his herniated disc 2-treatment for positive COVID test to be mostly supportive patient did not qualify for steroids or remdesivir 3-zinc ascorbic acid and droplet isolation and continue supportive care Time with Patient: Less than 30
[2022-01-14 23:11] LABS: Glucose,Whole Blood 217 mg/dL (75-99)
--- NOTE | 2022-01-14 23:50 | P.PN ---
Subjective Progress Note Date: 01/14/22 01/14/2022 This is a 51 year old male who was recently admitted with multiple symptoms including dizziness and unable to complete dialysis and is being closely monitored. Patient is found to be covid positive and denies any other symptoms. Nephrology following along with infectious disease. Patient received dialysis yesterday and is scheduled for as his normal routine schedule. Patient is reporting continued back pain of which he states he follows with pain management in the outpatient setting. Patient denies chest pain or shortness of breath. Patient is afebrile. No reported nausea or vomiting noted. Patient to continue with vitamin and zinc supplements. Review of systems: Constitutional: No reports of fatigue, fever, or chills Cardiovascular: No reports of chest pain or palpitations Respiratory: No reports of shortness of breath or cough GI: No reports of nausea, vomiting, or diarrhea : No reports of dysuria or retention Neurovascular: No reports of weakness or numbness, reports low back pain. All medications have been reviewed Active Medications Acetaminophen (Acetaminophen Tab 325 Mg Tab) 650 mg PO Q6HR PRN PRN Reason: Mild Pain or Fever > 100.5 Hydrocodone Bitart/Acetaminophen (Hydrocodone/Apap 5-325mg 1 Each Tab) 1 each PO Q6HR PRN PRN Reason: Pain Last Admin: 01/14/22 12:35 Dose: 1 each Documented by: Ascorbic Acid (Ascorbic Acid 500 Mg Tab) 1,000 mg PO DAILY [facility] Baclofen (Baclofen 10 Mg Tab) 10 mg PO BID PRN PRN Reason: Muscle Pain Calcium Acetate (Calcium Acetate 667 Mg Tab) 667 mg PO W/LUNCH [facility] Last Admin: 01/14/22 17:50 Dose: 667 mg Documented by: Carvedilol (Carvedilol 12.5 Mg Tab) 25 mg PO BID-W/MEALS [facility] Last Admin: 01/14/22 17:50 Dose: 25 mg Documented by: Cholecalciferol (Cholecalciferol 125 Mcg (5000 Iu) Tablet) 125 mcg PO TUTHSA [facility] Last Admin: 01/13/22 13:08 Dose: 125 mcg Documented by: Furosemide (Furosemide 80 Mg Tab) 80 mg PO SUMOWEFR [facility] Last Admin: 01/14/22 10:20 Dose: 80 mg Documented by: Hydromorphone HCl (Hydromorphone 1 Mg/Ml 1 Ml Syringe) 0.5 mg IVP Q3HR PRN PRN Reason: Moderate Pain Insulin Aspart (Insulin Aspart (Novolog) 100 Unit/Ml Vial) 10 unit SQ AC-TID S Last Admin: 01/14/22 18:53 Dose: Not Given Documented by: Insulin Aspart (Insulin Aspart (Novolog) 100 Unit/Ml Vial) 0 unit SQ ACHS [facility]; Protocol Last Admin: 01/14/22 23:21 Dose: 4 unit Documented by: Insulin Detemir (Insulin Detemir (Levemir) 100 Unit/Ml Syr) 40 unit SQ DAILY [facility] Last Admin: 01/14/22 10:19 Dose: 40 unit Documented by: Multivit/Ca Carb/B Cmplx/FA/Prenat (Folic Acid-Vit B Complex-Vit C 1 Cap) 1 each PO DAILY [facility] Last Admin: 01/14/22 10:20 Dose: 1 each Documented by: Naloxone HCl (Naloxone 0.4 Mg/Ml 1 Ml Vial) 0.2 mg IV Q2M PRN PRN Reason: Opioid Reversal Ondansetron HCl (Ondansetron 4 Mg/2 Ml Vial) 4 mg IVP Q8HR PRN PRN Reason: Nausea And Vomiting Prednisolone Acetate (Prednisolone Acetate 1% Ophth Drops 5 Ml Btl) 1 drops RIGHT EYE DAILY PRN PRN Reason: Dry Eye(s) Sevelamer Carbonate (Sevelamer 800 Mg Tab) 800 mg PO BID-W/MEALS [facility] Last Admin: 01/14/22 17:50 Dose: 800 mg Documented by: Zinc Sulfate (Zinc Sulfate 220 Mg Cap) 220 mg PO DAILY [facility] PHYSICAL EXAMINATION: GENERAL: The patient is alert and oriented x4, morbidly obese, Well developed, well nourished. HEENT: Pupils are round and equally reacting to light. EOMI. does have scleral icterus. No conjunctival pallor. Normocephalic, atraumatic. No pharyngeal erythema. No thyromegaly. CARDIOVASCULAR: S1 and S2 muffled PULMONARY: diminished breath sounds bilaterally with Few scattered rhonchi noted. ABDOMEN: soft. obese. Non-distended, normoactive bowel sounds. No palpable organomegaly. MUSCULOSKELETAL: No joint swelling or deformity. EXTREMITIES: No cyanosis, clubbing, or pedal edema. NEUROLOGICAL: Gross neurological examination did not reveal any focal deficits. SKIN: No rashes. Assessment: Acute covid 19 infection with dizziness, chest pain, cough, and vomiting, present on admission End stage renal disease, on hemodialysis Diabetes mellitus, type 2 Hypertension History of pulmonary embolism chronic lower back pain, sees pain management outpatient Full code Plan: Recommend to continue with symptomatic treatment. Patient is maintained on dialysis T/TH/S with nephrology following. REcommend to continue with vitamin and zinc supplements. ID following and patient does not qualify for steroids or Remdesivir. Patient denies any shortness of breath and is on room air. Patient is not vaccinated and has had covid in the past last March and did receive monoclonal antibodies at that time. Patient to receive dialysis tomorrow with possible discharge in 24 hours. Prognosis is guarded. The impression and plan of care has been dictated by Zora Booht, nurse practitioner as directed. MD Colton I have performed a history and examination and MDM of this patient, discussed the same with the dictator, and agree with the dictator's assessment and plan as written ,documented as a scribe. Based on total visit time, I have performed more than 50% of the visit. Any additional findings or plans will be noted. Objective - Vital Signs Vital signs: Vital Signs Temp 98 F 01/14/22 07:00 Pulse 81 01/14/22 07:00 Resp 18 01/14/22 07:00 BP 130/74 01/14/22 07:00 Pulse Ox 93 L 01/14/22 08:26 Intake & Output 01/13/22 01/14/22 01/14/22 18:59 06:59 18:59 Intake Total 1260 240 Output Total 500 Balance 760 240 Weight 147 kg 147 kg Intake: Oral 960 240 Hemodialysis 300 Output: Hemodialysis 500 Other: # Voids 3 1 - Labs CBC & Chem 7: 01/14/22 06:10 01/14/22 06:10 Labs: Abnormal Lab Results - Last 24 Hours (Table) 01/13/22 01/13/22 01/13/22 Range/Units 09:41 10:10 10:10 ESR (0-15) mm/hr APTT 46.9 H (22.0-30.0) sec Chloride 96 L (98-107) mmol/L Carbon Dioxide 31 H (22-30) mmol/L BUN 54 H (9-20) mg/dL Creatinine 7.27 H* (0.66-1.25) mg/dL Glucose 121 H (74-99) mg/dL POC Glucose (mg/dL) 116 H (75-99) mg/dL Plasma Lactic Acid Saman (0.7-2.0) mmol/L C-Reactive Protein (<1.0) mg/dL Urine Protein (Negative) Urine Mucus (None) /hpf Coronavirus (PCR) (Not Detectd) 01/13/22 01/13/22 01/13/22 Range/Units 10:10 10:10 10:10 ESR (0-15) mm/hr APTT (22.0-30.0) sec Chloride (98-107) mmol/L Carbon Dioxide (22-30) mmol/L BUN (9-20) mg/dL Creatinine (0.66-1.25) mg/dL Glucose (74-99) mg/dL POC Glucose (mg/dL) (75-99) mg/dL Plasma Lactic Acid Saman 3.4 H* (0.7-2.0) mmol/L C-Reactive Protein 1.4 H (<1.0) mg/dL Urine Protein (Negative) Urine Mucus (None) /hpf Coronavirus (PCR) Detected A (Not Detectd) 01/13/22 01/13/22 01/13/22 Range/Units 13:02 13:02 21:07 ESR 34 H (0-15) mm/hr APTT (22.0-30.0) sec Chloride (98-107) mmol/L Carbon Dioxide (22-30) mmol/L BUN (9-20) mg/dL Creatinine (0.66-1.25) mg/dL Glucose (74-99) mg/dL POC Glucose (mg/dL) 114 H (75-99) mg/dL Plasma Lactic Acid Saman <0.5 L (0.7-2.0) mmol/L C-Reactive Protein (<1.0) mg/dL Urine Protein (Negative) Urine Mucus (None) /hpf Coronavirus (PCR) (Not Detectd) 01/14/22 01/14/22 Range/Units 02:30 07:18 ESR (0-15) mm/hr APTT (22.0-30.0) sec Chloride (98-107) mmol/L Carbon Dioxide (22-30) mmol/L BUN (9-20) mg/dL Creatinine (0.66-1.25) mg/dL Glucose (74-99) mg/dL POC Glucose (mg/dL) 131 H (75-99) mg/dL Plasma Lactic Acid Saman (0.7-2.0) mmol/L C-Reactive Protein (<1.0) mg/dL Urine Protein 1+ H (Negative) Urine Mucus Rare H (None) /hpf Coronavirus (PCR) (Not Detectd)
[2022-01-15] MEDS ORDERED: INSULIN ASPART (NovoLOG) 100 UNIT/ML VIAL SQ SCH (07:30)
[2022-01-15 07:52] LABS: Glucose,Whole Blood 213 mg/dL (75-99)
[2022-01-15] MEDS: carvediloL 12.5 MG TAB PO SCH (08:31)
[2022-01-15] MEDS: SEVELAMER 800 MG TAB PO SCH (08:32)
[2022-01-15] MEDS: INSULIN ASPART (NovoLOG) 100 UNIT/ML VIAL SQ SCH ×4 (08:32→12:49)
[2022-01-15] MEDS: FOLIC ACID-VIT B COMPLEX-VIT C 1 CAP PO SCH (08:33)
[2022-01-15] MEDS: INSULIN DETEMIR (LEVEMIR) 100 UNIT/ML SYR SQ SCH (08:33)
[2022-01-15] MEDS ORDERED: ZINC SULFATE 220 MG CAP PO SCH (09:00)
[2022-01-15] MEDS ORDERED: ASCORBIC ACID 500 MG TAB PO SCH (09:00)
--- NOTE | 2022-01-15 09:38 | P.PN ---
Subjective Patient is seen in follow-up for end-stage renal disease. Scheduled for dialysis today. Dizziness improved. Has been ambulating. No chest pain or shortness of breath. No vomiting or diarrhea. Vital signs are stable. General: The patient appeared well nourished and normally developed. HEENT: Head exam is unremarkable. Neck is without jugular venous distension. LUNGS: Breath sounds decreased. HEART: Rate and Rhythm are regular. ABDOMEN: Soft, obese. EXTREMITITES: No edema. Objective - Vital Signs Vital signs: Vital Signs Temp 97.8 F 01/15/22 07:00 Pulse 73 01/15/22 07:00 Resp 18 01/15/22 08:47 BP 129/80 01/15/22 07:00 Pulse Ox 97 01/15/22 07:00 Intake & Output 01/14/22 01/15/22 01/15/22 18:59 06:59 18:59 Intake Total 240 Balance 240 Intake: Oral 240 Other: Voiding Method Urinal Urinal # Voids 2 2 - Labs CBC & Chem 7: 01/14/22 06:10 01/14/22 06:10 Labs: Abnormal Lab Results - Last 24 Hours (Table) 01/14/22 01/14/22 01/14/22 Range/Units 06:10 12:03 17:14 BUN 43.9 H (9.0-27.0) mg/dL Creatinine 7.2 H* (0.6-1.5) mg/dL Est GFR (CKD-EPI)AfAm 9.3 L (60.0-200.0) Est GFR (CKD-EPI)NonAf 8.0 L (60.0-200.0) BUN/Creatinine Ratio 6.10 L (12.00-20.00) Ratio Glucose 128 H (70-110) mg/dL POC Glucose (mg/dL) 127 H 121 H (75-99) mg/dL Calcium 8.3 L (8.7-10.3) mg/dL 01/14/22 01/14/22 01/15/22 Range/Units 21:02 23:10 07:33 BUN (9.0-27.0) mg/dL Creatinine (0.6-1.5) mg/dL Est GFR (CKD-EPI)AfAm (60.0-200.0) Est GFR (CKD-EPI)NonAf (60.0-200.0) BUN/Creatinine Ratio (12.00-20.00) Ratio Glucose (70-110) mg/dL POC Glucose (mg/dL) 159 H 217 H 213 H (75-99) mg/dL Calcium (8.7-10.3) mg/dL Assessment and Plan Plan: Assessment: 1. End-stage renal disease maintained on hemodialysis on Wednesday schedule. 2. Dizziness. Blood pressure stable. Possibly due to pain. CT of the brain negative. 3. COVID-19 infection. Infectious disease following. Hemodialysis today. 4. Chronic kidney disease mineral bone disease maintained on phosphate binders. 5. Diabetes mellitus. Plan: Hemodialysis today.
[2022-01-15 11:44] LABS: Glucose,Whole Blood 177 mg/dL (75-99)
[2022-01-15] MEDS: CHOLECALCIFEROL 125 MCG (5000 IU) TABLET PO SCH (14:08)
[2022-01-15] MEDS: CALCIUM ACETATE 667 MG TAB PO SCH (14:08)
[2022-01-15 15:51] VITALS: BP 138/80; PULSE 82; RESP 22; TEMP 98
--- NOTE | 2022-01-16 16:05 | P.DS ---
Providers Date of admission: 01/15/22 10:34 Expected date of discharge: 01/15/22 Attending physician: Devan Adler Consults: 01/13/22 12:18 Consult Physician Urgent Consulting Provider: Lewis Werner Consult Reason/Comments: ESRD on HD Do you want consulting provider notified?: Yes 01/13/22 12:34 Consult Physician Routine Consulting Provider: Cristian Garcia Consult Reason/Comments: covid Do you want consulting provider notified?: Yes Primary care physician: Sharri Mckeon Hospital Course: Final diagnosis Acute covid 19 infection with dizziness, chest pain, cough, and vomiting, present on admission End stage renal disease, on hemodialysis Diabetes mellitus, type 2 Hypertension History of pulmonary embolism chronic lower back pain, sees pain management outpatient Full code Discharge disposition Patient is being discharged in a stable condition with guarded prognosis to home. Patient will follow-up with Dr. Mckeon in the outpatient setting upon discharge. Patient is to continue with hemodialysis as scheduled. Patient also needs to follow-up with pain management in the outpatient setting. Total time taken is greater than 35 minutes. Hospital course Is a 51-year-old male who was recently admitted with multiple symptoms including dizziness and unable to complete dialysis and was being closely monitored. Patient was also found to be: Positive and denies any respiratory symptoms. Nephrology following along with infectious disease and patient did not qualify for antivirals and is currently on room air with no points of shortness of breath. Patient did receive monoclonal antibodies and will be discharged today after dialysis. Patient is maintained on Wednesday//Wednesday schedule and will continue. Patient also instructed to follow-up with primary care provider and pain management in the outpatient setting for his chronic low back pain. Currently no reports of chest pain, shortness of breath, or palpitations. Patient is afebrile. No reports of nausea or vomiting and patient is tolerating diet. Patient will be discharged home today. Guarded prognosis. On exam vital signs are stable. Cardio S1, S2 are muffled. Respiratory system shows diminished breath sounds at the bases with no wheezing or rhonchi noted. Abdomen is soft and nontender. Nervous system shows no focal deficits. Please refer to medication reconciliation sheet for a list of medications. The impression and plan of care has been dictated by Zora Booth, nurse practitioner as directed. MD Colton I have performed a history and examination and MDM of this patient, discussed the same with the dictator, and agree with the dictator's assessment and plan as written ,documented as a scribe. Based on total visit time, I have performed more than 50% of the visit. Any additional findings or plans will be noted. Patient Condition at Discharge: Stable Plan - Discharge Summary Discharge Rx Participant: No New Discharge Prescriptions: New Acetaminophen Tab [Tylenol] 650 mg PO Q6HR PRN tab PRN Reason: Mild Pain Or Fever > 100.5 Ascorbic Acid [Vitamin C] 1,000 mg PO DAILY 30 Days #60 tab HYDROcodone/APAP 5-325MG [[place] 5-325] 1 each PO Q6HR PRN #6 tab PRN Reason: Pain Zinc Sulfate [Orazinc] 220 mg PO DAILY 14 Days #14 cap Continue Folic Acid-Vit B Complex-Vit C [Nephrocaps] 1 cap PO DAILY [place]-Lori 1 tab PO DAILY Lidocaine-Prilocaine Cream [Emla Cream 2.5%/2.5%] 1 applic TOPICAL TUTHSA PRN PRN Reason: PORT ACCESS FOR DIALYSIS Carvedilol [Coreg] 25 mg PO BID Pantoprazole [Protonix] 40 mg PO DAILY Furosemide [Lasix] 80 mg PO SUMOWEFR INSULIN ASPART (NovoLOG) [NovoLOG (formulary)] 10 unit SQ AC-TID INSULIN ASPART (NovoLOG) [NovoLOG (formulary)] See Protocol SQ AC-TID Calcium Acetate [PhosLo] 667 mg PO DAILY Cholecalciferol (Vitamin D3) [Vitamin D3 (5000 Iu)] 125 mcg PO TUTHSA Sevelamer [Renvela] 800 mg PO BID Insulin Glargine,Hum.rec.anlog [Basaglar Kwikpen U-100] 40 unit SQ DAILY Prednisolone Acetate/Pf [Prednisolone Acet 1% Eye Drop] 1 drop RIGHT EYE DAILY PRN PRN Reason: Dry Eye(S) Baclofen 10 mg PO BID PRN PRN Reason: Muscle Pain Discharge Medication List Folic Acid-Vit B Complex-Vit C [Nephrocaps] 1 cap PO DAILY 04/26/19 [History] Lidocaine-Prilocaine Cream [Emla Cream 2.5%/2.5%] 1 applic TOPICAL TUTHSA PRN 12/22/19 [History] [place]-Lori 1 tab PO DAILY 12/22/19 [History] Carvedilol [Coreg] 25 mg PO BID 06/27/20 [History] Furosemide [Lasix] 80 mg PO SUMOWEFR 10/08/20 [History] INSULIN ASPART (NovoLOG) [NovoLOG (formulary)] 10 unit SQ AC-TID 10/08/20 [History] Pantoprazole [Protonix] 40 mg PO DAILY 10/08/20 [History] INSULIN ASPART (NovoLOG) [NovoLOG (formulary)] See Protocol SQ AC-TID 12/25/20 [History] Baclofen 10 mg PO BID PRN 03/01/21 [History] Calcium Acetate [PhosLo] 667 mg PO DAILY 03/01/21 [History] Cholecalciferol (Vitamin D3) [Vitamin D3 (5000 Iu)] 125 mcg PO TUTHSA 07/14/21 [History] Sevelamer [Renvela] 800 mg PO BID 09/05/21 [History] Insulin Glargine,Hum.rec.anlog [Basaglar Kwikpen U-100] 40 unit SQ DAILY 10/28/21 [History] Prednisolone Acetate/Pf [Prednisolone Acet 1% Eye Drop] 1 drop RIGHT EYE DAILY PRN 01/13/22 [History] Acetaminophen Tab [Tylenol] 650 mg PO Q6HR PRN tab 01/15/22 [Rx] Ascorbic Acid [Vitamin C] 1,000 mg PO DAILY 30 Days #60 tab 01/15/22 [Rx] HYDROcodone/APAP 5-325MG [[place] 5-325] 1 each PO Q6HR PRN #6 tab 01/15/22 [Rx] Zinc Sulfate [Orazinc] 220 mg PO DAILY 14 Days #14 cap 01/15/22 [Rx] Follow up Appointment(s)/Referral(s): Sharri Mckeon MD [Primary Care Provider] - 1-2 days Ambulatory/Diagnostic Orders: Complete Blood Count w/diff [LAB.AMB] Time Frame: 3 Days, Location: None Selected Activity/Diet/Wound Care/Special Instructions: [facility] (phone: [phone]) will be your dialysis clinic for a two week period after positive COVID test. Your appointments will be Wednesday, , Wednesday at 8am. Dialysis has reached out to transportation and is waiting to hear back. If no phone call today please call [facility] and talk with Jayleen ([phone]). Activity Limited until follow-up Follow-up with primary care provider and discharge Follow-up with nephrology outpatient Continue taking medications as prescribed Follow-up with pain management Follow-up repeat labs in 2-3 days Continue renal diet Discharge Disposition: HOME SELF-CARE
== END 2022-01-15 16:48 | disposition home or self-care (01) | DRG 177 ==
LOC: EC 09:25 → 6NMEDSUR 12:17 → OBSVTOIN 01-15 10:34
PROVIDERS: ADMIT Hospitalist; ATTEND Hospitalist
PROC: 5A1D70Z Performance of Urinary Filtration, Intermittent, Less than 6 Hours Per Day (ICD-10-PCS; principal; 2022-01-15)
DX: U07.1 COVID-19 (principal); N18.6 End stage renal disease; I12.0 Hypertensive chronic kidney disease with stage 5 chronic kidney disease or end stage renal disease; Z68.41 Body mass index [BMI] 40.0-44.9, adult; J84.9 Interstitial pulmonary disease, unspecified; M89.8X9 Other specified disorders of bone, unspecified site; M79.7 Fibromyalgia; H54.61 Unqualified visual loss, right eye, normal vision left eye; G89.29 Other chronic pain; M51.26 Other intervertebral disc displacement, lumbar region; E11.22 Type 2 diabetes mellitus with diabetic chronic kidney disease; D64.9 Anemia, unspecified; E11.42 Type 2 diabetes mellitus with diabetic polyneuropathy; G47.33 Obstructive sleep apnea (adult) (pediatric); M21.372 Foot drop, left foot; F41.9 Anxiety disorder, unspecified; G56.03 Carpal tunnel syndrome, bilateral upper limbs; J40 Bronchitis, not specified as acute or chronic; E66.9 Obesity, unspecified; Z80.52 Family history of malignant neoplasm of bladder; Z79.899 Other long term (current) drug therapy; Z79.4 Long term (current) use of insulin; Z86.711 Personal history of pulmonary embolism; Z99.2 Dependence on renal dialysis; Z91.010 Allergy to peanuts; Z86.14 Personal history of Methicillin resistant Staphylococcus aureus infection
CPT/HCPCS: 36415; 70450; 71046; 80048; 80053; 81001; 83605; 83735; 83880; 84484; 85025; 85379; 85610; 85652; 85730; 86140; 87635; 90935; 93005; 94760; 96374; 96375; 99285

== ENCOUNTER 2022-07-13 19:01 | Inpatient (IN) | payer MEDICARE, OTHER ==
[2022-07-13] MEDS ORDERED: ACETAMINOPHEN TAB 500 MG TAB PO STA ×2 (19:39→19:53)
[2022-07-13] MEDS ORDERED: LORazepam 1 MG TAB PO STA (19:40)
--- NOTE | 2022-07-13 19:43 | ED ---
General Adult HPI - General Chief complaint: Shortness of Breath Stated complaint: pain Time Seen by Provider: 07/13/22 19:28 Source: patient, RN notes reviewed Mode of arrival: wheelchair Limitations: no limitations - History of Present Illness Initial comments: Patient is a pleasant 51-year-old male presenting to the emergency Department with multiple complaints. Onset of symptoms was 2 days ago. Patient feels achy all over. Patient feels anxious. Patient feels short of breath. Patient has some discomfort in his chest. Patient is unable to describe chest discomfort or state if this is similar deferred to the discomfort throughout his body. Patient is not aware of any fevers. Patient denies history of similar symptoms previously. Patient does take dialysis, last Wednesday. - Related Data Home Medications Medication Instructions Recorded Confirmed Folic Acid-Vit B Complex-Vit C 1 cap PO DAILY 04/26/19 01/13/22 [Nephrocaps] Lidocaine-Prilocaine Cream [Emla 1 applic TOPICAL TUTHSA PRN 12/22/19 01/13/22 Cream 2.5%/2.5%] [place]-Lori 1 tab PO DAILY 12/22/19 01/13/22 carvediloL [Coreg] 25 mg PO BID 06/27/20 01/13/22 Furosemide [Lasix] 80 mg PO SUMOWEFR 10/08/20 01/13/22 INSULIN ASPART (NovoLOG) [NovoLOG 10 unit SQ AC-TID 10/08/20 01/13/22 (formulary)] Pantoprazole [Protonix] 40 mg PO DAILY 10/08/20 01/13/22 INSULIN ASPART (NovoLOG) [NovoLOG See Protocol SQ AC-TID 12/25/20 01/13/22 (formulary)] Baclofen 10 mg PO BID PRN 03/01/21 01/13/22 Calcium Acetate [PhosLo] 667 mg PO DAILY 03/01/21 01/13/22 Cholecalciferol (Vitamin D3) 125 mcg PO TUTHSA 07/14/21 01/13/22 [Vitamin D3 (5000 Iu)] Sevelamer [Renvela] 800 mg PO BID 09/05/21 01/13/22 Insulin Glargine,Hum.rec.anlog 40 unit SQ DAILY 10/28/21 01/13/22 [Basjohn [place] U-100] Prednisolone Acetate/Pf 1 drop RIGHT EYE DAILY PRN 01/13/22 01/13/22 [Prednisolone Acet 1% Eye Drop] Previous Rx's Medication Instructions Recorded Acetaminophen Tab [Tylenol] 650 mg PO Q6HR PRN tab 01/15/22 Ascorbic Acid [Vitamin C] 1,000 mg PO DAILY 30 Days #60 tab 01/15/22 HYDROcodone/APAP 5-325MG [[place] 1 each PO Q6HR PRN #6 tab 01/15/22 5-325] Zinc Sulfate [Orazinc] 220 mg PO DAILY 14 Days #14 cap 01/15/22 Allergies Allergy/AdvReac Type Severity Reaction Status Date / Time peanut Allergy Anaphylaxis Verified 07/13/22 19:22 Review of Systems ROS Statement: Those systems with pertinent positive or pertinent negative responses have been documented in the HPI. ROS Other: All systems not noted in ROS Statement are negative. Constitutional: Reports: as per HPI Eyes: Denies: eye pain ENT: Denies: ear pain Respiratory: Reports: dyspnea. Denies: cough Cardiovascular: Reports: as per HPI, chest pain Endocrine: Reports: fatigue Gastrointestinal: Denies: abdominal pain Genitourinary: Denies: dysuria Musculoskeletal: Denies: back pain Skin: Denies: rash Neurological: Denies: weakness Psychiatric: Reports: as per HPI, anxiety Past Medical History Past Medical History: Diabetes Mellitus, Dialysis, Eye Disorder, Fibromyalgia, Hypertension, Pneumonia, Pulmonary Embolus (PE), Renal Disease, Sleep Apnea/CPAP/BIPAP Additional Past Medical History / Comment(s): IDDM type II, neuropathy bilateral feet, chronic renal failure, anemia, chronic lower back and shoulders pain, herniated lumbar disk, glaucoma R eye, carpal tunnel syndrome bilaterally, bronchitis, PAULA with CPAP. Left drop foot,fistula left upper arm,hemodialysis ,, , History of Any Multi-Drug Resistant Organisms: MRSA Date of last positivie culture/infection: 11/21/12 MDRO Source:: lower back Past Surgical History: Orthopedic Surgery Additional Past Surgical History / Comment(s): Incision and drainage back and R groin r/t abscesses removed, bilateral eye surgery for retinal repair, R eye pedraza rgery for glaucoma-. fistula-left upper arm,cystoscopy with biopsy Past Anesthesia/Blood Transfusion Reactions: Postoperative Nausea & Vomiting (PONV) Additional Past Anesthesia/Blood Transfusion Reaction / Comment(s): pt stated has recieved blood transfusions-no known reaction. Past Psychological History: Anxiety Smoking Status: Never smoker Past Alcohol Use History: None Reported Past Drug Use History: None Reported - Past Family History Brother(s) Family Medical History: Cancer, Deep Vein Thrombosis (DVT) Additional Family Medical History / Comment(s): colon Father Family Medical History: Cancer Additional Family Medical History / Comment(s): Bladder cancer in father. Mother Additional Family Medical History / Comment(s): Mother of brain aneurysm General Exam Limitations: no limitations General appearance: alert, in no apparent distress Head exam: Present: normocephalic Eye exam: Present: normal appearance Neck exam: Present: normal inspection. Absent: meningismus Respiratory exam: Present: normal lung sounds bilaterally Cardiovascular Exam: Present: regular rate, normal rhythm Expanded Peripheral pulses: 2+: Radial (R), Radial (L), Posterior Tibialis (R), Posterior Tibialis (L) GI/Abdominal exam: Present: soft. Absent: tenderness Extremities exam: Present: normal inspection. Absent: pedal edema, calf tenderness Neurological exam: Present: alert Psychiatric exam: Present: normal affect, normal mood Skin exam: Present: normal color Course Vital Signs 07/13/22 07/13/22 19:18 19:39 Temperature 100.6 F H Pulse Rate 103 H Respiratory 22 24 Rate Blood Pressure 121/63 O2 Sat by Pulse 100 Oximetry - Reevaluation(s) Reevaluation #1: 07/13/22 21:30 Case was discussed with Dr. Adler who will admit covering Dr. Ross. Discussion had regarding chest discomfort elevated d-dimer and he would recommend having computed tomography scan done. Case was also discussed with Dr. Medeiros who is comfortable with this and will plan accordingly for dialysis. EKG Findings - EKG Comments: EKG Findings:: Sinus tachycardia 100. SC 165. QRS 97. QT 347. QTC 404. Left axis. Normal QRS. No acute ST change. Medical Decision Making - Medical Decision Making Patient does meet sepsis criteria diagnosed at 10:32 PM. Blood culture and lactic acid and IV antibiotics will be ordered. Patient reevaluated and updated. Case was discussed with Dr. Adler, who will admit covering Dr. Gan. - Lab Data Result diagrams: 07/13/22 20:06 07/13/22 20:06 Lab Results 07/13/22 07/13/22 07/13/22 Range/Units 20:06 20:06 20:06 WBC 7.4 (3.8-10.6) k/uL RBC 4.34 (4.30-5.90) m/uL Hgb 12.8 L (13.0-17.5) gm/dL Hct 39.2 (39.0-53.0) % MCV 90.4 (80.0-100.0) fL MCH 29.6 (25.0-35.0) pg MCHC 32.7 (31.0-37.0) g/dL RDW 12.8 (11.5-15.5) % Plt Count 150 (150-450) k/uL MPV 9.7 Neutrophils % 68 % Lymphocytes % 22 % Monocytes % 6 % Eosinophils % 1 % Basophils % 1 % Neutrophils # 5.0 (1.3-7.7) k/uL Lymphocytes # 1.6 (1.0-4.8) k/uL Monocytes # 0.4 (0-1.0) k/uL Eosinophils # 0.1 (0-0.7) k/uL Basophils # 0.1 (0-0.2) k/uL PT 10.9 (9.0-12.0) sec INR 1.0 (<1.2) APTT 26.5 (22.0-30.0) sec D-Dimer 1.35 H (<0.60) mg/L FEU Sodium 137 (137-145) mmol/L Potassium 4.7 (3.5-5.1) mmol/L Chloride 95 L (98-107) mmol/L Carbon Dioxide 27 (22-30) mmol/L Anion Gap 15 mmol/L BUN 50 H (9-20) mg/dL Creatinine 10.52 H* (0.66-1.25) mg/dL Est GFR (CKD-EPI)AfAm 6 (>60 ml/min/1.73 sqM) Est GFR (CKD-EPI)NonAf 5 (>60 ml/min/1.73 sqM) Glucose 154 H (74-99) mg/dL Plasma Lactic Acid Saman (0.7-2.0) mmol/L Calcium 9.2 (8.4-10.2) mg/dL Total Bilirubin 1.1 (0.2-1.3) mg/dL AST 20 (17-59) U/L ALT 13 (4-49) U/L Alkaline Phosphatase 56 (38-126) U/L Troponin I (0.000-0.034) ng/mL NT-Pro-B Natriuret Pep pg/mL Total Protein 6.9 (6.3-8.2) g/dL Albumin 3.8 (3.5-5.0) g/dL Coronavirus (PCR) (Not Detectd) Influenza Type A RNA (Not Detectd) Influenza Type B (PCR) (Not Detectd) 07/13/22 07/13/22 07/13/22 Range/Units 20:06 20:06 20:06 WBC (3.8-10.6) k/uL RBC (4.30-5.90) m/uL Hgb (13.0-17.5) gm/dL Hct (39.0-53.0) % MCV (80.0-100.0) fL MCH (25.0-35.0) pg MCHC (31.0-37.0) g/dL RDW (11.5-15.5) % Plt Count (150-450) k/uL MPV Neutrophils % % Lymphocytes % % Monocytes % % Eosinophils % % Basophils % % Neutrophils # (1.3-7.7) k/uL Lymphocytes # (1.0-4.8) k/uL Monocytes # (0-1.0) k/uL Eosinophils # (0-0.7) k/uL Basophils # (0-0.2) k/uL PT (9.0-12.0) sec INR (<1.2) APTT (22.0-30.0) sec D-Dimer (<0.60) mg/L FEU Sodium (137-145) mmol/L Potassium (3.5-5.1) mmol/L Chloride (98-107) mmol/L Carbon Dioxide (22-30) mmol/L Anion Gap mmol/L BUN (9-20) mg/dL Creatinine (0.66-1.25) mg/dL Est GFR (CKD-EPI)AfAm (>60 ml/min/1.73 sqM) Est GFR (CKD-EPI)NonAf (>60 ml/min/1.73 sqM) Glucose (74-99) mg/dL Plasma Lactic Acid Saman 1.4 (0.7-2.0) mmol/L Calcium (8.4-10.2) mg/dL Total Bilirubin (0.2-1.3) mg/dL AST (17-59) U/L ALT (4-49) U/L Alkaline Phosphatase (38-126) U/L Troponin I (0.000-0.034) ng/mL NT-Pro-B Natriuret Pep pg/mL Total Protein (6.3-8.2) g/dL Albumin (3.5-5.0) g/dL Coronavirus (PCR) Not Detected (Not Detectd) Influenza Type A RNA Not Detected (Not Detectd) Influenza Type B (PCR) Not Detected (Not Detectd) 07/13/22 07/13/22 Range/Units 20:06 20:06 WBC (3.8-10.6) k/uL RBC (4.30-5.90) m/uL Hgb (13.0-17.5) gm/dL Hct (39.0-53.0) % MCV (80.0-100.0) fL MCH (25.0-35.0) pg MCHC (31.0-37.0) g/dL RDW (11.5-15.5) % Plt Count (150-450) k/uL MPV Neutrophils % % Lymphocytes % % Monocytes % % Eosinophils % % Basophils % % Neutrophils # (1.3-7.7) k/uL Lymphocytes # (1.0-4.8) k/uL Monocytes # (0-1.0) k/uL Eosinophils # (0-0.7) k/uL Basophils # (0-0.2) k/uL PT (9.0-12.0) sec INR (<1.2) APTT (22.0-30.0) sec D-Dimer (<0.60) mg/L FEU Sodium (137-145) mmol/L Potassium (3.5-5.1) mmol/L Chloride (98-107) mmol/L Carbon Dioxide (22-30) mmol/L Anion Gap mmol/L BUN (9-20) mg/dL Creatinine (0.66-1.25) mg/dL Est GFR (CKD-EPI)AfAm (>60 ml/min/1.73 sqM) Est GFR (CKD-EPI)NonAf (>60 ml/min/1.73 sqM) Glucose (74-99) mg/dL Plasma Lactic Acid Saman (0.7-2.0) mmol/L Calcium (8.4-10.2) mg/dL Total Bilirubin (0.2-1.3) mg/dL AST (17-59) U/L ALT (4-49) U/L Alkaline Phosphatase (38-126) U/L Troponin I 0.021 (0.000-0.034) ng/mL NT-Pro-B Natriuret Pep 470 pg/mL Total Protein (6.3-8.2) g/dL Albumin (3.5-5.0) g/dL Coronavirus (PCR) (Not Detectd) Influenza Type A RNA (Not Detectd) Influenza Type B (PCR) (Not Detectd) - Radiology Data Radiology results: report reviewed (CT angiogram of the chest shows right lower lobe infiltrate. No pulmonary embolism.), image reviewed (Chest x-ray shows likely atelectasis.) Critical Care Time Critical Care Time: Yes Total Critical Care Time: 33 Disposition Clinical Impression: Pneumonia, Sepsis, End stage renal disease Disposition: ADMITTED IP TO THIS HOSP Is patient prescribed a controlled substance at d/c from ED?: No Referrals: Sharri Mckeon MD [Primary Care Provider] - 1-2 days Time of Disposition: 22:33
[2022-07-13 20:18] LABS: Basophils # (A) 0.1 k/uL (0-0.2); Basophils % (A) 1 %; Eosinophils # (A) 0.1 k/uL (0-0.7); Eosinophils % (A) 1 %; HCT 39.2 % (39.0-53.0); HGB 12.8 gm/dL (13.0-17.5); Lymphocytes # (A) 1.6 k/uL (1.0-4.8); Lymphocytes % (A) 22 %; MCH 29.6 pg (25.0-35.0); MCHC 32.7 g/dL (31.0-37.0); MCV 90.4 fL (80.0-100.0); Mean Platelet Volume 9.7; Monocytes # (A) 0.4 k/uL (0-1.0); Monocytes % (A) 6 %; Neutrophils % (A) 68 %; Platelet Count 150 k/uL (150-450); RBC 4.34 m/uL (4.30-5.90); RDW 12.8 % (11.5-15.5); WBC 7.4 k/uL (3.8-10.6)
[2022-07-13 20:25] LABS: Albumin 3.8 g/dL (3.5-5.0); Calcium 9.2 mg/dL (8.4-10.2); Potassium 4.7 mmol/L (3.5-5.1); Total Bilirubin 1.1 mg/dL (0.2-1.3); Total Protein 6.9 g/dL (6.3-8.2)
[2022-07-13 20:31] LABS: Partial Thromboplastin Time 26.5 sec (22.0-30.0); Prothrombin Time 10.9 sec (9.0-12.0)
--- NOTE | 2022-07-13 21:25 | XR ---
EXAMINATION TYPE: XR chest 2V DATE OF EXAM: 07/13/2022 COMPARISON: 01/13/2022 HISTORY: Fever TECHNIQUE: FINDINGS: There is poor inspiration with crowding of the lung markings. Heart size is normal. No hear t failure seen. There are chest leads. IMPRESSION: Poor inspiration with atelectasis at the lung bases that is new compared to old exam. No obvious heart failure.
[2022-07-13] MEDS ORDERED: methylPREDNISolone SOD SUCCI 125 MG/2 ML VIAL IV STA (21:36)
[2022-07-13] MEDS ORDERED: FAMOTIDINE 20 MG/2 ML VIAL IV STA (21:36)
[2022-07-13] MEDS ORDERED: diphenhydrAMINE 50 MG/ML 1 ML VIAL IVP STA (21:36)
--- NOTE | 2022-07-13 22:25 | CT ---
EXAMINATION TYPE: CT angio chest DATE OF EXAM: 07/13/2022 COMPARISON: None HISTORY: chest pain and body aches CT DLP: 892.8 mGycm Automated exposure control for dose reduction was used. CONTRAST: Performed with IV Contrast, patient injected with 80 mL of Isovue 370. There are 3-D postprocess images. There is airspace consolidation and atelectasis in the right paraspinal right lower lobe. The other l kiara bryant are fairly clear. There is no mediastinal adenopathy. There are no hilar masses. Heart siz e is normal. No pericardial effusion. The thoracic spine is intact. No compression fracture. Sternum is intact. There is no evidence of filling defect in the pulmonary arteries. Upper abdominal soft tissues are in tact. IMPRESSION: Right lower lobe infiltrate and atelectasis consistent with pneumonia. No evidence of pulmonary embol ism. Normal heart.
[2022-07-13] MEDS ORDERED: PNEUMONIA PROTOCOL UTILIZED 1 EACH MISC PO PRN (22:33)
[2022-07-13] MEDS ORDERED: AZITHROMYCIN 500 MG in SODIUM CHLORIDE 0.9% 250 ML IVPB STA (22:33)
[2022-07-13] MEDS ORDERED: traMADol 50 MG TAB PO STA (22:36)
[2022-07-13] MEDS ORDERED: ONDANSETRON 4 MG/2 ML VIAL IVP PRN (23:52)
[2022-07-14] MEDS ORDERED: ACETAMINOPHEN TAB 325 MG TAB PO PRN
[2022-07-14] MEDS: SODIUM CHLORIDE 0.9% 1,000 ML IV SCH ×2 (00:09→23:46)
[2022-07-14] MEDS: PANTOPRAZOLE 40 MG/10 ML VIAL IVP SCH ×2 (00:10→09:08)
[2022-07-14 07:22] LABS: Glucose,Whole Blood 295 mg/dL (70-110)
--- NOTE | 2022-07-14 08:24 | XR ---
EXAMINATION TYPE: XR chest 2V DATE OF EXAM: 07/14/2022 6:28 AM COMPARISON: Chest radiographs from 07/13/2022 TECHNIQUE: XR chest 2V Frontal and lateral views of the chest. CLINICAL INDICATION:Male, 51 years old with history of pneumonia; FINDINGS: Lungs/Pleura: There is no evidence of pleural effusion, focal consolidation, or pneumothorax. Pulmonary vascularity: Unremarkable. Heart/mediastinum: Cardiomediastinal silhouette is unremarkable. Musculoskeletal: No acute osseous pathology. IMPRESSION: No acute cardiopulmonary disease/process. No evidence of airspace opacity, finding previous exam is l ikely due to low lung volumes..
--- NOTE | 2022-07-14 08:30 | P.NPCON ---
History of Present Illness - Reason for Consult end stage renal disease - History of Present Illness Reason for consultation: End-stage renal disease History of present illness: Patient is a 51-year-old male seen in renal consultation for end-stage renal disease. He is maintained on hemodialysis on Wednesday schedule via left approach would AV fistula. Patient states when he was having dialysis yesterday he developed an adrenaline penaloza. He felt everything in his body was running fast. He also admits to low-grade fever. Patient did have a temperature of 100F last night. Blood pressure stable. He did complain of shortness of breath but not improved. CTA was done which showed no evidence of PE. However right lower lobe pneumonia was noted. He is currently receiving antibiotics. He is being followed by pulmonology. Cultures are pending. Denies vomiting or diarrhea. Denies abdominal pain. He tested negative for influenza and coronavirus. Patient has long-standing history of diabetes. Vital signs are stable. General: Awake. No acute distress. HEENT: Head exam is unremarkable. LUNGS:Breath sounds decreased. HEART: Rate and Rhythm are regular. ABDOMEN: Soft, no distention. EXTREMITITES: No edema. Past Medical History Past Medical History: Diabetes Mellitus, Dialysis, Eye Disorder, Fibromyalgia, Hypertension, Pneumonia, Pulmonary Embolus (PE), Renal Disease, Sleep Apnea/CPAP/BIPAP Additional Past Medical History / Comment(s): IDDM type II, neuropathy bilateral feet, chronic renal failure, anemia, chronic lower back and shoulders pain, herniated lumbar disk, glaucoma R eye, carpal tunnel syndrome bilaterally, bronchitis, PAULA with CPAP. Left drop foot,fistula left upper arm,hemodialysis , History of Any Multi-Drug Resistant Organisms: MRSA Date of last positivie culture/infection: 11/21/12 MDRO Source:: lower back Past Surgical History: Orthopedic Surgery Additional Past Surgical History / Comment(s): Incision and drainage back and R groin r/t abscesses removed, bilateral eye surgery for retinal repair, R eye surgery for glaucoma-. fistula-left upper arm,cystoscopy with biopsy Past Anesthesia/Blood Transfusion Reactions: Postoperative Nausea & Vomiting (PONV) Additional Past Anesthesia/Blood Transfusion Reaction / Comment(s): pt stated has recieved blood transfusions-no known reaction. Past Psychological History: Anxiety Additional Psychological History / Comment(s): . Smoking Status: Never smoker Past Alcohol Use History: None Reported Past Drug Use History: None Reported - Past Family History Brother(s) Family Medical History: Cancer, Deep Vein Thrombosis (DVT) Additional Family Medical History / Comment(s): colon Father Family Medical History: Cancer Additional Family Medical History / Comment(s): Bladder cancer in father. Mother Additional Family Medical History / Comment(s): Mother of brain aneurysm Medications and Allergies Home Medications Medication Instructions Recorded Confirmed Type carvediloL [Coreg] 25 mg PO BID 06/27/20 07/13/22 History Furosemide [Lasix] 80 mg PO DAILY 10/08/20 07/13/22 History Pantoprazole [Protonix] 40 mg PO DAILY 10/08/20 07/13/22 History Calcium Acetate [PhosLo] 1,334 mg PO DAILY 03/01/21 07/13/22 History Sevelamer [Renvela] 3,200 mg PO BID-W/MEALS 09/05/21 07/13/22 History Insulin Glargine,Hum.rec.anlog 40 unit SQ DAILY 10/28/21 07/13/22 History [Basaglar Kwikpen U-100] Dulaglutide [Trulicity] 0.75 mg SQ WE 07/13/22 07/13/22 History Insulin Aspart [NovoLOG Flexpen] 10 units SQ AC-TID 07/13/22 07/13/22 History Nephro-Lori 1 tab PO DAILY 07/13/22 07/13/22 History Allergies Allergy/AdvReac Type Severity Reaction Status Date / Time peanut Allergy Anaphylaxis Verified 07/13/22 22:46 Physical Exam Vitals: Vital Signs Temp Pulse Pulse Resp BP BP Pulse Ox 07/14/22 05:00 98.6 F 98 20 139/80 94 L 07/13/22 23:45 100.0 F H 101 H 20 127/73 92 L 07/13/22 23:00 98.9 F 99 22 155/90 97 07/13/22 22:00 100 20 154/92 94 L 07/13/22 19:39 24 07/13/22 19:18 100.6 F H 103 H 22 121/63 100 Intake and Output 07/13/22 07/14/22 07/14/22 22:59 06:59 14:59 Intake Total 0 Output Total 400 Balance -400 Intake: Oral 0 Output: Urine 400 Other: Weight 150 kg 150 kg Results - Lab Results Most recent lab results Calcium 9.2 mg/dL (8.4-10.2) 07/13/22 20:06 07/13/22 20:06 07/13/22 20:06 Assessment and Plan Plan: Assessment: 1. End-stage renal disease maintained on hemodialysis on Wednesday schedule via left upper extremity AV fistula. 2. Pneumonia maintained on antibiotics. Chronic kidney disease mineral bone disease. 4. Diabetes mellitus. 5. Hypertension with chronic kidney disease. Currently stable. Plan: Hemodialysis today. Follow-up cultures. Check phosphorus level. Thank you for the consultation. I will continue to follow the patient with you during his hospital stay.
[2022-07-14] MEDS: AZITHROMYCIN 500 MG TAB PO SCH (09:08)
[2022-07-14] MEDS ORDERED: DEXTROSE 50% SYRINGE 50 ML IVP PRN ×2 (10:03)
[2022-07-14] MEDS: INSULIN DETEMIR (LEVEMIR) 100 UNIT/ML SYR SQ SCH (11:09)
--- NOTE | 2022-07-14 11:16 | P.CNPUL ---
History of Present Illness Consult date: 07/14/22 Requesting physician: Devan Adler Reason for consult: dyspnea, abnormal CXR/CT Chief complaint: Acute on chronic pain, cough History of present illness: This is a very pleasant 51-year-old male patient with a known history of diabetes mellitus, hypertension, chronic renal failure receiving hemodialysis on Wednesday is, chronic pain syndrome, fibromyalgia, hype diabetic neuropathy obstructive sleep apnea utilizing CPAP, nonsmoker. He presented here to the emergency room yesterday with acute on chronic pain state his pain had been worse mostly in his back steps and legs. This started while he was at dialysis this past Wednesday07/10/2022 and he did have a cough and congestion. No phlegm. No fever. No nausea vomiting or diarrhea. He did have complaints of headache. Chest x-ray reveals poor inspiratory effort with atelectasis at lung bases more so on the right lung base. CT angiogram ruled out pulmonary embolism. There was a right lower lobe infiltrate/atelectasis. He is seen today in consultation on the regular medical floor. He is currently resting quite comfortably in bed. He was febrile at 100.6 last evening. Currently afebrile. Maintaining O2 saturations in the 90s on room air. White count 7.4. Hemoglobin 12.8. D-dimer 1.35. Sodium 137. Potassium 4.7. BUN 50. Creatinine 10.5. Glucose 154. ProBNP 470. Current virus by PCR not detected. Influenza screen negative. Procalcitonin pending. He was initiated on ceftriaxone and azithromy hipolito. Review of Systems REVIEW OF SYSTEMS: CONSTITUTIONAL: Denies any recent significant weight loss or weight gain. EYES: Denies change in vision. EARS, NOSE, MOUTH, THROAT: Positive for headaches, denies sore throat. CARDIOVASCULAR: Denies chest pain, palpitations or syncopal episodes. RESPIRATORY: Positive for cough, congestion no hemoptysis. GASTROINTESTINAL: Denies change in appetite, denies abdominal pain GENITOURINARY: Denies hematuria, denies infections. MUSKULOSKELETAL: Positive for acute on chronic pain, denies swelling. INTEGUMENTARY: Denies rash, denies eczema. NEUROLOGICAL: Denies recent memory loss, no recent seizure activity. PSYCHIATRIC: Denies anxiety, denies depression. HEMATOLOGIC/LYMPHATIC: Denies anemia, denies enlarged lymph nodes. Past Medical History Past Medical History: Diabetes Mellitus, Dialysis, Eye Disorder, Fibromyalgia, Hypertension, Pneumonia, Pulmonary Embolus (PE), Renal Disease, Sleep Apnea/CPAP/BIPAP Additional Past Medical History / Comment(s): IDDM type II, neuropathy bilateral feet, chronic renal failure, anemia, chronic lower back and shoulders pain, herniated lumbar disk, glaucoma R eye, carpal tunnel syndrome bilaterally, bronchitis, PAULA with CPAP. Left drop foot,fistula left upper arm,hemodialysis ,, , History of Any Multi-Drug Resistant Organisms: MRSA Date of last positivie culture/infection: 11/21/12 MDRO Source:: lower back Past Surgical History: Orthopedic Surgery Additional Past Surgical History / Comment(s): Incision and drainage back and R groin r/t abscesses removed, bilateral eye surgery for retinal repair, R eye surgery for glaucoma-. fistula-left upper arm,cystoscopy with biopsy Past Anesthesia/Blood Transfusion Reactions: Postoperative Nausea & Vomiting (PONV) Additional Past Anesthesia/Blood Transfusion Reaction / Comment(s): pt stated has recieved blood transfusions-no known reaction. Past Psychological History: Anxiety Additional Psychological History / Comment(s): . Smoking Status: Never smoker Past Alcohol Use History: None Reported Past Drug Use History: None Reported - Past Family History Brother(s) Family Medical History: Cancer, Deep Vein Thrombosis (DVT) Additional Family Medical History / Comment(s): colon Father Family Medical History: Cancer Additional Family Medical History / Comment(s): Bladder cancer in father. Mother Additional Family Medical History / Comment(s): Mother of brain aneurysm Medications and Allergies Home Medications Medication Instructions Recorded Confirmed Type carvediloL [Coreg] 25 mg PO BID 06/27/20 07/13/22 History Furosemide [Lasix] 80 mg PO DAILY 10/08/20 07/13/22 History Pantoprazole [Protonix] 40 mg PO DAILY 10/08/20 07/13/22 History Calcium Acetate [PhosLo] 1,334 mg PO DAILY 03/01/21 07/13/22 History Sevelamer [Renvela] 3,200 mg PO BID-W/MEALS 09/05/21 07/13/22 History Insulin Glargine,Hum.rec.anlog 40 unit SQ DAILY 11/30/21 08/15/22 History [Basaglar Kwikpen U-100] Dulaglutide [Trulicity] 0.75 mg SQ WE 07/13/22 07/13/22 History Insulin Aspart [NovoLOG Flexpen] 10 units SQ AC-TID 07/13/22 07/13/22 History Nephro-Lori 1 tab PO DAILY 07/13/22 07/13/22 History Allergies Allergy/AdvReac Type Severity Reaction Status Date / Time peanut Allergy Anaphylaxis Verified 07/13/22 22:46 Physical Exam Vitals: Vital Signs Temp Pulse Pulse Resp BP BP Pulse Ox 07/14/22 05:00 98.6 F 98 20 139/80 94 L 07/13/22 23:45 100.0 F H 101 H 20 127/73 92 L 07/13/22 23:00 98.9 F 99 22 155/90 97 07/13/22 22:00 100 20 154/92 94 L 07/13/22 19:39 24 07/13/22 19:18 100.6 F H 103 H 22 121/63 100 Intake and Output 07/13/22 07/14/22 07/14/22 22:59 06:59 14:59 Intake Total 0 Output Total 400 Balance -400 Intake: Oral 0 Output: Urine 400 Other: Voiding Method Urinal Weight 150 kg 150 kg GENERAL EXAM: Alert, very pleasant 51-year-old male patient, obese, on room air, comfortable in no apparent distress. HEAD: Normocephalic. EYES: Normal reaction of pupils, equal size. NOSE: Clear with pink turbinates. THROAT: No erythema or exudates. NECK: No masses, no JVD. CHEST: No chest wall deformity. LUNGS: Equal air entry with crackles in the right base. CVS: S1 and S2 normal with no audible murmur, regular rhythm. ABDOMEN: No hepatosplenomegaly, normal bowel sounds, no guarding or rigidity. SPINE: No scoliosis or deformity SKIN: No rashes CENTRAL NERVOUS SYSTEM: No focal deficits, tone is normal in all 4 extremities. EXTREMITIES: AV fistula to the left upper extremity There is no peripheral e marquis. No clubbing, no cyanosis. Peripheral pulses are intact. Results - Laboratory Findings CBC and BMP: 07/13/22 20:06 07/13/22 20:06 PT/INR, D-dimer PT 10.9 sec (9.0-12.0) 07/13/22 20:06 INR 1.0 (<1.2) 07/13/22 20:06 D-Dimer 1.35 mg/L FEU (<0.60) H 07/13/22 20:06 Abnormal lab findings: Abnormal Labs 07/13/22 07/13/22 07/13/22 20:06 20:06 20:06 Hgb 12.8 L D-Dimer 1.35 H Chloride 95 L BUN 50 H Creatinine 10.52 H* Glucose 154 H POC Glucose (mg/dL) 07/14/22 07:20 Hgb D-Dimer Chloride BUN Creatinine Glucose POC Glucose (mg/dL) 295 H - Diagnostic Findings Chest x-ray: image reviewed CT scan - chest: image reviewed Assessment and Plan Assessment: Community-acquired pneumonia more so on the right lung base. Currently on azithromycin and ceftriaxone. Pro-calcitonin pending Febrile illness secondary to above Acute on chronic pain syndrome including back, hips and legs History of fibromyalgia History of chronic renal failure on hemodialysis Wednesday Diabetes mellitus Diabetic neuropathy Hypertension Plan: The patient was seen and evaluated Chest x-ray, CAT scan, labs and medications reviewed Continue ceftriaxone and azithromycin Follow-up chest x-ray in a.m. We will continue to follow and make further recommendations based on his clinical status I have personally seen and examined the patient, performed the documentation and the assessment and plan as written. Number of minutes spent on the visit: 20.
[2022-07-14 11:32] LABS: Glucose,Whole Blood 337 mg/dL (70-110)
[2022-07-14] MEDS: SEVELAMER 800 MG TAB PO SCH ×2 (12:49→18:02)
[2022-07-14] MEDS: carvediloL 12.5 MG TAB PO SCH ×2 (12:49→18:02)
[2022-07-14] MEDS: FOLIC ACID-VIT B COMPLEX-VIT C 1 CAP PO SCH (13:38)
[2022-07-14] MEDS: INSULIN ASPART (NovoLOG) 100 UNIT/ML VIAL SQ SCH ×5 (13:38→21:47)
[2022-07-14] MEDS: PANTOPRAZOLE 40 MG TABLET PO SCH (15:09)
[2022-07-14] MEDS: CALCIUM ACETATE 667 MG TAB PO SCH (15:09)
[2022-07-14 17:09] LABS: Glucose,Whole Blood 299 mg/dL (70-110)
[2022-07-14] MEDS: HYDROcodone/APAP 7.5-325MG 1 EACH TAB PO PRN (18:19)
[2022-07-14 21:17] LABS: Glucose,Whole Blood 231 mg/dL (70-110)
--- NOTE | 2022-07-15 00:55 | P.HPIM ---
History of Present Illness H&P Date: 07/14/22 Chief Complaint: Generalized pain Patient is a 51-year-old male with a known history of ESRD on hemodialysis TTS, hypertension, diabetes type 2, history of PE, obstructive sleep apnea on CPAP, diabetic peripheral neuropathy diabetes type 2, chronic low back pain, anxiety and other medical problems presents to ER with complaints of cough congestion and generalized pain. Patient was febrile on admission with T-max of 100.6 and also tachycardic. Saturating 94% on room air. Denied any complaints of cough or sputum production. No nausea vomiting abdominal pain or diarrhea. Denied any recent illnesses. Chest x-ray showed poor inspiration with atelectasis at the lung bases that is new compared to old exam. No obvious heart failure. Laboratory test showed WBC 7.4 hemoglobin 12.8 and platelets 150 D-dimer level is 1.35 Sodium 137 potassium 4.7 chloride 95 bicarb is 27 BUN 15 creatinine 10.5 creatinine blood sugar is 154 lactic acid 1.4 Liver Elevated troponin x1 negative proBNP is 470 Coronavirus PCR not detected Review of Systems Constitutional: Patient denies any fever or chills . Patient does have body aches and generalized weakness. Abdomen: Patient denied any nausea or vomiting or abd. pain Cardiovascular: Patient denies any chest pain or short of breath no palpitations. Respiratory: Does have cough without sputum production. No shortness of breath Neurologic: Patient denied any numbness or tingling headache. Musculoskeletal: Patient denies any complaints of joint swelling or deformity. Skin: Negative Psychiatric: Negative Endocrine: No heat or cold intolerance. No recent weight gain. Genitourinary: No dysuria or hematuria. All other 14 point ROS negative except the above Past Medical History Past Medical History: Diabetes Mellitus, Dialysis, Eye Disorder, Fibromyalgia, Hypertension, Pneumonia, Pulmonary Embolus (PE), Renal Disease, Sleep Apnea/CPAP/BIPAP Additional Past Medical History / Comment(s): IDDM type II, neuropathy bilateral feet, chronic renal failure, anemia, chronic lower back and shoulders pain, herniated lumbar disk, glaucoma R eye, carpal tunnel syndrome bilaterally, bronchitis, PAULA with CPAP. Left drop foot,fistula left upper arm,hemodialysis ,, , History of Any Multi-Drug Resistant Organisms: MRSA Date of last positivie culture/infection: 11/21/12 MDRO Source:: lower back Past Surgical History: Orthopedic Surgery Additional Past Surgical History / Comment(s): Incision and drainage back and R groin r/t abscesses removed, bilateral eye surgery for retinal repair, R eye surgery for glaucoma-. fistula-left upper arm,cystoscopy with biopsy Past Anesthesia/Blood Transfusion Reactions: Postoperative Nausea & Vomiting (PONV) Additional Past Anesthesia/Blood Transfusion Reaction / Comment(s): pt stated has recieved blood transfusions-no known reaction. Past Psychological History: Anxiety Additional Psychological History / Comment(s): . Smoking Status: Never smoker Past Alcohol Use History: None Reported Past Drug Use History: None Reported - Past Family History Brother(s) Family Medical History: Cancer, Deep Vein Thrombosis (DVT) Additional Family Medical History / Comment(s): colon Father Family Medical History: Cancer Additional Family Medical History / Comment(s): Bladder cancer in father. Mother Additional Family Medical History / Comment(s): Mother of brain aneurysm Medications and Allergies Home Medications Medication Instructions Recorded Confirmed Type carvediloL [Coreg] 25 mg PO BID 06/27/20 07/13/22 History Furosemide [Lasix] 80 mg PO DAILY 10/08/20 07/13/22 History Pantoprazole [Protonix] 40 mg PO DAILY 10/08/20 07/13/22 History Calcium Acetate [PhosLo] 1,334 mg PO DAILY 03/01/21 07/13/22 History Sevelamer [Renvela] 3,200 mg PO BID-W/MEALS 09/05/21 07/13/22 History Insulin Glargine,Hum.rec.anlog 40 unit SQ DAILY 10/28/21 07/13/22 History [Basaglar Kwikpen U-100] Dulaglutide [Trulicity] 0.75 mg SQ WE 07/13/22 07/13/22 History Insulin Aspart [NovoLOG Flexpen] 10 units SQ AC-TID 07/13/22 07/13/22 History Nephro-Lori 1 tab PO DAILY 07/13/22 07/13/22 History Allergies Allergy/AdvReac Type Severity Reaction Status Date / Time peanut Allergy Anaphylaxis Verified 07/13/22 22:46 Physical Exam Vitals: Vital Signs Temp Pulse Pulse Resp BP BP Pulse Ox 07/14/22 05:00 98.6 F 98 20 139/80 94 L 07/13/22 23:45 100.0 F H 101 H 20 127/73 92 L 07/13/22 23:00 98.9 F 99 22 155/90 97 07/13/22 22:00 100 20 154/92 94 L 07/13/22 19:39 24 07/13/22 19:18 100.6 F H 103 H 22 121/63 100 Intake and Output 07/13/22 07/14/22 07/14/22 22:59 06:59 14:59 Intake Total 0 Output Total 400 Balance -400 Intake: Oral 0 Output: Urine 400 Other: Voiding Method Urinal Weight 150 kg 150 kg PHYSICAL EXAMINATION: Patient is lying in the bed comfortably, no acute distress, awake alert and oriented.. HEENT: Normocephalic. Neck is supple. Pupils reactive. Nostrils clear. Oral cavity is moist. Neck reveals no JVD, carotid bruits, or thyromegaly. CHEST EXAMINATION: Trachea is central. Symmetrical expansion. Bibasilar diminished sounds no wheezing or rhonchi. CARDIAC: Normal S1, S2 with no gallops. No murmurs ABDOMEN: Soft. Bowel sounds present. Nontender. No organomegaly. No abdominal bruits. Extremities: reveal no edema. No clubbing or cyanosis Neurologically awake, alert, oriented x3 with well-coordinated movements. No focal deficits noted Skin: No rash or skin lesions. Psychiatric: Coperative. Nonsuicidal, Musculoskeletal: No joint swelling or deformity. Normal range of motion. Results CBC & Chem 7: 07/13/22 20:06 07/13/22 20:06 Labs: Abnormal Lab Results - Last 24 Hours (Table) 07/13/22 07/13/22 07/13/22 Range/Units 20:06 20:06 20:06 Hgb 12.8 L (13.0-17.5) gm/dL D-Dimer 1.35 H (<0.60) mg/L FEU Chloride 95 L (98-107) mmol/L BUN 50 H (9-20) mg/dL Creatinine 10.52 H* (0.66-1.25) mg/dL Glucose 154 H (74-99) mg/dL POC Glucose (mg/dL) (70-110) mg/dL 07/14/22 Range/Units 07:20 Hgb (13.0-17.5) gm/dL D-Dimer (<0.60) mg/L FEU Chloride (98-107) mmol/L BUN (9-20) mg/dL Creatinine (0.66-1.25) mg/dL Glucose (74-99) mg/dL POC Glucose (mg/dL) 295 H (70-110) mg/dL Thrombosis Risk Factor Assmnt - DVT/VTE Prophylaxis DVT/VTE Prophylaxis: Pharmacologic Prophylaxis ordered - Choose All That Apply Any of the Below Risk Factors Present?: Yes Each Factor Represents 1 point: Age 41-60 years, Obesity (BMI >25) Each Risk Factor Represents 3 Points: History of DVT/PE Other congenital or acquired thrombophilia - If yes, enter type in comment: No Thrombosis Risk Factor Assessment Total Risk Factor Score: 5 Thrombosis Risk Factor Assessment Level: High Risk Assessment and Plan Assessment: Acute pneumonia with bibasilar infiltrate. Likely community-acquired Generalized body aches and pain ESRD on hemodialysis TTS Hypertension Diabetes type 2 Diabetic peripheral neuropathy Fibromyalgia Obstructive sleep apnea on CPAP at home Bilateral feet diabetic neuropathy Chronic back pain and shoulder pain DVT prophylaxis with heparin subcu Plan: Patient will be continued on Antibiotics in the form of ceftriaxone and azithromycin. Continue with insulin regimen and follow-up CBG before meals and at bedtime. Continue with home medications and pain management. Nephrology and pulmonary is on board. Follow-up procalcitonin level. Time with Patient: Greater than 30
[2022-07-15 06:49] LABS: Glucose,Whole Blood 250 mg/dL (70-110)
[2022-07-15] MEDS: HEPARIN SODIUM,PORCINE/PF 5,000 UNIT/0.5 ML SYRINGE SQ SCH ×2 (08:10→20:17)
[2022-07-15] MEDS: SEVELAMER 800 MG TAB PO SCH ×2 (08:10→18:26)
[2022-07-15] MEDS: carvediloL 12.5 MG TAB PO SCH ×2 (08:10→18:26)
[2022-07-15] MEDS: PANTOPRAZOLE 40 MG TABLET PO SCH (08:11)
[2022-07-15] MEDS: INSULIN DETEMIR (LEVEMIR) 100 UNIT/ML SYR SQ SCH (08:11)
[2022-07-15] MEDS: INSULIN ASPART (NovoLOG) 100 UNIT/ML VIAL SQ SCH ×7 (08:11→20:16)
[2022-07-15] MEDS: AZITHROMYCIN 500 MG TAB PO SCH (08:11)
[2022-07-15] MEDS: FOLIC ACID-VIT B COMPLEX-VIT C 1 CAP PO SCH (08:12)
[2022-07-15 09:14] LABS: Glucose,Whole Blood 289 mg/dL (70-110)
--- NOTE | 2022-07-15 10:33 | P.PN ---
Subjective Patient is seen in follow-up for end-stage renal disease. He is maintained on hemodialysis on Wednesday schedule. Resting in bed. Denies cough. No chest pain or shortness of breath. On room air. No vomiting or diarrhea. States he's been feeling anxious lately. Vital signs are stable. General: Awake. No acute distress. HEENT: Head exam is unremarkable. LUNGS: Breath sounds decreased. HEART: Rate and Rhythm are regular. ABDOMEN: Soft, no distention. EXTREMITITES: No edema. Objective - Vital Signs Vital signs: Vital Signs Temp 97.4 F L 07/15/22 05:00 Pulse 92 07/15/22 05:00 Resp 16 07/15/22 05:00 BP 112/74 07/15/22 05:00 Pulse Ox 94 L 07/15/22 05:00 FiO2 Intake & Output 07/14/22 07/15/22 07/15/22 18:59 06:59 18:59 Intake Total 240 Output Total 1999 200 Balance -1760 -200 Intake: Intake, IV Titration 240 Amount Sodium Chloride 0.9% 1, 240 000 ml @ 20 mls/hr IV . Q24H [facility] Rx#:[id number] Output: Urine 200 Hemodialysis 2000 Other: Voiding Method Urinal Toilet Urinal - Labs CBC & Chem 7: 07/13/22 20:06 07/13/22 20:06 Labs: Abnormal Lab Results - Last 24 Hours (Table) 07/14/22 07/14/22 07/14/22 Range/Units 10:35 11:30 17:07 POC Glucose (mg/dL) 337 H 299 H (70-110) mg/dL Procalcitonin 0.59 H (0.02-0.09) ng/mL 07/14/22 07/15/22 07/15/22 Range/Units 21:15 06:48 09:13 POC Glucose (mg/dL) 231 H 250 H 289 H (70-110) mg/dL Procalcitonin (0.02-0.09) ng/mL Microbiology - Last 24 Hours (Table) 07/13/22 20:05 Blood Culture - Preliminary Blood No Growth after 24 hours 07/13/22 19:50 Blood Culture - Preliminary Blood No Growth after 24 hours Assessment and Plan Plan: Assessment: 1. End-stage renal disease maintained on hemodialysis on Wednesday schedule via left upper extremity AV fistula. 2. Pneumonia maintained on antibiotics. 3. Chronic kidney disease mineral bone disease. On phosphate binders. 4. Diabetes mellitus. 5. Hypertension with chronic kidney disease. Currently stable. Plan: Hemodialysis tomorrow. Tolerated 2 L ultrafiltration yesterday. Follow-up cultures. Follow up phosphorus level. Primary team to address anxiety. Discussed with nurse.
[2022-07-15 10:58] LABS: Basophils # (A) 0.01 X 10*3/uL (0.00-0.10); Basophils % (A) 0.1 %; Eosinophils # (A) 0.01 X 10*3/uL (0.04-0.35); Eosinophils % (A) 0.1 %; HCT 36.6 % (39.6-50.0); HGB 12.3 g/dL (13.0-17.0); Immature Grans, Automated 0.3 %; Lymphocytes % (A) 16.2 %; MCHC 33.6 g/dL (32.0-37.0); MCV 89.3 fL (80.0-97.0); Mean Platelet Volume 11.6 fL (9.5-12.2); Monocytes # (A) 0.48 X 10*3/uL (0.20-1.00); Monocytes % (A) 5.6 %; NRBC Per 100 WBC 0 /100 WBCS (0.0-0.0); Neutrophils # (A) 6.71 X 10*3/uL (1.80-7.70); Neutrophils % (A) 77.7 %; Platelet Count 155 X 10*3/uL (140-440); RDW 12.5 % (11.5-14.5); WBC 8.64 X 10*3/uL (4.50-10.00)
[2022-07-15 11:09] LABS: Phosphorus 5.4 mg/dL (2.4-5.1)
[2022-07-15 11:26] LABS: Glucose,Whole Blood 230 mg/dL (70-110)
--- NOTE | 2022-07-15 11:40 | P.PN ---
Subjective Progress Note Date: 07/15/22 Principal diagnosis: Dyspnea, cough This is a very pleasant 51-year-old male patient with a known history of diabetes mellitus, hypertension, chronic renal failure receiving hemodialysis on Wednesday is, chronic pain syndrome, fibromyalgia, hype diabetic neuropathy obstructive sleep apnea utilizing CPAP, nonsmoker. He presented here to the emergency room yesterday with acute on chronic pain state his pain had been worse mostly in his back steps and legs. This started while he was at dialysis this past Wednesday07/10/2022 and he did have a cough and congestion. No phlegm. No fever. No nausea vomiting or diarrhea. He did have complaints of headache. Chest x-ray reveals poor inspiratory effort with atelectasis at lung bases more so on the right lung base. CT angiogram ruled out pulmonary embolism. There was a right lower lobe infiltrate/atelectasis. He is seen today in consultation on the regular medical floor. He is currently resting quite comfortably in bed. He was febrile at 100.6 last evening. Currently afebrile. Maintaining O2 saturations in the 90s on room air. White count 7.4. Hemoglobin 12.8. D-dimer 1.35. Sodium 137. Potassium 4.7. BUN 50. Creatinine 10.5. Glucose 154. ProBNP 470. Current virus by PCR not detected. Influenza screen negative. Procalcitonin pending. He was initiated on ceftriaxone and azithromy hipolito. On 07/15/2022 patient seen in follow-up on general medical floor. He is resting comfortably in bed, still has a cough which is nonproductive, and patient has not been able to produce phlegm specimen for culture. But overall he states he is feeling better, breathing comfortable, he is on room air, satting 94%, no fever or chills, blood pressure is been stable. He was dialyzed yesterday and 2 L of fluid was removed with hemodialysis. Procalcitonin level came back at 0.59. Patient continues on empiric antibiotics with Rocephin. Blood cultures have shown no growth thus far. Today's labs have been noted, with some Compazine 0.6, hemoglobin is 12.3. BMP is still pending for today, COVID-19 influenza A and B were all negative. Objective - Vital Signs Vital signs: Vital Signs Temp 97.4 F L 07/15/22 05:00 Pulse 92 07/15/22 05:00 Resp 16 07/15/22 05:00 BP 112/74 07/15/22 05:00 Pulse Ox 94 L 07/15/22 05:00 FiO2 Intake & Output 07/14/22 07/15/22 07/15/22 18:59 06:59 18:59 Intake Total 240 Output Total 1999 200 Balance -1760 -200 Intake: Intake, IV Titration 240 Amount Sodium Chloride 0.9% 1, 240 000 ml @ 20 mls/hr IV . Q24H [facility] Rx#:[id number] Output: Urine 200 Hemodialysis 2000 Other: Voiding Method Urinal Toilet Urinal - Exam GENERAL EXAM: Alert, very pleasant, 51-year-old -[place] male resting comfortably in bed on room air with a pulse ox of 94%, comfortable in no apparent distress. HEAD: Normocephalic/atraumatic. EYES: Normal reaction of pupils, equal size. Conjunctiva pink, sclera white. NOSE: Clear with pink turbinates. THROAT: No erythema or exudates. NECK: No masses, no JVD, no thyroid enlargement, no adenopathy. CHEST: No chest wall deformity. Symmetrical expansion. LUNGS: Equal air entry with no crackles, wheeze, rhonchi or dullness. CVS: Regular rate and rhythm, normal S1 and S2, no gallops, no murmurs, no rubs ABDOMEN: Soft, nontender. No hepatosplenomegaly, normal bowel sounds, no guarding or rigidity. EXTREMITIES: No clubbing, no edema, no cyanosis, 2+ pulses and upper and lower extremities. MUSCULOSKELETAL: Muscle strength and tone normal. SPINE: No scoliosis or deformity SKIN: No rashes CENTRAL NERVOUS SYSTEM: Alert and oriented -3. No focal deficits, tone is normal in all 4 extremities. PSYCHIATRIC: Alert and oriented -3. Appropriate affect. Intact judgment and insight. - Labs CBC & Chem 7: 07/15/22 06:59 07/13/22 20:06 Labs: Abnormal Lab Results - Last 24 Hours (Table) 07/14/22 07/14/22 07/14/22 Range/Units 10:35 11:30 17:07 RBC (4.40-5.60) X 10*6/uL Hgb (13.0-17.0) g/dL Hct (39.6-50.0) % Eosinophils # (0.04-0.35) X 10*3/uL POC Glucose (mg/dL) 337 H 299 H (70-110) mg/dL Phosphorus (2.4-5.1) mg/dL Procalcitonin 0.59 H (0.02-0.09) ng/mL 07/14/22 07/15/22 07/15/22 Range/Units 21:15 06:48 06:59 RBC (4.40-5.60) X 10*6/uL Hgb (13.0-17.0) g/dL Hct (39.6-50.0) % Eosinophils # (0.04-0.35) X 10*3/uL POC Glucose (mg/dL) 231 H 250 H (70-110) mg/dL Phosphorus 5.4 H (2.4-5.1) mg/dL Procalcitonin (0.02-0.09) ng/mL 07/15/22 07/15/22 07/15/22 Range/Units 06:59 09:13 11:23 RBC 4.10 L (4.40-5.60) X 10*6/uL Hgb 12.3 L (13.0-17.0) g/dL Hct 36.6 L (39.6-50.0) % Eosinophils # 0.01 L (0.04-0.35) X 10*3/uL POC Glucose (mg/dL) 289 H 230 H (70-110) mg/dL Phosphorus (2.4-5.1) mg/dL Procalcitonin (0.02-0.09) ng/mL Microbiology - Last 24 Hours (Table) 07/13/22 20:05 Blood Culture - Preliminary Blood No Growth after 24 hours 07/13/22 19:50 Blood Culture - Preliminary Blood No Growth after 24 hours Assessment and Plan Plan: Community-acquired pneumonia more so on the right lung base. Currently on azithromycin and ceftriaxone. Pro-calcitonin mildly elevated at 0.59 Febrile illness secondary to above Acute on chronic pain syndrome including back, hips and legs History of fibromyalgia History of chronic renal failure on hemodialysis Wednesday Diabetes mellitus Diabetic neuropathy Hypertension Plan: Continue current antibiotics Clinically patient is feeling better Follow-up chest x-ray in the morning We'll continue to follow his clinical course I have personally seen and examined the patient, performed the documentation and the assessment and plan as written. Number of minutes spent on the visit: [10] Time with Patient: Less than 30
[2022-07-15] MEDS ORDERED: PATIENT'S OWN (Dulaglutide [Trulicity] 0.75 MG/0.5 ML Each) SQ SCH (12:00)
[2022-07-15 12:38] LABS: African American GFR (CKD) 6.1 (60.0-200.0); Anion Gap 16.9 mmol/L (10.00-18.00); BUN/Creat Ratio 5.91 Ratio (12.00-20.00); Blood Urea Nitrogen 60.3 mg/dL (9.0-27.0); Calcium 8.9 mg/dL (8.7-10.3); Carbon Dioxide 24.1 mmol/L (20.0-27.5); Non-African American GFR(CKD) 5.3 (60.0-200.0); Potassium 4.8 mmol/L (3.5-5.5)
[2022-07-15] MEDS: CALCIUM ACETATE 667 MG TAB PO SCH (12:50)
[2022-07-15] MEDS ORDERED: LORazepam 0.5 MG TAB PO PRN (13:18)
[2022-07-15 17:22] LABS: Glucose,Whole Blood 78 mg/dL (70-110)
[2022-07-15 20:16] LABS: Glucose,Whole Blood 93 mg/dL (70-110)
[2022-07-15] MEDS: HYDROcodone/APAP 7.5-325MG 1 EACH TAB PO PRN (23:38)
--- NOTE | 2022-07-16 00:43 | P.PN ---
Subjective Progress Note Date: 07/15/22 Patient is a 51-year-old male with a known history of ESRD on hemodialysis TTS, hypertension, diabetes type 2, history of PE, obstructive sleep apnea on CPAP, diabetic peripheral neuropathy diabetes type 2, chronic low back pain, anxiety and other medical problems presents to ER with complaints of cough congestion and generalized pain. Patient was febrile on admission with T-max of 100.6 and also tachycardic. Saturating 94% on room air. Denied any complaints of cough or sputum production. No nausea vomiting abdominal pain or diarrhea. Denied any recent illnesses. Chest x-ray showed poor inspiration with atelectasis at the lung bases that is new compared to old exam. No obvious heart failure. Laboratory test showed WBC 7.4 hemoglobin 12.8 and platelets 150 D-dimer level is 1.35 Sodium 137 potassium 4.7 chloride 95 bicarb is 27 BUN 15 creatinine 10.5 creatinine blood sugar is 154 lactic acid 1.4 Liver Elevated troponin x1 negative proBNP is 470 Coronavirus PCR not detected 07/15/2022 Patient is seen and evaluated and follow-up being followed by nephrology along with pulmonary as being closely monitored. Patient has history of end-stage renal disease and maintained on Wednesday//Wednesday hemodialysis. Patient is reporting some increased anxiety and requesting something and will add low- dose Ativan as needed. Patient is scheduled to receive hemodialysis tomorrow. Patient currently on room air and maintained on IV antibiotics in the form of ceftriaxone and has completed Zithromax. Patient denies worsening shortness of breath with occasional cough, denies chest pain or palpitations. Patient is afebrile and denies nausea or vomiting and is tolerating diet. Patients blood sugars have been elevated and continued on pre-meal, sliding scale, and long acting and recommend to continue with accuchecks achs and close monitoring. Review of systems: Constitutional: No reports of fatigue, fever, or chills, reports some right facial swelling and tenderness Cardiovascular: No reports of chest pain or palpitations Respiratory: No reports of shortness of breath or cough GI: No reports of nausea, no reports of of vomiting : No reports of dysuria or retention Neurovascular: No reports of generalized weakness All medications have been reviewed Active Medications Acetaminophen (Acetaminophen Tab 325 Mg Tab) 650 mg PO Q6HR PRN PRN Reason: Fever and/ or Pain Hydrocodone Bitart/Acetaminophen (Hydrocodone/Apap 7.5-325mg 1 Each Tab) 1 each PO Q6HR PRN PRN Reason: Pain Last Admin: 07/14/22 18:19 Dose: 1 each Calcium Acetate (Calcium Acetate 667 Mg Tab) 1,334 mg PO W/LUNCH [facility] Last Admin: 07/15/22 12:50 Dose: 1,334 mg Carvedilol (Carvedilol 12.5 Mg Tab) 25 mg PO BID-W/MEALS [facility] Last Admin: 07/15/22 08:10 Dose: 25 mg Dextrose/Water (Dextrose 50% Syringe 50 Ml) 25 ml IVP PER PROTOCOL PRN; Protocol PRN Reason: Hypoglycemia Dextrose/Water (Dextrose 50% Syringe 50 Ml) 50 ml IVP PER PROTOCOL PRN; Protocol PRN Reason: Hypoglycemia Heparin Sodium (Porcine) (Heparin Sodium,Porcine/Pf 5,000 Unit/0.5 Ml Syringe) 5,000 unit SQ Q12HR [facility] Last Admin: 07/15/22 08:10 Dose: 5,000 unit Ceftriaxone Sodium 2 gm/ (Sodium Chloride) 50 mls @ 100 mls/hr IVPB Q24H [facility]; Protocol Stop: 07/17/22 21:29 Last Admin: 07/14/22 21:47 Dose: 100 mls/hr Sodium Chloride (Saline 0.9%) 1,000 mls @ 20 mls/hr IV .Q24H [facility] Last Admin: 07/14/22 23:46 Dose: 20 mls/hr Insulin Aspart (Insulin Aspart (Novolog) 100 Unit/Ml Vial) 0 unit SQ ACHS [facility]; Protocol Last Admin: 07/15/22 12:49 Dose: 4 unit Insulin Aspart (Insulin Aspart (Novolog) 100 Unit/Ml Vial) 10 unit SQ AC-TID [facility] Last Admin: 07/15/22 12:49 Dose: 10 unit Insulin Detemir (Insulin Detemir (Levemir) 100 Unit/Ml Syr) 40 unit SQ DAILY [facility] Last Admin: 07/15/22 08:11 Dose: 40 unit Lorazepam (Lorazepam 0.5 Mg Tab) 0.5 mg PO Q8HR PRN PRN Reason: Anxiety Miscellaneous Information (Pneumonia Protocol Utilized 1 Each Misc) 1 each PO ONCE PRN PRN Reason: Per Protocol Multivit/Ca Carb/B Cmplx/FA/Prenat (Folic Acid-Vit B Complex-Vit C 1 Cap) 1 each PO DAILY [facility] Last Admin: 07/15/22 08:12 Dose: 1 each Patient's Own ( Dulaglutide [ Trulicity] 0.75 Mg/0 .5 Ml Each) 0.75 mg SQ WE [facility] Last Admin: 07/15/22 11:27 Dose: Not Given Ondansetron HCl (Ondansetron 4 Mg/2 Ml Vial) 4 mg IVP Q6HR PRN PRN Reason: Nausea And Vomiting Last Admin: 07/14/22 00:08 Dose: 4 mg Pantoprazole Sodium (Pantoprazole 40 Mg Tablet) 40 mg PO DAILY [facility] Last Admin: 07/15/22 08:11 Dose: 40 mg Sevelamer Carbonate (Sevelamer 800 Mg Tab) 3,200 mg PO BID-W/MEALS [facility] Last Admin: 07/15/22 08:10 Dose: 3,200 mg Sodium Chloride (Sodium Chloride 0.9% Flush 10 Ml Syringe) 10 ml IV BID [facility] Last Admin: 07/15/22 08:13 Dose: Not Given PHYSICAL EXAMINATION: Patient is lying in the bed comfortably, no acute distress, awake alert and oriented.. HEENT: Normocephalic. Neck is supple. Pupils reactive. Nostrils clear. Oral cavity is moist. Neck reveals no JVD, carotid bruits, or thyromegaly. CHEST EXAMINATION: Trachea is central. Symmetrical expansion. Bibasilar diminished sounds no wheezing or rhonchi. CARDIAC: Normal S1, S2 with no gallops. No murmurs ABDOMEN: Soft. Bowel sounds present. Nontender. No organomegaly. No abdominal bruits. Extremities: reveal no edema. No clubbing or cyanosis Neurologically awake, alert, oriented x3 with well-coordinated movements. No focal deficits noted Skin: No rash or skin lesions. Psychiatric: Coperative. Nonsuicidal, Musculoskeletal: No joint swelling or deformity. Normal range of motion. Assessment: Acute pneumonia with bibasilar infiltrate. Likely community-acquired Generalized body aches and pain ESRD on hemodialysis TTS Hypertension Diabetes type 2 Diabetic peripheral neuropathy Fibromyalgia anxiety Obstructive sleep apnea on CPAP at home Bilateral feet diabetic neuropathy Chronic back pain and shoulder pain DVT prophylaxis with heparin subcu Plan: Patient will be continued on Antibiotics in the form of ceftriaxone and azithromycin. Pulmonary and nephrology following. Patient to receive hemodialysis tomorrow on his schedule of //wed. Continue with insulin regimen and follow-up CBG before meals and at bedtime. Patient with some mild anxiety will add low dose ativan prn. Continue with home medications and pain management. Follow-up procalcitonin level was elevated and pulmonary recommending to continue with abx for now. Recommend repeat am labs. Due to multiple complex medical issues, prognosis is guarded. The impression and plan of care has been dictated by Zora Booth, nurse practitioner as directed. Dr. Juanpablo MD I have performed a history and examination and MDM of this patient, discussed the same with the dictator, and agree with the dictator's assessment and plan as written ,documented as a scribe. Based on total visit time, I have performed more than 50% of the visit. Any additional findings or plans will be noted. Objective - Vital Signs Vital signs: Vital Signs Temp 97.4 F L 07/15/22 05:00 Pulse 92 07/15/22 05:00 Resp 16 07/15/22 05:00 BP 112/74 07/15/22 05:00 Pulse Ox 94 L 07/15/22 05:00 FiO2 Intake & Output 07/14/22 07/15/22 07/15/22 18:59 06:59 18:59 Intake Total 240 Output Total 1999 200 Balance -1760 -200 Intake: Intake, IV Titration 240 Amount Sodium Chloride 0.9% 1, 240 000 ml @ 20 mls/hr IV . Q24H [facility] Rx#:[id number] Output: Urine 200 Hemodialysis 1999 Other: Voiding Method Urinal Toilet Urinal - Labs CBC & Chem 7: 07/15/22 06:59 07/15/22 06:59 Labs: Abnormal Lab Results - Last 24 Hours (Table) 07/14/22 07/14/22 07/14/22 Range/Units 10:35 11:30 17:07 POC Glucose (mg/dL) 337 H 299 H (70-110) mg/dL Procalcitonin 0.59 H (0.02-0.09) ng/mL 07/14/22 07/15/22 07/15/22 Range/Units 21:15 06:48 09:13 POC Glucose (mg/dL) 231 H 250 H 289 H (70-110) mg/dL Procalcitonin (0.02-0.09) ng/mL Microbiology - Last 24 Hours (Table) 07/13/22 20:05 Blood Culture - Preliminary Blood No Growth after 24 hours 07/13/22 19:50 Blood Culture - Preliminary Blood No Growth after 24 hours
[2022-07-16] MEDS: SODIUM CHLORIDE 0.9% 1,000 ML IV SCH (03:52)
[2022-07-16 06:22] LABS: African American GFR (CKD) 5 (>60 ml/min/1.73 sqM); Anion Gap 17 mmol/L; Blood Urea Nitrogen 85 mg/dL (9-20); Calcium 8.3 mg/dL (8.4-10.2); Carbon Dioxide 22 mmol/L (22-30); Chloride 96 mmol/L (98-107); Glucose 195 mg/dL (74-99); Non-African American GFR(CKD) 4 (>60 ml/min/1.73 sqM); Potassium 4.4 mmol/L (3.5-5.1); Sodium 135 mmol/L (137-145)
[2022-07-16 07:40] LABS: Glucose,Whole Blood 161 mg/dL (70-110)
[2022-07-16] MEDS: INSULIN ASPART (NovoLOG) 100 UNIT/ML VIAL SQ SCH ×4 (08:34→12:55)
[2022-07-16] MEDS: carvediloL 12.5 MG TAB PO SCH (08:35)
[2022-07-16] MEDS: PANTOPRAZOLE 40 MG TABLET PO SCH (08:39)
[2022-07-16] MEDS: INSULIN DETEMIR (LEVEMIR) 100 UNIT/ML SYR SQ SCH (08:39)
[2022-07-16] MEDS: HEPARIN SODIUM,PORCINE/PF 5,000 UNIT/0.5 ML SYRINGE SQ SCH (08:39)
[2022-07-16] MEDS: FOLIC ACID-VIT B COMPLEX-VIT C 1 CAP PO SCH (08:39)
[2022-07-16] MEDS: SEVELAMER 800 MG TAB PO SCH (08:43)
--- NOTE | 2022-07-16 09:55 | P.PN ---
Subjective Progress Note Date: 07/16/22 Principal diagnosis: Dyspnea, cough This is a very pleasant 51-year-old male patient with a known history of diabetes mellitus, hypertension, chronic renal failure receiving hemodialysis on Wednesday is, chronic pain syndrome, fibromyalgia, hype diabetic neuropathy obstructive sleep apnea utilizing CPAP, nonsmoker. He presented here to the emergency room yesterday with acute on chronic pain state his pain had been worse mostly in his back steps and legs. This started while he was at dialysis this past Wednesday07/10/2022 and he did have a cough and congestion. No phlegm. No fever. No nausea vomiting or diarrhea. He did have complaints of headache. Chest x-ray reveals poor inspiratory effort with atelectasis at lung bases more so on the right lung base. CT angiogram ruled out pulmonary embolism. There was a right lower lobe infiltrate/atelectasis. He is seen today in consultation on the regular medical floor. He is currently resting quite comfortably in bed. He was febrile at 100.6 last evening. Currently afebrile. Maintaining O2 saturations in the 90s on room air. White count 7.4. Hemoglobin 12.8. D-dimer 1.35. Sodium 137. Potassium 4.7. BUN 50. Creatinine 10.5. Glucose 154. ProBNP 470. Current virus by PCR not detected. Influenza screen negative. Procalcitonin pending. He was initiated on ceftriaxone and azithromy hipolito. On 07/15/2022 patient seen in follow-up on general medical floor. He is resting comfortably in bed, still has a cough which is nonproductive, and patient has not been able to produce phlegm specimen for culture. But overall he states he is feeling better, breathing comfortable, he is on room air, satting 94%, no fever or chills, blood pressure is been stable. He was dialyzed yesterday and 2 L of fluid was removed with hemodialysis. Procalcitonin level came back at 0.59. Patient continues on empiric antibiotics with Rocephin. Blood cultures have shown no growth thus far. Today's labs have been noted, with some Compazine 0.6, hemoglobin is 12.3. BMP is still pending for today, COVID-19 influenza A and B were all negative. On 07/16/2022 patient seen in follow-up on general medical floor. Patient is resting comfortably in bed, breathing comfortable, he is currently on room air, satting 95-90%, he has been afebrile, vital signs have been stable, no worsening dyspnea, still has a dry cough, no phlegm production, no complaint chest discomfort. Patient is being dialyzed this morning. No acute events overnight. Today's labs have been reviewed, sodium is 135, potassium is 4.4, chloride is 96, BUN is 85, creatinine is 12.24. Patient continues on Rocephin, blood cultures have remained negative. Objective - Vital Signs Vital signs: Vital Signs Temp 97.5 F L 07/16/22 05:06 Pulse 90 07/16/22 05:06 Resp 17 07/16/22 05:06 BP 109/72 07/16/22 05:06 Pulse Ox 95 07/16/22 05:06 FiO2 Intake & Output 07/15/22 07/16/22 07/16/22 18:59 06:59 18:59 Intake Total 320 Balance 320 Intake: Intake, IV Titration 320 Amount Sodium Chloride 0.9% 1, 220 000 ml @ 20 mls/hr IV . Q24H [facility] Rx#:[id number] cefTRIAXone 2 gm In 100 Sodium Chloride 0.9% 50 ml @ 100 mls/hr IVPB Q24H [facility] Rx#:[id number] Other: Voiding Method Urinal Urinal Urinal # Voids 2 - Exam GENERAL EXAM: Alert, very pleasant, 51-year-old -[place] male resting comfortably in bed on room air with a pulse ox of 94%, comfortable in no apparent distress. HEAD: Normocephalic/atraumatic. EYES: Normal reaction of pupils, equal size. Conjunctiva pink, sclera white. NOSE: Clear with pink turbinates. THROAT: No erythema or exudates. NECK: No masses, no JVD, no thyroid enlargement, no adenopathy. CHEST: No chest wall deformity. Symmetrical expansion. LUNGS: Equal air entry with no crackles, wheeze, rhonchi or dullness. CVS: Regular rate and rhythm, normal S1 and S2, no gallops, no murmurs, no rubs ABDOMEN: Soft, nontender. No hepatosplenomegaly, normal bowel sounds, no guarding or rigidity. EXTREMITIES: No clubbing, no edema, no cyanosis, 2+ pulses and upper and lower extremities. MUSCULOSKELETAL: Muscle strength and tone normal. SPINE: No scoliosis or deformity SKIN: No rashes CENTRAL NERVOUS SYSTEM: Alert and oriented -3. No focal deficits, tone is normal in all 4 extremities. PSYCHIATRIC: Alert and oriented -3. Appropriate affect. Intact judgment and insight. - Labs CBC & Chem 7: 07/15/22 06:59 07/16/22 05:24 Labs: Abnormal Lab Results - Last 24 Hours (Table) 07/15/22 07/15/22 07/15/22 Range/Units 06:59 06:59 11:23 RBC 4.10 L (4.40-5.60) X 10*6/uL Hgb 12.3 L (13.0-17.0) g/dL Hct 36.6 L (39.6-50.0) % Eosinophils # 0.01 L (0.04-0.35) X 10*3/uL Sodium 134 L (135-145) mmol/L Chloride 93 L (96-109) mmol/L BUN 60.3 H (9.0-27.0) mg/dL Creatinine 10.2 H* (0.6-1.5) mg/dL Est GFR (CKD-EPI)AfAm 6.1 L (60.0-200.0) Est GFR (CKD-EPI)NonAf 5.3 L (60.0-200.0) BUN/Creatinine Ratio 5.91 L (12.00-20.00) Ratio Glucose 232 H (70-110) mg/dL POC Glucose (mg/dL) 230 H (70-110) mg/dL Calcium (8.4-10.2) mg/dL Phosphorus 5.4 H (2.4-5.1) mg/dL 07/16/22 07/16/22 Range/Units 05:24 07:38 RBC (4.40-5.60) X 10*6/uL Hgb (13.0-17.0) g/dL Hct (39.6-50.0) % Eosinophils # (0.04-0.35) X 10*3/uL Sodium 135 L (135-145) mmol/L Chloride 96 L (96-109) mmol/L BUN 85 H (9.0-27.0) mg/dL Creatinine 12.24 H* (0.6-1.5) mg/dL Est GFR (CKD-EPI)AfAm (60.0-200.0) Est GFR (CKD-EPI)NonAf (60.0-200.0) BUN/Creatinine Ratio (12.00-20.00) Ratio Glucose 195 H (70-110) mg/dL POC Glucose (mg/dL) 161 H (70-110) mg/dL Calcium 8.3 L (8.4-10.2) mg/dL Phosphorus (2.4-5.1) mg/dL Microbiology - Last 24 Hours (Table) 07/13/22 19:50 Blood Culture - Preliminary Blood No Growth after 48 hours 07/13/22 20:05 Blood Culture - Preliminary Blood No Growth after 48 hours Assessment and Plan Plan: Community-acquired pneumonia more so on the right lung base. Currently on azithromycin and ceftriaxone. Pro-calcitonin mildly elevated at 0.59 Febrile illness secondary to above, improved, and patient has been afebrile Acute on chronic pain syndrome including back, hips and legs History of fibromyalgia History of chronic renal failure on hemodialysis Wednesday Diabetes mellitus Diabetic neuropathy Hypertension Plan: Patient continues to improve No worsening dyspnea, mild dry cough No acute events overnight From pulmonary perspective Considered for discharge home today to complete 7 day course of Augmentin [id number] twice a day Outpatient follow-up with Dr. Dominguez in 7 days I have personally seen and examined the patient, performed the documentation and the assessment and plan as written. Number of minutes spent on the visit: [10] Time with Patient: Less than 30
--- NOTE | 2022-07-16 10:34 | P.PN ---
Subjective Patient is seen in follow-up for end-stage renal disease. He is maintained on hemodialysis on Wednesday schedule. Tolerating dialysis well. No chest pain or shortness of breath. On room air. No active complaints at this time. Vital signs are stable. General: Awake. No acute distress. HEENT: Head exam is unremarkable. LUNGS: Breath sounds decreased. HEART: Rate and Rhythm are regular. ABDOMEN: Soft, no distention. EXTREMITITES: No edema. Objective - Vital Signs Vital signs: Vital Signs Temp 97.5 F L 07/16/22 05:06 Pulse 90 07/16/22 05:06 Resp 17 07/16/22 05:06 BP 109/72 07/16/22 05:06 Pulse Ox 95 07/16/22 05:06 FiO2 Intake & Output 07/15/22 07/16/22 07/16/22 18:59 06:59 18:59 Intake Total 320 Balance 320 Intake: Intake, IV Titration 320 Amount Sodium Chloride 0.9% 1, 220 000 ml @ 20 mls/hr IV . Q24H [facility] Rx#:[id number] cefTRIAXone 2 gm In 100 Sodium Chloride 0.9% 50 ml @ 100 mls/hr IVPB Q24H [facility] Rx#:[id number] Other: Voiding Method Urinal Urinal Urinal # Voids 2 - Labs CBC & Chem 7: 07/15/22 06:59 07/16/22 05:24 Labs: Abnormal Lab Results - Last 24 Hours (Table) 07/15/22 07/15/22 07/15/22 Range/Units 06:59 06:59 11:23 RBC 4.10 L (4.40-5.60) X 10*6/uL Hgb 12.3 L (13.0-17.0) g/dL Hct 36.6 L (39.6-50.0) % Eosinophils # 0.01 L (0.04-0.35) X 10*3/uL Sodium 134 L (135-145) mmol/L Chloride 93 L (96-109) mmol/L BUN 60.3 H (9.0-27.0) mg/dL Creatinine 10.2 H* (0.6-1.5) mg/dL Est GFR (CKD-EPI)AfAm 6.1 L (60.0-200.0) Est GFR (CKD-EPI)NonAf 5.3 L (60.0-200.0) BUN/Creatinine Ratio 5.91 L (12.00-20.00) Ratio Glucose 232 H (70-110) mg/dL POC Glucose (mg/dL) 230 H (70-110) mg/dL Calcium (8.4-10.2) mg/dL Phosphorus 5.4 H (2.4-5.1) mg/dL 07/16/22 07/16/22 Range/Units 05:24 07:38 RBC (4.40-5.60) X 10*6/uL Hgb (13.0-17.0) g/dL Hct (39.6-50.0) % Eosinophils # (0.04-0.35) X 10*3/uL Sodium 135 L (135-145) mmol/L Chloride 96 L (96-109) mmol/L BUN 85 H (9.0-27.0) mg/dL Creatinine 12.24 H* (0.6-1.5) mg/dL Est GFR (CKD-EPI)AfAm (60.0-200.0) Est GFR (CKD-EPI)NonAf (60.0-200.0) BUN/Creatinine Ratio (12.00-20.00) Ratio Glucose 195 H (70-110) mg/dL POC Glucose (mg/dL) 161 H (70-110) mg/dL Calcium 8.3 L (8.4-10.2) mg/dL Phosphorus (2.4-5.1) mg/dL Microbiology - Last 24 Hours (Table) 07/13/22 19:50 Blood Culture - Preliminary Blood No Growth after 48 hours 07/13/22 20:05 Blood Culture - Preliminary Blood No Growth after 48 hours Assessment and Plan Plan: Assessment: 1. End-stage renal disease maintained on hemodialysis on Wednesday schedule via left upper extremity AV fistula. 2. Pneumonia maintained on antibiotics. Pulmonology following. 3. Chronic kidney disease mineral bone disease. On phosphate binders. Phos 5.4. 4. Diabetes mellitus. 5. Hypertension with chronic kidney disease. Currently stable. Plan: Currently seen while undergoing hemodialysis. Next treatment on Wednesday. Follow-up cultures.
[2022-07-16 11:20] VITALS: BP 138/75; PULSE 75; RESP 18; TEMP 97.8
--- NOTE | 2022-07-16 12:45 | XR ---
EXAMINATION TYPE: XR chest 1V portable DATE OF EXAM: 07/16/2022 COMPARISON: NONE HISTORY: Shortness of breath TECHNIQUE: Single frontal view of the chest is obtained. FINDINGS: Heart size normal with no pleural effusion or pneumothorax. Vague patchy density in the le ft lower lobe. Interstitium stable. AC joint arthropathy noted. IMPRESSION: Vague patchy density left lower lobe early infiltrate in the differential diagnosis.
[2022-07-16 12:52] LABS: Glucose,Whole Blood 90 mg/dL (70-110)
[2022-07-16] MEDS: CALCIUM ACETATE 667 MG TAB PO SCH (12:54)
== END 2022-07-16 15:24 | disposition home or self-care (01) | DRG 193 ==
LOC: EC 19:01 → 5NMEDONC 22:33
PROVIDERS: ADMIT Hospitalist; ATTEND Hospitalist
PROC: 5A1D70Z Performance of Urinary Filtration, Intermittent, Less than 6 Hours Per Day (ICD-10-PCS; principal; 2022-07-14)
DX: J18.9 Pneumonia, unspecified organism (principal); N18.6 End stage renal disease; I12.0 Hypertensive chronic kidney disease with stage 5 chronic kidney disease or end stage renal disease; J98.11 Atelectasis; E11.42 Type 2 diabetes mellitus with diabetic polyneuropathy; E11.22 Type 2 diabetes mellitus with diabetic chronic kidney disease; E83.9 Disorder of mineral metabolism, unspecified; D64.9 Anemia, unspecified; Z99.2 Dependence on renal dialysis; Z79.4 Long term (current) use of insulin; G47.33 Obstructive sleep apnea (adult) (pediatric); M79.7 Fibromyalgia; G89.4 Chronic pain syndrome; M51.26 Other intervertebral disc displacement, lumbar region; M25.512 Pain in left shoulder; M25.511 Pain in right shoulder; H40.9 Unspecified glaucoma; M21.372 Foot drop, left foot; F41.9 Anxiety disorder, unspecified; Z20.822 Contact with and (suspected) exposure to COVID-19; Z79.899 Other long term (current) drug therapy; Z86.711 Personal history of pulmonary embolism; Z86.14 Personal history of Methicillin resistant Staphylococcus aureus infection; Z86.718 Personal history of other venous thrombosis and embolism; Z91.010 Allergy to peanuts; Z80.52 Family history of malignant neoplasm of bladder; Z82.49 Family history of ischemic heart disease and other diseases of the circulatory system
CPT/HCPCS: 36415; 71045; 71046; 71275; 80048; 80053; 83036; 83605; 83880; 84100; 84145; 84484; 85025; 85379; 85610; 85730; 87040; 87502; 87635; 90935; 93005; 96374; 96375; 99291

== ENCOUNTER 2022-08-25 09:13 | Emergency (ER) | payer MEDICARE, OTHER ==
[2022-08-25 09:51] VITALS: RESP 18; TEMP 98.6
[2022-08-25] MEDS ORDERED: HYDROmorphone 0.5 MG/0.5 ML SYRINGE IVP STA (10:08)
[2022-08-25 10:49] LABS: Albumin 4.1 g/dL (3.5-5.0); Calcium 8.7 mg/dL (8.4-10.2); Phosphorus 4.7 mg/dL (2.5-4.5); Potassium 4.6 mmol/L (3.5-5.1); Total Bilirubin 0.7 mg/dL (0.2-1.3); Total Protein 6.9 g/dL (6.3-8.2)
[2022-08-25 10:54] LABS: Basophils % (A) 0 %; Eosinophils # (A) 0.1 k/uL (0-0.7); Eosinophils % (A) 2 %; HCT 39.2 % (39.0-53.0); Lymphocytes # (A) 2.1 k/uL (1.0-4.8); Lymphocytes % (A) 29 %; MCH 30.1 pg (25.0-35.0); MCV 91.1 fL (80.0-100.0); Mean Platelet Volume 9.6; Monocytes # (A) 0.3 k/uL (0-1.0); Monocytes % (A) 4 %; Neutrophils # (A) 4.6 k/uL (1.3-7.7); Neutrophils % (A) 63 %; Platelet Count 192 k/uL (150-450); RBC 4.31 m/uL (4.30-5.90); RDW 14.3 % (11.5-15.5); WBC 7.3 k/uL (3.8-10.6)
--- NOTE | 2022-08-25 11:39 | CT ---
EXAMINATION TYPE: CT brain cspine wo con DATE OF EXAM: 08/25/2022 COMPARISON: Brain 01/13/2022 HISTORY: 52-year-old male NECK PAIN CT DLP: 1904 mGycm Automated exposure control for dose reduction was used. Technique: Examination of the head was done in axial plane without intravenous contrast. Coronal and sagittal reconstructions performed. CT of the cervical spine was obtained in axial plane without intravenous injection of contrast mater ial. Coronal and sagittal reformatted images were obtained from the axial views for evaluation of f ractures, spinal alignment and canal. FINDINGS: Head: There is no evidence of acute intracranial hemorrhage, acute ischemic changes, mass, mass-effect, or extra-axial fluid collection. There is no effacement of cerebral sulci or basal subarachnoid cister ns. There is no hydrocephalus. There is no midline shift. Urrutia-white matter distinction is preserv ed. Redemonstrated scleral and/or retinal calcifications along the posterior aspect of the right lobe whi ch is smaller than the left side. Ophthalmic device along the superolateral aspect of the right globe . Scattered trace mucosal thickening ethmoid air cells. Mastoid air cells well pneumatized. Cervical spine: No craniocervical junction abnormality, predental space widening, or prevertebral soft tissue swellin g. Reversal of the normal cervical lordosis with preserved alignment. Mild degenerative disc space narrowing mid to lower cervical spine. Possible posterior disc bulge mil dly narrowing the spinal canal at C5-C6. Assessment of the spinal canal from here down is limited due to artifact from the patient's shoulders. No significant bony neuroforaminal narrowing is seen. Sagittal and coronal reformatted images confirm above findings. COMBINED IMPRESSION: 1. No acute intracranial abnormality seen. 2. No acute fracture or malalignment of the cervical spine. Mild degenerative disc disease lower cerv ical spine. Reversal of the normal cervical lordosis could be positional or due to muscle spasm. 3. Redemonstrated small right globe with chronic appearing calcifications involving the posterior wal l. Ophthalmologic device also noted on the right.
[2022-08-25] MEDS ORDERED: HYDROmorphone 1 MG/ML 1 ML SYRINGE IVP STA (11:41)
--- NOTE | 2022-08-25 11:43 | ED ---
Headache HPI - General Chief Complaint: Headache Stated Complaint: Back pain,muscle spasms Time Seen by Provider: 08/25/22 09:57 Source: patient, EMS, RN notes reviewed Mode of arrival: EMS Limitations: no limitations - History of Present Illness Initial Comments: This is a 52-year-old male presents emergency from chief complaint of neck, upper back pain. Patient states that this has been gone for last 3 days. Patient states that he thought he could have to do it but states pain, spasms been getting worse she was taking some Robaxin which has not helped much. Patient was at dialysis and which sprain was still bothering him and the nurse felt that it was not okay to continue sent emergency department. Patient denies any chest pain or shortness breath denies any fevers or chills. Patient offers no other complaints. - Related Data Home Medications Medication Instructions Recorded Confirmed carvediloL [Coreg] 25 mg PO BID 06/27/20 07/13/22 Pantoprazole [Protonix] 40 mg PO DAILY 10/08/20 07/13/22 Calcium Acetate [PhosLo] 1,334 mg PO DAILY 03/01/21 07/13/22 Sevelamer [Renvela] 3,200 mg PO BID-W/MEALS 09/05/21 07/13/22 Insulin Glargine,Hum.rec.anlog 40 unit SQ DAILY 10/28/21 07/13/22 [Basaglar Kwikpen U-100] Dulaglutide [Trulicity] 0.75 mg SQ WE 07/13/22 07/13/22 Insulin Aspart [NovoLOG Flexpen] 10 units SQ AC-TID 07/13/22 07/13/22 Nephro-Lori 1 tab PO DAILY 07/13/22 07/13/22 Previous Rx's Medication Instructions Recorded Acetaminophen Tab [Tylenol] 650 mg PO Q6HR PRN tab 07/16/22 Amoxic-Pot Clav 875-125Mg 1 tab PO BID 7 Days #14 tab 07/16/22 [Augmentin 875-125] diazePAM [Valium] 5 mg PO TID PRN 3 Days #9 tab 08/25/22 Allergies Allergy/AdvReac Type Severity Reaction Status Date / Time peanut Allergy Anaphylaxis Verified 08/25/22 09:51 Review of Systems ROS Statement: Those systems with pertinent positive or pertinent negative responses have been documented in the HPI. ROS Other: All systems not noted in ROS Statement are negative. Past Medical History Past Medical History: Diabetes Mellitus, Dialysis, Eye Disorder, Fibromyalgia, Hypertension, Pneumonia, Pulmonary Embolus (PE), Renal Disease, Sleep Apnea/CPAP/BIPAP Additional Past Medical History / Comment(s): IDDM type II, neuropathy bilateral feet, chronic renal failure, anemia, chronic lower back and shoulders pain, herniated lumbar disk, glaucoma R eye, carpal tunnel syndrome bilaterally, bronc hitis, PAULA with CPAP. Left drop foot,fistula left upper arm,hemodialysis ,, , History of Any Multi-Drug Resistant Organisms: MRSA Date of last positivie culture/infection: 11/21/12 MDRO Source:: lower back Past Surgical History: Orthopedic Surgery Additional Past Surgical History / Comment(s): Incision and drainage back and R groin r/t abscesses removed, bilateral eye surgery for retinal repair, R eye surgery for glaucoma-. fistula-left upper arm,cystoscopy with biopsy Past Anesthesia/Blood Transfusion Reactions: Postoperative Nausea & Vomiting (PONV) Additional Past Anesthesia/Blood Transfusion Reaction / Comment(s): pt stated has recieved blood transfusions-no known reaction. Past Psychological History: Anxiety Smoking Status: Never smoker Past Alcohol Use History: None Reported Past Drug Use History: None Reported - Past Family History Brother(s) Family Medical History: Cancer, Deep Vein Thrombosis (DVT) Additional Family Medical History / Comment(s): colon Father Family Medical History: Cancer Additional Family Medical History / Comment(s): Bladder cancer in father. Mother Additional Family Medical History / Comment(s): Mother of brain aneurysm General Exam Limitations: no limitations General appearance: alert, in no apparent distress Head exam: Present: atraumatic, normocephalic, normal inspection Eye exam: Present: normal appearance, PERRL, EOMI. Absent: scleral icterus, conjunctival injection, periorbital swelling ENT exam: Present: normal exam, mucous membranes moist Neck exam: Present: normal inspection, tenderness. Absent: meningismus, full RO M, lymphadenopathy Respiratory exam: Present: normal lung sounds bilaterally. Absent: respiratory distress, wheezes, rales, rhonchi, stridor Cardiovascular Exam: Present: regular rate, normal rhythm, normal heart sounds. Absent: systolic murmur, diastolic murmur, rubs, gallop, clicks GI/Abdominal exam: Present: soft, normal bowel sounds. Absent: distended, tenderness, guarding, rebound, rigid Extremities exam: Present: normal inspection, full ROM, normal capillary refill. Absent: tenderness, pedal edema, joint swelling, calf tenderness Neurological exam: Present: alert, oriented X3, reflexes normal. Absent: motor sensory deficit Course Vital Signs 08/25/22 08/25/22 09:47 11:48 Temperature 98.6 F Pulse Rate 80 83 Respiratory 18 18 Rate Blood Pressure 156/81 139/81 O2 Sat by Pulse 99 96 Oximetry Medical Decision Making - Medical Decision Making 52-year-old male presented emergency department for neck discomfort, muscle spasms. CT of brain and C-spine are obtained shows also normal curvature related to muscle spasms. Labwork reveals chronic renal failure with no hyperkalemia. Patient does feel improved after Valium, pain control patient discharged in stable condition return parameters were discussed. - Lab Data Result diagrams: 08/25/22 10:14 08/25/22 10:14 Lab Results 08/25/22 08/25/22 Range/Units 10:14 10:14 WBC 7.3 (3.8-10.6) k/uL RBC 4.31 (4.30-5.90) m/uL Hgb 13.0 (13.0-17.5) gm/dL Hct 39.2 (39.0-53.0) % MCV 91.1 (80.0-100.0) fL MCH 30.1 (25.0-35.0) pg MCHC 33.0 (31.0-37.0) g/dL RDW 14.3 (11.5-15.5) % Plt Count 192 (150-450) k/uL MPV 9.6 Neutrophils % 63 % Lymphocytes % 29 % Monocytes % 4 % Eosinophils % 2 % Basophils % 0 % Neutrophils # 4.6 (1.3-7.7) k/uL Lymphocytes # 2.1 (1.0-4.8) k/uL Monocytes # 0.3 (0-1.0) k/uL Eosinophils # 0.1 (0-0.7) k/uL Basophils # 0.0 (0-0.2) k/uL Sodium 140 (137-145) mmol/L Potassium 4.6 (3.5-5.1) mmol/L Chloride 99 (98-107) mmol/L Carbon Dioxide 28 (22-30) mmol/L Anion Gap 13 mmol/L BUN 65 H (9-20) mg/dL Creatinine 8.86 H* (0.66-1.25) mg/dL Est GFR (CKD-EPI)AfAm 7 (>60 ml/min/1.73 sqM) Est GFR (CKD-EPI)NonAf 6 (>60 ml/min/1.73 sqM) Glucose 173 H (74-99) mg/dL Calcium 8.7 (8.4-10.2) mg/dL Phosphorus 4.7 H (2.5-4.5) mg/dL Total Bilirubin 0.7 (0.2-1.3) mg/dL AST 19 (17-59) U/L ALT 17 (4-49) U/L Alkaline Phosphatase 101 (38-126) U/L Total Protein 6.9 (6.3-8.2) g/dL Albumin 4.1 (3.5-5.0) g/dL Disposition Clinical Impression: Spasm of cervical paraspinous muscle Disposition: HOME SELF-CARE Condition: Stable Instructions (If sedation given, give patient instructions): Acute Neck Pain (ED) Additional Instructions: Please return to the Emergency Department if symptoms worsen or any other concerns. Prescriptions: diazePAM [Valium] 5 mg PO TID PRN 3 Days #9 tab PRN Reason: Spasms Is patient prescribed a controlled substance at d/c from ED?: Yes When asked, does pt state using other controlled substances?: No If prescribed controlled substance>3 days was MAPS reviewed?: Prescribed <3 Days Referrals: Sharri Mckeon MD [Primary Care Provider] - 1-2 days Time of Disposition: 12:15
[2022-08-25 11:48] VITALS: BP 139/81; PULSE 83
[2022-08-25] MEDS ORDERED: ACET/COD 300 MG/30 MG STARTER PACK 6 TAB BTL PO STA (12:15)
== END 2022-08-25 12:58 | disposition home or self-care (01) ==
LOC: EC 09:13
DX: M62.838 Other muscle spasm (principal); E11.9 Type 2 diabetes mellitus without complications; Z79.4 Long term (current) use of insulin; I10 Essential (primary) hypertension; Z91.010 Allergy to peanuts
CPT/HCPCS: 36415; 80053; 84100; 85025; 72125; 70450; 99284; 96374; 96376; 96375; J3360; J1170 ×2

== ENCOUNTER 2022-09-30 09:07 | Emergency (ER) | payer MEDICARE, OTHER ==
[2022-09-30 09:15] VITALS: TEMP 98.1
[2022-09-30] MEDS ORDERED: HYDROmorphone 0.5 MG/0.5 ML SYRINGE IVP STA (10:09)
[2022-09-30 10:22] LABS: Basophils % (A) 1 %; Eosinophils # (A) 0.1 k/uL (0-0.7); Eosinophils % (A) 2 %; HCT 38.7 % (39.0-53.0); Lymphocytes % (A) 35 %; MCH 30.5 pg (25.0-35.0); MCHC 33.7 g/dL (31.0-37.0); MCV 90.4 fL (80.0-100.0); Mean Platelet Volume 8.7; Monocytes # (A) 0.3 k/uL (0-1.0); Monocytes % (A) 5 %; Neutrophils # (A) 3.1 k/uL (1.3-7.7); Neutrophils % (A) 55 %; Platelet Count 162 k/uL (150-450); RBC 4.28 m/uL (4.30-5.90); RDW 13.7 % (11.5-15.5); WBC 5.7 k/uL (3.8-10.6)
[2022-09-30 10:28] VITALS: RESP 18
[2022-09-30 10:38] LABS: Albumin 3.9 g/dL (3.5-5.0); Calcium 8.5 mg/dL (8.4-10.2); Total Bilirubin 0.9 mg/dL (0.2-1.3); Total Protein 6.6 g/dL (6.3-8.2)
[2022-09-30 10:40] LABS: Potassium 4.5 mmol/L (3.5-5.1)
--- NOTE | 2022-09-30 10:40 | ED ---
Abdominal Pain HPI - General Chief Complaint: Abdominal Pain Stated Complaint: kidney pain Time Seen by Provider: 09/30/22 09:58 Source: patient, EMS, RN notes reviewed Mode of arrival: EMS Limitations: no limitations - History of Present Illness Initial Comments: This is a 52-year-old male with a past medical history of renal failure on dialysis who presents to the emergency department for bilateral flank pain. States that at 3 AM he woke up with pain in the bilateral flanks, worse on the right. He does have some radiation to the right groin. Denies any history of kidney stones or associated nausea or vomiting. He has hemodialysis on Wednesday, , and Wednesday. He does still make his own urine. Denies any fevers, chills, sore throat, cough, dyspnea, chest pain, palpitations, nausea, vomiting, diarrhea, or headaches. MD Complaint: abdominal pain, flank pain Location: L flank, R flank - Related Data Home Medications Medication Instructions Recorded Confirmed carvediloL [Coreg] 25 mg PO BID 06/27/20 09/30/22 Pantoprazole [Protonix] 40 mg PO DAILY 10/08/20 09/30/22 Calcium Acetate [PhosLo] 1,334 mg PO BID-W/MEALS 03/01/21 09/30/22 Sevelamer [Renvela] 3,200 mg PO BID-W/MEALS 09/05/21 09/30/22 Insulin Glargine,Hum.rec.anlog 40 unit SQ DAILY 10/28/21 09/30/22 [Basaglar Kwikpen U-100] Dulaglutide [Trulicity] 0.75 mg SQ WE 07/13/22 09/30/22 Insulin Aspart [NovoLOG Flexpen] 10 units SQ AC-TID MDD 50 UNITS 07/13/22 09/30/22 Nephro-Lori 0.8 mg PO DAILY 07/13/22 09/30/22 Docusate [Colace] 100 mg PO TUTHSA 09/30/22 09/30/22 Insulin Aspart [NovoLOG Flexpen] See Protocol SQ AC-TID PRN MDD 50 09/30/2201/20 UNITS Lotemax 0.5% Eye Ointment 1 applic RIGHT EYE Q48H 09/30/22 09/30/22 prednisoLONE ACETATE 1% OPHTH 1 drop RIGHT EYE DAILY 09/30/22 09/30/22 [Pred Forte 1%] Previous Rx's Medication Instructions Recorded Acetaminophen Tab [Tylenol] 650 mg PO Q6HR PRN tab 07/16/22 diazePAM [Valium] 5 mg PO TID PRN 3 Days #9 tab 08/25/22 Cyclobenzaprine [Flexeril] 5 mg PO TID PRN #15 tablet 09/30/22 Allergies Allergy/AdvReac Type Severity Reaction Status Date / Time peanut Allergy Anaphylaxis Verified 09/30/22 14:21 Review of Systems ROS Statement: Those systems with pertinent positive or pertinent negative responses have been documented in the HPI. ROS Other: All systems not noted in ROS Statement are negative. Past Medical History Past Medical History: Diabetes Mellitus, Dialysis, Eye Disorder, Fibromyalgia, Hypertension, Pneumonia, Pulmonary Embolus (PE), Renal Disease, Sleep Apnea/CPAP/BIPAP Additional Past Medical History / Comment(s): IDDM type II, neuropathy bilateral feet, chronic renal failure, anemia, chronic lower back and shoulders pain, herniated lumbar disk, glaucoma R eye, carpal tunnel syndrome bilaterally, bronchitis, PAULA with CPAP. Left drop foot,fistula left upper arm,hemodialysis ,, , History of Any Multi-Drug Resistant Organisms: MRSA Date of last positivie culture/infection: 11/21/12 MDRO Source:: lower back Past Surgical History: Orthopedic Surgery Additional Past Surgical History / Comment(s): Incision and drainage back and R groin r/t abscesses removed, bilateral eye surgery for retinal repair, R eye surgery for glaucoma-. fistula-left upper arm,cystoscopy with biopsy Past Anesthesia/Blood Transfusion Reactions: Postoperative Nausea & Vomiting (PONV) Additional Past Anesthesia/Blood Transfusion Reaction / Comment(s): pt stated has recieved blood transfusions-no known reaction. Past Psychological History: Anxiety Smoking Status: Never smoker Past Alcohol Use History: None Reported Past Drug Use History: None Reported - Past Family History Brother(s) Family Medical History: Cancer, Deep Vein Thrombosis (DVT) Additional Family Medical History / Comment(s): colon Father Family Medical History: Cancer Additional Family Medical History / Comment(s): Bladder cancer in father. Mother Additional Family Medical History / Comment(s): Mother of brain aneurysm General Exam Limitations: no limitations General appearance: alert, in distress Head exam: Present: atraumatic, normocephalic, normal inspection Respiratory exam: Present: normal lung sounds bilaterally. Absent: respiratory distress, wheezes, rales, rhonchi, stridor Cardiovascular Exam: Present: regular rate, normal rhythm, normal heart sounds. Absent: systolic murmur, diastolic murmur, rubs, gallop, clicks Back exam: Present: CVA tenderness (R), CVA tenderness (L) Neurological exam: Present: alert, oriented X3, CN II-XII intact Psychiatric exam: Present: normal affect, normal mood Skin exam: Present: warm, dry, intact, normal color. Absent: rash Course Vital Signs 09/30/22 09/30/22 09/30/22 09:08 10:27 14:42 Temperature 98.1 F Pulse Rate 74 89 91 Respiratory 24 18 18 Rate Blood Pressure 129/72 135/67 141/72 O2 Sat by Pulse 99 98 97 Oximetry Medical Decision Making - Medical Decision Making This is a 52-year-old male who presents to the emergency department for bilateral flank pain. Lab work is consistent with the patient's renal failure in terms of creatinine and GFR. When compared to prior values, these levels are stable. Also reveals no signs of leukocytosis or lactic acidosis to suggest a severe infection leading to sepsis. Computed tomography scan of the abdomen and pelvis obtained, I was unable to identify any renal or ureteral calculi, or other acute abnormalities to account for the patient's symptoms. Patient is kn own to have a history of chronic back pain. His symptoms were controlled in the emergency department. Prescription for short course of Flexeril was provided, advised him to avoid taking this with any other muscle relaxants and to take his first dose at night until he knows how it affects him, as it may be sedating. Return precautions reviewed in depth, the patient is instructed to return to the emergency department with any new, worsening, or concerning symptoms. Patient verbalized understanding. This case was discussed in detail with the attending ED physician. Presentation, findings, and treatment plan discussed in detail as well. - Lab Data Result diagrams: 09/30/22 10:17 09/30/22 10:17 Lab Results 09/30/22 09/30/22 09/30/22 Range/Units 10:17 10:17 10:17 WBC 5.7 (3.8-10.6) k/uL RBC 4.28 L (4.30-5.90) m/uL Hgb 13.0 (13.0-17.5) gm/dL Hct 38.7 L (39.0-53.0) % MCV 90.4 (80.0-100.0) fL MCH 30.5 (25.0-35.0) pg MCHC 33.7 (31.0-37.0) g/dL RDW 13.7 (11.5-15.5) % Plt Count 162 (150-450) k/uL MPV 8.7 Neutrophils % 55 % Lymphocytes % 35 % Monocytes % 5 % Eosinophils % 2 % Basophils % 1 % Neutrophils # 3.1 (1.3-7.7) k/uL Lymphocytes # 2.0 (1.0-4.8) k/uL Monocytes # 0.3 (0-1.0) k/uL Eosinophils # 0.1 (0-0.7) k/uL Basophils # 0.0 (0-0.2) k/uL Sodium 137 (137-145) mmol/L Potassium 4.5 (3.5-5.1) mmol/L Chloride 98 (98-107) mmol/L Carbon Dioxide 28 (22-30) mmol/L Anion Gap 11 mmol/L BUN 52 H (9-20) mg/dL Creatinine 7.47 H* (0.66-1.25) mg/dL Est GFR (CKD-EPI)AfAm 9 (>60 ml/min/1.73 sqM) Est GFR (CKD-EPI)NonAf 8 (>60 ml/min/1.73 sqM) Glucose 190 H (74-99) mg/dL Plasma Lactic Acid Saman 1.7 (0.7-2.0) mmol/L Calcium 8.5 (8.4-10.2) mg/dL Total Bilirubin 0.9 (0.2-1.3) mg/dL AST 22 (17-59) U/L ALT 19 (4-49) U/L Alkaline Phosphatase 100 (38-126) U/L Troponin I (0.000-0.034) ng/mL Total Protein 6.6 (6.3-8.2) g/dL Albumin 3.9 (3.5-5.0) g/dL Amylase 73 (30-110) U/L Lipase 208 (23-300) U/L Urine Color Urine Appearance (Clear) Urine pH (5.0-8.0) Ur Specific [place] (1.001-1.035) Urine Protein (Negative) Urine Glucose (UA) (Negative) Urine Ketones (Negative) Urine Blood (Negative) Urine Nitrite (Negative) Urine Bilirubin (Negative) Urine Urobilinogen (<2.0) mg/dL Ur Leukocyte Esterase (Negative) Urine RBC (0-5) /hpf Urine WBC (0-5) /hpf Ur Squamous Epith Cells (0-4) /hpf 09/30/22 09/30/22 Range/Units 11:27 11:34 WBC (3.8-10.6) k/uL RBC (4.30-5.90) m/uL Hgb (13.0-17.5) gm/dL Hct (39.0-53.0) % MCV (80.0-100.0) fL MCH (25.0-35.0) pg MCHC (31.0-37.0) g/dL RDW (11.5-15.5) % Plt Count (150-450) k/uL MPV Neutrophils % % Lymphocytes % % Monocytes % % Eosinophils % % Basophils % % Neutrophils # (1.3-7.7) k/uL Lymphocytes # (1.0-4.8) k/uL Monocytes # (0-1.0) k/uL Eosinophils # (0-0.7) k/uL Basophils # (0-0.2) k/uL Sodium (137-145) mmol/L Potassium (3.5-5.1) mmol/L Chloride (98-107) mmol/L Carbon Dioxide (22-30) mmol/L Anion Gap mmol/L BUN (9-20) mg/dL Creatinine (0.66-1.25) mg/dL Est GFR (CKD-EPI)AfAm (>60 ml/min/1.73 sqM) Est GFR (CKD-EPI)NonAf (>60 ml/min/1.73 sqM) Glucose (74-99) mg/dL Plasma Lactic Acid Saman (0.7-2.0) mmol/L Calcium (8.4-10.2) mg/dL Total Bilirubin (0.2-1.3) mg/dL AST (17-59) U/L ALT (4-49) U/L Alkaline Phosphatase (38-126) U/L Troponin I 0.015 (0.000-0.034) ng/mL Total Protein (6.3-8.2) g/dL Albumin (3.5-5.0) g/dL Amylase (30-110) U/L Lipase (23-300) U/L Urine Color Yellow Urine Appearance Clear (Clear) Urine pH 7.0 (5.0-8.0) Ur Specific [place] 1.012 (1.001-1.035) Urine Protein 2+ H (Negative) Urine Glucose (UA) 1+ H (Negative) Urine Ketones Negative (Negative) Urine Blood Negative (Negative) Urine Nitrite Negative (Negative) Urine Bilirubin Negative (Negative) Urine Urobilinogen <2.0 (<2.0) mg/dL Ur Leukocyte Esterase Negative (Negative) Urine RBC 1 (0-5) /hpf Urine WBC 1 (0-5) /hpf Ur Squamous Epith Cells <1 (0-4) /hpf - EKG Data EKG Comments: Sinus rhythm. Left ventricular hypertrophy. Ventricular rate 79 bpm, MT interval 171 ms, QRS duration 90 ms, QTC 447 ms. - Radiology Data Radiology results: report reviewed, image reviewed Disposition Clinical Impression: Flank pain Disposition: HOME SELF-CARE Instructions (If sedation given, give patient instructions): Flank Pain (ED) Additional Instructions: Return to the emergency department with any new, worsening, or concerning symptoms. Take the Flexeril sparingly, up to 3 times daily for pain. Do not take this with baclofen. Be aware that it may make you drowsy, and you should take your first dose at night until you know how it affects you. Follow up with your primary care provider in 1-2 days. Prescriptions: Cyclobenzaprine [Flexeril] 5 mg PO TID PRN #15 tablet PRN Reason: Pain Is patient prescribed a controlled substance at d/c from ED?: No Referrals: Sharri Mckeon MD [Primary Care Provider] - 1-2 days
--- NOTE | 2022-09-30 11:06 | CT ---
EXAMINATION TYPE: CT abdomen pelvis wo con DATE OF EXAM: 09/30/2022 COMPARISON: 10/02/2021 HISTORY: Bilateral flank pain CT DLP: 1781.2 mGycm Automated exposure control for dose reduction was used. TECHNIQUE: Helical acquisition of images was performed from the lung bases through the pelvis. FINDINGS: LUNG BASES: Subsegmental changes involving the left lung base most likely atelectasis. LIVER/GB: No significant abnormality is appreciated. PANCREAS: No significant abnormality is seen. SPLEEN: No significant abnormality is seen. ADRENALS: No significant abnormality is seen. KIDNEYS: No hydronephrosis or nephrolithiasis. There are subcentimeter hypodensities within both kidn eys too small to characterize by noncontrast technique but statistically most likely related to this cyst URINARY BLADDER: Mild bladder wall thickening or cystitis. ADENOPATHY: None visualized. OSSEOUS STRUCTURES: Degenerative disc disease with Schmorl's nodes seen in the L2-L3 stable from sophia or exam and discogenic marrow changes. Severe degenerative disc disease. BOWEL: Bowel gas pattern nonspecific with no obstruction. Appendix is normal. Small hiatal hernia. OTHER: Aorta normal caliber. IMPRESSION: 1. No hydronephrosis or nephrolithiasis. 2. small hiatal. 3. Subsegmental changes left lung base most atelectasis correlate clinically.
[2022-09-30 11:44] LABS: Appearance,Urine Clear (Clear); Bilirubin,Urine Negative (Negative); Blood,Urine Negative (Negative); Color,Urine Yellow; Glucose,Urine (UA) 1+ (Negative); Ketones,Urine Negative (Negative); Leukocyte Esterase,Urine Negative (Negative); Nitrite,Urine Negative (Negative); Protein,Urine 2+ (Negative); RBC,Urine 1 /hpf (0-5); Specific Gravity,Urine 1.012 (1.001-1.035); Squamous Epithelial Cell,Urine <1 /hpf (0-4); Urobilinogen,Urine <2.0 mg/dL (<2.0); WBC,Urine 1 /hpf (0-5)
[2022-09-30] MEDS ORDERED: CYCLOBENZAPRINE 5 MG TAB PO STA (12:37)
[2022-09-30] MEDS ORDERED: HYDROmorphone 1 MG/ML 1 ML SYRINGE IVP STA (12:52)
[2022-09-30 14:43] VITALS: BP 141/72; PULSE 91
== END 2022-09-30 15:01 | disposition home or self-care (01) ==
LOC: EC 09:07
DX: R10.9 Unspecified abdominal pain (principal); G47.30 Sleep apnea, unspecified; I26.99 Other pulmonary embolism without acute cor pulmonale; F41.9 Anxiety disorder, unspecified; Z79.83 Long term (current) use of bisphosphonates; Z79.4 Long term (current) use of insulin; Z91.010 Allergy to peanuts; Z79.899 Other long term (current) drug therapy
CPT/HCPCS: 36415; 80053; 82150; 83605; 83690; 84484; 85025; 81001; 74176; 99284; 96374; 96376; J1170 ×2; 93005

== ENCOUNTER 2022-10-01 01:03 | Observation (INO) | payer MEDICARE, OTHER ==
[2022-10-01] MEDS ORDERED: MORPHINE SULFATE 4 MG/ML SYRINGE IVP STA ×2 (01:24→03:10)
[2022-10-01 01:43] LABS: Basophils % (A) 1 %; Eosinophils # (A) 0.1 k/uL (0-0.7); Eosinophils % (A) 2 %; HCT 43.4 % (39.0-53.0); HGB 14.4 gm/dL (13.0-17.5); Lymphocytes # (A) 2.5 k/uL (1.0-4.8); Lymphocytes % (A) 45 %; MCH 30.3 pg (25.0-35.0); MCHC 33.3 g/dL (31.0-37.0); MCV 91.1 fL (80.0-100.0); Mean Platelet Volume 8.8; Monocytes # (A) 0.3 k/uL (0-1.0); Monocytes % (A) 5 %; Neutrophils # (A) 2.5 k/uL (1.3-7.7); Neutrophils % (A) 45 %; Platelet Count 190 k/uL (150-450); RBC 4.76 m/uL (4.30-5.90); RDW 13.7 % (11.5-15.5); WBC 5.4 k/uL (3.8-10.6)
--- NOTE | 2022-10-01 01:46 | ED ---
General Adult HPI - General Chief complaint: Abdominal Pain Stated complaint: Flank pain, back pain Time Seen by Provider: 10/01/22 01:04 Source: patient, EMS, RN notes reviewed, old records reviewed Mode of arrival: EMS Limitations: no limitations - History of Present Illness Initial comments: 52-year-old male presenting for reevaluation of chronic back pain. Patient was seen earlier today, had laboratory testing, CT of the abdomen and pelvis. He c ontinues to have pain. This is been a chronic issue, ongoing for months to years. No new injury. Patient is on dialysis. No chest pain or dyspnea. - Related Data Home Medications Medication Instructions Recorded Confirmed carvediloL [Coreg] 25 mg PO BID 06/27/20 09/30/22 Pantoprazole [Protonix] 40 mg PO DAILY 10/08/20 09/30/22 Calcium Acetate [PhosLo] 1,334 mg PO BID-W/MEALS 03/01/21 09/30/22 Sevelamer [Renvela] 3,200 mg PO BID-W/MEALS 09/05/21 09/30/22 Insulin Glargine,Hum.rec.anlog 40 unit SQ DAILY 10/28/21 09/30/22 [Basaglar Kwikpen U-100] Dulaglutide [Trulicity] 0.75 mg SQ WE 07/13/22 09/30/22 Insulin Aspart [NovoLOG Flexpen] 10 units SQ AC-TID MDD 50 UNITS 07/13/22 09/30/22 Nephro-Lori 0.8 mg PO DAILY 07/13/22 09/30/22 Docusate [Colace] 100 mg PO TUTHSA 09/30/22 09/30/22 Insulin Aspart [NovoLOG Flexpen] See Protocol SQ AC-TID PRN MDD 50 09/30/22 09/30/22 UNITS Lotemax 0.5% Eye Ointment 1 applic RIGHT EYE Q48H 09/30/22 09/30/22 prednisoLONE ACETATE 1% OPHTH 1 drop RIGHT EYE DAILY 09/30/22 09/30/22 [Pred Forte 1%] Previous Rx's Medication Instructions Recorded Acetaminophen Tab [Tylenol] 650 mg PO Q6HR PRN tab 07/16/22 diazePAM [Valium] 5 mg PO TID PRN 3 Days #9 tab 08/25/22 Cyclobenzaprine [Flexeril] 5 mg PO TID PRN #15 tablet 09/30/22 Allergies Allergy/AdvReac Type Severity Reaction Status Date / Time peanut Allergy Anaphylaxis Verified 10/01/22 01:13 Review of Systems ROS Statement: Those systems with pertinent positive or pertinent negative responses have been documented in the HPI. ROS Other: All systems not noted in ROS Statement are negative. Past Medical History Past Medical History: Diabetes Mellitus, Dialysis, Eye Disorder, Fibromyalgia, Hypertension, Pneumonia, Pulmonary Embolus (PE), Renal Disease, Sleep Apnea/CPAP/BIPAP Additional Past Medical History / Comment(s): IDDM type II, neuropathy bilateral feet, chronic renal failure, anemia, chronic lower back and shoulders pain, herniated lumbar disk, glaucoma R eye, carpal tunnel syndrome bilaterally, bronchitis, PAULA with CPAP. Left drop foot,fistula left upper arm,hemodialysis ,, , History of Any Multi-Drug Resistant Organisms: MRSA Date of last positivie culture/infection: 11/21/12 MDRO Source:: lower back Past Surgical History: Orthopedic Surgery Additional Past Surgical History / Comment(s): Incision and drainage back and R groin r/t abscesses removed, bilateral eye surgery for retinal repair, R eye surgery for glaucoma-. fistula-left upper arm,cystoscopy with biopsy Past Anesthesia/Blood Transfusion Reactions: Postoperative Nausea & Vomiting (PONV) Additional Past Anesthesia/Blood Transfusion Reaction / Comment(s): pt stated has recieved blood transfusions-no known reaction. Past Psychological History: Anxiety Smoking Status: Never smoker Past Alcohol Use History: None Reported Past Drug Use History: None Reported - Past Family History Brother(s) Family Medical History: Cancer, Deep Vein Thrombosis (DVT) Additional Family Medical History / Comment(s): colon Father Family Medical History: Cancer Additional Family Medical History / Comment(s): Bladder cancer in father. Mother Additional Family Medical History / Comment(s): Mother of brain aneurysm General Exam Limitations: no limitations General appearance: alert, in no apparent distress Head exam: Present: atraumatic, normocephalic Eye exam: Present: normal appearance, PERRL ENT exam: Present: normal exam Neck exam: Present: normal inspection. Absent: tenderness, meningismus Respiratory exam: Present: normal lung sounds bilaterally. Absent: respiratory distress, wheezes Cardiovascular Exam: Present: regular rate, normal rhythm GI/Abdominal exam: Present: soft. Absent: distended, tenderness, guarding, rebound Extremities exam: Present: normal inspection, normal capillary refill Back exam: Present: paraspinal tenderness Neurological exam: Present: alert, oriented X3, CN II-XII intact. Absent: motor sensory deficit Psychiatric exam: Present: normal affect, normal mood Skin exam: Present: warm, dry, intact. Absent: cyanosis, diaphoretic Course Vital Signs 10/01/22 01:13 Temperature 98.1 F Pulse Rate 78 Respiratory 15 Rate Blood Pressure 138/83 O2 Sat by Pulse 100 Oximetry EKG Findings - EKG Comments: EKG Findings:: I reviewed this EKG, interpretation, sinus rhythm, rate of 88, MD interval 173, QRS duration 84, QTC 438, I do not see any ST segment elevation. Medical Decision Making - Medical Decision Making 52-year-old male acute on chronic back pain. Patient does state that the pain is been significantly worse over the past [address] imaging performed during evaluation earlier today with no acute findings. Laboratory tests are repeated, normal CBC, elevated BUN/creatinine consistent with end- stage renal disease. Patient remains symptomatic after initial treatment with morphine and Valium. Requires multiple doses of the emergency department. Will be placed in observation for pain management. - Lab Data Result diagrams: 10/01/22 01:35 10/01/22 01:35 Lab Results 10/01/22 10/01/22 Range/Units 01:35 01:35 WBC 5.4 (3.8-10.6) k/uL RBC 4.76 (4.30-5.90) m/uL Hgb 14.4 (13.0-17.5) gm/dL Hct 43.4 (39.0-53.0) % MCV 91.1 (80.0-100.0) fL MCH 30.3 (25.0-35.0) pg MCHC 33.3 (31.0-37.0) g/dL RDW 13.7 (11.5-15.5) % Plt Count 190 (150-450) k/uL MPV 8.8 Neutrophils % 45 % Lymphocytes % 45 % Monocytes % 5 % Eosinophils % 2 % Basophils % 1 % Neutrophils # 2.5 (1.3-7.7) k/uL Lymphocytes # 2.5 (1.0-4.8) k/uL Monocytes # 0.3 (0-1.0) k/uL Eosinophils # 0.1 (0-0.7) k/uL Basophils # 0.0 (0-0.2) k/uL Sodium 137 (137-145) mmol/L Potassium 5.1 (3.5-5.1) mmol/L Chloride 93 L (98-107) mmol/L Carbon Dioxide 26 (22-30) mmol/L Anion Gap 18 mmol/L BUN 63 H (9-20) mg/dL Creatinine 8.83 H* (0.66-1.25) mg/dL Est GFR (CKD-EPI)AfAm 7 (>60 ml/min/1.73 sqM) Est GFR (CKD-EPI)NonAf 6 (>60 ml/min/1.73 sqM) Glucose 224 H (74-99) mg/dL Calcium 9.1 (8.4-10.2) mg/dL Total Bilirubin 0.8 (0.2-1.3) mg/dL AST 35 (17-59) U/L ALT 22 (4-49) U/L Alkaline Phosphatase 121 (38-126) U/L Total Protein 7.5 (6.3-8.2) g/dL Albumin 4.4 (3.5-5.0) g/dL Disposition Clinical Impression: Intractable back pain, Flank pain Disposition: ADMITTED IP TO THIS [facility] Condition: Stable Is patient prescribed a controlled substance at d/c from ED?: No Referrals: Sharri Mckeon MD [Primary Care Provider] - 1-2 days Time of Disposition: 03:15
[2022-10-01 02:04] LABS: Albumin 4.4 g/dL (3.5-5.0); Calcium 9.1 mg/dL (8.4-10.2); Total Bilirubin 0.8 mg/dL (0.2-1.3); Total Protein 7.5 g/dL (6.3-8.2)
[2022-10-01 02:05] LABS: Potassium 5.1 mmol/L (3.5-5.1)
[2022-10-01] MEDS ORDERED: ACETAMINOPHEN TAB 325 MG TAB PO PRN (03:11)
[2022-10-01] MEDS ORDERED: ONDANSETRON 4 MG/2 ML VIAL IVP PRN (03:11)
[2022-10-01] MEDS ORDERED: NALOXONE 0.4 MG/ML 1 ML VIAL IV PRN (03:11)
[2022-10-01] MEDS ORDERED: MORPHINE SULFATE 4 MG/ML SYRINGE IV PRN (03:11)
[2022-10-01] MEDS ORDERED: ACETAMINOPHEN IV (For NPO) 1,000 MG in EMPTY BAG 1 BAG IVPB STA (03:17)
[2022-10-01] MEDS ORDERED: CYCLOBENZAPRINE 5 MG TAB PO PRN (04:03)
--- NOTE | 2022-10-01 04:16 | P.HPIM ---
History of Present Illness H&P Date: 10/01/22 Chief Complaint: right flank , paralumbar pain 52 year old male with ESRD on HD TTS through left AVF, DM patient comes in for evaluation of sudden onset severe disabling right paraspinal lumbar and flank pain , sharp 10/10 in severity , denies any radiculopathy denies any associated nausea vomiting, abd pain , changes in urine habits, hematuria, diarrhea , or GI bleeding patient had his HD done Saturday 09/29 which he tolerated well. he presented to the hospital earlier today for evaluation of flank pain (that was not that severe) CT of the abd pelvis was unremarkable for any acute pathology , no hydronephrosis , no kid stone blood work overall showing no new acute findings, pain control in the ED failed to get him comfort and relief. patient will be admitted under observation for pain control Review of Systems Pertinent positives as noted in HPI. All other systems were reviewed and are negative Past Medical History Past Medical History: Diabetes Mellitus, Dialysis, Eye Disorder, Fibromyalgia, Hypertension, Pneumonia, Pulmonary Embolus (PE), Renal Disease, Sleep Apnea/CPAP/BIPAP Additional Past Medical History / Comment(s): IDDM type II, neuropathy bilateral feet, chronic renal failure, anemia, chronic lower back and shoulders pain, herniated lumbar disk, glaucoma R eye, carpal tunnel syndrome bilaterally, bronchitis, PAULA with CPAP. Left drop foot,fistula left upper arm,hemodialysis , , History of Any Multi-Drug Resistant Organisms: MRSA Date of last positivie culture/infection: 11/21/12 MDRO Source:: lower back Past Surgical History: Orthopedic Surgery Additional Past Surgical History / Comment(s): Incision and drainage back and R groin r/t abscesses removed, bilateral eye surgery for retinal repair, R eye surgery for glaucoma-. fistula-left upper arm,cystoscopy with biopsy Past Anesthesia/Blood Transfusion Reactions: Postoperative Nausea & Vomiting (PONV) Additional Past Anesthesia/Blood Transfusion Reaction / Comment(s): pt stated has recieved blood transfusions-no known reaction. Past Psychological History: Anxiety Smoking Status: Never smoker Past Alcohol Use History: None Reported Past Drug Use History: None Reported - Past Family History Brother(s) Family Medical History: Cancer, Deep Vein Thrombosis (DVT) Additional Family Medical History / Comment(s): colon Father Family Medical History: Cancer Additional Family Medical History / Comment(s): Bladder cancer in father. Mother Additional Family Medical History / Comment(s): Mother of brain aneurysm Medications and Allergies Home Medications Medication Instructions Recorded Confirmed Type carvediloL [Coreg] 25 mg PO BID 06/27/20 09/30/22 History Pantoprazole [Protonix] 40 mg PO DAILY 10/08/20 09/30/22 History Calcium Acetate [PhosLo] 1,334 mg PO BID-W/MEALS 03/01/21 09/30/22 History Sevelamer [Renvela] 3,200 mg PO BID-W/MEALS 09/05/21 09/30/22 History Insulin Glargine,Hum.rec.anlog 40 unit SQ DAILY 10/28/21 09/30/22 History [Basaglar Kwikpen U-100] Dulaglutide [Trulicity] 0.75 mg SQ WE 07/13/22 09/30/22 History Insulin Aspart [NovoLOG Flexpen] 10 units SQ AC-TID MDD 50 UNITS 07/13/22 09/30/22 History Nephro-Lori 0.8 mg PO DAILY 07/13/22 09/30/22 History Acetaminophen Tab [Tylenol] 650 mg PO Q6HR PRN tab 07/16/22 09/30/22 Rx diazePAM [Valium] 5 mg PO TID PRN 3 Days #9 tab 08/25/22 09/30/22 Rx Cyclobenzaprine [Flexeril] 5 mg PO TID PRN #15 tablet 09/30/22 Rx Docusate [Colace] 100 mg PO TUTHSA 09/30/22 09/30/22 History Insulin Aspart [NovoLOG Flexpen] See Protocol SQ AC-TID PRN MDD 50 09/30/22 09/30/22 History UNITS Lotemax 0.5% Eye Ointment 1 applic RIGHT EYE Q48H 09/30/22 09/30/22 History prednisoLONE ACETATE 1% OPHTH 1 drop RIGHT EYE DAILY 09/30/22 09/30/22 History [Pred Forte 1%] Allergies Allergy/AdvReac Type Severity Reaction Status Date / Time peanut Allergy Anaphylaxis Verified 10/01/22 01:13 Physical Exam Vitals: Vital Signs Temp Pulse Resp BP Pulse Ox 10/01/22 01:13 98.1 F 78 15 138/83 100 Intake and Output 11/02/22 11/02/22 11/03/22 14:59 22:59 06:59 Other: Weight 136.078 kg Constitutional: patient in severe pain , that gets worse with movement Eyes: Anicteric sclerae, moist conjunctiva, Pupils equal round reactive to light ENMT: NC/AT Oropharynx clear, no erythema, or exudates Neck: Supple, FROM, no masses, or JVD No carotid bruits No thyromegaly Lungs: Clear to auscultation Clear to percussion Normal respiratory effort, no accessory muscle use Cardiovascular: Heart regular in rate and rhythm, No murmurs, gallops, or rubs No peripheral edema Abdominal: Soft Nontender, no guarding, rebound or rigidity Abdomen moving with respiration Normoactive bowel sounds No hepatomegaly, No splenomegaly No palpable mass No abdominal wall hernia noted Skin: thickening of areas of the skin over his bilateral flank, back , thoracic back , and shoulders. otherwise, Normal temperature, tone, texture, turgor Extremities: pain to deep palpation over the paraspinal lumbar region , mainly over the right side, No digital cyanosis No clubbing Pedal pulses intact and symmetrical Radial pulses intact and symmetrical No calf tenderness Psychiatric: Alert and oriented to person, place and time Appropriate affect fair judgement Neuro Muscles Strength 5/5 in all 4 extremities Sensation to light touch grossly present throughout Cranial nerves II-XII grossly intact Lymphatics: no palpable cervical or supraclavicular , lymph nodes Results CBC & Chem 7: 10/01/22 01:35 10/01/22 01:35 Labs: Abnormal Lab Results - Last 24 Hours (Table) 10/01/22 Range/Units 01:35 Chloride 93 L (98-107) mmol/L BUN 63 H (9-20) mg/dL Creatinine 8.83 H* (0.66-1.25) mg/dL Glucose 224 H (74-99) mg/dL Assessment and Plan Assessment: intractable pain right paraspinal lumbar pain pain control with morphine , valiuim , flexiril monitor vital signs CT abd pelvis reviewed no acute pathology ESRD on HD TTS nephro consult resume home meds DM insulin sliding scale basal insulin DVT PPX heparin sc tid full code GI PPX PPI
[2022-10-01 05:58] LABS: Glucose,Whole Blood 202 mg/dL (70-110)
[2022-10-01] MEDS: INSULIN ASPART (NovoLOG) 100 UNIT/ML VIAL SQ SCH ×4 (06:03→20:59)
[2022-10-01] MEDS: MORPHINE SULFATE 4 MG/ML SYRINGE IV PRN ×2 (08:22→20:42)
[2022-10-01] MEDS: diazePAM 5 MG TAB PO PRN (08:22)
[2022-10-01] MEDS ORDERED: DOCUSATE 100 MG CAP PO SCH (09:00)
[2022-10-01] MEDS ORDERED: INSULIN DETEMIR (LEVEMIR) 100 UNIT/ML SYR SQ SCH (09:00)
[2022-10-01] MEDS: CALCIUM ACETATE 667 MG TAB PO SCH ×2 (10:07→18:33)
[2022-10-01] MEDS: carvediloL 12.5 MG TAB PO SCH ×2 (10:07→20:46)
[2022-10-01] MEDS: HEPARIN SODIUM,PORCINE/PF 5,000 UNIT/0.5 ML SYRINGE SQ SCH ×3 (10:07→23:17)
[2022-10-01] MEDS: PANTOPRAZOLE 40 MG TABLET PO SCH (10:08)
[2022-10-01] MEDS: SEVELAMER 800 MG TAB PO SCH ×2 (10:08→18:33)
[2022-10-01] MEDS: INSULIN DETEMIR (LEVEMIR) 100 UNIT/ML SYR SQ SCH (11:01)
--- NOTE | 2022-10-01 11:44 | P.NPCON ---
History of Present Illness - Reason for Consult end stage renal disease - History of Present Illness Patient is a 52-year-old male with end-stage renal disease maintained on hemodialysis on a Wednesday schedule. Patient is admitted to the hospital with complaints of severe back pain which is more towards the right side. Patient initially presented to the ER and the ago and was discharged as pain had slightly improved however his pain had worsened and therefore patient came into the hospital. He felt quite incapacitated and was not able to move. Patient denies any history of trauma. CT of the abdomen done on 09/30/22 was unremarkable. No history of fever chills abdominal pain or vomiting. Review of Systems As per HPI. Past Medical History Past Medical History: Diabetes Mellitus, Dialysis, Eye Disorder, Fibromyalgia, Hypertension, Pneumonia, Pulmonary Embolus (PE), Renal Disease, Sleep Apnea/CPAP/BIPAP Additional Past Medical History / Comment(s): IDDM type II, neuropathy bilateral feet, chronic renal failure, anemia, chronic lower back and shoulders pain, herniated lumbar disk, glaucoma R eye, carpal tunnel syndrome bilaterally, bronchitis, PAULA with CPAP. Left drop foot,fistula left upper arm,hemodialysis ,, , History of Any Multi-Drug Resistant Organisms: MRSA Date of last positivie culture/infection: 11/21/12 MDRO Source:: lower back Past Surgical History: Orthopedic Surgery Additional Past Surgical History / Comment(s): Incision and drainage back and R groin r/t abscesses removed, bilateral eye surgery for retinal repair, R eye surgery for glaucoma-. fistula-left upper arm,cystoscopy with biopsy Past Anesthesia/Blood Transfusion Reactions: Postoperative Nausea & Vomiting (PONV) Additional Past Anesthesia/Blood Transfusion Reaction / Comment(s): pt stated has recieved blood transfusions-no known reaction. Past Psychological History: Anxiety Smoking Status: Never smoker Past Alcohol Use History: None Reported Past Drug Use History: None Reported - Past Family History Brother(s) Family Medical History: Cancer, Deep Vein Thrombosis (DVT) Additional Family Medical History / Comment(s): colon Father Family Medical History: Cancer Additional Family Medical History / Comment(s): Bladder cancer in father. Mother Additional Family Medical History / Comment(s): Mother of brain aneurysm Medications and Allergies Home Medications Medication Instructions Recorded Confirmed Type carvediloL [Coreg] 25 mg PO BID 06/27/20 10/01/22 History Pantoprazole [Protonix] 40 mg PO DAILY 10/08/20 10/01/22 History Calcium Acetate [PhosLo] 1,334 mg PO BID-W/MEALS 03/01/21 10/01/22 History Sevelamer [Renvela] 3,200 mg PO BID-W/MEALS 09/05/21 10/01/22 History Insulin Glargine,Hum.rec.anlog 40 unit SQ DAILY 10/28/21 10/01/22 History [Basaglar Kwikpen U-100] Dulaglutide [Trulicity] 0.75 mg SQ WE 07/13/22 10/01/22 History Insulin Aspart [NovoLOG Flexpen] 10 units SQ AC-TID MDD 50 UNITS 07/13/22 10/01/22 History Nephro-Lori 0.8 mg PO DAILY 07/13/22 10/01/22 History Acetaminophen Tab [Tylenol] 650 mg PO Q6HR PRN tab 07/16/22 10/01/22 Rx diazePAM [Valium] 5 mg PO TID PRN 3 Days #9 tab 08/25/22 10/01/22 Rx Cyclobenzaprine [Flexeril] 5 mg PO TID PRN #15 tablet 09/30/22 10/01/22 Rx Docusate [Colace] 100 mg PO TUTHSA 09/30/22 10/01/22 History Insulin Aspart [NovoLOG Flexpen] See Protocol SQ AC-TID PRN MDD 50 09/30/22 10/01/22 History UNITS Lotemax 0.5% Eye Ointment 1 applic RIGHT EYE Q48H 09/30/22 10/01/22 History prednisoLONE ACETATE 1% OPHTH 1 drop RIGHT EYE DAILY 09/30/22 10/01/22 History [Pred Forte 1%] Allergies Allergy/AdvReac Type Severity Reaction Status Date / Time peanut Allergy Anaphylaxis Verified 10/01/22 07:13 Physical Exam Vitals: Vital Signs Temp Pulse Pulse Resp BP BP Pulse Ox 10/01/22 07:00 97.8 F 98 18 150/88 95 10/01/22 04:27 98.4 F 90 20 150/79 98 10/01/22 04:05 81 15 141/77 98 10/01/22 01:13 98.1 F 78 15 138/83 100 Intake and Output 09/30/22 10/01/22 10/01/22 22:59 06:59 14:59 Intake Total 222 Output Total 350 Balance -350 222 Intake: Oral 222 Output: Urine 350 Other: Weight 136.078 kg Patient is awake, complaining of back pain and turned to the side. Examination of the heart S1 and S2 Examination of the lungs bilateral breath sounds are heard Abdomen is soft nontender Significant tenderness noted in the back muscles appear to be status Examination of the lower extremities shows no significant edema Results - Lab Results Most recent lab results Calcium 9.1 mg/dL (8.4-10.2) 10/01/22 01:35 10/01/22 01:35 10/01/22 01:35 Assessment and Plan Assessment: 1. End-stage renal disease maintained on hemodialysis on a Wednesday schedule 2. CK D mineral bone disorder 3. Severe back pain with unremarkable CT of the abdomen done on 09/30/2022 4. Hypertension Plan: Hemodialysis today Continue phosphate binders Pain control Consider orthopedic consult
[2022-10-01 13:03] LABS: Glucose,Whole Blood 223 mg/dL (70-110)
[2022-10-01] MEDS ORDERED: ORPHENADRINE 30 MG/ML 2 ML VIAL IVP STA (13:41)
[2022-10-01] MEDS ORDERED: methylPREDNISolone SOD SUCCI 125 MG/2 ML VIAL IV STA (13:41)
[2022-10-01] MEDS ORDERED: KETOROLAC 15 MG/ML 1 ML VIAL IVP STA (13:41)
[2022-10-01 17:01] LABS: Glucose,Whole Blood 131 mg/dL (70-110)
--- NOTE | 2022-10-01 17:05 | P.PN ---
Subjective Progress Note Date: 10/01/22 Hospital course: Patient is a very pleasant 52-year-old male with a past medical history of end- stage renal disease on dialysis Tuesdays//Saturdays, hypertension, diabetes mellitus, fibromyalgia, and chronic lower back pain. Patient presented to the emergency department with a chief complaint of severe uncontrolled right lower lumbar flank pain radiating into posterior right upper thigh. He denies having any difficulties with urination, involuntary loss of urine or bowel, or experiencing any cell panic anesthesia as or numbness/tingling/weakness in his extremities. Patient reports chronic lower back pain and states that he was previously receiving cortisone injections for pain management. Patient reports this pain has exacerbated over the past couple days and is now debilitating. CT abdomen and pelvis completed 09/30/22 was negative for acute process. Urinalysis is negative. CMP consistent with ESRD with BUN 63, Cr 8.83, and GFR 6. Pt admitted under our services with consult to nephrology and orthospine surgery. Physical exam: Patient seen and fully evaluated at the bedside. Patient tearful reporting uncontrolled pain right lower lumbar region of back radiating into right posterior thigh. Additional pain medication orders placed at this time is morphine and Valium is reported not to have provided patient with any improvement. Order is being placed. CT lumbar spine and consult orthospine surgery. Vital signs reviewed and stable. General: Nontoxic, no distress and appears stated age. Derm: Skin warm and dry, normal coloration for ethnicity. Head: Atraumatic, normocephalic and symmetric. Eyes: EOMs intact, no lid lag, and anicteric sclera Mouth: no lip lesions, mucus membranes moist Cardiovascular: regular rate and rhythm with normal S1S2, no murmur, positive posterior tibial pulses bilaterally, and cap refill < 2 seconds. AV fistula left upper extremity with thrill and bruit present. Lungs: Respirations even, regular, and unlabored on room air. Lungs CTA bilaterally, no rhonchi, no rales, no wheezing, and no accessory muscle usage. Abdominal: obese abdomen soft, nontender to palpation, no guarding, no appreciable organomegaly Ext: ROM intact. No gross muscle atrophy, no edema, no contractures Neuro: Speech clear, face symmetrical and CN II-XII grossly intact with no noted focal neuro deficits Psych: Alert and oriented to person, place, time, and situation. Appropriate and pleasant affect. Assessment and Plan of Care: Intractable right sided lumbar pain -CT abdomen and pelvis negative for acute process. -CT lumbar spine without contrast to be obtained -Symptomatic care and pain management -Orthospine consulted, appreciate recommendations -Fall precautions End-stage renal disease -Nephrology following -Patient to undergo dialysis as scheduled later today -Urinalysis negative for infection Hypertension -Monitor vital signs and continue daily medication regimen with carvedilol Insulin-dependent diabetes mellitus -Glycemic protocol with NovoLog sliding scale. CODE STATUS: Full code DVT prophylaxis: Heparin Discussed with: Patient and RN Anticipated discharge date: 1-2 days, possibly tomorrow morning Anticipated discharge place: home A total of 33 minutes was spent on the care of this complex patient more than 50% of the time was spent in counseling and care coordination. Objective - Vital Signs Vital signs: Vital Signs Temp 97.8 F 10/01/22 07:00 Pulse 98 10/01/22 07:00 Resp 18 10/01/22 07:00 BP 150/88 10/01/22 07:00 Pulse Ox 95 10/01/22 07:00 FiO2 Intake & Output 09/30/22 10/01/22 10/01/22 18:59 06:59 18:59 Output Total 350 Balance -350 Weight 136.078 kg Output: Urine 350 - Labs CBC & Chem 7: 10/01/22 01:35 10/01/22 01:35 Labs: Abnormal Lab Results - Last 24 Hours (Table) 10/01/22 10/01/22 Range/Units 01:35 05:56 Chloride 93 L (98-107) mmol/L BUN 63 H (9-20) mg/dL Creatinine 8.83 H* (0.66-1.25) mg/dL Glucose 224 H (74-99) mg/dL POC Glucose (mg/dL) 202 H (70-110) mg/dL
--- NOTE | 2022-10-01 19:31 | CT ---
EXAMINATION TYPE: CT lumbar spine wo con DATE OF EXAM: 10/01/2022 COMPARISON: HISTORY: Low back pain CT DLP: 3255 mGycm Automated exposure control for dose reduction was used. Images obtained from the level of T12-S3 vertebra with no contrast. The lumbar vertebrae have normal alignment. There is degenerative disc space narrowing at L2-3 with m oderate hypertrophic anterior spurring. There is mild sclerosis. There is hypertrophic facet arthropa thy in the lumbar spine and more noticeable at L2-3. No compression fracture. No focal bone destructi on. There is no paraspinal mass. Sacroiliac joints are intact. IMPRESSION: Spondylotic changes at L2-3. No fracture seen. Lumbar spine appears unchanged compared to CT scan yes terday.
[2022-10-01 20:56] LABS: Glucose,Whole Blood 179 mg/dL (70-110)
[2022-10-02 06:33] LABS: Glucose,Whole Blood 250 mg/dL (70-110)
[2022-10-02] MEDS: INSULIN DETEMIR (LEVEMIR) 100 UNIT/ML SYR SQ SCH (06:35)
[2022-10-02] MEDS: CALCIUM ACETATE 667 MG TAB PO SCH (08:04)
[2022-10-02] MEDS: PANTOPRAZOLE 40 MG TABLET PO SCH (08:05)
[2022-10-02] MEDS: SEVELAMER 800 MG TAB PO SCH (08:06)
[2022-10-02] MEDS: carvediloL 12.5 MG TAB PO SCH (08:07)
[2022-10-02] MEDS: INSULIN ASPART (NovoLOG) 100 UNIT/ML VIAL SQ SCH ×3 (08:12→12:34)
[2022-10-02] MEDS: HEPARIN SODIUM,PORCINE/PF 5,000 UNIT/0.5 ML SYRINGE SQ SCH ×2 (08:16→16:14)
[2022-10-02] MEDS: diazePAM 5 MG TAB PO PRN (08:18)
[2022-10-02] MEDS ORDERED: ORPHENADRINE 30 MG/ML 2 ML VIAL IVP STA (09:40)
[2022-10-02] MEDS ORDERED: KETOROLAC 15 MG/ML 1 ML VIAL IVP STA (09:40)
--- NOTE | 2022-10-02 11:39 | P.PN ---
Subjective Patient is seen for follow-up for end-stage renal disease. He is sitting up on a chair today. Pain is slightly improved but still present. Patient tolerated hemodialysis well yesterday. UF 2.5 L. Objective - Vital Signs Vital signs: Vital Signs Temp 97.9 F 10/02/22 06:52 Pulse 75 10/02/22 08:02 Resp 16 10/02/22 06:52 BP 140/78 10/02/22 08:02 Pulse Ox 96 10/02/22 06:52 FiO2 Intake & Output 10/01/22 10/02/22 10/02/22 18:59 06:59 18:59 Intake Total 722 240 Output Total 2750 220 Balance -2027 Intake: Oral 222 240 Hemodialysis 500 Output: Urine 250 220 Hemodialysis 2500 Other: # Voids 1 - Exam Patient is awake, comfortable not in any acute distress Examination of the heart S1 and S2 Examination lungs bilateral breath sounds are heard Abdomen is soft nontender obese Tenderness present in the right back area Examination lower extremity shows no edema. - Labs CBC & Chem 7: 10/01/22 01:35 10/01/22 01:35 Labs: Abnormal Lab Results - Last 24 Hours (Table) 10/01/22 10/01/22 10/01/22 Range/Units 13:02 17:00 20:54 POC Glucose (mg/dL) 223 H 131 H 179 H (70-110) mg/dL 10/02/22 Range/Units 06:32 POC Glucose (mg/dL) 250 H (70-110) mg/dL Assessment and Plan Assessment: 1. End-stage renal disease maintained on hemodialysis on a Wednesday schedule 2. CK D mineral bone disorder 3. Severe back pain with unremarkable CT of the abdomen done on 09/30/2022 4. Hypertension Plan: Hemodialysis in a.m. if patient is not discharged Continue phosphate binders Pain control
[2022-10-02] MEDS ORDERED: DEXAMETHASONE SOD PHOSPHATE 4 MG/ML 1 ML VIAL IVP PRN (12:07)
--- NOTE | 2022-10-02 12:07 | P.CNOR ---
History of Present Illness - [facility] Consult date: 10/02/22 Requesting physician: Wild Traylor Consult reason: other (acute on chronic lower back pain) History of present illness: Patient is a 52-year-old male with a past medical history of end-stage renal disease, diabetes and chronic low back pain who presented the emergency department Karla Grajeda yesterday, 10/01/2022 with acute on chronic low back pain. Patient patient was seen at bedside this morning sitting up in chair with legs elevated. Orthopedics has been consult for acute on chronic lower back pain. Patient says he has had back pain ongoing for many years. Patient says he had to come in the hospital because it worsened recently. Patient says Wednesday morning he woke up from bed around 3 AM and had a severe sharp and stabbing back pain in the right lower back. Patient states sometimes there is radiation to the right buttocks. Patient says he did try to do some laundry but that only made the pain worse, therefore patient came in the hospital. Patient does have a history of end-stage renal disease for which she is on dialysis. Patient says he has received a series of steroid injections into the back previously. Patient says he has not had any spine surgeries in the past. Patient describes the pain as sharp and stabbing in nature. Patient denies chest pain, fever, shortness of breath, change in vision. Patient denies any saddle anesthesia. Past Medical History Past Medical History: Diabetes Mellitus, Dialysis, Eye Disorder, Fibromyalgia, Hypertension, Pneumonia, Pulmonary Embolus (PE), Renal Disease, Sleep Apnea/CPAP/BIPAP Additional Past Medical History / Comment(s): IDDM type II, neuropathy bilateral feet, chronic renal failure, anemia, chronic lower back and shoulders pain, herniated lumbar disk, glaucoma R eye, carpal tunnel syndrome bilaterally, bronchitis, PAULA with CPAP. Left drop foot,fistula left upper arm,hemodialysis ,, , History of Any Multi-Drug Resistant Organisms: MRSA Year Discovered:: 11/21/12 MDRO Source:: lower back Past Surgical History: Orthopedic Surgery Additional Past Surgical History / Comment(s): Incision and drainage back and R groin r/t abscesses removed, bilateral eye surgery for retinal repair, R eye surgery for glaucoma-. fistula-left upper arm,cystoscopy with biopsy Past Anesthesia/Blood Transfusion Reactions: Postoperative Nausea & Vomiting (PONV) Additional Past Anesthesia/Blood Transfusion Reaction / Comm: pt stated has recieved blood transfusions-no known reaction. Past Psychological History: Anxiety Smoking Status: Never smoker Past Alcohol Use History: None Reported Past Drug Use History: None Reported - Past Family History Brother(s) Family Medical History: Cancer, Deep Vein Thrombosis (DVT) Additional Family Medical History / Comment(s): colon Father Family Medical History: Cancer Additional Family Medical History / Comment(s): Bladder cancer in father. Mother Additional Family Medical History / Comment(s): Mother of brain aneurysm Medications and Allergies Home Medications Medication Instructions Recorded Confirmed Type carvediloL [Coreg] 25 mg PO BID 06/27/20 10/01/22 History Pantoprazole [Protonix] 40 mg PO DAILY 10/08/20 10/01/22 History Calcium Acetate [PhosLo] 1,334 mg PO BID-W/MEALS 03/01/21 10/01/22 History Sevelamer [Renvela] 3,200 mg PO BID-W/MEALS 09/05/21 10/01/22 History Insulin Glargine,Hum.rec.anlog 40 unit SQ DAILY 10/28/21 10/01/22 History [Basaglar Kwikpen U-100] Dulaglutide [Trulicity] 0.75 mg SQ WE 07/13/22 10/01/22 History Insulin Aspart [NovoLOG Flexpen] 10 units SQ AC-TID MDD 50 UNITS 07/13/22 10/01/22 History Nephro-Lori 0.8 mg PO DAILY 07/13/22 10/01/22 History Acetaminophen Tab [Tylenol] 650 mg PO Q6HR PRN tab 07/16/22 10/01/22 Rx diazePAM [Valium] 5 mg PO TID PRN 3 Days #9 tab 08/25/22 10/01/22 Rx Cyclobenzaprine [Flexeril] 5 mg PO TID PRN #15 tablet 09/30/22 10/01/22 Rx Docusate [Colace] 100 mg PO TUTHSA 09/30/22 10/01/22 History Insulin Aspart [NovoLOG Flexpen] See Protocol SQ AC-TID PRN MDD 50 09/30/22 10/01/22 History UNITS Lotemax 0.5% Eye Ointment 1 applic RIGHT EYE Q48H 09/30/22 10/01/22 History prednisoLONE ACETATE 1% OPHTH 1 drop RIGHT EYE DAILY 09/30/22 10/01/22 History [Pred Forte 1%] Allergies Allergy/AdvReac Type Severity Reaction Status Date / Time peanut Allergy Anaphylaxis Verified 10/01/22 07:13 Physical Examination Negative for any open fractures, significant ulcers/ecchymosis/erythema. Sensation is equal, symmetric, intact throughout the upper and lower extremities. Patient does have moderate tenderness to palpation throughout the lumbar spine at midline. Patient does have severe tenderness to palpation along the paraspinal region on the right side. Patient does have positive CVA tenderness on the right. Nontender to palpation throughout rest of exam. Patient does have full range of motion, right upper extremity on exam. Patient does have full range of motion left upper extremity and elbow flexion/extension and wrist flexion/extension. Patient unable to raise left shoulder. Limited range of motion in external/internal rotation. Patient does have limited range of motion in the bilateral lower extremities and hip flexion/extension due to pain. Patient does have full range of motion bilateral lower extremities and knee flexion/extension and right ankle dorsi/plantar flexion. Patient does have limited dorsiflexion in the left ankle. 4/5 in resisted bilateral hip flexion/extension. 5/5 in resisted bilateral knee flexion/extension and right ankle dorsi/plantar flexion.4-/5 in resisted left ankle dorsiflexion. Right upper extremity 5/5 in all major motor groups. Left shoulder 4-/5 in resisted f orward elevation, abduction, internal/external rotation. 5/5 in resisted left elbow flexion extension in left wrist flexion/extension. Radial pulses intact bilaterally. Cap refill under 3 seconds in digits upper extremities. Negative Homans bilaterally. Negative Param bilaterally. Negative clonus bilaterally. Results - Labs Labs: Abnormal Lab Results - Last 24 Hours (Table) 10/01/22 10/01/22 10/01/22 Range/Units 13:02 17:00 20:54 POC Glucose (mg/dL) 223 H 131 H 179 H (70-110) mg/dL 10/02/22 Range/Units 06:32 POC Glucose (mg/dL) 250 H (70-110) mg/dL H & H 11/03/22 Range/Units 01:35 Hgb 14.4 (13.0-17.5) gm/dL Hct 43.4 (39.0-53.0) % Result Diagrams: 10/01/22 01:35 10/01/22 01:35 - Diagnostic results CT Scan - lumbar: report reviewed, image reviewed (CT of lumbar spine reviewed. There is some bone spurs present anteriorly on L2 and L3. Negative for any vertebral body compression fractures. There is some lumbar spondylosis evident and degenerative disc disease. Negative for any moderate to severe spinal stenosis in the lumbar spine) Assessment and Plan Assessment: 1. Low back pain; right sided flank pain; DDD 2. ESRD Plan: 1. Low back pain; right sided flank pain; DDD - patient still bedside this morning. CT of lumbar spine does demonstrate some lumbar spondylosis and degenerative disc disease. negative for any fractures. Patient is an end-stage renal disease. At this time we do not recommend any emergent/urgent orthopedic surgical intervention. Patient has received steroid injections in the lumbar spine in the past. Course of IV steroids may help control some of patient's symptoms. Patient may benefit from oral pain medication as well. For orthopedic standpoint, patient is stable for discharge. We do recommend patient to follow-up in the outpatient setting for further evaluation. At this time orthopedics is signing off. Please do not hesitate to contact us for any further questions. 2. Appreciate medical management 3. Pain management - Flexeril; Tylenol 4. DVT prophylaxis - heparin 5. GI prophylaxis - Protonix; Colace 6. PT/OT - weightbearing as tolerated with walker/cane 7. Appreciate consult Time with Patient: Less than 30
[2022-10-02 12:11] LABS: Glucose,Whole Blood 262 mg/dL (70-110)
[2022-10-02 13:33] VITALS: BP 107/72; PULSE 79; RESP 18; TEMP 97.8
--- NOTE | 2022-10-02 17:09 | P.DS ---
Providers Date of admission: 10/01/22 03:11 Expected date of discharge: 10/02/22 Attending physician: Ankit Alvarez MD Consults: 10/01/22 03:17 Consult Physician Routine Consulting Provider: Michelle Medeiros Consult Reason/Comments: ESRD Do you want consulting provider notified?: Yes 10/01/22 13:44 Consult Physician Routine Consulting Provider: Kvng Cantu Consult Reason/Comments: acute on chronic lower back pain Do you want consulting provider notified?: Yes Primary care physician: [facility] Course: Discharge Diagnosis: Intractable right sided lumbar pain radiating into right posterior thigh . CT abdomen and pelvis negative for acute process. CT lumbar spine without contrast revealed mild spondylitic changes L2 through L3. Patient was evaluated by orthospine surgery, recommend Medrol dose taper upon discharge as well as symptomatic care and pain management. Patient to continue with Flexeril/Valium he has been using at home for chronic back pain and discharged home with 3 day course of Antlers. Patient to follow-up in office with orthopedic specialists in 1 week. End-stage renal disease. Patient received dialysis on 10/01/22. Patient instructed to continue dialysis as scheduled on 10/03/22 and follow up outpatient with . Urinalysis was negative for any infection. Hypertension. Monitor vital signs and continue daily medication regimen with carvedilol Insulin-dependent diabetes mellitus. Continue with home insulin sliding scale and Trulicity. Hospital Course: Patient is a very pleasant 52-year-old male with a past medical history of end- stage renal disease on dialysis Tuesdays//Saturdays, hypertension, diabetes mellitus, fibromyalgia, and chronic lower back pain. Patient presented to the emergency department with a chief complaint of severe uncontrolled right lower lumbar flank pain radiating into posterior right upper thigh. He denies having any difficulties with urination, involuntary loss of urine or bowel, or experiencing any cell panic anesthesia as or numbness/tingling/weakness in his extremities. Patient reports chronic lower back pain and states that he was previously receiving cortisone injections for pain management. Patient reports this pain has exacerbated over the past couple days and is now debilitating. CT abdomen and pelvis completed 09/30/22 was negative for acute process. Urinalysis is negative. CMP consistent with ESRD with BUN 63, Cr 8.83, and GFR 6. Pt admitted under our services with consult to nephrology and orthospine surgery. CT lumbar spine without contrast revealed mild spondylitic changes L2 through L3. Patient was evaluated by orthospine surgery, recommend Medrol dose taper upon discharge as well as symptomatic care and pain management. Patient to continue with Flexeril/Valium he has been using at home for chronic back pain and discharged home with 3 day course of Antlers. Patient to follow-up in office with orthopedic specialists in 1 week. Patient received dialysis on 10/01/22. Patient instructed to continue dialysis as scheduled on 10/03/22 and follow up outpatient with . Physical exam: Vital signs reviewed and stable. General: Nontoxic, no distress and appears stated age. Derm: Skin warm and dry, normal coloration for ethnicity. Head: Atraumatic, normocephalic and symmetric. Eyes: EOMs intact, no lid lag, and anicteric sclera Mouth: no lip lesions, mucus membranes moist Cardiovascular: regular rate and rhythm with normal S1S2, no murmur, positive posterior tibial pulses bilaterally, and cap refill < [address] fistula left upper extremity with thrill and bruit present. Lungs: Respirations even, regular, and unlabored on room air. Lungs CTA bilaterally, no rhonchi, no rales, no wheezing, and no accessory muscle usage. Abdominal: obese abdomen soft, nontender to palpation, no guarding, no appreciable organomegaly Ext: ROM intact. No gross muscle atrophy, no edema, no contractures Neuro: Speech clear, face symmetrical and CN II-XII grossly intact with no noted focal neuro deficits Psych: Alert and oriented to person, place, time, and situation. Appropriate and pleasant affect. A total of 34 minutes of time were spent preparing this complex discharge summary. Pt was discharged on 10/02/22 at 4:49 PM I reviewed the documentation as provided by the SANTHOSH above, who is the original author of this note. I agree with the documented assessment and plan, with the following changes: none Patient Condition at Discharge: Stable Plan - Discharge Summary New Discharge Prescriptions: New methylPREDNISolone [Medrol Dose Pack] See Taper PO DIRECTED #1 packet HYDROcodone/APAP 7.5-325MG [Antlers 7.5-325] 1 tab PO Q4H PRN 3 Days #18 tab PRN Reason: Pain Continue carvediloL [Coreg] 25 mg PO BID Pantoprazole [Protonix] 40 mg PO DAILY Calcium Acetate [PhosLo] 1,334 mg PO BID-W/MEALS Sevelamer [Renvela] 3,200 mg PO BID-W/MEALS Insulin Glargine,Hum.rec.anlog [Basaglar Kwikpen U-100] 40 unit SQ DAILY Nephro-Lori 0.8 mg PO DAILY diazePAM [Valium] 5 mg PO TID PRN 3 Days #9 tab PRN Reason: Spasms Cyclobenzaprine [Flexeril] 5 mg PO TID PRN #15 tablet PRN Reason: Pain prednisoLONE ACETATE 1% OPHTH [Pred Forte 1%] 1 drop RIGHT EYE DAILY Lotemax 0.5% Eye Ointment 1 applic RIGHT EYE Q48H Insulin Aspart [NovoLOG Flexpen] See Protocol SQ AC-TID PRN MDD 50 UNITS PRN Reason: HIGH BLOOD SUGAR Dulaglutide [Trulicity] 0.75 mg SQ WE Insulin Aspart [NovoLOG Flexpen] 10 units SQ AC-TID MDD 50 UNITS Acetaminophen Tab [Tylenol] 650 mg PO Q6HR PRN tab PRN Reason: Fever And/ Or Pain Docusate [Colace] 100 mg PO TUTHSA Discharge Medication List carvediloL [Coreg] 25 mg PO BID 06/27/20 [History] Pantoprazole [Protonix] 40 mg PO DAILY 10/08/20 [History] Calcium Acetate [PhosLo] 1,334 mg PO BID-W/MEALS 03/01/21 [History] Sevelamer [Renvela] 3,200 mg PO BID-W/MEALS 09/05/21 [History] Insulin Glargine,Hum.rec.anlog [Basaglar Kwikpen U-100] 40 unit SQ DAILY 10/28/21 [History] Dulaglutide [Trulicity] 0.75 mg SQ WE 07/13/22 [History] Insulin Aspart [NovoLOG Flexpen] 10 units SQ AC-TID MDD 50 UNITS 07/13/22 [History] Nephro-Olri 0.8 mg PO DAILY 07/13/22 [History] Acetaminophen Tab [Tylenol] 650 mg PO Q6HR PRN tab 07/16/22 [Rx] diazePAM [Valium] 5 mg PO TID PRN 3 Days #9 tab 08/25/22 [Rx] Cyclobenzaprine [Flexeril] 5 mg PO TID PRN #15 tablet 09/30/22 [Rx] Docusate [Colace] 100 mg PO TUTHSA 09/30/22 [History] Insulin Aspart [NovoLOG Flexpen] See Protocol SQ AC-TID PRN MDD 50 UNITS 09/30/22 [History] Lotemax 0.5% Eye Ointment 1 applic RIGHT EYE Q48H 09/30/22 [History] prednisoLONE ACETATE 1% OPHTH [Pred Forte 1%] 1 drop RIGHT EYE DAILY 09/30/22 [History] HYDROcodone/APAP 7.5-325MG [Antlers 7.5-325] 1 tab PO Q4H PRN 3 Days #18 tab 10/02/22 [Rx] methylPREDNISolone [Medrol Dose Pack] See Taper PO DIRECTED #1 packet 10/02/22 [Rx] Follow up Appointment(s)/Referral(s): Michelle Medeiros MD [STAFF PHYSICIAN] - 1 Week Sharri Mckeon MD [Primary Care Provider] - 1-2 days Kvng Cantu DO [Doctor of Osteopathic Medicine] - 1 Week Activity/Diet/Wound Care/Special Instructions: Activity: As tolerated. Take breaks as needed. Diet: Continue Renal, Heart healthy and carb consistent diet. Avoid salts, or foods with hidden salts such as canned or boxed foods and frozen dinners. Extra salt makes your heart work harder and traps the fluid in your body for longer. Special Instructions: Take all of your medications as directed and remember to keep all of your doctor's appointments and follow-up as needed. Please resume your dialysis as scheduled tomorrow at outpatient dialysis center and follow up with Dr. Medeiros in office. Thank you for allowing us to participate in your care, it was truly a pleasure having you for our patient!!! Discharge Disposition: HOME SELF-CARE
[2022-10-02 17:19] LABS: Glucose,Whole Blood 276 mg/dL (70-110)
== END 2022-10-02 17:40 | disposition home or self-care (01) ==
LOC: EC 01:03 → 6NMEDSUR 03:11
PROVIDERS: ADMIT Internal Medicine; ATTEND Internal Medicine
DX: E11.22 Type 2 diabetes mellitus with diabetic chronic kidney disease (principal); I12.0 Hypertensive chronic kidney disease with stage 5 chronic kidney disease or end stage renal disease; N18.6 End stage renal disease; Z99.2 Dependence on renal dialysis; E11.42 Type 2 diabetes mellitus with diabetic polyneuropathy; D63.1 Anemia in chronic kidney disease; M89.8X9 Other specified disorders of bone, unspecified site; G47.33 Obstructive sleep apnea (adult) (pediatric); M79.7 Fibromyalgia; Z86.711 Personal history of pulmonary embolism; Z87.01 Personal history of pneumonia (recurrent); M51.26 Other intervertebral disc displacement, lumbar region; G89.29 Other chronic pain; M47.816 Spondylosis without myelopathy or radiculopathy, lumbar region; M25.519 Pain in unspecified shoulder; G56.03 Carpal tunnel syndrome, bilateral upper limbs; M21.372 Foot drop, left foot; E66.9 Obesity, unspecified; Z68.41 Body mass index [BMI] 40.0-44.9, adult; Z86.14 Personal history of Methicillin resistant Staphylococcus aureus infection; Z98.890 Other specified postprocedural states; F41.9 Anxiety disorder, unspecified; Z82.49 Family history of ischemic heart disease and other diseases of the circulatory system; Z80.52 Family history of malignant neoplasm of bladder; Z79.85 Long-term (current) use of injectable non-insulin antidiabetic drugs; Z79.4 Long term (current) use of insulin; Z79.899 Other long term (current) drug therapy; Z91.010 Allergy to peanuts
CPT/HCPCS: 90935; 96376 ×3; 96372 ×2; 96375 ×2; 96365; 99285; 36415; 93005; 80053; 85025; 72131; G0378 ×2; J2270; J2360 ×2; J2930; J3360; J0131; J1885 ×2; J1644 ×2

== ENCOUNTER 2023-07-01 08:52 | Observation (INO) | payer MEDICARE, OTHER ==
[2023-07-01] MEDS ORDERED: NITROGLYCERIN OINT 1 INCH/GM PACKET TOPICAL STA (09:10)
[2023-07-01] MEDS ORDERED: ASPIRIN 81 MG PO STA (09:10)
[2023-07-01] MEDS ORDERED: LORazepam 2 MG/ML INJ IV STA (09:12)
[2023-07-01] MEDS ORDERED: HYDROmorphone 0.5 MG/0.5 ML SYRINGE IVP STA (09:12)
--- NOTE | 2023-07-01 09:50 | ED ---
General Adult HPI - General Chief complaint: Chest Pain Stated complaint: Chest Pain Time Seen by Provider: 07/01/23 09:00 Source: patient, RN notes reviewed, old records reviewed Mode of arrival: ambulatory Limitations: no limitations - History of Present Illness Initial comments: This a 52-year-old male who presents emergency Department complaining of chest pain. Patient states she was in dialysis for about 2 hours and he started having chest pain on the left side became across the front of his chest. Patient states he also became very anxious that point in time. Patient denies any radiation of the pain except across the front of his chest. Patient denies any shortness of breath or difficulty breathing. Patient has a diaphoretic episode. Patient denies any nausea. Patient denies any near syncopal or syncopal episodes. Patient denies being lightheaded. Patient denies headache patient denies numbness weakness. Patient denies abdominal pain patient denies nausea vomiting diarrhea. - Related Data Home Medications Medication Instructions Recorded Confirmed carvediloL [Coreg] 25 mg PO BID 06/27/20 10/01/22 Pantoprazole [Protonix] 40 mg PO DAILY 10/08/20 10/01/22 Calcium Acetate [PhosLo] 1,334 mg PO BID-W/MEALS 03/01/21 10/01/22 Sevelamer [Renvela] 3,200 mg PO BID-W/MEALS 09/05/21 10/01/22 Insulin Glargine,Hum.rec.anlog 40 unit SQ DAILY 10/28/21 10/01/22 [Basaglar Kwikpen U-100] Dulaglutide [Trulicity] 0.75 mg SQ WE 07/13/22 10/01/22 Insulin Aspart [NovoLOG Flexpen] 10 units SQ AC-TID MDD 50 UNITS 07/13/22 10/01/22 Nephro-Lori 0.8 mg PO DAILY 07/13/22 10/01/22 Docusate [Colace] 100 mg PO TUTHSA 09/30/22 10/01/22 Insulin Aspart [NovoLOG Flexpen] See Protocol SQ AC-TID PRN MDD 50 09/30/22 10/01/22 UNITS Lotemax 0.5% Eye Ointment 1 applic RIGHT EYE Q48H 09/30/22 10/01/22 prednisoLONE ACETATE 1% OPHTH 1 drop RIGHT EYE DAILY 09/30/22 10/01/22 [Pred Forte 1%] Previous Rx's Medication Instructions Recorded Acetaminophen Tab [Tylenol] 650 mg PO Q6HR PRN tab 07/16/22 diazePAM [Valium] 5 mg PO TID PRN 3 Days #9 tab 08/25/22 Cyclobenzaprine [Flexeril] 5 mg PO TID PRN #15 tablet 09/30/22 HYDROcodone/APAP 7.5-325MG [Atwood 1 tab PO Q4H PRN 3 Days #18 tab 10/02/22 7.5-325] methylPREDNISolone [Medrol Dose See Taper PO DIRECTED #1 packet 10/02/22 Pack] Allergies Allergy/AdvReac Type Severity Reaction Status Date / Time peanut Allergy Anaphylaxis Verified 07/01/23 09:01 Review of Systems ROS Statement: Those systems with pertinent positive or pertinent negative responses have been documented in the HPI. ROS Other: All systems not noted in ROS Statement are negative. Past Medical History Past Medical History: Diabetes Mellitus, Dialysis, Eye Disorder, Fibromyalgia, Hypertension, Pneumonia, Pulmonary Embolus (PE), Renal Disease, Sleep Apnea/CPAP/BIPAP Additional Past Medical History / Comment(s): IDDM type II, neuropathy bilateral feet, chronic renal failure, anemia, chronic lower back and shoulders pain, herniated lumbar disk, glaucoma R eye, carpal tunnel syndrome bilaterally, bronchitis, PAULA with CPAP. Left drop foot,fistula left upper arm,hemodialysis ,, , History of Any Multi-Drug Resistant Organisms: MRSA Date of last positivie culture/infection: 11/21/12 MDRO Source:: lower back Past Surgical History: Orthopedic Surgery Additional Past Surgical History / Comment(s): Incision and drainage back and R groin r/t abscesses removed, bilateral eye surgery for retinal repair, R eye s urgery for glaucoma-. fistula-left upper arm,cystoscopy with biopsy Past Anesthesia/Blood Transfusion Reactions: Postoperative Nausea & Vomiting (PONV) Additional Past Anesthesia/Blood Transfusion Reaction / Comment(s): pt stated has recieved blood transfusions-no known reaction. Past Psychological History: Anxiety Smoking Status: Never smoker Past Alcohol Use History: None Reported Past Drug Use History: None Reported - Past Family History Brother(s) Family Medical History: Cancer, Deep Vein Thrombosis (DVT) Additional Family Medical History / Comment(s): colon Father Family Medical History: Cancer Additional Family Medical History / Comment(s): Bladder cancer in father. Mother Additional Family Medical History / Comment(s): Mother of brain aneurysm General Exam - General Exam Comments Initial Comments: GENERAL: Patient is well-developed and well-nourished. Patient is nontoxic and well-hydrated and is in mild distress. ENT: Neck is soft and supple. No significant lymphadenopathy is noted. Oropharynx is clear. Moist mucous membranes. Neck has full range of motion without eliciting any pain. EYES: The sclera were anicteric and conjunctiva were pink and moist. Extraocular movements were intact and pupils were equal round and reactive to light. Eyelids were unremarkable. PULMONARY: Unlabored respirations. Good breath sounds bilaterally. No audible rales rhonchi or wheezing was noted. CARDIOVASCULAR: There is a regular rate and rhythm without any murmurs gallops or rubs. ABDOMEN: Soft and nontender with normal bowel sounds. SKIN: Skin is clear with no lesions or rashes and otherwise unremarkable. NEUROLOGIC: Patient is alert and oriented x3. Cranial nerves II through XII are grossly intact. Motor and sensory are also intact. Normal speech, volume and content. Symmetrical smile. MUSCULOSKELETAL: Normal extremities with adequate strength and full range of motion. No lower extremity swelling or edema. No calf tenderness. LYMPHATICS: No significant lymphadenopathy is noted PSYCHIATRIC: Normal psychiatric evaluation. Limitations: no limitations Course Vital Signs 07/01/23 08:54 Temperature 98.5 F Pulse Rate 78 Respiratory 18 Rate Blood Pressure 162/80 O2 Sat by Pulse 100 Oximetry Medical Decision Making - Medical Decision Making EKG is interpreted by myself EKG shows sinus rhythm at 71 bpm PA interval is 170 QRS is 82 QT interval 42 QTC is 425 per patient's EKG shows minimal ST segment elevation in leads V1 and V2 and V3 when compared to an old EKG there are seen previously. Was pt. sent in by a medical professional or institution (, PA, COATINGS INSPECTOR, urgent care, hospital, or retirement...) When possible be specific @ -Patient was sent in by the dialysis center Did you speak to anyone other than the patient for history (EMS, parent, family, police, friend...)? What history was obtained from this source @ -[No] Did you review nursing and triage notes (agree or disagree)? Why? @ -[I reviewed and agree with nursing and triage notes] Were old charts reviewed (outside hosp., previous admission, EMS record, old EKG, old radiological studies, urgent care reports/EKG's, retirement records)? Report findings @ -I reviewed prior lab work prior radiological studies. Differential Diagnosis (chest pain, altered mental status, abdominal pain women, abdominal pain men, vaginal bleeding, weakness, fever, dyspnea, syncope, headache, dizziness, GI bleed, back pain, seizure, CVA, palpatations, mental health, musculoskeletal)? @ -Differential Chest Pain: Stable Angina, Unstable Angina, STEMI, NSTEMI Aortic Dissection, Pneumothorax, Musculoskeletal, Esophageal Spasm GERD, Cholecystitis, Pancreatitis, Zoster, this is not meant to be an all-inclusive list. EKG interpreted by me (3pts min.). @ -[As above] X-rays interpreted by me (1pt min.). @ -Chest x-ray shows no acute abnormality. CT interpreted by me (1pt min.). @ -[None done] U/S interpreted by me (1pt. min.). @ -[None done] What testing was considered but not performed or refused? (CT, X-rays, U/S, labs)? Why? @ -[None] What meds were considered but not given or refused? Why? @ -[None] Did you discuss the management of the patient with other professionals (professionals i.e. , PA, COATINGS INSPECTOR, lab, RT, psych nurse, professor of social work, bottle blowing machine tender, teacher, motor equipment commanding officer, returned case inspector)? Give summary @ -I spoke with [facility] hospitalist and they agreed to admit the patient Was smoking cessation discussed for >3mins.? @ -[No] Was critical care preformed (if so, how long)? @ -[No] Were there social determinants of health that impacted care today? How? (Homeles sness, low income, unemployed, alcoholism, drug addiction, transportation, low edu. Level, literacy, decrease access to med. care, fci, rehab)? @ -[No] Was there de-escalation of care discussed even if they declined (Discuss DNR or withdrawal of care, Hospice)? DNR status @ -[No] What co-morbidities impacted this encounter? (DM, HTN, Smoking, COPD, CAD, Cancer, CVA, ARF, Chemo, Hep., AIDS, mental health diagnosis, sleep apnea, morbid obesity)? @ -[None] Was patient admitted / discharged? Hospital course, mention meds given and route, prescriptions, significant lab abnormalities, going to OR and other pertinent info. @ -Patient's chest pain subsided while in the emergency department. Labs came back in a row within normal range except for his kidney function. I spoke with [facility] Hospitalist agreed to admit the patient and the patient consult cardiology and nephrology Undiagnosed new problem with uncertain prognosis? @ -[No] Drug Therapy requiring intensive monitoring for toxicity (Heparin, Nitro, Insulin, Cardizem)? @ -[No] Were any procedures done? @ -[No] Diagnosis/symptom? @ -Chest pain Acute, or Chronic, or Acute on Chronic? @ -Acute Uncomplicated (without systemic symptoms) or Complicated (systemic symptoms)? @ -Complicated Side effects of treatment? @ -[No] Exacerbation, Progression, or Severe Exacerbation? @ -[No] Poses a threat to life or bodily function? How? (Chest pain, [place], [place], pneumonia, PE, COPD, DKA, ARF, appy, cholecystitis, CVA, Diverticulitis, Homicidal, Suicidal, threat to staff... and all critical care pts) @ -Yes this could lead to an KS in lead to end organ dysfunction - Lab Data Result diagrams: 07/01/23 09:34 07/01/23 09:34 Lab Results 07/01/23 07/01/23 07/01/23 Range/Units 09:34 09:34 09:34 WBC 5.4 (3.8-10.6) k/uL RBC 4.40 (4.30-5.90) m/uL Hgb 13.3 (13.0-17.5) gm/dL Hct 39.5 (39.0-53.0) % MCV 89.9 (80.0-100.0) fL MCH 30.3 (25.0-35.0) pg MCHC 33.7 (31.0-37.0) g/dL RDW 13.1 (11.5-15.5) % Plt Count 136 L (150-450) k/uL MPV 8.8 Neutrophils % 50 % Lymphocytes % 40 % Monocytes % 5 % Eosinophils % 2 % Basophils % 0 % Neutrophils # 2.7 (1.3-7.7) k/uL Lymphocytes # 2.2 (1.0-4.8) k/uL Monocytes # 0.3 (0-1.0) k/uL Eosinophils # 0.1 (0-0.7) k/uL Basophils # 0.0 (0-0.2) k/uL PT 10.6 (9.0-12.0) sec INR 1.0 (<1.2) APTT 45.5 H (22.0-30.0) sec Sodium 138 (137-145) mmol/L Potassium 4.4 (3.5-5.1) mmol/L Chloride 101 (98-107) mmol/L Carbon Dioxide 31 H (22-30) mmol/L Anion Gap 6 mmol/L BUN 46 H (9-20) mg/dL Creatinine 7.32 H* (0.66-1.25) mg/dL Est GFR (CKD-EPI)AfAm 9 (>60 ml/min/1.73 sqM) Est GFR (CKD-EPI)NonAf 8 (>60 ml/min/1.73 sqM) Glucose 135 H (74-99) mg/dL Calcium 8.7 (8.4-10.2) mg/dL Magnesium 2.1 (1.6-2.3) mg/dL Total Bilirubin 1.0 (0.2-1.3) mg/dL AST 20 (17-59) U/L ALT 23 (4-49) U/L Alkaline Phosphatase 94 (38-126) U/L Troponin I (0.000-0.034) ng/mL NT-Pro-B Natriuret Pep 366 pg/mL Total Protein 6.5 (6.3-8.2) g/dL Albumin 3.5 (3.5-5.0) g/dL 07/01/23 Range/Units 09:34 WBC (3.8-10.6) k/uL RBC (4.30-5.90) m/uL Hgb (13.0-17.5) gm/dL Hct (39.0-53.0) % MCV (80.0-100.0) fL MCH (25.0-35.0) pg MCHC (31.0-37.0) g/dL RDW (11.5-15.5) % Plt Count (150-450) k/uL MPV Neutrophils % % Lymphocytes % % Monocytes % % Eosinophils % % Basophils % % Neutrophils # (1.3-7.7) k/uL Lymphocytes # (1.0-4.8) k/uL Monocytes # (0-1.0) k/uL Eosinophils # (0-0.7) k/uL Basophils # (0-0.2) k/uL PT (9.0-12.0) sec INR (<1.2) APTT (22.0-30.0) sec Sodium (137-145) mmol/L Potassium (3.5-5.1) mmol/L Chloride (98-107) mmol/L Carbon Dioxide (22-30) mmol/L Anion Gap mmol/L BUN (9-20) mg/dL Creatinine (0.66-1.25) mg/dL Est GFR (CKD-EPI)AfAm (>60 ml/min/1.73 sqM) Est GFR (CKD-EPI)NonAf (>60 ml/min/1.73 sqM) Glucose (74-99) mg/dL Calcium (8.4-10.2) mg/dL Magnesium (1.6-2.3) mg/dL Total Bilirubin (0.2-1.3) mg/dL AST (17-59) U/L ALT (4-49) U/L Alkaline Phosphatase (38-126) U/L Troponin I <0.012 (0.000-0.034) ng/mL NT-Pro-B Natriuret Pep pg/mL Total Protein (6.3-8.2) g/dL Albumin (3.5-5.0) g/dL Disposition Clinical Impression: Chest pain Disposition: ADMITTED IP TO THIS HOSP Referrals: Sharri Mckeon MD [Primary Care Provider] - 1-2 days Time of Disposition: 11:32
--- NOTE | 2023-07-01 10:01 | XR ---
EXAMINATION TYPE: XR chest 2V DATE OF EXAM: 07/01/2023 COMPARISON: 07/16/2022 TECHNIQUE: PA and lateral views submitted. HISTORY: Chest FINDINGS: The lungs are clear and there is no pneumothorax, pleural effusion, or focal pneumonia. Heart size normal and no overt failure. Osseous structures demonstrate hypertrophic and degenerative changes of the spine. Mild coarsening to the interstitium IMPRESSION: 1. Mild prominence of the interstitium may be related to reduced inspiration rather than interstitial pneumonitis correlate clinically.
[2023-07-01 10:02] LABS: Basophils % (A) 0 %; Eosinophils # (A) 0.1 k/uL (0-0.7); Eosinophils % (A) 2 %; HCT 39.5 % (39.0-53.0); HGB 13.3 gm/dL (13.0-17.5); Lymphocytes # (A) 2.2 k/uL (1.0-4.8); Lymphocytes % (A) 40 %; MCH 30.3 pg (25.0-35.0); MCHC 33.7 g/dL (31.0-37.0); MCV 89.9 fL (80.0-100.0); Mean Platelet Volume 8.8; Monocytes # (A) 0.3 k/uL (0-1.0); Monocytes % (A) 5 %; Neutrophils # (A) 2.7 k/uL (1.3-7.7); Neutrophils % (A) 50 %; Platelet Count 136 k/uL (150-450); RDW 13.1 % (11.5-15.5); WBC 5.4 k/uL (3.8-10.6)
[2023-07-01 10:10] LABS: Partial Thromboplastin Time 45.5 sec (22.0-30.0); Prothrombin Time 10.6 sec (9.0-12.0)
[2023-07-01 10:48] LABS: ALT 23 U/L (4-49); AST 20 U/L (17-59); African American GFR (CKD) 9 (>60 ml/min/1.73 sqM); Albumin 3.5 g/dL (3.5-5.0); Alkaline Phosphatase 94 U/L (38-126); Anion Gap 6 mmol/L; Blood Urea Nitrogen 46 mg/dL (9-20); Calcium 8.7 mg/dL (8.4-10.2); Carbon Dioxide 31 mmol/L (22-30); Chloride 101 mmol/L (98-107); Glucose 135 mg/dL (74-99); Magnesium 2.1 mg/dL (1.6-2.3); Non-African American GFR(CKD) 8 (>60 ml/min/1.73 sqM); Potassium 4.4 mmol/L (3.5-5.1); Sodium 138 mmol/L (137-145); Total Protein 6.5 g/dL (6.3-8.2)
[2023-07-01 10:55] LABS: NT-Pro-B-Type Natriuretic Pept 366 pg/mL
[2023-07-01] MEDS ORDERED: ONDANSETRON 4 MG/2 ML VIAL IVP PRN (11:29)
[2023-07-01] MEDS ORDERED: NITROGLYCERIN SL TABS 0.4 MG TAB SUBLINGUAL PRN (11:29)
[2023-07-01] MEDS ORDERED: ACETAMINOPHEN TAB 325 MG TAB PO PRN (11:29)
[2023-07-01] MEDS ORDERED: NALOXONE 0.4 MG/ML 1 ML VIAL IVP PRN (11:29)
--- NOTE | 2023-07-01 12:56 | P.CRDCN ---
History of Present Illness History of present illness: HISTORY OF PRESENT ILLNESS: This is a 52-year-old male with a past medical history significant for diabetes, hypertension, fibromyalgia, pulmonary embolism, sleep apnea, chronic kidney disease on hemodialysis. Patient follows in the office with Dr. Quijano. We have been asked to see the patient in consultation for chest pain. Patient examined at the bedside. Patient states he was at hemodialysis today when he developed chest pain. He states the pain was in the middle of his chest. He also reports significant back pain throughout his entire spine. He states that the pain started this morning. He states whenever he takes a deep breath the pain in his back is worsened. He states he was unable to finish his dialysis session today secondary to the pain and came to the ER for further evaluation. The patient also reports a lot of anxiety and states he is having a hard time controlling his anxiousness. The patient reports nausea which is chronic but no vomiting. The patient states he is going to [facility] to be evaluated for a kidney transplant. * EKG reveals sinus mechanism with ST elevation noted in V1V3, noted on previous EKGs. * Chest xray mild prominence of the interstitium may be related to reduced inspiration rather than interstitial pneumonitis * Laboratory data: WBC 5.4. Hemoglobin 13.3. Platelet count 136. Sodium 138. Potassium 4.4. BUN 46. Creatinine 7.32. Troponin negative 2. ProBNP 366. * Current home cardiac medications include carvedilol 25 mg twice a day * Most recent echocardiogram obtained in September 2020 revealed ejection fraction 50-55%, mild MR, mild TR * Patient underwent dobutamine stress test in September 2020 which was negative for ischemia REVIEW OF SYSTEMS: At the time of my exam: CONSTITUTIONAL: Denies fever or chills. HEENT: Denies blurred vision, vision changes, or eye pain. Denies hemoptysis CARDIOVASCULAR: Denies chest pain. Denies orthopnea. Denies PND. Denies palpitations RESPIRATORY: Denies shortness of breath. GASTROINTESTINAL: Denies abdominal pain. Denies nausea or vomiting. HEMATOLOGIC: Denies bleeding disorders. GENITOURINARY: Denies any blood in urine. SKIN: Denies pruitis. Denies rash. PHYSICAL EXAM: VITAL SIGNS: Reviewed. GENERAL: Well-developed in no acute distress. HEENT: Head is normocephalic. Pupils are equal, round. Sclerae anicteric. Mucous membranes of the mouth are moist. Neck supple. No JVD or thyromegaly LUNGS: Respirations even and unlabored. Lungs essentially clear to auscultation bilaterally. HEART: Regular rate and rhythm. S1 and S2 heard. ABDOMEN: Soft. Nondistended. Nontender. EXTREMITIES: Normal range of motion. No clubbing or cyanosis. Peripheral pulses intact. No lower extremity edema NEUROLOGIC: Awake and alert. Oriented x 3. ASSESSMENT: Chest pain, atypical, troponin negative 2 Back pain, acute on chronic End-stage renal disease on hemodialysis Hypertension Fibromyalgia History of pulmonary embolism Obstructive sleep apnea Diabetes Morbid obesity: BMI 42.5 PLAN: An acute coronary event has been ruled out Obtain 2-D echo to assess cardiac structure and function Patient to undergo dobutamine stress test tomorrow Nothing by mouth at midnight Hold carvedilol secondary to stress testing in the morning Further recommendations pending patient's course Nurse practitioner note has been reviewed by physician. Signing provider agrees with the documented findings, assessment, and plan of care. Past Medical History Past Medical History: Diabetes Mellitus, Dialysis, Eye Disorder, Fibromyalgia, Hypertension, Pneumonia, Pulmonary Embolus (PE), Renal Disease, Sleep Apnea/CPAP/BIPAP Additional Past Medical History / Comment(s): IDDM type II, neuropathy bilateral feet, chronic renal failure, anemia, chronic lower back and shoulders pain, herniated lumbar disk, glaucoma R eye, carpal tunnel syndrome bilaterally, bronchitis, PAULA with CPAP. Left drop foot,fistula left upper arm,hemodialysis ,, , History of Any Multi-Drug Resistant Organisms: MRSA Date of last positivie culture/infection: 11/21/12 MDRO Source:: lower back Past Surgical History: Orthopedic Surgery Additional Past Surgical History / Comment(s): Incision and drainage back and R groin r/t abscesses removed, bilateral eye surgery for retinal repair, R eye surgery for glaucoma-. fistula-left upper arm,cystoscopy with biopsy Past Anesthesia/Blood Transfusion Reactions: Postoperative Nausea & Vomiting (P ONV) Additional Past Anesthesia/Blood Transfusion Reaction / Comment(s): pt stated has recieved blood transfusions-no known reaction. Past Psychological History: Anxiety Smoking Status: Never smoker Past Alcohol Use History: None Reported Past Drug Use History: None Reported - Past Family History Brother(s) Family Medical History: Cancer, Deep Vein Thrombosis (DVT) Additional Family Medical History / Comment(s): colon Father Family Medical History: Cancer Additional Family Medical History / Comment(s): Bladder cancer in father. Mother Additional Family Medical History / Comment(s): Mother of brain aneurysm Medications and Allergies Home Medications Medication Instructions Recorded Confirmed Type carvediloL [Coreg] 25 mg PO BID 06/27/20 10/01/22 History Pantoprazole [Protonix] 40 mg PO DAILY 10/08/20 10/01/22 History Calcium Acetate [PhosLo] 1,334 mg PO BID-W/MEALS 03/01/21 10/01/22 History Sevelamer [Renvela] 3,200 mg PO BID-W/MEALS 09/05/21 10/01/22 History Insulin Glargine,Hum.rec.anlog 40 unit SQ DAILY 10/28/21 10/01/22 History [Basaglar Kwikpen U-100] Insulin Aspart [NovoLOG Flexpen] 10 units SQ AC-TID MDD 50 UNITS 07/13/22 10/01/22 History Insulin Aspart [NovoLOG Flexpen] See Protocol SQ AC-TID PRN MDD 50 09/30/22 10/01/22 History UNITS prednisoLONE ACETATE 1% OPHTH 1 drop RIGHT EYE DAILY 09/30/22 10/01/22 History [Pred Forte 1%] Famotidine [Pepcid] 20 mg PO DAILY 07/01/23 07/01/23 History Lidocaine-Prilocaine Cream [Emla 1 applic TOPICAL DAILY PRN 07/01/23 07/01/23 History Cream 2.5%/2.5%] Sevelamer [Renvela] 3,200 mg PO TID-W/MEALS PRN 07/01/23 07/01/23 History Vit B Comp No.3/Folic/C/Biotin 1 tab PO DAILY 07/01/23 07/01/23 History [Cassie-Lori Rx Tablet] diphenhydrAMINE [Benadryl] 25 - 50 mg PO QID PRN 07/01/23 07/01/23 History Allergies Allergy/AdvReac Type Severity Reaction Status Date / Time peanut Allergy Anaphylaxis Verified 07/01/23 12:03 Physical Exam Vitals: Vital Signs Temp Pulse Resp BP Pulse Ox 07/01/23 08:54 98.5 F 78 18 162/80 100 Intake and Output 06/30/23 07/01/23 07/01/23 22:59 06:59 14:59 Other: Weight 150 kg Results 07/01/23 09:34 07/01/23 09:34 Cardiac Enzymes 07/01/23 07/01/23 Range/Units 09:34 09:34 AST 20 (17-59) U/L Troponin I <0.012 (0.000-0.034) ng/mL Coagulation 07/01/23 Range/Units 09:34 PT 10.6 (9.0-12.0) sec APTT 45.5 H (22.0-30.0) sec CBC 07/01/23 Range/Units 09:34 WBC 5.4 (3.8-10.6) k/uL RBC 4.40 (4.30-5.90) m/uL Hgb 13.3 (13.0-17.5) gm/dL Hct 39.5 (39.0-53.0) % Plt Count 136 L (150-450) k/uL Comprehensive Metabolic Panel 07/01/23 Range/Units 09:34 Sodium 138 (137-145) mmol/L Potassium 4.4 (3.5-5.1) mmol/L Chloride 101 (98-107) mmol/L Carbon Dioxide 31 H (22-30) mmol/L BUN 46 H (9-20) mg/dL Creatinine 7.32 H* (0.66-1.25) mg/dL Glucose 135 H (74-99) mg/dL Calcium 8.7 (8.4-10.2) mg/dL AST 20 (17-59) U/L ALT 23 (4-49) U/L Alkaline Phosphatase 94 (38-126) U/L Total Protein 6.5 (6.3-8.2) g/dL Albumin 3.5 (3.5-5.0) g/dL Current Medications Generic Name Dose Route Start Last Admin Trade Name Freq PRN Reason Stop Dose Admin Acetaminophen 650 mg 07/01/23 11:29 Acetaminophen Tab 325 Mg Tab PO Q6HR PRN Mild Pain or Fever > 100.5 Aspirin 325 mg 07/02/23 09:00 Aspirin 325 Mg Tab PO DAILY LORI Naloxone HCl 0.2 mg 07/01/23 11:29 Naloxone 0.4 Mg/Ml 1 Ml Vial IVP Q2M PRN Opioid Reversal Nitroglycerin 0.4 mg 07/01/23 11:29 Nitroglycerin Sl Tabs 0.4 Mg Tab SUBLINGUAL Q5M PRN Chest Pain Ondansetron HCl 4 mg 07/01/23 11:29 Ondansetron 4 Mg/2 Ml Vial IVP Q8HR PRN Nausea And Vomiting Intake and Output 06/30/23 07/01/23 07/01/23 22:59 06:59 14:59 Other: Weight 150 kg Patient Weight 07/02/23 06:59 Weight 150 kg 07/01/23 09:34 07/01/23 09:34
[2023-07-01] MEDS ORDERED: CALCIUM ACETATE 667 MG TAB PO PRN (13:46)
[2023-07-01] MEDS ORDERED: HYDROcodone/APAP 5-325MG 1 EACH TAB PO PRN (13:47)
--- NOTE | 2023-07-01 14:35 | P.NPCON ---
History of Present Illness - Reason for Consult end stage renal disease - History of Present Illness Patient is a 52-year-old male with end-stage renal disease maintained on hemodialysis on a Wednesday schedule. He is admitted to the hospital from the dialysis unit due to complaints of chest pain. Patient also stated that he felt very anxious. His chest pain was significantly worse about 1 hour into treatment and patient was taken off and sent to the ER. Troponins are negative. No history of fever or cough. No nausea or vomiting. Review of Systems As per HPI Past Medical History Past Medical History: Diabetes Mellitus, Dialysis, Eye Disorder, Fibromyalgia, Hypertension, Pneumonia, Pulmonary Embolus (PE), Renal Disease, Sleep Apnea/CPAP/BIPAP Additional Past Medical History / Comment(s): IDDM type II, neuropathy bilateral feet, chronic renal failure, anemia, chronic lower back and shoulders pain, herniated lumbar disk, glaucoma R eye, carpal tunnel syndrome bilaterally, bronchitis, PAULA with CPAP. Left drop foot,fistula left upper arm,hemodialysis , , History of Any Multi-Drug Resistant Organisms: MRSA Date of last positivie culture/infection: 11/21/12 MDRO Source:: lower back Past Surgical History: Orthopedic Surgery Additional Past Surgical History / Comment(s): Incision and drainage back and R groin r/t abscesses removed, bilateral eye surgery for retinal repair, R eye surgery for glaucoma-. fistula-left upper arm,cystoscopy with biopsy Past Anesthesia/Blood Transfusion Reactions: Postoperative Nausea & Vomiting (PONV) Additional Past Anesthesia/Blood Transfusion Reaction / Comment(s): pt stated has recieved blood transfusions-no known reaction. Past Psychological History: Anxiety Smoking Status: Never smoker Past Alcohol Use History: None Reported Past Drug Use History: None Reported - Past Family History Brother(s) Family Medical History: Cancer, Deep Vein Thrombosis (DVT) Additional Family Medical History / Comment(s): colon Father Family Medical History: Cancer Additional Family Medical History / Comment(s): Bladder cancer in father. Mother Additional Family Medical History / Comment(s): Mother of brain aneurysm Medications and Allergies Home Medications Medication Instructions Recorded Confirmed Type carvediloL [Coreg] 25 mg PO BID 06/27/20 07/01/23 History Pantoprazole [Protonix] 40 mg PO DAILY 10/08/20 07/01/23 History Calcium Acetate [PhosLo] 1,334 mg PO TID-W/MEALS PRN 03/01/21 07/01/23 History Sevelamer [Renvela] 3,200 mg PO BID-W/MEALS 09/05/21 07/01/23 History Insulin Glargine,Hum.rec.anlog 40 unit SQ DAILY 10/28/21 07/01/23 History [Basaglar Kwikpen U-100] Insulin Aspart [NovoLOG Flexpen] 10 units SQ AC-TID MDD 50 UNITS 07/13/22 07/01/23 History Insulin Aspart [NovoLOG Flexpen] See Protocol SQ AC-TID PRN MDD 50 09/30/22 07/01/23 History UNITS prednisoLONE ACETATE 1% OPHTH 1 drop RIGHT EYE DAILY 09/30/22 07/01/23 History [Pred Forte 1%] Famotidine [Pepcid] 20 mg PO DAILY 07/01/23 07/01/23 History Lidocaine-Prilocaine Cream [Emla 1 applic TOPICAL DAILY PRN 07/01/23 07/01/23 History Cream 2.5%/2.5%] Sevelamer [Renvela] 3,200 mg PO TID-W/MEALS PRN 07/01/23 07/01/23 History Vit B Comp No.3/Folic/C/Biotin 1 tab PO DAILY 07/01/23 07/01/23 History [Cassie-Lori Rx Tablet] diphenhydrAMINE [Benadryl] 25 - 50 mg PO QID PRN 07/01/23 07/01/23 History Allergies Allergy/AdvReac Type Severity Reaction Status Date / Time peanut Allergy Anaphylaxis Verified 07/01/23 12:03 Physical Exam Vitals: Vital Signs Temp Pulse Resp BP Pulse Ox 07/01/23 13:31 97.6 F 84 20 144/83 99 07/01/23 08:54 98.5 F 78 18 162/80 100 Intake and Output 06/30/23 07/01/23 07/01/23 22:59 06:59 14:59 Other: Weight 150 kg Patient is awake, comfortable, no acute distress Examination of the heart S1 and S2 Examination of the lungs bilateral breath sounds are heard Abdomen is soft nontender Examination of lower extremities shows edema 1+ bilaterally. Left arm AV fistula with needles still in [employer] exam grossly intact Results - Lab Results Most recent lab results Calcium 8.7 mg/dL (8.4-10.2) 07/01/23 09:34 Magnesium 2.1 mg/dL (1.6-2.3) 07/01/23 09:34 08 09:34 08 09:34 Assessment and Plan Assessment: 1. End-stage renal disease on hemodialysis on a Wednesday schedule via left arm AV fistula 2. Chest pain atypical with negative troponins being followed by cardiology 3. CK D mineral bone disorder 4. Type 2 diabetes Gastroesophageal reflux disease maintained on proton ex Plan: Hemodialysis today for about 2-1/2 hours with goal UF about 1-2 L. Resume phosphate binders, PhosLo and Renvela
--- NOTE | 2023-07-01 16:00 | P.HPIM ---
History of Present Illness H&P Date: 07/01/23 Chief Complaint: Chest pain History of presenting illness * 52-year-old gentleman with multiple comorbidities including history of sleep apnea, end-stage renal disease on hemodialysis, hypertension, diabetes mellitus, obesity, fibromyalgia presented to the emergency department while having chest pain during dialysis. Patient was in the dialysis session when he started to have midsternal chest pain radiated to his back. Patient states the pain is worse when he takes a deep breath. He was unable to finish his session of hemodialysis and was sent into the emergency for further evaluation * Workup initiated in ER included a chest x-ray which showed bilateral interstitial prominence likely secondary to fluid overload. EKG showed ST segment changes in V1 to V3 similar to previous EKGs. * Blood was obtained showed creatinine of 7.32 potassium of 4.4 sodium of 138 serial troponins were obtained which were negative REVIEW OF SYSTEMS: Chest pain, back pain CONSTITUTIONAL: No fever, no malaise, no fatigue. HEENT: No recent visual problems or hearing problems. Denied any sore throat. CARDIOVASCULAR: No , orthopnea, PND, no palpitations, no syncope. PULMONARY: No shortness of breath, no cough, no hemoptysis. GASTROINTESTINAL: No diarrhea, no nausea, no vomiting, no abdominal pain. NEUROLOGICAL: No headaches, no weakness, no numbness. HEMATOLOGICAL: Denies any bleeding or petechiae. GENITOURINARY: Denies any burning micturition, frequency, or urgency. MUSCULOSKELETAL/RHEUMATOLOGICAL: Denies any joint pain, swelling, or any muscle pain. ENDOCRINE: Denies any polyuria or polydipsia. The rest of the 14-point review of systems is negative. PHYSICAL EXAMINATION: GENERAL: The patient is alert and oriented x3, not in any acute distress. Well developed, well nourished. HEENT: Pupils are round and equally reacting to light. EOMI. No scleral icterus. No conjunctival pallor. Normocephalic, atraumatic. No pharyngeal erythema. No thyromegaly. CARDIOVASCULAR: S1 and S2 present. No murmurs, rubs, or gallops. PULMONARY: Chest is clear to auscultation, no wheezing or crackles. ABDOMEN: Soft, nontender, nondistended, normoactive bowel sounds. No palpable organomegaly. MUSCULOSKELETAL: No joint swelling or deformity. EXTREMITIES: No cyanosis, clubbing, or pedal edema. NEUROLOGICAL: Gross neurological examination did not reveal any focal deficits. SKIN: No rashes. Past Medical History Past Medical History: Diabetes Mellitus, Dialysis, Eye Disorder, Fibromyalgia, Hypertension, Pneumonia, Pulmonary Embolus (PE), Renal Disease, Sleep Apnea/CPAP/BIPAP Additional Past Medical History / Comment(s): IDDM type II, neuropathy bilateral feet, chronic renal failure, anemia, chronic lower back and shoulders pain, herniated lumbar disk, glaucoma R eye, carpal tunnel syndrome bilaterally, bronchitis, PAULA with CPAP. Left drop foot,fistula left upper arm,hemodialysis ,, , History of Any Multi-Drug Resistant Organisms: MRSA Date of last positivie culture/infection: 11/21/12 MDRO Source:: lower back Past Surgical History: Orthopedic Surgery Additional Past Surgical History / Comment(s): Incision and drainage back and R groin r/t abscesses removed, bilateral eye surgery for retinal repair, R eye surgery for glaucoma-. fistula-left upper arm,cystoscopy with biopsy Past Anesthesia/Blood Transfusion Reactions: Postoperative Nausea & Vomiting (PONV) Additional Past Anesthesia/Blood Transfusion Reaction / Comment(s): pt stated has recieved blood transfusions-no known reaction. Past Psychological History: Anxiety Smoking Status: Never smoker Past Alcohol Use History: None Reported Past Drug Use History: None Reported - Past Family History Brother(s) Family Medical History: Cancer, Deep Vein Thrombosis (DVT) Additional Family Medical History / Comment(s): colon Father Family Medical History: Cancer Additional Family Medical History / Comment(s): Bladder cancer in father. Mother Additional Family Medical History / Comment(s): Mother of brain aneurysm Medications and Allergies Home Medications Medication Instructions Recorded Confirmed Type carvediloL [Coreg] 25 mg PO BID 06/27/20 07/01/23 History Pantoprazole [Protonix] 40 mg PO DAILY 10/08/20 07/01/23 History Calcium Acetate [PhosLo] 1,334 mg PO TID-W/MEALS PRN 03/01/21 07/01/23 History Sevelamer [Renvela] 3,200 mg PO BID-W/MEALS 09/05/21 07/01/23 History Insulin Glargine,Hum.rec.anlog 40 unit SQ DAILY 10/28/21 07/01/23 History [Basaglar Kwikpen U-100] Insulin Aspart [NovoLOG Flexpen] 10 units SQ AC-TID MDD 50 UNITS 07/13/22 07/01/23 History Insulin Aspart [NovoLOG Flexpen] See Protocol SQ AC-TID PRN MDD 50 09/30/22 07/01/23 History UNITS prednisoLONE ACETATE 1% OPHTH 1 drop RIGHT EYE DAILY 09/30/22 07/01/23 History [Pred Forte 1%] Famotidine [Pepcid] 20 mg PO DAILY 07/01/23 07/01/23 History Lidocaine-Prilocaine Cream [Emla 1 applic TOPICAL DAILY PRN 07/01/23 07/01/23 History Cream 2.5%/2.5%] Sevelamer [Renvela] 3,200 mg PO TID-W/MEALS PRN 07/01/23 07/01/23 History Vit B Comp No.3/Folic/C/Biotin 1 tab PO DAILY 07/01/23 07/01/23 History [Cassie-Lori Rx Tablet] diphenhydrAMINE [Benadryl] 25 - 50 mg PO QID PRN 07/01/23 07/01/23 History Allergies Allergy/AdvReac Type Severity Reaction Status Date / Time peanut Allergy Anaphylaxis Verified 07/01/23 12:03 Physical Exam Vitals: Vital Signs Temp Pulse Resp BP Pulse Ox 07/01/23 13:31 97.6 F 84 20 144/83 99 07/01/23 08:54 98.5 F 78 18 162/80 100 Intake and Output 07/01/23 07/01/23 07/01/23 06:59 14:59 22:59 Other: Weight 150 kg Results CBC & Chem 7: 07/01/23 09:34 07/01/23 09:34 Labs: Abnormal Lab Results - Last 24 Hours (Table) 07/01/23 07/01/23 07/01/23 Range/Units 09:34 09:34 09:34 Plt Count 136 L (150-450) k/uL APTT 45.5 H (22.0-30.0) sec Carbon Dioxide 31 H (22-30) mmol/L BUN 46 H (9-20) mg/dL Creatinine 7.32 H* (0.66-1.25) mg/dL Glucose 135 H (74-99) mg/dL Assessment and Plan Assessment: Assessment and plan * Chest pain rule out acute coronary syndrome * Acute and chronic back pain * End-stage renal disease on hemodialysis * History of pulmonary embolism * Hypertension * Fibromyalgia * Diabetes mellitus type 2 * Morbid obesity * In regards to chest pain continue to monitor troponin, continue medical management stress test ordered by cardiology * Cardiology consulted, stress disordered * In regards to diabetes mellitus Accu-Cheks before meals at bedtime continue patient on Lantus and mealtime insulin * In regards to history of hypertension continue Coreg however will hold overnight for stress test * Continue pain control for fibromyalgia Tylenol and [place] as needed
[2023-07-01 16:43] LABS: Glucose,Whole Blood 95 mg/dL (70-110)
[2023-07-01] MEDS: prednisoLONE ACETATE 1% OPHTH DROPS 5 ML BTL RIGHT EYE SCH (17:35)
[2023-07-01] MEDS: INSULIN ASPART (NovoLOG) 100 UNIT/ML VIAL SQ SCH ×3 (17:41→21:49)
[2023-07-01] MEDS: carvediloL 12.5 MG TAB PO SCH (17:41)
[2023-07-01 21:38] LABS: Glucose,Whole Blood 196 mg/dL (70-110)
[2023-07-02 02:58] VITALS: RESP 16
[2023-07-02] MEDS ORDERED: DOBUTamine DRIP for NUC MED 500 MG in DEXTROSE/WATER 1 250ML.BAG IV PRN (06:00)
[2023-07-02] MEDS ORDERED: INSULIN DETEMIR (LEVEMIR) 100 UNIT/ML SYR SQ SCH (07:00)
[2023-07-02] MEDS ORDERED: PANTOPRAZOLE 40 MG TABLET PO SCH (07:30)
[2023-07-02] MEDS ORDERED: ASPIRIN 81 MG PO SCH ×2 (09:00)
[2023-07-02] MEDS ORDERED: ASPIRIN 325 MG TAB PO SCH (09:00)
[2023-07-02 09:03] LABS: African American GFR (CKD) 8 (>60 ml/min/1.73 sqM); Anion Gap 7 mmol/L; Blood Urea Nitrogen 49 mg/dL (9-20); Calcium 8.6 mg/dL (8.4-10.2); Carbon Dioxide 29 mmol/L (22-30); Chloride 100 mmol/L (98-107); Glucose 161 mg/dL (74-99); Non-African American GFR(CKD) 7 (>60 ml/min/1.73 sqM); Sodium 136 mmol/L (137-145)
--- NOTE | 2023-07-02 10:34 | P.PN ---
Subjective HISTORY OF PRESENT ILLNESS: This is a 52-year-old male with a past medical history significant for diabetes, hypertension, fibromyalgia, pulmonary embolism, sleep apnea, chronic kidney disease on hemodialysis. Patient follows in the office with Dr. Quijano. We have been asked to see the patient in consultation for chest pain. Patient examined at the bedside. Patient states he was at hemodialysis today when he developed c hest pain. He states the pain was in the middle of his chest. He also reports significant back pain throughout his entire spine. He states that the pain started this morning. He states whenever he takes a deep breath the pain in his back is worsened. He states he was unable to finish his dialysis session today secondary to the pain and came to the ER for further evaluation. The patient also reports a lot of anxiety and states he is having a hard time controlling his anxiousness. The patient reports nausea which is chronic but no vomiting. The patient states he is going to [facility] to be evaluated for a kidney transplant. * EKG reveals sinus mechanism with ST elevation noted in V1V3, noted on previous EKGs. * Chest xray mild prominence of the interstitium may be related to reduced inspiration rather than interstitial pneumonitis * Laboratory data: WBC 5.4. Hemoglobin 13.3. Platelet count 136. Sodium 138. Potassium 4.4. BUN 46. Creatinine 7.32. Troponin negative 2. ProBNP 366. * Current home cardiac medications include carvedilol 25 mg twice a day * Most recent echocardiogram obtained in September 2020 revealed ejection fraction 50-55%, mild MR, mild TR * Patient underwent dobutamine stress test in September 2020 which was negative for ischemia 07/02/2023 Patient examined this morning at the bedside. Patient denies any further episodes of chest pain or pressure. He currently denies shortness of breath. He also reports that his back pain is improved today compared to yesterday. Vital signs are stable. PHYSICAL EXAM: VITAL SIGNS: Reviewed. GENERAL: Well-developed in no acute distress. HEENT: Head is normocephalic. Pupils are equal, round. Sclerae anicteric. Mucous membranes of the mouth are moist. Neck supple. No JVD or thyromegaly LUNGS: Respirations even and unlabored. Lungs essentially clear to auscultation bilaterally. HEART: Regular rate and rhythm. S1 and S2 heard. ABDOMEN: Soft. Nondistended. Nontender. EXTREMITIES: Normal range of motion. No clubbing or cyanosis. Peripheral pulses intact. No lower extremity edema NEUROLOGIC: Awake and alert. Oriented x 3. ASSESSMENT: Chest pain, atypical, troponin negative 2 Back pain, acute on chronic End-stage renal disease on hemodialysis Hypertension Fibromyalgia History of pulmonary embolism Obstructive sleep apnea Diabetes Morbid obesity: BMI 42.5 PLAN: 2-D echo has been ordered. Await results Carvedilol remains on hold secondary to stress testing today. Resume post stress test Patient to undergo dobutamine stress test today If dobutamine stress test is negative and 2-D echo does not reveal any significant abnormalities, the patient may be discharged home today from a cardiac standpoint Nurse practitioner note has been reviewed by physician. Signing provider agrees with the documented findings, assessment, and plan of care. Objective - Vital Signs Vital signs: Vital Signs Temp 98.1 F 07/02/23 07:00 Pulse 73 07/02/23 08:00 Resp 16 07/02/23 08:00 BP 125/79 07/02/23 07:00 Pulse Ox 97 07/02/23 07:00 FiO2 Intake & Output 07/01/23 07/02/23 07/02/23 18:59 06:59 18:59 Weight 150 kg 150 kg Other: Voiding Method Toilet Toilet # Voids 2 - Labs CBC & Chem 7: 07/01/23 09:34 07/02/23 08:20 Labs: Abnormal Lab Results - Last 24 Hours (Table) 07/01/23 07/01/23 07/02/23 Range/Units 09:34 21:37 08:20 Sodium 136 L (137-145) mmol/L Carbon Dioxide 31 H (22-30) mmol/L BUN 46 H 49 H (9-20) mg/dL Creatinine 7.32 H* 8.14 H* (0.66-1.25) mg/dL Glucose 135 H 161 H (74-99) mg/dL POC Glucose (mg/dL) 196 H (70-110) mg/dL
[2023-07-02] MEDS ORDERED: DOBUTamine DRIP for NUC MED 500 MG/250 ML BAG IV ONE (11:30)
--- NOTE | 2023-07-02 12:08 | P.PN ---
Subjective Patient is seen for follow-up for end-stage renal disease. Scheduled for stress echo today. No complaints of chest pain. Objective - Vital Signs Vital signs: Vital Signs Temp 98.1 F 07/02/23 07:00 Pulse 73 07/02/23 08:00 Resp 16 07/02/23 08:00 BP 125/79 07/02/23 07:00 Pulse Ox 97 07/02/23 07:00 FiO2 Intake & Output 07/01/23 07/02/23 07/02/23 18:59 06:59 18:59 Weight 150 kg 150 kg Other: Voiding Method Toilet Toilet # Voids 2 - Exam Patient is awake, comfortable, no acute distress Examination of the heart S1 and S2 Examination of the lungs bilateral breath sounds are heard Abdomen is soft nontender Examination of lower extremities shows edema 1+ bilaterally. Left arm AV fistula with needles still in [employer] exam grossly intact - Labs CBC & Chem 7: 07/01/23 09:34 07/02/23 08:20 Labs: Abnormal Lab Results - Last 24 Hours (Table) 07/01/23 07/02/23 Range/Units 21:37 08:20 Sodium 136 L (137-145) mmol/L BUN 49 H (9-20) mg/dL Creatinine 8.14 H* (0.66-1.25) mg/dL Glucose 161 H (74-99) mg/dL POC Glucose (mg/dL) 196 H (70-110) mg/dL Assessment and Plan Assessment: 1. End-stage renal disease on hemodialysis on a Wednesday schedule via left arm AV fistula 2. Chest pain atypical with negative troponins being followed by cardiology 3. CK D mineral bone disorder 4. Type 2 diabetes 5. Gastroesophageal reflux disease maintained on proton ex Plan: Hemodialysis in a.m. Continue with phosphate binders Patient can be discharged from nephrology standpoint if cleared by cardiology.
[2023-07-02 12:13] LABS: Glucose,Whole Blood 149 mg/dL (70-110)
--- NOTE | 2023-07-02 12:29 | CA ---
Transthoracic Echo Report Name: Gomez Louis Age: 52 Gender: M : 1970 Exam Date: 07/02/2023 10:41 Exam Location: [place] [facility] Ht (in): 74 Wt (lb): 330 Ordering Physician: Miranda Rebolledo Attending/Referring Phys: [id number], Kesha Coating Mixer Supervisor Raysa Santillan [facility] Procedure CPT: Indications: LV function, CP Cardiac Hx: Technical Quality: Technically difficult study Contrast 1: Lumason Total Dose (mL): 5 Contrast 2: Total Dose (mL): MEASUREMENTS (Male / Female) Normal Values 2D ECHO LV Diastolic Diameter PLAX 5.0 cm 4.2 - 5.9 / 3.9 - 5.3 cm LV Systolic Diameter PLAX 3.6 cm IVS Diastolic Thickness 1.3 cm 0.6 - 1.0 / 0.6 - 0.9 cm LVPW Diastolic Thickness 1.1 cm 0.6 - 1.0 / 0.6 - 0.9 cm LV Relative Wall Thickness 0.5 Aortic Root Diameter 3.7 cm Ascending Aorta Diameter 3.5 cm M-MODE Aortic Root Diameter MM 3.9 cm LA Systolic Diameter MM 2.7 cm LA Ao Ratio MM 0.7 AV Cusp Separation MM 2.3 cm DOPPLER AV Peak Velocity 103.4 cm/s AV Peak Gradient 4.3 mmHg AV Mean Velocity 76.2 cm/s AV Mean Gradient 2.6 mmHg AV Velocity Time Integral 22.9 cm LVOT Peak Velocity 112.9 cm/s LVOT Peak Gradient 5.1 mmHg LVOT Velocity Time Integral 26.0 cm Mitral E Point Velocity 81.4 cm/s Mitral A Point Velocity 68.4 cm/s Mitral E to A Ratio 1.2 MV Deceleration Time 206.7 ms LV E' Lateral Velocity 8.1 cm/s Mitral E to LV E' Lateral Ratio 10.1 LV E' Septal Velocity 7.7 cm/s Mitral E to LV E' Septal Ratio 10.5 Right Atrial Pressure 8.0 mmHg FINDINGS Left Ventricle Mildly increased left ventricular wall thickness. Left ventricular cavity size normal. No obvious regional wall motion abnormalities. Left ventricular ejection fraction is estimated at 55-60%. Right Ventricle Normal right ventricular size and function. Right Atrium Normal right atrial size. Left Atrium Normal left atrial size. Mitral Valve Structurally normal mitral valve. Trace mitral regurgitation. Aortic Valve Aortic valve not well visualized. No aortic valve stenosis or regurgitation. Tricuspid Valve Structurally normal tricuspid valve. No tricuspid regurgitation. Pulmonic Valve . No pulmonic regurgitation.pulmonic valve not well visualized. Pericardium No pericardial effusion. Aorta Mild aortic dilatation at the level of the sinuses of valsalva (root). Proximal ascending aorta (tube) normal. CONCLUSIONS Technically difficult study. 1. Normal left ventricle size and systolic function 2. Limited Doppler study with no significant abnormalities Previewed by: Dr. Elke Quijano MD (Electronically Signed) Final Date: 02 July 2023 12:28
--- NOTE | 2023-07-02 13:00 | CA ---
Dobutamine Stress Echocardiogram Report Gomez Louis Age: 52 Gender: M : 1970 Exam Date: 07/02/2023 11:39 Exam Location: [place] [facility] Ordering Physician: Miranda Rebolledo Referring Physician: MIRANDA REBOLLEDO,, Director Of Solutions Architecture: Aleyda Paulson RDCS Technologist: Ht (in): 74 Wt (lb): 330 Procedure CPT: Indication: CP ICD-9 Codes: Rhythm: Patient History: Atypical angina, Diabetes mellitus, Hypertension Cardiac Medications: Medications in past 24 hours: Contrast: Total Dose (mL): Stress Results Protocol: Peak Dose (???g/kg/min): Duration (min:sec): Atropine:(mg) Target HR: 144 Double Product: [id number] Resting HR: 74 Resting BP: 146 / 81 Peak HR: 144 Peak BP: 239 / 102 Max Predicted HR: 169 85 % Max Predicted HR Stress Summary: BP Response: Reason for Termination: Target HR,INFUSION COMPLETE Cardiac Symptoms: NO SYMPTOMS ECG Analysis Resting EKG: Normal sinus rhythm, normal ECG Stress EKG: No abnormal ST/T wave changes with exercise Arrhythmia: None Echo Analysis Base Echo Analysis: Normal resting echocardiogram. Normal Dobutamine stress echocardiogram. Low Echo Anaylsis: Normal wall motion with increased thickness Peak Echo Analysis: Normal wall motion with no segmental wall motion abnormalities Recovery Echo: Normal echocardiogram MEASUREMENTS (Male/Female) Normal Values CONCLUSIONS 1. Normal left a graft response to dobutamine infusion 2.Normal Dobutamine stress echocardiogram. Dr. Elke Quijano MD (Electronically Signed) Final Date: 02 July 2023 12:59
[2023-07-02] MEDS: INSULIN ASPART (NovoLOG) 100 UNIT/ML VIAL SQ SCH ×4 (13:31→13:39)
[2023-07-02] MEDS: carvediloL 12.5 MG TAB PO SCH (13:33)
[2023-07-02] MEDS: FAMOTIDINE 20 MG TAB PO SCH (13:33)
[2023-07-02] MEDS: prednisoLONE ACETATE 1% OPHTH DROPS 5 ML BTL RIGHT EYE SCH (13:35)
--- NOTE | 2023-07-02 14:43 | P.DS ---
Providers Date of admission: 07/01/23 11:30 Expected date of discharge: 07/02/23 Attending physician: Manolo Mondragon MD Consults: 07/01/23 11:29 Consult Physician Routine Consulting Provider: [facility] Consult Reason/Comments: Chest Pain Do you want consulting provider notified?: Yes 07/01/23 11:33 Consult Physician Urgent Consulting Provider: Michelle Medeiros Consult Reason/Comments: Renal failure Do you want consulting provider notified?: Yes Primary care physician: [facility] Course: * 52-year-old gentleman with multiple comorbidities including history of sleep apnea, end-stage renal disease on hemodialysis, hypertension, diabetes mellitus, obesity, fibromyalgia presented to the emergency department while having chest pain during dialysis. Patient was in the dialysis session when he started to have midsternal chest pain radiated to his back. Patient states the pain is worse when he takes a deep breath. * He was unable to finish his session of hemodialysis and was sent into the emergency for further evaluation * Workup initiated in ER included a chest x-ray which showed bilateral interstitial prominence likely secondary to fluid overload. * EKG showed ST segment changes in V1 to V3 similar to previous EKGs. * Blood was obtained showed creatinine of 7.32 potassium of 4.4 sodium of 138 * serial troponins were obtained which were negative * Patient has a dobutamine stress echo completed during the hospital stay which was negative * he was seen by nephrology during the hospital stay and had hemodialysis completed GENERAL: The patient is alert and oriented x3, not in any acute distress. Well developed, well nourished. HEENT: Pupils are round and equally reacting to light. EOMI. No scleral icterus. No conjunctival pallor. Normocephalic, atraumatic. No pharyngeal erythema. No thyromegaly. CARDIOVASCULAR: S1 and S2 present. No murmurs, rubs, or gallops. PULMONARY: Chest is clear to auscultation, no wheezing or crackles. ABDOMEN: Soft, nontender, nondistended, normoactive bowel sounds. No palpable organomegaly. MUSCULOSKELETAL: No joint swelling or deformity. EXTREMITIES: No cyanosis, clubbing, or pedal edema. NEUROLOGICAL: Gross neurological examination did not reveal any focal deficits. SKIN: No rashes. Assessment and plan * Chest pain rule out acute coronary syndrome * Acute and chronic back pain * End-stage renal disease on hemodialysis * History of pulmonary embolism * Hypertension * Fibromyalgia * Diabetes mellitus type 2 * Morbid obesity * In regards to chest pain , serial troponins obtained which are negative , dobutamine stress echo negative, continue aspirin * Cardiology consulted, cleared patient for discharge * In regards to diabetes mellitus continue home regimen upon discharge * In regards to history of hypertension continue Coreg * Continue pain control for fibromyalgia, continue home regimen Patient Condition at Discharge: Fair Plan - Discharge Summary Discharge Rx Participant: No New Discharge Prescriptions: New Aspirin 81 mg PO DAILY #30 tab Continue carvediloL [Coreg] 25 mg PO BID Pantoprazole [Protonix] 40 mg PO DAILY Calcium Acetate [PhosLo] 1,334 mg PO TID-W/MEALS PRN PRN Reason: IF HE EATS A MEAL Sevelamer [Renvela] 3,200 mg PO BID-W/MEALS Insulin Glargine,Hum.rec.anlog [Basaglar Kwikpen U-100] 40 unit SQ DAILY prednisoLONE ACETATE 1% OPHTH [Pred Forte 1%] 1 drop RIGHT EYE DAILY Insulin Aspart [NovoLOG Flexpen] See Protocol SQ AC-TID PRN MDD 50 UNITS PRN Reason: HIGH BLOOD SUGAR diphenhydrAMINE [Benadryl] 25 - 50 mg PO QID PRN PRN Reason: Allergy Symptoms/ITCHING Lidocaine-Prilocaine Cream [Emla Cream 2.5%/2.5%] 1 applic TOPICAL DAILY PRN PRN Reason: PORT ACCESS Famotidine [Pepcid] 20 mg PO DAILY Sevelamer [Renvela] 3,200 mg PO TID-W/MEALS PRN PRN Reason: IF HE EATS A MEAL Insulin Aspart [NovoLOG Flexpen] 10 units SQ AC-TID MDD 50 UNITS Vit B Comp No.3/Folic/C/Biotin [Cassie-Lori Rx Tablet] 1 tab PO DAILY Discharge Medication List carvediloL [Coreg] 25 mg PO BID 06/27/20 [History] Pantoprazole [Protonix] 40 mg PO DAILY 10/08/20 [History] Calcium Acetate [PhosLo] 1,334 mg PO TID-W/MEALS PRN 03/01/21 [History] Sevelamer [Renvela] 3,200 mg PO BID-W/MEALS 09/05/21 [History] Insulin Glargine,Hum.rec.anlog [Basaglar Kwikpen U-100] 40 unit SQ DAILY 10/28/21 [History] Insulin Aspart [NovoLOG Flexpen] 10 units SQ AC-TID MDD 50 UNITS 07/13/22 [History] Insulin Aspart [NovoLOG Flexpen] See Protocol SQ AC-TID PRN MDD 50 UNITS 09/30/22 [History] prednisoLONE ACETATE 1% OPHTH [Pred Forte 1%] 1 drop RIGHT EYE DAILY 09/30/22 [History] Famotidine [Pepcid] 20 mg PO DAILY 07/01/23 [History] Lidocaine-Prilocaine Cream [Emla Cream 2.5%/2.5%] 1 applic TOPICAL DAILY PRN 07/01/23 [History] Sevelamer [Renvela] 3,200 mg PO TID-W/MEALS PRN 07/01/23 [History] Vit B Comp No.3/Folic/C/Biotin [Cassie-Lori Rx Tablet] 1 tab PO DAILY 07/01/23 [History] diphenhydrAMINE [Benadryl] 25 - 50 mg PO QID PRN 07/01/23 [History] Aspirin 81 mg PO DAILY #30 tab 07/02/23 [Rx] Follow up Appointment(s)/Referral(s): Sharri Mckeon MD [Primary Care Provider] - 1-2 days Discharge Disposition: HOME SELF-CARE
[2023-07-02 15:02] VITALS: BP 130/82; PULSE 80; TEMP 98.5
[2023-07-02 18:49] LABS: Chol/HDL Ratio 2.06 Ratio; LDL Cholesterol,Calculated 35.1 mg/dL (0.0-131.0); VLDL Calculation 16.86 mg/dL (5.00-40.00)
== END 2023-07-02 15:55 | disposition home or self-care (01) ==
LOC: EC 08:52 → 6NMEDSUR 11:30
PROVIDERS: ADMIT Internal Medicine; ATTEND Internal Medicine
DX: R07.89 Other chest pain (principal); I08.1 Rheumatic disorders of both mitral and tricuspid valves; M25.512 Pain in left shoulder; M25.511 Pain in right shoulder; M79.7 Fibromyalgia; M21.372 Foot drop, left foot; I12.0 Hypertensive chronic kidney disease with stage 5 chronic kidney disease or end stage renal disease; E11.22 Type 2 diabetes mellitus with diabetic chronic kidney disease; N18.6 End stage renal disease; D63.1 Anemia in chronic kidney disease; Z99.2 Dependence on renal dialysis; F41.9 Anxiety disorder, unspecified; E11.42 Type 2 diabetes mellitus with diabetic polyneuropathy; M51.26 Other intervertebral disc displacement, lumbar region; Z86.711 Personal history of pulmonary embolism; E66.01 Morbid (severe) obesity due to excess calories; Z68.41 Body mass index [BMI] 40.0-44.9, adult; G47.33 Obstructive sleep apnea (adult) (pediatric); Z87.01 Personal history of pneumonia (recurrent); Z86.14 Personal history of Methicillin resistant Staphylococcus aureus infection; Z98.890 Other specified postprocedural states; Z82.49 Family history of ischemic heart disease and other diseases of the circulatory system; Z80.0 Family history of malignant neoplasm of digestive organs; Z80.52 Family history of malignant neoplasm of bladder; Z79.4 Long term (current) use of insulin; Z79.899 Other long term (current) drug therapy; Z91.010 Allergy to peanuts; K21.9 Gastro-esophageal reflux disease without esophagitis; G56.03 Carpal tunnel syndrome, bilateral upper limbs; Z86.69 Personal history of other diseases of the nervous system and sense organs
CPT/HCPCS: 96374; 96375; 99285; 36415; 93005; 93351; 83880; 80061; 80053; 80048; 83735; 84484; 85025; 85610; 85730; 71046; G0378 ×2; C8929; J2060; J1250; J1170; Q9950 ×2; 93306

== ENCOUNTER 2023-08-02 05:38 | Emergency (ER) | payer MEDICARE, OTHER ==
[2023-08-02] MEDS: KETOROLAC 15 MG/ML 1 ML VIAL IM STA ×2 (06:04→06:08)
[2023-08-02] MEDS ORDERED: KETOROLAC 15 MG/ML 1 ML VIAL IVP STA (06:05)
[2023-08-02] MEDS ORDERED: SODIUM CHLORIDE 0.9% 1,000 ML IV STA (06:05)
[2023-08-02] MEDS ORDERED: ONDANSETRON 4 MG/2 ML VIAL IVP STA (06:16)
--- NOTE | 2023-08-02 06:18 | ED ---
URI HPI - General Chief Complaint: Upper Respiratory Infection Stated Complaint: Body aches, dizziness, cough Time Seen by Provider: 08/02/23 05:56 Source: patient, RN notes reviewed Mode of arrival: wheelchair Limitations: no limitations - History of Present Illness Initial Comments: Patient is a pleasant 52-year-old -Citizen Of [place] male presenting to the emergency room with complaints of cough, congestion, body aches and chills he is unsure if he has had fevers or not the but he has a low-grade fever on mentation of 99.8. He reports that symptoms began towards the end of his dialysis treatment on Wednesday which was completed in [place] where he was vacationing for 1 week. He denies any known exposure to COVID or other respiratory illnesses however as stated above he does attend dialysis regularly. He reports difficulty taking in a deep breath, generalized queasy feeling and occasional dizziness with his generalized malaise but denies any typical chest pain, abdominal pain, vomiting, or headache. His past medical history as listed below was reviewed. - Related Data Home Medications Medication Instructions Recorded Confirmed carvediloL [Coreg] 25 mg PO BID 06/27/20 07/01/23 Pantoprazole [Protonix] 40 mg PO DAILY 10/08/20 07/01/23 Calcium Acetate [PhosLo] 1,334 mg PO TID-W/MEALS PRN 03/01/21 07/01/23 Sevelamer [Renvela] 3,200 mg PO BID-W/MEALS 09/05/21 07/01/23 Insulin Glargine,Hum.rec.anlog 40 unit SQ DAILY 10/28/21 07/01/23 [Basaglar Kwikpen U-100] Insulin Aspart [NovoLOG Flexpen] 10 units SQ AC-TID MDD 50 UNITS 07/13/22 07/01/23 Insulin Aspart [NovoLOG Flexpen] See Protocol SQ AC-TID PRN MDD 50 09/30/22 07/01/23 UNITS prednisoLONE ACETATE 1% OPHTH 1 drop RIGHT EYE DAILY 09/30/22 07/01/23 [Pred Forte 1%] Famotidine [Pepcid] 20 mg PO DAILY 07/01/23 07/01/23 Lidocaine-Prilocaine Cream [Emla 1 applic TOPICAL DAILY PRN 07/01/23 07/01/23 Cream 2.5%/2.5%] Sevelamer [Renvela] 3,200 mg PO TID-W/MEALS PRN 07/01/23 07/01/23 Vit B Comp No.3/Folic/C/Biotin 1 tab PO DAILY 07/01/23 07/01/23 [Cassie-Lori Rx Tablet] diphenhydrAMINE [Benadryl] 25 - 50 mg PO QID PRN 07/01/23 07/01/23 Previous Rx's Medication Instructions Recorded Aspirin 81 mg PO DAILY #30 tab 07/02/23 Allergies Allergy/AdvReac Type Severity Reaction Status Date / Time peanut Allergy Anaphylaxis Verified 08/02/23 05:44 Review of Systems ROS Statement: Those systems with pertinent positive or pertinent negative responses have been documented in the HPI. ROS Other: All systems not noted in ROS Statement are negative. Past Medical History Past Medical History: Diabetes Mellitus, Dialysis, Eye Disorder, Fibromyalgia, Hypertension, Pneumonia, Pulmonary Embolus (PE), Renal Disease, Sleep Apnea/CPAP/BIPAP Additional Past Medical History / Comment(s): IDDM type II, neuropathy bilateral feet, chronic renal failure, anemia, chronic lower back and shoulders pain, herniated lumbar disk, glaucoma R eye, carpal tunnel syndrome bilaterally, bronchitis, PAULA with CPAP. Left drop foot,fistula left upper arm,hemodialysis , History of Any Multi-Drug Resistant Organisms: MRSA Date of last positivie culture/infection: 11/21/12 MDRO Source:: lower back Past Surgical History: Orthopedic Surgery Additional Past Surgical History / Comment(s): Incision and drainage back and R groin r/t abscesses removed, bilateral eye surgery for retinal repair, R eye surgery for glaucoma-. fistula-left upper arm,cystoscopy with biopsy Past Anesthesia/Blood Transfusion Reactions: Postoperative Nausea & Vomiting (PONV) Additional Past Anesthesia/Blood Transfusion Reaction / Comment(s): pt stated has recieved blood transfusions-no known reaction. Past Psychological History: Anxiety Smoking Status: Never smoker Past Alcohol Use History: None Reported Past Drug Use History: None Reported - Past Family History Brother(s) Family Medical History: Cancer, Deep Vein Thrombosis (DVT) Additional Family Medical History / Comment(s): colon Father Family Medical History: Cancer Additional Family Medical History / Comment(s): Bladder cancer in father. Mother Additional Family Medical History / Comment(s): Mother of brain aneurysm General Exam Limitations: no limitations General appearance: alert, in no apparent distress Head exam: Present: atraumatic, normocephalic, normal inspection Eye exam: Present: normal appearance, PERRL, EOMI. Absent: scleral icterus, conjunctival injection, periorbital swelling ENT exam: Present: normal exam, mucous membranes moist Neck exam: Present: normal inspection, full ROM Respiratory exam: Present: normal lung sounds bilaterally. Absent: respiratory distress, wheezes, rales, rhonchi, stridor Cardiovascular Exam: Present: regular rate, normal rhythm, normal heart sounds, systolic murmur. Absent: diastolic murmur, rubs, gallop, clicks GI/Abdominal exam: Present: soft (Years), normal bowel sounds. Absent: distended, tenderness, guarding, rebound, rigid Extremities exam: Present: normal inspection, pedal edema (trace). Absent: joint swelling Back exam: Present: normal inspection Neurological exam: Present: alert, oriented X3, CN II-XII intact Psychiatric exam: Present: normal affect, normal mood Skin exam: Present: warm, dry, intact, normal color. Absent: rash Course Vital Signs 08/02/23 08/02/23 08/02/23 05:44 06:00 06:54 Temperature 99.8 F H Pulse Rate 98 96 87 Respiratory 18 20 20 Rate Blood Pressure 156/93 131/80 128/92 O2 Sat by Pulse 98 98 99 Oximetry Medical Decision Making - Medical Decision Making Was pt. sent in by a medical professional or institution (, PA, CARDROOM SUPERVISOR, urgent care, hospital, or fci...) When possible be specific @ -No Did you speak to anyone other than the patient for history (EMS, parent, family, police, friend...)? What history was obtained from this source @ -No Did you review nursing and triage notes (agree or disagree)? Why? @ -I reviewed and agree with nursing and triage notes Were old charts reviewed (outside hosp., previous admission, EMS record, old EKG, old radiological studies, urgent care reports/EKG's, fci records)? Report findings @ -No old charts were reviewed Differential Diagnosis (chest pain, altered mental status, abdominal pain women, abdominal pain men, vaginal bleeding, weakness, fever, dyspnea, syncope, headache, dizziness, GI bleed, back pain, seizure, CVA, palpatations, mental health, musculoskeletal)? @ -Differential Upper respiratory symptoms: Pneumonia, viral URI including but not limited to Covid, bronchitis, otitis, sinusitis, streptococcal pharyngitis, mononucleosis, peritonsillar Abscess, retropharyngeal Abscess, epiglottitis, this is not meant to be an all-inclusive list. EKG interpreted by me (3pts min.). @ -None done X-rays interpreted by me (1pt min.). @ -None done CT interpreted by me (1pt min.). @ -None done U/S interpreted by me (1pt. min.). @ -None done What testing was considered but not performed or refused? (CT, X-rays, U/S, labs)? Why? @ -None What meds were considered but not given or refused? Why? @ -None Did you discuss the management of the patient with other professionals (professionals i.e. , PA, CARDROOM SUPERVISOR, lab, RT, psych nurse, adoption social worker, learning strategist, teacher, drug abuse resistance education officer, returned case inspector)? Give summary @ -No Was smoking cessation discussed for >3mins.? @ -No Was critical care preformed (if so, how long)? @ -No Were there social determinants of health that impacted care today? How? (Homeles sness, low income, unemployed, alcoholism, drug addiction, transportation, low edu. Level, literacy, decrease access to med. care, prison, rehab)? @ -No Was there de-escalation of care discussed even if they declined (Discuss DNR or withdrawal of care, Hospice)? DNR status @ -No What co-morbidities impacted this encounter? (DM, HTN, Smoking, COPD, CAD, Cancer, CVA, ARF, Chemo, Hep., AIDS, mental health diagnosis, sleep apnea, morbid obesity)? @ -None Was patient admitted / discharged? Hospital course, mention meds given and route, prescriptions, significant lab abnormalities, going to OR and other pertinent info. @ -52-year-old -Citizen Of [place] male presenting to the emergency room with complaints of cough, congestion, body aches and chills he is unsure if he has had fevers or not the but he has a low-grade fever on mentation of 99.8. Will obtain viral solving for COVID, influenza and RSV, no indication for laboratory studies were chest x-ray in the setting of normal vital signs and normal exam. Will give Give single dose of Toradol, 1 L IV fluid bolus cautiously and Zofran for queasy feeling. Will monitor closely. Vital signs continue to remain stable. Viral solving resulted in a positive Covid test, negative for influenza or RSV. No indication for further diagnostic imaging, laboratory studies or medication administration at this time. Education regarding Covid restrictions and symptomatic management discussed patient. Advised to continue dialysis treatment with last usage at treatment. Questions and concerns answered. Return parameters emergency room discussed. Will discharge home in stable condition with symptomatic management of COVID advising follow up with primary care provider after quarantine complete Undiagnosed new problem with uncertain prognosis? @ -No Drug Therapy requiring intensive monitoring for toxicity (Heparin, Nitro, Insulin, Cardizem)? @ -No Were any procedures done? @ -No Diagnosis/symptom? @ -Covid Acute, or Chronic, or Acute on Chronic? @ -Acute Uncomplicated (without systemic symptoms) or Complicated (systemic symptoms)? @ -Uncomplicated Side effects of treatment? @ -No Exacerbation, Progression, or Severe Exacerbation? @ -No Poses a threat to life or bodily function? How? (Chest pain, [place], [place], pneumonia, PE, COPD, DKA, ARF, appy, cholecystitis, CVA, Diverticulitis, Homicidal, Suicidal, threat to staff... and all critical care pts) @ -No Case discussed with Dr. Kimble - Lab Data Lab Results 08/02/23 Range/Units 06:14 Influenza Type A (PCR) Not Detected (Not Detectd) Influenza Type B (PCR) Not Detected (Not Detectd) RSV (PCR) Not Detected (Not Detectd) SARS-CoV-2 (PCR) Detected A (Not Detectd) Disposition Clinical Impression: COVID-19 Disposition: HOME SELF-CARE Condition: Stable Instructions (If sedation given, give patient instructions): Coronavirus Disease 2019 (COVID-19), Upper Respiratory Infection (ED) Additional Instructions: Please quarantine for 5 days after testing positive and restart quarantine if symptoms worsen. Please utilize Tylenol as needed for fevers and pain. Taking vitamin C, Zinc, vitamin D 50 mcg, and melatonin may help symptom recovery. Is patient prescribed a controlled substance at d/c from ED?: No Referrals: Mikey Ann MD [Primary Care Provider] - 1-2 days Time of Disposition: 07:11
[2023-08-02 07:26] VITALS: BP 150/83; PULSE 78; RESP 18; TEMP 99.5
== END 2023-08-02 07:26 | disposition home or self-care (01) ==
LOC: EC 05:38
DX: U07.1 COVID-19 (principal); E11.40 Type 2 diabetes mellitus with diabetic neuropathy, unspecified; E11.22 Type 2 diabetes mellitus with diabetic chronic kidney disease; I12.9 Hypertensive chronic kidney disease with stage 1 through stage 4 chronic kidney disease, or unspecified chronic kidney disease; N18.9 Chronic kidney disease, unspecified; Z79.4 Long term (current) use of insulin; Z79.899 Other long term (current) drug therapy; Z99.2 Dependence on renal dialysis; Z91.010 Allergy to peanuts
CPT/HCPCS: 87636; 99284; 96374; 96361; J1885

== ENCOUNTER → 2023-12-15 | Outpatient (CLI) | payer MEDICARE, OTHER ==
--- NOTE | 2023-12-15 08:35 | XR ---
EXAMINATION TYPE: XR chest 2V DATE OF EXAM: 12/15/2023 8:27 AM CLINICAL INDICATION:Male, 53 years old with history of Z01.818 PRE OP; [facility] COMPARISON: Chest radiographs from 07/01/2023. TECHNIQUE: XR chest 2V Frontal and lateral views of the chest. FINDINGS: Lungs/Pleura: There is no evidence of pleural effusion, focal consolidation, or pneumothorax. Pulmonary vascularity: Unremarkable. Heart/mediastinum: Cardiomediastinal silhouette is unremarkable. Musculoskeletal: No acute osseous pathology. Other findings: None IMPRESSION: No acute cardiopulmonary disease/process.
[2023-12-15 15:27] LABS: Basophils # (A) 0.04 X 10*3/uL (0.00-0.10); Basophils % (A) 0.7 %; Eosinophils # (A) 0.31 X 10*3/uL (0.04-0.35); Eosinophils % (A) 5.5 %; HCT 37.8 % (39.6-50.0); HGB 12.6 g/dL (13.0-17.0); Lymphocytes # (A) 1.84 X 10*3/uL (0.90-5.00); Lymphocytes % (A) 32.5 %; MCH 29.3 pg (27.0-32.0); MCHC 33.3 g/dL (32.0-37.0); MCV 87.9 FL (80.0-97.0); Mean Platelet Volume 11.1 FL (9.5-12.2); Monocytes % (A) 5.3 %; NRBC Per 100 WBC 0 X 10*3/uL (0.00-0.01); Neutrophils # (A) 3.15 X 10*3/uL (1.80-7.70); Neutrophils % (A) 55.6 %; Platelet Count 202 X 10*3/uL (140-440); RDW 12.9 % (11.5-14.5); WBC 5.66 X 10*3/uL (4.50-10.00)
[2023-12-15 15:52] LABS: Albumin 4.1 g/dL (3.8-4.9); Albumin/Globulin Ratio 1.46 Ratio (1.60-3.17); Bilirubin, Conjugated 0.22 mg/dL (0.20-0.40); Bilirubin,Unconjugated 0.48 mg/dL (0.20-1.00); Calcium 9.1 mg/dL (8.7-10.3); Globulin 2.8 g/dL (1.6-3.3); Total Bilirubin 0.7 mg/dL (0.3-1.2); Total Protein 6.9 g/dL (6.2-8.2)
[2023-12-15 16:38] LABS: Hepatitis B Surface Antigen Nonreactive; Hepatitis C IgG Antibody Nonreactive
[2023-12-15 18:09] LABS: HSV I IgG Interp POSITIVE; HSV II IgG Interp POSITIVE; Mumps Virus IgG Ab Interp POSITIVE; Mumps Virus IgG Antibody 3.1 AI
[2023-12-16 04:55] LABS: Toxoplasma Antibody (IgG) <3.0 IU/mL (<7.2)
[2023-12-16 04:59] LABS: EBV - VCA (IgG) >750.0 U/mL (<18.0)
[2023-12-16 12:52] LABS: Hepatitis B Virus DNA Not detected (Not detected); Hepatitis B Virus DNA, Quant <10 IU/mL (<10); Log HBV IU/mL <1.00 (<1.00)
== END | disposition home or self-care (01) ==
LOC: LABWHC1 07:51
PROVIDERS: ATTEND Internal Medicine
DX: Z01.818 Encounter for other preprocedural examination (principal)
CPT/HCPCS: 36415; 71046; 80076; 82310; 82784; 83036; 83970; 84100; 84443; 85025; 86644; 86645; 86665; 86695; 86696; 86704; 86735; 86762; 86777; 86787; 86803; 86850; 86900; 86901; 87340; 87517; 87536

== ENCOUNTER → 2023-12-29 | Day surgery (SDC) | payer MEDICARE, OTHER ==
[2023-12-23 14:18] VITALS: BMI 41.3
[~2023-12-29] MED LIST changes: -DEXAMETHASONE SOD PHOSPHATE 10 MG/ML 1 ML VIAL IV ONE; -HYDROmorphone 0.5 MG/0.5 ML SYRINGE IVP PRN; -LACTATED RINGERS 1,000 ML IV SCH; +LIDOCAINE 1% INJ 10MG/ML (20 ML MDV) SQ ONE; +MIDAZOLAM 2 MG/2 ML VIAL IVP ONE; -ONDANSETRON 4 MG/2 ML VIAL IVP ONE; +SODIUM CHLORIDE 0.9% 500 ML 500 ML IV ONE; +fentaNYL (PF) 50 MCG/ML 2 ML AMP ONE
[2023-12-29 12:12] LABS: Glucose,Whole Blood 92 mg/dL (70-110)
[2023-12-29 12:23] VITALS: TEMP 98.8
[2023-12-29 12:34] LABS: African American GFR (CKD) 10 (>60 ml/min/1.73 sqM); Anion Gap 7 mmol/L; Blood Urea Nitrogen 45 mg/dL (9-20); Calcium 9.2 mg/dL (8.4-10.2); Carbon Dioxide 30 mmol/L (22-30); Chloride 103 mmol/L (98-107); Glucose 98 mg/dL (74-99); Non-African American GFR(CKD) 9 (>60 ml/min/1.73 sqM); Potassium 4.3 mmol/L (3.5-5.1); Sodium 140 mmol/L (137-145)
[2023-12-29] MEDS: fentaNYL (PF) 50 MCG/ML 2 ML AMP IVP ONE ×2 (14:29→14:44)
--- NOTE | 2023-12-29 15:25 | P.OP ---
Date of Procedure: 12/29/23 Description of Procedure: Preoperative diagnosis: Malfunctioning left upper extremity AV fistula, narrowing of the outflow Postoperative diagnosis: Same Procedure: Ultrasound-guided left venous fistula access Fistulogram Percutaneous transluminal balloon venoplasty 7 x 40 outflow and anastomosis Sedation 23 minutes with personal monitoring certified RN administration Surgeon: Farnaz Rome D.O. EBL: Less than 5 mL IV fluids: See records Urine output: Not measured Drains: None Complications: None immediately apparent Condition: Stable to recovery Operative indication and findings: Patient's 53-year-old male with a left upper extremity fistula that has had worsened evidence of stenosis on the outflow with narrowing therefore he is here today for a fistulogram. Procedure in detail: Patient was brought to the special suite and placed in supine position. The left upper extremity is prepped and draped in usual sterile fashion. Procedure, performed, all parties are in agreement. Using ultrasound, the left upper extremity was identified the fistula. It was patent and compressible. Permanent images stored. Lidocaine was used and the skin was anesthetized. Micro-access needle was used to access and filling pregnancies with 6-Kyr[place]z sheath. A cystogram was performed showing significant high-grade narrowing of the distal mid fistula as well as the outflow anastomosis. Catheters were and wires were used to cross and a 7 x 40 balloon angioplasty was performed. There was significant improvement with less than 50% stenosis residual. This is the first time she left side, no further angioplasty was performed, would likely utilize drug-coated balloon at the next a fistulogram if it becomes necessary. Catheters and wires were removed. The sheath was removed and a [id number] suture was placed the patient was transferred to recovery in stable condition having tolerated the procedure well. Plan - Discharge Summary Discharge Rx Participant: No New Discharge Prescriptions: No Action carvediloL [Coreg] 25 mg PO BID Pantoprazole [Protonix] 40 mg PO DAILY Calcium Acetate [PhosLo] 1,334 mg PO TID-W/MEALS PRN PRN Reason: IF HE EATS A MEAL Sevelamer [Renvela] 3,200 mg PO BID-W/MEALS Insulin Glargine,Hum.rec.anlog [Basaglar Kwikpen U-100] 30 unit SQ QAM prednisoLONE ACETATE 1% OPHTH [Pred Forte 1%] 1 drop RIGHT EYE DAILY diphenhydrAMINE [Benadryl] 25 - 50 mg PO QID PRN PRN Reason: Allergy Symptoms/ITCHING Lidocaine-Prilocaine Cream [Emla Cream 2.5%/2.5%] 1 applic TOPICAL DAILY PRN PRN Reason: PORT ACCESS Famotidine [Pepcid] 20 mg PO DAILY Sevelamer [Renvela] 3,200 mg PO TID-W/MEALS PRN PRN Reason: IF HE EATS A MEAL Aspirin 81 mg PO DAILY #30 tab Insulin Aspart [NovoLOG Flexpen] 10 units SQ AC-TID Vit B Comp No.3/Folic/C/Biotin [Cassie-Lori Rx Tablet] 1 tab PO DAILY Discharge Medication List carvediloL [Coreg] 25 mg PO BID 06/27/20 [History] Pantoprazole [Protonix] 40 mg PO DAILY 10/08/20 [History] Calcium Acetate [PhosLo] 1,334 mg PO TID-W/MEALS PRN 03/01/21 [History] Sevelamer [Renvela] 3,200 mg PO BID-W/MEALS 09/05/21 [History] Insulin Glargine,Hum.rec.anlog [Basaglar Kwikpen U-100] 30 unit SQ QAM 10/28/21 [History] Insulin Aspart [NovoLOG Flexpen] 10 units SQ AC-TID 07/13/22 [History] prednisoLONE ACETATE 1% OPHTH [Pred Forte 1%] 1 drop RIGHT EYE DAILY 09/30/22 [History] Famotidine [Pepcid] 20 mg PO DAILY 07/01/23 [History] Lidocaine-Prilocaine Cream [Emla Cream 2.5%/2.5%] 1 applic TOPICAL DAILY PRN 07/01/23 [History] Sevelamer [Renvela] 3,200 mg PO TID-W/MEALS PRN 07/01/23 [History] Vit B Comp No.3/Folic/C/Biotin [Cassie-Lori Rx Tablet] 1 tab PO DAILY 07/01/23 [History] diphenhydrAMINE [Benadryl] 25 - 50 mg PO QID PRN 07/01/23 [History] Aspirin 81 mg PO DAILY #30 tab 07/02/23 [Rx] Follow up Appointment(s)/Referral(s): Farnaz Rome DO [STAFF PHYSICIAN] - 6 Weeks Activity/Diet/Wound Care/Special Instructions: May resume previous activity, previous medication previous diet. May return to bathing as previous. Remove suture Dialysis visit Discharge Disposition: HOME SELF-CARE
--- NOTE | 2023-12-29 16:03 | IR ---
EXAMINATION TYPE: IR fistula/abscess/sinus tract DATE OF EXAM: 12/29/2023 FLUOROSCOPY fistulagram, 1.6min fluoro, 6.22Nxyb8. 127 images submitted.
[2023-12-29 19:37] VITALS: BP 148/76; PULSE 84; RESP 16
== END | disposition home or self-care (01) ==
LOC: CATHCVL 11:02
PROVIDERS: ATTEND Surgery
DX: T82.858A Stenosis of other vascular prosthetic devices, implants and grafts, initial encounter (principal); N18.6 End stage renal disease; G56.00 Carpal tunnel syndrome, unspecified upper limb; E11.9 Type 2 diabetes mellitus without complications; E11.22 Type 2 diabetes mellitus with diabetic chronic kidney disease; I12.0 Hypertensive chronic kidney disease with stage 5 chronic kidney disease or end stage renal disease; M79.7 Fibromyalgia; Z86.711 Personal history of pulmonary embolism; G47.33 Obstructive sleep apnea (adult) (pediatric); Z79.4 Long term (current) use of insulin; Z79.01 Long term (current) use of anticoagulants; Z79.899 Other long term (current) drug therapy
CPT/HCPCS: 76937; 36902; 80048; C1894; C1769 ×3; C1725; J2250; J2001; J3010

== ENCOUNTER 2024-02-23 06:31 | Day surgery (SDC) | payer MEDICARE, OTHER ==
[2024-02-23] MEDS: LACTATED RINGERS 1,000 ML IV SCH (07:32)
[2024-02-23 07:34] LABS: Glucose,Whole Blood 112 mg/dL (70-110)
[2024-02-23] MEDS ORDERED: PROPOFOL 10 MG/ML 20 ML VIAL IV ONE (07:37)
[2024-02-23 07:48] VITALS: TEMP 98.3
--- NOTE | 2024-02-23 08:05 | P.PCN ---
Date of Procedure: 02/23/24 Procedure(s) Performed: BRIEF HISTORY: Patient is a 53-year-old pleasant -[place] male scheduled for an elective colonoscopy as a part of screening for colon cancer/positive cologuard. PROCEDURE PERFORMED: Colonoscopy with snare polypectomy, Endo Clip placement . PREOPERATIVE DIAGNOSIS: Screening for colon cancer/positive cologuard. IV sedation per Anesthesia. PROCEDURE: After informed consent was obtained, the patient, was brought into the endoscopy unit. IV sedation was administered by Anesthesia under continuous monitoring. Digital rectal examination was normal. Initially the Olympus CF-160 flexible video colonoscope was then inserted in the rectum, gradually advanced into the cecum without any difficulty. Careful examination was performed as the scope was gradually being withdrawn. Ileocecal valve and the appendiceal orifice were visualized and appeared normal. Prep was excellent. Mucosa of the cecum, had a 4 cm round polyp in the base of the cecum that was removed by piecemeal snare polypectomy and complete polypectomy accomplished. Following polypectomy Endo Clip was placed. The polyp was retrieved using a [place]adillo net. Mucosa of the ascending colon, transverse colon appeared normal. The descending colon there was a 1 cm 1.5 cm polyp removed by snare polypectomy. Rest of the, descending colon, sigmoid colon, and rectum appeared normal. Retroflexion was performed in the rectum and no lesions were seen. The patient tolerated the procedure well. IMPRESSION: 4 cm round polyp in the base of the cecum status post piecemeal snare polyp rectum and complete polypectomy accomplished followed by Endo Clip placement 1 cm and 1.5 cm descending polyp status post polypectomy RECOMMENDATIONS: Findings of this examination were discussed with the patient as well as his family.. He was advised to follow with the biopsy results. He'll be seen in office next week. Based the biopsy results will plan a repeat colonoscopy in 6 months to one year
[2024-02-23 08:26] VITALS: RESP 16
[2024-02-23 09:04] VITALS: BP 112/70; PULSE 68
== END 2024-02-23 09:46 | disposition home or self-care (01) ==
LOC: ORWHC2ENDO 06:31
PROVIDERS: ATTEND Internal Medicine Gastroenterology
DX: D12.0 Benign neoplasm of cecum (principal); D12.4 Benign neoplasm of descending colon; I10 Essential (primary) hypertension; G47.33 Obstructive sleep apnea (adult) (pediatric); K21.9 Gastro-esophageal reflux disease without esophagitis; E66.01 Morbid (severe) obesity due to excess calories; E11.22 Type 2 diabetes mellitus with diabetic chronic kidney disease; N18.6 End stage renal disease; Z79.4 Long term (current) use of insulin; Z79.899 Other long term (current) drug therapy; Z91.010 Allergy to peanuts; Z68.41 Body mass index [BMI] 40.0-44.9, adult
CPT/HCPCS: 88305; 45385; J2704; 45382

== ENCOUNTER → 2024-07-18 | Outpatient (CLI) | payer MEDICARE, OTHER ==
--- NOTE | 2024-08-24 14:44 | CONS ---
CONSULTATION REASON FOR CONSULTATION: Obstructive sleep apnea. HISTORY OF PRESENT ILLNESS: This patient is 53, diagnosed of having obstructive sleep apnea more than 12 years ago. The patient currently is not receiving any treatment. He has an older- generation ResMed S9 series, which is set at a pressure of 12 cm of water. The machine is functional the patient does not have any supplies and the patient has gained significant amount of weight over the past 10 years. He is actively symptomatic as the patient has loud snoring, excessive sleep fragmentation, and daytime sleepiness. He is going to bed around 1 a.m., waking up 7 a.m. in the morning. He feels non- refreshed, tired, and fatigued during the day. His weight is up and currently is weighing around 300 pounds. His [place] score is at 17. He is known to have end-stage renal disease and diabetes mellitus and chronic pain and fibromyalgia. He is very much interested in pursuing treatment. PAST MEDICAL HISTORY: 1. End-stage renal disease, on hemodialysis. 2. Obstructive sleep apnea. 3. Diabetes mellitus type 2. 4. Glaucoma. 5. Chronic pain. 6. Fibromyalgia. SURGICAL HISTORY: Includes 1. Bilateral eye surgery/glaucoma surgery. 2. ACL repair in the left lower extremity and construction of fistula in the left upper extremity. ALLERGIES: To peanuts. MEDICATIONS: Include 1. Nephrocaps. 2. Zofran. 3. Protonix. 4. Coreg. 5. Basaglar insulin. 6. NovoLog. 7. Flexeril. FAMILY HISTORY: Positive for hypertension and sleep apnea and diabetes in his father. REVIEW OF SYSTEMS: Fourteen-point review of system was done and the positive findings are mentioned in above History Of Present Illness. Vision is impaired due to the glaucoma. He does have some neuropathy. He does produce some urine despite him being on dialysis. No sleepwalking or sleep talking. No anxiety or panic attacks. No palpitation. No heartburn. No grinding of the teeth. No difficulties with memory and concentration. Feels fatigued and sleepy during the day. PHYSICAL EXAMINATION: VITAL SIGNS: BP is 119/80 with a pulse of 95, respirations 18, temperature 98.4, saturation 98% on room air, weight is 300 pounds. [place] Score is at 17. BMI 39.7. Neck size 18 and quarters of an inch. GENERAL APPEARANCE: Obese, calm, comfortable. HEAD: Atraumatic, normocephalic. NECK: Supple. There is no JVD. No goiter or neck masses. Mallampati class 4. LUNGS: Diminished otherwise clear. HEART: Sounds are regular rate and rhythm. Normal S1, S2. No S3, S4. No murmurs. ABDOMEN: Soft, nontender. No organomegaly. EXTREMITIES: AV fistula in the left upper extremity functional. NEUROLOGIC: Awake and alert x3. No focal neurological deficit. ASSESSMENT: 1. History of obstructive sleep apnea, symptomatic, as the patient is not receiving any treatment. 2. End-stage renal disease, on hemodialysis. 3. Diabetes mellitus type 2. 4. Glaucoma. 5. Fibromyalgia. PLAN: Conducted a polysomnography to re-establish diagnosis and this to be followed up by a CPAP titration study. The patient has an older-generation ResMed S9 series, which is set at a pressure of 12 cm of water. I provided him the AirFit and nasal mask and he will at least start his treatment again with his older machine by the time the patient is undergoing re- evaluation. Encourage weight loss, maintaining good sleep and hygiene measures. Maintain regular sleep schedule. A polysomnography and followup CPAP titration will be done and following that, the patient will be offered a new CPAP machine. MMODL / IJN: [id number] / NOEMI
== END ==
LOC: 3 N SLEEP 14:30
PROVIDERS: ATTEND Internal Medicine Critical Care Medicine
CPT/HCPCS: 99211

== ENCOUNTER 2024-07-19 19:38 | Outpatient (CLI) | payer MEDICARE, OTHER ==
--- NOTE | 2024-08-10 13:50 | P.PCN ---
Date of Procedure: 07/19/24 Operative Findings: Polysomnography report Date of service is 07/19/2024 Pertinent history 54-year-old male patient with previous history of obstructive sleep apnea coming in to reestablish diagnosis as the patient is interested ongoing therapy. The patient is chronically somnolent and sleepy with an [place] score of 17. The patient is known to have end-stage renal disease on hemodialysis along with diabetes mellitus fibromyalgia and previous history of glucoma. Noted the patient used to use a CPAP machine in the past with a pressure of 12 cm of water. He has not used his machine for 2 years. During this time, the patient has become more symptomatic and is interested in therapy. Pertinent physical findings The patient's height is 6 feet and 1 inch, weight is 300 pounds and a body mass index of 39.7 Technical description The patient was studied using a standard complex polysomnography protocol that included recording of the Lead II EKG, Central, occipital and frontal EEG, right and left outer canthus EOG, submental EMG, right and left anterior tibialis EMG, respiratory airflow by thermocouple and or pressure/flow transducer, respiratory efforts by abdominal and thoracic PVDF belts, oxygen saturation by cable oximetry. Position by observation synchronized the PSG. Equipment used: [employer]. Sleep characteristics The total recording duration was 411 minutes. Total sleeping time was 335.5 minutes and the overall sleep efficiency was calculated to be 80 to 1.6%. Laten cy to sleep onset was 8 minutes. Latency to REM sleep was 144 minutes. The sleep architecture was characterized by 11.3% stage I, 68.4% stage II, 0% stage III, 20.3% REM sleep. Respiratory events The sleep study showed a total of 37 obstructive apneas, 2 mixed apneas, 1 central apnea and 365 obstructive hypopneas. The resulting apnea-hypopnea index was 72.4. AHI during REM sleep was 80.3. This is consistent with severe obstructive sleep apnea Oxygenation analysis The patient had nocturnal oxygen desaturation with a minimum pulse ox of 61% during sleep. This patient spent approximately 58 minutes of sleep time below pulse ox of 90% and the patient spent approximately 15 minutes of the sleep time below pulse ox of 85%. Noted episodes of nocturnal oxygen desaturations were worse during REM sleep. Sleep continuity summary The patient had a total of 336 arousals with an arousal index of 16.1. The respiratory arousal index was 39. Periodic limb movement activity No significant periodic limb movement activity was noted or registered during the sleep study Cardiac analysis The average heart rate was 72 with a minimum heart rate of 51 and a maximum heart rate of 103. Assessment Severe symptomatic obstructive sleep apnea with an AHI of 72.4 Nocturnal oxygen desaturation secondary to above, minimum pulse ox of 61% Sleep fragmentation Chronic hypersomnia with an [place] score of 17 End-stage renal disease on hemodialysis Diabetes mellitus Fibromyalgia Plan Proceed with CPAP therapy regarding his severe symptomatic obstructive sleep apnea. The patient will be asked to come in to the sleep center to undergo an in lab CPAP titration study.
== END 2024-07-20 05:23 | disposition home or self-care (01) ==
LOC: 3 N SLEEP 19:38
PROVIDERS: ATTEND Internal Medicine Critical Care Medicine
CPT/HCPCS: 95810

== ENCOUNTER 2024-09-03 19:17 | Outpatient (CLI) | payer MEDICARE, OTHER ==
--- NOTE | 2024-09-11 23:19 | P.PCN ---
Date of Procedure: 09/03/24 Operative Findings: CPAP titration report Date of service is 09/03/2024 Pertinent history 54-year-old male patient with previous history of obstructive sleep apnea, underwent a recent home sleep study and the patient was again confirmed to have severe PAULA with an AHI of 72.4.. The patient is chronically somnolent and sleepy with an Severance score of 17. The patient is known to have end-stage renal disease on hemodialysis along with diabetes mellitus fibromyalgia and previous history of glucoma. Noted the patient used to use a CPAP machine in the past with a pressure of 12 cm of water. He has not used his machine for 2 years. During this time, the patient has become more symptomatic and is inte rested in therapy. Pertinent physical findings The patient's height is 6 feet and 1 inch, weight is 300 pounds and a body mass index of 39.7 Technical description The patient was studied using a standard complex polysomnography protocol that included recording of the Lead II EKG, Central, occipital and frontal EEG, right and left outer canthus EOG, submental EMG, right and left anterior tibialis EMG, respiratory airflow by thermocouple and or pressure/flow transducer, respiratory efforts by abdominal and thoracic PVDF belts, oxygen saturation by cable oximetry. Position by observation synchronized the PSG. Equipment used: [employer]. Stepwise CPAP titration was done to eliminate all obstructive respiratory events. Sleep characteristics Total recording duration was 4 to 6.5 minutes. The total sleep time was 352.0 minutes and the wake after sleep onset time was 34.5 minutes. The overall sleep efficiency was 86.6%. He sleep latency was 12 minutes and the latency to REM sleep was 48 minutes. The sleep architecture was characterized by 4.8% stage I, 68.9% stage II, 0% stage III and 28.8% REM sleep. The total arousal index was 4.3. Respiratory analysis CPAP titration was started initially at a pressure of 7 cm of water and the pressure was increased by increments of 1 cm to reach a maximum CPAP pressure of 13 cm of water. This was a very successful titration. All sleep stages were encountered and the patient was started in REM and non-REM sleep. At the target CPAP pressure of 13 cm of water, there was complete elevation of the obstructive respiratory events without any significant nocturnal oxygen desaturations. Sleep continuity summary The patient had a total of 25 arousals with an arousal index of 4.3. There was obvious improvement in the total arousal index while being on CPAP therapy and the respiratory arousal index was down to 1 Periodic limb movement activity No significant periodic limb movement activity that resulted into arousals. However, there was a total of 60 periodic limb movements counted with an index of 2.7 Cardiac analysis The average heart rate was 76 with a minimum heart rate of 70 and a maximum heart rate of 82 Assessment Severe symptomatic obstructive sleep apnea with an AHI of 72.4, the patient underwent a successful CPAP titration Sleep fragmentation, improved with CPAP therapy Chronic hypersomnia with an Severance score of 17 End-stage renal disease on hemodialysis Diabetes mellitus Fibromyalgia Plan Initiate CPAP therapy at a pressure of 13 cm of water with a C-Flex of 3. The patient will be offered an AirFit P10 small size nasal pillows. The patient will see back in the office in 30 to 90 days to assess clinical response and compliancy., Sleep hygiene measures. Nightly sleep schedule. Treat comor bidities. Will follow.
== END 2024-09-04 04:30 | disposition home or self-care (01) ==
LOC: 3 N SLEEP 19:17
PROVIDERS: ATTEND Internal Medicine Critical Care Medicine
CPT/HCPCS: 95811

== ENCOUNTER 2024-09-21 07:39 | Inpatient (IN) | payer MEDICARE, OTHER ==
--- NOTE | 2024-09-21 08:00 | ED ---
General Adult HPI - General Chief complaint: Recheck/Abnormal Lab/Rx Stated complaint: [place] Time Seen by Provider: 09/21/24 07:47 Source: patient, RN notes reviewed Mode of arrival: ambulatory Limitations: no limitations - History of Present Illness Initial comments: 54-year-old male presents emergency department from dialysis with chief complaint of fistula issues. Patient states that they attempted to access his fistula in which he states they came out dark to near black blood. They told him it was more likely to be clotted. Patient states that he believes he felt a thrill yesterday but states he cannot palpate 1 now currently. Patient states that his fistula was done by Dr. Rome. Patient denies any shortness of breath denies nausea vomit diarrhea constipation. He does have chronic pain that he deals with. He states it has been more bothersome the last few days but denies any trauma. - Related Data Home Medications Medication Instructions Recorded Confirmed carvediloL [Coreg] 25 mg PO BID 06/27/20 02/23/24 Pantoprazole [Protonix] 40 mg PO DAILY 10/08/20 02/23/24 Calcium Acetate [PhosLo] 1,334 mg PO TID-W/MEALS PRN 03/01/21 02/23/24 Insulin Glargine,Hum.rec.anlog 30 unit SQ QAM 10/28/21 02/23/24 [Basaglar Kwikpen U-100] Insulin Aspart [NovoLOG Flexpen] 10 units SQ AC-TID 07/13/22 02/23/24 prednisoLONE ACETATE 1% OPHTH 1 drop RIGHT EYE DAILY 09/30/22 02/23/24 [Pred Forte 1%] Famotidine [Pepcid] 20 mg PO DAILY 07/01/23 02/23/24 Lidocaine-Prilocaine Cream [Emla 1 applic TOPICAL DAILY PRN 07/01/23 02/23/24 Cream 2.5%/2.5%] Sevelamer [Renvela] 3,200 mg PO TID-W/MEALS PRN 07/01/23 02/23/24 Vit B Comp No.3/Folic/C/Biotin 1 tab PO DAILY 07/01/23 02/21/24 [Cassie-Lori Rx Tablet] Allergies Allergy/AdvReac Type Severity Reaction Status Date / Time peanut Allergy Anaphylaxis Verified 09/21/24 07:45 Review of Systems ROS Statement: Those systems with pertinent positive or pertinent negative responses have been documented in the HPI. ROS Other: All systems not noted in ROS Statement are negative. Past Medical History Past Medical History: Diabetes Mellitus, Dialysis, Eye Disorder, Fibromyalgia, Hypertension, Pneumonia, Pulmonary Embolus (PE), Renal Disease, Sleep Apnea/CPAP/BIPAP Additional Past Medical History / Comment(s): IDDM type II, neuropathy bilateral feet, chronic renal failure, anemia, chronic lower back and shoulders pain, herniated lumbar disk, glaucoma R eye, carpal tunnel syndrome bilaterally, bronchitis, PAULA with CPAP. Left drop foot, fistula left upper arm, hemodialysis ,, History of Any Multi-Drug Resistant Organisms: MRSA Date of last positivie culture/infection: 11/21/12 MDRO Source:: lower back Past Surgical History: Orthopedic Surgery Additional Past Surgical History / Comment(s): Incision and drainage back and R groin r/t abscesses removed, bilateral eye surgery for retinal repair, R eye surgery for glaucoma, fistula-left upper arm, cystoscopy with biopsy Past Anesthesia/Blood Transfusion Reactions: Postoperative Nausea & Vomiting (PONV) Additional Past Anesthesia/Blood Transfusion Reaction / Comment(s): pt stated has recieved blood transfusions-no known reaction. Past Psychological History: Anxiety Smoking Status: Never smoker Past Alcohol Use History: None Reported Past Drug Use History: None Reported - Past Family History Brother(s) Family Medical History: Cancer, Deep Vein Thrombosis (DVT) Additional Family Medical History / Comment(s): colon Father Family Medical History: Cancer Additional Family Medical History / Comment(s): Bladder cancer in father. Mother Additional Family Medical History / Comment(s): Mother of brain aneurysm General Exam Limitations: no limitations General appearance: alert, in no apparent distress Head exam: Present: atraumatic, normocephalic, normal inspection Eye exam: Present: normal appearance, PERRL, EOMI. Absent: scleral icterus, conjunctival injection, periorbital swelling ENT exam: Present: normal exam, normal oropharynx, mucous membranes moist Neck exam: Present: normal inspection, full ROM. Absent: tenderness, meningismus, lymphadenopathy Respiratory exam: Present: normal lung sounds bilaterally. Absent: respiratory distress, wheezes, rales, rhonchi, stridor Cardiovascular Exam: Present: regular rate, normal rhythm, normal heart sounds. Absent: systolic murmur, diastolic murmur, rubs, gallop, clicks Extremities exam: Present: other (Left arm fistula no palpable thrill) Neurological exam: Present: alert Skin exam: Present: warm, dry, intact, normal color. Absent: rash Course Vital Signs 09/21/24 07:42 Temperature 98.0 F Pulse Rate 103 H Respiratory 18 Rate Blood Pressure 181/95 O2 Sat by Pulse 98 Oximetry Medical Decision Making - Medical Decision Making Was pt. sent in by a medical professional or institution (, [facility], AIRPORT MAINTENANCE LABORER, urgent care, hospital, or half-way...) When possible be specific @ -Dialysis Did you speak to anyone other than the patient for history (EMS, parent, family, police, friend...)? What history was obtained from this source @ -No Did you review nursing and triage notes (agree or disagree)? Why? @ -I reviewed and agree with nursing and triage notes Were old charts reviewed (outside hosp., previous admission, EMS record, old EKG, old radiological studies, urgent care reports/EKG's, half-way records)? Report findings @ -No old charts were reviewed Differential Diagnosis (chest pain, altered mental status, abdominal pain women, abdominal pain men, vaginal bleeding, weakness, fever, dyspnea, syncope, headache, dizziness, GI bleed, back pain, seizure, CVA, palpatations, mental health, musculoskeletal)? @ -Blocked fistula, ESRD EKG interpreted by me (3pts min.). @ -None X-rays interpreted by me (1pt min.). @ -None done CT interpreted by me (1pt min.). @ -None done U/S interpreted by me (1pt. min.). @ -None done What testing was considered but not performed or refused? (CT, X-rays, U/S, labs)? Why? @ -None What meds were considered but not given or refused? Why? @ -None Did you discuss the management of the patient with other professionals (professionals i.e. [facility], AIRPORT MAINTENANCE LABORER, lab, RT, psych nurse, social studies teacher, vehicle dismantler, teacher, education officer, gearcase assembler)? Give summary @ -Vascular regarding fistula complications, EMH for admission Was smoking cessation discussed for >3mins.? @ -No Was critical care preformed (if so, how long)? @ -No Were there social determinants of health that impacted care today? How? (Homelessness, low income, unemployed, alcoholism, drug addiction, transportation, low edu. Level, literacy, decrease access to med. care, snf, r ehab)? @ -No Was there de-escalation of care discussed even if they declined (Discuss DNR or withdrawal of care, Hospice)? DNR status @ -No What co-morbidities impacted this encounter? (DM, HTN, Smoking, COPD, CAD, Cancer, CVA, ARF, Chemo, Hep., AIDS, mental health diagnosis, sleep apnea, morbid obesity)? @ -ESRD Was patient admitted / discharged? Hospital course, mention meds given and route, prescriptions, significant lab abnormalities, going to OR and other pertinent info. @ -Admitted patient presented for left fistula not functioning. Patient will be admitted for vascular intervention and dialysis. Undiagnosed new problem with uncertain prognosis? @ -No Drug Therapy requiring intensive monitoring for toxicity (Heparin, Nitro, Insulin, Cardizem)? @ -No Were any procedures done? @ -No Diagnosis/symptom? @ -Malfunctioning fistula, ESRD Acute, or Chronic, or Acute on Chronic? @ -Acute Uncomplicated (without systemic symptoms) or Complicated (systemic symptoms)? @ -Complicated Side effects of treatment? @ -No Exacerbation, Progression, or Severe Exacerbation? @ -No Poses a threat to life or bodily function? How? (Chest pain, [place], [place], pneumonia, PE, COPD, DKA, ARF, appy, cholecystitis, CVA, Diverticulitis, Homicidal, Suicidal, threat to staff... and all critical care pts) @ -No - Lab Data Result diagrams: 09/21/24 08:01 09/21/24 08:01 Lab Results 09/21/24 09/21/24 09/21/24 Range/Units 08:01 08:01 08:01 WBC 5.8 (3.8-10.6) k/uL RBC 4.34 (4.30-5.90) m/uL Hgb 13.3 (13.0-17.5) gm/dL Hct 39.5 (39.0-53.0) % MCV 91.0 (80.0-100.0) fL MCH 30.7 (25.0-35.0) pg MCHC 33.7 (31.0-37.0) g/dL RDW 13.6 (11.5-15.5) % Plt Count 163 (150-450) k/uL MPV 9.1 Neutrophils % 51 % Lymphocytes % 41 % Monocytes % 4 % Eosinophils % 2 % Basophils % 1 % Neutrophils # 2.9 (1.3-7.7) k/uL Lymphocytes # 2.3 (1.0-4.8) k/uL Monocytes # 0.2 (0-1.0) k/uL Eosinophils # 0.1 (0-0.7) k/uL Basophils # 0.0 (0-0.2) k/uL PT 10.6 (10.0-12.5) sec INR 1.0 (<1.2) APTT 27.5 (22.0-30.0) sec Sodium 141 (137-145) mmol/L Potassium 4.8 (3.5-5.1) mmol/L Chloride 101 (98-107) mmol/L Carbon Dioxide 28 (22-30) mmol/L Anion Gap 12 mmol/L BUN 61 H (9-20) mg/dL Creatinine 10.14 H* (0.66-1.25) mg/dL Est GFR (CKD-EPI)AfAm 6 (>60 ml/min/1.73 sqM) Est GFR (CKD-EPI)NonAf 5 (>60 ml/min/1.73 sqM) Glucose 145 H (74-99) mg/dL Calcium 9.5 (8.4-10.2) mg/dL Phosphorus 6.3 H (2.5-4.5) mg/dL Magnesium 2.6 H (1.6-2.3) mg/dL Total Bilirubin 0.6 (0.2-1.3) mg/dL AST 18 (17-59) U/L ALT 14 (4-49) U/L Alkaline Phosphatase 119 (38-126) U/L Total Protein 7.2 (6.3-8.2) g/dL Albumin 4.2 (3.5-5.0) g/dL Disposition Clinical Impression: Dialysis AV fistula malfunction, ESRD (end stage renal disease) Disposition: ADMITTED IP TO THIS HOSP Condition: Fair Referrals: Sharri Mckeon MD [Primary Care Provider] - 1-2 days Time of Disposition: 09:10
[2024-09-21 08:14] LABS: Basophils % (A) 1 %; Eosinophils # (A) 0.1 k/uL (0-0.7); Eosinophils % (A) 2 %; HCT 39.5 % (39.0-53.0); HGB 13.3 gm/dL (13.0-17.5); Lymphocytes # (A) 2.3 k/uL (1.0-4.8); Lymphocytes % (A) 41 %; MCH 30.7 pg (25.0-35.0); MCHC 33.7 g/dL (31.0-37.0); Mean Platelet Volume 9.1; Monocytes # (A) 0.2 k/uL (0-1.0); Monocytes % (A) 4 %; Neutrophils # (A) 2.9 k/uL (1.3-7.7); Neutrophils % (A) 51 %; Platelet Count 163 k/uL (150-450); RBC 4.34 m/uL (4.30-5.90); RDW 13.6 % (11.5-15.5); WBC 5.8 k/uL (3.8-10.6)
[2024-09-21 08:22] LABS: Partial Thromboplastin Time 27.5 sec (22.0-30.0); Prothrombin Time 10.6 sec (10.0-12.5)
[2024-09-21 08:29] LABS: ALT 14 U/L (4-49); AST 18 U/L (17-59); African American GFR (CKD) 6 (>60 ml/min/1.73 sqM); Albumin 4.2 g/dL (3.5-5.0); Alkaline Phosphatase 119 U/L (38-126); Anion Gap 12 mmol/L; Blood Urea Nitrogen 61 mg/dL (9-20); Calcium 9.5 mg/dL (8.4-10.2); Carbon Dioxide 28 mmol/L (22-30); Chloride 101 mmol/L (98-107); Glucose 145 mg/dL (74-99); Magnesium 2.6 mg/dL (1.6-2.3); Non-African American GFR(CKD) 5 (>60 ml/min/1.73 sqM); Phosphorus 6.3 mg/dL (2.5-4.5); Potassium 4.8 mmol/L (3.5-5.1); Sodium 141 mmol/L (137-145); Total Bilirubin 0.6 mg/dL (0.2-1.3); Total Protein 7.2 g/dL (6.3-8.2)
[2024-09-21] MEDS ORDERED: NALOXONE 0.4 MG/ML 1 ML VIAL IV PRN (09:07)
[2024-09-21] MEDS: HYDROmorphone 0.5 MG/0.5 ML SYRINGE IVP PRN (10:37)
[2024-09-21] MEDS ORDERED: SEVELAMER 800 MG TAB PO PRN (10:57)
[2024-09-21] MEDS ORDERED: DEXTROSE 50% SYRINGE 50 ML IVP PRN ×2 (10:58)
[2024-09-21] MEDS: prednisoLONE ACETATE 1% OPHTH DROPS 5 ML BTL RIGHT EYE SCH (11:16)
[2024-09-21] MEDS: PANTOPRAZOLE 40 MG TABLET PO SCH (11:17)
[2024-09-21] MEDS: FAMOTIDINE 20 MG TAB PO SCH (11:17)
--- NOTE | 2024-09-21 11:29 | P.GSCN ---
History of Present Illness Consult date: 09/21/24 Reason for Consult: Malfunctioning fistula Requesting physician: Wes Sun History of present illness: This a pleasant 54-year-old -[place] male who presented to the emergency department after going to dialysis today and they were unable to perform dialysis. States that when they stuck the needle and they just got a dark black looking blood. He is a Wednesday schedule. Last dialysis was on Wednesday. He states it was functioning fine. Yesterday afternoon he felt his arm and noted that there was no palpable thrill. He denies any shortness of breath, chest pain, nausea or vomiting. Denies any pain in his left upper extremity. Just complaining of back pain which he states is chronic. Review of Systems A 14 point review systems was completed all pertinent positives and negatives as stated in the HPI. Past Medical History Past Medical History: Diabetes Mellitus, Dialysis, Eye Disorder, Fibromyalgia, Hypertension, Pneumonia, Pulmonary Embolus (PE), Renal Disease, Sleep Apnea/CPAP/BIPAP Additional Past Medical History / Comment(s): IDDM type II, neuropathy bilateral feet, chronic renal failure, anemia, chronic lower back and shoulders pain, herniated lumbar disk, glaucoma R eye, carpal tunnel syndrome bilaterally, bronchitis, PAULA with CPAP. Left drop foot, fistula left upper arm, hemodialysis History of Any Multi-Drug Resistant Organisms: MRSA Year Discovered:: 11/21/12 MDRO Source:: lower back Past Surgical History: Orthopedic Surgery Additional Past Surgical History / Comment(s): Incision and drainage back and R groin r/t abscesses removed, bilateral eye surgery for retinal repair, R eye surgery for glaucoma, fistula-left upper arm, cystoscopy with biopsy Past Anesthesia/Blood Transfusion Reactions: Postoperative Nausea & Vomiting (PONV) Additional Past Anesthesia/Blood Transfusion Reaction / Comm: pt stated has recieved blood transfusions-no known reaction. Past Psychological History: Anxiety Smoking Status: Never smoker Past Alcohol Use History: None Reported Past Drug Use History: None Reported - Past Family History Brother(s) Family Medical History: Cancer, Deep Vein Thrombosis (DVT) Additional Family Medical History / Comment(s): colon Father Family Medical History: Cancer Additional Family Medical History / Comment(s): Bladder cancer in father. Mother Additional Family Medical History / Comment(s): Mother of brain aneurysm Medications and Allergies Home Medications Medication Instructions Recorded Confirmed Type carvediloL [Coreg] 25 mg PO BID 06/27/20 02/23/24 History Calcium Acetate [PhosLo] 1,334 mg PO TID-W/MEALS 03/01/21 09/21/24 History Insulin Glargine,Hum.rec.anlog 30 unit SQ DAILY 10/28/21 09/21/24 History [Basaglar Kwikpen U-100] Insulin Aspart [NovoLOG Flexpen] 3 units SQ TID-W/MEALS 07/13/22 09/21/24 History prednisoLONE ACETATE 1% OPHTH 1 drop RIGHT EYE DAILY 09/30/22 09/21/24 History [Pred Forte 1%] Famotidine [Pepcid] 20 mg PO DAILY 07/01/23 09/21/24 History Lidocaine-Prilocaine Cream [Emla 1 applic TOPICAL DAILY PRN 07/01/23 09/21/24 History Cream 2.5%/2.5%] Sevelamer [Renvela] 3,200 mg PO TID-W/MEALS 07/01/23 09/21/24 History Vit B Comp No.3/Folic/C/Biotin 1 tab PO DAILY 07/01/23 02/21/24 History [Cassie-Lori Rx Tablet] Dulaglutide [Trulicity] 3 mg SQ WE 09/21/24 09/21/24 History Insulin Aspart [NovoLOG Flexpen] See Protocol SQ TID-W/MEALS PRN 09/21/24 09/21/24 History Allergies Allergy/AdvReac Type Severity Reaction Status Date / Time peanut Allergy Anaphylaxis Verified 09/21/24 11:01 Surgical - Exam Vital Signs Temp Pulse Resp BP Pulse Ox 98.0 F 103 H 18 181/95 98 09/21/24 07:42 09/21/24 07:42 09/21/24 07:42 09/21/24 07:42 09/21/24 07:42 General appearance: The patient is alert, oriented, appears in no acute distress. HET: Head is normocephalic and atraumatic. Pupils are equal and reactive. Neck: Supple. Heart: Regular. Lungs: Equal expansion, normal respiratory effort. Abdomen: Soft, nontender, nondistended. Extremities: Normal skin color and turgor. Palpable radial pulses. Left upper extremity fistula with no palpable thrill or audible bruit. Neurological: No focal deficits. Strength and sensation are grossly intact. Results - Labs 09/21/24 08:01 09/21/24 08:01 Abnormal Lab Results - Last 24 Hours (Table) 09/21/24 Range/Units 08:01 BUN 61 H (9-20) mg/dL Creatinine 10.14 H* (0.66-1.25) mg/dL Glucose 145 H (74-99) mg/dL Phosphorus 6.3 H (2.5-4.5) mg/dL Magnesium 2.6 H (1.6-2.3) mg/dL Diabetes panel 09/21/24 Range/Units 08:01 Sodium 141 (137-145) mmol/L Potassium 4.8 (3.5-5.1) mmol/L Chloride 101 (98-107) mmol/L Carbon Dioxide 28 (22-30) mmol/L BUN 61 H (9-20) mg/dL Creatinine 10.14 H* (0.66-1.25) mg/dL Glucose 145 H (74-99) mg/dL Calcium 9.5 (8.4-10.2) mg/dL AST 18 (17-59) U/L ALT 14 (4-49) U/L Alkaline Phosphatase 119 (38-126) U/L Total Protein 7.2 (6.3-8.2) g/dL Albumin 4.2 (3.5-5.0) g/dL Calcium panel 09/21/24 Range/Units 08:01 Calcium 9.5 (8.4-10.2) mg/dL Phosphorus 6.3 H (2.5-4.5) mg/dL Albumin 4.2 (3.5-5.0) g/dL Pituitary panel 09/21/24 Range/Units 08:01 Sodium 141 (137-145) mmol/L Potassium 4.8 (3.5-5.1) mmol/L Chloride 101 (98-107) mmol/L Carbon Dioxide 28 (22-30) mmol/L BUN 61 H (9-20) mg/dL Creatinine 10.14 H* (0.66-1.25) mg/dL Glucose 145 H (74-99) mg/dL Calcium 9.5 (8.4-10.2) mg/dL Adrenal panel 09/21/24 Range/Units 08:01 Sodium 141 (137-145) mmol/L Potassium 4.8 (3.5-5.1) mmol/L Chloride 101 (98-107) mmol/L Carbon Dioxide 28 (22-30) mmol/L BUN 61 H (9-20) mg/dL Creatinine 10.14 H* (0.66-1.25) mg/dL Glucose 145 H (74-99) mg/dL Calcium 9.5 (8.4-10.2) mg/dL Total Bilirubin 0.6 (0.2-1.3) mg/dL AST 18 (17-59) U/L ALT 14 (4-49) U/L Alkaline Phosphatase 119 (38-126) U/L Total Protein 7.2 (6.3-8.2) g/dL Albumin 4.2 (3.5-5.0) g/dL Assessment and Plan Assessment: 1. Malfunctioning left upper extremity AV fistula 2. End-stage renal disease requiring hemodialysis Plan: 1. Keep n.p.o. 2. Patient scheduled for left upper extremity fistulogram with possible angioplasty/thrombectomy 3. Hemodialysis per nephrology Thank you for this consultation. The impression and plan of care has been dictated as directed. I performed a history and examination of this patient, discussed the same with the dictator. I agree with the dictator's note ,documented as a scribe. Any additional findings or plans will be noted.
[2024-09-21] MEDS: INSULIN ASPART (NovoLOG) 100 UNIT/ML VIAL SQ SCH (11:52)
--- NOTE | 2024-09-21 12:44 | P.NPCON ---
History of Present Illness - Reason for Consult end stage renal disease - History of Present Illness Reason for consultation: End-stage renal disease History of present illness: Patient is a 54-year-old male seen in renal consultation for end-stage renal disease. He is maintained on hemodialysis on Wednesday schedule. Patient has left upper extremity AV fistula. Patient states he went for hemodialysis this morning and they could not do the dialysis due to malfunctioning access. Patient states they only kiki dark looking blood and subsequently sent her to the hospital. He has been seen by vascular surgery and is scheduled to undergo fistulogram later today. Potassium level stable at 4.8. Patient has longstanding history of diabetes. He denies history of coronary artery disease. He does make urine. No vomiting or diarrhea. No fever or chills. Vital signs are stable. General: No acute distress. HEENT: Head exam is unremarkable. LUNGS: No audible rhonchi or wheezes. HEART: Rate and Rhythm are regular. ABDOMEN: Obese, nontender. EXTREMITITES: No edema. Past Medical History Past Medical History: Diabetes Mellitus, Dialysis, Eye Disorder, Fibromyalgia, Hypertension, Pneumonia, Pulmonary Embolus (PE), Renal Disease, Sleep Stock Cutter ea/CPAP/BIPAP Additional Past Medical History / Comment(s): IDDM type II, neuropathy bilateral feet, chronic renal failure, anemia, chronic lower back and shoulders pain, zakia iated lumbar disk, glaucoma R eye, carpal tunnel syndrome bilaterally, bronchitis, PAULA with CPAP. Left drop foot, fistula left upper arm, hemodialysis History of Any Multi-Drug Resistant Organisms: MRSA Date of last positivie culture/infection: 11/21/12 MDRO Source:: lower back Past Surgical History: Orthopedic Surgery Additional Past Surgical History / Comment(s): Incision and drainage back and R groin r/t abscesses removed, bilateral eye surgery for retinal repair, R eye surgery for glaucoma, fistula-left upper arm, cystoscopy with biopsy Past Anesthesia/Blood Transfusion Reactions: Postoperative Nausea & Vomiting (PONV) Additional Past Anesthesia/Blood Transfusion Reaction / Comment(s): pt stated has recieved blood transfusions-no known reaction. Past Psychological History: Anxiety Smoking Status: Never smoker Past Alcohol Use History: None Reported Past Drug Use History: None Reported - Past Family History Brother(s) Family Medical History: Cancer, Deep Vein Thrombosis (DVT) Additional Family Medical History / Comment(s): colon Father Family Medical History: Cancer Additional Family Medical History / Comment(s): Bladder cancer in father. Mother Additional Family Medical History / Comment(s): Mother of brain aneurysm Medications and Allergies Home Medications Medication Instructions Recorded Confirmed Type carvediloL [Coreg] 25 mg PO DIRECTED 06/27/20 09/21/24 History Calcium Acetate [PhosLo] 1,334 mg PO TID-W/MEALS 03/01/21 09/21/24 History Insulin Glargine,Hum.rec.anlog 30 unit SQ DAILY 10/28/21 09/21/24 History [Basaglar Kwikpen U-100] Insulin Aspart [NovoLOG Flexpen] 3 units SQ TID-W/MEALS 07/13/22 09/21/24 History prednisoLONE ACETATE 1% OPHTH 1 drop RIGHT EYE DAILY 09/30/22 09/21/24 History [Pred Forte 1%] Famotidine [Pepcid] 20 mg PO DAILY 07/01/23 09/21/24 History Lidocaine-Prilocaine Cream [Emla 1 applic TOPICAL DAILY PRN 07/01/23 09/21/24 History Cream 2.5%/2.5%] Sevelamer [Renvela] 3,200 mg PO TID-W/MEALS 07/01/23 09/21/24 History Dulaglutide [Trulicity] 3 mg SQ WE 09/21/24 09/21/24 History Folic Acid/Vit B Complex and C 0.8 mg PO DAILY 09/21/24 09/21/24 History [Nephro-Lori Tablet] Insulin Aspart [NovoLOG Flexpen] See Protocol SQ TID-W/MEALS PRN 09/21/24 09/21/24 History carvediloL [Coreg] 6.25 mg PO DIRECTED 09/21/24 09/21/24 History Allergies Allergy/AdvReac Type Severity Reaction Status Date / Time peanut Allergy Anaphylaxis Verified 09/21/24 11:01 Physical Exam Vitals: Vital Signs Temp Pulse Resp BP Pulse Ox 09/21/24 10:39 88 22 146/81 97 09/21/24 07:42 98.0 F 103 H 18 181/95 98 Intake and Output 09/20/24 09/21/24 09/21/24 22:59 06:59 14:59 Other: Weight 137 kg Results - Lab Results Most recent lab results Calcium 9.5 mg/dL (8.4-10.2) 09/21/24 08:01 Phosphorus 6.3 mg/dL (2.5-4.5) H 09/21/24 08:01 Magnesium 2.6 mg/dL (1.6-2.3) H 09/21/24 08:01 09/21/24 08:01 09/21/24 08:01 Assessment and Plan Plan: Assessment: 1. End-stage renal disease maintained on hemodialysis on Wednesday schedule via left upper extremity fistula. 2. Malfunctioning AV fistula scheduled for fistulogram later today. 3. Chronic kidney disease mineral bone disease maintained on Renvela. 4. Diabetes mellitus. 5. Hypertension with chronic kidney disease. Plan: Hemodialysis today once access use cleared by vascular surgery. Resume Coreg. Thank you for the consultation. I will continue to follow the patient with you during his hospital stay.
[2024-09-21] MEDS: fentaNYL (PF) 50 MCG/ML 2 ML AMP IVP ONE (13:45)
[2024-09-21] MEDS: LIDOCAINE 1% INJ 10MG/ML (20 ML MDV) SQ ONE (13:45)
[2024-09-21] MEDS: MIDAZOLAM 2 MG/2 ML VIAL IVP ONE (13:45)
[2024-09-21] MEDS: ALTEPLASE 2 MG VIAL (CATHFLO) IA ONE ×3 (14:09→14:40)
[2024-09-21] MEDS: SODIUM CHLORIDE 0.9% 500 ML 500 ML IV ONE (14:45)
[2024-09-21] MEDS: HEPARIN SODIUM,PORCINE 10,000 UNIT in SODIUM CHLORIDE 0.9% 1,000 ML IRRIGATION ONE (14:46)
[2024-09-21] MEDS: IOPAMIDOL-370 100ML BTL INJ ONE (14:46)
--- NOTE | 2024-09-21 15:20 | IR ---
EXAMINATION TYPE: IR fistula/abscess/sinus tract DATE OF EXAM: 09/21/2024 FLUOROSCOPY fistula not working. 15.6min fluoro, 18.6Gycm2 442 images submitted. [facility], , 09/21/2024 3:17 PM
--- NOTE | 2024-09-21 15:29 | P.OP ---
Date of Procedure: 09/21/24 Description of Procedure: Preoperative diagnosis: Thrombosed left likely brachiocephalic AV fistula Postoperative diagnosis: Same, multiple areas of in graft stenosis, outflow and inflow stenosis Procedure: Ultrasound-guided AV fistula access 2 Fistulogram Pharmacal mechanical thrombectomy with 6-Vietnamese AngioJet Percutaneous transluminal balloon angioplasty of the inflow 5 x 40, Percutaneous transluminal balloon angioplasty outflow 7 x 40 Moderate conscious sedation 69 minutes, personal monitoring certified RN administration with hemodynamic monitoring Surgeon: Farnaz Rome D.O. EBL: Less than 10 mL IV fluids: See records Urine output: Not measured Drains: None Complications: None immediately apparent Condition: Stable to recovery Operative indication and findings: Patient is a 54-year-old male with a brachiocephalic left left upper arm who was unable to get dialysis on due to thrombosis of the graft. His last dialysis was Wednesday. He presents for fistulogram and intervention. He seemingly understands the plan is willing to proceed. Procedure in detail: Patient was taken to the special suite and placed in supine position. Left upper extremity is prepped and draped in usual sterile fashion. A preprocedure timeout was performed, all parties were in agreement. Using ultrasound, initially in the outflow direction, the fistula was accessed. Permanent images stored. Catheters and wires were utilized passed into the outflow vein and venogram was performed showing mild degree of outflow stenosis in the cephalic vein. Catheter was then drawn back until the level of the outflow anastomosis which did appear to be thrombosed. tPA was instilled via a pullback method. Dwelling time was allowed and during this time, access was obtained towards the inflow direction. Again using ultrasound the fistula was cannulated and a 6-Vietnamese sheath was placed. Catheters and wires were placed into the brachial artery and images performed showing patent arterial vasculature That point the arterial inflow was treated with TPA instillation. While this was dwelling, the suction thrombectomy portion was performed of the outflow. Following this outflow imaging was performed. There was evidence of stenosis in the graft and at the anastomosis therefore 7 x 40 balloon was used for angioplasty. At this time the cephalic vein at the level of the axilla was there was improvement there was good flow through. Attention was then turned towards the inflow. Suction thrombectomy was performed. At this time due to previous visualization of areas of stenosis on the ultrasound, after suction thrombectomy performed a 5 x 40 \balloon was utilized to angioplasty this inflow area as well as the anastomosis. Repeat images performed, there was significant improvement of flow through the fistula. There appeared to be adequate pulse to the graft with flow throughout. Final imaging was performed showing continued improvement of the outflow anastomosis. There was some area of chronic thrombus at the aneurysmal portion which was unable to be extracted fully. Flow appeared to be gomez through the fistula itself therefore at that point catheters and wires were removed. The sheath was removed and [id number] sutures were placed at each site. Dressings were placed the patient was allowed awaken from sedation and transferred to recovery in stable condition having tolerated the procedure well.
[2024-09-21] MEDS: carvediloL 6.25 MG TAB PO SCH (17:28)
[2024-09-21 17:51] LABS: Glucose,Whole Blood 86 mg/dL (70-110)
[2024-09-21 20:00] LABS: Glucose,Whole Blood 155 mg/dL (70-110)
[2024-09-21] MEDS: FUROSEMIDE 10 MG/ML 10 ML VIAL IV SCH (20:21)
[2024-09-21] MEDS: diphenhydrAMINE 25 MG CAP PO STA (21:13)
[2024-09-21] MEDS ORDERED: NON FORMULARY DRUG (Carvedilol [Coreg] 25 MG Tablet) PO SCH (23:30)
--- NOTE | 2024-09-21 23:52 | P.HPIM ---
History of Present Illness H&P Date: 09/21/24 Chief Complaint: AV fistula malfunction Patient is a 54-year-old male with a past medical history of ESRD on hemodialysis TTS left arm AV fistula, diabetes type 2 insulin-dependent, obstructive sleep apnea, chronic low back pain, diabetic peripheral neuropathy, hypertension, fibromyalgia, anxiety and other medical problems presents to ER due to left arm AV fistula malfunction. Patient states that he went to hemodialysis and found that his left arm AV fistula could not be accessed and states that it came out dark blood. They told him it was more likely clotted. Patient also believes that he felt a thrill yesterday but states that he can palpate currently. Otherwise denying increased left hand swelling. No fever no chills. No complaints of chest pain or shortness of breath. Denied any recent trauma. Laboratory data showed WBC 5.8 hemoglobin 13.3 and platelets 163 Sodium 141 potassium 4.8 chloride 101 bicarb is 28 BUN 61 and creatinine 10.1 and blood sugar 145 magnesium 2.6 liver enzymes not elevated. Review of Systems Constitutional: Patient denies any fever or chills . No generalized weakness or weight loss. Abdomen: Patient denied nausea vomiting and diarrhea and abdominal pain. Cardiovascular: Patient denies any chest pain or short of breath no palpitations. Respiratory: patient denied any cough or sputum production. No shortness of breath Neurologic: Patient denied any numbness or tingling. no headache. Musculoskeletal: Patient denies any complaints of joint swelling or deformity. Skin: Negative Psychiatric: Negative Endocrine: No heat or cold intolerance. No recent weight gain. Genitourinary: No dysuria or hematuria. All other 14 point ROS negative except the above Past Medical History Past Medical History: Diabetes Mellitus, Dialysis, Eye Disorder, Fibromyalgia, Hypertension, Pneumonia, Pulmonary Embolus (PE), Renal Disease, Sleep Apnea/CPAP/BIPAP Additional Past Medical History / Comment(s): IDDM type II, neuropathy bilateral feet, chronic renal failure, anemia, chronic lower back and shoulders pain, herniated lumbar disk, glaucoma R eye, carpal tunnel syndrome bilaterally, bronchitis, PAULA with CPAP. Left drop foot, fistula left upper arm, hemodialysis ,, History of Any Multi-Drug Resistant Organisms: MRSA Date of last positivie culture/infection: 11/21/12 MDRO Source:: lower back Past Surgical History: Orthopedic Surgery Additional Past Surgical History / Comment(s): Incision and drainage back and R groin r/t abscesses removed, bilateral eye surgery for retinal repair, R eye surgery for glaucoma, fistula-left upper arm, cystoscopy with biopsy Past Anesthesia/Blood Transfusion Reactions: Postoperative Nausea & Vomiting (PONV) Additional Past Anesthesia/Blood Transfusion Reaction / Comment(s): pt stated has recieved blood transfusions-no known reaction. Past Psychological History: Anxiety Smoking Status: Never smoker Past Alcohol Use History: None Reported Past Drug Use History: None Reported - Past Family History Brother(s) Family Medical History: Cancer, Deep Vein Thrombosis (DVT) Additional Family Medical History / Comment(s): colon Father Family Medical History: Cancer Additional Family Medical History / Comment(s): Bladder cancer in father. Mother Additional Family Medical History / Comment(s): Mother of brain aneurysm Medications and Allergies Home Medications Medication Instructions Recorded Confirmed Type carvediloL [Coreg] 25 mg PO DIRECTED 06/27/20 09/21/24 History Calcium Acetate [PhosLo] 1,334 mg PO TID-W/MEALS 03/01/21 09/21/24 History Insulin Glargine,Hum.rec.anlog 30 unit SQ DAILY 10/28/21 09/21/24 History [Basaglar Kwikpen U-100] Insulin Aspart [NovoLOG Flexpen] 3 units SQ TID-W/MEALS 07/13/22 09/21/24 History prednisoLONE ACETATE 1% OPHTH 1 drop RIGHT EYE DAILY 09/30/22 09/21/24 History [Pred Forte 1%] Famotidine [Pepcid] 20 mg PO DAILY 07/01/23 09/21/24 History Lidocaine-Prilocaine Cream [Emla 1 applic TOPICAL DAILY PRN 07/01/23 09/21/24 History Cream 2.5%/2.5%] Sevelamer [Renvela] 3,200 mg PO TID-W/MEALS 07/01/23 09/21/24 History Dulaglutide [Trulicity] 3 mg SQ WE 09/21/24 09/21/24 History Folic Acid/Vit B Complex and C 0.8 mg PO DAILY 09/21/24 09/21/24 History [Nephro-Lori Tablet] Insulin Aspart [NovoLOG Flexpen] See Protocol SQ TID-W/MEALS PRN 09/21/24 09/21/24 History carvediloL [Coreg] 6.25 mg PO DIRECTED 09/21/24 09/21/24 History Allergies Allergy/AdvReac Type Severity Reaction Status Date / Time peanut Allergy Anaphylaxis Verified 09/21/24 11:01 Physical Exam Vitals: Vital Signs Temp Pulse Resp BP Pulse Ox 09/21/24 10:39 88 22 146/81 97 09/21/24 07:42 98.0 F 103 H 18 181/95 98 Intake and Output 09/20/24 09/21/24 09/21/24 22:59 06:59 14:59 Other: Weight 137 kg PHYSICAL EXAMINATION: Patient is lying in the bed comfortably, no acute distress, awake alert and oriented.. HEENT: Normocephalic. Neck is supple. Pupils reactive. Nostrils clear. Oral cavi ty is moist. Neck reveals no JVD, carotid bruits, or thyromegaly. CHEST EXAMINATION: Trachea is central. Symmetrical expansion. Bibasilar diminished sounds. Lung bryant clear to auscultation and percussion. CARDIAC: Normal S1, S2 with no gallops. No murmurs ABDOMEN: Soft. Bowel sounds normal. No organomegaly. No abdominal bruits. Extremities: reveal no edema. Left upper extremity AV fistula with no thrill noted. No clubbing or cyanosis Neurologically awake, alert, oriented x3 with well-coordinated movements. No focal deficits noted Skin: No rash or skin lesions. Psychiatric: Coperative. Nonsuicidal Musculoskeletal: No joint swelling or deformity. Normal range of motion. Results CBC & Chem 7: 09/21/24 08:01 09/21/24 08:01 Labs: Abnormal Lab Results - Last 24 Hours (Table) 09/21/24 Range/Units 08:01 BUN 61 H (9-20) mg/dL Creatinine 10.14 H* (0.66-1.25) mg/dL Glucose 145 H (74-99) mg/dL Phosphorus 6.3 H (2.5-4.5) mg/dL Magnesium 2.6 H (1.6-2.3) mg/dL Thrombosis Risk Factor Assmnt - DVT/VTE Prophylaxis DVT/VTE Prophylaxis: Pharmacologic Prophylaxis ordered Assessment and Plan Assessment: Left upper extremity AV fistula malfunction. ESRD on hemodialysis TTS Diabetes type 2 insulin-dependent and also on degludec Hypertension Diabetic peripheral neuropathy Chronic low back pain Fibromyalgia Anxiety DVT prophylaxis with heparin subcu Plan: Patient will be continued on telemonitoring. Continue with home blood pressure medications including Coreg and insulin regimen. Titrate dose as needed. Continue pain management and follow-up closely. Vascular surgery and nephrology was consulted.. Time with Patient: Greater than 30
[2024-09-22] MEDS: NON FORMULARY DRUG (Carvedilol [Coreg] 25 MG Tablet) PO SCH (01:21)
[2024-09-22] MEDS: carvediloL 6.25 MG TAB PO SCH (01:24)
[2024-09-22 05:47] LABS: Glucose,Whole Blood 82 mg/dL (70-110)
[2024-09-22] MEDS: carvediloL 12.5 MG TAB PO SCH (05:53)
--- NOTE | 2024-09-22 10:40 | P.PN ---
Progress Note - Text Progress Note Date: 09/22/24 Patient is seen as a follow-up. Yesterday he underwent fistulogram status post pharmacomechanical thrombectomy and balloon angioplasty. It was reported following procedure dialysis nurse attempted dialysis however was unable to access. Today he has no palpable thrill or audible bruit. Will plan to move forward with tunneled catheter placement today. Patient agreeable to tunneled catheter placement. This was discussed with Dr. Werner from nephrology. The impression and plan of care has been dictated as directed. Dr. Rome I performed a history and examination of this patient, discussed the same with the dictator. I agree with the dictator's note ,documented as a scribe. Any additional findings or plans will be noted.
--- NOTE | 2024-09-22 11:36 | P.PN ---
Subjective Patient is seen in follow-up for end-stage renal disease. He is maintained on hemodialysis on Wednesday schedule. Permacath placement scheduled for this afternoon. No active complaints. Vital signs are stable. General: No acute distress. HEENT: Head exam is unremarkable. LUNGS: No audible rhonchi or wheezes. HEART: Rate and Rhythm are regular. ABDOMEN: Nontender. Obese. EXTREMITITES: No edema. Objective - Vital Signs Vital signs: Vital Signs Temp 97.9 F 09/22/24 07:00 Pulse 82 09/22/24 07:00 Resp 15 09/22/24 07:00 BP 144/81 09/22/24 07:00 Pulse Ox 99 09/22/24 07:00 FiO2 Intake & Output 09/21/24 09/22/24 09/22/24 18:59 06:59 18:59 Intake Total 50 0 Balance 50 0 Weight 137 kg Intake: IV 50 Oral 0 Other: Voiding Method Toilet Toilet Toilet # Voids 3 - Labs CBC & Chem 7: 09/21/24 08:01 09/21/24 08:01 Labs: Abnormal Lab Results - Last 24 Hours (Table) 09/21/24 Range/Units 19:58 POC Glucose (mg/dL) 155 H (70-110) mg/dL Assessment and Plan Plan: Assessment: 1. End-stage renal disease maintained on hemodialysis on Wednesday schedule via left upper extremity fistula. 2. Malfunctioning AV fistula. Seen by vascular surgery. Status post thrombectomy and balloon angioplasty. Stable unable to access fistula. Sche duled for permacath placement today. 3. Chronic kidney disease mineral bone disease maintained on Renvela. 4. Diabetes mellitus. 5. Hypertension with chronic kidney disease. Plan: Hemodialysis today after permacath placed. Potential discharge after dialysis today.
[2024-09-22 12:12] LABS: Glucose,Whole Blood 100 mg/dL (70-110)
[2024-09-22] MEDS: SODIUM CHLORIDE 0.9% 1,000 ML IV ONE (13:41)
[2024-09-22] MEDS: INSULIN DETEMIR (LEVEMIR) 100 UNIT/ML SYR SQ SCH (14:51)
[2024-09-22] MEDS ORDERED: MIDAZOLAM 2 MG/2 ML VIAL ONE (14:54)
[2024-09-22] MEDS ORDERED: fentaNYL (PF) 50 MCG/ML 2 ML AMP ONE (14:54)
[2024-09-22] MEDS ORDERED: GLYCOPYRROLATE 0.2 MG/ML 2 ML VIAL ONE (14:54)
[2024-09-22] MEDS ORDERED: PROPOFOL 10 MG/ML 20 ML VIAL IV ONE (14:54)
[2024-09-22] MEDS ORDERED: KETAMINE HCL IN 0.9 % NACL 50 MG/5 ML SYRINGE ONE (14:54)
[2024-09-22] MEDS: LIDOCAINE 1% INJ 10MG/ML (20 ML MDV) SQ ONE ×2 (15:12→15:30)
[2024-09-22] MEDS: HEPARIN SODIUM,PORCINE (1 ML) 2,000 UNIT in SODIUM CHLORIDE 0.9% 500 ML 500 ML IRRIGATION ONE (15:17)
--- NOTE | 2024-09-22 15:53 | P.OP ---
Date of Procedure: 09/22/24 Description of Procedure: DATE OF PROCEDURE: 09/22/2024 PREOPERATIVE DIAGNOSIS: Need for dialysis, thrombosed left upper extremity AV fistula PROCEDURE: 1. Ultrasound-guided right internal jugular vein access. 2. Placement of a 23 cm tunneled dialysis catheter with fluoroscopic assistance. PROCEDURE: The patient was brought to the [employer] Operator placed in supine position. The bilateral necks were prepped and draped in usual sterile fashion. A preprocedure timeout was performed, all parties were in agreement. Using ultrasound the right internal jugular was identified. The site overlying the vein was anesthetized with 1% lidocaine plain and an access needle was used to gain access to the internal jugular vein with return of dark venous, nonpulsatile blood. Seldinger technique was used and a wire was placed. There was some area of resistance at the proximal chest however the wire was able to be maneuvered into the inferior vena cava without further incident. Attention was then turned towards the tunnel. The chest wall was anesthetized with 1% lidocaine plain. A small jacob and the skin was made and the previously flushed catheter was tunneled through the anticipated location. This was notably difficult due to his size and thickened skin. Using Seldinger technique and fluoroscopic assistance, the tract was serially dilated over the J-wire. The final tear-away sheath was left in place. The inner cannula and wire were removed. The catheter was placed in the tear-away sheath was removed in standard fashion. The catheter showed good positioning was final resting place in the cavoatrial junction. The catheter aspirated and flushed freely. The incision at the neck was reapproximated with interrupted sutures of 4-0 Vicryl. The catheter was sutured in place with 3-0 nylon. Dressings were placed. The patient was allowed to awaken from anesthesia and transferred to recovery in stable condition having tolerated the procedure well. A post procedure chest x- ray is pending
--- NOTE | 2024-09-22 16:10 | FL ---
EXAMINATION TYPE: FL guidance operating room DATE OF EXAM: 09/22/2024 Comparison: None Clinical History: 54-year-old male hemodialysis catheter placement OR Findings: FL TIME 45.4 SEC DAP [id number] HEMODIALYSIS CATH PLACEMENT 1 image submitted. [facility], , 09/22/2024 4:08 PM
--- NOTE | 2024-09-22 17:01 | XR ---
EXAMINATION TYPE: XR chest 1V portable DATE OF EXAM: 09/22/2024 Comparison: 12/15/2023 Clinical History: 54-year-old male tunneled cath placement Findings: Heart upper limits of normal in size. Mild interstitial prominence. Right-sided double-lumen hemodial ysis catheter with tips at the upper right atrium. No consolidation, pneumothorax, or pleural effusio n. Impression: 1. Right-sided double-lumen hemodialysis catheter with tips at the upper right atrium. 2. Correlate for developing mild pulmonary vascular congestion. [facility], , 09/22/2024 4:59 PM
[2024-09-22 17:31] LABS: Glucose,Whole Blood 85 mg/dL (70-110)
[2024-09-22 21:21] LABS: Glucose,Whole Blood 75 mg/dL (70-110)
--- NOTE | 2024-09-23 01:00 | P.PN ---
Subjective Progress Note Date: 09/22/24 Patient is a 54-year-old male with a past medical history of ESRD on hemodialysis TTS left arm AV fistula, diabetes type 2 insulin-dependent, obstructive sleep apnea, chronic low back pain, diabetic peripheral neuropathy, hypertension, fibromyalgia, anxiety and other medical problems presents to ER due to left arm AV fistula malfunction. Patient states that he went to hemodialysis and found that his left arm AV fistula could not be accessed and states that it came out dark blood. They told him it was more likely clotted. Patient also believes that he felt a thrill yesterday but states that he can palpate currently. Otherwise denying increased left hand swelling. No fever no chills. No complaints of chest pain or shortness of breath. Denied any recent trauma. Laboratory data showed WBC 5.8 hemoglobin 13.3 and platelets 163 Sodium 141 potassium 4.8 chloride 101 bicarb is 28 BUN 61 and creatinine 10.1 and blood sugar 145 magnesium 2.6 liver enzymes not elevated. 09/22/2024 Patient is seen in follow-up today with nephrology and vascular surgery following. Patient is status post positive functionality in the left Av fistula although has clotted is scheduled to undergo chest permacath placement with vascular surgery. Plan will be for dialysis after this and may likely go home and continue on current regimen of Wednesday//Wednesday. Review of systems: Constitutional: No reports of fatigue, fever, or chills Cardiovascular: No reports of chest pain or palpitations Respiratory: No reports of shortness of breath or cough GI: No reports of nausea, vomiting, or diarrhea : No reports of dysuria or retention Neurovascular: No reports of weakness or numbness All medications have been reviewed Physical exam: Patient is lying in the bed comfortably, no acute distress, awake alert and oriented.. Obese HEENT: Normocephalic. Neck is supple. Pupils reactive. Nostrils clear. Oral cavity is moist. Neck reveals no JVD, carotid bruits, or thyromegaly. CHEST EXAMINATION: Trachea is central. Symmetrical expansion. Bibasilar diminished sounds. Lung bryant clear to auscultation and percussion. CARDIAC: Normal S1, S2 with no gallops. No murmurs ABDOMEN: Soft. Obese. Bowel sounds normal. No organomegaly. No abdominal bruits. Extremities: reveal no edema. Left upper extremity AV fistula with no thrill noted. No clubbing or cyanosis Neurologically awake, alert, oriented x3 with well-coordinated movements. No focal deficits noted Skin: No rash or skin lesions. Psychiatric: Cooperative. Non-suicidal Musculoskeletal: No joint swelling or deformity. Normal range of motion. Assessment: Left upper extremity AV fistula malfunction. Status post right chest wall permacath placement with vascular surgery 09/22/2024 ESRD on hemodialysis TTS Diabetes type 2 insulin-dependent and also on degludec Hypertension Diabetic peripheral neuropathy Chronic low back pain Fibromyalgia Obesity with a BMI 39.8 Anxiety DVT prophylaxis with heparin subcu GI prophylaxis Full code Plan: Patient will be continued on telemonitoring. Continue with home blood pressure medications including Coreg and insulin regimen. Titrate dose as needed. Continue pain management and follow-up closely. Vascular surgery and nephrology following and initially left AV fistula was functioning although clotted off and vascular surgery to place a permacath chest wall catheter today and will be continued on Wednesday//Wednesday Per nephrology patient may be dialyzed and discharged home and follow-up with dialysis center outpatient on Wednesday. Awaiting finalized clearance from vascular and patient may require dialysis here in the hospital on Wednesday morning prior to discharge as next dialysis session is on Wednesday Possible discharge planning in the next 24 to 48 hours The impression and plan of care has been dictated by Zora Booth, Nurse Practitioner as directed. Dr. Juanpablo MD I have performed a history and examination and MDM of this patient, discussed the same with the dictator, and agree with the dictator's assessment and plan as written ,documented as a scribe. Based on total visit time, I have performed more than 50% of the visit. Objective - Vital Signs Vital signs: Vital Signs Temp 97.9 F 09/22/24 07:00 Pulse 82 09/22/24 07:00 Resp 15 09/22/24 07:00 BP 144/81 09/22/24 07:00 Pulse Ox 99 09/22/24 07:00 FiO2 Intake & Output 09/21/24 09/22/24 09/22/24 18:59 06:59 18:59 Intake Total 50 0 Balance 50 0 Weight 137 kg Intake: IV 50 Oral 0 Other: Voiding Method Toilet Toilet Toilet # Voids 3 - Labs CBC & Chem 7: 09/21/24 08:01 09/21/24 08:01 Labs: Abnormal Lab Results - Last 24 Hours (Table) 09/21/24 Range/Units 19:58 POC Glucose (mg/dL) 155 H (70-110) mg/dL
[2024-09-23 06:28] LABS: Glucose,Whole Blood 113 mg/dL (70-110)
[2024-09-23] MEDS: HYDROcodone/APAP 5-325MG 1 EACH TAB PO PRN (09:58)
[2024-09-23 12:04] LABS: Glucose,Whole Blood 144 mg/dL (70-110)
--- NOTE | 2024-09-23 12:08 | P.PN ---
Subjective Patient is seen in follow-up for end-stage renal disease. He is maintained on hemodialysis on Wednesday schedule. Permacath placed yesterday and also underwent hemodialysis yesterday without any problems. Sitting up in chair. No active complaints. Vital signs are stable. General: No acute distress. HEENT: Head exam is unremarkable. LUNGS: No audible rhonchi or wheezes. HEART: Rate and Rhythm are regular. ABDOMEN: Nontender. Obese. EXTREMITITES: No edema. Objective - Vital Signs Vital signs: Vital Signs Temp 98.4 F 09/23/24 07:00 Pulse 80 09/23/24 07:00 Resp 16 09/23/24 07:00 BP 126/75 09/23/24 07:00 Pulse Ox 98 09/23/24 07:00 FiO2 Intake & Output 09/22/24 09/23/24 09/23/24 18:59 06:59 18:59 Intake Total 451 400 Output Total 5 4400 Balance 446 -4000 Intake: IV 451 Oral 0 Hemodialysis 400 Output: Hemodialysis 2400 Hemodialysis Net Amount 2000 Estimated Blood Loss 5 Other: Voiding Method Toilet Toilet # Voids 1 - Labs CBC & Chem 7: 09/21/24 08:01 09/21/24 08:01 Labs: Abnormal Lab Results - Last 24 Hours (Table) 09/22/24 09/23/24 09/23/24 Range/Units 11:06 06:27 12:03 POC Glucose (mg/dL) 113 H 144 H (70-110) mg/dL Hemoglobin A1c 6.1 H (<=6.0) % Assessment and Plan Plan: Assessment: 1. End-stage renal disease maintained on hemodialysis on Wednesday schedule via left upper extremity fistula. 2. Malfunctioning AV fistula. Seen by vascular surgery. Status post thromb ectomy and balloon angioplasty. Still unable to access fistula. Underwent permacath placement September 22, 2024. 3. Chronic kidney disease mineral bone disease maintained on Renvela. 4. Diabetes mellitus. 5. Hypertension with chronic kidney disease. Controlled. Plan: Hemodialysis today today. Potential discharge after dialysis today.
[2024-09-23 17:25] LABS: Glucose,Whole Blood 95 mg/dL (70-110)
[2024-09-23 20:19] LABS: Glucose,Whole Blood 143 mg/dL (70-110)
--- NOTE | 2024-09-24 05:43 | P.PN ---
Subjective Progress Note Date: 09/23/24 Patient is a 54-year-old male with a past medical history of ESRD on hemodialysis TTS left arm AV fistula, diabetes type 2 insulin-dependent, obstructive sleep apnea, chronic low back pain, diabetic peripheral neuropathy, hypertension, fibromyalgia, anxiety and other medical problems presents to ER due to left arm AV fistula malfunction. Patient states that he went to hemodialysis and found that his left arm AV fistula could not be accessed and states that it came out dark blood. They told him it was more likely clotted. Patient also believes that he felt a thrill yesterday but states that he can palpate currently. Otherwise denying increased left hand swelling. No fever no chills. No complaints of chest pain or shortness of breath. Denied any recent trauma. Laboratory data showed WBC 5.8 hemoglobin 13.3 and platelets 163 Sodium 141 potassium 4.8 chloride 101 bicarb is 28 BUN 61 and creatinine 10.1 and blood sugar 145 magnesium 2.6 liver enzymes not elevated. 09/22/2024 Patient is seen in follow-up today with nephrology and vascular surgery following. Patient is status post positive functionality in the left Av fistula although has clotted is scheduled to undergo chest permacath placement with vascular surgery. Plan will be for dialysis after this and may likely go home and continue on current regimen of Wednesday//Wednesday. 09/23/2024 Patient is seen in follow-up today status post chest wall permacath placement his left arm fistula has clotted off. Patient maintained on hemodialysis and tolerating although having some nausea and continued pain at the chest wall site. No issues with hemodialysis per nursing staff. Will add Zofran as needed and also something for pain. Patient scheduled to receive hemodialysis again today with nephrology following and will monitor overnight with possible discharge planning in the next 24 hours. Review of systems: Constitutional: No reports of fatigue, fever, or chills Cardiovascular: No reports of chest pain or palpitations Respiratory: No reports of shortness of breath or cough GI: reports of nausea, no vomiting, or diarrhea : No reports of dysuria or retention Neurovascular: No reports of weakness or numbness, reports not feeling well All medications have been reviewed Physical exam: Patient is lying in the bed, awake alert and oriented.. Obese HEENT: Normocephalic. Neck is supple. Pupils reactive. Nostrils clear. Oral cavity is moist. Neck reveals no JVD, carotid bruits, or thyromegaly. CHEST EXAMINATION: Trachea is central. Symmetrical expansion. Bibasilar diminished sounds. Lung bryant clear to auscultation and percussion. Right chest wall permacath placement noted CARDIAC: Normal S1, S2 with no gallops. No murmurs ABDOMEN: Soft. Obese. Bowel sounds normal. No organomegaly. No abdominal bruits. Extremities: reveal no edema. Left upper extremity AV fistula with no thrill noted. No clubbing or cyanosis Neurologically awake, alert, oriented x3 with well-coordinated movements. No focal deficits noted Skin: No rash or skin lesions. Psychiatric: Cooperative. Non-suicidal Musculoskeletal: No joint swelling or deformity. Normal range of motion. Assessment: Left upper extremity AV fistula malfunction. Status post right chest wall permacath placement with vascular surgery 09/22/2024 ESRD on hemodialysis TTS Diabetes type 2 insulin-dependent and also on degludec Hypertension Diabetic peripheral neuropathy Chronic low back pain Fibromyalgia Obesity with a BMI 39.8 Anxiety DVT prophylaxis with heparin subcu GI prophylaxis Full code Plan: Patient will be continued on home blood pressure medications including Coreg and insulin regimen. Titrate dose as needed. Patient reporting pain in the chest wall catheter site although is functioning properly with no issues on dialysis. Patient also having some nausea and will add Zofran. Monitor overnight and discuss possible discharge planning in the next 24 hours. Vascular surgery and nephrology following and initially left AV fistula was functioning although clotted off and vascular surgery has placed a permacath chest wall catheter today and will be continued on Wednesday//Wednesday Per nephrology patient may be be dialyzed and discharged home later today and follow-up with dialysis center outpatient Possible discharge planning in the next 24 to 48 hours The impression and plan of care has been dictated by Zora Booth Nurse Practitioner as directed. Dr. Juanpablo MD I have performed a history and examination and MDM of this patient, discussed the same with the dictator, and agree with the dictator's assessment and plan as written ,documented as a scribe. Based on total visit time, I have performed more than 50% of the visit. Objective - Vital Signs Vital signs: Vital Signs Temp 98.0 F 09/24/24 03:34 Pulse 89 09/24/24 03:34 Resp 17 09/24/24 03:34 BP 132/79 09/24/24 03:34 Pulse Ox 98 09/24/24 03:34 FiO2 Intake & Output 09/23/24 09/23/24 09/24/24 06:59 18:59 06:59 Intake Total 553 486 4648 Output Total 4400 1500 Balance -4000 118 0 Intake: Oral 118 Hemodialysis 400 1500 Output: Hemodialysis 2400 750 Hemodialysis Net Amount 2000 750 Other: Voiding Method Toilet Toilet Toilet # Voids 1 1 1 - Labs CBC & Chem 7: 09/21/24 08:01 09/21/24 08:01 Labs: Abnormal Lab Results - Last 24 Hours (Table) 09/23/24 09/23/24 09/23/24 Range/Units 06:27 12:03 20:18 POC Glucose (mg/dL) 113 H 144 H 143 H (70-110) mg/dL
[2024-09-24 06:01] LABS: Glucose,Whole Blood 90 mg/dL (70-110)
[2024-09-24] MEDS: ONDANSETRON 4 MG/2 ML VIAL IVP PRN (09:44)
[2024-09-24] MEDS: ACETAMINOPHEN TAB 325 MG TAB PO PRN (09:47)
--- NOTE | 2024-09-24 10:38 | P.PN ---
Subjective Patient is seen in follow-up for end-stage renal disease. He is maintained on hemodialysis on Wednesday schedule. Developed vomiting yesterday. Feels better today. Vital signs are stable. General: No acute distress. HEENT: Head exam is unremarkable. LUNGS: No audible rhonchi or wheezes. HEART: Rate and Rhythm are regular. ABDOMEN: Nontender. Obese. EXTREMITITES: No edema. Objective - Vital Signs Vital signs: Vital Signs Temp 98.3 F 09/24/24 07:00 Pulse 82 09/24/24 07:00 Resp 16 09/24/24 07:00 BP 108/73 09/24/24 07:00 Pulse Ox 100 09/24/24 07:00 FiO2 Intake & Output 09/23/24 09/24/24 09/24/24 18:59 06:59 18:59 Intake Total 118 1500 222 Output Total 1500 Balance 118 0 222 Intake: Oral 118 222 Hemodialysis 1500 Output: Hemodialysis 750 Hemodialysis Net Amount 750 Other: Voiding Method Toilet Toilet Toilet # Voids 1 1 - Labs CBC & Chem 7: 09/21/24 08:01 09/21/24 08:01 Labs: Abnormal Lab Results - Last 24 Hours (Table) 09/23/24 09/23/24 Range/Units 12:03 20:18 POC Glucose (mg/dL) 144 H 143 H (70-110) mg/dL Assessment and Plan Plan: Assessment: 1. End-stage renal disease maintained on hemodialysis on Wednesday schedule via left upper extremity fistula. 2. Malfunctioning AV fistula. Seen by vascular surgery. Status post thrombectomy and balloon angioplasty. Still unable to access fistula. U nderwent permacath placement September 22, 2024. 3. Chronic kidney disease mineral bone disease maintained on Renvela. 4. Diabetes mellitus. 5. Hypertension with chronic kidney disease. Controlled. Plan: Hemodialysis Wednesday. Awaits discharge.
[2024-09-24 12:57] LABS: Glucose,Whole Blood 108 mg/dL (70-110)
[2024-09-24] MEDS: FAMOTIDINE 20 MG/2 ML VIAL IV STA (13:11)
[2024-09-24 13:36] LABS: African American GFR (CKD) 6 (>60 ml/min/1.73 sqM); Anion Gap 11 mmol/L; Blood Urea Nitrogen 51 mg/dL (9-20); Calcium 8.3 mg/dL (8.4-10.2); Carbon Dioxide 22 mmol/L (22-30); Chloride 101 mmol/L (98-107); Glucose 109 mg/dL (74-99); Non-African American GFR(CKD) 6 (>60 ml/min/1.73 sqM); Potassium 4.9 mmol/L (3.5-5.1); Sodium 134 mmol/L (137-145)
[2024-09-24] MEDS: SODIUM CHLORIDE 0.9% 500 ML 250 ML IV ONE (14:10)
[2024-09-24 17:23] LABS: Glucose,Whole Blood 103 mg/dL (70-110)
[2024-09-24 22:45] LABS: Glucose,Whole Blood 144 mg/dL (70-110)
[2024-09-25 01:44] LABS: Glucose,Whole Blood 111 mg/dL (70-110)
--- NOTE | 2024-09-25 05:42 | P.PN ---
Subjective Progress Note Date: 09/24/24 Patient is a 54-year-old male with a past medical history of ESRD on hemodialysis TTS left arm AV fistula, diabetes type 2 insulin-dependent, obstructive sleep apnea, chronic low back pain, diabetic peripheral neuropathy, hypertension, fibromyalgia, anxiety and other medical problems presents to ER due to left arm AV fistula malfunction. Patient states that he went to hemodialysis and found that his left arm AV fistula could not be accessed and states that it came out dark blood. They told him it was more likely clotted. Patient also believes that he felt a thrill yesterday but states that he can palpate currently. Otherwise denying increased left hand swelling. No fever no chills. No complaints of chest pain or shortness of breath. Denied any recent trauma. Laboratory data showed WBC 5.8 hemoglobin 13.3 and platelets 163 Sodium 141 potassium 4.8 chloride 101 bicarb is 28 BUN 61 and creatinine 10.1 and blood sugar 145 magnesium 2.6 liver enzymes not elevated. 09/22/2024 Patient is seen in follow-up today with nephrology and vascular surgery following. Patient is status post positive functionality in the left Av fistula although has clotted is scheduled to undergo chest permacath placement with vascular surgery. Plan will be for dialysis after this and may likely go home and continue on current regimen of Wednesday//Wednesday. 09/23/2024 Patient is seen in follow-up today status post chest wall permacath placement his left arm fistula has clotted off. Patient maintained on hemodialysis and tolerating although having some nausea and continued pain at the chest wall site. No issues with hemodialysis per nursing staff. Will add Zofran as needed and also something for pain. Patient scheduled to receive hemodialysis again today with nephrology following and will monitor overnight with possible discharge planning in the next 24 hours. 09/24/2024 Patient is seen and evaluated in follow-up had some nausea and vomiting overnight and continues to have some vomiting this morning although reports to feeling somewhat improved. Will monitor overnight and follow-up with repeat labs and discuss further with nephrology regarding discharge planning. Patient has received a right chest wall permacath with vascular surgery and will continue on Wednesday//Wednesday regimen. Possible discharge planning in the next 24 hours if nausea and vomiting has resolved Review of systems: Constitutional: No reports of fatigue, fever, or chills Cardiovascular: No reports of chest pain or palpitations Respiratory: No reports of shortness of breath or cough GI: reports of nausea, reports vomiting, or diarrhea : No reports of dysuria or retention Neurovascular: No reports of weakness or numbness, reports not feeling well All medications have been reviewed Physical exam: Patient is lying in the bed, awake alert and oriented.. Obese HEENT: Normocephalic. Neck is supple. Pupils reactive. Nostrils clear. Oral cavity is moist. Neck reveals no JVD, carotid bruits, or thyromegaly. CHEST EXAMINATION: Trachea is central. Symmetrical expansion. Bibasilar dim inished sounds. Lung bryant clear to auscultation and percussion. Right chest wall permacath placement noted CARDIAC: Normal S1, S2 with no gallops. No murmurs ABDOMEN: Soft. Obese. Bowel sounds normal. No organomegaly. No abdominal bruits. Extremities: reveal no edema. Left upper extremity AV fistula with no thrill noted. No clubbing or cyanosis Neurologically awake, alert, oriented x3 with well-coordinated movements. No focal deficits noted Skin: No rash or skin lesions. Psychiatric: Cooperative. Non-suicidal Musculoskeletal: No joint swelling or deformity. Normal range of motion. Assessment: Left upper extremity AV fistula malfunction. Status post right chest wall permacath placement with vascular surgery 09/22/2024 ESRD on hemodialysis TTS Diabetes type 2 insulin-dependent and also on degludec Hypertension Diabetic peripheral neuropathy Chronic low back pain Fibromyalgia Obesity with a BMI 39.8 Anxiety DVT prophylaxis with heparin subcu GI prophylaxis Full code Plan: Patient will be continued on home blood pressure medications including Coreg and insulin regimen. Titrate dose as needed. Patient reporting pain in the chest wall catheter site although is functioning properly with no issues on dialysis. Patient also having some nausea now with vomiting and will continue Zofran. Repeat BMP. Monitor overnight and discuss possible discharge planning in the next 24 hours. Vascular surgery and nephrology following and initially left AV fistula was functioning although clotted off and vascular surgery has placed a permacath chest wall catheter today and will be continued on Wednesday//Wednesday Possible discharge planning in the next 24 to 48 hours The impression and plan of care has been dictated by Zora Booth, Nurse Practitioner as directed. Dr. Juanpablo MD I have performed a history and examination and MDM of this patient, discussed the same with the dictator, and agree with the dictator's assessment and plan as written ,documented as a scribe. Based on total visit time, I have performed more than 50% of the visit. Objective - Vital Signs Vital signs: Vital Signs Temp 98.2 F 09/25/24 02:00 Pulse 75 09/25/24 02:00 Resp 18 09/25/24 02:00 BP 130/85 09/25/24 02:00 Pulse Ox 82 L 09/25/24 02:00 FiO2 Intake & Output 09/24/24 09/24/24 09/25/24 06:59 18:59 06:59 Intake Total 1500 222 Output Total 1500 Balance 0 222 Intake: Oral 222 Hemodialysis 1500 Output: Hemodialysis 750 Hemodialysis Net Amount 750 Other: Voiding Method Toilet Toilet Toilet # Voids 1 3 1 - Labs CBC & Chem 7: 09/21/24 08:01 09/24/24 13:07 Labs: Abnormal Lab Results - Last 24 Hours (Table) 09/24/24 09/24/24 09/25/24 Range/Units 13:07 22:44 01:41 Sodium 134 L (137-145) mmol/L BUN 51 H (9-20) mg/dL Creatinine 9.59 H* (0.66-1.25) mg/dL Glucose 109 H (74-99) mg/dL POC Glucose (mg/dL) 144 H 111 H (70-110) mg/dL Calcium 8.3 L (8.4-10.2) mg/dL
[2024-09-25 06:23] LABS: Glucose,Whole Blood 82 mg/dL (70-110)
[2024-09-25 08:01] VITALS: BP 136/81; PULSE 82; RESP 16; TEMP 98.6
--- NOTE | 2024-09-25 09:34 | P.PN ---
Subjective Progress Note Date: 09/25/24 Principal diagnosis: End-stage renal disease with thrombosed graft Seen and examined today as a follow-up. He is status post right IJ tunnel catheter placement. He underwent hemodialysis without any complications. Patient had some nausea and vomiting but other than that tolerated it well. Has some mild tenderness at site. No bleeding. Objective - Vital Signs Vital signs: Vital Signs Temp 98.6 F 09/25/24 07:00 Pulse 82 09/25/24 07:00 Resp 16 09/25/24 07:00 BP 136/81 09/25/24 07:00 Pulse Ox 99 09/25/24 07:00 FiO2 Intake & Output 09/24/24 09/25/24 09/25/24 18:59 06:59 18:59 Intake Total 222 Balance 222 Intake: Oral 222 Other: Voiding Method Toilet Toilet # Voids 3 1 - Exam General appearance: The patient is alert, oriented, appears in no acute distress. HET: Head is normocephalic and atraumatic. Pupils are equal and reactive. Neck: Supple. Chest: Right IJ catheter in place with dressing clean dry and intact. Heart: Regular. Lungs: Equal expansion, normal respiratory effort. Abdomen: Soft, nontender, nondistended. Extremities: Normal skin color and turgor. Neurological: No focal deficits. Strength and sensation are grossly intact. - Labs CBC & Chem 7: 09/21/24 08:01 09/24/24 13:07 Labs: Abnormal Lab Results - Last 24 Hours (Table) 09/24/24 09/24/24 09/25/24 Range/Units 13:07 22:44 01:41 Sodium 134 L (137-145) mmol/L BUN 51 H (9-20) mg/dL Creatinine 9.59 H* (0.66-1.25) mg/dL Glucose 109 H (74-99) mg/dL POC Glucose (mg/dL) 144 H 111 H (70-110) mg/dL Calcium 8.3 L (8.4-10.2) mg/dL Assessment and Plan Assessment: 1. Thrombosed left upper extremity AV fistula status post right IJ tunnel catheter placement 2. End-stage renal disease requiring hemodialysis Plan: 1. Renal/consistent carbohydrate diet 2. Hemodialysis per nephrology 3. Rest of medical management per primary medical team Thank you for this consultation, patient is cleared from vascular surgery for discharge. The impression and plan of care has been dictated as directed. I performed a history and examination of this patient, discussed the same with the dictator. I agree with the dictator's note ,documented as a scribe. Any additional findings or plans will be noted.
[2024-09-25 10:30] LABS: Magnesium 2.5 mg/dL (1.5-2.4)
[2024-09-25 11:29] LABS: BUN/Creat Ratio 5.19 Ratio (12.00-20.00); Calcium 8.7 mg/dL (8.7-10.3); Chloride 96 mmol/L (96-109); Glucose 86 mg/dL (70-110); Potassium 4.5 mmol/L (3.5-5.5); Sodium 138 mmol/L (135-145)
[2024-09-25 11:50] LABS: Glucose,Whole Blood 132 mg/dL (70-110)
--- NOTE | 2024-09-25 21:11 | P.PN ---
Subjective Patient is seen for follow-up for end-stage renal disease. Scheduled for dialysis in a.m. No significant complaints today. Objective - Vital Signs Vital signs: Vital Signs Temp 98.6 F 09/25/24 07:00 Pulse 82 09/25/24 07:00 Resp 16 09/25/24 07:00 BP 136/81 09/25/24 07:00 Pulse Ox 99 09/25/24 07:00 FiO2 Intake & Output 09/25/24 09/25/24 09/26/24 06:59 18:59 06:59 Other: Voiding Method Toilet Toilet # Voids 1 - Exam Patient is awake, comfortable, no acute distress. Examination of the heart S1 and S2 Examination of the lungs bilateral breath sounds are heard Abdomen is soft nontender No significant edema noted in the lower extremities. [employer] exam grossly intact - Labs CBC & Chem 7: 09/21/24 08:01 09/25/24 06:25 Labs: Abnormal Lab Results - Last 24 Hours (Table) 09/24/24 09/25/24 09/25/24 Range/Units 22:44 01:41 06:25 Anion Gap 17.00 H (4.00-12.00) mmol/L BUN 54.0 H (9.0-27.0) mg/dL Creatinine 10.4 A* (0.6-1.5) mg/dL Est GFR (CKD-EPI) 5 L (>=60) BUN/Creatinine Ratio 5.19 L (12.00-20.00) Ratio POC Glucose (mg/dL) 144 H 111 H (70-110) mg/dL Magnesium 2.5 H (1.5-2.4) mg/dL 09/25/24 Range/Units 11:49 Anion Gap (4.00-12.00) mmol/L BUN (9.0-27.0) mg/dL Creatinine (0.6-1.5) mg/dL Est GFR (CKD-EPI) (>=60) BUN/Creatinine Ratio (12.00-20.00) Ratio POC Glucose (mg/dL) 132 H (70-110) mg/dL Magnesium (1.5-2.4) mg/dL Assessment and Plan Assessment: 1. End-stage renal disease maintained on hemodialysis on Wednesday schedule via left upper extremity fistula. 2. Malfunctioning AV fistula. Seen by vascular surgery. Status post thrombectomy and balloon angioplasty. Still unable to access fistula. Underwent permacath placement September 22, 2024. 3. Chronic kidney disease mineral bone disease maintained on Renvela. 4. Diabetes mellitus. 5. Hypertension with chronic kidney disease. Controlled. Plan: Hemodialysis in a.m.
[2024-09-27] MEDS ORDERED: NON FORMULARY DRUG (Dulaglutide [Trulicity] 3 MG/0.5 ML Each) SQ SCH (09:00)
--- NOTE | 2024-09-30 07:26 | P.DS ---
Providers Date of admission: 09/25/24 10:40 Expected date of discharge: 09/25/24 Attending physician: Devan Adler Consults: 09/21/24 08:09 Consult Physician Urgent Consulting Provider: Farnaz Rome Consult Reason/Comments: clotted fistula Do you want consulting provider notified?: Already Contacted 09/21/24 09:07 Consult Physician Urgent Consulting Provider: Lewis Werner Consult Reason/Comments: Dialysis Do you want consulting provider notified?: Yes Primary care physician: Sharri Mckeon Hospital Course: Final diagnosis Left upper extremity AV fistula malfunction. 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 Patient will follow-up with Dr. Gio Adler in the outpatient setting upon discharge. Patient is to continue with hemodialysis as scheduled. Recommend outpatient follow-up with vascular surgery along with GI. Total time taken is greater than 35 minutes. Hospital course This is a 54-year-old male who was recently admitted with AV fistula malfunction being closely monitored. Vascular surgery evaluated the patient initially had the fistula functioning although pressure was applied as there was some oozing and is likely noted to be clotted off. Patient is status post chest wall permacath placement. Hemodialysis has been resumed and tolerating and was held over as patient was having some extreme nausea and generalized unwell feeling. Patient improving tolerating diet and would like to go home. Patient has been cleared by nephrology recommending to continue on Wednesday//Wednesday schedule. Outpatient follow-up with vascular surgery and nephrology as instructed. Please refer to other consultation notes for further HPI currently no reports of chest pain, shortness of breath, or palpitations. Patient is afebrile. No reports of nausea or vomiting and patient is tolerating diet. Patient will be discharged home guarded prognosis. Physical exam: Gen: This is a 54-year-old male who is awake, alert and oriented x 3, well- developed, well-nourished, obese HEENT: Head is atraumatic, normocephalic. Pupils equal, round. Sclerae is anicteric. NECK: Supple. No JVD. No lymphadenopathy. No thyromegaly. LUNGS: Clear to auscultation. No wheezes or rhonchi. No intercostal retractions. HEART: Regular rate and rhythm. No murmur. Right chest wall permacath placement with no draining or bleeding noted ABDOMEN: Soft. Obese bowel sounds are present. No masses. No tenderness. EXTREMITIES: No pedal edema. No calf tenderness. NEUROLOGICAL: Patient is awake, alert and oriented x3. Cranial nerves 2 through 12 are grossly intact. Please refer to medication reconciliation sheet for a list of medications. The impression and plan of care has been dictated by Zora Booth, Nurse Practitioner as directed. Dr. Lee MD I have performed a history and examination and MDM of this patient, discussed the same with the dictator, and agree with the dictator's assessment and plan as written ,documented as a scribe. Based on total visit time, I have performed more than 50% of the visit. Patient Condition at Discharge: Fair Plan - Discharge Summary Discharge Rx Participant: No New Discharge Prescriptions: New Ondansetron Odt [Zofran Odt] 4 mg PO Q8HR PRN #10 tab PRN Reason: Nausea Continue carvediloL [Coreg] 25 mg PO DIRECTED Calcium Acetate [PhosLo] 1,334 mg PO TID-W/MEALS Insulin Glargine,Hum.rec.anlog [Basaglar Kwikpen U-100] 30 unit SQ DAILY prednisoLONE ACETATE 1% OPHTH [Pred Forte 1%] 1 drop RIGHT EYE DAILY Lidocaine-Prilocaine Cream [Emla Cream 2.5%/2.5%] 1 applic TOPICAL DAILY PRN PRN Reason: PORT ACCESS Famotidine [Pepcid] 20 mg PO DAILY Sevelamer [Renvela] 3,200 mg PO TID-W/MEALS Insulin Aspart [NovoLOG Flexpen] See Protocol SQ TID-W/MEALS PRN PRN Reason: high blood sugar Dulaglutide [Trulicity] 3 mg SQ WE Insulin Aspart [NovoLOG Flexpen] 3 units SQ TID-W/MEALS carvediloL [Coreg] 6.25 mg PO DIRECTED Folic Acid/Vit B Complex and C [Nephro-Lori Tablet] 0.8 mg PO DAILY Discharge Medication List carvediloL [Coreg] 25 mg PO DIRECTED 06/27/20 [History] Calcium Acetate [PhosLo] 1,334 mg PO TID-W/MEALS 03/01/21 [History] Insulin Glargine,Hum.rec.anlog [Basaglar Kwikpen U-100] 30 unit SQ DAILY 10/28/21 [History] Insulin Aspart [NovoLOG Flexpen] 3 units SQ TID-W/MEALS 07/13/22 [History] prednisoLONE ACETATE 1% OPHTH [Pred Forte 1%] 1 drop RIGHT EYE DAILY 09/30/22 [History] Famotidine [Pepcid] 20 mg PO DAILY 07/01/23 [History] Lidocaine-Prilocaine Cream [Emla Cream 2.5%/2.5%] 1 applic TOPICAL DAILY PRN 07/01/23 [History] Sevelamer [Renvela] 3,200 mg PO TID-W/MEALS 07/01/23 [History] Dulaglutide [Trulicity] 3 mg SQ WE 09/21/24 [History] Folic Acid/Vit B Complex and C [Nephro-Lori Tablet] 0.8 mg PO DAILY 09/21/24 [History] Insulin Aspart [NovoLOG Flexpen] See Protocol SQ TID-W/MEALS PRN 09/21/24 [History] carvediloL [Coreg] 6.25 mg PO DIRECTED 09/21/24 [History] Ondansetron Odt [Zofran Odt] 4 mg PO Q8HR PRN #10 tab 09/25/24 [Rx] Follow up Appointment(s)/Referral(s): Sharri Mckeon MD [Primary Care Provider] - 1-2 days Lewis Werner DO [STAFF PHYSICIAN] - 1 Week Activity/Diet/Wound Care/Special Instructions: Activity limited until follow-up Follow-up with your scheduled dialysis with your next session being tomorrow and continue Wednesday//Wednesday Follow-up primary care provider on discharge Follow-up nephrology outpatient this week Discharge Disposition: HOME SELF-CARE
== END 2024-09-25 14:59 | disposition home or self-care (01) | DRG 252 ==
LOC: EC 07:39 → 6NMEDSUR 09:26 → OBSVTOIN 09-25 10:40
PROVIDERS: ADMIT Hospitalist; ATTEND Hospitalist
PROC: 03C83ZZ Extirpation of Matter from Left Brachial Artery, Percutaneous Approach (ICD-10-PCS; principal; 2024-09-21 08:30)
PROC: 03WY3JZ Revision of Synthetic Substitute in Upper Artery, Percutaneous Approach (ICD-10-PCS; principal; 2024-09-21 08:30)
PROC: 5A1D70Z Performance of Urinary Filtration, Intermittent, Less than 6 Hours Per Day (ICD-10-PCS; 2024-09-22)
PROC: B543ZZA Ultrasonography of Right Jugular Veins, Guidance (ICD-10-PCS; 2024-09-22)
PROC: 0JH63XZ Insertion of Tunneled Vascular Access Device into Chest Subcutaneous Tissue and Fascia, Percutaneous Approach (ICD-10-PCS; 2024-09-22)
PROC: 02HV33Z Insertion of Infusion Device into Superior Vena Cava, Percutaneous Approach (ICD-10-PCS; 2024-09-22)
DX: T82.868A Thrombosis due to vascular prosthetic devices, implants and grafts, initial encounter (principal); N18.6 End stage renal disease; T82.510A Breakdown (mechanical) of surgically created arteriovenous fistula, initial encounter; I12.0 Hypertensive chronic kidney disease with stage 5 chronic kidney disease or end stage renal disease; Y71.2 Prosthetic and other implants, materials and accessory cardiovascular devices associated with adverse incidents; M54.50 Low back pain, unspecified; E66.9 Obesity, unspecified; E11.42 Type 2 diabetes mellitus with diabetic polyneuropathy; Y83.2 Surgical operation with anastomosis, bypass or graft as the cause of abnormal reaction of the patient, or of later complication, without mention of misadventure at the time of the procedure; E83.9 Disorder of mineral metabolism, unspecified; M79.7 Fibromyalgia; E11.22 Type 2 diabetes mellitus with diabetic chronic kidney disease; H40.9 Unspecified glaucoma; M21.372 Foot drop, left foot; G47.33 Obstructive sleep apnea (adult) (pediatric); G89.29 Other chronic pain; F41.9 Anxiety disorder, unspecified; Z68.39 Body mass index [BMI] 39.0-39.9, adult; Z99.2 Dependence on renal dialysis; Z79.4 Long term (current) use of insulin; Z79.899 Other long term (current) drug therapy; Z86.711 Personal history of pulmonary embolism; Z87.01 Personal history of pneumonia (recurrent)
CPT/HCPCS: 36415; 36905; 71045; 76937; 80048; 80053; 83036; 83735; 84100; 85025; 85610; 85730; 90935; 96374; 99285

== ENCOUNTER 2024-09-21 09:26 | Observation (INO) | payer MEDICARE, OTHER | END 2024-09-21 23:00 | disposition other institution (70) | LOC: 6NMEDSUR 09:26 | PROVIDERS: ADMIT Emergency Medicine; ATTEND Hospitalist | DX: T82.510A Breakdown (mechanical) of surgically created arteriovenous fistula, initial encounter (principal); Y83.2 Surgical operation with anastomosis, bypass or graft as the cause of abnormal reaction of the patient, or of later complication, without mention of misadventure at the time of the procedure; I12.0 Hypertensive chronic kidney disease with stage 5 chronic kidney disease or end stage renal disease; E11.22 Type 2 diabetes mellitus with diabetic chronic kidney disease; N18.6 End stage renal disease; E11.42 Type 2 diabetes mellitus with diabetic polyneuropathy; G47.33 Obstructive sleep apnea (adult) (pediatric); G89.29 Other chronic pain; M54.50 Low back pain, unspecified; M79.7 Fibromyalgia; F41.9 Anxiety disorder, unspecified; H40.9 Unspecified glaucoma; Z79.899 Other long term (current) drug therapy; Z79.4 Long term (current) use of insulin; Z82.49 Family history of ischemic heart disease and other diseases of the circulatory system; Z99.2 Dependence on renal dialysis; Z86.711 Personal history of pulmonary embolism; Z87.01 Personal history of pneumonia (recurrent) | CPT/HCPCS: 96375; 96374; 99285; 36415; 76937; 36905; 80053; 83735; 84100; 85025; 85610; 85730; G0378; C1894; C1769 ×3; C1725; C1757; J2250; J1644; J1940; J2003; J3010; J2997; J1171; Q9967 ==

== ENCOUNTER 2024-10-11 11:14 | Emergency (ER) | payer MEDICARE, OTHER ==
[2024-10-11] MEDS: ASPIRIN 81 MG PO STA (12:06)
[2024-10-11] MEDS: MORPHINE SULFATE 4 MG/ML SYRINGE IVP STA (12:07)
[2024-10-11] MEDS: LIDOCAINE 4% PATCH TOPICAL STA (12:09)
[2024-10-11] MEDS: HYDROmorphone 0.5 MG/0.5 ML SYRINGE IVP STA (12:21)
[2024-10-11 12:46] LABS: Basophils % (A) 0 %; Eosinophils # (A) 0.1 k/uL (0-0.7); Eosinophils % (A) 1 %; HCT 36.1 % (39.0-53.0); HGB 12.1 gm/dL (13.0-17.5); Lymphocytes # (A) 2.8 k/uL (1.0-4.8); Lymphocytes % (A) 36 %; MCH 29.8 pg (25.0-35.0); MCHC 33.6 g/dL (31.0-37.0); MCV 88.7 fL (80.0-100.0); Mean Platelet Volume 8.6; Monocytes # (A) 0.3 k/uL (0-1.0); Monocytes % (A) 4 %; Neutrophils # (A) 4.5 k/uL (1.3-7.7); Neutrophils % (A) 57 %; Platelet Count 170 k/uL (150-450); RBC 4.08 m/uL (4.30-5.90); RDW 13.3 % (11.5-15.5); WBC 7.9 k/uL (3.8-10.6)
[2024-10-11 13:01] LABS: ALT 12 U/L (4-49); AST 17 U/L (17-59); African American GFR (CKD) 7 (>60 ml/min/1.73 sqM); Alkaline Phosphatase 91 U/L (38-126); Anion Gap 8 mmol/L; Blood Urea Nitrogen 46 mg/dL (9-20); Calcium 8.9 mg/dL (8.4-10.2); Carbon Dioxide 27 mmol/L (22-30); Chloride 102 mmol/L (98-107); Glucose 108 mg/dL (74-99); Lipase 288 U/L (23-300); Magnesium 2.1 mg/dL (1.6-2.3); Non-African American GFR(CKD) 6 (>60 ml/min/1.73 sqM); Potassium 5.3 mmol/L (3.5-5.1); Sodium 137 mmol/L (137-145); Total Bilirubin 0.8 mg/dL (0.2-1.3); Total Protein 7.1 g/dL (6.3-8.2)
[2024-10-11 13:08] LABS: Partial Thromboplastin Time 27.4 sec (22.0-30.0); Prothrombin Time 10.9 sec (10.0-12.5)
--- NOTE | 2024-10-11 13:34 | XR ---
EXAMINATION TYPE: XR ribs RT w pa chest xray DATE OF EXAM: 10/11/2024 12:46 PM COMPARISON: 09/22/2024 CLINICAL INDICATION: Male, 54 years old with history of rib pain; TECHNIQUE: XR ribs RT w pa chest xray; Frontal and oblique views of the ribs with frontal chest radio graph. FINDINGS: The ribs have a normal appearance. No evidence of fracture. Overall, the lungs are clear. The cardiac silhouette is normal in size. The remaining osseous structures are intact. Right centra l venous catheter with tip appropriately placed at the superior cavoatrial junction. IMPRESSION: No acute osseous pathology. [facility], , 10/11/2024 1:32 PM
[2024-10-11] MEDS: ONDANSETRON 4 MG/2 ML VIAL IVP STA (13:48)
--- NOTE | 2024-10-11 14:26 | ED ---
General Adult HPI - General Source: patient, RN notes reviewed, old records reviewed Mode of arrival: wheelchair Limitations: no limitations <Alex Gonzalez - Last Filed: 10/11/24 14:29> <Heena Carbajal - Last Filed: 10/26/24 01:08> - General Chief complaint: Chest Pain Stated complaint: chest pain Time Seen by Provider: 10/11/24 11:38 - History of Present Illness Initial comments: Patient is a 54-year-old male who presents emergency department complaining of right-sided chest pain. States he had a syncopal episode yesterday but did not injure himself. He has a history of diabetes, dialysis, fibromyalgia. Denies any shortness of breath. States the pain is located in the right rib and radiat es around that rib towards his back. No obvious injuries. Worse with movement and with palpation of that rib. No other acute complaints at this time. Has not missed any rounds of dialysis, having last received it yesterday. Presents over concern further with chest wall pain. No cardiac history. No CAD. No cardiac stents. (Alex Gonzalez) - Related Data Home Medications Medication Instructions Recorded Confirmed carvediloL [Coreg] 25 mg PO BID PRN 06/27/20 10/12/24 Calcium Acetate [PhosLo] 1,334 mg PO TID-W/MEALS 03/01/21 10/12/24 Insulin Aspart [NovoLOG Flexpen] 3 units SQ TID-W/MEALS 07/13/22 10/12/24 prednisoLONE ACETATE 1% OPHTH 1 drop RIGHT EYE DAILY 09/30/22 10/12/24 [Pred Forte 1%] Famotidine [Pepcid] 20 mg PO DAILY 07/01/23 10/12/24 Lidocaine-Prilocaine Cream [Emla 1 applic TOPICAL DAILY PRN 07/01/23 10/12/24 Cream 2.5%/2.5%] Sevelamer [Renvela] 3,200 mg PO TID-W/MEALS 07/01/23 10/12/24 Dulaglutide [Trulicity] 3 mg SQ WE 09/21/24 10/12/24 Folic Acid/Vit B Complex and C 0.8 mg PO DAILY 09/21/24 10/12/24 [Nephro-Lori Tablet] Insulin Aspart [NovoLOG Flexpen] See Protocol SQ TID-W/MEALS PRN 09/21/24 10/12/24 carvediloL [Coreg] 6.25 mg PO BID PRN 09/21/24 10/12/24 Lactulose 10 gm PO DAILY PRN 10/11/24 10/12/24 Omeprazole [PriLOSEC] 20 mg PO DAILY 10/12/24 10/12/24 Previous Rx's Medication Instructions Recorded Ondansetron Odt [Zofran ODT] 4 mg PO Q8HR PRN #10 tab 09/25/24 HYDROcodone/APAP 5-325MG [[place] 1 tab PO Q6HR PRN 3 Days #12 tab 10/11/24 5-325] Lidocaine 5% Patch [Lidoderm 5% 1 patch TOPICAL DAILY #30 patch 10/11/24 Patch] Acetaminophen Tab [Tylenol] 650 mg PO Q6HR PRN tab 10/16/24 Amoxic-Pot Clav 500-125 mg 1 tab PO Q12HR 5 Days #10 tab 10/16/24 [Augmentin 500-125 mg] Insulin Glargine,Hum.rec.anlog 30 unit SQ BID 30 Days #5 each 10/16/24 [Basaglar Kwikpen U-100] Lactulose [Cephulac] 10 gm PO TID PRN #360 ml 10/16/24 amLODIPine [Norvasc] 5 mg PO DAILY #30 tab 10/16/24 hydrALAZINE HCL [Apresoline] 25 mg PO QID PRN #60 tab 10/16/24 Allergies Allergy/AdvReac Type Severity Reaction Status Date / Time peanut Allergy Anaphylaxis Verified 10/12/24 11:51 Review of Systems ROS Other: All systems not noted in ROS Statement are negative. <Alex Gonzalez - Last Filed: 10/11/24 14:29> ROS Other: All systems not noted in ROS Statement are negative. <Heena Carbajal - Last Filed: 10/26/24 01:08> ROS Statement: Those systems with pertinent positive or pertinent negative responses have been documented in the HPI. Review of Systems: CONST: Denies fever EYES: Denies blurry vision ENT: Denies nasal congestion C/V: Endorses right sided rib pain RESP: Denies shortness of breath GI: Denies abdominal pain : Denies dysuria SKIN: Denies rash. MSK: Denies joint pain. NEURO: Denies headache (Alex Gonzalez) Past Medical History Past Medical History: Diabetes Mellitus, Dialysis, Eye Disorder, Fibromyalgia, Hypertension, Pneumonia, Pulmonary Embolus (PE), Renal Disease, Sleep Apnea/CPAP/BIPAP Additional Past Medical History / Comment(s): IDDM type II, neuropathy bilateral feet, chronic renal failure, anemia, chronic lower back and shoulders pain, herniated lumbar disk, glaucoma R eye, carpal tunnel syndrome bilaterally, bronchitis, PAULA with CPAP. Left drop foot, fistula left upper arm, hemodialysis ,, History of Any Multi-Drug Resistant Organisms: MRSA Date of last positivie culture/infection: 11/21/12 MDRO Source:: lower back Past Surgical History: Orthopedic Surgery Additional Past Surgical History / Comment(s): Incision and drainage back and R groin r/t abscesses removed, bilateral eye surgery for retinal repair, R eye surgery for glaucoma, fistula-left upper arm, cystoscopy with biopsy Past Anesthesia/Blood Transfusion Reactions: Postoperative Nausea & Vomiting (PONV) Additional Past Anesthesia/Blood Transfusion Reaction / Comment(s): pt stated has recieved blood transfusions-no known reaction. Past Psychological History: Anxiety Smoking Status: Never smoker Past Alcohol Use History: None Reported Past Drug Use History: None Reported - Past Family History Brother(s) Family Medical History: Cancer, Deep Vein Thrombosis (DVT) Additional Family Medical History / Comment(s): colon Father Family Medical History: Cancer Additional Family Medical History / Comment(s): Bladder cancer in father. Mother Additional Family Medical History / Comment(s): Mother of brain aneurysm <Alex Gonzalez - Last Filed: 10/11/24 14:29> General Exam Limitations: no limitations <Alex Gonzalez - Last Filed: 10/11/24 14:29> - General Exam Comments Initial Comments: General: Appears in no acute distress. HEAD: Normal with no signs of head trauma. EYES: PERRLA, EOMI, conjunctiva normal, no discharge. ENT: Hearing grossly intact, normal oropharynx. RESPIRATORY: Clear breath sounds bilaterally. No wheezes, rales, or rhonchi. C/V: Regular rate and rhythm. S1 and S2 auscultated, no edema, peripheral pulses 2+ and intact throughout. Right chest permacath in place. ABD: Abd is soft, nontender, nondistended EXT: Normal range of motion, no obvious deformity. Tenderness to palpation along the right mid ribs with radiation along the rib itself as I palpate along its length going in the axillary space and around to the back. Seems to be chest wall/musculoskeletal pain. No obvious step-offs or deformities appreciated the ribs. SKIN: No rashes or lesions observed on exposed skin. NEURO: Alert and oriented x 4. (Alex Gonzalez) Course Vital Signs 10/11/24 10/11/24 10/11/24 11:26 11:44 12:24 Temperature 98.4 F Pulse Rate 90 96 92 Respiratory 26 H 20 20 Rate Blood Pressure 147/90 133/123 116/68 O2 Sat by Pulse 100 94 L 97 Oximetry 10/11/24 10/11/24 10/11/24 12:57 14:04 15:05 Temperature Pulse Rate 91 90 83 Respiratory 18 16 18 Rate Blood Pressure 116/65 110/58 104/62 O2 Sat by Pulse 95 97 96 Oximetry 10/11/24 10/11/24 17:02 17:40 Temperature 98.3 F Pulse Rate 81 Respiratory 17 Rate Blood Pressure 115/68 O2 Sat by Pulse 99 Oximetry Medical Decision Making - Lab Data Result diagrams: 10/11/24 11:57 10/11/24 11:57 - EKG Data -: EKG Interpreted by Nd <Alex Gonzalez - Last Filed: 10/11/24 14:29> - Lab Data Result diagrams: 10/11/24 11:57 10/11/24 11:57 <Heena Carbajal - Last Filed: 10/26/24 01:08> - Medical Decision Making Was pt. sent in by a medical professional or institution (, PA, DRUPAL PHP DEVELOPER, urgent care, hospital, or [facility]...) When possible be specific @ -No Did you speak to anyone other than the patient for history (EMS, parent, family, police, friend...)? What history was obtained from this source @ -No Did you review nursing and triage notes (agree or disagree)? Why? @ -I reviewed and agree with nursing and triage notes Were old charts reviewed (outside hosp., previous admission, EMS record, old EKG, old radiological studies, urgent care reports/EKG's, [facility] records)? Report findings @ -Reviewed prior EKG from June 2023 with no obvious acute findings. No significant acute changes on today's EKG. Differential Diagnosis (chest pain, altered mental status, abdominal pain women, abdominal pain men, vaginal bleeding, weakness, fever, dyspnea, syncope, headache, dizziness, GI bleed, back pain, seizure, CVA, palpatations, mental health, musculoskeletal)? @ -Differential Chest Pain: Stable Angina, Unstable Angina, STEMI, NSTEMI Aortic Dissection, Pneumothorax, Musculoskeletal, Esophageal Spasm GERD, Cholecystitis, Pancreatitis, Zoster, this is not meant to be an all-inclusive list. EKG interpreted by me (3pts min.). @ -As above X-rays interpreted by me (1pt min.). @ -Chest x-ray reveals no obvious acute cardiopulmonary process. No obvious rib injury. CT interpreted by me (1pt min.). @ -None done U/S interpreted by me (1pt. min.). @ -None done What testing was considered but not performed or refused? (CT, X-rays, U/S, labs)? Why? @ -None What meds were considered but not given or refused? Why? @ -None Did you discuss the management of the patient with other professionals (professionals i.e. , PA, DRUPAL PHP DEVELOPER, lab, RT, psych nurse, social services technician, ham stripper, teacher, chief marketing officer, welfare case worker)? Give summary @ -No Was smoking cessation discussed for >3mins.? @ -No Was critical care preformed (if so, how long)? @ -No Were there social determinants of health that impacted care today? How? (Homelessness, low income, unemployed, alcoholism, drug addiction, transportation, low edu. Level, literacy, decrease access to med. care, long term, rehab)? @ -No Was there de-escalation of care discussed even if they declined (Discuss DNR or withdrawal of care, Hospice)? DNR status @ -No What co-morbidities impacted this encounter? (DM, HTN, Smoking, COPD, CAD, Cancer, CVA, ARF, Chemo, Hep., AIDS, mental health diagnosis, sleep apnea, morbid obesity)? @ -None Was patient admitted / discharged? Hospital course, mention meds given and route, prescriptions, significant lab abnormalities, going to OR and other pertinent info. @ -Patient presents with chest wall pain. Seems to be musculoskeletal chest wall pain. Patient is on chronic pain meds at home as well. He will be administered IV analgesia medications. Symptoms have been ongoing since yeste rday. We will obtain cardiac workup. He was in agreement this plan. Vitals are within acceptable limits. EKG shows no signs of acute ischemia. Repeat EKG shows no dynamic changes. Labs remarkable for elevated BUN and creatinine in the setting of ESRD. Labs otherwise unremarkable including troponin that is within acceptable limits. Chest x-ray unremarkable. On reevaluation following IV Dilaudid which the patient asked for after IV morphine did not fully improve his pain, he is feeling improved. Discussed with the patient that I would like to obtain a second 3-hour troponin but otherwise I believe it would be safe for him to be discharged home and he was in agreement this plan. Patient signed out to [facility] emergency department physician Dr. Carbajal pending results of repeat troponin. Undiagnosed new problem with uncertain prognosis? @ -No Drug Therapy requiring intensive monitoring for toxicity (Heparin, Nitro, Insulin, Cardizem)? @ -No Were any procedures done? @ -No Diagnosis/symptom? @ -Chest wall pain in the setting of chronic pain Acute, or Chronic, or Acute on Chronic? @ -Acute on chronic Uncomplicated (without systemic symptoms) or Complicated (systemic symptoms)? @ -uncomplicated Side effects of treatment? @ -No Exacerbation, Progression, or Severe Exacerbation? @ -No Poses a threat to life or bodily function? How? (Chest pain, [place], [place], pneumonia, PE, COPD, DKA, ARF, appy, cholecystitis, CVA, Diverticulitis, Homicidal, Suicidal, threat to staff... and all critical care pts) @ -Unlikely (Alex Gonzalez) Was patient admitted / discharged? Hospital course, mention meds given and route, prescriptions, significant lab abnormalities, going to OR and other pertinent info. @ -Patient signed out to me pending second troponin. Second troponin does return and is negative. Results are discussed with the patient. He will be discharged home. Instructed to follow-up with his primary care doctor in 2 to 4 days. Return for any new or worsening symptoms. Patient agreeable plan was discharged home in stable condition Undiagnosed new problem with uncertain prognosis? @ -No Drug Therapy requiring intensive monitoring for toxicity (Heparin, Nitro, Insulin, Cardizem)? @ -No Were any procedures done? @ -No Diagnosis/symptom? @ -Acute atypical chest pain Acute, or Chronic, or Acute on Chronic? @ -Acute Uncomplicated (without systemic symptoms) or Complicated (systemic symptoms)? @ -Complicated Side effects of treatment? @ -No Exacerbation, Progression, or Severe Exacerbation? @ -No Poses a threat to life or bodily function? How? (Chest pain, [place], [place], pneumonia, PE, COPD, DKA, ARF, appy, cholecystitis, CVA, Diverticulitis, Homicidal, Suicidal, threat to staff... and all critical care pts) @ -No (Heena Carbajal) - Lab Data Lab Results 10/11/24 10/11/24 10/11/24 Range/Units 11:57 11:57 11:57 WBC 7.9 (3.8-10.6) k/uL RBC 4.08 L (4.30-5.90) m/uL Hgb 12.1 L (13.0-17.5) gm/dL Hct 36.1 L (39.0-53.0) % MCV 88.7 (80.0-100.0) fL MCH 29.8 (25.0-35.0) pg MCHC 33.6 (31.0-37.0) g/dL RDW 13.3 (11.5-15.5) % Plt Count 170 (150-450) k/uL MPV 8.6 Neutrophils % 57 % Lymphocytes % 36 % Monocytes % 4 % Eosinophils % 1 % Basophils % 0 % Neutrophils # 4.5 (1.3-7.7) k/uL Lymphocytes # 2.8 (1.0-4.8) k/uL Monocytes # 0.3 (0-1.0) k/uL Eosinophils # 0.1 (0-0.7) k/uL Basophils # 0.0 (0-0.2) k/uL PT 10.9 (10.0-12.5) sec INR 1.0 (<1.2) APTT 27.4 (22.0-30.0) sec Sodium 137 (137-145) mmol/L Potassium 5.3 H (3.5-5.1) mmol/L Chloride 102 (98-107) mmol/L Carbon Dioxide 27 (22-30) mmol/L Anion Gap 8 mmol/L BUN 46 H (9-20) mg/dL Creatinine 8.96 H* (0.66-1.25) mg/dL Est GFR (CKD-EPI)AfAm 7 (>60 ml/min/1.73 sqM) Est GFR (CKD-EPI)NonAf 6 (>60 ml/min/1.73 sqM) Glucose 108 H (74-99) mg/dL Calcium 8.9 (8.4-10.2) mg/dL Magnesium 2.1 (1.6-2.3) mg/dL Total Bilirubin 0.8 (0.2-1.3) mg/dL AST 17 (17-59) U/L ALT 12 (4-49) U/L Alkaline Phosphatase 91 (38-126) U/L Troponin I (0.000-0.034) ng/mL Total Protein 7.1 (6.3-8.2) g/dL Albumin 4.0 (3.5-5.0) g/dL Lipase 288 (23-300) U/L 10/11/24 10/11/24 Range/Units 11:57 16:08 WBC (3.8-10.6) k/uL RBC (4.30-5.90) m/uL Hgb (13.0-17.5) gm/dL Hct (39.0-53.0) % MCV (80.0-100.0) fL MCH (25.0-35.0) pg MCHC (31.0-37.0) g/dL RDW (11.5-15.5) % Plt Count (150-450) k/uL MPV Neutrophils % % Lymphocytes % % Monocytes % % Eosinophils % % Basophils % % Neutrophils # (1.3-7.7) k/uL Lymphocytes # (1.0-4.8) k/uL Monocytes # (0-1.0) k/uL Eosinophils # (0-0.7) k/uL Basophils # (0-0.2) k/uL PT (10.0-12.5) sec INR (<1.2) APTT (22.0-30.0) sec Sodium (137-145) mmol/L Potassium (3.5-5.1) mmol/L Chloride (98-107) mmol/L Carbon Dioxide (22-30) mmol/L Anion Gap mmol/L BUN (9-20) mg/dL Creatinine (0.66-1.25) mg/dL Est GFR (CKD-EPI)AfAm (>60 ml/min/1.73 sqM) Est GFR (CKD-EPI)NonAf (>60 ml/min/1.73 sqM) Glucose (74-99) mg/dL Calcium (8.4-10.2) mg/dL Magnesium (1.6-2.3) mg/dL Total Bilirubin (0.2-1.3) mg/dL AST (17-59) U/L ALT (4-49) U/L Alkaline Phosphatase (38-126) U/L Troponin I 0.015 <0.012 (0.000-0.034) ng/mL Total Protein (6.3-8.2) g/dL Albumin (3.5-5.0) g/dL Lipase (23-300) U/L - EKG Data EKG Comments: 12-lead Electrocardiogram Interpretation Note EKG was reviewed and interpreted by myself. 12-lead ECG performed at 1137 is interpreted by me as revealing normal sinus rhythm at a rate of 91 beats per minute. [place] is normal. QRS durations 80 ms, QTc is 404 ms.. There were no ST or T wave abnormalities to suggest myocardial ischemia or injury. R wave progression across the precordium was satisfactory. By my interpretation this EKG is non-diagnostic for acute ischemia. Baseline artifact is present in the precordial leads making them difficult for interpretation. 12-lead Electrocardiogram Interpretation Note EKG was reviewed and interpreted by myself. 12-lead ECG performed at 1401 is interpreted by me as revealing normal sinus rhythm at a rate of 90 beats per minute. [place] is normal. CO interval is 176 ms, QRS durations 83 ms, QTc is 421 ms.. There were no ST or T wave abnormalities to suggest myocardial ischemia or injury. R wave progression across the precordium was satisfactory. By my interpretation this EKG is non-diagnostic for acute ischemia. (Alex Gonzalez) Disposition <Alex Gonzalez - Last Filed: 10/11/24 14:29> Is patient prescribed a controlled substance at d/c from ED?: Yes When asked, does pt state using other controlled substances?: No If prescribed controlled substance>3 days was MAPS reviewed?: Prescribed <3 Days Time of Disposition: 17:02 <Heena Carbajal - Last Filed: 10/26/24 01:08> Clinical Impression: Atypical chest pain Disposition: HOME SELF-CARE Condition: Stable Instructions (If sedation given, give patient instructions): Chest Pain (ED) Additional Instructions: Please follow up with your PCP in 2-4 days for re-evalation of your symptoms. Return for any new or worsening symptoms. Prescriptions: Lidocaine 5% Patch [Lidoderm 5% Patch] 1 patch TOPICAL DAILY #30 patch HYDROcodone/APAP 5-325MG [[place] 5-325] 1 tab PO Q6HR PRN 3 Days #12 tab PRN Reason: Severe Breakthrough Pain Referrals: Sharri Mckeon MD [Primary Care Provider] - 1-2 days
[2024-10-11 17:06] VITALS: BP 115/68; PULSE 81; RESP 17
[2024-10-11 17:53] VITALS: TEMP 98.3
== END 2024-10-11 17:42 | disposition home or self-care (01) ==
LOC: EC 11:14
DX: R07.89 Other chest pain (principal); E11.22 Type 2 diabetes mellitus with diabetic chronic kidney disease; N18.6 End stage renal disease; Z99.2 Dependence on renal dialysis; Z91.010 Allergy to peanuts
CPT/HCPCS: 36415; 93005; 80053; 83690; 83735; 84484; 85025; 85610; 85730; 71101; 99285; 96374; 96375 ×2; J2270; J2405; J1171

== ENCOUNTER 2024-10-12 07:50 | Inpatient (IN) | payer MEDICARE, OTHER ==
--- NOTE | 2024-10-12 08:21 | ED ---
Recheck HPI - General Chief Complaint: Recheck/Abnormal Lab/Rx Stated Complaint: R rib pain Time Seen by Provider: 10/12/24 07:55 Source: patient, EMS, RN notes reviewed Mode of arrival: EMS Limitations: no limitations - History of Present Illness Initial Comments: This is a 54-year-old male who presents to the emergency department for right- sided rib pain. Patient was evaluated here yesterday for right sided rib pain. States that his workup was unremarkable and he was discharged home. He had a syncopal episode 2 days ago, but does not recall injuring himself. States that his pain is not controllable. Pain is worse with any kind of movement and he is struggling to take a deep breath. He is on dialysis Wednesday, , and Wednesday. He presents from the dialysis center today, but did not end up having the dialysis. He did receive it on Wednesday. - Related Data Home Medications Medication Instructions Recorded Confirmed carvediloL [Coreg] 25 mg PO BID PRN 06/27/20 10/12/24 Calcium Acetate [PhosLo] 1,334 mg PO TID-W/MEALS 03/01/21 10/12/24 Insulin Glargine,Hum.rec.anlog 30 unit SQ DAILY 10/28/21 10/12/24 [Basaglar Kwikpen U-100] Insulin Aspart [NovoLOG Flexpen] 3 units SQ TID-W/MEALS 07/13/22 10/12/24 prednisoLONE ACETATE 1% OPHTH 1 drop RIGHT EYE DAILY 09/30/22 10/12/24 [Pred Forte 1%] Famotidine [Pepcid] 20 mg PO DAILY 07/01/23 10/12/24 Lidocaine-Prilocaine Cream [Emla 1 applic TOPICAL DAILY PRN 07/01/23 10/12/24 Cream 2.5%/2.5%] Sevelamer [Renvela] 3,200 mg PO TID-W/MEALS 07/01/23 10/12/24 Dulaglutide [Trulicity] 3 mg SQ WE 09/21/24 10/12/24 Folic Acid/Vit B Complex and C 0.8 mg PO DAILY 09/21/24 10/12/24 [Nephro-Lori Tablet] Insulin Aspart [NovoLOG Flexpen] See Protocol SQ TID-W/MEALS PRN 09/21/24 10/12/24 carvediloL [Coreg] 6.25 mg PO BID PRN 09/21/24 10/12/24 Lactulose 10 gm PO DAILY PRN 10/11/24 10/12/24 Omeprazole [PriLOSEC] 20 mg PO DAILY 10/12/24 10/12/24 Previous Rx's Medication Instructions Recorded Ondansetron Odt [Zofran Odt] 4 mg PO Q8HR PRN #10 tab 09/25/24 HYDROcodone/APAP 5-325MG [[place] 1 tab PO Q6HR PRN 3 Days #12 tab 10/11/24 5-325] Lidocaine 5% Patch [Lidoderm 5% 1 patch TOPICAL DAILY #30 patch 10/11/24 Patch] Allergies Allergy/AdvReac Type Severity Reaction Status Date / Time peanut Allergy Anaphylaxis Verified 10/12/24 11:51 Review of Systems ROS Statement: Those systems with pertinent positive or pertinent negative responses have been documented in the HPI. ROS Other: All systems not noted in ROS Statement are negative. Past Medical History Past Medical History: Diabetes Mellitus, Dialysis, Eye Disorder, Fibromyalgia, Hypertension, Pneumonia, Pulmonary Embolus (PE), Renal Disease, Sleep Apnea/CPAP/BIPAP Additional Past Medical History / Comment(s): IDDM type II, neuropathy bilateral feet, chronic renal failure, anemia, chronic lower back and shoulders pain, herniated lumbar disk, glaucoma R eye, carpal tunnel syndrome bilaterally, bronchitis, PAULA with CPAP. Left drop foot, fistula left upper arm, hemodialysis ,, , right displaced rib History of Any Multi-Drug Resistant Organisms: MRSA Date of last positivie culture/infection: 11/21/12 MDRO Source:: lower back Past Surgical History: Orthopedic Surgery Additional Past Surgical History / Comment(s): Incision and drainage back and R groin r/t abscesses removed, bilateral eye surgery for retinal repair, R eye surgery for glaucoma, fistula-left upper arm, cystoscopy with biopsy Past Anesthesia/Blood Transfusion Reactions: Postoperative Nausea & Vomiting (PONV) Additional Past Anesthesia/Blood Transfusion Reaction / Comment(s): pt stated has recieved blood transfusions-no known reaction. Past Psychological History: Anxiety Smoking Status: Never smoker Past Alcohol Use History: None Reported Past Drug Use History: None Reported - Past Family History Brother(s) Family Medical History: Cancer, Deep Vein Thrombosis (DVT) Additional Family Medical History / Comment(s): colon Father Family Medical History: Cancer Additional Family Medical History / Comment(s): Bladder cancer in father. Mother Additional Family Medical History / Comment(s): Mother of brain aneurysm General Exam Limitations: no limitations General appearance: alert, in distress Head exam: Present: atraumatic, normocephalic, normal inspection Respiratory exam: Present: normal lung sounds bilaterally, chest wall tenderness (Right sided). Absent: respiratory distress, wheezes, rales, rhonchi, stridor Cardiovascular Exam: Present: regular rate, normal rhythm, normal heart sounds. Absent: systolic murmur, diastolic murmur, rubs, gallop, clicks GI/Abdominal exam: Present: soft, tenderness (RUQ). Absent: distended Back exam: Present: other (Tenderness to palpation over the right upper back) Neurological exam: Present: alert, oriented X3, CN II-XII intact Psychiatric exam: Present: normal affect, normal mood Skin exam: Present: warm, dry, intact, normal color. Absent: rash Course Vital Signs 10/12/24 10/12/24 10/12/24 07:57 08:06 08:30 Temperature 99.7 F H 99.6 F Pulse Rate 85 86 Pulse Rate [ 86 Oxygraph Operator ] Respiratory 24 Rate Blood Pressure 141/76 124/67 O2 Sat by Pulse 99 97 Oximetry 10/12/24 10/12/24 10/12/24 09:15 10:20 11:04 Temperature 99.3 F 98.7 F Pulse Rate 89 93 84 Pulse Rate [ Oxygraph Operator ] Respiratory 20 16 18 Rate Blood Pressure 127/78 124/79 127/61 O2 Sat by Pulse 95 94 L 94 L Oximetry 10/12/24 10/12/24 10/12/24 12:04 13:02 14:04 Temperature 98.6 F Pulse Rate 85 92 86 Pulse Rate [ Oxygraph Operator ] Respiratory 18 20 18 Rate Blood Pressure 135/69 129/83 122/83 O2 Sat by Pulse 95 95 96 Oximetry 10/12/24 16:06 Temperature Pulse Rate 90 Pulse Rate [ Oxygraph Operator ] Respiratory 18 Rate Blood Pressure 113/79 O2 Sat by Pulse 97 Oximetry Medical Decision Making - Medical Decision Making This is a 54 year old male who presents to the emergency department for right sided chest pain and back pain. Was pt. sent in by a medical professional or institution? @ -No Did you speak to anyone other than the patient for history? @ -No Did you review nursing and triage notes? @ -Yes, and I agree, it is accurate with regards to the patient's symptoms. Were old charts reviewed? @ -No Differential Diagnosis? @ -Differential Chest Pain: Stable Angina, Unstable Angina, STEMI, NSTEMI Aortic Dissection, Pneumothorax, Musculoskeletal, Esophageal Spasm GERD, Cholecystitis, Pancreatitis, Zoster, this is not meant to be an all-inclusive list. EKG interpreted by me (3pts min.)? @ -EKG interpreted by me demonstrating the following: Sinus rhythm. Ventricular rate 83 bpm, MT interval 181 ms, QRS duration 88 ms, QTc 410 ms. X-rays interpreted by me (1pt min.)? @ -Not obtained CT interpreted by me (1pt min.)? @ -CT scan of the chest and abdomen obtained. My interpretation identifies no acute rib fractures. U/S interpreted by me (1pt. min.)? @ -Not obtained What testing was considered but not performed? (CT, X-rays, U/S, labs)? Why? @ -None What meds were considered but not given? Why? @ -None Did you discuss the management of the patient with other professionals? @ -Yes, Dr. Dyer, who accepts the patient for admission Did you reconcile home meds? @ -Yes Was smoking cessation discussed for >3mins.? @ -No Was critical care preformed (if so, how long)? @ -No Were there social determinants of health that impacted care today? How? (Homelessness, low income, unemployed, alcoholism, drug addiction, transportation, low edu. Level, literacy, decrease access to med. care, [facility], rehab)? @ -No Was there de-escalation of care discussed even if they declined? (Discuss DNR or withdrawal of care, Hospice)? @ -No What co-morbidities impacted this encounter? (DM, HTN, Smoking, COPD, CAD, Cancer, CVA, Hep., AIDS, mental health diagnosis, sleep apnea, morbid obesity)? @ -Renal failure, DM Was patient admitted / discharged? @ -Admitted. Lab work demonstrates renal failure consistent with prior values and patient being on dialysis. He has mild hyperkalemia. Chest x-ray from yesterday was unremarkable. We subsequently proceeded with a CT scan of the chest and abdomen today which revealed no acute process. The cause of his symptoms is not entirely clear. Pain is reproducible and worse with movement. Given these findings it is most likely musculoskeletal in nature. However, given his multiple comorbidities and worsening of symptoms, patient admitted to medicine for a cardiac rule out and pain control. Consult placed for cardiology and nephrology. Case discussed with ED attending Dr. Gonzalez. Undiagnosed new problem with uncertain prognosis? @ -None Drug Therapy requiring intensive monitoring for toxicity (Heparin, Nitro, Insulin, Cardizem)? @ -None Were any procedures done? @ -None Diagnosis/symptom? @ -Chest pain, back pain, intractable pain Acute, or Chronic, or Acute on Chronic? @ -Acute Uncomplicated (without systemic symptoms) or Complicated (systemic symptoms)? @ -Uncomplicated Side effects of treatment? @ -None Exacerbation, Progression, or Severe Exacerbation] @ -Not applicable Poses a threat to life or bodily function? @ -The pain is limiting his ability to function. - Lab Data Result diagrams: 10/12/24 08:20 10/12/24 08:20 Lab Results 10/12/24 10/12/24 10/12/24 Range/Units 08:20 08:20 08:20 WBC 9.1 (3.8-10.6) k/uL RBC 4.07 L (4.30-5.90) m/uL Hgb 12.1 L (13.0-17.5) gm/dL Hct 37.4 L (39.0-53.0) % MCV 92.0 (80.0-100.0) fL MCH 29.7 (25.0-35.0) pg MCHC 32.3 (31.0-37.0) g/dL RDW 13.1 (11.5-15.5) % Plt Count 156 (150-450) k/uL MPV 8.9 Neutrophils % 75 % Lymphocytes % 19 % Monocytes % 4 % Eosinophils % 1 % Basophils % 0 % Neutrophils # 6.8 (1.3-7.7) k/uL Lymphocytes # 1.7 (1.0-4.8) k/uL Monocytes # 0.4 (0-1.0) k/uL Eosinophils # 0.1 (0-0.7) k/uL Basophils # 0.0 (0-0.2) k/uL PT 10.6 (10.0-12.5) sec INR 1.0 (<1.2) APTT 27.2 (22.0-30.0) sec Sodium 137 (137-145) mmol/L Potassium 5.4 H (3.5-5.1) mmol/L Chloride 101 (98-107) mmol/L Carbon Dioxide 28 (22-30) mmol/L Anion Gap 8 mmol/L BUN 57 H (9-20) mg/dL Creatinine 10.17 H* (0.66-1.25) mg/dL Est GFR (CKD-EPI)AfAm 6 (>60 ml/min/1.73 sqM) Est GFR (CKD-EPI)NonAf 5 (>60 ml/min/1.73 sqM) Glucose 136 H (74-99) mg/dL Plasma Lactic Acid Saman (0.7-2.0) mmol/L Calcium 8.7 (8.4-10.2) mg/dL Phosphorus 4.6 H (2.5-4.5) mg/dL Magnesium 2.2 (1.6-2.3) mg/dL Total Bilirubin 0.7 (0.2-1.3) mg/dL AST 16 L (17-59) U/L ALT 12 (4-49) U/L Alkaline Phosphatase 70 (38-126) U/L Troponin I (0.000-0.034) ng/mL Total Protein 7.2 (6.3-8.2) g/dL Albumin 4.1 (3.5-5.0) g/dL Amylase 81 (30-110) U/L Lipase 172 (23-300) U/L 10/12/24 10/12/24 Range/Units 08:20 08:20 WBC (3.8-10.6) k/uL RBC (4.30-5.90) m/uL Hgb (13.0-17.5) gm/dL Hct (39.0-53.0) % MCV (80.0-100.0) fL MCH (25.0-35.0) pg MCHC (31.0-37.0) g/dL RDW (11.5-15.5) % Plt Count (150-450) k/uL MPV Neutrophils % % Lymphocytes % % Monocytes % % Eosinophils % % Basophils % % Neutrophils # (1.3-7.7) k/uL Lymphocytes # (1.0-4.8) k/uL Monocytes # (0-1.0) k/uL Eosinophils # (0-0.7) k/uL Basophils # (0-0.2) k/uL PT (10.0-12.5) sec INR (<1.2) APTT (22.0-30.0) sec Sodium (137-145) mmol/L Potassium (3.5-5.1) mmol/L Chloride (98-107) mmol/L Carbon Dioxide (22-30) mmol/L Anion Gap mmol/L BUN (9-20) mg/dL Creatinine (0.66-1.25) mg/dL Est GFR (CKD-EPI)AfAm (>60 ml/min/1.73 sqM) Est GFR (CKD-EPI)NonAf (>60 ml/min/1.73 sqM) Glucose (74-99) mg/dL Plasma Lactic Acid Saman 1.6 (0.7-2.0) mmol/L Calcium (8.4-10.2) mg/dL Phosphorus (2.5-4.5) mg/dL Magnesium (1.6-2.3) mg/dL Total Bilirubin (0.2-1.3) mg/dL AST (17-59) U/L ALT (4-49) U/L Alkaline Phosphatase (38-126) U/L Troponin I <0.012 (0.000-0.034) ng/mL Total Protein (6.3-8.2) g/dL Albumin (3.5-5.0) g/dL Amylase (30-110) U/L Lipase (23-300) U/L - Radiology Data Radiology results: report reviewed, image reviewed Disposition Clinical Impression: Chest pain, Back pain, Intractable pain Disposition: ADMITTED IP TO THIS HOSP
[2024-10-12] MEDS: ORPHENADRINE 30 MG/ML 2 ML VIAL IVP STA (08:23)
[2024-10-12] MEDS: HYDROmorphone 1 MG/ML 1 ML SYRINGE IVP STA ×2 (08:24→09:29)
[2024-10-12 08:38] LABS: Basophils % (A) 0 %; Eosinophils # (A) 0.1 k/uL (0-0.7); Eosinophils % (A) 1 %; HCT 37.4 % (39.0-53.0); HGB 12.1 gm/dL (13.0-17.5); Lymphocytes # (A) 1.7 k/uL (1.0-4.8); Lymphocytes % (A) 19 %; MCH 29.7 pg (25.0-35.0); MCHC 32.3 g/dL (31.0-37.0); Mean Platelet Volume 8.9; Monocytes # (A) 0.4 k/uL (0-1.0); Monocytes % (A) 4 %; Neutrophils # (A) 6.8 k/uL (1.3-7.7); Neutrophils % (A) 75 %; Platelet Count 156 k/uL (150-450); RBC 4.07 m/uL (4.30-5.90); RDW 13.1 % (11.5-15.5); WBC 9.1 k/uL (3.8-10.6)
[2024-10-12 09:13] LABS: Partial Thromboplastin Time 27.2 sec (22.0-30.0); Prothrombin Time 10.6 sec (10.0-12.5)
[2024-10-12] MEDS: ONDANSETRON 4 MG/2 ML VIAL IVP STA (09:27)
[2024-10-12 09:54] LABS: ALT 12 U/L (4-49); AST 16 U/L (17-59); African American GFR (CKD) 6 (>60 ml/min/1.73 sqM); Albumin 4.1 g/dL (3.5-5.0); Alkaline Phosphatase 70 U/L (38-126); Amylase 81 U/L (30-110); Anion Gap 8 mmol/L; Blood Urea Nitrogen 57 mg/dL (9-20); Calcium 8.7 mg/dL (8.4-10.2); Carbon Dioxide 28 mmol/L (22-30); Chloride 101 mmol/L (98-107); Glucose 136 mg/dL (74-99); Lipase 172 U/L (23-300); Magnesium 2.2 mg/dL (1.6-2.3); Non-African American GFR(CKD) 5 (>60 ml/min/1.73 sqM); Phosphorus 4.6 mg/dL (2.5-4.5); Potassium 5.4 mmol/L (3.5-5.1); Sodium 137 mmol/L (137-145); Total Bilirubin 0.7 mg/dL (0.2-1.3); Total Protein 7.2 g/dL (6.3-8.2)
--- NOTE | 2024-10-12 10:16 | CT ---
EXAMINATION TYPE: CT chest abdomen wo con DATE OF EXAM: 10/12/2024 9:05 AM COMPARISON: None. CLINICAL INDICATION: Male, 54 years old with history of r, Rt side rib/chest pain RUQ pain TECHNIQUE: Axial images at 5 mm thick sections. Reconstructed images in the coronal plane. Delayed images through the kidneys. Contrast used: mL of , (none if empty) Oral contrast used: without Oral Contrast (none if empty) CT DLP: 1080.8 mGycm, Automated exposure control for dose reduction was used. FINDINGS: CT CHEST: Portion of the thyroid visualized is normal. Mild streaky opacities right lung base likely on the basis of atelectasis No enlarged mediastinal or hilar adenopathy is evident. The ascending aorta diameter at the level of the main pulmonary artery is 3.5 cm. The main pulmonary artery diameter at the bifurcation is 2.[address] ABDOMEN: Liver: Normal Spleen: Normal Pancreas: Normal Adrenal glands: The adrenal glands are normal. Gallbladder: Normal Kidneys: No masses are evident. No hydronephrosis is present. Small cortical renal cysts are presen t. No renal stones are evident. Aorta: Vascular calcification is within the aorta. Inferior vena cava: Normal. CT PELVIS: Loops of bowel within the abdomen and pelvis are normal. Study is without oral contrast limiting evaluation Appendix: Normal as partially visualized. Osseous structures: Fractures are evident. Right ribs appear intact. IMPRESSION: 1. No acute abnormality to account for right upper quadrant pain and right rib pain [facility] Brittney Grajeda, , 10/12/2024 10:14 AM
[2024-10-12] MEDS ORDERED: ACETAMINOPHEN TAB 325 MG TAB PO PRN (11:56)
[2024-10-12] MEDS ORDERED: ONDANSETRON 4 MG/2 ML VIAL IVP PRN (11:56)
[2024-10-12] MEDS ORDERED: NALOXONE 0.4 MG/ML 1 ML VIAL IV PRN (11:56)
[2024-10-12] MEDS ORDERED: LACTULOSE 20 GM/30 ML CUP PO PRN (11:58)
[2024-10-12] MEDS ORDERED: HYDROcodone/APAP 5-325MG 1 EACH TAB PO PRN (11:58)
[2024-10-12] MEDS ORDERED: LIDOCAINE-PRILOCAINE 2.5-2.5% CREAM 5 GM TUBE TOPICAL PRN (11:58)
[2024-10-12] MEDS ORDERED: carvediloL 12.5 MG TAB PO PRN (11:58)
[2024-10-12] MEDS ORDERED: carvediloL 6.25 MG TAB PO PRN (11:58)
[2024-10-12] MEDS: SEVELAMER 800 MG TAB PO SCH (12:43)
[2024-10-12] MEDS: CALCIUM ACETATE 667 MG TAB PO SCH (12:44)
[2024-10-12 13:06] LABS: Glucose,Whole Blood 97 mg/dL (70-110)
[2024-10-12] MEDS: INSULIN ASPART (NovoLOG) 100 UNIT/ML VIAL SQ SCH (13:14)
[2024-10-12 17:53] LABS: Glucose,Whole Blood 100 mg/dL (70-110)
[2024-10-12] MEDS: ONDANSETRON ODT 4 MG TAB PO PRN (17:55)
[2024-10-12] MEDS: HYDROmorphone 1 MG/ML 1 ML SYRINGE IVP PRN (17:57)
[2024-10-12] MEDS: diphenhydrAMINE 25 MG CAP PO STA (21:50)
--- NOTE | 2024-10-13 02:35 | HP ---
HISTORY AND PHYSICAL CHIEF COMPLAINT: Right chest pain and hip pain. HISTORY OF PRESENT ILLNESS: This is a 54-year-old gentleman with a past medical history of multiple medical problems including end-stage renal disease, on hemodialysis, complaining of excruciating right sacral pain. The patient apparently came to [facility] also. The patient had syncope about 2 days ago. There is no history of any fever, rigors, or chills. Because of lack of improvement, the patient came to [facility] and admitted for further evaluation and treatment. A CT scan of the chest, abdomen, and pelvis which I reviewed personally showed no acute abnormality. The patient was admitted for further evaluation and treatment. Basic labs were also noted. There is no history of any fever, rigors, or chills at this time. PAST MEDICAL HISTORY: History of diabetes mellitus type 2, fibromyalgia, pulmonary embolism. HOME MEDICATIONS: Reviewed include Renvela. Dose and rest of medications noted. ALLERGIES: Peanuts. FAMILY HISTORY: History of bladder cancer in the family. SOCIAL HISTORY: No history of smoking or alcohol. REVIEW OF SYSTEMS: Fourteen-point review of systems is negative except as mentioned earlier. PHYSICAL EXAMINATION: VITAL SIGNS: Pulse is 92, blood pressure 120/83, respirations 20. HEENT: Conjunctivae normal. NECK: No JVD. CARDIOVASCULAR: S1, S2. RESPIRATIONS: Breath sounds diminished at the bases. A few scattered rhonchi and crackles. ABDOMEN: Soft, nontender. LEGS: No edema. NERVOUS SYSTEM: Nonfocal. SKIN: No ulcer, rash, bleeding. JOINTS: No active deforming arthropathy. LABORATORY DATA: Noted. ASSESSMENT: 1. Severe right-sided chest pain, possible pleurisy, rule out pulmonary embolism. 2. End-stage renal disease, on hemodialysis. 3. Diabetes mellitus, type 2. 4. Fibromyalgia. 5. Hypertension. 6. History of pulmonary embolism. RECOMMENDATIONS AND DISCUSSION: I recommend to continue current management and continue symptomatic treatment of the pain and V/Q scan to rule out pulmonary embolism. Guarded prognosis. Further recommendations to follow. See orders for further details. MMODL / IJN: [id number] /
[2024-10-13] MEDS: HYDROcodone/APAP 5-325MG 1 EACH TAB PO PRN (05:14)
[2024-10-13 05:39] LABS: Glucose,Whole Blood 202 mg/dL (70-110)
--- NOTE | 2024-10-13 08:07 | NM ---
EXAMINATION TYPE: NM pul perfusion DATE OF EXAM: 10/13/2024 COMPARISON: 10/11/2024 chest x-ray CLINICAL INDICATION: Male, 54 years old with history of pe; Following administration of 5.46 mCi Tc 99m MAA. Images obtained post injection. FINDINGS: No moderate or large defects are evident. IMPRESSION: Low probability for pulmonary embolism [facility] Brittney Grajeda, Workstation: 3, 10/13/2024 8:05 AM
[2024-10-13] MEDS: LIDOCAINE 4% PATCH TOPICAL SCH (08:36)
[2024-10-13] MEDS: FAMOTIDINE 20 MG TAB PO SCH (08:37)
[2024-10-13] MEDS: FOLIC ACID-VIT B COMPLEX-VIT C 1 CAP PO SCH (08:38)
[2024-10-13] MEDS: INSULIN DETEMIR (LEVEMIR) 100 UNIT/ML SYR SQ SCH (08:38)
[2024-10-13] MEDS: prednisoLONE ACETATE 1% OPHTH DROPS 5 ML BTL RIGHT EYE SCH (08:41)
[2024-10-13] MEDS ORDERED: NON FORMULARY DRUG (Omeprazole 20 MG Capsule.Dr) PO SCH (09:00)
--- NOTE | 2024-10-13 10:26 | P.CRDCN ---
History of Present Illness Consult date: 10/13/24 Consult reason: chest pain History of present illness: This is a 54-year-old male patient of Dr. Quijano with past medical history of hypertension, diabetes, end-stage renal disease on hemodialysis. We have been asked to evaluate the patient for chest pain. Patient is complaining of right- sided rib pain that starts in his back below the shoulder blade and comes around to the side. The pain is worse with deep breathing and worse with movement. No rashes noted. And he does have tenderness to the area. He states that he had a passing out episode on Wednesday after his dialysis treatment. He was at home at the time and his blood pressure was 72 systolic. Patient states that he passed out for 3 hours. He has had no further episodes of syncope. Blood pressure 119/74, heart rate 94, pulse ox 95% on room air. Nephrology is on consult for dialysis. EKG: Sinus rhythm with no acute ST changes CT of the chest and abdomen: No acute abnormality to account for right upper quadrant and right rib pain. VQ scan: Low probability for PE Laboratory studies: WBC 9.1, hemoglobin 12.1. Sodium 137, potassium 5.4, creatinine 10.1. Troponin negative x 3. C-reactive protein 3.3. Home cardiac medications: Echocardiogram performed 06/2023 revealed normal EF Dobutamine stress echocardiogram performed 06/2023 was normal with normal EF. Review Of Systems: At the time of my exam: CONSTITUTIONAL: Denies fever or chills. HEENT: Denies blurred vision, vision changes, or eye pain. Denies hemoptysis CARDIOVASCULAR: Denies chest pain. Denies orthopnea. Denies PND. Denies palpitations. Complains of right rib pain, right thoracic back pain. RESPIRATORY: Denies shortness of breath. GASTROINTESTINAL: Denies abdominal pain. Denies nausea or vomiting. HEMATOLOGIC: Denies bleeding disorders. GENITOURINARY: Denies any blood in urine. SKIN: Denies puritis. Denies rash. Physical examination: Gen: This is a 54-year-old black male in no acute distress. VS: reviewed HEENT: Head is atraumatic, normocephalic. Pupils equal, round. Sclerae is anicte khadijah. NECK: Supple. No JVD. LUNGS: Clear to auscultation. No wheezes or rhonchi. No intercostal re tractions. HEART: Regular rate and rhythm. No murmur. Thoracic posterior tenderness. No rash. ABDOMEN: Soft No tenderness. EXTREMITIES: No pedal edema. No calf tenderness. NEUROLOGICAL: Patient is awake, alert and oriented x3. Assessment: Typical chest pain, acute coronary syndrome ruled out Chest pain is noncardiac Syncope, most likely orthostatic hypotension following dialysis Hypertension Diabetes End-stage renal disease on hemodialysis Plan: Resume patient's home cardiac medications Obtain 2-D echocardiogram and Doppler study to assess cardiac structure and function If echocardiogram is unremarkable, no further cardiac workup is planned at this time and patient may follow-up in the office with Dr. Quijano in 1 to 2 weeks. Thank you kindly for this consultation. Nurse practitioner note has been reviewed, I agree with documented findings and plan of care. Patient was seen and examined. Past Medical History Past Medical History: Diabetes Mellitus, Dialysis, Eye Disorder, Fibromyalgia, Hypertension, Pneumonia, Pulmonary Embolus (PE), Renal Disease, Sleep Apnea/CPAP/BIPAP Additional Past Medical History / Comment(s): IDDM type II, neuropathy bilateral feet, chronic renal failure, anemia, chronic lower back and shoulders pain, herniated lumbar disk, glaucoma R eye, carpal tunnel syndrome bilaterally, bronchitis, PAULA with CPAP. Left drop foot, fistula left upper arm, hemodialysis ,, , right displaced rib History of Any Multi-Drug Resistant Organisms: MRSA Date of last positivie culture/infection: 11/21/12 MDRO Source:: lower back Past Surgical History: Orthopedic Surgery Additional Past Surgical History / Comment(s): Incision and drainage back and R groin r/t abscesses removed, bilateral eye surgery for retinal repair, R eye surgery for glaucoma, fistula-left upper arm, cystoscopy with biopsy, biopsy of right breast lump. Past Anesthesia/Blood Transfusion Reactions: Postoperative Nausea & Vomiting (PONV) Additional Past Anesthesia/Blood Transfusion Reaction / Comment(s): pt stated has recieved blood transfusions-no known reaction. Smoking Status: Never smoker - Past Family History Brother(s) Family Medical History: Cancer, Deep Vein Thrombosis (DVT) Additional Family Medical History / Comment(s): colon, lung ca Father Family Medical History: Cancer Additional Family Medical History / Comment(s): Bladder cancer in father. Mother Additional Family Medical History / Comment(s): Mother of brain aneurysm Medications and Allergies Home Medications Medication Instructions Recorded Confirmed Type carvediloL [Coreg] 25 mg PO BID PRN 06/27/20 10/12/24 History Calcium Acetate [PhosLo] 1,334 mg PO TID-W/MEALS 03/01/21 10/12/24 History Insulin Glargine,Hum.rec.anlog 30 unit SQ DAILY 10/28/21 10/12/24 History [Basaglar Kwikpen U-100] Insulin Aspart [NovoLOG Flexpen] 3 units SQ TID-W/MEALS 07/13/22 10/12/24 History prednisoLONE ACETATE 1% OPHTH 1 drop RIGHT EYE DAILY 09/30/22 10/12/24 History [Pred Forte 1%] Famotidine [Pepcid] 20 mg PO DAILY 07/01/23 10/12/24 History Lidocaine-Prilocaine Cream [Emla 1 applic TOPICAL DAILY PRN 07/01/23 10/12/24 History Cream 2.5%/2.5%] Sevelamer [Renvela] 3,200 mg PO TID-W/MEALS 07/01/23 10/12/24 History Dulaglutide [Trulicity] 3 mg SQ WE 09/21/24 10/12/24 History Folic Acid/Vit B Complex and C 0.8 mg PO DAILY 09/21/24 10/12/24 History [Nephro-Lori Tablet] Insulin Aspart [NovoLOG Flexpen] See Protocol SQ TID-W/MEALS PRN 09/21/24 10/12/24 History carvediloL [Coreg] 6.25 mg PO BID PRN 09/21/24 10/12/24 History Ondansetron Odt [Zofran Odt] 4 mg PO Q8HR PRN #10 tab 09/25/24 10/12/24 Rx HYDROcodone/APAP 5-325MG [[place] 1 tab PO Q6HR PRN 3 Days #12 tab 10/11/24 10/12/24 Rx 5-325] Lactulose 10 gm PO DAILY PRN 10/11/24 10/12/24 History Lidocaine 5% Patch [Lidoderm 5% 1 patch TOPICAL DAILY #30 patch 10/11/24 Rx Patch] Omeprazole [PriLOSEC] 20 mg PO DAILY 10/12/24 10/12/24 History Allergies Allergy/AdvReac Type Severity Reaction Status Date / Time peanut Allergy Anaphylaxis Verified 10/12/24 11:51 Physical Exam Vitals: Vital Signs Temp Pulse Pulse Resp BP BP Pulse Ox 10/13/24 02:00 99.3 F 87 20 125/83 92 L 10/13/24 01:27 101 H 18 10/12/24 22:00 101 H 18 10/12/24 21:17 99.6 F 101 H 18 111/68 92 L 10/12/24 20:26 98 18 120/74 95 10/12/24 19:04 112 H 20 108/62 93 L 10/12/24 17:58 99.0 F 16 106/65 10/12/24 17:57 99.0 F 100 16 114/69 95 10/12/24 17:03 87 20 104/69 97 10/12/24 16:06 90 18 113/79 97 10/12/24 14:04 86 18 122/83 96 10/12/24 13:02 92 20 129/83 95 10/12/24 12:04 98.6 F 85 18 135/69 95 10/12/24 11:04 84 18 127/61 94 L 10/12/24 10:20 98.7 F 93 16 124/79 94 L 10/12/24 09:15 99.3 F 89 20 127/78 95 10/12/24 08:30 99.6 F 86 24 124/67 97 10/12/24 08:06 86 10/12/24 07:57 99.7 F H 85 24 141/76 99 Intake and Output 10/12/24 10/13/24 10/13/24 22:59 06:59 14:59 Intake Total 4800 Output Total 4800 Balance 0 Intake: Hemodialysis 4800 Output: Hemodialysis 800 Hemodialysis Net Amount 4000 Other: # Voids 0 1 Weight 135.171 kg Results 10/12/24 08:20 10/12/24 08:20 Cardiac Enzymes 10/12/24 10/12/24 10/12/24 Range/Units 08:20 08:20 12:17 AST 16 L (17-59) U/L Troponin I <0.012 <0.012 (0.000-0.034) ng/mL 10/12/24 Range/Units 15:17 AST (17-59) U/L Troponin I <0.012 (0.000-0.034) ng/mL Coagulation 10/12/24 Range/Units 08:20 PT 10.6 (10.0-12.5) sec APTT 27.2 (22.0-30.0) sec CBC 10/12/24 Range/Units 08:20 WBC 9.1 (3.8-10.6) k/uL RBC 4.07 L (4.30-5.90) m/uL Hgb 12.1 L (13.0-17.5) gm/dL Hct 37.4 L (39.0-53.0) % Plt Count 156 (150-450) k/uL Comprehensive Metabolic Panel 10/12/24 Range/Units 08:20 Sodium 137 (137-145) mmol/L Potassium 5.4 H (3.5-5.1) mmol/L Chloride 101 (98-107) mmol/L Carbon Dioxide 28 (22-30) mmol/L BUN 57 H (9-20) mg/dL Creatinine 10.17 H* (0.66-1.25) mg/dL Glucose 136 H (74-99) mg/dL Calcium 8.7 (8.4-10.2) mg/dL AST 16 L (17-59) U/L ALT 12 (4-49) U/L Alkaline Phosphatase 70 (38-126) U/L Total Protein 7.2 (6.3-8.2) g/dL Albumin 4.1 (3.5-5.0) g/dL Current Medications Generic Name Dose Route Start Last Admin Trade Name Cesarq PRN Reason Stop Dose Admin Acetaminophen 650 mg 10/12/24 11:56 Acetaminophen Tab 325 Mg Tab PO Q6HR PRN Mild Pain or Fever > 100.5 Hydrocodone Bitart/Acetaminophen 1 each 10/12/24 11:56 10/13/24 05:14 Hydrocodone/Apap 5-325mg 1 Each Tab PO 1 each Q4HR PRN Administration Moderate Pain (Scale 4 to 6) Hydrocodone Bitart/Acetaminophen 1 each 10/12/24 11:58 Hydrocodone/Apap 5-325mg 1 Each Tab PO Q6HR PRN Severe Breakthrough Pain Calcium Acetate 1,334 mg 10/12/24 12:30 10/12/24 13:14 Calcium Acetate 667 Mg Tab PO Not Given TID-W/MEALS [facility] Carvedilol 6.25 mg 10/12/24 11:58 Carvedilol 6.25 Mg Tab PO BID PRN Blood Pressure - High Carvedilol 25 mg 10/12/24 11:58 Carvedilol 12.5 Mg Tab PO BID PRN Blood Pressure - High Famotidine 20 mg 10/13/24 09:00 Famotidine 20 Mg Tab PO DAILY [facility] Hydromorphone HCl 1 mg 10/12/24 11:56 10/13/24 00:33 Hydromorphone 1 Mg/Ml 1 Ml Syringe IVP 1 mg Q3HR PRN Administration Severe Pain (Scale 7 to 10) Insulin Aspart 3 unit 10/12/24 12:30 10/12/24 17:52 Insulin Aspart (Novolog) 100 Unit/Ml Vial SQ Not Given TID-W/MEALS [facility] Insulin Detemir 30 unit 10/13/24 09:00 Insulin Detemir (Levemir) 100 Unit/Ml Syr SQ DAILY [facility] Lactulose 10 gm 10/12/24 11:58 Lactulose 20 Gm/30 Ml Cup PO DAILY PRN Constipation Lidocaine 1 patch 10/13/24 09:00 Lidocaine 4% Patch TOPICAL DAILY [facility] Lidocaine/Prilocaine 1 applic 10/12/24 11:58 Lidocaine-Prilocaine 2.5-2.5% Cream 5 Gm Tube TOPICAL DAILY PRN PORT ACCESS Protocol Multivit/Ca Carb/B Cmplx/FA/Prenat 1 each 10/13/24 09:00 Folic Acid-Vit B Complex-Vit C 1 Cap PO DAILY [facility] Naloxone HCl 0.2 mg 10/12/24 11:56 Naloxone 0.4 Mg/Ml 1 Ml Vial IV Q2M PRN Opioid Reversal Non-Formulary Medication 3 mg 10/18/24 09:00 Dulaglutide [Trulicity] SQ WE [facility] Ondansetron HCl 4 mg 10/12/24 11:56 Ondansetron 4 Mg/2 Ml Vial IVP Q8HR PRN Nausea And Vomiting Ondansetron HCl 4 mg 10/12/24 11:58 10/12/24 17:55 Ondansetron Odt 4 Mg Tab PO 4 mg Q8HR PRN Administration Nausea Pantoprazole Sodium 40 mg 10/13/24 09:00 Pantoprazole 40 Mg/10 Ml Vial IV DAILY LORI Prednisolone Acetate 1 drops 10/13/24 09:00 Prednisolone Acetate 1% Ophth Drops 5 Ml Btl RIGHT EYE DAILY LORI Sevelamer Carbonate 3,200 mg 10/12/24 12:30 10/12/24 13:14 Sevelamer 800 Mg Tab PO Not Given TID-W/MEALS LORI Intake and Output 10/12/24 10/13/24 10/13/24 22:59 06:59 14:59 Intake Total 4800 Output Total 4800 Balance 0 Intake: Hemodialysis 4800 Output: Hemodialysis 800 Hemodialysis Net Amount 4000 Other: # Voids 0 1 Weight 135.171 kg 10/12/24 08:20 10/12/24 08:20
[2024-10-13 10:46] LABS: Basophils # (A) 0.02 X 10*3/uL (0.00-0.10); Basophils % (A) 0.3 %; Eosinophils # (A) 0.05 X 10*3/uL (0.04-0.35); Eosinophils % (A) 0.6 %; HCT 35.1 % (39.6-50.0); HGB 11.5 g/dL (13.0-17.0); Lymphocytes # (A) 1.98 X 10*3/uL (0.90-5.00); Lymphocytes % (A) 25.6 %; MCH 29.6 pg (27.0-32.0); MCHC 32.8 g/dL (32.0-37.0); MCV 90.2 FL (80.0-97.0); Mean Platelet Volume 10.9 FL (9.5-12.2); Monocytes # (A) 0.76 X 10*3/uL (0.20-1.00); Monocytes % (A) 9.8 %; NRBC Per 100 WBC 0 X 10*3/uL (0.00-0.01); Neutrophils # (A) 4.91 X 10*3/uL (1.80-7.70); Neutrophils % (A) 63.6 %; Platelet Count 144 X 10*3/uL (140-440); RBC 3.89 X 10*6/uL (4.40-5.60); RDW 12.5 % (11.5-14.5); WBC 7.73 X 10*3/uL (4.50-10.00)
--- NOTE | 2024-10-13 10:55 | P.NPCON ---
History of Present Illness - Reason for Consult end stage renal disease - History of Present Illness patient is a 54-year-old male with end-stage renal disease on hemodialysis on Wednesday schedule. He was admitted to the hospital with complaints of severe right-sided chest pain. Patient denies any fall or trauma however he stated that his blood pressure was very low after dialysis on Wednesday and he went to sleep but does not remember any falls or trauma. No history of fever or cough, patient admitted to some nausea. No vomiting. CT of the abdomen and chest was unremarkable. pulmonary perfusion scan was negative as well. Troponin levels are not elevated. Past Medical History Past Medical History: Diabetes Mellitus, Dialysis, Eye Disorder, Fibromyalgia, Hypertension, Pneumonia, Pulmonary Embolus (PE), Renal Disease, Sleep Apnea/CPAP/BIPAP Additional Past Medical History / Comment(s): IDDM type II, neuropathy bilateral feet, chronic renal failure, anemia, chronic lower back and shoulders pain, herniated lumbar disk, glaucoma R eye, carpal tunnel syndrome bilaterally, bronchitis, PAULA with CPAP. Left drop foot, fistula left upper arm, hemodialysis ,, , right displaced rib History of Any Multi-Drug Resistant Organisms: MRSA Date of last positivie culture/infection: 11/21/12 MDRO Source:: lower back Past Surgical History: Orthopedic Surgery Additional Past Surgical History / Comment(s): Incision and drainage back and R groin r/t abscesses removed, bilateral eye surgery for retinal repair, R eye surgery for glaucoma, fistula-left upper arm, cystoscopy with biopsy, biopsy of right breast lump. Past Anesthesia/Blood Transfusion Reactions: Postoperative Nausea & Vomiting (PONV) Additional Past Anesthesia/Blood Transfusion Reaction / Comment(s): pt stated has recieved blood transfusions-no known reaction. Smoking Status: Never smoker - Past Family History Brother(s) Family Medical History: Cancer, Deep Vein Thrombosis (DVT) Additional Family Medical History / Comment(s): colon, lung ca Father Family Medical History: Cancer Additional Family Medical History / Comment(s): Bladder cancer in father. Mother Additional Family Medical History / Comment(s): Mother of brain aneurysm Medications and Allergies Home Medications Medication Instructions Recorded Confirmed Type carvediloL [Coreg] 25 mg PO BID PRN 06/27/20 10/12/24 History Calcium Acetate [PhosLo] 1,334 mg PO TID-W/MEALS 03/01/21 10/12/24 History Insulin Glargine,Hum.rec.anlog 30 unit SQ DAILY 10/28/21 10/12/24 History [Basaglar Kwikpen U-100] Insulin Aspart [NovoLOG Flexpen] 3 units SQ TID-W/MEALS 07/13/22 10/12/24 History prednisoLONE ACETATE 1% OPHTH 1 drop RIGHT EYE DAILY 09/30/22 10/12/24 History [Pred Forte 1%] Famotidine [Pepcid] 20 mg PO DAILY 07/01/23 10/12/24 History Lidocaine-Prilocaine Cream [Emla 1 applic TOPICAL DAILY PRN 07/01/23 10/12/24 History Cream 2.5%/2.5%] Sevelamer [Renvela] 3,200 mg PO TID-W/MEALS 07/01/23 10/12/24 History Dulaglutide [Trulicity] 3 mg SQ WE 09/21/24 10/12/24 History Folic Acid/Vit B Complex and C 0.8 mg PO DAILY 09/21/24 10/12/24 History [Nephro-Lori Tablet] Insulin Aspart [NovoLOG Flexpen] See Protocol SQ TID-W/MEALS PRN 09/21/24 10/12/24 History carvediloL [Coreg] 6.25 mg PO BID PRN 09/21/24 10/12/24 History Ondansetron Odt [Zofran Odt] 4 mg PO Q8HR PRN #10 tab 09/25/24 10/12/24 Rx HYDROcodone/APAP 5-325MG [[place] 1 tab PO Q6HR PRN 3 Days #12 tab 10/11/24 10/12/24 Rx 5-325] Lactulose 10 gm PO DAILY PRN 10/11/24 10/12/24 History Lidocaine 5% Patch [Lidoderm 5% 1 patch TOPICAL DAILY #30 patch 10/11/24 10/12/24 Rx Patch] Omeprazole [PriLOSEC] 20 mg PO DAILY 10/12/24 10/12/24 History Allergies Allergy/AdvReac Type Severity Reaction Status Date / Time peanut Allergy Anaphylaxis Verified 10/12/24 11:51 Physical Exam Vitals: Vital Signs Temp Pulse Pulse Pulse Resp BP BP 11/15/24 09:40 99.3 F 94 16 119/74 10/13/24 02:00 99.3 F 87 20 125/83 10/13/24 01:27 101 H 18 10/12/24 22:00 101 H 18 10/12/24 21:17 99.6 F 101 H 18 111/68 10/12/24 20:26 98 18 120/74 10/12/24 19:04 112 H 20 108/62 10/12/24 17:58 99.0 F 16 106/65 10/12/24 17:57 99.0 F 100 16 114/69 10/12/24 17:03 87 20 104/69 10/12/24 16:06 90 18 113/79 10/12/24 14:04 86 18 122/83 10/12/24 13:02 92 20 129/83 10/12/24 12:04 98.6 F 85 18 135/69 10/12/24 11:04 84 18 127/61 Pulse Ox 10/13/24 09:40 95 10/13/24 02:00 92 L 10/13/24 01:27 10/12/24 22:00 10/12/24 21:17 92 L 10/12/24 20:26 95 10/12/24 19:04 93 L 10/12/24 17:58 10/12/24 17:57 95 10/12/24 17:03 97 10/12/24 16:06 97 10/12/24 14:04 96 10/12/24 13:02 95 10/12/24 12:04 95 10/12/24 11:04 94 L Intake and Output 10/12/24 10/13/24 10/13/24 22:59 06:59 14:59 Intake Total 4800 Output Total 4800 Balance 0 Intake: Hemodialysis 4800 Output: Hemodialysis 800 Hemodialysis Net Amount 4000 Other: # Voids 0 1 Weight 135.171 kg patient is awake, comfortable, no acute distress. Examination of the heart S1 and S2 Examination of the lungs bilateral breath sounds are heard Abdomen is soft nontender Significant tenderness noted in the right chest area Examination of lower extremity shows no significant edema BAIL AGENT exam grossly intact Results - Lab Results Most recent lab results Calcium 8.7 mg/dL (8.4-10.2) 10/12/24 08:20 Phosphorus 4.6 mg/dL (2.5-4.5) H 10/12/24 08:20 Magnesium 2.2 mg/dL (1.6-2.3) 10/12/24 08:20 10/13/24 07:02 10/12/24 08:20 Assessment and Plan Assessment: 1. End-stage renal disease on hemodialysis on Wednesday s cassidy. 2. Severe right chest pain, unclear etiology,? Rib fracture, although none seen on CT 3. CK D mineral bone disorder Plan: hemodialysis in a.m. with no significant UF Continue with phosphate binders Decrease Coreg if blood pressure remains on the lower side.
[2024-10-13 10:57] LABS: BUN/Creat Ratio 4.81 Ratio (12.00-20.00); Blood Urea Nitrogen 46.7 mg/dL (9.0-27.0); Calcium 8.8 mg/dL (8.7-10.3); Carbon Dioxide 26.4 mmol/L (21.6-31.8); Chloride 95 mmol/L (96-109); Glucose 149 mg/dL (70-110); Potassium 5.2 mmol/L (3.5-5.5); Sodium 134 mmol/L (135-145)
[2024-10-13 12:16] LABS: Glucose,Whole Blood 133 mg/dL (70-110)
[2024-10-13] MEDS: PANTOPRAZOLE 40 MG/10 ML VIAL IV SCH (12:20)
--- NOTE | 2024-10-13 13:29 | CA ---
Transthoracic Echo Report Name: Gomez Louis Age: 54 Gender: M : 1970 Exam Date: 10/13/2024 11:44 Exam Location: [place] [facility] Ht (in): 73 Wt (lb): 298 Ordering Physician: Jayleen Escoto Attending/Referring Phys: [id number], Tigist Policy Director Mackenzie Nava RDCS Procedure CPT: Indications: LVF Cardiac Hx: Technical Quality: Fair Contrast 1: Definity Total Dose (mL): 2 Contrast 2: Total Dose (mL): MEASUREMENTS (Male / Female) Normal Values 2D ECHO LV Diastolic Diameter PLAX 4.2 cm 4.2 - 5.9 / 3.9 - 5.3 cm LV Systolic Diameter PLAX 2.5 cm IVS Diastolic Thickness 1.3 cm 0.6 - 1.0 / 0.6 - 0.9 cm LVPW Diastolic Thickness 1.6 cm 0.6 - 1.0 / 0.6 - 0.9 cm LV Relative Wall Thickness 0.7 RV Internal Dim ED PLAX 1.9 cm LA Systolic Diameter LX 3.7 cm 3.0 - 4.0 / 2.7 - 3.8 cm LA Volume 46.6 cm??? 18 - 58 / 22 - 52 cm??? LA Volume Index 17.3 cm???/m??? 16 - 28 cm???/m??? M-MODE Aortic Root Diameter MM 4.5 cm LA Systolic Diameter MM 3.5 cm LA Ao Ratio MM 0.8 AV Cusp Separation MM 2.4 cm DOPPLER AV Peak Velocity 137.0 cm/s AV Peak Gradient 7.5 mmHg AV Mean Velocity 110.2 cm/s AV Mean Gradient 5.2 mmHg AV Velocity Time Integral 25.4 cm MV Area PHT 2.5 cm??? Mitral E Point Velocity 85.3 cm/s Mitral A Point Velocity 84.9 cm/s Mitral E to A Ratio 1.0 MV Deceleration Time 304.8 ms TR Peak Velocity 144.8 cm/s TR Peak Gradient 8.4 mmHg FINDINGS Left Ventricle Left ventricular ejection fraction is estimated at 60-65 %. Moderately increased left ventricular wall thickness. Normal left ventricular systolic function with no obvious regional wall motion abnormalities. Left ventricular cavity size normal. Right Ventricle Normal right ventricular size and function. Right ventricular systolic pressure within normal limits. Right Atrium Normal right atrial size. Left Atrium Normal left atrial size. Mitral Valve Structurally normal mitral valve. Trace mitral regurgitation. No mitral stenosis. Aortic Valve Trileaflet aortic valve. No aortic valve stenosis or regurgitation. Tricuspid Valve Structurally normal tricuspid valve. Trace tricuspid regurgitation. No tricuspid stenosis. Pulmonic Valve Structurally normal pulmonic valve. Trace pulmonic regurgitation. No pulmonic stenosis. Pericardium No pericardial or pleural effusion. Aorta Moderate aortic dilatation at the level of the sinuses of valsalva (root), 4.5cm. CONCLUSIONS Normal biventricular systolic function No significant valvular abnormalities Dilated aorta at the level of sinus of Valsalva at 4.5 cm No pericardial effusion Previewed by: Dr. Urbano Mendez MD (Electronically Signed) Final Date: 13 October 2024 13:28
[2024-10-13] MEDS ORDERED: HYDROmorphone 0.5 MG/0.5 ML SYRINGE IVP PRN (15:26)
--- NOTE | 2024-10-13 15:41 | XR ---
EXAMINATION TYPE: XR chest 1V portable DATE OF EXAM: 10/13/2024 3:35 PM COMPARISON: Chest radiographs from 10/11/2024. CLINICAL INDICATION: Male, 54 years old with history of chf; TECHNIQUE: XR chest 1V portable Frontal view of the chest. FINDINGS: Lungs/Pleura: There is no evidence of pleural effusion, focal consolidation, or pneumothorax. Pulmonary vascularity: Pulmonary vascular congestion. Heart/mediastinum: Cardiomediastinal silhouette is enlarged. Musculoskeletal: No acute osseous pathology. Right central venous catheter with tip terminating at the superior cavoatrial junction. IMPRESSION: Cardiomegaly, pulmonary vascular congestion and bilateral pleural effusions. Correlate with BNP for c ongestive heart failure. [facility], , 10/13/2024 3:38 PM
[2024-10-13] MEDS: methylPREDNISolone SOD SUCCI 125 MG/2 ML VIAL IV SCH (16:24)
[2024-10-13] MEDS: LACTULOSE 20 GM/30 ML CUP PO SCH (16:24)
[2024-10-13 17:01] LABS: Glucose,Whole Blood 154 mg/dL (70-110)
[2024-10-13 17:34] LABS: C Reactive Protein 17.2 mg/dL (<1.0)
[2024-10-13] MEDS: IPRATROPIUM-ALBUTEROL 3 ML NEB INHALATION SCH (19:32)
[2024-10-13] MEDS: HEPARIN SODIUM,PORCINE 5,000 UNIT/ML 1 ML VIAL SQ SCH (20:35)
--- NOTE | 2024-10-14 03:53 | PN ---
PROGRESS NOTE DATE OF SERVICE: 10/13/2024 SUBJECTIVE: This is a 54-year-old gentleman admitted with right-sided chest pain, is being closely monitored at this time. The V/Q scan shows low probability. The patient still has some pain. The CT scan of the chest and abdomen did not show any acute abnormality at this time. OBJECTIVE: VITAL SIGNS: Pulse is 94, blood pressure 190/74, respirations 16. CHEST: A few scattered rhonchi and crackles. ABDOMEN: Soft. NERVOUS SYSTEM: Nonfocal. LABORATORY DATA: Noted. ASSESSMENT: 1. Severe right-sided chest pain, possible pleurisy. Pulmonary embolism ruled out. 2. End-stage renal disease, on hemodialysis. 3. Diabetes mellitus, type 2. 4. Fibromyalgia. 5. Hypertension. 6. History of pulmonary embolism. RECOMMENDATIONS AND DISCUSSION: This is a 54-year-old gentleman presented with multiple complex medical issues, we will monitor the patient closely. I would recommend to continue current medications. I would recommend to add bronchodilators and as well as steroids empirically to the current regimen. Otherwise, closely follow. Continue the pain management. Further recommendations to follow. MMODL / IJN: [id number] /
[2024-10-14 08:04] LABS: Glucose,Whole Blood 271 mg/dL (70-110)
[2024-10-14] MEDS: PANTOPRAZOLE 40 MG/10 ML VIAL IVP SCH (08:48)
[2024-10-14 12:30] LABS: Glucose,Whole Blood 252 mg/dL (70-110)
--- NOTE | 2024-10-14 13:01 | P.PN ---
Subjective Progress Note Date: 10/14/24 Patient seen for follow-up ESRD. Seen while on HD today. patient is awake, comfortable, no acute distress. Examination of the heart S1 and S2 Examination of the lungs bilateral breath sounds are heard Abdomen is soft nontender Significant tenderness noted in the right chest area Examination of lower extremity shows no significant edema RESOURCE RECOVERY ENGINEER exam grossly intact Objective - Vital Signs Vital signs: Vital Signs Temp 98.2 F 10/14/24 07:00 Pulse 92 10/14/24 08:08 Resp 17 10/14/24 07:00 BP 157/94 10/14/24 07:00 Pulse Ox 96 10/14/24 07:00 FiO2 Intake & Output 10/13/24 10/14/24 10/14/24 18:59 06:59 18:59 Intake Total 118 1040 118 Balance 118 1040 118 Intake: Oral 118 1040 118 Other: # Voids 3 2 - Labs CBC & Chem 7: 10/13/24 07:02 10/13/24 07:02 Labs: Abnormal Lab Results - Last 24 Hours (Table) 10/13/24 10/13/24 10/13/24 Range/Units 12:15 16:28 16:59 POC Glucose (mg/dL) 133 H 154 H (70-110) mg/dL C-Reactive Protein 17.2 H (<1.0) mg/dL 10/14/24 Range/Units 08:02 POC Glucose (mg/dL) 271 H (70-110) mg/dL C-Reactive Protein (<1.0) mg/dL Assessment and Plan Assessment: 1. End-stage renal disease on hemodialysis on Wednesday schedule. 2. Severe right chest pain, unclear etiology,? Rib fracture, although none seen on CT 3. CKD mineral bone disorder 4. HTN with ESRD 5. Anemai with CKD goal HB 10-11.5 Plan: Hemodialysis today, seen while on HD this morning. Continue with phosphate binders
[2024-10-14 17:39] LABS: Glucose,Whole Blood 316 mg/dL (70-110)
[2024-10-14 20:42] LABS: Glucose,Whole Blood 333 mg/dL (70-110)
--- NOTE | 2024-10-15 07:09 | PN ---
PROGRESS NOTE DATE OF SERVICE: 10/14/2024 SUBJECTIVE: This is a 54-year-old gentleman with severe right-sided chest pain with lack of improvement after the pain medication, is being closely monitored at this time. The V/Q scan is low probability. The blood sugars are elevated. C-reactive protein is 17.2. PAST MEDICAL HISTORY: Reviewed. REVIEW OF SYSTEMS: A 14-point review is negative except as mentioned earlier. CURRENT MEDICATIONS: Reviewed include [place]. PHYSICAL EXAMINATION: VITAL SIGNS: Pulse is 97, blood pressure 152/80, respirations 19. CHEST: Conjunctivae normal. CARDIOVASCULAR: S1, S2. RESPIRATIONS: Breath sounds diminished at the bases. A few scattered rhonchi and crackles. ABDOMEN: Soft. NERVOUS SYSTEM: Nonfocal. LABORATORY DATA: Reviewed. ASSESSMENT: 1. Severe right-sided chest pain, possibly pleurisy. Pulmonary embolism ruled out. 2. End-stage renal disease, on hemodialysis. 3. Diabetes mellitus, type 2. 4. Fibromyalgia. 5. Hypertension. 6. History of pulmonary embolism. RECOMMENDATIONS AND DISCUSSION: Recommend to continue current medications, continue symptomatic treatment. Recommend Infectious Disease evaluation for elevated CRP and the sedimentation rate. Otherwise, empiric steroids. Continue to monitor. Pain medications. Guarded prognosis. Repeat labs. Further recommendations to follow. MMODL / IJN: [id number] /
[2024-10-15 08:12] LABS: Glucose,Whole Blood 430 mg/dL (70-110)
[2024-10-15] MEDS: INSULIN DETEMIR (LEVEMIR) 100 UNIT/ML SYR SQ ONE (09:40)
[2024-10-15 09:54] LABS: Basophils # (A) 0 X 10*3/uL (0.00-0.10); Basophils % (A) 0 %; Eosinophils # (A) 0 X 10*3/uL (0.04-0.35); Eosinophils % (A) 0 %; HGB 11.6 g/dL (13.0-17.0); Lymphocytes # (A) 0.66 X 10*3/uL (0.90-5.00); MCH 29.7 pg (27.0-32.0); MCHC 33.1 g/dL (32.0-37.0); MCV 89.5 FL (80.0-97.0); Mean Platelet Volume 11.4 FL (9.5-12.2); Monocytes # (A) 0.27 X 10*3/uL (0.20-1.00); Monocytes % (A) 2.1 %; NRBC Per 100 WBC 0 X 10*3/uL (0.00-0.01); Neutrophils # (A) 12.12 X 10*3/uL (1.80-7.70); Neutrophils % (A) 92.4 %; Platelet Count 175 X 10*3/uL (140-440); RBC 3.91 X 10*6/uL (4.40-5.60); RDW 12.1 % (11.5-14.5); WBC 13.11 X 10*3/uL (4.50-10.00)
[2024-10-15] MEDS ORDERED: INSULIN ASPART (NovoLOG) 100 UNIT/ML VIAL SQ SCH (10:00)
[2024-10-15 10:08] LABS: BUN/Creat Ratio 5.59 Ratio (12.00-20.00); Blood Urea Nitrogen 48.6 mg/dL (9.0-27.0); Calcium 8.8 mg/dL (8.7-10.3); Carbon Dioxide 25.7 mmol/L (21.6-31.8); Chloride 92 mmol/L (96-109); Glucose 455 mg/dL (70-110); Potassium 5.5 mmol/L (3.5-5.5); Sodium 132 mmol/L (135-145)
--- NOTE | 2024-10-15 11:46 | P.PN ---
Subjective Progress Note Date: 10/15/24 Patient seen for follow-up ESRD. Tolerated HD yesterday without issues. Hoping to go home today. patient is awake, comfortable, no acute distress. Examination of the heart S1 and S2 Examination of the lungs bilateral breath sounds are heard Abdomen is soft nontender Significant tenderness noted in the right chest area Examination of lower extremity shows no significant edema [employer] exam grossly intact Objective - Vital Signs Vital signs: Vital Signs Temp 98.1 F 10/15/24 07:25 Pulse 88 10/15/24 08:02 Resp 17 10/15/24 07:25 BP 158/81 10/15/24 07:25 Pulse Ox 94 L 10/15/24 07:25 FiO2 Intake & Output 10/14/24 10/15/24 10/15/24 18:59 06:59 18:59 Intake Total 918 Output Total 1800 Balance -882 Intake: Oral 118 Hemodialysis 800 Output: Hemodialysis 1300 Hemodialysis Net Amount 500 Other: # Voids 2 1 # Bowel Movements 1 1 - Labs CBC & Chem 7: 10/15/24 04:58 10/15/24 04:58 Labs: Abnormal Lab Results - Last 24 Hours (Table) 10/14/24 10/14/24 10/14/24 Range/Units 12:28 17:28 20:41 WBC (4.50-10.00) X 10*3/uL RBC (4.40-5.60) X 10*6/uL Hgb (13.0-17.0) g/dL Hct (39.6-50.0) % Immature Gran # (0.00-0.04) X 10*3/uL Neutrophils # (1.80-7.70) X 10*3/uL Lymphocytes # (0.90-5.00) X 10*3/uL Eosinophils # (0.04-0.35) X 10*3/uL Sodium (135-145) mmol/L Chloride (96-109) mmol/L Anion Gap (4.00-12.00) mmol/L BUN (9.0-27.0) mg/dL Creatinine (0.6-1.5) mg/dL Est GFR (CKD-EPI) (>=60) BUN/Creatinine Ratio (12.00-20.00) Ratio Glucose (70-110) mg/dL POC Glucose (mg/dL) 252 H 316 H 333 H (70-110) mg/dL 10/15/24 10/15/24 10/15/24 Range/Units 04:58 04:58 08:10 WBC 13.11 H (4.50-10.00) X 10*3/uL RBC 3.91 L (4.40-5.60) X 10*6/uL Hgb 11.6 L (13.0-17.0) g/dL Hct 35.0 L (39.6-50.0) % Immature Gran # 0.06 H (0.00-0.04) X 10*3/uL Neutrophils # 12.12 H (1.80-7.70) X 10*3/uL Lymphocytes # 0.66 L (0.90-5.00) X 10*3/uL Eosinophils # 0 L (0.04-0.35) X 10*3/uL Sodium 132 L (135-145) mmol/L Chloride 92 L (96-109) mmol/L Anion Gap 14.30 H (4.00-12.00) mmol/L BUN 48.6 H (9.0-27.0) mg/dL Creatinine 8.7 H (0.6-1.5) mg/dL Est GFR (CKD-EPI) 7 L (>=60) BUN/Creatinine Ratio 5.59 L (12.00-20.00) Ratio Glucose 455 H (70-110) mg/dL POC Glucose (mg/dL) 430 H (70-110) mg/dL Assessment and Plan Assessment: 1. End-stage renal disease [facility] 2. Severe right chest pain, unclear etiology,? Rib fracture, although none seen on CT 3. CKD mineral bone disorder 4. HTN with ESRD 5. Anemai with CKD goal HB 10-11.5 Plan: Hemodialysis TTS Continue with phosphate binders Clear for discharge
[2024-10-15 12:11] LABS: Glucose,Whole Blood 450 mg/dL (70-110)
[2024-10-15] MEDS: INSULIN ASPART (NovoLOG) 100 UNIT/ML VIAL SQ SCH ×2 (12:39→18:21)
[2024-10-15 15:08] LABS: Glucose,Whole Blood 417 mg/dL (70-110)
[2024-10-15] MEDS: INSULIN ASPART (NovoLOG) 100 UNIT/ML VIAL SQ ONE (15:34)
[2024-10-15 17:16] LABS: Glucose,Whole Blood 336 mg/dL (70-110)
[2024-10-15] MEDS: methylPREDNISolone SOD SUCCI 40 MG/ML 1 ML VIAL IV SCH (18:28)
[2024-10-15] MEDS ORDERED: hydrALAZINE HCL 25 MG TAB PO PRN (18:51)
[2024-10-15] MEDS: amLODIPine 5 MG TAB PO SCH (19:06)
[2024-10-15 19:55] LABS: Glucose,Whole Blood 124 mg/dL (70-110)
[2024-10-15] MEDS: INSULIN DETEMIR (LEVEMIR) 100 UNIT/ML SYR SQ SCH (20:13)
[2024-10-15] MEDS: PIPERACILLIN-TAZOBACTAM 3.375 GM in SODIUM CHLORIDE 0.9% 100 ML IVPB SCH (20:19)
[2024-10-15 22:05] LABS: Glucose,Whole Blood 182 mg/dL (70-110)
--- NOTE | 2024-10-15 22:28 | P.CONS ---
History of Present Illness - Reason for Consult Consult date: 10/15/24 High CRP Requesting physician: Devan Adler - Chief Complaint Right lower rib cage pain x days - History of Present Illness Patient is a 54-year-old -[place] male with a past medical history of kidney for diabetes mellitus hypertension hyperlipidemia end-stage renal disease on dialysis through the right subclavian permacatheter over the last 3 weeks as the patient previous left upper extremity fistula stopped working patient presenting to the hospital 3 days ago for evaluation of right-sided lower chest/rib cage pain and this patient apparently did have a syncopal episode 2 days prior to his symptoms started however he was in the bed when he passed out and did not recall falling out of the bed or hitting that area patient was describing the pain to be sharp moderate intensity without radiation did have difficulty eating and deep breath patient did have some nausea but no vomiting no diarrhea or constipation patient on presentation to the hospital did have a low-grade fever of 99.7 degrees for night with another fever of 99.9 on 10/13/2024 but no fever have been recorded since that patient was not tachycardic hypotensive or hypoxic patient also noted to have elevated white count 13.1 today that has prompted this consultation he did have liver enzymes on admission those were negative CRP elevated at 17.2 mL his lipase was normal influenza RSV COVID testing has been negative patient did have a chest abdominal CT no acute abnormality infectious he was considered because of his elevated CRP and white count Review of Systems Positive point and negatives has been mentioned in the HPI, complete review of systems was performed and all other systems are negative Past Medical History Past Medical History: Diabetes Mellitus, Dialysis, Eye Disorder, Fibromyalgia, Hypertension, Pneumonia, Pulmonary Embolus (PE), Renal Disease, Sleep Apnea/CPAP/BIPAP Additional Past Medical History / Comment(s): IDDM type II, neuropathy bilateral feet, chronic renal failure, anemia, chronic lower back and shoulders pain, herniated lumbar disk, glaucoma R eye, carpal tunnel syndrome bilaterally, bronchitis, PAULA with CPAP. Left drop foot, fistula left upper arm, hemodialysis ,, , right displaced rib History of Any Multi-Drug Resistant Organisms: MRSA Year Discovered:: 11/21/12 MDRO Source:: lower back Past Surgical History: Orthopedic Surgery Additional Past Surgical History / Comment(s): Incision and drainage back and R groin r/t abscesses removed, bilateral eye surgery for retinal repair, R eye surgery for glaucoma, fistula-left upper arm, cystoscopy with biopsy, biopsy of right breast lump. Past Anesthesia/Blood Transfusion Reactions: Postoperative Nausea & Vomiting (PONV) Additional Past Anesthesia/Blood Transfusion Reaction / Comm: pt stated has recieved blood transfusions-no known reaction. Smoking Status: Never smoker - Past Family History Brother(s) Family Medical History: Cancer, Deep Vein Thrombosis (DVT) Additional Family Medical History / Comment(s): colon, lung ca Father Family Medical History: Cancer Additional Family Medical History / Comment(s): Bladder cancer in father. Mother Additional Family Medical History / Comment(s): Mother of brain aneurysm Medications and Allergies Home Medications Medication Instructions Recorded Confirmed Type carvediloL [Coreg] 25 mg PO BID PRN 06/27/20 10/12/24 History Calcium Acetate [PhosLo] 1,334 mg PO TID-W/MEALS 03/01/21 10/12/24 History Insulin Aspart [NovoLOG Flexpen] 3 units SQ TID-W/MEALS 07/13/22 10/12/24 History prednisoLONE ACETATE 1% OPHTH 1 drop RIGHT EYE DAILY 09/30/22 10/12/24 History [Pred Forte 1%] Famotidine [Pepcid] 20 mg PO DAILY 07/01/23 10/12/24 History Lidocaine-Prilocaine Cream [Emla 1 applic TOPICAL DAILY PRN 07/01/23 10/12/24 History Cream 2.5%/2.5%] Sevelamer [Renvela] 3,200 mg PO TID-W/MEALS 07/01/23 10/12/24 History Dulaglutide [Trulicity] 3 mg SQ WE 09/21/24 10/12/24 History Folic Acid/Vit B Complex and C 0.8 mg PO DAILY 09/21/24 10/12/24 History [Nephro-Lori Tablet] Insulin Aspart [NovoLOG Flexpen] See Protocol SQ TID-W/MEALS PRN 09/21/24 10/12/24 History carvediloL [Coreg] 6.25 mg PO BID PRN 09/21/24 10/12/24 History Ondansetron Odt [Zofran ODT] 4 mg PO Q8HR PRN #10 tab 09/25/24 10/12/24 Rx HYDROcodone/APAP 5-325MG [[place] 1 tab PO Q6HR PRN 3 Days #12 tab 10/11/24 10/12/24 Rx 5-325] Lactulose 10 gm PO DAILY PRN 10/11/24 10/12/24 History Lidocaine 5% Patch [Lidoderm 5% 1 patch TOPICAL DAILY #30 patch 10/11/24 10/12/24 Rx Patch] Omeprazole [PriLOSEC] 20 mg PO DAILY 10/12/24 10/12/24 History Acetaminophen Tab [Tylenol] 650 mg PO Q6HR PRN tab 10/16/24 Rx Amoxic-Pot Clav 500-125 mg 1 tab PO Q12HR 5 Days #10 tab 10/16/24 Rx [Augmentin 500-125 mg] Insulin Glargine,Hum.rec.anlog 30 unit SQ BID 30 Days #5 each 10/16/24 Rx [Basaglar Kwikpen U-100] Lactulose [Cephulac] 10 gm PO TID PRN #360 ml 10/16/24 Rx amLODIPine [Norvasc] 5 mg PO DAILY #30 tab 10/16/24 Rx hydrALAZINE HCL [Apresoline] 25 mg PO QID PRN #60 tab 10/16/24 Rx Allergies Allergy/AdvReac Type Severity Reaction Status Date / Time peanut Allergy Anaphylaxis Verified 10/12/24 11:51 Physical Exam Vitals: Vital Signs Temp Pulse Pulse Pulse Resp BP Pulse Ox 10/15/24 08:02 88 10/15/24 07:46 84 10/15/24 07:25 98.1 F 88 17 158/81 94 L 10/15/24 02:36 97.8 F 97 18 170/74 94 L 10/15/24 01:51 87 91 16 10/14/24 19:57 87 91 16 10/14/24 19:23 96 10/14/24 19:15 91 10/14/24 18:42 98.2 F 91 16 147/79 96 10/14/24 15:32 96 10/14/24 15:22 96 10/14/24 14:34 98.1 F 99 18 139/71 10/14/24 14:28 98.5 F 97 19 150/80 95 Intake and Output 10/14/24 10/15/2424 22:59 06:59 14:59 Intake Total 0 236 Balance 0 236 Intake: Oral 0 236 Other: # Voids 1 # Bowel Movements 1 GENERAL DESCRIPTION: Middle-aged male up in the chair no distress. No tachypnea or accessory muscle of respiration use. HEENT: Shows Pallor , no scleral icterus. Oral mucous membrane is dry. No pharyngeal erythema or thrush NECK: Trachea central, no thyromegaly. LUNGS: Unlabored breathing. Decreased breath sound the base HEART: S1, S2, regular rate and rhythm. No loud murmur ABDOMEN: Soft, no tenderness , guarding or rigidity, no organomegaly EXTREMITIES: No edema of feet. SKIN: No rash, no masses palpable. NEUROLOGICAL: The patient is awake, alert, oriented x3, mood and affect normal. Results CBC & Chem 7: 10/16/24 04:29 10/16/24 14:28 Labs: Abnormal Lab Results - Last 24 Hours (Table) 10/14/24 10/14/24 10/14/24 Range/Units 12:28 17:28 20:41 WBC (4.50-10.00) X 10*3/uL RBC (4.40-5.60) X 10*6/uL Hgb (13.0-17.0) g/dL Hct (39.6-50.0) % Immature Gran # (0.00-0.04) X 10*3/uL Neutrophils # (1.80-7.70) X 10*3/uL Lymphocytes # (0.90-5.00) X 10*3/uL Eosinophils # (0.04-0.35) X 10*3/uL Sodium (135-145) mmol/L Chloride (96-109) mmol/L Anion Gap (4.00-12.00) mmol/L BUN (9.0-27.0) mg/dL Creatinine (0.6-1.5) mg/dL Est GFR (CKD-EPI) (>=60) BUN/Creatinine Ratio (12.00-20.00) Ratio Glucose (70-110) mg/dL POC Glucose (mg/dL) 252 H 316 H 333 H (70-110) mg/dL 10/15/24 10/15/24 10/15/24 Range/Units 04:58 04:58 08:10 WBC 13.11 H (4.50-10.00) X 10*3/uL RBC 3.91 L (4.40-5.60) X 10*6/uL Hgb 11.6 L (13.0-17.0) g/dL Hct 35.0 L (39.6-50.0) % Immature Gran # 0.06 H (0.00-0.04) X 10*3/uL Neutrophils # 12.12 H (1.80-7.70) X 10*3/uL Lymphocytes # 0.66 L (0.90-5.00) X 10*3/uL Eosinophils # 0 L (0.04-0.35) X 10*3/uL Sodium 132 L (135-145) mmol/L Chloride 92 L (96-109) mmol/L Anion Gap 14.30 H (4.00-12.00) mmol/L BUN 48.6 H (9.0-27.0) mg/dL Creatinine 8.7 H (0.6-1.5) mg/dL Est GFR (CKD-EPI) 7 L (>=60) BUN/Creatinine Ratio 5.59 L (12.00-20.00) Ratio Glucose 455 H (70-110) mg/dL POC Glucose (mg/dL) 430 H (70-110) mg/dL 10/15/24 Range/Units 12:10 WBC (4.50-10.00) X 10*3/uL RBC (4.40-5.60) X 10*6/uL Hgb (13.0-17.0) g/dL Hct (39.6-50.0) % Immature Gran # (0.00-0.04) X 10*3/uL Neutrophils # (1.80-7.70) X 10*3/uL Lymphocytes # (0.90-5.00) X 10*3/uL Eosinophils # (0.04-0.35) X 10*3/uL Sodium (135-145) mmol/L Chloride (96-109) mmol/L Anion Gap (4.00-12.00) mmol/L BUN (9.0-27.0) mg/dL Creatinine (0.6-1.5) mg/dL Est GFR (CKD-EPI) (>=60) BUN/Creatinine Ratio (12.00-20.00) Ratio Glucose (70-110) mg/dL POC Glucose (mg/dL) 450 H (70-110) mg/dL Assessment and Plan (1) SIRS (systemic inflammatory response syndrome) Status: Acute Code(s): R65.10 - SIRS OF NON-INFECTIOUS ORIGIN W/O ACUTE ORGAN DYSFUNCTION SNOMED Code(s): 255369320 (2) Elevated C-reactive protein (CRP) Status: Acute Code(s): R79.82 - ELEVATED C-REACTIVE PROTEIN (CRP) SNOMED Code(s): 165983450532113 Plan: 1patient with elevated CRP this patient also have a low-grade fever and elevated white count in this patient main symptom has been right lower rib cage pain and did have a history of syncope but no history of any fall with initial CT of the chest and abdomen did not show any acute abnormality however there was done without contrast limiting the sensitivity 2-we will check an ultrasound of the liver and gallbladder area 3-follow-up on blood culture and check a procalcitonin level 4-empirically add Zosyn while waiting for the workup to be completed We will follow on clinical condition and cultures to further adjust medication if needed Thank you for this consultation we will follow the patient along with you Dictation was produced using [employer] dictation software. please excuse any grammatical, word or spelling errors. Time with Patient: Greater than 30
--- NOTE | 2024-10-16 05:30 | PN ---
PROGRESS NOTE DATE OF SERVICE: 10/15/2024 SUBJECTIVE: This is a 54-year-old gentleman, who was admitted with severe right-sided chest pain and also had possible pleurisy. The patient is started on IV steroids with significant relief in the pain, but however the blood sugars are seemingly elevated, going up to 450. The COVID-19 is negative. PAST MEDICAL HISTORY: Reviewed. REVIEW OF SYSTEMS: A 14-point review is negative except as mentioned earlier. PAST MEDICAL HISTORY: Reviewed. PHYSICAL EXAMINATION: VITAL SIGNS: Pulse is 88, blood pressure of , respirations 17. HEENT: Conjunctivae normal. NECK: No JVD. CARDIOVASCULAR: S1, S2. RESPIRATIONS: A few scattered rhonchi. ABDOMEN: Soft. NERVOUS SYSTEM: Nonfocal. LABORATORY DATA: Reviewed. ASSESSMENT: 1. Severe right-sided chest pain, possible pleurisy. Pulmonary embolism ruled out. 2. End-stage renal disease, on hemodialysis. 3. Diabetes mellitus type 2. 4. Fibromyalgia. 5. Uncontrolled blood sugars. 6. Hypertension. 7. History of pulmonary embolism. RECOMMENDATIONS: Recommended to continue current medications, continue symptomatic treatment. We will taper the steroids further. Continue with IV antibiotics. The insulin dose was increased. I would add extra insulin at this time. Guarded prognosis. Further recommendations to follow. MMODL / IJN: [id number] / NOEMI
[2024-10-16 06:10] LABS: Glucose,Whole Blood 300 mg/dL (70-110)
--- NOTE | 2024-10-16 08:22 | US ---
EXAMINATION TYPE: US abdomen limited DATE OF EXAM: 10/16/2024 COMPARISON: NONE CLINICAL INDICATION: Male, 54 years old with history of Right upper quadrant pain rule out cholecysti tis; pain limited due to body habitus and bowel gas. TECHNIQUE: Grayscale and color Doppler imaging of the right upper quadrant was performed. FINDINGS: EXAM MEASUREMENTS: Liver Length: 17.9 cm Gallbladder Wall: 0.3 cm CBD: 0.6 cm Right Kidney: 9.0 x 4.6 x 3.2 cm Pancreas: Obscured by bowel gas Liver: Increased attenuation Gallbladder: Contracted no stones seen. Patient states he did not eat. Evidence for sonographic Callejas's sign: no CBD: wnl Right Kidney: Anechoic area lower pole 1.6 x 1.5 x 1.5 cm. IMPRESSION: No evidence for acute abdominal process. Contracted gallbladder no evidence for pericholecystic fluid or wall thickening [facility] Brittney Grajeda, , 10/16/2024 8:20 AM
[2024-10-16 08:49] LABS: Basophils # (A) 0 X 10*3/uL (0.00-0.10); Basophils % (A) 0 %; Eosinophils # (A) 0 X 10*3/uL (0.04-0.35); Eosinophils % (A) 0 %; HCT 35.1 % (39.6-50.0); HGB 11.4 g/dL (13.0-17.0); Lymphocytes # (A) 0.79 X 10*3/uL (0.90-5.00); MCH 28.8 pg (27.0-32.0); MCHC 32.5 g/dL (32.0-37.0); MCV 88.6 FL (80.0-97.0); Mean Platelet Volume 10.8 FL (9.5-12.2); Monocytes # (A) 0.27 X 10*3/uL (0.20-1.00); Monocytes % (A) 1.7 %; NRBC Per 100 WBC 0 X 10*3/uL (0.00-0.01); Neutrophils # (A) 14.52 X 10*3/uL (1.80-7.70); Neutrophils % (A) 92.7 %; Platelet Count 201 X 10*3/uL (140-440); RBC 3.96 X 10*6/uL (4.40-5.60); RDW 11.9 % (11.5-14.5); WBC 15.67 X 10*3/uL (4.50-10.00)
[2024-10-16 09:06] LABS: ALT 9 U/L (10-49); AST 9 U/L (14-35); Albumin 3.6 g/dL (3.8-4.9); Albumin/Globulin Ratio 1.29 Ratio (1.60-3.17); Alkaline Phosphatase 85 U/L (41-126); BUN/Creat Ratio 7.87 Ratio (12.00-20.00); Blood Urea Nitrogen 81.1 mg/dL (9.0-27.0); Calcium 9.1 mg/dL (8.7-10.3); Carbon Dioxide 24.3 mmol/L (21.6-31.8); Chloride 93 mmol/L (96-109); Globulin 2.8 g/dL (1.6-3.3); Glucose 288 mg/dL (70-110); Potassium 5.9 mmol/L (3.5-5.5); Sodium 134 mmol/L (135-145); Total Bilirubin 0.2 mg/dL (0.3-1.2); Total Protein 6.4 g/dL (6.2-8.2)
--- NOTE | 2024-10-16 10:02 | P.PN ---
Subjective Patient is seen in follow-up for end-stage renal disease. Denies chest pain or shortness of breath. Potassium 5.9 today. Vital signs are stable. General: No acute distress. HEENT: Head exam is unremarkable. LUNGS: No audible rhonchi or wheezes. HEART: Rate and Rhythm are regular. ABDOMEN: Obese, nontender. EXTREMITITES: No edema. Objective - Vital Signs Vital signs: Vital Signs Temp 97.9 F 10/16/24 07:00 Pulse 80 10/16/24 08:49 Resp 16 10/16/24 07:00 BP 164/81 10/16/24 07:00 Pulse Ox 95 10/16/24 07:00 FiO2 Intake & Output 10/15/24 10/16/24 10/16/24 18:59 06:59 18:59 Intake Total 236 Balance 236 Intake: Oral 236 Other: # Voids 1 1 - Labs CBC & Chem 7: 10/16/24 04:29 10/16/24 04:29 Labs: Abnormal Lab Results - Last 24 Hours (Table) 10/15/24 10/15/24 10/15/24 Range/Units 04:58 12:10 15:07 WBC (4.50-10.00) X 10*3/uL RBC (4.40-5.60) X 10*6/uL Hgb (13.0-17.0) g/dL Hct (39.6-50.0) % Immature Gran # (0.00-0.04) X 10*3/uL Neutrophils # (1.80-7.70) X 10*3/uL Lymphocytes # (0.90-5.00) X 10*3/uL Eosinophils # (0.04-0.35) X 10*3/uL Sodium 132 L (135-145) mmol/L Potassium (3.5-5.5) mmol/L Chloride 92 L (96-109) mmol/L Anion Gap 14.30 H (4.00-12.00) mmol/L BUN 48.6 H (9.0-27.0) mg/dL Creatinine 8.7 H (0.6-1.5) mg/dL Est GFR (CKD-EPI) 7 L (>=60) BUN/Creatinine Ratio 5.59 L (12.00-20.00) Ratio Glucose 455 H (70-110) mg/dL POC Glucose (mg/dL) 450 H 417 H (70-110) mg/dL Total Bilirubin (0.3-1.2) mg/dL AST (14-35) U/L ALT (10-49) U/L C-Reactive Protein (0.00-0.80) mg/dL Albumin (3.8-4.9) g/dL Albumin/Globulin Ratio (1.60-3.17) Ratio 10/15/24 10/15/24 10/15/24 Range/Units 17:15 19:54 22:04 WBC (4.50-10.00) X 10*3/uL RBC (4.40-5.60) X 10*6/uL Hgb (13.0-17.0) g/dL Hct (39.6-50.0) % Immature Gran # (0.00-0.04) X 10*3/uL Neutrophils # (1.80-7.70) X 10*3/uL Lymphocytes # (0.90-5.00) X 10*3/uL Eosinophils # (0.04-0.35) X 10*3/uL Sodium (135-145) mmol/L Potassium (3.5-5.5) mmol/L Chloride (96-109) mmol/L Anion Gap (4.00-12.00) mmol/L BUN (9.0-27.0) mg/dL Creatinine (0.6-1.5) mg/dL Est GFR (CKD-EPI) (>=60) BUN/Creatinine Ratio (12.00-20.00) Ratio Glucose (70-110) mg/dL POC Glucose (mg/dL) 336 H 124 H 182 H (70-110) mg/dL Total Bilirubin (0.3-1.2) mg/dL AST (14-35) U/L ALT (10-49) U/L C-Reactive Protein (0.00-0.80) mg/dL Albumin (3.8-4.9) g/dL Albumin/Globulin Ratio (1.60-3.17) Ratio 10/16/24 10/16/24 10/16/24 Range/Units 04:29 04:29 06:09 WBC 15.67 H (4.50-10.00) X 10*3/uL RBC 3.96 L (4.40-5.60) X 10*6/uL Hgb 11.4 L (13.0-17.0) g/dL Hct 35.1 L (39.6-50.0) % Immature Gran # 0.09 H (0.00-0.04) X 10*3/uL Neutrophils # 14.52 H (1.80-7.70) X 10*3/uL Lymphocytes # 0.79 L (0.90-5.00) X 10*3/uL Eosinophils # 0 L (0.04-0.35) X 10*3/uL Sodium 134 L (135-145) mmol/L Potassium 5.9 H (3.5-5.5) mmol/L Chloride 93 L (96-109) mmol/L Anion Gap 16.70 H (4.00-12.00) mmol/L BUN 81.1 H (9.0-27.0) mg/dL Creatinine 10.3 H (0.6-1.5) mg/dL Est GFR (CKD-EPI) 5 L (>=60) BUN/Creatinine Ratio 7.87 L (12.00-20.00) Ratio Glucose 288 H (70-110) mg/dL POC Glucose (mg/dL) 300 H (70-110) mg/dL Total Bilirubin 0.2 L (0.3-1.2) mg/dL AST 9 L (14-35) U/L ALT 9 L (10-49) U/L C-Reactive Protein 5.90 H (0.00-0.80) mg/dL Albumin 3.6 L (3.8-4.9) g/dL Albumin/Globulin Ratio 1.29 L (1.60-3.17) Ratio Microbiology - Last 24 Hours (Table) 10/14/24 15:14 Blood Culture - Preliminary Blood Assessment and Plan Plan: Assessment: 1. End-stage renal disease maintained on hemodialysis on Wednesday schedule. 2. Hypertension with chronic kidney disease. Exacerbated by steroids. 3. Hyperkalemia secondary to chronic kidney disease and hyperglycemia. 4. Chronic kidney disease mineral bone disease maintained on phosphate binders. 5. Anemia of chronic kidney disease. Hemoglobin above goal. 6. Diabetes mellitus. 7. Chest pain. Seen by cardiology. No interventions planned at this time. Improved. Plan: Hemodialysis tomorrow. 10 g Lokelma once now. Renal diet. Blood glucose control. Repeat potassium level this afternoon. If remains elevated, will dialyze today.
[2024-10-16] MEDS: SODIUM ZIRCONIUM CYCLOSILICATE 10 GM PACKET PO ONE (11:02)
[2024-10-16 11:59] LABS: Glucose,Whole Blood 320 mg/dL (70-110)
[2024-10-16 15:33] LABS: Glucose,Whole Blood 449 mg/dL (70-110)
[2024-10-16] MEDS: INSULIN ASPART (NovoLOG) 100 UNIT/ML VIAL SQ ONE (16:51)
[2024-10-16 16:58] LABS: Glucose,Whole Blood 425 mg/dL (70-110)
[2024-10-16 17:35] LABS: Glucose,Whole Blood 338 mg/dL (70-110)
[2024-10-16 18:32] VITALS: BP 147/88; PULSE 88; RESP 16; TEMP 97.7
--- NOTE | 2024-10-17 13:12 | P.PN ---
Subjective Progress Note Date: 10/16/24 Principal diagnosis: Reason for follow-up is elevated CRP and leukocytosis Patient is a 54-year-old -Congolese male with a past medical history of kidney for diabetes mellitus hypertension hyperlipidemia end-stage renal disease on dialysis through the right subclavian permacatheter has been admitted to hospital right side chest/rib cage pain CT abdominal and chest did not show any acute abnormality he was noticed to have elevated CRP probably this consultation. On today's evaluation that is 10/16/2024,the patient remains to be afebrile, patient is on room air not requiring supplemental oxygen and denies any shortness of breath mention improvement in the right-sided chest pain no cough no nausea vomiting abdominal pain or diarrhea. Patient white count is up to 15.67 CRP is down to 5.90 procalcitonin 0.48 blood cultures are pending Objective - Vital Signs Vital signs: Vital Signs Temp 97.9 F 10/16/24 07:00 Pulse 80 10/16/24 08:49 Resp 16 10/16/24 07:00 BP 164/81 10/16/24 07:00 Pulse Ox 95 10/16/24 07:00 FiO2 Intake & Output 10/15/24 10/16/24 10/16/24 18:59 06:59 18:59 Intake Total 236 Balance 236 Intake: Oral 236 Other: # Voids 1 1 - Exam GENERAL DESCRIPTION: Middle-age male up in the chair in no distress RESPIRATORY SYSTEM: Unlabored breathing , decreased breath sounds at bases HEART: S1 S2 regular rate and rhythm , ABDOMEN: Soft , no tenderness EXTREMITIES: No edema feet - Labs CBC & Chem 7: 10/16/24 04:29 10/16/24 14:28 Labs: Abnormal Lab Results - Last 24 Hours (Table) 10/15/24 10/15/24 10/15/24 Range/Units 12:10 15:07 17:15 WBC (4.50-10.00) X 10*3/uL RBC (4.40-5.60) X 10*6/uL Hgb (13.0-17.0) g/dL Hct (39.6-50.0) % Immature Gran # (0.00-0.04) X 10*3/uL Neutrophils # (1.80-7.70) X 10*3/uL Lymphocytes # (0.90-5.00) X 10*3/uL Eosinophils # (0.04-0.35) X 10*3/uL Sodium (135-145) mmol/L Potassium (3.5-5.5) mmol/L Chloride (96-109) mmol/L Anion Gap (4.00-12.00) mmol/L BUN (9.0-27.0) mg/dL Creatinine (0.6-1.5) mg/dL Est GFR (CKD-EPI) (>=60) BUN/Creatinine Ratio (12.00-20.00) Ratio Glucose (70-110) mg/dL POC Glucose (mg/dL) 450 H 417 H 336 H (70-110) mg/dL Total Bilirubin (0.3-1.2) mg/dL AST (14-35) U/L ALT (10-49) U/L C-Reactive Protein (0.00-0.80) mg/dL Albumin (3.8-4.9) g/dL Albumin/Globulin Ratio (1.60-3.17) Ratio 10/15/24 10/15/24 10/16/24 Range/Units 19:54 22:04 04:29 WBC 15.67 H (4.50-10.00) X 10*3/uL RBC 3.96 L (4.40-5.60) X 10*6/uL Hgb 11.4 L (13.0-17.0) g/dL Hct 35.1 L (39.6-50.0) % Immature Gran # 0.09 H (0.00-0.04) X 10*3/uL Neutrophils # 14.52 H (1.80-7.70) X 10*3/uL Lymphocytes # 0.79 L (0.90-5.00) X 10*3/uL Eosinophils # 0 L (0.04-0.35) X 10*3/uL Sodium (135-145) mmol/L Potassium (3.5-5.5) mmol/L Chloride (96-109) mmol/L Anion Gap (4.00-12.00) mmol/L BUN (9.0-27.0) mg/dL Creatinine (0.6-1.5) mg/dL Est GFR (CKD-EPI) (>=60) BUN/Creatinine Ratio (12.00-20.00) Ratio Glucose (70-110) mg/dL POC Glucose (mg/dL) 124 H 182 H (70-110) mg/dL Total Bilirubin (0.3-1.2) mg/dL AST (14-35) U/L ALT (10-49) U/L C-Reactive Protein (0.00-0.80) mg/dL Albumin (3.8-4.9) g/dL Albumin/Globulin Ratio (1.60-3.17) Ratio 10/16/24 10/16/24 Range/Units 04:29 06:09 WBC (4.50-10.00) X 10*3/uL RBC (4.40-5.60) X 10*6/uL Hgb (13.0-17.0) g/dL Hct (39.6-50.0) % Immature Gran # (0.00-0.04) X 10*3/uL Neutrophils # (1.80-7.70) X 10*3/uL Lymphocytes # (0.90-5.00) X 10*3/uL Eosinophils # (0.04-0.35) X 10*3/uL Sodium 134 L (135-145) mmol/L Potassium 5.9 H (3.5-5.5) mmol/L Chloride 93 L (96-109) mmol/L Anion Gap 16.70 H (4.00-12.00) mmol/L BUN 81.1 H (9.0-27.0) mg/dL Creatinine 10.3 H (0.6-1.5) mg/dL Est GFR (CKD-EPI) 5 L (>=60) BUN/Creatinine Ratio 7.87 L (12.00-20.00) Ratio Glucose 288 H (70-110) mg/dL POC Glucose (mg/dL) 300 H (70-110) mg/dL Total Bilirubin 0.2 L (0.3-1.2) mg/dL AST 9 L (14-35) U/L ALT 9 L (10-49) U/L C-Reactive Protein 5.90 H (0.00-0.80) mg/dL Albumin 3.6 L (3.8-4.9) g/dL Albumin/Globulin Ratio 1.29 L (1.60-3.17) Ratio Microbiology - Last 24 Hours (Table) 10/14/24 15:14 Blood Culture - Preliminary Blood Assessment and Plan (1) SIRS (systemic inflammatory response syndrome) Status: Acute Code(s): R65.10 - SIRS OF NON-INFECTIOUS ORIGIN W/O ACUTE ORGAN DYSFUNCTION SNOMED Code(s): 733429962 (2) Elevated C-reactive protein (CRP) Status: Acute Code(s): R79.82 - ELEVATED C-REACTIVE PROTEIN (CRP) SNOMED Code(s): 113831022238188 Plan: 1patient with elevated CRP this patient also have a low-grade fever and elevated white count in this patient main symptom has been right lower rib cage pain and did have a history of syncope but no history of any fall with initial CT of the chest and abdomen did not show any acute abnormality however there was done without contrast limiting the sensitivity 2- ultrasound of the liver and gallbladder area did not show any acute abnormality 3- patient blood culture currently pending, procalcitonin level is at 0.48 CRP is down 4-patient apparently has been refusing his antibiotic though has been encouraged to continue till the cultures are finalized Dictation was produced using [employer] dictation software. please excuse any grammatical, word or spelling errors. Time with Patient: Less than 30
[2024-10-18] MEDS ORDERED: NON FORMULARY DRUG (Dulaglutide [Trulicity] 3 MG/0.5 ML Each) SQ SCH (09:00)
--- NOTE | 2024-10-20 09:38 | P.DS ---
Providers Date of admission: 10/13/24 15:26 Expected date of discharge: 10/16/24 Attending physician: Stewart Dyer MD Consults: 10/12/24 11:56 Consult Physician Urgent Consulting Provider: Elke Quijano Consult Reason/Comments: Chest pain Do you want consulting provider notified?: Yes Consult Physician Urgent Consulting Provider: Michelle Medeiros Consult Reason/Comments: Dialysis patient Do you want consulting provider notified?: Yes 10/14/24 14:53 Consult Physician Routine Consulting Provider: Cristian Garcia Consult Reason/Comments: high crp Do you want consulting provider notified?: Yes Primary care physician: Sharri Zuni Hospital Course: Final diagnosis Severe right sided chest pain, likely pleurisy musculoskeletal, pulmonary embolism ruled out End-stage renal disease, on hemodialysis Diabetes mellitus, type II, uncontrolled with hyperglycemia History of fibromyalgia Hypertension Obesity with a BMI of 39.3 History of PE GI prophylaxis DVT prophylaxis Full code Discharge disposition Patient is being discharged in a stable condition with guarded prognosis to home. Patient will follow-up with Dr. Gio Adler in the outpatient setting upon discharge. Patient is to continue with hemodialysis as scheduled and recommend outpatient follow-up. Total time taken is greater than 35 minutes. Hospital course This is a 54-year-old male who was recently admitted with severe right-sided chest pain and ACS ruled out along with PE status post VQ scan. Patient is maintained on hemodialysis and tolerating dialysis continues with the right chest wall port. Blood sugars uncontrolled as well recommend tighter glycemic control with adjustments of insulins and outpatient follow-up with primary care provider to adjust. Recommend endocrine outpatient follow-up as well. Patient reports to feeling improved and is keen on going home today. Potassium mildly elevated at 5.6 and will receive hemodialysis prior to discharge. Outpatient follow-up with nephrology this week. Please refer to other consultation notes for further HPI. Currently no reports of chest pain, shortness of breath, or palpitations. Patient is afebrile. No reports of nausea or vomiting and patient is tolerating diet. Patient will be discharged home today. Guarded prognosis and high risk for readmissions Physical exam: Gen: This is a 54-year-old male who is awake, alert and oriented x 3, well- developed, appears elderly, obese HEENT: Head is atraumatic, normocephalic. Pupils equal, round. Sclerae is anicteric. NECK: Supple. No JVD. No lymphadenopathy. No thyromegaly. LUNGS: Diminished breath sounds bilaterally otherwise clear to auscultation. No wheezes or rhonchi. No intercostal retractions. HEART: S1, S2 are muffled ABDOMEN: Soft. Obese. Bowel sounds are present. No masses. No tenderness. EXTREMITIES: No pedal edema. No calf tenderness. NEUROLOGICAL: Patient is awake, alert and oriented x3. Cranial nerves 2 through 12 are grossly intact. Please refer to medication reconciliation sheet for a list of medications. The impression and plan of care has been dictated by Zora Booth, Nurse Practitioner as directed. Dr. Vitor MD I have performed a history and examination and MDM of this patient, discussed the same with the dictator, and agree with the dictator's assessment and plan as written ,documented as a scribe. Based on total visit time, I have performed more than 50% of the visit. Patient Condition at Discharge: Good Plan - Discharge Summary Discharge Rx Participant: Yes New Discharge Prescriptions: New hydrALAZINE HCL [Apresoline] 25 mg PO QID PRN #60 tab PRN Reason: Blood Pressure - High Lactulose [Cephulac] 10 gm PO TID PRN #360 ml PRN Reason: Constipation amLODIPine [Norvasc] 5 mg PO DAILY #30 tab Acetaminophen Tab [Tylenol] 650 mg PO Q6HR PRN tab PRN Reason: Mild Pain Or Fever > 100.5 Amoxic-Pot Clav 500-125 mg [Augmentin 500-125 mg] 1 tab PO Q12HR 5 Days #10 tab Continue carvediloL [Coreg] 25 mg PO BID PRN PRN Reason: Blood Pressure - High Calcium Acetate [PhosLo] 1,334 mg PO TID-W/MEALS prednisoLONE ACETATE 1% OPHTH [Pred Forte 1%] 1 drop RIGHT EYE DAILY Lidocaine-Prilocaine Cream [Emla Cream 2.5%/2.5%] 1 applic TOPICAL DAILY PRN PRN Reason: PORT ACCESS Famotidine [Pepcid] 20 mg PO DAILY Sevelamer [Renvela] 3,200 mg PO TID-W/MEALS Insulin Aspart [NovoLOG Flexpen] See Protocol SQ TID-W/MEALS PRN PRN Reason: high blood sugar Dulaglutide [Trulicity] 3 mg SQ WE Ondansetron Odt [Zofran ODT] 4 mg PO Q8HR PRN #10 tab PRN Reason: Nausea Lactulose 10 gm PO DAILY PRN PRN Reason: Constipation HYDROcodone/APAP 5-325MG [[place] 5-325] 1 tab PO Q6HR PRN 3 Days #12 tab PRN Reason: Severe Breakthrough Pain Insulin Aspart [NovoLOG Flexpen] 3 units SQ TID-W/MEALS carvediloL [Coreg] 6.25 mg PO BID PRN PRN Reason: Blood Pressure - High Folic Acid/Vit B Complex and C [Nephro-Lori Tablet] 0.8 mg PO DAILY Lidocaine 5% Patch [Lidoderm 5% Patch] 1 patch TOPICAL DAILY #30 patch Omeprazole [PriLOSEC] 20 mg PO DAILY Changed Insulin Glargine,Hum.rec.anlog [Basaglar Kwikpen U-100] 30 unit SQ BID 30 Days #5 each Discharge Medication List carvediloL [Coreg] 25 mg PO BID PRN 06/27/20 [History] Calcium Acetate [PhosLo] 1,334 mg PO TID-W/MEALS 03/01/21 [History] Insulin Aspart [NovoLOG Flexpen] 3 units SQ TID-W/MEALS 07/13/22 [History] prednisoLONE ACETATE 1% OPHTH [Pred Forte 1%] 1 drop RIGHT EYE DAILY 09/30/22 [History] Famotidine [Pepcid] 20 mg PO DAILY 07/01/23 [History] Lidocaine-Prilocaine Cream [Emla Cream 2.5%/2.5%] 1 applic TOPICAL DAILY PRN 07/01/23 [History] Sevelamer [Renvela] 3,200 mg PO TID-W/MEALS 07/01/23 [History] Dulaglutide [Trulicity] 3 mg SQ WE 09/21/24 [History] Folic Acid/Vit B Complex and C [Nephro-Lori Tablet] 0.8 mg PO DAILY 09/21/24 [History] Insulin Aspart [NovoLOG Flexpen] See Protocol SQ TID-W/MEALS PRN 09/21/24 [History] carvediloL [Coreg] 6.25 mg PO BID PRN 09/21/24 [History] Ondansetron Odt [Zofran ODT] 4 mg PO Q8HR PRN #10 tab 09/25/24 [Rx] HYDROcodone/APAP 5-325MG [[place] 5-325] 1 tab PO Q6HR PRN 3 Days #12 tab 10/11/24 [Rx] Lactulose 10 gm PO DAILY PRN 10/11/24 [History] Lidocaine 5% Patch [Lidoderm 5% Patch] 1 patch TOPICAL DAILY #30 patch 10/11/24 [Rx] Omeprazole [PriLOSEC] 20 mg PO DAILY 10/12/24 [History] Acetaminophen Tab [Tylenol] 650 mg PO Q6HR PRN tab 10/16/24 [Rx] Amoxic-Pot Clav 500-125 mg [Augmentin 500-125 mg] 1 tab PO Q12HR 5 Days #10 tab 10/16/24 [Rx] Insulin Glargine,Hum.rec.anlog [Basaglar Kwikpen U-100] 30 unit SQ BID 30 Days #5 each 10/16/24 [Rx] Lactulose [Cephulac] 10 gm PO TID PRN #360 ml 10/16/24 [Rx] amLODIPine [Norvasc] 5 mg PO DAILY #30 tab 10/16/24 [Rx] hydrALAZINE HCL [Apresoline] 25 mg PO QID PRN #60 tab 10/16/24 [Rx] Follow up Appointment(s)/Referral(s): [facility] [NON-STAFF] - As Needed (DIALYSIS - [id number]) Sharri Mckeon MD [Primary Care Provider] - 1-2 days Lewis Werner DO [STAFF PHYSICIAN] - 1 Week Ambulatory/Diagnostic Orders: Complete Blood Count w/diff [LAB.AMB] Time Frame: 2 Days, Location: None Selected Activity/Diet/Wound Care/Special Instructions: Okay to discharge once cleared by nephrology Activity limited until follow-up Follow-up with primary care provider on discharge Follow-up with nephrology outpatient Continue monitoring blood sugars and continue with increase in insulin, monitor Accu-Cheks and keep a diary of all readings for primary follow-up Repeat labs in 2 to 3 days Discharge Disposition: HOME SELF-CARE
== END 2024-10-16 18:53 | disposition home or self-care (01) | DRG 193 ==
LOC: EC 07:50 → 6NMEDSUR 11:55 → OBSVTOIN 10-13 15:26
PROVIDERS: ADMIT Internal Medicine; ATTEND Internal Medicine
PROC: 5A1D70Z Performance of Urinary Filtration, Intermittent, Less than 6 Hours Per Day (ICD-10-PCS; principal; 2024-10-13)
DX: R09.1 Pleurisy (principal); N18.6 End stage renal disease; I12.0 Hypertensive chronic kidney disease with stage 5 chronic kidney disease or end stage renal disease; D63.1 Anemia in chronic kidney disease; E11.22 Type 2 diabetes mellitus with diabetic chronic kidney disease; E11.65 Type 2 diabetes mellitus with hyperglycemia; E78.5 Hyperlipidemia, unspecified; E87.5 Hyperkalemia; T38.0X5A Adverse effect of glucocorticoids and synthetic analogues, initial encounter; I95.1 Orthostatic hypotension; M89.8X9 Other specified disorders of bone, unspecified site; I95.3 Hypotension of hemodialysis; M79.7 Fibromyalgia; X58.XXXA Exposure to other specified factors, initial encounter; Z79.4 Long term (current) use of insulin; Z99.2 Dependence on renal dialysis; Z91.010 Allergy to peanuts; Z86.711 Personal history of pulmonary embolism
CPT/HCPCS: 36415; 71045; 71250; 74150; 76705; 78580; 80048; 80053; 82150; 82550; 83605; 83690; 83735; 84100; 84132; 84145; 84484; 85025; 85610; 85652; 85730; 86140; 87040; 87636; 90935; 93005; 93306; 94640; 96374; 96375; 96376; 99285

== ENCOUNTER 2024-11-09 07:48 | Observation (INO) | payer MEDICARE, OTHER ==
--- NOTE | 2024-11-09 08:09 | ED ---
General Adult HPI - General Chief complaint: Recheck/Abnormal Lab/Rx Stated complaint: cath issue Time Seen by Provider: 11/09/24 07:50 Source: patient, RN notes reviewed Mode of arrival: ambulatory Limitations: no limitations - History of Present Illness Initial comments: 54-year-old male presents emergency department with chief complaint of nonfunctioning dialysis catheter. Patient had a failure of his fistula had a catheter placed per Dr. Rome states that he only had a slow partial run on Wednesday states they were unable to run today. Patient was sent in from dialysis center. Patient has no complaints of dyspnea. Patient states he has dialysis Wednesday. - Related Data Home Medications Medication Instructions Recorded Confirmed carvediloL [Coreg] 25 mg PO BID PRN 06/27/20 11/09/24 Calcium Acetate [PhosLo] 1,334 mg PO TID-W/MEALS 03/01/21 11/09/24 prednisoLONE ACETATE 1% OPHTH 1 drop RIGHT EYE DAILY 09/30/22 11/09/24 [Pred Forte 1%] Famotidine [Pepcid] 20 mg PO DAILY 07/01/23 11/09/24 Lidocaine-Prilocaine Cream [Emla 1 applic TOPICAL DAILY PRN 07/01/23 11/09/24 Cream 2.5%/2.5%] Sevelamer [Renvela] 3,200 mg PO TID-W/MEALS 07/01/23 11/09/24 Dulaglutide [Trulicity] 3 mg SQ WE 09/21/24 11/09/24 Folic Acid/Vit B Complex and C 0.8 mg PO DAILY 09/21/24 11/09/24 [Nephro-Lori Tablet] carvediloL [Coreg] 6.25 mg PO BID PRN 09/21/24 11/09/24 Omeprazole [PriLOSEC] 20 mg PO DAILY 10/12/24 11/09/24 Insulin Glargine,Hum.rec.anlog 30 units SQ DAILY 11/09/24 11/09/24 [Lantus Solostar Pen] Insulin Lispro [humaLOG Kwikpen] 3 unit SQ AC-TID 11/09/24 11/09/24 Insulin Lispro [humaLOG Kwikpen] See Protocol SQ AC-TID 11/09/24 11/09/24 Lidocaine 5% Patch [Lidoderm 5% 1 patch TRANSDERM DAILY 11/09/24 11/09/24 Patch] Previous Rx's Medication Instructions Recorded Ondansetron Odt [Zofran ODT] 4 mg PO Q8HR PRN #10 tab 09/25/24 HYDROcodone/APAP 5-325MG [[place] 1 tab PO Q6HR PRN 3 Days #12 tab 10/11/24 5-325] Acetaminophen Tab [Tylenol] 650 mg PO Q6HR PRN tab 10/16/24 Lactulose [Cephulac] 10 gm PO TID PRN #360 ml 10/16/24 amLODIPine [Norvasc] 5 mg PO DAILY #30 tab 10/16/24 hydrALAZINE HCL [Apresoline] 25 mg PO QID PRN #60 tab 10/16/24 Allergies Allergy/AdvReac Type Severity Reaction Status Date / Time peanut Allergy Anaphylaxis Verified 11/09/24 11:03 Review of Systems ROS Statement: Those systems with pertinent positive or pertinent negative responses have been documented in the HPI. ROS Other: All systems not noted in ROS Statement are negative. Past Medical History Past Medical History: Diabetes Mellitus, Dialysis, Eye Disorder, Fibromyalgia, Hypertension, Pneumonia, Pulmonary Embolus (PE), Renal Disease, Sleep Apnea/CPAP/BIPAP Additional Past Medical History / Comment(s): IDDM type II, neuropathy bilateral feet, chronic renal failure, anemia, chronic lower back and shoulders pain, herniated lumbar disk, glaucoma R eye, carpal tunnel syndrome bilaterally, bronchitis, PAULA with CPAP. Left drop foot, fistula left upper arm, hemodialysis ,, , right displaced rib History of Any Multi-Drug Resistant Organisms: MRSA Date of last positivie culture/infection: 11/21/12 MDRO Source:: lower back Past Surgical History: Orthopedic Surgery Additional Past Surgical History / Comment(s): Incision and drainage back and R groin r/t abscesses removed, bilateral eye surgery for retinal repair, R eye surgery for glaucoma, fistula-left upper arm, cystoscopy with biopsy, biopsy of right breast lump. Past Anesthesia/Blood Transfusion Reactions: Postoperative Nausea & Vomiting (PONV) Additional Past Anesthesia/Blood Transfusion Reaction / Comment(s): pt stated has recieved blood transfusions-no known reaction. Past Psychological History: Anxiety Smoking Status: Never smoker Past Alcohol Use History: None Reported Past Drug Use History: None Reported - Past Family History Brother(s) Family Medical History: Cancer, Deep Vein Thrombosis (DVT) Additional Family Medical History / Comment(s): colon, lung ca Father Family Medical History: Cancer Additional Family Medical History / Comment(s): Bladder cancer in father. Mother Additional Family Medical History / Comment(s): Mother of brain aneurysm General Exam Limitations: no limitations General appearance: alert, in no apparent distress Head exam: Present: atraumatic, normocephalic, normal inspection Eye exam: Present: normal appearance, PERRL, EOMI. Absent: scleral icterus, conjunctival injection, periorbital swelling ENT exam: Present: normal exam, mucous membranes moist Neck exam: Present: normal inspection, full ROM. Absent: tenderness, meningismus, lymphadenopathy Respiratory exam: Present: normal lung sounds bilaterally. Absent: respiratory distress, wheezes, rales, rhonchi, stridor Cardiovascular Exam: Present: regular rate, normal rhythm, normal heart sounds. Absent: systolic murmur, diastolic murmur, rubs, gallop, clicks GI/Abdominal exam: Present: soft, normal bowel sounds. Absent: distended, tenderness, guarding, rebound, rigid Course Vital Signs 11/09/24 11/09/24 11/09/24 07:49 08:51 13:04 Temperature 98.6 F Pulse Rate 106 H 89 91 Respiratory 18 16 18 Rate Blood Pressure 165/78 151/84 143/79 O2 Sat by Pulse 100 99 100 Oximetry Medical Decision Making - Medical Decision Making Was pt. sent in by a medical professional or institution (HAIM Vivar, [employer]IONS ARCHITECT, urgent care, hospital, or [place] health care facility...) When possible be specific @ -Dialysis center Did you speak to anyone other than the patient for history (EMS, parent, family, police, friend...)? What history was obtained from this source @ -No Did you review nursing and triage notes (agree or disagree)? Why? @ -I reviewed and agree with nursing and triage notes Were old charts reviewed (outside hosp., previous admission, EMS record, old EKG, old radiological studies, urgent care reports/EKG's, [place] health care facility records)? Report findings @ -No old charts were reviewed Differential Diagnosis (chest pain, altered mental status, abdominal pain women, abdominal pain men, vaginal bleeding, weakness, fever, dyspnea, syncope, headache, dizziness, GI bleed, back pain, seizure, CVA, palpatations, mental health, musculoskeletal)? @ -ESRD on dialysis, catheter complication EKG interpreted by me (3pts min.). @ -None X-rays interpreted by me (1pt min.). @ -None done CT interpreted by me (1pt min.). @ -None done U/S interpreted by me (1pt. min.). @ -None done What testing was considered but not performed or refused? (CT, X-rays, U/S, labs)? Why? @ -None What meds were considered but not given or refused? Why? @ -None Did you discuss the management of the patient with other professionals (professionals i.e. , PA, SEC[employer] ARCHITECT, lab, RT, psych nurse, high school social science teacher, provider scribe, teacher, aoc director combat operations officer, caser)? Give summary @ -Vascular regarding access, nephrology, hemostatic and Dr. Sheet for admission Was smoking cessation discussed for >3mins.? @ -No Was critical care preformed (if so, how long)? @ -No Were there social determinants of health that impacted care today? How? (Homelessness, low income, unemployed, alcoholism, drug addiction, transportation, low edu. Level, literacy, decrease access to med. care, half-way, rehab)? @ -No Was there de-escalation of care discussed even if they declined (Discuss DNR or withdrawal of care, Hospice)? DNR status @ -No What co-morbidities impacted this encounter? (DM, HTN, Smoking, COPD, CAD, Cancer, CVA, ARF, Chemo, Hep., AIDS, mental health diagnosis, sleep apnea, morbid obesity)? @ -None Was patient admitted / discharged? Hospital course, mention meds given and route, prescriptions, significant lab abnormalities, going to OR and other pertinent info. @ -Admitted for observation pending tPA that was instilled in permacath. If no improvement change of access by vascular Undiagnosed new problem with uncertain prognosis? @ -No Drug Therapy requiring intensive monitoring for toxicity (Heparin, Nitro, Insulin, Cardizem)? @ -No Were any procedures done? @ -No Diagnosis/symptom? @ -Dialysis catheter malfunction, ESRD on dialysis Acute, or Chronic, or Acute on Chronic? @ -Acute Uncomplicated (without systemic symptoms) or Complicated (systemic symptoms)? @ -Complicated Side effects of treatment? @ -No Exacerbation, Progression, or Severe Exacerbation? @ -No Poses a threat to life or bodily function? How? (Chest pain, [place], [place], pneumonia, PE, COPD, DKA, ARF, appy, cholecystitis, CVA, Diverticulitis, Homicidal, Suicidal, threat to staff... and all critical care pts) @ -No - Lab Data Result diagrams: 11/09/24 08:17 11/09/24 08:17 Lab Results 11/09/24 11/09/24 Range/Units 08:17 08:17 WBC 4.1 (3.8-10.6) k/uL RBC 3.48 L (4.30-5.90) m/uL Hgb 10.6 L (13.0-17.5) gm/dL Hct 31.4 L (39.0-53.0) % MCV 90.4 (80.0-100.0) fL MCH 30.4 (25.0-35.0) pg MCHC 33.7 (31.0-37.0) g/dL RDW 14.2 (11.5-15.5) % Plt Count 172 (150-450) k/uL MPV 8.6 Neutrophils % 53 % Lymphocytes % 37 % Monocytes % 5 % Eosinophils % 3 % Basophils % 0 % Neutrophils # 2.2 (1.3-7.7) k/uL Lymphocytes # 1.5 (1.0-4.8) k/uL Monocytes # 0.2 (0-1.0) k/uL Eosinophils # 0.1 (0-0.7) k/uL Basophils # 0.0 (0-0.2) k/uL Sodium 138 (137-145) mmol/L Potassium 4.8 (3.5-5.1) mmol/L Chloride 104 (98-107) mmol/L Carbon Dioxide 24 (22-30) mmol/L Anion Gap 10 mmol/L BUN 52 H (9-20) mg/dL Creatinine 10.36 H* (0.66-1.25) mg/dL Est GFR (CKD-EPI)AfAm 6 (>60 ml/min/1.73 sqM) Est GFR (CKD-EPI)NonAf 5 (>60 ml/min/1.73 sqM) Glucose 154 H (74-99) mg/dL Calcium 8.9 (8.4-10.2) mg/dL Magnesium 2.1 (1.6-2.3) mg/dL Total Bilirubin 0.7 (0.2-1.3) mg/dL AST 21 (17-59) U/L ALT 13 (4-49) U/L Alkaline Phosphatase 63 (38-126) U/L Total Protein 6.4 (6.3-8.2) g/dL Albumin 3.8 (3.5-5.0) g/dL Disposition Clinical Impression: Complication, dialysis catheter clot or failure, ESRD needing dialysis Disposition: ADMITTED IP TO THIS HOSP Condition: Fair Time of Disposition: 08:49
[2024-11-09 08:35] LABS: Basophils % (A) 0 %; Eosinophils # (A) 0.1 k/uL (0-0.7); Eosinophils % (A) 3 %; HCT 31.4 % (39.0-53.0); HGB 10.6 gm/dL (13.0-17.5); Lymphocytes # (A) 1.5 k/uL (1.0-4.8); Lymphocytes % (A) 37 %; MCH 30.4 pg (25.0-35.0); MCHC 33.7 g/dL (31.0-37.0); MCV 90.4 fL (80.0-100.0); Mean Platelet Volume 8.6; Monocytes # (A) 0.2 k/uL (0-1.0); Monocytes % (A) 5 %; Neutrophils # (A) 2.2 k/uL (1.3-7.7); Neutrophils % (A) 53 %; Platelet Count 172 k/uL (150-450); RBC 3.48 m/uL (4.30-5.90); RDW 14.2 % (11.5-15.5); WBC 4.1 k/uL (3.8-10.6)
[2024-11-09 08:49] LABS: ALT 13 U/L (4-49); AST 21 U/L (17-59); African American GFR (CKD) 6 (>60 ml/min/1.73 sqM); Albumin 3.8 g/dL (3.5-5.0); Alkaline Phosphatase 63 U/L (38-126); Anion Gap 10 mmol/L; Blood Urea Nitrogen 52 mg/dL (9-20); Calcium 8.9 mg/dL (8.4-10.2); Carbon Dioxide 24 mmol/L (22-30); Chloride 104 mmol/L (98-107); Glucose 154 mg/dL (74-99); Magnesium 2.1 mg/dL (1.6-2.3); Non-African American GFR(CKD) 5 (>60 ml/min/1.73 sqM); Potassium 4.8 mmol/L (3.5-5.1); Sodium 138 mmol/L (137-145); Total Bilirubin 0.7 mg/dL (0.2-1.3); Total Protein 6.4 g/dL (6.3-8.2)
[2024-11-09] MEDS ORDERED: NALOXONE 0.4 MG/ML 1 ML VIAL IV PRN (08:50)
[2024-11-09] MEDS ORDERED: ACETAMINOPHEN TAB 325 MG TAB PO PRN ×2 (08:50→12:36)
--- NOTE | 2024-11-09 09:20 | P.GSCN ---
History of Present Illness Consult date: 11/09/24 Reason for Consult: Nonfunctioning HD catheter Requesting physician: Wes Sun History of present illness: This a pleasant 54-year-old -[place] male with end-stage renal disease on hemodialysis who is scheduled Wednesday, and Saturdays. Patient went to dialysis this morning however they were not able to do dialysis. Apparently they did push Cathflo and allowed it to dwell for 45 minutes but was still unable to perform dialysis. Patient was instructed come to the emergency department and vascular surgery was consulted. Patient has a history of a left upper extremity AV fistula that was thrombosed and he underwent tunnel catheter with Dr. Rome on 09/22/2024. Patient denies any shortness of breath, chest pain, redness or swelling around catheter site. States he was in [place] recently and went to dialysis and they had problems with access and he had to push tPA and remove some clots. He again was in [place] following that and required Cathflo as well at that time was able to get dialysis however did not run that well he states. Review of Systems A 14 point review systems was completed all pertinent positives and negatives as stated in the HPI. Past Medical History Past Medical History: Diabetes Mellitus, Dialysis, Eye Disorder, Fibromyalgia, Hypertension, Pneumonia, Pulmonary Embolus (PE), Renal Disease, Sleep Apnea/CPAP/BIPAP Additional Past Medical History / Comment(s): IDDM type II, neuropathy bilateral feet, chronic renal failure, anemia, chronic lower back and shoulders pain, herniated lumbar disk, glaucoma R eye, carpal tunnel syndrome bilaterally, bronchitis, PAULA with CPAP. Left drop foot, fistula left upper arm, hemodialysis ,, , right displaced rib History of Any Multi-Drug Resistant Organisms: MRSA Year Discovered:: 11/21/12 MDRO Source:: lower back Past Surgical History: Orthopedic Surgery Additional Past Surgical History / Comment(s): Incision and drainage back and R groin r/t abscesses removed, bilateral eye surgery for retinal repair, R eye surgery for glaucoma, fistula-left upper arm, cystoscopy with biopsy, biopsy of right breast lump. Past Anesthesia/Blood Transfusion Reactions: Postoperative Nausea & Vomiting (PONV) Additional Past Anesthesia/Blood Transfusion Reaction / Comm: pt stated has recieved blood transfusions-no known reaction. Past Psychological History: Anxiety Smoking Status: Never smoker Past Alcohol Use History: None Reported Past Drug Use History: None Reported - Past Family History Brother(s) Family Medical History: Cancer, Deep Vein Thrombosis (DVT) Additional Family Medical History / Comment(s): colon, lung ca Father Family Medical History: Cancer Additional Family Medical History / Comment(s): Bladder cancer in father. Mother Additional Family Medical History / Comment(s): Mother of brain aneurysm Medications and Allergies Home Medications Medication Instructions Recorded Confirmed Type carvediloL [Coreg] 25 mg PO BID PRN 06/27/20 10/12/24 History Calcium Acetate [PhosLo] 1,334 mg PO TID-W/MEALS 03/01/21 10/12/24 History Insulin Aspart [NovoLOG Flexpen] 3 units SQ TID-W/MEALS 07/13/22 10/12/24 Histo ry prednisoLONE ACETATE 1% OPHTH 1 drop RIGHT EYE DAILY 09/30/22 10/12/24 History [Pred Forte 1%] Famotidine [Pepcid] 20 mg PO DAILY 07/01/23 10/12/24 History Lidocaine-Prilocaine Cream [Emla 1 applic TOPICAL DAILY PRN 07/01/23 10/12/24 History Cream 2.5%/2.5%] Sevelamer [Renvela] 3,200 mg PO TID-W/MEALS 07/01/23 10/12/24 History Dulaglutide [Trulicity] 3 mg SQ WE 09/21/24 10/12/24 History Folic Acid/Vit B Complex and C 0.8 mg PO DAILY 09/21/24 10/12/24 History [Nephro-Lori Tablet] Insulin Aspart [NovoLOG Flexpen] See Protocol SQ TID-W/MEALS PRN 09/21/24 10/12/24 History carvediloL [Coreg] 6.25 mg PO BID PRN 09/21/24 10/12/24 History Ondansetron Odt [Zofran ODT] 4 mg PO Q8HR PRN #10 tab 09/25/24 10/12/24 Rx HYDROcodone/APAP 5-325MG [[place] 1 tab PO Q6HR PRN 3 Days #12 tab 10/11/24 10/12/24 Rx 5-325] Lactulose 10 gm PO DAILY PRN 10/11/24 10/12/24 History Lidocaine 5% Patch [Lidoderm 5% 1 patch TOPICAL DAILY #30 patch 10/11/24 10/12/24 Rx Patch] Omeprazole [PriLOSEC] 20 mg PO DAILY 10/12/24 10/12/24 History Acetaminophen Tab [Tylenol] 650 mg PO Q6HR PRN tab 10/16/24 Rx Amoxic-Pot Clav 500-125 mg 1 tab PO Q12HR 5 Days #10 tab 10/16/24 Rx [Augmentin 500-125 mg] Insulin Glargine,Hum.rec.anlog 30 unit SQ BID 30 Days #5 each 10/16/24 Rx [Basaglar Kwikpen U-100] Lactulose [Cephulac] 10 gm PO TID PRN #360 ml 10/16/24 Rx amLODIPine [Norvasc] 5 mg PO DAILY #30 tab 10/16/24 Rx hydrALAZINE HCL [Apresoline] 25 mg PO QID PRN #60 tab 10/16/24 Rx Allergies Allergy/AdvReac Type Severity Reaction Status Date / Time peanut Allergy Anaphylaxis Verified 11/09/24 07:53 Surgical - Exam Vital Signs Temp Pulse Resp BP Pulse Ox 98.6 F 106 H 18 165/78 100 11/09/24 07:49 11/09/24 07:49 11/09/24 07:49 11/09/24 07:49 11/09/24 07:49 General appearance: The patient is alert, oriented, appears in no acute distress. HET: Head is normocephalic and atraumatic. Pupils are equal and reactive. Neck: Supple. Right IJ tunneled catheter clean dry and intact. Heart: Regular. Lungs: Equal expansion, normal respiratory effort. Abdomen: Soft, nontender, nondistended. Extremities: Normal skin color and turgor. Neurological: No focal deficits. Strength and sensation are grossly intact. Results - Labs 11/09/24 08:17 11/09/24 08:17 Assessment and Plan Assessment: 1. Apply 2 mg Cathflo each port allowed to dwell overnight 2. N.p.o. after midnight 3. Dialysis nurse to hemodialysis tomorrow per nephrology 4. Patient will be tentatively scheduled for right tunneled catheter exchange tomorrow in the operating room Thank you for this consultation, we will continue to follow. The impression and plan of care has been dictated as directed. Dr. Rome I performed a history and examination of this patient, discussed the same with the dictator. I agree with the dictator's note ,documented as a scribe. Any additional findings or plans will be noted.
[2024-11-09] MEDS: ALTEPLASE 2 MG VIAL (CATHFLO) IV ONE ×2 (09:33→09:34)
[2024-11-09] MEDS ORDERED: ONDANSETRON ODT 4 MG TAB PO PRN (12:36)
[2024-11-09] MEDS ORDERED: LIDOCAINE-PRILOCAINE 2.5-2.5% CREAM 5 GM TUBE TOPICAL PRN (12:36)
[2024-11-09] MEDS ORDERED: LACTULOSE 20 GM/30 ML CUP PO PRN (12:36)
--- NOTE | 2024-11-09 12:46 | P.HPIM ---
History of Present Illness 53-year-old male with schedule hemodialysis Wednesday and Saturdays was sent in here because of a nonfunctional dialysis catheter and overnight was unable to complete hemodialysis. Patient had a tunneled catheter as his left up per extremity AV fistula is thrombosed and nonfunctional. Vascular surgery evaluated the patient and they are planning on doing Flow and if it does not work in next 24 hours send if they are unable to dialyze the patient tunneled catheter will be exchanged. Patient blood pressure slightly high patient states his blood pressure is usually low thus why he does not take his amlodipine and hydralazine at home. Patient denied any other symptoms otherwise REVIEW OF SYSTEMS: All other systems are negative except those mentioned in the HPI PHYSICAL EXAMINATION: GENERAL: The patient is alert and oriented x3, not in any acute distress. Well developed, well nourished. Obese HEENT: Pupils are round and equally reacting to light. EOMI. No scleral icterus. No conjunctival pallor. Normocephalic, atraumatic. No pharyngeal erythema. No thyromegaly. CARDIOVASCULAR: S1 and S2 present. No murmurs, rubs, or gallops. PULMONARY: Chest is clear to auscultation, no wheezing or crackles. ABDOMEN: Soft, nontender, nondistended, normoactive bowel sounds. No palpable organomegaly. MUSCULOSKELETAL: No joint swelling or deformity. EXTREMITIES: No cyanosis, clubbing, or pedal edema. NEUROLOGICAL: Gross neurological examination did not reveal any focal deficits. SKIN: No rashes. Assessment and plan -Nonfunctional dialysis tunneled catheter: Plan as mentioned above Flow today and if patient cannot undergo dialysis tunneled catheter will be exchanged -End-stage renal disease hemodialysis dependent -Fibromyalgia -Hypertension management as mentioned above will continue on Norvasc but will hold off on hydralazine patient blood pressure slightly elevated -Obesity with sleep apnea continue with CPAP machine -History of PE presently not on any anticoagulation patient will be started on DVT prophylaxis with heparin -Type 2 diabetes mellitus for which patient uses Trulicity which will be c ontinued along with sliding scale insulin and long-acting insulin Past Medical History Past Medical History: Diabetes Mellitus, Dialysis, Eye Disorder, Fibromyalgia, Hypertension, Pneumonia, Pulmonary Embolus (PE), Renal Disease, Sleep Apnea/CPAP/BIPAP Additional Past Medical History / Comment(s): IDDM type II, neuropathy bilateral feet, chronic renal failure, anemia, chronic lower back and shoulders pain, herniated lumbar disk, glaucoma R eye, carpal tunnel syndrome bilaterally, bronchitis, PAULA with CPAP. Left drop foot, fistula left upper arm, hemodialysis ,, SA, right displaced rib History of Any Multi-Drug Resistant Organisms: MRSA Date of last positivie culture/infection: 11/21/12 MDRO Source:: lower back Past Surgical History: Orthopedic Surgery Additional Past Surgical History / Comment(s): Incision and drainage back and R groin r/t abscesses removed, bilateral eye surgery for retinal repair, R eye surgery for glaucoma, fistula-left upper arm, cystoscopy with biopsy, biopsy of right breast lump. Past Anesthesia/Blood Transfusion Reactions: Postoperative Nausea & Vomiting (PONV) Additional Past Anesthesia/Blood Transfusion Reaction / Comment(s): pt stated has recieved blood transfusions-no known reaction. Past Psychological History: Anxiety Smoking Status: Never smoker Past Alcohol Use History: None Reported Past Drug Use History: None Reported - Past Family History Brother(s) Family Medical History: Cancer, Deep Vein Thrombosis (DVT) Additional Family Medical History / Comment(s): colon, lung ca Father Family Medical History: Cancer Additional Family Medical History / Comment(s): Bladder cancer in father. Mother Additional Family Medical History / Comment(s): Mother of brain aneurysm Medications and Allergies Home Medications Medication Instructions Recorded Confirmed Type carvediloL [Coreg] 25 mg PO BID PRN 06/27/20 11/09/24 History Calcium Acetate [PhosLo] 1,334 mg PO TID-W/MEALS 03/01/21 11/09/24 History prednisoLONE ACETATE 1% OPHTH 1 drop RIGHT EYE DAILY 09/30/22 11/09/24 History [Pred Forte 1%] Famotidine [Pepcid] 20 mg PO DAILY 07/01/23 11/09/24 History Lidocaine-Prilocaine Cream [Emla 1 applic TOPICAL DAILY PRN 07/01/23 11/09/24 History Cream 2.5%/2.5%] Sevelamer [Renvela] 3,200 mg PO TID-W/MEALS 07/01/23 11/09/24 History Dulaglutide [Trulicity] 3 mg SQ WE 09/21/24 11/09/24 History Folic Acid/Vit B Complex and C 0.8 mg PO DAILY 09/21/24 11/09/24 History [Nephro-Lori Tablet] carvediloL [Coreg] 6.25 mg PO BID PRN 09/21/24 11/09/24 History Ondansetron Odt [Zofran ODT] 4 mg PO Q8HR PRN #10 tab 09/25/24 11/09/24 Rx HYDROcodone/APAP 5-325MG [[place] 1 tab PO Q6HR PRN 3 Days #12 tab 10/11/24 11/09/24 Rx 5-325] Omeprazole [PriLOSEC] 20 mg PO DAILY 10/12/24 11/09/24 History Acetaminophen Tab [Tylenol] 650 mg PO Q6HR PRN tab 10/16/24 11/09/24 Rx Lactulose [Cephulac] 10 gm PO TID PRN #360 ml 10/16/24 11/09/24 Rx amLODIPine [Norvasc] 5 mg PO DAILY #30 tab 10/16/24 11/09/24 Rx hydrALAZINE HCL [Apresoline] 25 mg PO QID PRN #60 tab 10/16/24 11/09/24 Rx Insulin Glargine,Hum.rec.anlog 30 units SQ DAILY 11/09/24 11/09/24 History [Lantus Solostar Pen] Insulin Lispro [humaLOG Kwikpen] 3 unit SQ AC-TID 11/09/24 11/09/24 History Insulin Lispro [humaLOG Kwikpen] See Protocol SQ AC-TID 11/09/24 11/09/24 Histo ry Lidocaine 5% Patch [Lidoderm 5% 1 patch TRANSDERM DAILY 11/09/24 11/09/24 History Patch] Allergies Allergy/AdvReac Type Severity Reaction Status Date / Time peanut Allergy Anaphylaxis Verified 11/09/24 11:03 Physical Exam Vitals: Vital Signs Temp Pulse Resp BP Pulse Ox 11/09/24 08:51 89 16 151/84 99 11/09/24 07:49 98.6 F 106 H 18 165/78 100 Intake and Output 11/08/24 11/09/24 11/09/24 22:59 06:59 14:59 Other: Weight 137.8 kg Results CBC & Chem 7: 11/09/24 08:17 11/09/24 08:17 Labs: Abnormal Lab Results - Last 24 Hours (Table) 11/09/24 11/09/24 Range/Units 08:17 08:17 RBC 3.48 L (4.30-5.90) m/uL Hgb 10.6 L (13.0-17.5) gm/dL Hct 31.4 L (39.0-53.0) % BUN 52 H (9-20) mg/dL Creatinine 10.36 H* (0.66-1.25) mg/dL Glucose 154 H (74-99) mg/dL
[2024-11-09] MEDS: amLODIPine 5 MG TAB PO SCH (13:08)
--- NOTE | 2024-11-09 13:42 | P.NPCON ---
History of Present Illness - Reason for Consult end stage renal disease - History of Present Illness patient is a 54-year-old male with end-stage renal disease on hemodialysis on a every stay Wednesday schedule. Patient is sent in from the dialysis unit due to malfunctioning dialysis catheter. He did have TPA placed for about 45 minutes and there was no improvement noted. Patient has been evaluated by vascular surgery and TPA has been replaced to do well overnight. No complaints of shortness of breath Serum potassium at 4.8. No other major complaints. Past Medical History Past Medical History: Diabetes Mellitus, Dialysis, Eye Disorder, Fibromyalgia, Hypertension, Pneumonia, Pulmonary Embolus (PE), Renal Disease, Sleep Apnea/CPAP/BIPAP Additional Past Medical History / Comment(s): IDDM type II, neuropathy bilateral feet, chronic renal failure, anemia, chronic lower back and shoulders pain, herniated lumbar disk, glaucoma R eye, carpal tunnel syndrome bilaterally, bronchitis, PAULA with CPAP. Left drop foot, fistula left upper arm, hemodialysis ,, , right displaced rib History of Any Multi-Drug Resistant Organisms: MRSA Date of last positivie culture/infection: 11/21/12 MDRO Source:: lower back Past Surgical History: Orthopedic Surgery Additional Past Surgical History / Comment(s): Incision and drainage back and R groin r/t abscesses removed, bilateral eye surgery for retinal repair, R eye surgery for glaucoma, fistula-left upper arm, cystoscopy with biopsy, biopsy of right breast lump. Past Anesthesia/Blood Transfusion Reactions: Postoperative Nausea & Vomiting (PONV) Additional Past Anesthesia/Blood Transfusion Reaction / Comment(s): pt stated has recieved blood transfusions-no known reaction. Past Psychological History: Anxiety Smoking Status: Never smoker Past Alcohol Use History: None Reported Past Drug Use History: None Reported - Past Family History Brother(s) Family Medical History: Cancer, Deep Vein Thrombosis (DVT) Additional Family Medical History / Comment(s): colon, lung ca Father Family Medical History: Cancer Additional Family Medical History / Comment(s): Bladder cancer in father. Mother Additional Family Medical History / Comment(s): Mother of brain aneurysm Medications and Allergies Home Medications Medication Instructions Recorded Confirmed Type carvediloL [Coreg] 25 mg PO BID PRN 06/27/20 11/09/24 History Calcium Acetate [PhosLo] 1,334 mg PO TID-W/MEALS 03/01/21 11/09/24 History prednisoLONE ACETATE 1% OPHTH 1 drop RIGHT EYE DAILY 09/30/22 11/09/24 History [Pred Forte 1%] Famotidine [Pepcid] 20 mg PO DAILY 07/01/23 11/09/24 History Lidocaine-Prilocaine Cream [Emla 1 applic TOPICAL DAILY PRN 07/01/23 11/09/24 History Cream 2.5%/2.5%] Sevelamer [Renvela] 3,200 mg PO TID-W/MEALS 07/01/23 11/09/24 History Dulaglutide [Trulicity] 3 mg SQ WE 09/21/24 11/09/24 History Folic Acid/Vit B Complex and C 0.8 mg PO DAILY 09/21/24 11/09/24 History [Nephro-Lori Tablet] carvediloL [Coreg] 6.25 mg PO BID PRN 09/21/24 11/09/24 History Ondansetron Odt [Zofran ODT] 4 mg PO Q8HR PRN #10 tab 09/25/24 11/09/24 Rx HYDROcodone/APAP 5-325MG [[place] 1 tab PO Q6HR PRN 3 Days #12 tab 10/11/24 11/09/24 Rx 5-325] Omeprazole [PriLOSEC] 20 mg PO DAILY 10/12/24 11/09/24 History Acetaminophen Tab [Tylenol] 650 mg PO Q6HR PRN tab 10/16/24 11/09/24 Rx Lactulose [Cephulac] 10 gm PO TID PRN #360 ml 10/16/24 11/09/24 Rx amLODIPine [Norvasc] 5 mg PO DAILY #30 tab 10/16/24 11/09/24 Rx hydrALAZINE HCL [Apresoline] 25 mg PO QID PRN #60 tab 10/16/24 11/09/24 Rx Insulin Glargine,Hum.rec.anlog 30 units SQ DAILY 11/09/24 11/09/24 History [Lantus Solostar Pen] Insulin Lispro [humaLOG Kwikpen] 3 unit SQ AC-TID 11/09/24 11/09/24 History Insulin Lispro [humaLOG Kwikpen] See Protocol SQ AC-TID 11/09/24 11/09/24 History Lidocaine 5% Patch [Lidoderm 5% 1 patch TRANSDERM DAILY 11/09/24 11/09/24 History Patch] Allergies Allergy/AdvReac Type Severity Reaction Status Date / Time peanut Allergy Anaphylaxis Verified 11/09/24 11:03 Physical Exam Vitals: Vital Signs Temp Pulse Resp BP Pulse Ox 11/09/24 13:04 91 18 143/79 100 11/09/24 08:51 89 16 151/84 99 11/09/24 07:49 98.6 F 106 H 18 165/78 100 Intake and Output 11/08/24 11/09/24 11/09/24 22:59 06:59 14:59 Other: Weight 137.8 kg patient is awake, comfortable, alert oriented 3 Examination of the heart S1 and S2 Examination of the lungs bilateral breath sounds are heard Abdomen is soft nontender Examination lower extremity shows no significant edema GEOCHEMIST exam grossly intact Results - Lab Results Most recent lab results Calcium 8.9 mg/dL (8.4-10.2) 11/09/24 08:17 Magnesium 2.1 mg/dL (1.6-2.3) 11/09/24 08:17 11/09/24 08:17 11/09/24 08:17 Assessment and Plan Assessment: 1. End-stage renal disease on hemodialysis on Wednesday schedule 2. Malfunctioning dialysis catheter with plans to do dwell TPA overnight and possible new catheter placement if no improvement 3. Anemia of chronic disease 4. Thrombosed left arm AV fistula Plan: hemodialysis in a.m. Resume phosphate binders Resume home medications.
[2024-11-09] MEDS: HEPARIN SODIUM,PORCINE 5,000 UNIT/ML 1 ML VIAL SQ SCH (15:08)
[2024-11-09 17:21] LABS: Glucose,Whole Blood 107 mg/dL (70-110)
[2024-11-09] MEDS: INSULIN ASPART (NovoLOG) 100 UNIT/ML VIAL SQ SCH ×2 (17:38)
[2024-11-09] MEDS: CALCIUM ACETATE 667 MG TAB PO SCH (18:20)
[2024-11-09] MEDS: SEVELAMER 800 MG TAB PO SCH (18:30)
[2024-11-09 19:42] LABS: Glucose,Whole Blood 147 mg/dL (70-110)
[2024-11-10 05:57] LABS: Glucose,Whole Blood 106 mg/dL (70-110)
[2024-11-10] MEDS: INSULIN DETEMIR (LEVEMIR) 100 UNIT/ML SYR SQ SCH (06:39)
[2024-11-10] MEDS: PANTOPRAZOLE 40 MG TABLET PO SCH (06:42)
[2024-11-10 08:45] LABS: BUN/Creat Ratio 4.79 Ratio (12.00-20.00); Blood Urea Nitrogen 53.7 mg/dL (9.0-27.0); Glucose 103 mg/dL (70-110)
[2024-11-10 08:46] LABS: Calcium 8.8 mg/dL (8.7-10.3); Carbon Dioxide 23.2 mmol/L (21.6-31.8); Chloride 104 mmol/L (96-109); Potassium 4.9 mmol/L (3.5-5.5); Sodium 141 mmol/L (135-145)
[2024-11-10] MEDS: prednisoLONE ACETATE 1% OPHTH DROPS 5 ML BTL RIGHT EYE SCH (09:40)
[2024-11-10] MEDS: LIDOCAINE 4% PATCH TOPICAL SCH (09:40)
[2024-11-10] MEDS: FAMOTIDINE 20 MG TAB PO SCH (09:40)
--- NOTE | 2024-11-10 10:05 | P.PN ---
Subjective Progress Note Date: 11/10/24 Principal diagnosis: Malfunctioning HD catheter Patient seen and examined this morning as a follow-up. Dialysis nurse at the bedside and states that venous port is good, arterial port was"sucking at the wall" but believes that patient will be able to undergo dialysis. He is sc heduled to get dialysis early afternoon. Sodium 141 potassium 4.9 BUN 53.7 creatinine 11.2 calcium 8.8 Objective - Vital Signs Vital signs: Vital Signs Temp 98 F 11/10/24 07:00 Pulse 76 11/10/24 07:00 Resp 16 11/10/24 07:00 BP 143/79 11/10/24 07:00 Pulse Ox 100 11/10/24 07:00 FiO2 Intake & Output 11/09/24 11/10/24 11/10/24 18:59 06:59 18:59 Intake Total 480 Balance 480 Weight 137.8 kg 137.8 kg Intake: Oral 480 Other: # Voids 1 - Exam General appearance: The patient is alert, oriented, appears in no acute distress. HET: Head is normocephalic and atraumatic. Neck: Supple. Right IJ tunnel catheter with dressing clean dry and intact. Heart: Regular. Lungs: Equal expansion, normal respiratory effort. Abdomen: Soft, nontender, nondistended. Extremities: Normal skin color and turgor. Neurological: No focal deficits. Strength and sensation are grossly intact. - Labs CBC & Chem 7: 11/09/24 08:17 11/10/24 05:44 Labs: Abnormal Lab Results - Last 24 Hours (Table) 11/09/24 11/09/24 11/09/24 Range/Units 08:17 08:17 19:41 RBC 3.48 L (4.30-5.90) m/uL Hgb 10.6 L (13.0-17.5) gm/dL Hct 31.4 L (39.0-53.0) % BUN 52 H (9-20) mg/dL Creatinine 10.36 H* (0.66-1.25) mg/dL Glucose 154 H (74-99) mg/dL POC Glucose (mg/dL) 147 H (70-110) mg/dL Assessment and Plan Assessment: 1. Malfunctioning hemodialysis tunneled catheter 2. End-stage renal disease requiring hemodialysis Plan: 1. Try hemodialysis today as ordered by nephrology 2. Patient can have renal diet 3. If tunneled dialysis catheter continues to malfunction will plan for tunnel catheter exchange likely tomorrow Thank you for this consultation, we will continue to follow. The impression and plan of care has been dictated as directed. Dr. Rome I performed a history and examination of this patient, discussed the same with the dictator. I agree with the dictator's note ,documented as a scribe. Any additional findings or plans will be noted.
--- NOTE | 2024-11-10 11:37 | P.PN ---
Subjective 53-year-old male with schedule hemodialysis Wednesday and Saturdays was sent in here because of a nonfunctional dialysis catheter and overnight was unable to complete hemodialysis. Patient had a tunneled catheter as his left upper extremity AV fistula is thrombosed and nonfunctional. Vascular surgery evaluated the patient and they are planning on doing Flow and if it does not work in next 24 hours send if they are unable to dialyze the patient tunneled catheter will be exchanged. Patient blood pressure slightly high patient states his blood pressure is usually low thus why he does not take his amlodipine and hydralazine at home. Patient denied any other symptoms otherwise 11/10/2024 Patient undergo hemodialysis today, if that does not work patient will need a tunneled catheter. PHYSICAL EXAMINATION: GENERAL: The patient is alert and oriented x3, not in any acute distress. Well developed, well nourished. Obese HEENT: Pupils are round and equally reacting to light. EOMI. No scleral icterus. No conjunctival pallor. Normocephalic, atraumatic. No pharyngeal erythema. No thyromegaly. CARDIOVASCULAR: S1 and S2 present. No murmurs, rubs, or gallops. PULMONARY: Chest is clear to auscultation, no wheezing or crackles. ABDOMEN: Soft, nontender, nondistended, normoactive bowel sounds. No palpable organomegaly. MUSCULOSKELETAL: No joint swelling or deformity. EXTREMITIES: No cyanosis, clubbing, or pedal edema. NEUROLOGICAL: Gross neurological examination did not reveal any focal deficits. SKIN: No rashes. Assessment and plan -Nonfunctional dialysis tunneled catheter: Plan as mentioned above Flow today and if patient cannot undergo dialysis tunneled catheter will be exchanged -End-stage renal disease hemodialysis dependent -Fibromyalgia -Hypertension management as mentioned above will continue on Norvasc but will hold off on hydralazine patient blood pressure slightly elevated -Obesity with sleep apnea continue with CPAP machine -History of PE presently not on any anticoagulation patient will be started on DVT prophylaxis with heparin -Type 2 diabetes mellitus for which patient uses Trulicity which will be continued along with sliding scale insulin and long-acting insulin Objective - Vital Signs Vital signs: Vital Signs Temp 98 F 11/10/24 07:00 Pulse 76 11/10/24 07:00 Resp 16 11/10/24 07:00 BP 143/79 11/10/24 07:00 Pulse Ox 100 11/10/24 07:00 FiO2 Intake & Output 11/09/24 11/10/24 11/10/24 18:59 06:59 18:59 Intake Total 480 Balance 480 Weight 137.8 kg 137.8 kg Intake: Oral 480 Other: # Voids 1 - Labs CBC & Chem 7: 11/09/24 08:17 11/10/24 05:44 Labs: Abnormal Lab Results - Last 24 Hours (Table) 11/09/24 11/10/24 Range/Units 19:41 05:44 Anion Gap 13.80 H (4.00-12.00) mmol/L BUN 53.7 H (9.0-27.0) mg/dL Creatinine 11.2 H (0.6-1.5) mg/dL Est GFR (CKD-EPI) 5 L (>=60) BUN/Creatinine Ratio 4.79 L (12.00-20.00) Ratio POC Glucose (mg/dL) 147 H (70-110) mg/dL
[2024-11-10 12:20] VITALS: BMI 38.9
[2024-11-10 12:28] LABS: Glucose,Whole Blood 118 mg/dL (70-110)
[2024-11-10] MEDS ORDERED: HEPARIN SODIUM 1,000 UN/ML (10ML VL) ONE (13:20)
[2024-11-10 17:28] LABS: Glucose,Whole Blood 108 mg/dL (70-110)
[2024-11-10 17:35] LABS: Hepatitis B Surface Antigen Nonreactive (Nonreactive)
--- NOTE | 2024-11-10 19:41 | P.PN ---
Subjective Patient is seen for follow-up for end-stage renal disease. Status post tPA which dwelled overnight. Scheduled for hemodialysis today. If the catheter remains nonfunctional patient will have a new dialysis catheter placed. No significant complaints Objective - Vital Signs Vital signs: Vital Signs Temp 97.9 F 11/10/24 19:16 Pulse 77 11/10/24 19:16 Resp 18 11/10/24 19:16 BP 146/80 11/10/24 19:16 Pulse Ox 99 11/10/24 19:16 FiO2 Intake & Output 11/10/24 11/10/24 11/11/24 06:59 18:59 06:59 Intake Total 480 400 Output Total 2600 Balance 480 -2200 Weight 137.8 kg 137.8 kg Intake: Oral 480 Hemodialysis 400 Output: Hemodialysis 1500 Hemodialysis Net Amount 1100 Other: # Voids 1 2 - Exam Patient is awake alert oriented x 3 Comfortable no acute distress Walking in the hallway No significant edema noted CUSTOMER SERVICE COORDINATOR exam grossly intact - Labs CBC & Chem 7: 11/09/24 08:17 11/10/24 05:44 Labs: Abnormal Lab Results - Last 24 Hours (Table) 11/09/24 11/10/24 11/10/24 Range/Units 19:41 05:44 05:44 Anion Gap 13.80 H (4.00-12.00) mmol/L BUN 53.7 H (9.0-27.0) mg/dL Creatinine 11.2 H (0.6-1.5) mg/dL Est GFR (CKD-EPI) 5 L (>=60) BUN/Creatinine Ratio 4.79 L (12.00-20.00) Ratio POC Glucose (mg/dL) 147 H (70-110) mg/dL Hep Bs Antibody A (Negative) 11/10/24 Range/Units 12:24 Anion Gap (4.00-12.00) mmol/L BUN (9.0-27.0) mg/dL Creatinine (0.6-1.5) mg/dL Est GFR (CKD-EPI) (>=60) BUN/Creatinine Ratio (12.00-20.00) Ratio POC Glucose (mg/dL) 118 H (70-110) mg/dL Hep Bs Antibody (Negative) Assessment and Plan Assessment: 1. End-stage renal disease on hemodialysis on Wednesday schedule 2. Malfunctioning dialysis catheter status post tPA which dwelled overnight. Plans for new catheter placement if this catheter remains nonfunctional 3. Anemia of chronic disease 4. Thrombosed left arm AV fistula Plan: hemodialysis today Continue phosphate binders
[2024-11-10 20:22] LABS: Glucose,Whole Blood 100 mg/dL (70-110)
[2024-11-11 06:06] LABS: Glucose,Whole Blood 162 mg/dL (70-110)
[2024-11-11] MEDS: LIDOCAINE 1% INJ 10MG/ML (20 ML MDV) SQ ONE (08:15)
[2024-11-11] MEDS: fentaNYL (PF) 50 MCG/ML 2 ML AMP IVP ONE (08:15)
[2024-11-11] MEDS: MIDAZOLAM 2 MG/2 ML VIAL IVP ONE ×2 (08:15→08:23)
--- NOTE | 2024-11-11 08:46 | P.OP ---
Date of Procedure: 11/11/24 Description of Procedure: Preoperative Diagnosis: Malfunctioning tunneled catheter ESRD Postoperative Diagnosis: Same Procedure(s) Performed: Right tunneled catheter removal and replacement with 23cm catheter utilizing flouroscopic assistance Moderate conscious sedation with IV administration per certified RN for 14 minutes Anesthesia: local, iv sedation Surgeon: Wild Estimated Blood Loss (ml): 10cc Pathology: none sent Condition: stable Indications for Procedure: 54-year-old male with history of end-stage renal disease on hemodialysis via a right-sided tunneled catheter presents due to reported malfunctioning of tunneled catheter at dialysis center. He presents for removal and replacement of tunnel catheter. Description of Procedure: Operative narrative: After written and informed consent was obtained and risks, benefits and competitions were described the patient was brought to the Insurance Assistant and laid in a supine position. The area of the right neck and existing catheter was prepped and draped in the usual sterile fashion. Timeout was performed in normal fashion. Local anesthetic was infused overlying the tunnel catheter at the neck and small incision was created over the existing catheter and dissection was carried down to the catheter which was dissected free. Catheter was then cut and the proximal aspect was accessed with a Glidewire under direct visualization of fluoroscopy. Existing catheter was then removed. Large dilator was then placed under visualization.. Attention was then placed to the chest wall catheter which was dissected free to the cuff and removed in normal fashion. A small incision was then created on the lateral aspect of the chest wall at a different location from previous. A 23 centimeter hemodialysis catheter was then tunneled from the chest wall to the neck. Breakaway sheath was placed into the internal jugular vein under direct visualization of fluoroscopy. The catheter was then placed within the break away sheath the sheath was removed. Aspirated and flushed easily. The catheter was sutured in place. The neck incision was reapproximated with interrupted sutures of 3-0 Vicryl. Dressings were placed the patient tolerated the procedure well was transferred to recovery in stable condition.
--- NOTE | 2024-11-11 09:29 | IR ---
EXAMINATION TYPE: IR cvc insert central tunneled DATE OF EXAM: 11/11/2024 8:52 AM COMPARISON: Pre Operative Images if available both CT/MRI or plain film CLINICAL INDICATION: Male, 54 years old with history of hemodialysis catheter exchagne, 0.1min fluoro , [id number]; TECHNIQUE: IR cvc insert central tunneled, multiple fluoroscopic images provided for procedure. Total fluoroscopy time: 0.1 seconds Total submitted images to PACS: 10 DAP: 23.01 mGym2 Gycm2 uGym2 cGycm2 or equivalent. FINDINGS: Fluoroscopic imaging for Port-A-Cath insertion no evidence for pneumothorax. Multilevel degeneration changes of the spine. IMPRESSION: 1. No evidence for intraoperative complication. 2. Please see the operative/procedural note for further details. [facility], , 11/11/2024 9:27 AM
--- NOTE | 2024-11-11 10:14 | XR ---
EXAMINATION TYPE: XR chest 1V portable DATE OF EXAM: 11/11/2024 9:43 AM COMPARISON: Chest radiographs from10/13/2024 CLINICAL INDICATION: Male, 54 years old with history of hemodialysis catheter placement.; [facility] TECHNIQUE: XR chest 1V portable Frontal view of the chest. FINDINGS: Lungs/Pleura: There is no evidence of pleural effusion, focal consolidation, or pneumothorax. Pulmonary vascularity: Unremarkable. Heart/mediastinum: Cardiomediastinal silhouette is unremarkable. Musculoskeletal: No acute osseous pathology. Other findings: None Lines/Tubes: Right internal jugular central venous catheter with distal tip at the cavoatrial junction. IMPRESSION: No acute cardiopulmonary disease/process. [facility], , 11/11/2024 10:12 AM
[2024-11-11 10:56] VITALS: TEMP 97.6
[2024-11-11 11:54] LABS: Glucose,Whole Blood 105 mg/dL (70-110)
[2024-11-11] MEDS: HEPARIN SODIUM 1,000 UN/ML (10ML VL) MISCELLANE ONE (12:23)
--- NOTE | 2024-11-11 13:21 | P.PN ---
Subjective Patient is seen for follow-up for end-stage renal disease. status post new right IJ permacath. Patient is seen on hemodialysis. Tolerating treatment well. No significant complaints Objective - Vital Signs Vital signs: Vital Signs Temp 97.6 F 11/11/24 09:06 Pulse 72 11/11/24 02:51 Resp 18 11/11/24 02:51 BP 139/78 11/11/24 10:22 Pulse Ox 97 11/11/24 10:22 FiO2 Intake & Output 11/10/24 11/11/24 11/11/24 18:59 06:59 18:59 Intake Total 400 Output Total 2600 Balance -2200 Weight 137.8 kg Intake: Hemodialysis 400 Output: Hemodialysis 1500 Hemodialysis Net Amount 1100 Other: # Voids 2 2 - Exam Patient is awake alert oriented x 3 Comfortable no acute distress seen on hemodialysis No significant edema noted GLASS BLOCK BENDER exam grossly intact - Labs CBC & Chem 7: 11/09/24 08:17 11/10/24 05:44 Labs: Abnormal Lab Results - Last 24 Hours (Table) 11/10/24 11/11/24 Range/Units 05:44 06:04 POC Glucose (mg/dL) 162 H (70-110) mg/dL Hep Bs Antibody A (Negative) Assessment and Plan Assessment: 1. End-stage renal disease on hemodialysis on Wednesday schedule 2. Malfunctioning dialysis catheter status post new right IJ catheter placement 3. Anemia of chronic disease 4. Thrombosed left arm AV fistula Plan: okay for discharge from nephrology standpoint post hemodialysis today.
[2024-11-11] MEDS: HYDROcodone/APAP 5-325MG 1 EACH TAB PO PRN (14:06)
[2024-11-11 15:03] VITALS: RESP 16
[2024-11-11 15:19] VITALS: BP 124/80; PULSE 93
--- NOTE | 2024-11-12 20:30 | P.DS ---
Providers Date of admission: 11/09/24 08:45 Attending physician: Devan Adler Consults: 11/09/24 08:02 Consult Physician Urgent Consulting Provider: Farnaz Rome Consult Reason/Comments: Nonfunctioning catheter Do you want consulting provider notified?: Already Contacted 11/09/24 08:50 Consult Physician Routine Consulting Provider: Michelle Medeiros Consult Reason/Comments: Dialysis Do you want consulting provider notified?: Yes Primary care physician: Sharri Powersrain Hospital Course: Final Diagnosis -Nonfunctional dialysis tunneled catheter: Plan as mentioned above Flow today and if patient cannot undergo dialysis tunneled catheter will be exchanged -End-stage renal disease hemodialysis dependent -Fibromyalgia -Hypertension management as mentioned above will continue on Norvasc but will hold off on hydralazine patient blood pressure slightly elevated -Obesity with sleep apnea continue with CPAP machine -History of PE presently not on any anticoagulation patient will be started on DVT prophylaxis with heparin -Type 2 diabetes mellitus for which patient uses Trulicity which will be continued along with sliding scale insulin and long-acting insulin Discharge Disposition Patient stable for discharge home. He underwent successful changing of his right sided hemodialysis catheter. Hospital Course 53-year-old male with schedule hemodialysis Wednesday and Saturdays was sent in here because of a nonfunctional dialysis catheter and overnight was unable to complete hemodialysis. Patient had a tunneled catheter as his left upper extremity AV fistula is thrombosed and nonfunctional. Vascular surgery evaluated the patient and they are planning on doing Flow and if it does not work in next 24 hours send if they are unable to dialyze the patient tunneled catheter will be exchanged. Patient blood pressure slightly high patient states his blood pressure is usually low thus why he does not take his amlodipine and hydralazine at home. Patient again was unable to undergo hemodialysis secondary to failure of his dialysis access. Vascular surgery was consulted and patient underwent a right tunnel catheter removal and replacement with [address] Rome. Patient tolerated the procedure well and he will successfully dialyzed afterwards. He is not have any acute complaints no shortness of breath or chest pain. He was cleared by nephrology for discharge home and he will continue on his same schedule Wednesday. Please see medication reconciliation for a list of current medications. Thank you for allowing us to participate in the care of this patient. The impression and plan of care has been dictated by Sadie Isabel, Nurse Practitioner as directed. Dr. Lee MD I have performed a history and physical examination and medical decision making of this patient, discussed the same with the dictator, and agree with the dictators assessment and plan as written, documented as a scribe. Based on total visit time, I have performed more than 50% of this visit. Patient Condition at Discharge: Fair Plan - Discharge Summary New Discharge Prescriptions: Continue carvediloL [Coreg] 25 mg PO BID PRN PRN Reason: Blood Pressure - High Calcium Acetate [PhosLo] 1,334 mg PO TID-W/MEALS prednisoLONE ACETATE 1% OPHTH [Pred Forte 1%] 1 drop RIGHT EYE DAILY Lidocaine-Prilocaine Cream [Emla Cream 2.5%/2.5%] 1 applic TOPICAL DAILY PRN PRN Reason: PORT ACCESS Famotidine [Pepcid] 20 mg PO DAILY Sevelamer [Renvela] 3,200 mg PO TID-W/MEALS Dulaglutide [Trulicity] 3 mg SQ WE Ondansetron Odt [Zofran ODT] 4 mg PO Q8HR PRN #10 tab PRN Reason: Nausea HYDROcodone/APAP 5-325MG [Galena 5-325] 1 tab PO Q6HR PRN 3 Days #12 tab PRN Reason: Severe Breakthrough Pain hydrALAZINE HCL [Apresoline] 25 mg PO QID PRN #60 tab PRN Reason: Blood Pressure - High Insulin Glargine,Hum.rec.anlog [Lantus Solostar Pen] 30 units SQ DAILY Insulin Lispro [humaLOG Kwikpen] See Protocol SQ AC-TID Insulin Lispro [humaLOG Kwikpen] 3 unit SQ AC-TID carvediloL [Coreg] 6.25 mg PO BID PRN PRN Reason: Blood Pressure - High Folic Acid/Vit B Complex and C [Nephro-Lori Tablet] 0.8 mg PO DAILY Omeprazole [PriLOSEC] 20 mg PO DAILY Lactulose [Cephulac] 10 gm PO TID PRN #360 ml PRN Reason: Constipation amLODIPine [Norvasc] 5 mg PO DAILY #30 tab Acetaminophen Tab [Tylenol] 650 mg PO Q6HR PRN tab PRN Reason: Mild Pain Or Fever > 100.5 Lidocaine 5% Patch [Lidoderm 5% Patch] 1 patch TRANSDERM DAILY Discharge Medication List carvediloL [Coreg] 25 mg PO BID PRN 06/27/20 [History] Calcium Acetate [PhosLo] 1,334 mg PO TID-W/MEALS 03/01/21 [History] prednisoLONE ACETATE 1% OPHTH [Pred Forte 1%] 1 drop RIGHT EYE DAILY 09/30/22 [History] Famotidine [Pepcid] 20 mg PO DAILY 07/01/23 [History] Lidocaine-Prilocaine Cream [Emla Cream 2.5%/2.5%] 1 applic TOPICAL DAILY PRN 07/01/23 [History] Sevelamer [Renvela] 3,200 mg PO TID-W/MEALS 07/01/23 [History] Dulaglutide [Trulicity] 3 mg SQ WE 09/21/24 [History] Folic Acid/Vit B Complex and C [Nephro-Lori Tablet] 0.8 mg PO DAILY 09/21/24 [History] carvediloL [Coreg] 6.25 mg PO BID PRN 09/21/24 [History] Ondansetron Odt [Zofran ODT] 4 mg PO Q8HR PRN #10 tab 09/25/24 [Rx] HYDROcodone/APAP 5-325MG [Galena 5-325] 1 tab PO Q6HR PRN 3 Days #12 tab 10/11/24 [Rx] Omeprazole [PriLOSEC] 20 mg PO DAILY 10/12/24 [History] Acetaminophen Tab [Tylenol] 650 mg PO Q6HR PRN tab 10/16/24 [Rx] Lactulose [Cephulac] 10 gm PO TID PRN #360 ml 10/16/24 [Rx] amLODIPine [Norvasc] 5 mg PO DAILY #30 tab 10/16/24 [Rx] hydrALAZINE HCL [Apresoline] 25 mg PO QID PRN #60 tab 10/16/24 [Rx] Insulin Glargine,Hum.rec.anlog [Lantus Solostar Pen] 30 units SQ DAILY 11/09/24 [History] Insulin Lispro [humaLOG Kwikpen] 3 unit SQ AC-TID 11/09/24 [History] Insulin Lispro [humaLOG Kwikpen] See Protocol SQ AC-TID 11/09/24 [History] Lidocaine 5% Patch [Lidoderm 5% Patch] 1 patch TRANSDERM DAILY 11/09/24 [History] Follow up Appointment(s)/Referral(s): Sharri Mckeon MD [Primary Care Provider] - 1-2 days Patient Instructions/Handouts: Perma-cath Placement (DC) Activity/Diet/Wound Care/Special Instructions: Continue same hemodialysis schedule as prior Discharge Disposition: HOME SELF-CARE
[2024-11-15] MEDS ORDERED: NON FORMULARY DRUG (Dulaglutide [Trulicity] 3 MG/0.5 ML Each) SQ SCH (09:00)
== END 2024-11-11 16:27 | disposition home or self-care (01) ==
LOC: EC 07:48 → 6NMEDSUR 08:45
PROVIDERS: ADMIT Hospitalist; ATTEND Hospitalist
DX: T82.41XA Breakdown (mechanical) of vascular dialysis catheter, initial encounter (principal); T82.868A Thrombosis due to vascular prosthetic devices, implants and grafts, initial encounter; Y71.2 Prosthetic and other implants, materials and accessory cardiovascular devices associated with adverse incidents; Y83.2 Surgical operation with anastomosis, bypass or graft as the cause of abnormal reaction of the patient, or of later complication, without mention of misadventure at the time of the procedure; E11.22 Type 2 diabetes mellitus with diabetic chronic kidney disease; I12.0 Hypertensive chronic kidney disease with stage 5 chronic kidney disease or end stage renal disease; N18.6 End stage renal disease; D63.1 Anemia in chronic kidney disease; E11.40 Type 2 diabetes mellitus with diabetic neuropathy, unspecified; E66.9 Obesity, unspecified; G47.33 Obstructive sleep apnea (adult) (pediatric); F41.9 Anxiety disorder, unspecified; M79.7 Fibromyalgia; H40.9 Unspecified glaucoma; Z79.4 Long term (current) use of insulin; Z79.899 Other long term (current) drug therapy; Z79.85 Long-term (current) use of injectable non-insulin antidiabetic drugs; Z86.711 Personal history of pulmonary embolism; Z99.2 Dependence on renal dialysis
CPT/HCPCS: 96372 ×3; 96374; 99285; 36415; 36558; 77001; 80053; 80048; 83735; 85025; 86706; 87340; 71045; G0257 ×2; G0378 ×3; C1750; J2250; J1644 ×4; J2003; J3010; J2997; 90935

== ENCOUNTER → 2024-11-15 | Outpatient (CLI) | payer MEDICARE, OTHER ==
--- NOTE | 2024-11-15 13:39 | CT ---
EXAMINATION TYPE: CT brain wo con CT DLP: 1047.10 mGycm, Automated exposure control for dose reduction was used. DATE OF EXAM: 11/15/2024 1:32 PM COMPARISON: CT brain C-spine 08/25/2022, CT brain 01/13/2022 CLINICAL INDICATION:Male, 54 years old with history of Z87.898 PERSONAL HISTORY OF OTHER SPECIFIED CO NDIT, low blood pressure and syncope episodes TECHNIQUE: Brain: Multiple axial CT images of the brain were obtained without IV contrast. . Coronal and sagitta l reformats reviewed. FINDINGS: Brain: Extra-axial spaces: No abnormal extra-axial fluid collections. Ventricular system: Within normal limits Cerebral parenchyma: No acute intraparenchymal hemorrhage or mass effect. The martel-white junction is well differentiated. Cerebellum: Unremarkable. Mass effect: No evidence of midline shift. Intracranial vasculature: unremarkable Soft tissues: Normal. Calvarium/osseous structures: No depressed skull fracture. Paranasal sinuses and mastoid air cells: Clear Visualized orbits: Redemonstrated scleral and/or retinal calcifications along the posterior aspect of the right lobe which is smaller than the left side. Ophthalmic device along the superolateral aspect of the right globe. Left orbit appears intact. IMPRESSION: No acute intracranial process. No significant change from prior exam. [facility], , 11/15/2024 1:37 PM
--- NOTE | 2024-11-15 14:43 | US ---
EXAMINATION TYPE: US carotid duplex BILAT DATE OF EXAM: 11/15/2024 COMPARISON: NONE CLINICAL INDICATION: Male, 54 years old with history of Z87.898/O SYNCOPE; syncope Additional History: .... TECHNIQUE: Grayscale, color Doppler and spectral Doppler evaluation of the bilateral carotid systems and vertebral arteries. Indirect Doppler criteria was utilized. FINDINGS: EXAM MEASUREMENTS: RIGHT: Peak Systolic Velocity (PSV) cm/sec ----- Right CCA: 81.4 ----- Right ICA: unable to visualize ----- Right ECA: unable to visualize ICA/CCA ratio: unable to obtain RIGHT: End Diastole cm/sec ----- Right CCA: 14.3 ----- Right ICA: unable to visualize ----- Right ECA: unable to visualize LEFT: Peak Systolic Velocity (PSV) cm/sec ----- Left CCA: 117 ----- Left ICA: 98.2 ----- Left ECA: 69.0 ICA/CCA ratio: 0.8 LEFT: End Diastole cm/sec ----- Left CCA: 32.2 ----- Left ICA: 21.0 ----- Left ECA: 15.0 VERTEBRALS (direction of flow): Right Vertebral: Antegrade Left Vertebral: Antegrade Rhythm: Normal BIBLICAL STUDIES PROFESSOR NOTES: very high bifurcation bilaterally. Unable to visualize bulb/ICA/ECA on the right. No stenosis visualized. Very limited exam Color Doppler imaging shows patency with blood flow throughout the carotid artery. Spectral waveforms are within normal limits. IMPRESSION: Right: Not visualized due to high position. Consider CTA neck for complete evaluation of the right bi furcation. Left: No hemodynamically significant stenosis. What is visualized on the left Criteria for Assigning % of Stenosis / Diameter reduction (Estimation based on the indirect measurements of the internal carotid artery velocities (ICA PSV). 1. Normal (no stenosis)=ICA PSV < 125 cm/s: ratio < 2.0: ICA EDV<40 cm/s. 2. Less than 50% stenosis=ICA PSV < 125 cm/s: ratio < 2.0: ICA EDV<40 cm/s. 3. 50 to 69% stenosis=ICA PSV of 125 to 230 cm/s: ration 2.0 ? 4.0: ICA EDV 40-100 cm/s. 4. Greater than 70% stenosis to near occlusion= ICA PSV > 230 cm/s: ratio > 4.0: ICA EDV > 100 cm/s. 5. Near occlusion= ICA PSV velocities may be low or undetectable: variable ratio and ICA EDV. 6. Total occlusion=unable to detect flow. [facility], , 11/15/2024 2:41 PM
== END | disposition home or self-care (01) ==
LOC: RADCTMAIN 12:46
PROVIDERS: ATTEND Family Medicine
DX: R55 Syncope and collapse (principal); Z87.898 Personal history of other specified conditions; Z87.890 Personal history of sex reassignment
CPT/HCPCS: 70450; 93880

== ENCOUNTER 2024-11-25 06:50 | Emergency (ER) | payer MEDICARE, OTHER ==
[2024-11-25 06:53] VITALS: TEMP 98.2
--- NOTE | 2024-11-25 08:25 | ED ---
General Adult HPI - General Chief complaint: Recheck/Abnormal Lab/Rx Stated complaint: Cath issue Time Seen by Provider: 11/25/24 08:24 Source: patient, RN notes reviewed Mode of arrival: ambulatory Limitations: no limitations - History of Present Illness Initial comments: 54-year-old male presents to the emergency department for evaluation of dialysis catheter issues. Patient reports that he just had a replaced about 2 weeks ago and it has been functioning well until today. This was performed by Dr. Rome. He does note that he has been having daily dialysis since having it replaced. He states that the venous access is working well but the arterial access did not work today. He did not receive dialysis because of this. - Related Data Home Medications Medication Instructions Recorded Confirmed carvediloL [Coreg] 25 mg PO BID PRN 06/27/20 11/09/24 Calcium Acetate [PhosLo] 1,334 mg PO TID-W/MEALS 03/01/21 11/09/24 prednisoLONE ACETATE 1% OPHTH 1 drop RIGHT EYE DAILY 09/30/22 11/09/24 [Pred Forte 1%] Famotidine [Pepcid] 20 mg PO DAILY 07/01/23 11/09/24 Lidocaine-Prilocaine Cream [Emla 1 applic TOPICAL DAILY PRN 07/01/23 11/09/24 Cream 2.5%/2.5%] Sevelamer [Renvela] 3,200 mg PO TID-W/MEALS 07/01/23 11/09/24 Dulaglutide [Trulicity] 3 mg SQ WE 09/21/24 11/09/24 Folic Acid/Vit B Complex and C 0.8 mg PO DAILY 09/21/24 11/09/24 [Nephro-Lori Tablet] carvediloL [Coreg] 6.25 mg PO BID PRN 09/21/24 11/09/24 Omeprazole [PriLOSEC] 20 mg PO DAILY 10/12/24 11/09/24 Insulin Glargine,Hum.rec.anlog 30 units SQ DAILY 11/09/24 11/09/24 [Lantus Solostar Pen] Insulin Lispro [humaLOG Kwikpen] 3 unit SQ AC-TID 11/09/24 11/09/24 Insulin Lispro [humaLOG Kwikpen] See Protocol SQ AC-TID 11/09/24 11/09/24 Lidocaine 5% Patch [Lidoderm 5% 1 patch TRANSDERM DAILY 11/09/24 11/09/24 Patch] Previous Rx's Medication Instructions Recorded Ondansetron Odt [Zofran ODT] 4 mg PO Q8HR PRN #10 tab 09/25/24 HYDROcodone/APAP 5-325MG [[place] 1 tab PO Q6HR PRN 3 Days #12 tab 10/11/24 5-325] Acetaminophen Tab [Tylenol] 650 mg PO Q6HR PRN tab 10/16/24 Lactulose [Cephulac] 10 gm PO TID PRN #360 ml 10/16/24 amLODIPine [Norvasc] 5 mg PO DAILY #30 tab 10/16/24 hydrALAZINE HCL [Apresoline] 25 mg PO QID PRN #60 tab 10/16/24 Allergies Allergy/AdvReac Type Severity Reaction Status Date / Time peanut Allergy Anaphylaxis Verified 11/25/24 06:53 Review of Systems ROS Statement: Those systems with pertinent positive or pertinent negative responses have been documented in the HPI. ROS Other: All systems not noted in ROS Statement are negative. Past Medical History Past Medical History: Diabetes Mellitus, Dialysis, Eye Disorder, Fibromyalgia, Hypertension, Pneumonia, Pulmonary Embolus (PE), Renal Disease, Sleep Apnea/CPAP/BIPAP Additional Past Medical History / Comment(s): IDDM type II, neuropathy bilateral feet, chronic renal failure, anemia, chronic lower back and shoulders pain, herniated lumbar disk, glaucoma R eye, carpal tunnel syndrome bilaterally, bron chitis, PAULA with CPAP. Left drop foot, fistula left upper arm, hemodialysis , , right displaced rib History of Any Multi-Drug Resistant Organisms: MRSA Date of last positivie culture/infection: 11/21/12 MDRO Source:: lower back Past Surgical History: Orthopedic Surgery Additional Past Surgical History / Comment(s): Incision and drainage back and R groin r/t abscesses removed, bilateral eye surgery for retinal repair, R eye surgery for glaucoma, fistula-left upper arm, cystoscopy with biopsy, biopsy of right breast lump. Past Anesthesia/Blood Transfusion Reactions: Postoperative Nausea & Vomiting (PONV) Additional Past Anesthesia/Blood Transfusion Reaction / Comment(s): pt stated has recieved blood transfusions-no known reaction. Past Psychological History: Anxiety Smoking Status: Never smoker Past Alcohol Use History: None Reported Past Drug Use History: None Reported - Past Family History Brother(s) Family Medical History: Cancer, Deep Vein Thrombosis (DVT) Additional Family Medical History / Comment(s): colon, lung ca Father Family Medical History: Cancer Additional Family Medical History / Comment(s): Bladder cancer in father. Mother Additional Family Medical History / Comment(s): Mother of brain aneurysm General Exam - General Exam Comments Initial Comments: Visual Physical Exam Vital signs reviewed General: Well-appearing, nontoxic, no acute distress. Head: Normocephalic, atraumatic Eyes: PERRLA, EOMI ENT: Airway patent Chest: Nonlabored breathing Skin: No visual rash, normal skin tone Neuro: Alert and oriented 3 Musculoskeletal: No gross abnormalities Limitations: no limitations General appearance: alert, in no apparent distress Head exam: Present: atraumatic, normocephalic, normal inspection Eye exam: Present: normal appearance, PERRL, EOMI. Absent: scleral icterus, conjunctival injection, periorbital swelling ENT exam: Present: normal exam, mucous membranes moist Respiratory exam: Present: normal lung sounds bilaterally. Absent: respiratory distress, wheezes, rales, rhonchi, stridor Cardiovascular Exam: Present: regular rate, normal rhythm, normal heart sounds. Absent: systolic murmur, diastolic murmur, rubs, gallop, clicks Extremities exam: Present: normal inspection, full ROM, normal capillary refill. Absent: tenderness, pedal edema, joint swelling, calf tenderness Neurological exam: Present: alert, oriented X3 Psychiatric exam: Present: normal affect, normal mood Skin exam: Present: warm, dry, intact, normal color. Absent: rash Course Vital Signs 11/25/24 11/25/24 11/25/24 06:51 11:13 13:00 Temperature 98.2 F 98.2 F Pulse Rate 103 H 82 84 Respiratory 20 20 18 Rate Blood Pressure 160/89 127/83 159/81 O2 Sat by Pulse 99 100 98 Oximetry Medical Decision Making - Medical Decision Making Quick note preformed and electronically signed by Emmy Rueda PA-C Was pt. sent in by a medical professional or institution ([facility] Vivar, [employer], urgent care, hospital, or snf...) When possible be specific @ -No Did you speak to anyone other than the patient for history (EMS, parent, family, police, friend...)? What history was obtained from this source @ -No Did you review nursing and triage notes (agree or disagree)? Why? @ -I reviewed and agree with nursing and triage notes Were old charts reviewed (outside hosp., previous admission, EMS record, old EKG, old radiological studies, urgent care reports/EKG's, snf records)? Report findings @ -No old charts were reviewed Differential Diagnosis (chest pain, altered mental status, abdominal pain women, abdominal pain men, vaginal bleeding, weakness, fever, dyspnea, syncope, headache, dizziness, GI bleed, back pain, seizure, CVA, palpatations, mental health, musculoskeletal)? @ -Not applicable EKG interpreted by me (3pts min.). @ -None X-rays interpreted by me (1pt min.). @ -None done CT interpreted by me (1pt min.). @ -None done U/S interpreted by me (1pt. min.). @ -None done What testing was considered but not performed or refused? (CT, X-rays, U/S, labs)? Why? @ -None What meds were considered but not given or refused? Why? @ -None Did you discuss the management of the patient with other professionals (professionals i.e. , PA, [employer]MINISTRATOR, lab, RT, psych nurse, social and human services assistant, promotional model, teacher, hospital admissions officer, case briefer)? Give summary @ -Management discussed with Dr. Rome who recommends administering Cathflo and leaving this until the patient's next dialysis session. Management was also discussed with Dr. Nieves who is agreeable with discharge and follow up for next dialysis session Was smoking cessation discussed for >3mins.? @ -No Was critical care preformed (if so, how long)? @ -No Were there social determinants of health that impacted care today? How? (Homelessness, low income, unemployed, alcoholism, drug addiction, transportation, low edu. Level, literacy, decrease access to med. care, [facility], rehab)? @ -No Was there de-escalation of care discussed even if they declined (Discuss DNR or withdrawal of care, Hospice)? DNR status @ -No What co-morbidities impacted this encounter? (DM, HTN, Smoking, COPD, CAD, Cancer, CVA, ARF, Chemo, Hep., AIDS, mental health diagnosis, sleep apnea, morbid obesity)? @ -None Was patient admitted / discharged? Hospital course, mention meds given and route, prescriptions, significant lab abnormalities, going to OR and other pertinent info. @ -Discharge. Patient presented to the emergency department for evaluation of dialysis catheter issues. Patient reports that he was not able to have dialysis performed today because the arterial portion of his catheter was not fu nctioning. He does report having this replaced [address] Rome. Laboratory studies obtainedRevealing no significant hyperkalemia, creatinine 10.45 which is consistent with the patient's ESRD and prior creatinines. The case was discussed with Dr. Rome who recommends administering Cathflo and leaving this in place until the next dialysis session. Case was also discussed with Dr. Nieves at the request of the dialysis nurse who is agreeable with patient's discharge plan. Advised patient to attempt to move dialysis session up to Wednesday. He will be discharged home. He is understanding agreeable with this plan. Patient stable at time of discharge. Case discussed with Dr. Gonzalez. Undiagnosed new problem with uncertain prognosis? @ -No Drug Therapy requiring intensive monitoring for toxicity (Heparin, Nitro, Insulin, Cardizem)? @ -No Were any procedures done? @ -No Diagnosis/symptom? @ -Malfunctioning dialysis catheter Acute, or Chronic, or Acute on Chronic? @ -Acute Uncomplicated (without systemic symptoms) or Complicated (systemic symptoms)? @ -Uncomplicated Side effects of treatment? @ -No Exacerbation, Progression, or Severe Exacerbation? @ -No Poses a threat to life or bodily function? How? (Chest pain, [place], [place], pneumonia, PE, COPD, DKA, ARF, appy, cholecystitis, CVA, Diverticulitis, Homicidal, Suicidal, threat to staff... and all critical care pts) @ -No - Lab Data Result diagrams: 11/25/24 08:42 11/25/24 08:42 Lab Results 11/25/24 11/25/24 11/25/24 Range/Units 08:42 08:42 08:42 WBC 5.5 (3.8-10.6) k/uL RBC 3.97 L (4.30-5.90) m/uL Hgb 11.6 L (13.0-17.5) gm/dL Hct 35.1 L (39.0-53.0) % MCV 88.6 (80.0-100.0) fL MCH 29.3 (25.0-35.0) pg MCHC 33.0 (31.0-37.0) g/dL RDW 13.8 (11.5-15.5) % Plt Count 167 (150-450) k/uL MPV 8.0 Neutrophils % 57 % Lymphocytes % 35 % Monocytes % 4 % Eosinophils % 2 % Basophils % 0 % Neutrophils # 3.1 (1.3-7.7) k/uL Lymphocytes # 1.9 (1.0-4.8) k/uL Monocytes # 0.2 (0-1.0) k/uL Eosinophils # 0.1 (0-0.7) k/uL Basophils # 0.0 (0-0.2) k/uL PT 10.7 (10.0-12.5) sec INR 1.0 (<1.2) APTT 25.3 (22.0-30.0) sec Sodium 140 (137-145) mmol/L Potassium 4.4 (3.5-5.1) mmol/L Chloride 100 (98-107) mmol/L Carbon Dioxide 30 (22-30) mmol/L Anion Gap 10 mmol/L BUN 39 H (9-20) mg/dL Creatinine 10.45 H* (0.66-1.25) mg/dL Est GFR (CKD-EPI)AfAm 6 (>60 ml/min/1.73 sqM) Est GFR (CKD-EPI)NonAf 5 (>60 ml/min/1.73 sqM) Glucose 153 H (74-99) mg/dL Calcium 9.6 (8.4-10.2) mg/dL Total Bilirubin 0.4 (0.2-1.3) mg/dL AST 16 L (17-59) U/L ALT 13 (4-49) U/L Alkaline Phosphatase 117 (38-126) U/L Total Protein 6.7 (6.3-8.2) g/dL Albumin 4.2 (3.5-5.0) g/dL Disposition Clinical Impression: Complication, dialysis catheter clot or failure Disposition: HOME SELF-CARE Condition: Stable Additional Instructions: Please follow up for dialysis. Attempt to move up to Wednesday or Wednesday if possible. Return to the emergency department for new or worsening symptoms. Is patient prescribed a controlled substance at d/c from ED?: No Referrals: Sharri Mckeon MD [Primary Care Provider] - 1-2 days
[2024-11-25 08:54] LABS: Basophils % (A) 0 %; Eosinophils # (A) 0.1 k/uL (0-0.7); Eosinophils % (A) 2 %; HCT 35.1 % (39.0-53.0); HGB 11.6 gm/dL (13.0-17.5); Lymphocytes # (A) 1.9 k/uL (1.0-4.8); Lymphocytes % (A) 35 %; MCH 29.3 pg (25.0-35.0); MCV 88.6 fL (80.0-100.0); Monocytes # (A) 0.2 k/uL (0-1.0); Monocytes % (A) 4 %; Neutrophils # (A) 3.1 k/uL (1.3-7.7); Neutrophils % (A) 57 %; Platelet Count 167 k/uL (150-450); RBC 3.97 m/uL (4.30-5.90); RDW 13.8 % (11.5-15.5); WBC 5.5 k/uL (3.8-10.6)
[2024-11-25 09:05] LABS: ALT 13 U/L (4-49); AST 16 U/L (17-59); African American GFR (CKD) 6 (>60 ml/min/1.73 sqM); Albumin 4.2 g/dL (3.5-5.0); Alkaline Phosphatase 117 U/L (38-126); Anion Gap 10 mmol/L; Blood Urea Nitrogen 39 mg/dL (9-20); Calcium 9.6 mg/dL (8.4-10.2); Carbon Dioxide 30 mmol/L (22-30); Chloride 100 mmol/L (98-107); Glucose 153 mg/dL (74-99); Non-African American GFR(CKD) 5 (>60 ml/min/1.73 sqM); Potassium 4.4 mmol/L (3.5-5.1); Sodium 140 mmol/L (137-145); Total Bilirubin 0.4 mg/dL (0.2-1.3); Total Protein 6.7 g/dL (6.3-8.2)
[2024-11-25 09:06] LABS: Partial Thromboplastin Time 25.3 sec (22.0-30.0); Prothrombin Time 10.7 sec (10.0-12.5)
[2024-11-25] MEDS: ALTEPLASE 2 MG VIAL (CATHFLO) MISCELLANE ONE ×2 (12:05→12:20)
[2024-11-25 13:23] VITALS: BP 159/81; PULSE 84; RESP 18
== END 2024-11-25 13:05 | disposition home or self-care (01) ==
LOC: EC 06:50
DX: T82.49XA Other complication of vascular dialysis catheter, initial encounter (principal); Z91.010 Allergy to peanuts; Z99.2 Dependence on renal dialysis
CPT/HCPCS: 99283 ×2; 36593; 36415; 80053; 85025; 85610; 85730; J2997

== ENCOUNTER 2024-12-13 08:14 | Day surgery (SDC) | payer MEDICARE, OTHER ==
[~2024-12-13 08:14] MED LIST changes: +LACTATED RINGERS 1,000 ML IV SCH; +LIDOCAINE 1% (10MG/ML) FOR IV START INTRADERMA PRN; -LIDOCAINE 1% INJ 10MG/ML (20 ML MDV) SQ ONE; -MIDAZOLAM 2 MG/2 ML VIAL IVP ONE; +ONDANSETRON 4 MG/2 ML VIAL IVP PRN; -SODIUM CHLORIDE 0.9% 500 ML 500 ML IV ONE; -fentaNYL (PF) 50 MCG/ML 2 ML AMP ONE
[2024-12-13] MEDS: IV FLUID CONTINUATION 500 ML IV ONE (08:43)
[2024-12-13 08:59] VITALS: TEMP 97.7
[2024-12-13 09:12] LABS: Glucose,Whole Blood 98 mg/dL (70-110)
[2024-12-13] MEDS ORDERED: SODIUM CHLORIDE 0.9% 500 ML 500 ML IV SCH (09:15)
[2024-12-13] MEDS: SODIUM CHLORIDE 0.9% 500 ML 500 ML IV STA (09:20)
[2024-12-13] MEDS ORDERED: PROPOFOL 10 MG/ML 20 ML VIAL IV ONE (10:05)
[2024-12-13] MEDS ORDERED: LIDOCAINE 1% INJ 10MG/ML (20 ML MDV) ONE (10:05)
--- NOTE | 2024-12-13 10:25 | P.PCN ---
Date of Procedure: 12/13/24 Procedure(s) Performed: BRIEF HISTORY: Patient is a 54-year-old pleasant -[place]ian scheduled for an elective colonoscopy as a part of evidence of prior history of colon polyps. Last colonoscopy was in January 2024 and was noted to have a 4 cm polyp in the base of the cecum that was removed endoscopy. 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 He is scheduled for an follow-up colonoscopy in 1 year. PROCEDURE PERFORMED: Colonoscopy snare polypectomy and Endo Clip placed. PREOPERATIVE DIAGNOSIS: Follow-up colon polyps. IV sedation per Anesthesia. PROCEDURE: After informed consent was obtained, the patient, was brought into the endoscopy unit. IV sedation was administered by Anesthesia under continuous monitoring. Digital rectal examination was normal. Initially the Olympus CF-160 flexible video colonoscope was then inserted in the rectum, gradually advanced into the cecum without any difficulty. Careful examination was performed as the scope was gradually being withdrawn. Ileocecal valve and the appendiceal orifice were visualized and appeared normal. Prep was excellent. Mucosa of the cecum had a 2 cm residual polyp identified at the site of previous polypectomy. Complete polypectomy was done using a snare following which Endo Clip was placed . Rest of the ascending colon, transverse colon, descending colon, sigmoid colon, and rectum appeared normal. Retroflexion was performed in the rectum and no lesions were seen. The patient tolerated the procedure well. IMPRESSION: 2 cm residual cecal polyp status post snare polypectomy followed by Endo Clip placement and complete polypectomy accomplished Rest of the colon appeared normal RECOMMENDATIONS: Findings of this examination were discussed with the patient as well as his family. He was advised to follow-up with the biopsy results. Recommended repeat colonoscopy in 1 year..
[2024-12-13 10:33] VITALS: RESP 16
[2024-12-13 11:10] VITALS: BP 143/75; PULSE 81
== END 2024-12-13 11:25 | disposition home or self-care (01) ==
LOC: ORWHC2ENDO 08:14
PROVIDERS: ATTEND Internal Medicine Gastroenterology
DX: Z12.11 Encounter for screening for malignant neoplasm of colon (principal); D12.0 Benign neoplasm of cecum; G47.33 Obstructive sleep apnea (adult) (pediatric); I12.0 Hypertensive chronic kidney disease with stage 5 chronic kidney disease or end stage renal disease; E11.22 Type 2 diabetes mellitus with diabetic chronic kidney disease; N18.6 End stage renal disease; F41.9 Anxiety disorder, unspecified; M79.7 Fibromyalgia; K21.9 Gastro-esophageal reflux disease without esophagitis; Z79.899 Other long term (current) drug therapy; Z87.891 Personal history of nicotine dependence; Z91.010 Allergy to peanuts; Z79.85 Long-term (current) use of injectable non-insulin antidiabetic drugs; Z99.89 Dependence on other enabling machines and devices; Z79.4 Long term (current) use of insulin; Z86.711 Personal history of pulmonary embolism; Z86.0100 Personal history of colon polyps, unspecified
CPT/HCPCS: 45385; J2003; J2704; 88305